=== PATIENT | male | born 1990 | race African-American/Black ===

== ENCOUNTER 2019-07-06 18:26 | Inpatient (IN) | payer MEDICARE, OTHER ==
[~2019-07-06] VITALS: Ht 180.3 cm; Wt 71.1 kg
[2019-07-06 18:30] VITALS: BP 217/120
--- NOTE | 2019-07-06 18:51 | Emergency Room Report ---
History of Present Illness General Chief Complaint: Abnormal Labs Source: Patient Present Illness HPI Patient resents with complaints of diffuse abdominal pain vomiting and diarrhea Patient is a dialysis patient who receives dialysis on Saturday and Saturdays is due tomorrow for his dialysis Denies any chest pain or shortness of breath denies any fevers denies any neck pain or photophobia Patient has not been able to take his medications also reports that his glucose level was reading high Denies any recent travel Patient still does make urine Allergies: Coded Allergies: No Known Allergies (Unverified , 07/06/19) Patient History Past Medical History: see triage record Reviewed Nursing Documentation: PMH: Agreed; PSxH: Agreed Nursing Documentation-PMH Past Medical History: No History, Except For Hx Hypertension: Yes Hx Diabetes: Yes Review of Systems All Other Systems: negative except mentioned in HPI Physical Exam Vital Signs Date Time Temp Pulse Resp B/P (MAP) Pulse Ox O2 Delivery O2 Flow Rate FiO2 07/06/19 18:22 98.4 92 18 237/137 (170) 98 Room Air Sp02 EP Interpretation: reviewed, normal General Appearance: mild distress - Appears uncomfortable and grimacing Head: normocephalic, atraumatic Eyes: bilateral eye PERRL, bilateral eye EOMI ENT: normal pharynx Neck: supple Respiratory: lungs clear, no respiratory distress, no retraction Cardiovascular #1: regular rate, rhythm Gastrointestinal: non tender - On palpation however subjectively points diffusely for the discomfort, soft Genitourinary: no CVA tenderness Musculoskeletal: normal inspection Neurologic: alert, oriented x3, responsive Psychiatric: normal inspection Skin: no rash Lymphatic: no adenopathy Procedures Critical Care Time Critical Care Time 40 minutes for multiple re-evaluations critical presentation concerning findings with concern for life-threatening pathology not including any procedural time Medical Decision Making Diagnostic Impression: Primary Impression: Hypertensive urgency, malignant Additional Impression: Renal failure ER Course Patient is a fairly complex patient with multiple differential to consideration including but not limited to cardiac cardiopulmonary and vascular emergencies Other pathology such as renal failure worsening hyperkalemia entertained Patient's blood pressure is improving with acute intervention Potassium level is appropriate glucose also improving without signs of lactic acidosis Patient requiring further inpatient care Labs Test 07/06/19 18:30 White Blood Count 3.5 K/UL (4.8-10.8) Red Blood Count 3.93 M/UL (4.70-6.10) Hemoglobin 12.2 G/DL (14.2-18.0) Hematocrit 35.7 % (42.0-52.0) Mean Corpuscular Volume 91 FL (80-99) Mean Corpuscular Hemoglobin 30.9 PG (27.0-31.0) Mean Corpuscular Hemoglobin Concent 34.0 G/DL (32.0-36.0) Red Cell Distribution Width 12.3 % (11.6-14.8) Platelet Count 183 K/UL (150-450) Mean Platelet Volume 6.1 FL (6.5-10.1) Neutrophils (%) (Auto) 62.9 % (45.0-75.0) Lymphocytes (%) (Auto) 27.6 % (20.0-45.0) Monocytes (%) (Auto) 5.1 % (1.0-10.0) Eosinophils (%) (Auto) 2.1 % (0.0-3.0) Basophils (%) (Auto) 2.3 % (0.0-2.0) Sodium Level 132 MMOL/L (136-145) Potassium Level 4.0 MMOL/L (3.5-5.1) Chloride Level 92 MMOL/L (98-107) Carbon Dioxide Level 27 MMOL/L (21-32) Anion Gap 13 mmol/L (5-15) Blood Urea Nitrogen 32 mg/dL (7-18) Creatinine 8.7 MG/DL (0.55-1.30) Estimat Glomerular Filtration Rate 7.4 mL/min (>60) Glucose Level 541 MG/DL (74-106) Calcium Level 8.7 MG/DL (8.5-10.1) Total Bilirubin 0.5 MG/DL (0.2-1.0) Aspartate Amino Transf (AST/SGOT) 79 U/L (15-37) Alanine Aminotransferase (ALT/SGPT) 69 U/L (12-78) Alkaline Phosphatase 100 U/L (46-116) Total Creatine Kinase 290 U/L (26-308) Total Protein 7.8 G/DL (6.4-8.2) Albumin 3.8 G/DL (3.4-5.0) Globulin 4.0 g/dL Albumin/Globulin Ratio 0.9 (1.0-2.7) Lipase 75 U/L (73-393) EKG Diagnostic Results Rate: normal Rhythm: NSR ST Segments: other - Nonspecific ST changes Rhythm Strip Diag. Results EP Interpretation: yes Rate: 80 Rhythm: NSR, no PVC's, no ectopy Chest X-Ray Diagnostic Results Chest X-Ray Diagnostic Results : Chest X-Ray Ordered: Yes # of Views/Limited/Complete: 1 View Indication: Chest Pain EP Interpretation: Yes Interpretation: no consolidation, no effusion, no pneumothorax Impression: No acute disease Electronically Signed by: Mehnaz Villarreal DO Last Vital Signs Date Time Temp Pulse Resp B/P (MAP) Pulse Ox O2 Delivery O2 Flow Rate FiO2 07/06/19 18:30 98.7 18 217/120 98 Room Air 07/06/19 18:22 92 Status: improved Disposition: ADMITTED INPATIENT Condition: Serious Mehnaz Villarreal DO Jul 06, 2019 18:51
[2019-07-06 18:54] LABS: BASOPHILS % (AUTO) 2.3 % (0.0-2.0); EOSINOPHILS % (AUTO) 2.1 % (0.0-3.0); HEMATOCRIT 35.7 % (42.0-52.0); HEMOGLOBIN 12.2 G/DL (14.2-18.0); LYMPHOCYTES % (AUTO) 27.6 % (20.0-45.0); MEAN CORPUSCULAR VOLUME 91 FL (80-99); MONOCYTES % (AUTO) 5.1 % (1.0-10.0); NEUTROPHILS % (AUTO) 62.9 % (45.0-75.0); PLATELET COUNT 183 K/UL (150-450); RED BLOOD COUNT 3.93 M/UL (4.70-6.10); RED CELL DISTRIBUTION WIDTH 12.3 % (11.6-14.8); WHITE BLOOD COUNT 3.5 K/UL (4.8-10.8)
[2019-07-06] MEDS ORDERED: Morphine Sulfate 4mg/ml Inj (IV USE ONLY) IVP ONE ×2 (19:00→19:45)
[2019-07-06 19:10] LABS: ALANINE AMINOTRANSFERASE 69 U/L (12-78); ALBUMIN 3.8 G/DL (3.4-5.0); ALBUMIN/GLOBULIN RATIO 0.9 (1.0-2.7); ALKALINE PHOSPHATASE 100 U/L (46-116); ANION GAP 13 mmol/L (5-15); ASPARTATE AMINO TRANSFERASE 79 U/L (15-37); BILIRUBIN,TOTAL 0.5 MG/DL (0.2-1.0); BLOOD UREA NITROGEN 32 mg/dL (7-18); CALCIUM 8.7 MG/DL (8.5-10.1); CARBON DIOXIDE 27 MMOL/L (21-32); CHLORIDE 92 MMOL/L (98-107); CREATINE KINASE 290 U/L (26-308); CREATININE 8.7 MG/DL (0.55-1.30); SODIUM 132 MMOL/L (136-145)
[2019-07-06] MEDS ORDERED: Insulin Human Regular 100units/ml 3ml IV ONE ×2 (19:15→21:00)
[2019-07-06] MEDS ORDERED: DiphenhydrAMINE 50mg/ml Inj IVP ONE (20:45)
[2019-07-06] MEDS ORDERED: Labetalol 5mg/ml 20ml vial IV ONE (21:00)
[2019-07-06] MEDS ORDERED: HYDRALAZINE HCL25 M1 ORAL (21:11)
[2019-07-06] MEDS ORDERED: LABETALOL HCL100 MG ORAL (21:11)
[2019-07-06] MEDS ORDERED: LANTUS SOL100 UNIT/1 SUBQ (21:11)
[2019-07-06] MEDS ORDERED: HUMALOG100 UNIT/4 SUBQ (21:11)
[2019-07-06] MEDS ORDERED: NIFEDIPINE ER30 M2 ORAL (21:11)
[2019-07-06] MEDS ORDERED: CATAPRES0.2 MG ORAL (21:11)
[2019-07-06 21:47] VITALS: BP 192/113
[2019-07-06] MEDS: Labetalol 5mg/ml 20ml vial IV SCH (21:55)
[2019-07-06] MEDS ORDERED: Levemir Flexpen SUBQ SCH (22:00)
[2019-07-06] MEDS ORDERED: HydrALAZINE 50mg tab ORAL SCH (22:00)
[2019-07-06] MEDS: NovoLOG Insulin Flexpen SUBQ SCH (22:13)
--- NOTE | 2019-07-06 22:45 | History and Physical Report ---
DATE OF ADMISSION: 07/06/2019 REASON FOR ADMISSION: 1. Hyperglycemia. 2. Abdominal pain. 3. Hypertension. HISTORY OF PRESENT ILLNESS: The patient is a pleasant 28-year-old gentleman, who undergoes hemodialysis every Saturday, , and Saturday, presenting to the emergency room for evaluation of current abdominal pain. The patient states has not been feeling well for the last one or two days. Started having nausea, vomiting, but no diarrhea. Noted to have extremely elevated glucose. Had not been taking his insulin therapy. Noted to also be hypertensive. The patient is resting otherwise comfortably, in no overt distress. No chest pain. No shortness of breath. ALLERGIES: No known drug allergies. PAST MEDICAL HISTORY: 1. Anemia of chronic kidney disease. 2. End-stage renal disease, on dialysis. 3. Hypertension. 4. Diabetes mellitus. 5. Secondary hyperparathyroidism PAST SURGICAL HISTORY: Right upper extremity AV fistula. FAMILY HISTORY: Positive for hypertension and diabetes. REVIEW OF SYSTEMS: NEUROLOGIC: The patient denies headache, change in vision, syncope or presyncopal episodes. CARDIOVASCULAR: No current chest pain, palpitations, angina. PULMONARY: Difficulty breathing, productive cough, sputum. GASTROINTESTINAL/GENITOURINARY: The patient having nausea and vomiting, but no diarrhea. ENDOCRINOLOGY: No night sweats, fevers, or chills. MUSCULOSKELETAL: The patient feeling weak, tired, and fatigue. LABORATORY DATA: Laboratories dated July 06, 2019, white cell count 3.5, hemoglobin 12.2, and platelet count 183. Sodium 132, creatinine 7.4, glucose 541, potassium 4.0. PHYSICAL EXAMINATION: VITAL SIGNS: Blood pressure 198/115, pulse 103, temperature 98.7. GENERAL: The patient awake, alert, not in distress. HEENT: Extraocular muscles intact. No lymphadenopathy noted. Oropharyngeal mucosa is clear and dry. CARDIOVASCULAR: S1, S2. No rubs or gallops. PULMONARY: Clear to auscultation bilaterally. No rales, rhonchi, or wheezes. ABDOMINAL: Nondistended and nontender. EXTREMITIES: No edema noted. ASSESSMENT AND PLAN: 1. End-stage renal disease, on dialysis. We will continue set hemodialysis session on Saturday, , Saturday. Orders have been placed. 2. Hypertensive urgency. We will continue home medications. Continue labetalol, Procardia, and hydralazine. 3. Hyperglycemia. We will re-initiate Levemir along with insulin sliding scale, low carbohydrate diet, and Accu-Cheks. 4. Anemia of chronic kidney disease. Hemoglobin currently 12.2. No need for Epogen. The patient is also hypertensive. 5. SCD prophylaxis for DVT prophylaxis. 6. GI prophylaxis with famotidine. 7. Gastroenterology has been consulted to further evaluate abdominal pain. Arsalan Rhodes MD DR: ALBERTO JOB#: [id number] CC:
[2019-07-06] MEDS: Morphine Sulfate 2mg/ml Inj(IV/IM USE ONLY) IVP PRN (23:57)
[2019-07-07] VITALS (7 sets, daily range): BP systolic 151–176; BP diastolic 86–110
[2019-07-07] MEDS: Labetalol 5mg/ml 20ml vial IV SCH ×2 (01:53→06:04)
[2019-07-07] MEDS: DiphenhydrAMINE 50mg/ml Inj IVP PRN ×3 (03:45→20:33)
[2019-07-07] MEDS: Morphine Sulfate 2mg/ml Inj(IV/IM USE ONLY) IVP PRN ×5 (04:09→23:22)
[2019-07-07 04:34] LABS: BASOPHILS % (AUTO) 2.7 % (0.0-2.0); EOSINOPHILS % (AUTO) 4.2 % (0.0-3.0); HEMATOCRIT 30.3 % (42.0-52.0); HEMOGLOBIN 10.6 G/DL (14.2-18.0); LYMPHOCYTES % (AUTO) 35.6 % (20.0-45.0); MEAN CORPUSCULAR VOLUME 89 FL (80-99); MONOCYTES % (AUTO) 10.6 % (1.0-10.0); NEUTROPHILS % (AUTO) 46.9 % (45.0-75.0); PLATELET COUNT 163 K/UL (150-450); RED BLOOD COUNT 3.42 M/UL (4.70-6.10); RED CELL DISTRIBUTION WIDTH 12.7 % (11.6-14.8); WHITE BLOOD COUNT 3.5 K/UL (4.8-10.8)
[2019-07-07 04:53] LABS: ANION GAP 9 mmol/L (5-15); BLOOD UREA NITROGEN 35 mg/dL (7-18); CALCIUM 8.3 MG/DL (8.5-10.1); CARBON DIOXIDE 29 MMOL/L (21-32); CHLORIDE 97 MMOL/L (98-107); CREATININE 8.9 MG/DL (0.55-1.30); POTASSIUM 3.5 MMOL/L (3.5-5.1); SODIUM 135 MMOL/L (136-145)
[2019-07-07] MEDS: NovoLOG Insulin Flexpen SUBQ SCH ×4 (06:22→21:16)
--- NOTE | 2019-07-07 08:26 | General Progress Note ---
Assessment/Plan Assessment/Plan: GI CONSULT Dictated Assessment - ill defined diffuse abd pain, recent onset - ESRD - patient appears comfortable Recommendations - check CT abd/pelvis - wean off of narcotics as tolerated - po diet ad chris Subjective Allergies: Coded Allergies: No Known Allergies (Unverified , 07/06/19) Objective Last 24 Hour Vital Signs Date Time Temp Pulse Resp B/P (MAP) Pulse Ox O2 Delivery O2 Flow Rate FiO2 07/07/19 06:04 88 166/110 07/07/19 04:00 98.4 87 20 167/108 (127) 98 07/07/19 04:00 Room Air 07/07/19 03:48 84 07/07/19 01:53 86 166/103 07/07/19 00:00 Room Air 07/07/19 00:00 98.2 86 20 176/110 (132) 100 07/06/19 23:24 84 07/06/19 22:07 Room Air 07/06/19 21:55 89 182/107 07/06/19 21:47 97.2 88 20 192/113 (139) 98 07/06/19 21:10 98.9 88 18 198/115 98 Room Air 07/06/19 20:57 103 198/115 07/06/19 20:16 98.9 07/06/19 19:37 183/102 07/06/19 19:26 98.9 07/06/19 18:30 98.7 18 217/120 98 Room Air 07/06/19 18:22 98.4 92 18 237/137 (170) 98 Room Air Intake and Output 07/06/19 07/07/19 19:00 07:00 Intake Total 720 ml Balance 720 ml Intake Oral 720 ml Laboratory Tests 07/06/19 18:30: White Blood Count 3.5L, Red Blood Count 3.93L, Hemoglobin 12.2L, Hematocrit 35.7L, Mean Corpuscular Volume 91, Mean Corpuscular Hemoglobin 30.9, Mean Corpuscular Hemoglobin Concent 34.0, Red Cell Distribution Width 12.3, Platelet Count 183, Mean Platelet Volume 6.1L, Neutrophils (%) (Auto) 62.9, Lymphocytes ( %) (Auto) 27.6, Monocytes (%) (Auto) 5.1, Eosinophils (%) (Auto) 2.1, Basophils (%) (Auto) 2.3H, Sodium Level 132L, Potassium Level 4.0, Chloride Level 92L, Carbon Dioxide Level 27, Anion Gap 13, Blood Urea Nitrogen 32H, Creatinine 8.7H , Estimat Glomerular Filtration Rate 7.4, Glucose Level 541*H, Calcium Level 8.7 , Total Bilirubin 0.5, Aspartate Amino Transf (AST/SGOT) 79H, Alanine Aminotransferase (ALT/SGPT) 69, Alkaline Phosphatase 100, Total Creatine Kinase 290, Total Protein 7.8, Albumin 3.8, Globulin 4.0, Albumin/Globulin Ratio 0.9L, Lipase 75 07/07/19 03:30: White Blood Count 3.5L, Red Blood Count 3.42L, Hemoglobin 10.6L, Hematocrit 30.3L, Mean Corpuscular Volume 89, Mean Corpuscular Hemoglobin 31.0, Mean Corpuscular Hemoglobin Concent 35.0, Red Cell Distribution Width 12.7, Platelet Count 163, Mean Platelet Volume 5.8L, Neutrophils (%) (Auto) 46.9, Lymphocytes ( %) (Auto) 35.6, Monocytes (%) (Auto) 10.6H, Eosinophils (%) (Auto) 4.2H, Basophils (%) (Auto) 2.7H, Sodium Level 135L, Potassium Level 3.5, Chloride Level 97L, Carbon Dioxide Level 29, Anion Gap 9, Blood Urea Nitrogen 35H, Creatinine 8.9H, Estimat Glomerular Filtration Rate 8.7, Glucose Level 124#H, Calcium Level 8.3L Height (Feet): 5 Height (Inches): 11.00 Weight (Pounds): 157 Alexander Curry MD Jul 07, 2019 08:26
--- NOTE | 2019-07-07 09:41 | Nephrology Progress Note ---
Assessment/Plan Assessment/Plan: A/P 1) ESRD- HD today ordered. TTS 2) DM- will adjust insulin therapy 3) HTN Urgency- can be downgraded once tolerated oral HTN pills 4) Abd Pain- per GI mgmt 5) DVT prophylaxsis with SCDs Subjective Date patient seen: Jul 07, 2019 Time patient seen: 09:36 ROS Limited/Unobtainable: Yes Allergies: Coded Allergies: No Known Allergies (Unverified , 07/06/19) Subjective Abd pain slightly better. No overt distress Objective Last 24 Hour Vital Signs Date Time Temp Pulse Resp B/P (MAP) Pulse Ox O2 Delivery O2 Flow Rate FiO2 07/07/19 08:25 84 174/103 07/07/19 08:24 174/103 07/07/19 06:04 88 166/110 07/07/19 04:00 98.4 87 20 167/108 (127) 98 07/07/19 04:00 Room Air 07/07/19 03:48 84 07/07/19 01:53 86 166/103 07/07/19 00:00 Room Air 07/07/19 00:00 98.2 86 20 176/110 (132) 100 07/06/19 23:24 84 07/06/19 22:07 Room Air 07/06/19 21:55 89 182/107 07/06/19 21:47 97.2 88 20 192/113 (139) 98 07/06/19 21:10 98.9 88 18 198/115 98 Room Air 07/06/19 20:57 103 198/115 07/06/19 20:16 98.9 07/06/19 19:37 183/102 07/06/19 19:26 98.9 07/06/19 18:30 98.7 18 217/120 98 Room Air 07/06/19 18:22 98.4 92 18 237/137 (170) 98 Room Air Intake and Output 07/06/19 07/07/19 19:00 07:00 Intake Total 720 ml Balance 720 ml Intake Oral 720 ml Laboratory Tests 07/06/19 18:30: White Blood Count 3.5L, Red Blood Count 3.93L, Hemoglobin 12.2L, Hematocrit 35.7L, Mean Corpuscular Volume 91, Mean Corpuscular Hemoglobin 30.9, Mean Corpuscular Hemoglobin Concent 34.0, Red Cell Distribution Width 12.3, Platelet Count 183, Mean Platelet Volume 6.1L, Neutrophils (%) (Auto) 62.9, Lymphocytes ( %) (Auto) 27.6, Monocytes (%) (Auto) 5.1, Eosinophils (%) (Auto) 2.1, Basophils (%) (Auto) 2.3H, Sodium Level 132L, Potassium Level 4.0, Chloride Level 92L, Carbon Dioxide Level 27, Anion Gap 13, Blood Urea Nitrogen 32H, Creatinine 8.7H , Estimat Glomerular Filtration Rate 7.4, Glucose Level 541*H, Calcium Level 8.7 , Total Bilirubin 0.5, Aspartate Amino Transf (AST/SGOT) 79H, Alanine Aminotransferase (ALT/SGPT) 69, Alkaline Phosphatase 100, Total Creatine Kinase 290, Total Protein 7.8, Albumin 3.8, Globulin 4.0, Albumin/Globulin Ratio 0.9L, Lipase 75 07/07/19 03:30: White Blood Count 3.5L, Red Blood Count 3.42L, Hemoglobin 10.6L, Hematocrit 30.3L, Mean Corpuscular Volume 89, Mean Corpuscular Hemoglobin 31.0, Mean Corpuscular Hemoglobin Concent 35.0, Red Cell Distribution Width 12.7, Platelet Count 163, Mean Platelet Volume 5.8L, Neutrophils (%) (Auto) 46.9, Lymphocytes ( %) (Auto) 35.6, Monocytes (%) (Auto) 10.6H, Eosinophils (%) (Auto) 4.2H, Basophils (%) (Auto) 2.7H, Sodium Level 135L, Potassium Level 3.5, Chloride Level 97L, Carbon Dioxide Level 29, Anion Gap 9, Blood Urea Nitrogen 35H, Creatinine 8.9H, Estimat Glomerular Filtration Rate 8.7, Glucose Level 124#H, Calcium Level 8.3L Height (Feet): 5 Height (Inches): 11.00 Weight (Pounds): 157 General Appearance: no apparent distress, alert EENT: normal ENT inspection Neck: normal alignment, supple Cardiovascular: normal rate, regular rhythm Respiratory/Chest: lungs clear, normal breath sounds Abdomen: non tender, soft Edema: no edema noted Arm (L), no edema noted Arm (R), no edema noted Leg (L), no edema noted Leg (R), no edema noted Pedal (L), no edema noted Pedal (R), no edema noted Generalized Arsalan Rhodes MD Jul 07, 2019 09:41
--- NOTE | 2019-07-07 12:02 | Diagnostic Imaging Report ---
Indication: Chest pain Technique: One view of the chest Comparison: none Findings: Lungs and pleural spaces are clear. Heart size is normal Impression: No acute process
--- NOTE | 2019-07-07 12:35 | Cardiology Report ---
APPROVED REPORT EKG Measurement Heart [id number] Normal sinus rhythm Normal ECG
--- NOTE | 2019-07-07 14:53 | Diagnostic Imaging Report ---
Indication: Abdominal pain Technique: Spiral acquisitions obtained through the abdomen and pelvis. Patient ingested oral contrast. No IV contrast utilized, per referring physician request.. Multiplanar reconstructions were generated. Total dose length product 948 mGycm. CTDIvol(s) 16 mGy. Dose reduction achieved using automated exposure control Comparison: None Findings: The patient is diffusely edematous, with edema of the subcutaneous fat mesenteric fat, and retroperitoneal fat. A small amount of fluid is also seen within the pelvis. There are trace bilateral pleural effusions and a small amount of pericardial fluid. The appendix is normal. No evidence of colonic diverticulosis or diverticulitis. No free intraperitoneal gas. No small bowel dilatation. The distal esophagus, stomach, duodenum are unremarkable. Lack of IV contrast limits assessment of the solid organs. The liver, gallbladder, pancreas, spleen, adrenals, kidneys are unremarkable. The bladder is somewhat thick walled. No pelvic mass or adenopathy. The included lung bases demonstrate atelectatic changes bilaterally and possibly some consolidation. There are trace bilateral pleural effusions, as mentioned earlier. The heart is mildly enlarged. The bones are unremarkable Impression: Evidence of anasarca, with diffuse edema of the subcutaneous, mesenteric, retroperitoneal fat, free intraperitoneal fluid, trace bilateral pleural effusions, trace pericardial effusion Thick-walled bladder, could indicate cystitis Basilar pulmonary parenchymal atelectasis and possible consolidation The CT scanner at [facility] is accredited by the [employer] and the scans are performed using protocols designed to limit radiation exposure to as low as reasonably achievable to attain images of sufficient resolution adequate for diagnostic evaluation.
[2019-07-07] MEDS ORDERED: DiphenhydrAMINE 50mg/ml Inj IVP SCH (15:00)
--- NOTE | 2019-07-07 21:15 | History and Physical Report ---
DATE OF ADMISSION: 07/06/2019 INSURANCE BILLING SPECIALIST: Arsalan Rhodes M.D. CHIEF COMPLAINT: Hyperglycemia, malignant hypertension, and renal failure, on dialysis. BRIEF HISTORY: This is a 28-year-old male, who lives at home, presents with increased elevated blood sugar. He also has malignant hypertension and ESRD. The patient was admitted to [facility] for further care. Currently, getting dialysis, eating, no complaint. REVIEW OF SYSTEMS: No chest pain. No shortness of breath. No nausea, vomiting, or diarrhea. PAST MEDICAL HISTORY: Hypertension, diabetes, and ESRD. PAST SURGICAL HISTORY: . MEDICATIONS: Famotidine, nifedipine, hydralazine, labetalol, insulin, Zofran, morphine, Tylenol, diphenhydramine, and insulin. ALLERGIES: Denies. SOCIAL HISTORY: No smoking. No alcohol. No intravenous drug abuse. FAMILY HISTORY: Noncontributory. PHYSICAL EXAMINATION: GENERAL: Calm in bed, oriented x3, no acute distress. VITAL SIGNS: Temperature is 98 degrees, pulse 86, respirations 20, and blood pressure 172/102. CARDIOVASCULAR: No murmurs. LUNGS: Distant and clear. ABDOMEN: Bowel sounds positive. Nontender. Nondistended. EXTREMITIES: No cyanosis, clubbing, or edema. NEUROLOGIC: The patient moves all extremities, slightly weak. LABORATORY AND DIAGNOSTIC DATA: Labs at this time show white count 3.5, H and H are 10 and 30, and platelets is 163,000. BMP shows sodium 135, chloride 97, BUN and are creatinine are 35 and 8.9, and glucose now is 124, initially was 541. ASSESSMENT: 1. Malignant hypertension. 2. Diabetes. 3. Hyperglycemia. 4. ESRD. 5. Anemia. PLAN: 1. Blood pressure and blood sugar control. 2. Dietary followup. 3. Nephrology followup. 4. Dialysis p.r.n. 5. Resume home medications. 6. CBC and BMP in the morning. Maikel Little D.O. DR: STEFANY JOB#: [id number] CC:
[2019-07-07] MEDS ORDERED: Levemir Flexpen SUBQ SCH ×2 (22:00)
[2019-07-08] VITALS: BP 154/99
[2019-07-08 04:00] VITALS: BP 170/112
--- NOTE | 2019-07-08 04:01 | Consultation ---
DATE OF CONSULTATION: 07/07/2019 GASTROENTEROLOGY CONSULTATION CHIEF COMPLAINT: I was asked to see this patient by Dr. Arsalan Rhodes for evaluation for abdominal pain. HISTORY OF PRESENT ILLNESS: The patient is a pleasant 28-year-old man who complains of a two-day history of nausea, vomiting, and abdominal pain. The patient is a dialysis patient and . The patient goes to dialysis on Tuesdays, , and Saturdays. He came to the emergency room with abdominal pain which is all over the abdomen. There has been some nausea and vomiting but none today. Last bowel movement was yesterday and last endoscopy was three months ago. He has not had a colonoscopy. PAST MEDICAL HISTORY: History of anemia of chronic disease, end-stage renal disease on dialysis, hypertension, diabetes mellitus, secondary hyperparathyroidism. PAST SURGICAL HISTORY: Status post AV fistula placement. FAMILY HISTORY: Positive for hypertension and diabetes. SOCIAL HISTORY: The patient is single, has no children. Does not smoke, drink alcohol, or use drugs. REVIEW OF SYSTEMS: Otherwise negative. PHYSICAL EXAMINATION: GENERAL: This is a debilitated young man, seen in his room. HEENT: Normocephalic and atraumatic. Sclerae anicteric. Dentition was fair. NECK: Supple. CHEST: Clear to auscultation. CARDIOVASCULAR: Revealed a regular rate. ABDOMEN: Soft with good bowel sounds. There is some mild tenderness to palpation but the patient was not apparently tender. He was distracted during the examination. There are no masses. EXTREMITIES: Revealed no edema. LABORATORY DATA: Noted. ASSESSMENT: This patient presents with vague complaints of abdominal pain of unclear etiology. He appears to be comfortable on examination and therefore can be treated conservatively. The patient can also have bowel regimen. I will check CT scan of the abdomen and pelvis to rule out any significant intraabdominal pathology. RECOMMENDATIONS: Per above discussion and per orders written in the chart. Thank you for asking me to participate in the care of this patient. Alexander Curry M.D. DR: Zafar JOB#: [id number] CC: FRANTZ
[2019-07-08] MEDS: DiphenhydrAMINE 50mg/ml Inj IVP PRN ×3 (05:42→23:58)
[2019-07-08] MEDS: Morphine Sulfate 2mg/ml Inj(IV/IM USE ONLY) IVP PRN ×5 (05:42→23:59)
[2019-07-08] MEDS: NovoLOG Insulin Flexpen SUBQ SCH ×4 (05:55→21:23)
[2019-07-08 07:25] LABS: EOSINOPHILS % (AUTO) 4.3 % (0.0-3.0); HEMOGLOBIN 10.8 G/DL (14.2-18.0); LYMPHOCYTES % (AUTO) 24.6 % (20.0-45.0); MEAN CORPUSCULAR VOLUME 92 FL (80-99); MONOCYTES % (AUTO) 8.1 % (1.0-10.0); NEUTROPHILS % (AUTO) 60.9 % (45.0-75.0); PLATELET COUNT 181 K/UL (150-450); RED BLOOD COUNT 3.46 M/UL (4.70-6.10); RED CELL DISTRIBUTION WIDTH 13.7 % (11.6-14.8); WHITE BLOOD COUNT 3.9 K/UL (4.8-10.8)
[2019-07-08 07:55] LABS: ANION GAP 8 mmol/L (5-15); BLOOD UREA NITROGEN 24 mg/dL (7-18); CALCIUM 8.4 MG/DL (8.5-10.1); CARBON DIOXIDE 29 MMOL/L (21-32); CHLORIDE 97 MMOL/L (98-107); CREATININE 7.7 MG/DL (0.55-1.30); SODIUM 134 MMOL/L (136-145)
[2019-07-08 07:56] LABS: POTASSIUM 4.9 MMOL/L (3.5-5.1)
[2019-07-08 08:00] VITALS: BP 162/95
--- NOTE | 2019-07-08 08:15 | Nephrology Progress Note ---
Assessment/Plan Assessment/Plan: A/P 1) ESRD- TTS - 3-4 L UF in am - anticipate DC Fri or Sat once BP under control 2) DM- insulin therapy 3) HTN Urgency- resolved. Increase labetalol 4) Abd Pain- per GI mgmt. CT results noted 5) DVT prophylaxsis with SCDs Subjective Date patient seen: Jul 08, 2019 Time patient seen: 08:13 ROS Limited/Unobtainable: No Allergies: Coded Allergies: No Known Allergies (Unverified , 07/06/19) Subjective Abd pain slightly better and now tolerating PO Objective Last 24 Hour Vital Signs Date Time Temp Pulse Resp B/P (MAP) Pulse Ox O2 Delivery O2 Flow Rate FiO2 07/08/19 05:42 91 170/112 07/08/19 04:00 98.1 91 18 170/112 (131) 98 07/08/19 04:00 Room Air 07/08/19 04:00 89 07/08/19 00:00 Room Air 07/08/19 00:00 96.0 95 20 154/99 (117) 98 07/08/19 00:00 89 07/07/19 22:00 Room Air 07/07/19 21:11 92 151/98 07/07/19 20:00 94 07/07/19 20:00 Room Air 07/07/19 20:00 97.0 92 20 151/98 (115) 99 07/07/19 17:47 Room Air 07/07/19 16:00 Room Air 07/07/19 16:00 95 07/07/19 16:00 97.8 83 20 157/86 (109) 98 07/07/19 13:27 88 07/07/19 12:33 172/102 07/07/19 12:00 98.1 86 20 172/102 (125) 99 07/07/19 12:00 Room Air 07/07/19 10:00 157/94 (115) 07/07/19 08:25 84 174/103 07/07/19 08:24 174/103 Intake and Output 07/07/19 07/08/19 19:00 07:00 Intake Total 840 ml 120 ml Balance 840 ml 120 ml Intake Oral 480 ml 120 ml Other 360 ml # Voids 1 Laboratory Tests 07/08/19 05:48: White Blood Count 3.9L, Red Blood Count 3.46L, Hemoglobin 10.8L, Hematocrit 32.0L, Mean Corpuscular Volume 92, Mean Corpuscular Hemoglobin 31.1H, Mean Corpuscular Hemoglobin Concent 33.6, Red Cell Distribution Width 13.7, Platelet Count 181, Mean Platelet Volume 5.3L, Neutrophils (%) (Auto) 60.9, Lymphocytes ( %) (Auto) 24.6, Monocytes (%) (Auto) 8.1, Eosinophils (%) (Auto) 4.3H, Basophils (%) (Auto) 2.0, Sodium Level 134L, Potassium Level 4.9, Chloride Level 97L, Carbon Dioxide Level 29, Anion Gap 8, Blood Urea Nitrogen 24H, Creatinine 7.7H, Estimat Glomerular Filtration Rate 10.4, Glucose Level 66L, Calcium Level 8.4L Height (Feet): 5 Height (Inches): 11.00 Weight (Pounds): 156 General Appearance: no apparent distress, alert EENT: normal ENT inspection Neck: normal alignment, supple Cardiovascular: normal rate, regular rhythm Respiratory/Chest: lungs clear, normal breath sounds Abdomen: non tender, soft Edema: no edema noted Arm (L), no edema noted Arm (R), no edema noted Leg (L), no edema noted Leg (R), no edema noted Pedal (L), no edema noted Pedal (R), no edema noted Generalized Arsalan Rhodes MD Jul 08, 2019 08:15
[2019-07-08 12:00] VITALS: BP 158/86
[2019-07-08] MEDS ORDERED: Labetalol 200mg tab ORAL SCH (14:00)
--- NOTE | 2019-07-08 14:41 | General Progress Note ---
Assessment/Plan Problem List: (1) Renal failure ICD Codes: N19 - Unspecified kidney failure SNOMED: 26984414, 166521845 (2) Hypertensive urgency, malignant ICD Codes: I16.0 - Hypertensive urgency SNOMED: 89560900, 784395283 (3) Hyperglycemia ICD Codes: R73.9 - Hyperglycemia, unspecified SNOMED: 12076108 (4) Abdominal pain ICD Codes: R10.9 - Unspecified abdominal pain SNOMED: 93235825 Status: unchanged Assessment/Plan: bp bs pain control dialysis prn cbc bmp am Subjective Allergies: Coded Allergies: No Known Allergies (Unverified , 07/06/19) All Systems: reviewed and negative except above Subjective sleepy calm Objective Last 24 Hour Vital Signs Date Time Temp Pulse Resp B/P (MAP) Pulse Ox O2 Delivery O2 Flow Rate FiO2 07/08/19 14:15 92 158/86 07/08/19 12:00 92 07/08/19 12:00 97.3 89 18 158/86 (110) 97 07/08/19 08:41 86 162/95 07/08/19 08:00 97.9 86 18 162/95 (117) 96 07/08/19 08:00 Room Air 07/08/19 08:00 88 07/08/19 05:42 91 170/112 07/08/19 04:00 98.1 91 18 170/112 (131) 98 07/08/19 04:00 Room Air 07/08/19 04:00 89 07/08/19 00:00 Room Air 07/08/19 00:00 96.0 95 20 154/99 (117) 98 07/08/19 00:00 89 07/07/19 22:00 Room Air 07/07/19 21:11 92 151/98 07/07/19 20:00 94 07/07/19 20:00 Room Air 07/07/19 20:00 97.0 92 20 151/98 (115) 99 07/07/19 17:47 Room Air 07/07/19 16:00 Room Air 07/07/19 16:00 95 07/07/19 16:00 97.8 83 20 157/86 (109) 98 Intake and Output 07/07/19 07/08/19 19:00 07:00 Intake Total 840 ml 120 ml Balance 840 ml 120 ml Intake Oral 480 ml 120 ml Other 360 ml # Voids 1 Laboratory Tests 07/08/19 05:48: White Blood Count 3.9L, Red Blood Count 3.46L, Hemoglobin 10.8L, Hematocrit 32.0L, Mean Corpuscular Volume 92, Mean Corpuscular Hemoglobin 31.1H, Mean Corpuscular Hemoglobin Concent 33.6, Red Cell Distribution Width 13.7, Platelet Count 181, Mean Platelet Volume 5.3L, Neutrophils (%) (Auto) 60.9, Lymphocytes ( %) (Auto) 24.6, Monocytes (%) (Auto) 8.1, Eosinophils (%) (Auto) 4.3H, Basophils (%) (Auto) 2.0, Sodium Level 134L, Potassium Level 4.9, Chloride Level 97L, Carbon Dioxide Level 29, Anion Gap 8, Blood Urea Nitrogen 24H, Creatinine 7.7H, Estimat Glomerular Filtration Rate 10.4, Glucose Level 66L, Calcium Level 8.4L Height (Feet): 5 Height (Inches): 11.00 Weight (Pounds): 156 General Appearance: lethargic EENT: normal ENT inspection Neck: normal alignment Cardiovascular: normal peripheral pulses, normal rate, regular rhythm Respiratory/Chest: chest wall non-tender, lungs clear, normal breath sounds Abdomen: normal bowel sounds, non tender, soft Extremities: normal inspection Edema: no edema noted Arm (L), no edema noted Arm (R), no edema noted Leg (L), no edema noted Leg (R), no edema noted Pedal (L), no edema noted Pedal (R), no edema noted Generalized Neurologic: responsive, motor weakness Skin: normal pigmentation, warm/dry Maikel Little DO Jul 08, 2019 14:41
[2019-07-08 16:00] VITALS: BP 163/95
[2019-07-08 20:00] VITALS: BP 185/106
[2019-07-08] MEDS: Labetalol 200mg tab ORAL SCH (21:24)
[2019-07-08] MEDS ORDERED: Levemir Flexpen SUBQ SCH (22:00)
--- NOTE | 2019-07-08 22:47 | General Progress Note ---
Assessment/Plan Status: unchanged Assessment/Plan: Assessment - ill defined diffuse abd pain, recent onset - ESRD - patient appears comfortable at encounters - mild transaminitis Recommendations - Re check LFT - laxative trial - wean off of narcotics as tolerated - po diet ad chris Subjective Allergies: Coded Allergies: No Known Allergies (Unverified , 07/06/19) Subjective feels ok still with some abd pain tolerating PO Objective Last 24 Hour Vital Signs Date Time Temp Pulse Resp B/P (MAP) Pulse Ox O2 Delivery O2 Flow Rate FiO2 07/08/19 21:24 91 185/106 07/08/19 21:23 91 185/106 07/08/19 20:37 98.4 07/08/19 20:23 Room Air 07/08/19 20:00 97.9 91 18 185/106 (132) 97 07/08/19 16:00 88 07/08/19 16:00 98.4 89 18 163/95 (117) 97 07/08/19 14:15 92 158/86 07/08/19 12:00 92 07/08/19 12:00 97.3 89 18 158/86 (110) 97 07/08/19 08:41 86 162/95 07/08/19 08:00 97.9 86 18 162/95 (117) 96 07/08/19 08:00 Room Air 07/08/19 08:00 88 07/08/19 05:42 91 170/112 07/08/19 04:00 98.1 91 18 170/112 (131) 98 07/08/19 04:00 Room Air 07/08/19 04:00 89 07/08/19 00:00 Room Air 07/08/19 00:00 96.0 95 20 154/99 (117) 98 07/08/19 00:00 89 Intake and Output 07/07/19 07/08/19 18:59 06:59 Intake Total 840 ml 120 ml Balance 840 ml 120 ml Intake Oral 480 ml 120 ml Other 360 ml # Voids 1 Laboratory Tests 07/08/19 05:48: White Blood Count 3.9L, Red Blood Count 3.46L, Hemoglobin 10.8L, Hematocrit 32.0L, Mean Corpuscular Volume 92, Mean Corpuscular Hemoglobin 31.1H, Mean Corpuscular Hemoglobin Concent 33.6, Red Cell Distribution Width 13.7, Platelet Count 181, Mean Platelet Volume 5.3L, Neutrophils (%) (Auto) 60.9, Lymphocytes ( %) (Auto) 24.6, Monocytes (%) (Auto) 8.1, Eosinophils (%) (Auto) 4.3H, Basophils (%) (Auto) 2.0, Sodium Level 134L, Potassium Level 4.9, Chloride Level 97L, Carbon Dioxide Level 29, Anion Gap 8, Blood Urea Nitrogen 24H, Creatinine 7.7H, Estimat Glomerular Filtration Rate 10.4, Glucose Level 66L, Calcium Level 8.4L Height (Feet): 5 Height (Inches): 11.00 Weight (Pounds): 156 Objective WDWN NCAT supple CTA RRR abd soft ND no edema Alexander Curry MD Jul 08, 2019 22:47
[2019-07-08] MEDS: Sorbitol Solution UD 30ml ORAL ONE (23:58)
[2019-07-09] VITALS (7 sets, daily range): BP systolic 131–199; BP diastolic 62–110
[2019-07-09] MEDS: Sorbitol Solution UD 30ml ORAL ONE ×2 (00:02→00:05)
[2019-07-09] MEDS: Morphine Sulfate 2mg/ml Inj(IV/IM USE ONLY) IVP PRN ×5 (04:32→21:25)
[2019-07-09] MEDS: Labetalol 200mg tab ORAL SCH ×3 (05:58→21:24)
[2019-07-09] MEDS: NovoLOG Insulin Flexpen SUBQ SCH ×3 (05:59→21:27)
[2019-07-09 06:26] LABS: BASOPHILS % (AUTO) 1.2 % (0.0-2.0); EOSINOPHILS % (AUTO) 4.2 % (0.0-3.0); HEMOGLOBIN 9.9 G/DL (14.2-18.0); LYMPHOCYTES % (AUTO) 24.5 % (20.0-45.0); MEAN CORPUSCULAR VOLUME 96 FL (80-99); MONOCYTES % (AUTO) 6.6 % (1.0-10.0); NEUTROPHILS % (AUTO) 63.4 % (45.0-75.0); PLATELET COUNT 169 K/UL (150-450); RED BLOOD COUNT 3.24 M/UL (4.70-6.10); RED CELL DISTRIBUTION WIDTH 14.1 % (11.6-14.8); WHITE BLOOD COUNT 4.1 K/UL (4.8-10.8)
[2019-07-09 06:52] LABS: ALANINE AMINOTRANSFERASE 42 U/L (12-78); ALBUMIN 3.4 G/DL (3.4-5.0); ALKALINE PHOSPHATASE 88 U/L (46-116); ANION GAP 7 mmol/L (5-15); ASPARTATE AMINO TRANSFERASE 42 U/L (15-37); BILIRUBIN,TOTAL 0.4 MG/DL (0.2-1.0); BLOOD UREA NITROGEN 36 mg/dL (7-18); CALCIUM 7.9 MG/DL (8.5-10.1); CARBON DIOXIDE 28 MMOL/L (21-32); CHLORIDE 92 MMOL/L (98-107); POTASSIUM 4.8 MMOL/L (3.5-5.1); SODIUM 127 MMOL/L (136-145)
--- NOTE | 2019-07-09 09:23 | Nephrology Progress Note ---
Assessment/Plan Status: unchanged Assessment/Plan: A/P 1) ESRD- TTS - 3-4 L UF today - anticipate DC Fri once BP under control 2) DM- insulin therapy 3) HTN Urgency- adjust po meds 4) Abd Pain- per GI mgmt. CT results noted - resolved and eating better 5) DVT prophylaxsis with SCDs Subjective Date patient seen: Jul 09, 2019 Time patient seen: 09:20 ROS Limited/Unobtainable: No Allergies: Coded Allergies: No Known Allergies (Unverified , 07/06/19) Subjective Abd pain improved. Eating improved Objective Last 24 Hour Vital Signs Date Time Temp Pulse Resp B/P (MAP) Pulse Ox O2 Delivery O2 Flow Rate FiO2 07/09/19 08:38 Room Air 07/09/19 05:58 91 187/102 07/09/19 05:11 98.1 07/09/19 04:06 98.1 91 19 187/102 (130) 98 07/09/19 00:18 98.0 88 18 175/98 (123) 98 07/08/19 21:24 91 185/106 07/08/19 21:23 91 185/106 07/08/19 20:23 Room Air 07/08/19 20:00 97.9 91 18 185/106 (132) 97 07/08/19 16:00 88 07/08/19 16:00 98.4 89 18 163/95 (117) 97 07/08/19 14:15 92 158/86 07/08/19 12:00 92 07/08/19 12:00 97.3 89 18 158/86 (110) 97 Intake and Output 07/08/19 07/09/19 19:00 07:00 Intake Total 1500 ml Output Total 0 ml Balance 1500 ml Other 1500 ml Output Urine Total 0 ml Laboratory Tests 07/09/19 05:10: White Blood Count 4.1L, Red Blood Count 3.24L, Hemoglobin 9.9L, Hematocrit 31.0L , Mean Corpuscular Volume 96, Mean Corpuscular Hemoglobin 30.7, Mean Corpuscular Hemoglobin Concent 32.1, Red Cell Distribution Width 14.1, Platelet Count 169, Mean Platelet Volume 6.0L, Neutrophils (%) (Auto) 63.4, Lymphocytes ( %) (Auto) 24.5, Monocytes (%) (Auto) 6.6, Eosinophils (%) (Auto) 4.2H, Basophils (%) (Auto) 1.2, Sodium Level 127L, Potassium Level 4.8, Chloride Level 92L, Carbon Dioxide Level 28, Anion Gap 7, Blood Urea Nitrogen 36H, Creatinine 10.0H, Estimat Glomerular Filtration Rate 7.6, Glucose Level 495#H, Calcium Level 7.9L, Total Bilirubin 0.4, Aspartate Amino Transf (AST/SGOT) 42H, Alanine Aminotransferase (ALT/SGPT) 42, Alkaline Phosphatase 88, Total Protein 6.8, Albumin 3.4, Globulin 3.4, Albumin/Globulin Ratio 1.0 Height (Feet): 5 Height (Inches): 11.00 Weight (Pounds): 156 General Appearance: no apparent distress, alert EENT: normal ENT inspection Neck: normal alignment, supple Cardiovascular: normal rate, regular rhythm Respiratory/Chest: lungs clear, normal breath sounds Abdomen: non tender, soft Edema: no edema noted Arm (L), no edema noted Arm (R), no edema noted Leg (L), no edema noted Leg (R), no edema noted Pedal (L), no edema noted Pedal (R), no edema noted Generalized Arsalan Rhodes MD Jul 09, 2019 09:23
[2019-07-09] MEDS: cloNIDine 0.2mg Tab ORAL SCH ×3 (09:30→21:23)
[2019-07-09] MEDS: DiphenhydrAMINE 50mg/ml Inj IVP PRN ×2 (09:50→18:12)
--- NOTE | 2019-07-09 11:56 | General Progress Note ---
Assessment/Plan Status: unchanged Assessment/Plan: Assessment - ill defined diffuse abd pain, recent onset - ESRD - patient appears comfortable at encounters - mild transaminitis Recommendations - Re check LFT - laxative trial - wean off of narcotics as tolerated - po diet ad chris Subjective Allergies: Coded Allergies: No Known Allergies (Unverified , 07/06/19) Subjective feels ok still with some abd pain tolerating PO no BM x 3-4 days Objective Last 24 Hour Vital Signs Date Time Temp Pulse Resp B/P (MAP) Pulse Ox O2 Delivery O2 Flow Rate FiO2 07/09/19 09:30 187/102 07/09/19 08:38 Room Air 07/09/19 08:00 97.6 88 18 160/99 (119) 96 07/09/19 05:58 91 187/102 07/09/19 05:11 98.1 07/09/19 04:06 98.1 91 19 187/102 (130) 98 07/09/19 00:18 98.0 88 18 175/98 (123) 98 07/08/19 21:24 91 185/106 07/08/19 21:23 91 185/106 07/08/19 20:23 Room Air 07/08/19 20:00 97.9 91 18 185/106 (132) 97 07/08/19 16:00 88 07/08/19 16:00 98.4 89 18 163/95 (117) 97 07/08/19 14:15 92 158/86 07/08/19 12:00 92 07/08/19 12:00 97.3 89 18 158/86 (110) 97 Intake and Output 07/08/19 07/09/19 19:00 07:00 Intake Total 1500 ml Output Total 0 ml Balance 1500 ml Other 1500 ml Output Urine Total 0 ml Laboratory Tests 07/09/19 05:10: White Blood Count 4.1L, Red Blood Count 3.24L, Hemoglobin 9.9L, Hematocrit 31.0L , Mean Corpuscular Volume 96, Mean Corpuscular Hemoglobin 30.7, Mean Corpuscular Hemoglobin Concent 32.1, Red Cell Distribution Width 14.1, Platelet Count 169, Mean Platelet Volume 6.0L, Neutrophils (%) (Auto) 63.4, Lymphocytes ( %) (Auto) 24.5, Monocytes (%) (Auto) 6.6, Eosinophils (%) (Auto) 4.2H, Basophils (%) (Auto) 1.2, Sodium Level 127L, Potassium Level 4.8, Chloride Level 92L, Carbon Dioxide Level 28, Anion Gap 7, Blood Urea Nitrogen 36H, Creatinine 10.0H, Estimat Glomerular Filtration Rate 7.6, Glucose Level 495#H, Calcium Level 7.9L, Total Bilirubin 0.4, Aspartate Amino Transf (AST/SGOT) 42H, Alanine Aminotransferase (ALT/SGPT) 42, Alkaline Phosphatase 88, Total Protein 6.8, Albumin 3.4, Globulin 3.4, Albumin/Globulin Ratio 1.0 Height (Feet): 5 Height (Inches): 11.00 Weight (Pounds): 156 Objective WDWN NCAT supple CTA RRR abd soft ND no edema Alexander Curry MD Jul 09, 2019 11:56
[2019-07-09] MEDS ORDERED: Sorbitol Solution UD 30ml ORAL SCH ×2 (12:00→19:00)
--- NOTE | 2019-07-09 13:33 | General Progress Note ---
Assessment/Plan Problem List: (1) Renal failure ICD Codes: N19 - Unspecified kidney failure SNOMED: 03556336, 240058114 (2) Hypertensive urgency, malignant ICD Codes: I16.0 - Hypertensive urgency SNOMED: 32717953, 331634785 (3) Hyperglycemia ICD Codes: R73.9 - Hyperglycemia, unspecified SNOMED: 14674450 (4) Abdominal pain ICD Codes: R10.9 - Unspecified abdominal pain SNOMED: 72236772 Status: unchanged Assessment/Plan: bp bs pain control dialysis prn cbc bmp am Subjective Constitutional: Reports: weakness Allergies: Coded Allergies: No Known Allergies (Unverified , 07/06/19) All Systems: reviewed and negative except above Subjective sleepy calm Objective Last 24 Hour Vital Signs Date Time Temp Pulse Resp B/P (MAP) Pulse Ox O2 Delivery O2 Flow Rate FiO2 07/09/19 12:00 98.1 83 19 134/62 (86) 98 07/09/19 09:30 187/102 07/09/19 08:38 Room Air 07/09/19 08:00 97.6 88 18 160/99 (119) 96 07/09/19 05:58 91 187/102 07/09/19 05:11 98.1 07/09/19 04:06 98.1 91 19 187/102 (130) 98 07/09/19 00:18 98.0 88 18 175/98 (123) 98 07/08/19 21:24 91 185/106 07/08/19 21:23 91 185/106 07/08/19 20:23 Room Air 07/08/19 20:00 97.9 91 18 185/106 (132) 97 07/08/19 16:00 88 07/08/19 16:00 98.4 89 18 163/95 (117) 97 07/08/19 14:15 92 158/86 Intake and Output 07/08/19 07/09/19 19:00 07:00 Intake Total 1500 ml Output Total 0 ml Balance 1500 ml Other 1500 ml Output Urine Total 0 ml Laboratory Tests 07/09/19 05:10: White Blood Count 4.1L, Red Blood Count 3.24L, Hemoglobin 9.9L, Hematocrit 31.0L , Mean Corpuscular Volume 96, Mean Corpuscular Hemoglobin 30.7, Mean Corpuscular Hemoglobin Concent 32.1, Red Cell Distribution Width 14.1, Platelet Count 169, Mean Platelet Volume 6.0L, Neutrophils (%) (Auto) 63.4, Lymphocytes ( %) (Auto) 24.5, Monocytes (%) (Auto) 6.6, Eosinophils (%) (Auto) 4.2H, Basophils (%) (Auto) 1.2, Sodium Level 127L, Potassium Level 4.8, Chloride Level 92L, Carbon Dioxide Level 28, Anion Gap 7, Blood Urea Nitrogen 36H, Creatinine 10.0H, Estimat Glomerular Filtration Rate 7.6, Glucose Level 495#H, Calcium Level 7.9L, Total Bilirubin 0.4, Aspartate Amino Transf (AST/SGOT) 42H, Alanine Aminotransferase (ALT/SGPT) 42, Alkaline Phosphatase 88, Total Protein 6.8, Albumin 3.4, Globulin 3.4, Albumin/Globulin Ratio 1.0 Height (Feet): 5 Height (Inches): 11.00 Weight (Pounds): 156 General Appearance: lethargic EENT: normal ENT inspection Neck: normal alignment Cardiovascular: normal peripheral pulses, normal rate, regular rhythm Respiratory/Chest: chest wall non-tender, lungs clear, normal breath sounds Abdomen: normal bowel sounds, non tender, soft Extremities: normal inspection Edema: no edema noted Arm (L), no edema noted Arm (R), no edema noted Leg (L), no edema noted Leg (R), no edema noted Pedal (L), no edema noted Pedal (R), no edema noted Generalized Neurologic: motor weakness Skin: normal pigmentation, warm/dry Maikel Little DO Jul 09, 2019 13:33
[2019-07-09] MEDS ORDERED: NovoLOG Insulin Flexpen SUBQ SCH (18:15)
[2019-07-09] MEDS ORDERED: Levemir Flexpen SUBQ SCH (22:00)
[2019-07-10] MEDS: HydrALAZINE 25mg tab ORAL PRN ×2 (00:15→11:44)
[2019-07-10] MEDS: DiphenhydrAMINE 50mg/ml Inj IVP PRN ×3 (02:06→19:57)
[2019-07-10 04:00] VITALS: BP 178/75
[2019-07-10] MEDS: cloNIDine 0.2mg Tab ORAL SCH (05:54)
[2019-07-10] MEDS: Labetalol 200mg tab ORAL SCH ×3 (05:54→22:27)
[2019-07-10 06:24] LABS: BASOPHILS % (AUTO) 1.5 % (0.0-2.0); EOSINOPHILS % (AUTO) 5.1 % (0.0-3.0); HEMATOCRIT 30.7 % (42.0-52.0); LYMPHOCYTES % (AUTO) 27.9 % (20.0-45.0); MEAN CORPUSCULAR VOLUME 94 FL (80-99); MONOCYTES % (AUTO) 7.2 % (1.0-10.0); NEUTROPHILS % (AUTO) 58.4 % (45.0-75.0); PLATELET COUNT 161 K/UL (150-450); RED BLOOD COUNT 3.26 M/UL (4.70-6.10); RED CELL DISTRIBUTION WIDTH 13.6 % (11.6-14.8); WHITE BLOOD COUNT 3.5 K/UL (4.8-10.8)
[2019-07-10] MEDS: NovoLOG Insulin Flexpen SUBQ SCH ×5 (06:38→22:31)
[2019-07-10] MEDS: Morphine Sulfate 2mg/ml Inj(IV/IM USE ONLY) IVP PRN ×4 (06:38→22:14)
[2019-07-10 07:22] LABS: ANION GAP 5 mmol/L (5-15); BLOOD UREA NITROGEN 34 mg/dL (7-18); CALCIUM 8.5 MG/DL (8.5-10.1); CARBON DIOXIDE 30 MMOL/L (21-32); CHLORIDE 94 MMOL/L (98-107); CREATININE 8.4 MG/DL (0.55-1.30); POTASSIUM 4.1 MMOL/L (3.5-5.1); SODIUM 129 MMOL/L (136-145)
[2019-07-10 08:00] VITALS: BP 157/91
--- NOTE | 2019-07-10 08:10 | Nephrology Progress Note ---
Assessment/Plan Status: unchanged Assessment/Plan: A/P 1) ESRD- TTS - 3-4 L UF - anticipate DC Sat once BP and glucose controlled 2) DM- insulin therapy per Endo 3) HTN Urgency- adjust po meds 4) Abd Pain- per GI mgmt. - resolved and eating better 5) DVT prophylaxsis with SCDs Subjective Date patient seen: Jul 10, 2019 Time patient seen: 08:08 ROS Limited/Unobtainable: No Allergies: Coded Allergies: No Known Allergies (Unverified , 07/06/19) Subjective Abd pain much improved and eating well Objective Last 24 Hour Vital Signs Date Time Temp Pulse Resp B/P (MAP) Pulse Ox O2 Delivery O2 Flow Rate FiO2 07/10/19 05:54 178/75 07/10/19 05:54 80 178/75 07/10/19 04:00 97.4 80 19 178/75 (109) 97 07/10/19 00:15 192/110 07/09/19 23:57 99.0 89 18 192/110 (137) 96 07/09/19 21:55 97.2 07/09/19 21:24 92 199/109 07/09/19 21:23 199/109 07/09/19 21:23 92 199/109 07/09/19 21:00 Room Air 07/09/19 20:00 98.1 92 18 199/109 (139) 97 07/09/19 16:00 97.2 86 19 131/69 (89) 98 07/09/19 14:09 134/62 07/09/19 14:09 83 134/62 07/09/19 12:00 98.1 83 19 134/62 (86) 98 07/09/19 09:30 187/102 07/09/19 08:38 Room Air Intake and Output 07/09/19 07/10/19 19:00 07:00 Intake Total 920 ml Output Total 3000 ml 600 ml Balance -2080 ml -600 ml Other 920 ml Output Urine Total 600 ml Hemodialysis UF 3000 ml Laboratory Tests 07/09/19 14:15: Stool Occult Blood [Pending] 07/09/19 17:00: Glucose Level 603#*H 07/10/19 05:35: Glucose Level 461#H, White Blood Count 3.5L, Red Blood Count 3.26L, Hemoglobin 10.0L, Hematocrit 30.7L, Mean Corpuscular Volume 94, Mean Corpuscular Hemoglobin 30.7, Mean Corpuscular Hemoglobin Concent 32.7, Red Cell Distribution Width 13.6, Platelet Count 161, Mean Platelet Volume 6.1L, Neutrophils (%) (Auto) 58.4, Lymphocytes (%) (Auto) 27.9, Monocytes (%) (Auto) 7.2, Eosinophils (%) (Auto) 5.1H, Basophils (%) (Auto) 1.5, Sodium Level 129L, Potassium Level 4.1, Chloride Level 94L, Carbon Dioxide Level 30, Anion Gap 5, Blood Urea Nitrogen 34H, Creatinine 8.4H, Estimat Glomerular Filtration Rate 9.3 , Calcium Level 8.5 Height (Feet): 5 Height (Inches): 11.00 Weight (Pounds): 156 General Appearance: no apparent distress, alert EENT: normal ENT inspection Neck: normal alignment, supple Cardiovascular: normal rate, regular rhythm Respiratory/Chest: lungs clear, normal breath sounds Abdomen: non tender, soft Edema: no edema noted Arm (L), no edema noted Arm (R), no edema noted Leg (L), no edema noted Leg (R), no edema noted Pedal (L), no edema noted Pedal (R), no edema noted Generalized Arsalan Rhodes MD Jul 10, 2019 08:09
--- NOTE | 2019-07-10 09:18 | General Progress Note ---
Assessment/Plan Problem List: (1) Renal failure ICD Codes: N19 - Unspecified kidney failure SNOMED: 07329842, 081949442 (2) Hypertensive urgency, malignant ICD Codes: I16.0 - Hypertensive urgency SNOMED: 29687845, 306227984 (3) Hyperglycemia ICD Codes: R73.9 - Hyperglycemia, unspecified SNOMED: 37208660 (4) Abdominal pain ICD Codes: R10.9 - Unspecified abdominal pain SNOMED: 62021570 Status: unchanged Assessment/Plan: bp bs pain control dialysis prn cbc bmp am Subjective Constitutional: Reports: weakness Allergies: Coded Allergies: No Known Allergies (Unverified , 07/06/19) All Systems: reviewed and negative except above Subjective sleepy calm Objective Last 24 Hour Vital Signs Date Time Temp Pulse Resp B/P (MAP) Pulse Ox O2 Delivery O2 Flow Rate FiO2 07/10/19 09:04 83 157/91 07/10/19 08:00 97.4 83 16 157/91 (113) 99 07/10/19 05:54 178/75 07/10/19 05:54 80 178/75 07/10/19 04:00 97.4 80 19 178/75 (109) 97 07/10/19 00:15 192/110 07/09/19 23:57 99.0 89 18 192/110 (137) 96 07/09/19 21:55 97.2 07/09/19 21:24 92 199/109 07/09/19 21:23 199/109 07/09/19 21:23 92 199/109 07/09/19 21:00 Room Air 07/09/19 20:00 98.1 92 18 199/109 (139) 97 07/09/19 16:00 97.2 86 19 131/69 (89) 98 07/09/19 14:09 134/62 07/09/19 14:09 83 134/62 07/09/19 12:00 98.1 83 19 134/62 (86) 98 07/09/19 09:30 187/102 Intake and Output 07/09/19 07/10/19 19:00 07:00 Intake Total 920 ml Output Total 3000 ml 600 ml Balance -2080 ml -600 ml Other 920 ml Output Urine Total 600 ml Hemodialysis UF 3000 ml Laboratory Tests 07/09/19 14:15: Stool Occult Blood [Pending] 07/09/19 17:00: Glucose Level 603#*H 07/10/19 05:35: Glucose Level 461#H, White Blood Count 3.5L, Red Blood Count 3.26L, Hemoglobin 10.0L, Hematocrit 30.7L, Mean Corpuscular Volume 94, Mean Corpuscular Hemoglobin 30.7, Mean Corpuscular Hemoglobin Concent 32.7, Red Cell Distribution Width 13.6, Platelet Count 161, Mean Platelet Volume 6.1L, Neutrophils (%) (Auto) 58.4, Lymphocytes (%) (Auto) 27.9, Monocytes (%) (Auto) 7.2, Eosinophils (%) (Auto) 5.1H, Basophils (%) (Auto) 1.5, Sodium Level 129L, Potassium Level 4.1, Chloride Level 94L, Carbon Dioxide Level 30, Anion Gap 5, Blood Urea Nitrogen 34H, Creatinine 8.4H, Estimat Glomerular Filtration Rate 9.3 , Calcium Level 8.5 Height (Feet): 5 Height (Inches): 11.00 Weight (Pounds): 156 General Appearance: lethargic EENT: normal ENT inspection Neck: normal alignment Cardiovascular: normal peripheral pulses, normal rate, regular rhythm Respiratory/Chest: chest wall non-tender, lungs clear, normal breath sounds Abdomen: normal bowel sounds, non tender, soft Extremities: normal inspection Edema: no edema noted Arm (L), no edema noted Arm (R), no edema noted Leg (L), no edema noted Leg (R), no edema noted Pedal (L), no edema noted Pedal (R), no edema noted Generalized Neurologic: motor weakness Skin: normal pigmentation, warm/dry Maikel Little DO Jul 10, 2019 09:18
[2019-07-10 12:00] VITALS: BP 185/105
[2019-07-10 14:15] VITALS: BP 155/75
[2019-07-10 16:00] VITALS: BP 111/60
[2019-07-10] MEDS: Levemir Flexpen SUBQ SCH (17:35)
[2019-07-10 20:00] VITALS: BP 189/112
[2019-07-10] MEDS ORDERED: NovoLOG Insulin Flexpen SUBQ SCH (20:15)
[2019-07-10] MEDS ORDERED: Levemir Flexpen SUBQ SCH (20:16)
--- NOTE | 2019-07-10 20:46 | Consultation ---
DATE OF CONSULTATION: 07/10/2019 ENDOCRINOLOGY CONSULTATION CONSULTING PHYSICIAN: Nino Cintron M.D. REFERRING PHYSICIAN: Arsalan Rhodes M.D. REASON FOR CONSULTATION: Diabetes management. HISTORY OF PRESENT ILLNESS: The patient is a 29-year-old male with history of type 1 diabetes for the past 16 years on insulin Lantus and Humalog as an outpatient. The patient was admitted to the hospital with nausea, vomiting, abdominal pain, has been on hemodialysis Saturday, Saturday, and Saturday. Glucose was out of range during the hospital stay. I was called to assist in management of diabetes. PAST MEDICAL HISTORY: 1. Type 1 diabetes. 2. End-stage renal disease, on hemodialysis. 3. Anemia of chronic kidney disease. 4. Hypertension. 5. Secondary hyperparathyroidism. ALLERGIES TO MEDICATIONS: None. PAST SURGICAL HISTORY: Right upper extremity AV fistula placement. FAMILY HISTORY: Diabetes and hypertension. REVIEW OF SYSTEMS: A 12-point review of systems was performed and the pertinent positives and negatives are mentioned in the history of present illness. LABORATORY DATA: Sodium 129, potassium 4.1, chloride 94, bicarbonate 30, BUN 34, creatinine 8.4, glucose of 602. PHYSICAL EXAMINATION: GENERAL: He is awake and alert. VITAL SIGNS: Blood pressure is 185/105, pulse 82, temperature 97.4, respiratory rate 16. HEENT: Pupils are equal and reactive to light. Sclerae anicteric. NECK: No JVD. HEART: Regular. LUNGS: Clear. ABDOMEN: Positive bowel sounds. DIAGNOSES: 1. Diabetes out of control type 1. 2. End-stage renal disease on hemodialysis. DISCUSSION: 1. Change Levemir to 12 units b.i.d. 2. Change NovoLog 7 units before each meal. 3. Change NovoLog sliding scale to medium dose. 4. Hypoglycemia protocol. 5. Further adjustment according to blood glucose values. Thank you, Dr. Rhodes, for the courtesy of this consultation. Nino Cintron M.D. DR: MARIELLA/dorothy JOB#: [id number] CC: FRANTZ
--- NOTE | 2019-07-10 21:22 | General Progress Note ---
Assessment/Plan Status: unchanged Assessment/Plan: Assessment - ill defined diffuse abd pain - resolved - constipation - resolved - ESRD - mild transaminitis Recommendations - laxative PRN - wean off of narcotics as tolerated - po diet ad chris - d/c planning per PMD Subjective Allergies: Coded Allergies: No Known Allergies (Unverified , 07/06/19) Subjective feels ok abd pain better tolerating PO (+) BM Objective Last 24 Hour Vital Signs Date Time Temp Pulse Resp B/P (MAP) Pulse Ox O2 Delivery O2 Flow Rate FiO2 07/10/19 20:42 Room Air 07/10/19 20:21 88 189/112 07/10/19 20:00 98.1 88 20 189/112 (137) 95 07/10/19 16:00 97.5 87 20 111/60 (77) 97 07/10/19 15:10 84 155/75 07/10/19 15:10 155/75 07/10/19 14:15 84 155/75 (101) 07/10/19 12:00 97.7 84 20 185/105 (131) 99 07/10/19 11:44 185/105 07/10/19 09:04 83 157/91 07/10/19 09:00 Room Air 07/10/19 08:00 97.4 83 16 157/91 (113) 99 07/10/19 05:54 178/75 07/10/19 05:54 80 178/75 07/10/19 04:00 97.4 80 19 178/75 (109) 97 07/10/19 00:15 192/110 07/09/19 23:57 99.0 89 18 192/110 (137) 96 07/09/19 21:55 97.2 07/09/19 21:24 92 199/109 07/09/19 21:23 199/109 07/09/19 21:23 92 199/109 Intake and Output 07/09/19 07/10/19 19:00 07:00 Intake Total 920 ml Output Total 3000 ml 600 ml Balance -2080 ml -600 ml Other 920 ml Output Urine Total 600 ml Hemodialysis UF 3000 ml Laboratory Tests 07/10/19 05:35: White Blood Count 3.5L, Red Blood Count 3.26L, Hemoglobin 10.0L, Hematocrit 30.7L, Mean Corpuscular Volume 94, Mean Corpuscular Hemoglobin 30.7, Mean Corpuscular Hemoglobin Concent 32.7, Red Cell Distribution Width 13.6, Platelet Count 161, Mean Platelet Volume 6.1L, Neutrophils (%) (Auto) 58.4, Lymphocytes ( %) (Auto) 27.9, Monocytes (%) (Auto) 7.2, Eosinophils (%) (Auto) 5.1H, Basophils (%) (Auto) 1.5, Sodium Level 129L, Potassium Level 4.1, Chloride Level 94L, Carbon Dioxide Level 30, Anion Gap 5, Blood Urea Nitrogen 34H, Creatinine 8.4H, Estimat Glomerular Filtration Rate 9.3, Glucose Level 461#H, Calcium Level 8.5 07/10/19 09:35: Glucose Level 602#*H 07/10/19 17:00: Glucose Level 693*H Height (Feet): 5 Height (Inches): 11.00 Weight (Pounds): 156 Objective WDWN NCAT supple CTA RRR abd soft ND no edema Alexander Curry MD Jul 10, 2019 21:22
[2019-07-11] VITALS (8 sets, daily range): BP systolic 102–173; BP diastolic 51–101
[2019-07-11] MEDS: HydrALAZINE 25mg tab ORAL PRN (00:48)
[2019-07-11] MEDS: Morphine Sulfate 2mg/ml Inj(IV/IM USE ONLY) IVP PRN ×3 (03:58→14:25)
[2019-07-11] MEDS: DiphenhydrAMINE 50mg/ml Inj IVP PRN ×2 (04:24→14:36)
[2019-07-11] MEDS: Labetalol 200mg tab ORAL SCH ×2 (06:19→14:00)
[2019-07-11] MEDS: NovoLOG Insulin Flexpen SUBQ SCH ×6 (06:20→17:31)
--- NOTE | 2019-07-11 06:32 | General Progress Note ---
Assessment/Plan Status: unchanged Assessment/Plan: Assessment/Plan Status: unchanged Assessment/Plan: Assessment - ill defined diffuse abd pain - resolved - constipation - resolved - ESRD - mild transaminitis -DM Recommendations - laxative PRN - wean off of narcotics as tolerated - po diet ad chris -DM control - d/c planning per PMD Subjective Allergies: Coded Allergies: No Known Allergies (Unverified , 07/06/19) Objective Last 24 Hour Vital Signs Date Time Temp Pulse Resp B/P (MAP) Pulse Ox O2 Delivery O2 Flow Rate FiO2 07/11/19 06:19 73 139/77 07/11/19 06:19 139/77 07/11/19 00:48 173/101 07/11/19 00:00 97.1 80 20 173/101 (125) 98 07/10/19 22:27 83 181/98 07/10/19 22:13 181/98 07/10/19 20:42 Room Air 07/10/19 20:21 88 189/112 07/10/19 20:00 98.1 88 20 189/112 (137) 95 07/10/19 16:00 97.5 87 20 111/60 (77) 97 07/10/19 15:10 84 155/75 07/10/19 15:10 155/75 07/10/19 14:15 84 155/75 (101) 07/10/19 12:00 97.7 84 20 185/105 (131) 99 07/10/19 11:44 185/105 07/10/19 09:04 83 157/91 07/10/19 09:00 Room Air 07/10/19 08:00 97.4 83 16 157/91 (113) 99 Intake and Output 07/10/19 07/11/19 18:59 06:59 Intake Total 600 ml Balance 600 ml Intake Oral 600 ml Laboratory Tests 07/10/19 09:35: Glucose Level 602#*H 07/10/19 17:00: Glucose Level 693*H Height (Feet): 5 Height (Inches): 11.00 Weight (Pounds): 156 General Appearance: alert EENT: normal ENT inspection Neck: supple Cardiovascular: normal rate Respiratory/Chest: lungs clear Abdomen: normal bowel sounds, non tender, soft Extremities: non-tender Alessandro Kaplan MD Jul 11, 2019 06:32
--- NOTE | 2019-07-11 07:11 | General Progress Note ---
Assessment/Plan Problem List: (1) Type 1 diabetes ICD Codes: E10.9 - Type 1 diabetes mellitus without complications SNOMED: 60956919 (2) Hypertensive urgency, malignant ICD Codes: I16.0 - Hypertensive urgency SNOMED: 96548230, 597295692 (3) Hyperglycemia ICD Codes: R73.9 - Hyperglycemia, unspecified SNOMED: 78181097 (4) Renal failure ICD Codes: N19 - Unspecified kidney failure SNOMED: 66723656, 561923422 (5) Abdominal pain ICD Codes: R10.9 - Unspecified abdominal pain SNOMED: 02291329 Status: unchanged Assessment/Plan: continue Levemir 12 units bid continue Novolog 7 units ac tid continue NISS ac / hs Subjective Allergies: Coded Allergies: No Known Allergies (Unverified , 07/06/19) All Systems: reviewed and negative except above Subjective events noted supplemental insulin was given last night for elevated glucose - RN notified me glucose on lower side this morning Item Value Date Time Bedside Blood Glucose 79 mg/dl 07/11/19 0621 Bedside Blood Glucose 84 mg/dl 07/11/19 0250 Bedside Blood Glucose 365 mg/dl H 07/10/19 2231 Bedside Blood Glucose Critically High Result 07/10/19 1737 Bedside Blood Glucose 497 mg/dl H 07/10/19 1152 Bedside Blood Glucose Critically High Result 07/10/19 0937 Bedside Blood Glucose 464 mg/dl H 07/10/19 0638 Objective Last 24 Hour Vital Signs Date Time Temp Pulse Resp B/P (MAP) Pulse Ox O2 Delivery O2 Flow Rate FiO2 07/11/19 06:19 73 139/77 07/11/19 06:19 139/77 07/11/19 04:00 97.1 80 20 151/83 (105) 98 07/11/19 00:48 173/101 07/11/19 00:00 97.1 80 20 173/101 (125) 98 07/10/19 22:27 83 181/98 07/10/19 22:13 181/98 07/10/19 20:42 Room Air 07/10/19 20:21 88 189/112 07/10/19 20:00 98.1 88 20 189/112 (137) 95 07/10/19 16:00 97.5 87 20 111/60 (77) 97 07/10/19 15:10 84 155/75 07/10/19 15:10 155/75 07/10/19 14:15 84 155/75 (101) 07/10/19 12:00 97.7 84 20 185/105 (131) 99 07/10/19 11:44 185/105 07/10/19 09:04 83 157/91 07/10/19 09:00 Room Air 07/10/19 08:00 97.4 83 16 157/91 (113) 99 Intake and Output 07/10/19 07/11/19 18:59 06:59 Intake Total 600 ml 1000 ml Balance 600 ml 1000 ml Intake Oral 600 ml 1000 ml Laboratory Tests 07/10/19 09:35: Glucose Level 602#*H 07/10/19 17:00: Glucose Level 693*H Height (Feet): 5 Height (Inches): 11.00 Weight (Pounds): 156 General Appearance: no apparent distress Neck: normal alignment Cardiovascular: normal rate Respiratory/Chest: lungs clear Abdomen: normal bowel sounds Objective Current Medications Medications (Trade) Dose Ordered Sig/Jo-Ann Route PRN Reason Start Time Stop Time Status Last Admin Dose Admin Acetaminophen (Tylenol) 650 mg Q4H PRN ORAL Mild Pain (Pain Scale 1-3) 07/08/19 18:35 08/07/19 18:34 Barium Sulfate (Readi-Cat 2) 450 ml NOW PRN ORAL Radiology Procedure 07/09/19 08:30 08/08/19 08:26 Clonidine HCl (Catapres Tab) 0.3 mg Q8HR ORAL 07/10/19 14:00 08/08/19 09:29 07/11/19 06:19 Dextrose (Dextrose 50%) 25 ml Q30M PRN IV Hypoglycemia 07/10/19 14:45 08/09/19 14:44 Dextrose (Dextrose 50%) 50 ml Q30M PRN IV Hypoglycemia 07/10/19 14:45 08/09/19 14:44 07/11/19 02:09 Diphenhydramine HCl (Benadryl) 50 mg Q8H PRN IVP Itching 07/08/19 18:35 08/07/19 18:34 07/11/19 04:24 Famotidine (Pepcid) 10 mg DAILY ORAL 07/09/19 09:00 08/06/19 08:59 07/10/19 09:04 Hydralazine HCl (Apresoline) 25 mg Q6HR PRN ORAL For High Blood Pressure 07/10/19 00:15 08/09/19 00:14 07/11/19 00:48 Insulin Aspart (NovoLOG) BEFORE MEALS AND HS SUBQ 07/10/19 16:30 08/09/19 16:29 07/10/19 22:31 Insulin Aspart (NovoLOG) 7 units NOVOTIAC SUBQ 07/10/19 16:50 08/09/19 16:49 07/10/19 17:37 Insulin Detemir (Levemir) 12 units BID SUBQ 07/10/19 17:00 08/09/19 16:59 07/10/19 17:35 Labetalol HCl (Normodyne) 800 mg Q8HR ORAL 07/10/19 14:00 08/05/19 21:59 07/11/19 06:19 Morphine Sulfate (Morphine Sulfate) 1 mg Q4H PRN IVP For Pain 07/08/19 18:36 07/15/19 18:35 07/11/19 03:58 Nifedipine (Procardia XL) 30 mg Q12HR ORAL 07/08/19 21:00 08/07/19 08:59 07/10/19 20:21 Ondansetron HCl (Zofran) 4 mg Q6H PRN IVP Nausea & Vomiting 07/08/19 18:36 08/07/19 18:35 Nino Cintron MD Jul 11, 2019 07:11
[2019-07-11 08:09] LABS: HEMATOCRIT 28.3 % (42.0-52.0); HEMOGLOBIN 9.6 G/DL (14.2-18.0); MEAN CORPUSCULAR VOLUME 91 FL (80-99); PLATELET COUNT 133 K/UL (150-450); RED BLOOD COUNT 3.13 M/UL (4.70-6.10); RED CELL DISTRIBUTION WIDTH 13.1 % (11.6-14.8); WHITE BLOOD COUNT 3.1 K/UL (4.8-10.8)
[2019-07-11 08:29] LABS: ANION GAP 7 mmol/L (5-15); BLOOD UREA NITROGEN 44 mg/dL (7-18); CALCIUM 8.8 MG/DL (8.5-10.1); CARBON DIOXIDE 28 MMOL/L (21-32); CHLORIDE 94 MMOL/L (98-107); CREATININE 9.9 MG/DL (0.55-1.30); POTASSIUM 3.4 MMOL/L (3.5-5.1); SODIUM 129 MMOL/L (136-145)
[2019-07-11] MEDS: Levemir Flexpen SUBQ SCH ×2 (08:44→17:32)
--- NOTE | 2019-07-11 09:32 | General Progress Note ---
Assessment/Plan Problem List: (1) Renal failure ICD Codes: N19 - Unspecified kidney failure SNOMED: 46624969, 015255945 (2) Hypertensive urgency, malignant ICD Codes: I16.0 - Hypertensive urgency SNOMED: 85603905, 436846994 (3) Hyperglycemia ICD Codes: R73.9 - Hyperglycemia, unspecified SNOMED: 94368595 (4) Abdominal pain ICD Codes: R10.9 - Unspecified abdominal pain SNOMED: 39701065 Status: unchanged Assessment/Plan: bp bs pain control dialysis prn cbc bmp am Subjective Constitutional: Reports: weakness Allergies: Coded Allergies: No Known Allergies (Unverified , 07/06/19) All Systems: reviewed and negative except above Subjective sleepy calm Objective Last 24 Hour Vital Signs Date Time Temp Pulse Resp B/P (MAP) Pulse Ox O2 Delivery O2 Flow Rate FiO2 07/11/19 08:45 Room Air 07/11/19 08:23 70 134/84 07/11/19 08:00 97.2 70 17 134/84 (101) 96 07/11/19 06:19 73 139/77 07/11/19 06:19 139/77 07/11/19 06:15 139/79 (99) 07/11/19 04:00 97.1 80 20 151/83 (105) 98 07/11/19 00:48 173/101 07/11/19 00:00 97.1 80 20 173/101 (125) 98 07/10/19 22:27 83 181/98 07/10/19 22:13 181/98 07/10/19 20:42 Room Air 07/10/19 20:21 88 189/112 07/10/19 20:00 98.1 88 20 189/112 (137) 95 07/10/19 16:00 97.5 87 20 111/60 (77) 97 07/10/19 15:10 84 155/75 07/10/19 15:10 155/75 07/10/19 14:15 84 155/75 (101) 07/10/19 12:00 97.7 84 20 185/105 (131) 99 07/10/19 11:44 185/105 Intake and Output 07/10/19 07/11/19 19:00 07:00 Intake Total 600 ml 1000 ml Balance 600 ml 1000 ml Intake Oral 600 ml 1000 ml Laboratory Tests 07/10/19 09:35: Glucose Level 602#*H 07/10/19 17:00: Glucose Level 693*H 07/11/19 07:29: Glucose Level 84#, White Blood Count 3.1L, Red Blood Count 3.13L, Hemoglobin 9.6L, Hematocrit 28.3L, Mean Corpuscular Volume 91, Mean Corpuscular Hemoglobin 30.7, Mean Corpuscular Hemoglobin Concent 33.9, Red Cell Distribution Width 13.1 , Platelet Count 133L, Mean Platelet Volume 5.7L, Neutrophils (%) (Auto) , Lymphocytes (%) (Auto) , Monocytes (%) (Auto) , Eosinophils (%) (Auto) , Basophils (%) (Auto) , Neutrophils % (Manual) [Pending], Lymphocytes % (Manual) [Pending], Platelet Estimate [Pending], Platelet Morphology [Pending], Sodium Level 129L, Potassium Level 3.4L, Chloride Level 94L, Carbon Dioxide Level 28, Anion Gap 7, Blood Urea Nitrogen 44H, Creatinine 9.9H, Estimat Glomerular Filtration Rate 7.8, Calcium Level 8.8 Height (Feet): 5 Height (Inches): 11.00 Weight (Pounds): 156 General Appearance: lethargic EENT: normal ENT inspection Neck: normal alignment Cardiovascular: normal peripheral pulses, normal rate, regular rhythm Respiratory/Chest: chest wall non-tender, lungs clear, normal breath sounds Abdomen: normal bowel sounds, non tender, soft Extremities: normal inspection Edema: no edema noted Arm (L), no edema noted Arm (R), no edema noted Leg (L), no edema noted Leg (R), no edema noted Pedal (L), no edema noted Pedal (R), no edema noted Generalized Neurologic: motor weakness Skin: normal pigmentation, warm/dry Maikel Little DO Jul 11, 2019 09:32
--- NOTE | 2019-07-11 13:33 | Nephrology Progress Note ---
Assessment/Plan Status: unchanged Assessment/Plan: A/P 1) ESRD- TTS - 3-4 L UF today then DC home 2) DM- insulin therapy per Endo. Much improved 3) HTN Urgency- adjusted po meds and improved 4) Abd Pain- per GI mgmt. - resolved and eating better 5) DVT prophylaxsis with SCDs Patient has declined current BP regimen for home but has accepted insulin Rx Subjective Allergies: Coded Allergies: No Known Allergies (Unverified , 07/06/19) Subjective Abd pain much improved and eating well Objective Last 24 Hour Vital Signs Date Time Temp Pulse Resp B/P (MAP) Pulse Ox O2 Delivery O2 Flow Rate FiO2 07/11/19 08:45 Room Air 07/11/19 08:23 70 134/84 07/11/19 08:00 97.2 70 17 134/84 (101) 96 07/11/19 06:19 73 139/77 07/11/19 06:19 139/77 07/11/19 06:15 139/79 (99) 07/11/19 04:00 97.1 80 20 151/83 (105) 98 07/11/19 00:48 173/101 07/11/19 00:00 97.1 80 20 173/101 (125) 98 07/10/19 22:27 83 181/98 07/10/19 22:13 181/98 07/10/19 20:42 Room Air 07/10/19 20:21 88 189/112 07/10/19 20:00 98.1 88 20 189/112 (137) 95 07/10/19 16:00 97.5 87 20 111/60 (77) 97 07/10/19 15:10 84 155/75 07/10/19 15:10 155/75 07/10/19 14:15 84 155/75 (101) Intake and Output 07/10/19 07/11/19 19:00 07:00 Intake Total 600 ml 1000 ml Balance 600 ml 1000 ml Intake Oral 600 ml 1000 ml Laboratory Tests 07/10/19 17:00: Glucose Level 693*H 07/11/19 07:29: Glucose Level 84#, White Blood Count 3.1L, Red Blood Count 3.13L, Hemoglobin 9.6L, Hematocrit 28.3L, Mean Corpuscular Volume 91, Mean Corpuscular Hemoglobin 30.7, Mean Corpuscular Hemoglobin Concent 33.9, Red Cell Distribution Width 13.1 , Platelet Count 133L, Mean Platelet Volume 5.7L, Neutrophils (%) (Auto) , Lymphocytes (%) (Auto) , Monocytes (%) (Auto) , Eosinophils (%) (Auto) , Basophils (%) (Auto) , Differential Total Cells Counted 100, Neutrophils % ( Manual) 50, Lymphocytes % (Manual) 34, Monocytes % (Manual) 10, Eosinophils % ( Manual) 5H, Basophils % (Manual) 1, Band Neutrophils 0, Platelet Estimate DecreasedL, Platelet Morphology Normal, Hypochromasia 2+, Anisocytosis 1+, Spherocytes 1+, Sodium Level 129L, Potassium Level 3.4L, Chloride Level 94L, Carbon Dioxide Level 28, Anion Gap 7, Blood Urea Nitrogen 44H, Creatinine 9.9H, Estimat Glomerular Filtration Rate 7.8, Calcium Level 8.8 Height (Feet): 5 Height (Inches): 11.00 Weight (Pounds): 156 General Appearance: no apparent distress, alert EENT: normal ENT inspection Neck: normal alignment, supple Cardiovascular: normal rate, regular rhythm Respiratory/Chest: lungs clear, normal breath sounds Abdomen: non tender, soft Edema: no edema noted Arm (L), no edema noted Arm (R), no edema noted Leg (L), no edema noted Leg (R), no edema noted Pedal (L), no edema noted Pedal (R), no edema noted Generalized Arsalan Rhodes MD Jul 11, 2019 13:33
--- NOTE | 2019-07-11 13:34 | Discharge Instructions ---
Discharge Instructions Discharge Instructions Services at Discharge: day care Diet: 2 GM sodium (low sodium), diabetic calorie control Follow Up Orders Follow up PCP 1 week For Congestive Heart Failure Reminder Report to your physician any weight gain of 5 pounds or more in one week. Arsalan Rhodes MD Jul 11, 2019 13:34
--- NOTE | 2019-07-12 20:01 | Discharge Summary ---
Discharge Summary Discharge Summary _ DATE OF ADMISSION: 07/06/2019 DATE OF DISCHARGE: 07/11/2019 DISCHARGED BY: Dr. Little REASON FOR ADMISSION: 29 years old male with past medical history of hypertension, diabetes mellitus, end-stage renal disease on hemodialysis, presented to emergency department for evaluation of abdominal pain. Patient reported not feeling well for the last few days. He reported nausea, nonbloody nonbilious vomiting, but no diarrhea. Patient reported being noncompliant with his anti-glycemic regimen. Vital signs revealed severe hypertension 237/137. Laboratory work-up revealed no leukocytosis ,hemoglobin 12.2 ,hematocrit 35.7 , platelet count 183. Sodium 132, potassium 4.0. Anion gap 13. BUN 32, creatinine 8.7. Glucose 541. Calcium 8.7. AST 79 ALT 69. Total CK 290. Lipase 75. EKG reveals sinus rhythm, no acute ischemic changes. Chest x-ray revealed no acute cardiopulmonary pathology. Patient subsequently admitted for further management. CONSULTANTS: GI specialist Dr. Curry Student Outreach Coordinator Dr.[employer] Mechanical Design Engineer Dr. Cintron [facility]RSE: Patient admitted and started on hemodialysis as per information broker orders with close monitoring of volumes, renal parameters and electrolytes. Blood pressure was managed with multiply antihypertensive medications, including labetalol, Procardia and hydralazine. Antihypertensive regimen subsequently was optimized to keep blood pressure under control. Blood pressure eventually stabilized. Patient started on long-acting Levemir along with short acting pre-meal insulin and sliding scale of insulin as needed as per compress machine operator management. Diabetic teaching provided. Patient was advised on compliance with anti-glycemic medication regimen at home. Blood sugar stabilized. DVT and GI prophylaxis provided. GI specialist followed for evaluation of abdominal pain. CT scan of abdomen and pelvis revealed evidence of anasarca, with diffuse edema of the subcutaneous, mesenteric,retroperitoneal fat, no free intraperitoneal fluid, trace bilateral pleural effusions, trace pericardial effusion. No evidence of colonic diverticulosis or diverticulitis. No free intraperitoneal gas. No small bowel dilatation. The distal esophagus, stomach, duodenum were unremarkable. The liver, gallbladder, pancreas, spleen, adrenals, kidneys were unremarkable. Thick-walled bladder, could indicate cystitis Basilar pulmonary parenchymal atelectasis . Bowel regimen instituted. Constipation resolved Abdominal exam was benign. Patient noted to have mild transaminitis. LFT were trending down. AST from 79 down to 42 and ALT remained stable. Total bilirubin remains stable. Diet provided as tolerated. Patient was able to tolerate diet. Symptomatic treatment provided. Pain management was addressed as needed. Antiemetic provided as needed. Patient clinically stabilized and was ready for discharge home. FINAL DIAGNOSES: Hypertensive urgency, malignant -resolved Hyperglycemia -resolved Diabetes mellitus type 1 End-stage renal disease, on hemodialysis Abdominal pain- resolved Constipation- resolved Mild transaminitis -improved DISCHARGE MEDICATIONS: See Medication Reconciliation list. DISCHARGE INSTRUCTIONS: Patient was discharged home. Follow-up with primary care provider in 1 week. Follow-up with outpatient hemodialysis. Reinforced compliance with medication regimen. I have been assigned to dictate discharge summary for this account. I was not involved in the patient's management. Nasima Limon NP Jul 12, 2019 20:01
== END 2019-07-11 20:40 | disposition home or self-care (01) | DRG 637 ==
LOC: EDBD 18:26 → EMR 19:29 → 2W 20:20 → EDBEDREQ 20:28 → EDBEDREQSVC 20:28 → EDBEDREQ 20:45 → 2E 07-07 14:02 → 4E 07-08 18:23
DX: E10.65 Type 1 diabetes mellitus with hyperglycemia (principal); N18.6 End stage renal disease; N25.81 Secondary hyperparathyroidism of renal origin; I12.0 Hypertensive chronic kidney disease with stage 5 chronic kidney disease or end stage renal disease; I16.0 Hypertensive urgency; D63.1 Anemia in chronic kidney disease; E10.22 Type 1 diabetes mellitus with diabetic chronic kidney disease; Z99.2 Dependence on renal dialysis; Z79.4 Long term (current) use of insulin; Z91.14 Patient's other noncompliance with medication regimen; K59.00 Constipation, unspecified; R74.0 Nonspecific elevation of levels of transaminase and lactic acid dehydrogenase [LDH]
CPT/HCPCS: 36415; 71045; 74176; 80048; 80053; 82270; 82550; 82947; 82962; 83690; 85007; 85025; 87081; 87340; 93005; 96361; 96374; 96375; 96376; 99291; J1815; J2405; S5561

== ENCOUNTER 2019-11-17 01:38 | Emergency (ER) | payer MEDICARE, OTHER ==
[~2019-11-17] VITALS: Ht 182.9 cm; Wt 77.1 kg
[~2019-11-17 01:38] MED LIST: CATAPRES0.2 MG ORAL; HUMALOG100 UNIT/4 SUBQ; HYDRALAZINE HCL25 M1 ORAL; LABETALOL HCL100 MG ORAL; LANTUS SOL100 UNIT/1 SUBQ; NIFEDIPINE ER30 M2 ORAL
[2019-11-17 01:50] VITALS: BP 96/53
--- NOTE | 2019-11-17 01:50 | NUR ---
ED Nurse Note: Pt biba from home Co hypotension d/t pt taking 2 labetolol at home as prescribed. Pt VS improved after ambulance administered 500ml NS in left EJ started in field. EJ patent intact. Blood drawn and sent to lab. ERMD at bedside. Pt has fistula on right upper arm. Pt has dialysis T/Th/Sat; pt scheduled for dialysis tomorrow.
--- NOTE | 2019-11-17 01:54 | Emergency Room Report ---
History of Present Illness General Chief Complaint: Hypertension Source: Patient, Medical Record, EMS Present Illness HPI This is a 29-year-old male with a history of diabetes, high blood pressure, and renal disease on to hemodialysis. He is hemodialysis days are Saturday, , and Saturday. He presents with chief complaint of hypotension. He said his blood pressure at home was 208/112. He took all of his blood pressure medication including extra labetalol. He became diaphoretic and unresponsive and weak. Mom called 911. Patient denies suicidal thoughts homicidal thought. He also has history of chronic pain for which he takes Vicodin. He denies taking extra Vicodin's. He has no nausea no vomiting. No fever or chills. EMS his blood pressure was systolic in the 70s. They gave him 500 mL of normal saline. Patient said he felt better now. He is asking for pain medication for his chronic back pain. Allergies: Coded Allergies: No Known Allergies (Unverified , 07/06/19) COVID-19 Screening Contact w/high risk pt: No Recent Travel to affected area: No Experienced COVID-19 symptoms?: No Patient History Past Medical History: see triage record, old chart reviewed, DM, HTN, renal disease, dialysis Past Surgical History: other Pertinent Family History: none Social History: Denies: smoking Immunizations: other Reviewed Nursing Documentation: PMH: Agreed; PSxH: Agreed Nursing Documentation-PMH Past Medical History: No History, Except For Hx Cardiac Problems: No Hx Hypertension: Yes Hx Diabetes: Yes Hx Cancer: No Hx Gastrointestinal Problems: No Hx Dialysis: Yes - TTHS Hx Neurological Problems: No Review of Systems Constitutional: Reports: weakness Eye: Denies: eye pain, blurred vision ENT: Denies: ear pain, nose congestion, throat swelling Respiratory: Denies: cough, shortness of breath Cardiovascular: Denies: chest pain, palpitations Gastrointestinal: Denies: abdominal pain, diarrhea, nausea, vomiting Musculoskeletal: Reports: back pain; Denies: joint pain Skin: Denies: rash Neurological: Denies: headache, numbness Endocrine: Denies: increased thirst, increased urine Hematologic/Lymphatic: Denies: easy bruising All Other Systems: negative except mentioned in HPI Physical Exam Vital Signs Date Time Temp Pulse Resp B/P (MAP) Pulse Ox O2 Delivery O2 Flow Rate FiO2 11/17/19 01:40 97.5 79 14 104/73 (83) 99 Room Air Vitals are normal. Repeat blood pressure however showed systolic 88. Sp02 EP Interpretation: reviewed, normal General Appearance: well appearing, no apparent distress, alert Head: normocephalic, atraumatic Eyes: bilateral eye PERRL, bilateral eye EOMI ENT: hearing grossly normal, normal pharynx Neck: full range of motion, supple, no meningismus Respiratory: chest non-tender, lungs clear, normal breath sounds Cardiovascular #1: regular rate, rhythm, no murmur Gastrointestinal: normal bowel sounds, non tender, no mass, no organomegaly, no bruit, non-distended Musculoskeletal: back normal, normal range of motion Psychiatric: mood/affect normal Medical Decision Making Diagnostic Impression: Primary Impression: Hypotension Qualified Codes: I95.9 - Hypotension, unspecified ER Course Patient presents with hypotension because he took too much of his blood pressure medication. Blood pressure improved with IV fluid and observation. No evidence of ACS, PE, dissection to name a few. He scheduled for dialysis later on today. I also suspect that he has been taking too much of his Vicodin and also because of his back pain. No evidence of cauda equina syndrome, spinal epidural abscess or neoplastic process. EKG Diagnostic Results Rate: normal Rhythm: NSR ST Segments: no acute changes Rhythm Strip Diag. Results EP Interpretation: yes Rate: 79 Rhythm: NSR, no PVC's, no ectopy Chest X-Ray Diagnostic Results Chest X-Ray Diagnostic Results : Chest X-Ray Ordered: Yes # of Views/Limited/Complete: 1 View Indication: Chest Pain EP Interpretation: Yes Interpretation: no consolidation, no effusion, no pneumothorax, no acute cardiopulmonary disease, other - Cardiomegaly Impression: Other - Cardiomegaly Electronically Signed by: Oscar Armando MD Last Vital Signs Date Time Temp Pulse Resp B/P (MAP) Pulse Ox O2 Delivery O2 Flow Rate FiO2 11/17/19 01:40 97.5 79 14 104/73 (83) 99 Room Air Status: improved Disposition: HOME, SELF-CARE Condition: Stable Additional Instructions: Go to dialysis as scheduled. Take your medication as indicated. Follow-up with your doctor in 7 days. Return if worse. Oscar Armando MD Nov 17, 2019 01:54
--- NOTE | 2019-11-17 02:00 | NUR ---
ED Nurse Note: Xray at bedside
[2019-11-17 02:16] LABS: BASOPHILS % (AUTO) 0.8 % (0.0-2.0); EOSINOPHILS % (AUTO) 1.6 % (0.0-3.0); HEMATOCRIT 26.2 % (42.0-52.0); HEMOGLOBIN 8.7 G/DL (14.2-18.0); LYMPHOCYTES % (AUTO) 15.7 % (20.0-45.0); MEAN CORPUSCULAR VOLUME 92 FL (80-99); MONOCYTES % (AUTO) 4.8 % (1.0-10.0); NEUTROPHILS % (AUTO) 77.1 % (45.0-75.0); PLATELET COUNT 157 K/UL (150-450); RED BLOOD COUNT 2.86 M/UL (4.70-6.10); RED CELL DISTRIBUTION WIDTH 15.8 % (11.6-14.8); WHITE BLOOD COUNT 5.4 K/UL (4.8-10.8)
[2019-11-17 02:20] LABS: ANION GAP 13 mmol/L (5-15); BLOOD UREA NITROGEN 31 mg/dL (7-18); CALCIUM 8.4 MG/DL (8.5-10.1); CARBON DIOXIDE 27 MMOL/L (21-32); CHLORIDE 102 MMOL/L (98-107); CREATININE 5.7 MG/DL (0.55-1.30); SODIUM 142 MMOL/L (136-145)
[2019-11-17 02:24] LABS: ALANINE AMINOTRANSFERASE 79 U/L (12-78); ALBUMIN 3.3 G/DL (3.4-5.0); ALKALINE PHOSPHATASE 250 U/L (46-116); ASPARTATE AMINO TRANSFERASE 107 U/L (15-37); BILIRUBIN,TOTAL 0.4 MG/DL (0.2-1.0)
--- NOTE | 2019-11-17 02:42 | NUR ---
ED Nurse Note: IV fluids running. NO adverse reactions noted.
[2019-11-17 03:00] VITALS: BP 102/63
[2019-11-17] MEDS ORDERED: HYDROcodone/Acetamin 5/325 tab ORAL ONE (04:15)
--- NOTE | 2019-11-17 04:15 | NUR ---
ED Nurse Note: ermd AT BEDSIDE
--- NOTE | 2019-11-17 04:31 | NUR ---
ER DISCHARGE NOTE: Patient is cleared to be discharged home per ERMD, pt is aox4, on room air, with stable vital signs. pt was given dc instructions, pt was able to verbalize understanding, pt id band and iv site removed without complications. pt is able to ambulate with steady gait. pt took all belongings.
[2019-11-17 04:32] VITALS: BP 116/66
--- NOTE | 2019-11-17 10:51 | Diagnostic Imaging Report ---
Indication: Shortness of breath and cough for one day Technique: One view of the chest Comparison: 09/05/2018 Findings: Less optimal inspiration. This results in some crowding of bronchovascular markings. The heart is borderline enlarged. No definite acute infiltrates, effusions, or congestion. Impression: No definite acute process Borderline cardiomegaly
== END 2019-11-17 04:31 | disposition home or self-care (01) ==
LOC: EDBD 01:38 → EMR 01:51
DX: I95.9 Hypotension, unspecified (principal); E11.9 Type 2 diabetes mellitus without complications; I12.9 Hypertensive chronic kidney disease with stage 1 through stage 4 chronic kidney disease, or unspecified chronic kidney disease; E11.22 Type 2 diabetes mellitus with diabetic chronic kidney disease; N18.9 Chronic kidney disease, unspecified; I51.7 Cardiomegaly
CPT/HCPCS: 36415; 71045; 80053; 84484; 85025; 93005; 99284; J7040

== ENCOUNTER 2020-02-08 08:43 | Inpatient (IN) | payer MEDICARE, OTHER ==
[~2020-02-08] VITALS: Ht 175.3 cm; Wt 66.7 kg
--- NOTE | 2020-02-08 08:49 | Emergency Room Report ---
History of Present Illness General Source: Patient, EMS Present Illness HPI Patient is a 29-year-old male brought in by EMS after increased chest and abdominal pain. Patient reportedly had increased nausea without any vomiting. Had prior history of type 1 diabetes as well as end-stage renal disease. He is currently on dialysis and normally goes Saturday. Patient's blood sugar was slightly greater than 200 by EMS.Patient is also HIV positive.Reports having pleuritic type chest discomfort for the past 3 to 4 days. Associated nausea and vomiting 5-6 times. Denies any hematemesis. States this is similar to when he has had diabetic ketoacidosis in the past. Allergies: Coded Allergies: ASPIRIN (Unverified Allergy, Unknown, 02/08/20) Patient History Past Medical History: see triage record, DM, HTN, renal disease, dialysis Reviewed Nursing Documentation: PMH: Agreed; PSxH: Agreed Review of Systems All Other Systems: negative except mentioned in HPI Physical Exam Sp02 EP Interpretation: reviewed, normal General Appearance: alert, GCS 15, Chronically Ill Head: atraumatic ENT: normal ENT inspection, hearing grossly normal, normal voice Neck: normal inspection, full range of motion, supple, no bony tend Respiratory: normal inspection, lungs clear, normal breath sounds, no respiratory distress, no retraction, no wheezing Cardiovascular #1: regular rate, rhythm, no edema Gastrointestinal: normal inspection, normal bowel sounds, non tender, soft, no guarding, no hernia Genitourinary: no CVA tenderness Musculoskeletal: normal inspection, back normal, normal range of motion Neurologic: alert, motor strength/tone normal, job training specialist III-XII nml as tested, responsive, speech normal, normal inspection Psychiatric: normal inspection, judgement/insight normal, mood/affect normal Procedures Critical Care Time Critical Care Time Patient had a critical medical condition which untreated could potentially result in life or limb threatening injury. Total critical care time excluding procedures approximately 45 minutes. Medical Decision Making Diagnostic Impression: Primary Impression: Abdominal pain Additional Impressions: Hyperglycemia Type 1 diabetes ER Course Patient presented for chest pain. Differential diagnosis include was not limited to myocardial infarction, pneumonia, coronavirus infection, diabetic ketoacidosis among others. Because of complexity of patient's case laboratory tests and imaging studies were ordered.Patient's initial blood sugar was 370. Patient reports being compliant with his insulin. Patient will likely require hospitalization due to mild insulin drip was subsequently discontinued after laboratory testing showed adequate bicarb. Diabetic ketoacidosis. Patient started on insulin drip due to hyperglycemia. He was given IV fluids due to some volume depletion. Dr. Mays was contacted for for inpatient management EKG Diagnostic Results Rate: normal Rhythm: NSR ST Segments: no acute changes Status: improved Disposition: ADMITTED INPATIENT Condition: Serious Scripts Tramadol Hcl* (ULTRAM*) 50 Mg Tablet 50 MG ORAL Q6H PRN PRN for 30 Days, #20 TAB 0 Refills Prov: Phillip,Izabela DO 02/11/20 Labetalol Hcl* (NORMODYNE*) 100 Mg Tablet 200 MG ORAL EVERY 12 HOURS for 30 Days, #120 TAB Prov: Linn Fishereka DO 02/11/20 Hydralazine Hcl* (HYDRALAZINE HCL*) 25 Mg Tablet 50 MG ORAL EVERY 8 HOURS for 30 Days, #180 TAB 0 Refills Prov: Linn Fishereka DO 02/11/20 Clonidine Hcl* (CATAPRES*) 0.2 Mg Tablet 0.2 MG ORAL Q6HR for 30 Days, #120 TAB 0 Refills Prov: Linn Fishereka DO 02/11/20 Nifedipine Er* (NIFEDIPINE ER*) 30 Mg Tab.er.24 30 MG ORAL DAILY for 30 Days, #30 TAB Prov: Linn Fishereka DO 02/11/20 Insulin Glargine (LANTUS) 100 Unit/1 Ml Insuln.pen 13 UNIT SUBQ BEDTIME for 30 Days, #1 EA 0 Refills Prov: Izabela Fisher DO 02/11/20 Insulin Lispro (HUMALOG) 100 Unit/1 Ml Cartridge 4 UNITS SUBQ TID with meals for 30 Days, #1 UNITS 0 Refills Prov: Izabela Fisher DO 02/11/20 Daniele Gotti MD Feb 08, 2020 08:48
[2020-02-08 08:54] VITALS: BP 158/95
[2020-02-08] MEDS ORDERED: Insulin Reg 100 units Premix 100 ML IV SCH (09:00)
[2020-02-08 09:18] LABS: EOSINOPHILS % (AUTO) 0.6 % (0.0-3.0); HEMATOCRIT 36.7 % (42.0-52.0); HEMOGLOBIN 11.5 G/DL (14.2-18.0); LYMPHOCYTES % (AUTO) 16.8 % (20.0-45.0); MEAN CORPUSCULAR VOLUME 97 FL (80-99); MONOCYTES % (AUTO) 7.1 % (1.0-10.0); NEUTROPHILS % (AUTO) 73.5 % (45.0-75.0); PLATELET COUNT 145 K/UL (150-450); RED CELL DISTRIBUTION WIDTH 13.8 % (11.6-14.8)
[2020-02-08] MEDS ORDERED: DiphenhydrAMINE 50mg/ml Inj IVP ONE (09:30)
[2020-02-08 09:31] LABS: ANION GAP 19 mmol/L (5-15); BLOOD UREA NITROGEN 13 mg/dL (7-18); CALCIUM 8.8 MG/DL (8.5-10.1); CARBON DIOXIDE 22 MMOL/L (21-32); CHLORIDE 90 MMOL/L (98-107); CREATININE 4.8 MG/DL (0.55-1.30); POTASSIUM 3.2 MMOL/L (3.5-5.1); SODIUM 131 MMOL/L (136-145)
[2020-02-08 09:36] LABS: ALANINE AMINOTRANSFERASE 22 U/L (12-78); ALBUMIN 3.7 G/DL (3.4-5.0); ALBUMIN/GLOBULIN RATIO 1.1 (1.0-2.7); ALKALINE PHOSPHATASE 75 U/L (46-116); ASPARTATE AMINO TRANSFERASE 32 U/L (15-37); BILIRUBIN,TOTAL 0.6 MG/DL (0.2-1.0)
[2020-02-08] MEDS ORDERED: Acetaminophen 500mg (ES) tab ORAL ONE (10:30)
[2020-02-08 10:54] VITALS: BP 159/91
--- NOTE | 2020-02-08 11:27 | Diagnostic Imaging Report ---
Procedure: XRAY Chest 1v Reason for study: Reason For Exam: SOB Comparison films: 11/17/2019. FINDINGS: A single one view chest is obtained. Vascularity is normal. The lung pineda are clear bilaterally. Cardiac and mediastinal silhouette are within normal limits. CP angles are sharp. The bony thorax appear unremarkable. IMPRESSION: NO ACUTE CARDIOPULMONARY DISEASE.
[2020-02-08] MEDS ORDERED: Morphine Sulfate 4mg/ml Inj (IV USE ONLY) IVP ONE (11:45)
[2020-02-08 13:00] VITALS: BP 148/90
--- NOTE | 2020-02-08 15:25 | History and Physical ---
History of Present Illness General Date patient seen: Feb 08, 2020 Time patient seen: 15:31 Reason for Hospitalization: mild DKA, r/o ACS Present Illness HPI 29y/o male with DM1, ESRD on HD who presents with chest pain, abd pain, nausea/ vomiting. Pt states his BG has been running high and today it was 300s prompting him to come ot ER. He c/o chest pain, abd pain, nausea/vomiting which are similar to his prior DKA symptoms but milder. Denies f/c, SOB. Sates he is complaint with diabetic diet and insulini. In ED, pt afebrile, hypertensive to 150s/90, HR 90s, O2 sat 98% on RA. Labs showed BG 389, bicarb 22, AG 19.Urine acetone level positive, small. Pt stared on insulin gtt. BG improved to 160s, bicarb 27, AG 12. Insulin gt stopped. Allergies: Coded Allergies: ASPIRIN (Unverified Allergy, Unknown, 02/08/20) COVID-19 Screening Contact w/high risk pt: No Recent Travel to affected area: No Experienced COVID-19 symptoms?: No Medication History Scheduled Clonidine Hcl* (Catapres*), 0.2 MG ORAL Q6HR, (Reported) Hydralazine Hcl* (Hydralazine Hcl*), 25 MG ORAL EVERY 8 HOURS, (Reported) Insulin Glargine (Lantus), 0 SUBQ BEDTIME, (Reported) Labetalol Hcl* (Normodyne*), 100 MG ORAL EVERY 12 HOURS, (Reported) Nifedipine Er* (Nifedipine Er*), 30 MG ORAL DAILY, (Reported) Miscellaneous Medications Insulin Lispro (Humalog), 0 SUBQ, (Reported) Patient History Healthcare decision maker Resuscitation status Advanced Directive on File Review of Systems ROS Narrative CONSTITUTIONAL: No weight loss, fever, chills, weakness or fatigue. HEENT: Eyes: No visual loss, blurred vision, double vision or yellow sclerae. Ears, Nose, Throat: No hearing loss, sneezing, congestion, runny nose or sore throat. SKIN: No rash or itching. CARDIOVASCULAR: +chest pain, chest pressure or chest discomfort. No palpitations or edema. RESPIRATORY: No shortness of breath, cough or sputum. GASTROINTESTINAL: No anorexia, +nausea, vomiting, no diarrhea. +No abdominal pain NEUROLOGICAL: No headache, dizziness, syncope, paralysis, ataxia, numbness or tingling in the extremities. No change in bowel or bladder control. MUSCULOSKELETAL: No muscle, back pain, joint pain or stiffness. HEMATOLOGIC: No anemia, bleeding or bruising. LYMPHATICS: No enlarged nodes. No history of splenectomy. PSYCHIATRIC: No history of depression or anxiety. ENDOCRINOLOGIC: No reports of sweating, cold or heat intolerance. No polyuria or polydipsia. ALLERGIES: No history of asthma, hives, eczema or rhinitis. Physical Exam Physical Exam Narrative General: alert, cooperative, no distress, appears stated age Head: normocephalic, without obvious abnormality, atraumatic Eyes: conjunctivae/corneas clear. PERRL, EOM's intact Throat: lips, mucosa, and tongue normal. MMM Neck: supple, symmetrical, trachea midline, and no JVD Lungs: clear to auscultation bilaterally Heart: regular rate and rhythm, S1, S2 normal, no murmur, click, rub or gallop Abdomen: soft, non-tender, non-distended, bowel sounds normal; no masses or organomegaly Extremities: extremities normal, atraumatic, no cyanosis or edema Pulses: 2+ and symmetric Skin: skin color, texture, turgor normal; no rashes or lesions Neurologic: grossly normal, no focal deficits Last 24 Hour Vital Signs Date Time Temp Pulse Resp B/P (MAP) Pulse Ox O2 Delivery O2 Flow Rate FiO2 02/08/20 14:24 Room Air 02/08/20 13:56 98.0 85 16 151/90 100 Room Air 02/08/20 13:00 98.2 87 18 148/90 97 Room Air 02/08/20 12:21 97.5 02/08/20 10:54 97.5 90 15 159/91 100 Room Air 02/08/20 08:54 97.5 78 16 158/95 98 Room Air 02/08/20 08:54 90 18 Room Air 02/08/20 08:44 97.5 90 18 158/95 (116) 98 Room Air Laboratory Tests Test 02/08/20 09:00 White Blood Count 4.0 K/UL (4.8-10.8) L Red Blood Count 3.80 M/UL (4.70-6.10) L Hemoglobin 11.5 G/DL (14.2-18.0) L Hematocrit 36.7 % (42.0-52.0) L Mean Corpuscular Volume 97 FL (80-99) Mean Corpuscular Hemoglobin 30.3 PG (27.0-31.0) Mean Corpuscular Hemoglobin Concent 31.3 G/DL (32.0-36.0) L Red Cell Distribution Width 13.8 % (11.6-14.8) Platelet Count 145 K/UL (150-450) L Mean Platelet Volume 7.8 FL (6.5-10.1) Neutrophils (%) (Auto) 73.5 % (45.0-75.0) Lymphocytes (%) (Auto) 16.8 % (20.0-45.0) L Monocytes (%) (Auto) 7.1 % (1.0-10.0) Eosinophils (%) (Auto) 0.6 % (0.0-3.0) Basophils (%) (Auto) 2.0 % (0.0-2.0) Sodium Level 131 MMOL/L (136-145) L Potassium Level 3.2 MMOL/L (3.5-5.1) L Chloride Level 90 MMOL/L (98-107) L Carbon Dioxide Level 22 MMOL/L (21-32) Anion Gap 19 mmol/L (5-15) H Blood Urea Nitrogen 13 mg/dL (7-18) Creatinine 4.8 MG/DL (0.55-1.30) H Estimat Glomerular Filtration Rate 17.8 mL/min (>60) Glucose Level 389 MG/DL (74-106) H Calcium Level 8.8 MG/DL (8.5-10.1) Magnesium Level 2.0 MG/DL (1.8-2.4) Total Bilirubin 0.6 MG/DL (0.2-1.0) Aspartate Amino Transf (AST/SGOT) 32 U/L (15-37) Alanine Aminotransferase (ALT/SGPT) 22 U/L (12-78) Alkaline Phosphatase 75 U/L (46-116) Total Protein 7.2 G/DL (6.4-8.2) Albumin 3.7 G/DL (3.4-5.0) Globulin 3.5 g/dL Albumin/Globulin Ratio 1.1 (1.0-2.7) Lipase 55 U/L (73-393) L Acetone Level Positive-small (NEGATIVE) Microbiology Date/Time Source Procedure Growth Status 02/08/20 12:45 Rectum Received Height (Feet): 5 Height (Inches): 9.00 Weight (Pounds): 144 Medications Current Medications Medications (Trade) Dose Ordered Sig/Jo-Ann Route PRN Reason Start Time Stop Time Status Last Admin Dose Admin Clonidine HCl (Catapres tab) 0.2 mg Q6HR ORAL 02/08/20 18:00 05/08/20 17:59 Dextrose (Dextrose 50%) 25 ml Q30M PRN IV Hypoglycemia 02/08/20 14:45 05/08/20 14:44 Dextrose (Dextrose 50%) 50 ml Q30M PRN IV Hypoglycemia 02/08/20 14:45 05/08/20 14:44 Diphenhydramine HCl (Benadryl) 25 mg Q6H PRN IVP Itching 02/08/20 15:00 03/09/20 14:59 Hydralazine HCl (Apresoline) 25 mg EVERY 8 HOURS ORAL 02/08/20 22:00 05/08/20 21:59 Insulin Aspart (NovoLOG) BEFORE MEALS AND HS SUBQ 02/08/20 16:30 05/08/20 16:29 Labetalol HCl (Normodyne) 100 mg EVERY 12 HOURS ORAL 02/08/20 21:00 03/09/20 20:59 Nifedipine (Procardia XL) 30 mg DAILY ORAL 02/09/20 09:00 03/10/20 08:59 Potassium Chloride (K-Dur) 20 meq ONCE ORAL 02/08/20 14:45 02/08/20 16:00 Assessment/Plan Status: stable Assessment/Plan: 29y/o male with DM1, ESRD on HD who presents with chest pain, abd pain, nausea/ vomiting, admitted for mild DKA and for r/o ACS. # Mild DKA- BG 380s on admi, AG 19, bicarb 22 # Anion gap metabolic acidosis # DM type 1 - s/p insulin gtt in ED w/ improvement in BG, bicarb and AG - SSI - Levemir 13 units daily - Diabetic diet - Check A1C - Consider endo eval # Atypical chest pain - Cardiology consulted - Trend trop - Check TTE # ESRD on HD - Renal consulted - HD per renal - Trend BMP # Anemia in ESRD - Trend CBC DVT Prophylaxis: SCD, HSQ Code Status: Full Hospital Classification Declaration: Based on this initial evaluation, and depending on the patient's clinical course, I anticipate that this patient will require hospitalization for 1-2 days for mild DKA, r/o ACS, and close respiratory/hemodynamic monitoring. Disposition: Once the patient is stable to leave the hospital, I anticipate the patient will likely be discharged to the following environment: home I spent 70 minutes on this patient's case, and 35 minutes were dedicated to counseling and/or care coordination. Discussed with patient/family, nursing staff, cardiology, renal regarding clinical status, treatment course, and disposition planning. Time of note may not reflect time of encounter. Myron Hudson M.D. Feb 08, 2020 15:25
[2020-02-08 16:00] VITALS: BP 158/97
[2020-02-08] MEDS ORDERED: traMADol 50mg tab ORAL PRN (16:30)
[2020-02-08] MEDS: NovoLOG Insulin Flexpen SUBQ SCH ×2 (16:30→20:54)
[2020-02-08] MEDS: DiphenhydrAMINE 50mg/ml Inj IVP PRN ×2 (16:56→23:35)
[2020-02-08 17:36] LABS: ANION GAP 12 mmol/L (5-15); BLOOD UREA NITROGEN 14 mg/dL (7-18); CALCIUM 8.8 MG/DL (8.5-10.1); CARBON DIOXIDE 27 MMOL/L (21-32); CHLORIDE 95 MMOL/L (98-107); CREATININE 5.2 MG/DL (0.55-1.30); POTASSIUM 2.8 MMOL/L (3.5-5.1); SODIUM 134 MMOL/L (136-145)
[2020-02-08] MEDS ORDERED: Hydromorphone 0.5mg/0.5ml inj IVP PRN (18:00)
[2020-02-08] MEDS: cloNIDine 0.2mg Tab ORAL SCH (18:30)
[2020-02-08] MEDS: Hydromorphone 0.5mg/0.5ml inj IVP PRN (18:31)
[2020-02-08] MEDS: Levemir Flexpen SUBQ SCH (18:32)
--- NOTE | 2020-02-08 18:44 | Consultation ---
DATE OF CONSULTATION: 02/08/2020 CONSULTING PHYSICIAN: Arsalan Rhodes MD REASON FOR CONSULTATION: 1. End-stage renal disease, on hemodialysis Saturday, , Saturday. 2. Chest pain. HISTORY OF PRESENT ILLNESS: The patient is a 29-year-old gentleman brought in by paramedics for increased chest pain and abdominal pain, noted nausea without any emesis, has type 1 diabetes mellitus. He is undergoing dialysis every Saturday, , Saturday, and he did have his dialysis on Saturday. The patient is known HIV positive. He denies any current diarrhea. ALLERGIES: Aspirin. PAST MEDICAL HISTORY: 1. Diabetes mellitus. 2. HIV 3. Anemia of chronic kidney disease. 4. End-stage renal disease, on hemodialysis. 5. Hypertension. PAST SURGICAL HISTORY: Right upper extremity AV fistula. SOCIAL HISTORY: Denies any tobacco, alcohol, or illicit drug use. REVIEW OF SYSTEMS: NEUROLOGIC: The patient denies headache, change in vision, syncope, or presyncopal episodes. CARDIOVASCULAR: Having chest pain. No palpitations. PULMONARY: No difficulty breathing, productive cough, or sputum. GASTROINTESTINAL/GENITOURINARY: Having some nausea but no emesis. ENDOCRINOLOGY: No night sweats, fevers, or chills. MUSCULOSKELETAL: The patient is feeling weak, tired, and fatigue. PHYSICAL EXAMINATION: VITAL SIGNS: Blood pressure 151/90, respiratory rate 16, pulse 85, temperature 98, and 100% oxygen saturation on room air. GENERAL: The patient is awake and alert, not otherwise in distress. HEENT: Extraocular muscles are intact. No lymphadenopathy noted. Oropharyngeal mucosa is clear and dry. CARDIOVASCULAR: S1, S2. No rubs or gallops. PULMONARY: Clear to auscultation bilaterally. No rales, rhonchi, or wheezes. ABDOMEN: Mild tenderness with fair bowel sounds. EXTREMITIES: No edema noted. LABORATORY DATA: Labs dated February 08, 2020 - white cell count 4, hemoglobin 11.5, and platelet count 145,000. Sodium 131, potassium 3.2, creatinine 4.8, BUN 13. ASSESSMENT AND PLAN: 1. End-stage renal disease, on hemodialysis. The patient undergoes hemodialysis on a Saturday, , and Saturday schedule. 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 The patient will undergo hemodialysis tomorrow. 2. Acute coronary syndrome, chest pain. Defer management to primary care physician. 3. Hypokalemia, mild. We will replace with 20 mEq by mouth. 4. Diabetes mellitus, being managed by primary care physician. 5. Anemia of chronic kidney disease. Hemoglobin currently 11.5. No need for Epogen. I appreciate the assistance of the hospitalist group in admitting the patient that I continuously follow here at [facility]. Arsalan Rhodes MD DR: JACKIE JOB#: [id number] CC:
[2020-02-08 20:00] VITALS: BP 198/119
[2020-02-08] MEDS: HydrALAZINE 25mg tab ORAL SCH (21:13)
[2020-02-09] VITALS (7 sets, daily range): BP systolic 133–187; BP diastolic 78–110
[2020-02-09] MEDS: cloNIDine 0.2mg Tab ORAL SCH ×5 (00:15→23:50)
[2020-02-09] MEDS: Hydromorphone 0.5mg/0.5ml inj IVP PRN ×4 (00:37→20:04)
[2020-02-09] MEDS: HydrALAZINE 25mg tab ORAL SCH ×3 (05:26→21:31)
[2020-02-09 05:50] LABS: HEMATOCRIT 35.7 % (42.0-52.0); HEMOGLOBIN 11.4 G/DL (14.2-18.0); MEAN CORPUSCULAR VOLUME 96 FL (80-99); PLATELET COUNT 143 K/UL (150-450); RED BLOOD COUNT 3.74 M/UL (4.70-6.10); RED CELL DISTRIBUTION WIDTH 14.1 % (11.6-14.8); WHITE BLOOD COUNT 2.7 K/UL (4.8-10.8)
[2020-02-09] MEDS: NovoLOG Insulin Flexpen SUBQ SCH ×4 (06:25→20:12)
[2020-02-09 07:38] LABS: ALANINE AMINOTRANSFERASE 23 U/L (12-78); ALBUMIN 3.4 G/DL (3.4-5.0); ALKALINE PHOSPHATASE 62 U/L (46-116); ASPARTATE AMINO TRANSFERASE 25 U/L (15-37); BILIRUBIN,DIRECT 0.1 MG/DL (0.0-0.3); BILIRUBIN,TOTAL 0.3 MG/DL (0.2-1.0)
[2020-02-09 07:47] LABS: ANION GAP 12 mmol/L (5-15); BLOOD UREA NITROGEN 17 mg/dL (7-18); CARBON DIOXIDE 27 MMOL/L (21-32); CHLORIDE 95 MMOL/L (98-107); CHOLESTEROL 271 MG/DL (< 200); CREATININE 6.4 MG/DL (0.55-1.30); HDL CHOLESTEROL 116 MG/DL (40-60); PHOSPHORUS 4.1 MG/DL (2.5-4.9); POTASSIUM 3.2 MMOL/L (3.5-5.1); SODIUM 134 MMOL/L (136-145); TRIGLYCERIDES 74 MG/DL (30-150)
[2020-02-09] MEDS: DiphenhydrAMINE 50mg/ml Inj IVP PRN ×2 (12:38→18:57)
--- NOTE | 2020-02-09 13:16 | Nephrology Progress Note ---
Assessment/Plan Status: stable Assessment/Plan: A/P 1) ESRD- tolerating current session - will arrange TTS while in patient 2) Hypokalemia- will replace po today 20 meq as well 3) ACS/Chest Pain- cardiology to evaluate 4) DM- mgmt per PCP 5) Anemia of CKD- Hgb >10, no need for EPO Subjective Date patient seen: Feb 09, 2020 Time patient seen: 13:14 ROS Limited/Unobtainable: No Allergies: Coded Allergies: ASPIRIN (Unverified Allergy, Unknown, 02/08/20) All Systems: reviewed and negative except above Subjective Patient resting and tolerating HD session Objective Last 24 Hour Vital Signs Date Time Temp Pulse Resp B/P (MAP) Pulse Ox O2 Delivery O2 Flow Rate FiO2 02/09/20 12:00 97.5 133 18 187/104 (131) 100 02/09/20 11:32 187/104 02/09/20 11:31 130 187/104 02/09/20 09:00 Room Air Room Air 02/09/20 09:00 83 180/110 02/09/20 08:00 83 02/09/20 08:00 96.8 88 18 180/110 (133) 100 02/09/20 07:16 97.7 02/09/20 05:26 176/107 02/09/20 05:26 176/107 02/09/20 04:30 97.7 82 17 176/107 (130) 92 02/09/20 04:00 83 02/09/20 00:15 150/89 02/09/20 00:00 98.2 80 19 150/89 (109) 97 02/09/20 00:00 86 02/08/20 21:13 198/119 02/08/20 21:12 89 198/119 02/08/20 21:00 Room Air 02/08/20 20:00 97.7 89 19 198/119 (145) 99 02/08/20 20:00 90 02/08/20 18:30 158/97 02/08/20 16:00 98.4 88 18 158/97 (117) 100 02/08/20 16:00 88 02/08/20 14:24 Room Air 02/08/20 13:56 98.0 85 16 151/90 100 Room Air Intake and Output 02/08/20 02/09/20 19:00 07:00 Intake Total 626 ml Balance 626 ml Intake Oral 120 ml IV Total 506 ml Laboratory Tests 02/08/20 17:00: Venous Blood pH 7.422, Venous Blood Partial Pressure CO2 38.7, Venous Blood Partial Pressure O2 87.6, Venous Blood HCO3 24.7, Venous Blood Total Carbon Dioxide 38.7, Venous Blood Base Excess 0.3, Venous Blood Carboxyhemoglobin 0.5, Methemoglobin 0.2, Sodium Level 134L, Potassium Level 2.8L, Chloride Level 95L, Carbon Dioxide Level 27, Anion Gap 12, Blood Urea Nitrogen 14, Creatinine 5.2H, Estimat Glomerular Filtration Rate 16.2, Glucose Level 146#H, Calcium Level 8.8 , Troponin I 0.018, Beta-Hydroxybutyric Acid [Pending] 02/08/20 23:20: Troponin I 0.020 02/09/20 05:33: Sodium Level 134L, Potassium Level 3.2L, Chloride Level 95L, Carbon Dioxide Level 27, Anion Gap 12, Blood Urea Nitrogen 17, Creatinine 6.4H, Estimat Glomerular Filtration Rate 12.7, Glucose Level 113H, Calcium Level 9.0, Troponin I 0.011, White Blood Count 2.7L, Red Blood Count 3.74L, Hemoglobin 11.4L, Hematocrit 35.7L, Mean Corpuscular Volume 96, Mean Corpuscular Hemoglobin 30.4, Mean Corpuscular Hemoglobin Concent 31.8L, Red Cell Distribution Width 14.1, Platelet Count 143L, Mean Platelet Volume 7.1, Neutrophils (%) (Auto) , Lymphocytes (%) (Auto) , Monocytes (%) (Auto) , Eosinophils (%) (Auto) , Basophils (%) (Auto) , Hemoglobin A1c 11.2H, Phosphorus Level 4.1, Magnesium Level 2.2, Total Bilirubin 0.3, Direct Bilirubin 0.1, Aspartate Amino Transf (AST/SGOT) 25, Alanine Aminotransferase ( ALT/SGPT) 23, Alkaline Phosphatase 62, Total Protein 6.4, Albumin 3.4, Triglycerides Level 74, Cholesterol Level 271H, LDL Cholesterol 127H, HDL Cholesterol 116H, Cholesterol/HDL Ratio 2.3L, Thyroid Stimulating Hormone (TSH) 1.925 Height (Feet): 5 Height (Inches): 9.00 Weight (Pounds): 144 General Appearance: no apparent distress EENT: normal ENT inspection Neck: normal alignment Cardiovascular: normal rate, regular rhythm Respiratory/Chest: lungs clear, normal breath sounds Abdomen: non tender, soft Edema: no edema noted Arm (L), no edema noted Arm (R), no edema noted Leg (L), no edema noted Leg (R), no edema noted Pedal (L), no edema noted Pedal (R), no edema noted Generalized Arsalan Rhodes MD Feb 09, 2020 13:16
--- NOTE | 2020-02-09 13:25 | General Progress Note ---
Assessment/Plan Status: stable Assessment/Plan: 29y/o male with DM1, ESRD on HD who presents with chest pain, abd pain, nausea/ vomiting, admitted for mild DKA and for r/o ACS. # Mild DKA- BG 380s on admi, AG 19, bicarb 22; RESOLVED # Anion gap metabolic acidosis # DM type 1 - s/p insulin gtt in ED w/ improvement in BG, bicarb and AG - SSI - Levemir 13 units daily - Diabetic diet - Check A1C - Consider endo eval # Atypical chest pain - Cardiology consulted - Trend trop: neg x 3 - Check TTE # ESRD on HD - Renal consulted - HD per renal - Trend BMP # Anemia in ESRD - Trend CBC DVT Prophylaxis: SCD, HSQ Code Status: Full Hospital Classification Declaration: Based on this initial evaluation, and depending on the patient's clinical course, I anticipate that this patient will require hospitalization for 1-2 days for mild DKA, r/o ACS, and close respiratory/hemodynamic monitoring. Disposition: Once the patient is stable to leave the hospital, I anticipate the patient will likely be discharged to the following environment: home I spent 36 minutes on this patient's case, and 20 minutes were dedicated to counseling and/or care coordination. Discussed with patient/family, nursing staff, cardiology, renal regarding clinical status, treatment course, and disposition planning. And additional 35 minutes spent on chart review Time of note may not reflect time of encounter. Subjective Date patient seen: Feb 09, 2020 Time patient seen: 11:05 Allergies: Coded Allergies: ASPIRIN (Unverified Allergy, Unknown, 02/08/20) All Systems: reviewed and negative except above Subjective continues to c/o cp, radiating "all over" constant pain no sob, abd pain, n, v HTN uncontrolled, awaiting HD Objective Last 24 Hour Vital Signs Date Time Temp Pulse Resp B/P (MAP) Pulse Ox O2 Delivery O2 Flow Rate FiO2 02/09/20 12:00 97.5 133 18 187/104 (131) 100 02/09/20 11:32 187/104 02/09/20 11:31 130 187/104 02/09/20 09:00 Room Air Room Air 02/09/20 09:00 83 180/110 02/09/20 08:00 83 02/09/20 08:00 96.8 88 18 180/110 (133) 100 02/09/20 07:16 97.7 02/09/20 05:26 176/107 02/09/20 05:26 176/107 02/09/20 04:30 97.7 82 17 176/107 (130) 92 02/09/20 04:00 83 02/09/20 00:15 150/89 02/09/20 00:00 98.2 80 19 150/89 (109) 97 02/09/20 00:00 86 02/08/20 21:13 198/119 02/08/20 21:12 89 198/119 02/08/20 21:00 Room Air 02/08/20 20:00 97.7 89 19 198/119 (145) 99 02/08/20 20:00 90 02/08/20 18:30 158/97 02/08/20 16:00 98.4 88 18 158/97 (117) 100 02/08/20 16:00 88 02/08/20 14:24 Room Air 02/08/20 13:56 98.0 85 16 151/90 100 Room Air Intake and Output 02/08/20 02/09/20 19:00 07:00 Intake Total 626 ml Balance 626 ml Intake Oral 120 ml IV Total 506 ml Laboratory Tests 02/08/20 17:00: Venous Blood pH 7.422, Venous Blood Partial Pressure CO2 38.7, Venous Blood Partial Pressure O2 87.6, Venous Blood HCO3 24.7, Venous Blood Total Carbon Dioxide 38.7, Venous Blood Base Excess 0.3, Venous Blood Carboxyhemoglobin 0.5, Methemoglobin 0.2, Sodium Level 134L, Potassium Level 2.8L, Chloride Level 95L, Carbon Dioxide Level 27, Anion Gap 12, Blood Urea Nitrogen 14, Creatinine 5.2H, Estimat Glomerular Filtration Rate 16.2, Glucose Level 146#H, Calcium Level 8.8 , Troponin I 0.018, Beta-Hydroxybutyric Acid [Pending] 02/08/20 23:20: Troponin I 0.020 02/09/20 05:33: Sodium Level 134L, Potassium Level 3.2L, Chloride Level 95L, Carbon Dioxide Level 27, Anion Gap 12, Blood Urea Nitrogen 17, Creatinine 6.4H, Estimat Glomerular Filtration Rate 12.7, Glucose Level 113H, Calcium Level 9.0, Troponin I 0.011, White Blood Count 2.7L, Red Blood Count 3.74L, Hemoglobin 11.4L, Hematocrit 35.7L, Mean Corpuscular Volume 96, Mean Corpuscular Hemoglobin 30.4, Mean Corpuscular Hemoglobin Concent 31.8L, Red Cell Distribution Width 14.1, Platelet Count 143L, Mean Platelet Volume 7.1, Neutrophils (%) (Auto) , Lymphocytes (%) (Auto) , Monocytes (%) (Auto) , Eosinophils (%) (Auto) , Basophils (%) (Auto) , Hemoglobin A1c 11.2H, Phosphorus Level 4.1, Magnesium Level 2.2, Total Bilirubin 0.3, Direct Bilirubin 0.1, Aspartate Amino Transf (AST/SGOT) 25, Alanine Aminotransferase ( ALT/SGPT) 23, Alkaline Phosphatase 62, Total Protein 6.4, Albumin 3.4, Triglycerides Level 74, Cholesterol Level 271H, LDL Cholesterol 127H, HDL Cholesterol 116H, Cholesterol/HDL Ratio 2.3L, Thyroid Stimulating Hormone (TSH) 1.925 Height (Feet): 5 Height (Inches): 9.00 Weight (Pounds): 144 General Appearance: no apparent distress, alert Neck: supple, normal inspection Cardiovascular: normal rate, regular rhythm Respiratory/Chest: no respiratory distress, no accessory muscle use Abdomen: soft, no organomegaly, no mass Extremities: non-tender, normal capillary refill Izabela Fisher DO Feb 09, 2020 13:25
[2020-02-09] MEDS: Levemir Flexpen SUBQ SCH (17:22)
[2020-02-10] VITALS: BP 159/96
[2020-02-10] MEDS: DiphenhydrAMINE 50mg/ml Inj IVP PRN ×4 (00:59→18:52)
[2020-02-10] MEDS: Hydromorphone 0.5mg/0.5ml inj IVP PRN (02:44)
[2020-02-10 04:00] VITALS: BP 166/98
[2020-02-10] MEDS: cloNIDine 0.2mg Tab ORAL SCH ×4 (06:13→23:58)
[2020-02-10] MEDS: HydrALAZINE 25mg tab ORAL SCH (06:13)
[2020-02-10] MEDS: NovoLOG Insulin Flexpen SUBQ SCH ×4 (06:24→21:18)
[2020-02-10 06:29] LABS: HEMATOCRIT 36.1 % (42.0-52.0); HEMOGLOBIN 11.3 G/DL (14.2-18.0); MEAN CORPUSCULAR VOLUME 96 FL (80-99); PLATELET COUNT 132 K/UL (150-450); RED BLOOD COUNT 3.76 M/UL (4.70-6.10); RED CELL DISTRIBUTION WIDTH 13.9 % (11.6-14.8); WHITE BLOOD COUNT 2.4 K/UL (4.8-10.8)
[2020-02-10 07:09] LABS: ANION GAP 11 mmol/L (5-15); BLOOD UREA NITROGEN 13 mg/dL (7-18); CARBON DIOXIDE 27 MMOL/L (21-32); CHLORIDE 98 MMOL/L (98-107); CREATININE 5.8 MG/DL (0.55-1.30); POTASSIUM 3.7 MMOL/L (3.5-5.1); SODIUM 136 MMOL/L (136-145)
[2020-02-10 07:49] VITALS: BP 177/101
--- NOTE | 2020-02-10 08:56 | General Progress Note ---
Assessment/Plan Status: stable Assessment/Plan: 29y/o male with DM1, ESRD on HD who presents with chest pain, abd pain, nausea/ vomiting, admitted for mild DKA and for r/o ACS. # Mild DKA- BG 380s on admi, AG 19, bicarb 22; RESOLVED # Anion gap metabolic acidosis # DM type 1 - s/p insulin gtt in ED w/ improvement in BG, bicarb and AG - SSI - Levemir 13 units daily - Diabetic diet - Check A1C - Consider endo eval # Atypical chest pain - Cardiology consulted - Trend trop: neg x 3 - Check TTE: Reviewed # ESRD on HD - Renal consulted - HD per renal - Trend BMP # Anemia in ESRD #Pancytopenia -Consult hematology oncology - Trend CBC # History of HIV -Infectious disease consult DVT Prophylaxis: SCD, HSQ Code Status: Full Hospital Classification Declaration: Based on this initial evaluation, and depending on the patient's clinical course, I anticipate that this patient will require hospitalization for 1-2 days for mild DKA, r/o ACS, and close respiratory/hemodynamic monitoring. Disposition: Once the patient is stable to leave the hospital, I anticipate the patient will likely be discharged to the following environment: home I spent 36 minutes on this patient's case, and 20 minutes were dedicated to counseling and/or care coordination. Discussed with patient/family, nursing staff, cardiology, renal regarding clinical status, treatment course, and disposition planning. Time of note may not reflect time of encounter. Subjective Date patient seen: Feb 10, 2020 Time patient seen: 12:00 Allergies: Coded Allergies: ASPIRIN (Unverified Allergy, Unknown, 02/08/20) Subjective Patient is upset about DC of IV Dilaudid; discussed with him oral options No fevers, chills, cough, shortness of breath Follow-up EKG, TTE; troponins negative x3 Still hypertensive, increase hydralazine and labetalol, continues on Norvasc and clonidine Dialysis patient Pancytopenia/history of HIV, consult hematology oncology and infectious disease Objective Last 24 Hour Vital Signs Date Time Temp Pulse Resp B/P (MAP) Pulse Ox O2 Delivery O2 Flow Rate FiO2 02/10/20 08:02 86 177/101 02/10/20 08:02 86 177/101 02/10/20 07:49 96.7 86 18 177/101 (126) 100 02/10/20 06:13 168/101 02/10/20 06:13 168/101 02/10/20 04:00 83 02/10/20 04:00 97.1 89 18 166/98 (120) 99 02/10/20 00:00 82 02/10/20 00:00 97.4 85 20 159/96 (117) 98 02/09/20 23:50 159/96 02/09/20 21:31 141/85 02/09/20 21:00 Room Air Room Air 02/09/20 20:36 96.9 02/09/20 20:03 78 180/101 02/09/20 20:00 96.4 81 18 180/101 (127) 98 02/09/20 17:20 133/78 02/09/20 16:00 81 02/09/20 15:53 96.9 85 18 133/78 (96) 100 02/09/20 15:23 80 169/97 (121) 02/09/20 14:00 137/78 02/09/20 12:00 77 02/09/20 12:00 97.5 133 18 187/104 (131) 100 02/09/20 11:32 187/104 02/09/20 11:31 130 187/104 02/09/20 09:00 Room Air Room Air 02/09/20 09:00 83 180/110 Intake and Output 02/09/20 02/10/20 19:00 07:00 Intake Total 360 ml 480 ml Output Total 54898 ml Balance -18718 ml 480 ml Intake Oral 360 ml 480 ml Output Hemodialysis UF 13100 ml # Voids 1 Laboratory Tests 02/10/20 06:05: White Blood Count 2.4L, Red Blood Count 3.76L, Hemoglobin 11.3L, Hematocrit 36.1L, Mean Corpuscular Volume 96, Mean Corpuscular Hemoglobin 30.0, Mean Corpuscular Hemoglobin Concent 31.3L, Red Cell Distribution Width 13.9, Platelet Count 132L, Mean Platelet Volume 7.3, Neutrophils (%) (Auto) , Lymphocytes (%) (Auto) , Monocytes (%) (Auto) , Eosinophils (%) (Auto) , Basophils (%) (Auto) , Neutrophils % (Manual) [Pending], Lymphocytes % (Manual) [Pending], Platelet Estimate [Pending], Platelet Morphology [Pending], Sodium Level 136, Potassium Level 3.7, Chloride Level 98, Carbon Dioxide Level 27, Anion Gap 11, Blood Urea Nitrogen 13, Creatinine 5.8H, Estimat Glomerular Filtration Rate 14.3, Glucose Level 172H, Calcium Level 9.0 Height (Feet): 5 Height (Inches): 9.00 Weight (Pounds): 139 Objective GENERAL: No acute distress, appears comfortable, alert HEENT: NCAT, non-icteric eyes, pupils PERRLA Neck: No cervical lymphadenopathy, trachea midline CV: Regular rate and rhythm, no murmurs rubs or gallops RESP: Clear to auscultation bilaterally, no wheezes/rhonchi/crackles ABD: soft, non-distended, no TTP EXT: Normal muscle tone, +5/5 muscle strength NEURO: No obvious deficits, alert and oriented x3 Izabela Fisher DO Feb 10, 2020 08:56
--- NOTE | 2020-02-10 09:03 | Consultation ---
History of Present Illness General Chief Complaint: Abdominal Pain Present Illness Allergies: Coded Allergies: ASPIRIN (Unverified Allergy, Unknown, 02/08/20) Medication History Scheduled Clonidine Hcl* (Catapres*), 0.2 MG ORAL Q6HR, (Reported) Hydralazine Hcl* (Hydralazine Hcl*), 25 MG ORAL EVERY 8 HOURS, (Reported) Insulin Glargine (Lantus), 0 SUBQ BEDTIME, (Reported) Labetalol Hcl* (Normodyne*), 100 MG ORAL EVERY 12 HOURS, (Reported) Nifedipine Er* (Nifedipine Er*), 30 MG ORAL DAILY, (Reported) Miscellaneous Medications Insulin Lispro (Humalog), 0 SUBQ, (Reported) Patient History Healthcare decision maker Resuscitation status Advanced Directive on File Physical Exam Last 24 Hour Vital Signs Date Time Temp Pulse Resp B/P (MAP) Pulse Ox O2 Delivery O2 Flow Rate FiO2 02/10/20 08:02 86 177/101 02/10/20 08:02 86 177/101 02/10/20 07:49 96.7 86 18 177/101 (126) 100 02/10/20 06:13 168/101 02/10/20 06:13 168/101 02/10/20 04:00 83 02/10/20 04:00 97.1 89 18 166/98 (120) 99 02/10/20 00:00 82 02/10/20 00:00 97.4 85 20 159/96 (117) 98 02/09/20 23:50 159/96 02/09/20 21:31 141/85 02/09/20 21:00 Room Air Room Air 02/09/20 20:36 96.9 02/09/20 20:03 78 180/101 02/09/20 20:00 96.4 81 18 180/101 (127) 98 02/09/20 17:20 133/78 02/09/20 16:00 81 02/09/20 15:53 96.9 85 18 133/78 (96) 100 02/09/20 15:23 80 169/97 (121) 02/09/20 14:00 137/78 02/09/20 12:00 77 02/09/20 12:00 97.5 133 18 187/104 (131) 100 02/09/20 11:32 187/104 02/09/20 11:31 130 187/104 Intake and Output 02/09/20 02/10/20 19:00 07:00 Intake Total 360 ml 480 ml Output Total 06590 ml Balance -00083 ml 480 ml Intake Oral 360 ml 480 ml Output Hemodialysis UF 34957 ml # Voids 1 Laboratory Tests Test 02/10/20 06:05 White Blood Count 2.4 K/UL (4.8-10.8) L Red Blood Count 3.76 M/UL (4.70-6.10) L Hemoglobin 11.3 G/DL (14.2-18.0) L Hematocrit 36.1 % (42.0-52.0) L Mean Corpuscular Volume 96 FL (80-99) Mean Corpuscular Hemoglobin 30.0 PG (27.0-31.0) Mean Corpuscular Hemoglobin Concent 31.3 G/DL (32.0-36.0) L Red Cell Distribution Width 13.9 % (11.6-14.8) Platelet Count 132 K/UL (150-450) L Mean Platelet Volume 7.3 FL (6.5-10.1) Neutrophils (%) (Auto) % (45.0-75.0) Lymphocytes (%) (Auto) % (20.0-45.0) Monocytes (%) (Auto) % (1.0-10.0) Eosinophils (%) (Auto) % (0.0-3.0) Basophils (%) (Auto) % (0.0-2.0) Neutrophils % (Manual) Pending Lymphocytes % (Manual) Pending Platelet Estimate Pending Platelet Morphology Pending Sodium Level 136 MMOL/L (136-145) Potassium Level 3.7 MMOL/L (3.5-5.1) Chloride Level 98 MMOL/L (98-107) Carbon Dioxide Level 27 MMOL/L (21-32) Anion Gap 11 mmol/L (5-15) Blood Urea Nitrogen 13 mg/dL (7-18) Creatinine 5.8 MG/DL (0.55-1.30) H Estimat Glomerular Filtration Rate 14.3 mL/min (>60) Glucose Level 172 MG/DL (74-106) H Calcium Level 9.0 MG/DL (8.5-10.1) Height (Feet): 5 Height (Inches): 9.00 Weight (Pounds): 139 Medications Current Medications Medications (Trade) Dose Ordered Sig/Jo-Ann Route PRN Reason Start Time Stop Time Status Last Admin Dose Admin Acetaminophen (Tylenol) 650 mg Q6H PRN ORAL For Headache OR fever 02/08/20 18:30 03/09/20 16:29 Acetaminophen (Tylenol) 650 mg Q6H PRN ORAL Mild Pain (Pain Scale 1-3) 02/08/20 18:30 03/09/20 18:29 Acetaminophen/ Hydrocodone Bitart ([place] 5/325) 1 tab Q6H PRN ORAL Severe Pain (Pain Scale 7-10) 02/08/20 16:30 02/15/20 16:29 Clonidine HCl (Catapres tab) 0.2 mg Q6HR ORAL 02/08/20 18:00 05/08/20 17:59 02/10/20 06:13 Dextrose (Dextrose 50%) 25 ml Q30M PRN IV Hypoglycemia 02/08/20 14:45 05/08/20 14:44 Dextrose (Dextrose 50%) 50 ml Q30M PRN IV Hypoglycemia 02/08/20 14:45 05/08/20 14:44 Diphenhydramine HCl (Benadryl) 25 mg Q6H PRN IVP Itching 02/08/20 15:00 03/09/20 14:59 02/10/20 06:59 Hydralazine HCl (Apresoline) 50 mg EVERY 8 HOURS ORAL 02/10/20 14:00 05/08/20 21:59 Insulin Aspart (NovoLOG) BEFORE MEALS AND HS SUBQ 02/08/20 16:30 05/08/20 16:29 02/10/20 06:24 Insulin Detemir (Levemir) 13 units Q24H SUBQ 02/08/20 18:00 05/08/20 17:59 02/09/20 17:22 Labetalol HCl (Normodyne) 200 mg EVERY 12 HOURS ORAL 02/10/20 21:00 03/09/20 20:59 Nifedipine (Procardia XL) 30 mg DAILY ORAL 02/09/20 09:00 03/10/20 08:59 02/10/20 08:02 Ondansetron HCl (Zofran) 4 mg Q6H PRN IVP Nausea & Vomiting 02/08/20 18:15 03/09/20 18:14 02/08/20 23:36 Tramadol HCl (Ultram) 50 mg Q6H PRN ORAL Moderate Pain (Pain Scale 4-6) 02/08/20 16:30 02/15/20 16:29 Assessment/Plan Status Narrative Hematology Consultation REQ MD: Michelle Fisher Reason for Hospitalization: mild DKA, r/o ACS RFC: Pancytopenia DOS 02/10/2020 ID 29y/o male with DM1, ESRD on HD who presents with chest pain, abd pain, nausea/ vomiting. Pt states his BG has been running high and today it was 300s prompting him to come ot ER. He c/o chest pain, abd pain, nausea/vomiting which are similar to his prior DKA symptoms but milder. Denies f/c, SOB. Sates he is complaint with diabetic diet and insulini. In ED, pt afebrile, hypertensive to 150s/90, HR 90s, O2 sat 98% on RA. Labs showed BG 389, bicarb 22, AG 19.Urine acetone level positive, small. Pt stared on insulin gtt. BG improved to 160s, bicarb 27, AG 12. Insulin gt stopped.Heme service was consulted for pancytopenia I reviewed prior labs and imaigng and ordered us abd and hep and hiv seriology Coded Allergies: ASPIRIN (Unverified Allergy, Unknown, 02/08/20) COVID-19 Screening Contact w/high risk pt: No Recent Travel to affected area: No Experienced COVID-19 symptoms?: No Medication History Scheduled Clonidine Hcl* (Catapres*), 0.2 MG ORAL Q6HR, (Reported) Hydralazine Hcl* (Hydralazine Hcl*), 25 MG ORAL EVERY 8 HOURS, (Reported) Insulin Glargine (Lantus), 0 SUBQ BEDTIME, (Reported) Labetalol Hcl* (Normodyne*), 100 MG ORAL EVERY 12 HOURS, (Reported) Nifedipine Er* (Nifedipine Er*), 30 MG ORAL DAILY, (Reported) Miscellaneous Medications Insulin Lispro (Humalog), 0 SUBQ, (Reported) ROS (review of systems): Constitutional: No fever, no chills, no night sweats, no fatigue Skin: No rashes, lumps, itchiness, dryness HEENT: No [place], ear ache, visual changes, double vision, nosebleeds Breasts: No lumps, pain, discharge Pulmonary: No cough, sputum, shortness of breath, coughing up blood Cardiovascular: ++chest pain GI: No nausea, vomiting, diarrhea, melena, hematochezia, change in appetite, : No dysuria, frequency, urgency, urinary incontinence, foamy urine Musculoskeletal: No joint swelling or muscle pain, trauma, back pain Neurologic: No dizziness, fainting, seizures, changes in smell or taste Psychiatric: No nervousness, stress, or depression, anxiety, hallucinations Endocrine: No weight change, heat or cold intolerance, tremor, insomnia Physical Exam: Vitals: reviewed General: NAD HEENT: nc, at Neck: supple Chest: clear breath sounds bilaterally Cardiovascular: RRR, no s3, s4 Abdomen: soft, nontender, nd Extremities: no cce, normal range of motion Neuro: alert and oriented Labs noted Imaging reviewed Assessment and Recs # Pancytopenia -- multiple etiologies could be related to underlying liver disease, medication-induced, infection versus viral syndrome versus underlying bone marrow cause --> peripheral smear has been ordered and does not show significant abnormalities --> Medications have been reviewed --> Continue to monitor for improvement, trend cbc --> Hep panel and HIV have been ordered --> US abd ordered to r/o cirrhosis and hepatosplenomegaly --> reverse isolation if ANC is <2000 --> Give neupogen if ANC <1000 --> Transfuse if hgb <7, with 1 unit prbc --> consider bone marrow biopsy if no other causes are found # Anemia of chronic disease due to underlying chronic medical issues, multifactorial v Gi bleed --> Anemia workup has been ordered, rule out gi bleed --> No evidence of hemolysis is noted, peripheral smear has been reviewed. --> Hgb goal >7. Transfuse prn. --> Epogen or iron at this time is not particularly indicated --> Medications have been reviewed --> low threshold for gi evaluation in case has occult + --> bone marrow biopsy is not indicated given the other more likely causes # ESRD on HD who presents with chest pain, abd pain, nausea/vomiting, admitted for mild DKA and for r/o ACS. --> as per renal care --> hd as required/prn # Mild DKA- BG 380s on admi, AG 19, bicarb 22; RESOLVED # Anion gap metabolic acidosis # DM type 1 --> endo eval, levemir, iss # Atypical chest pain --> per cards # Dvt ppx heparin sq The timing of this note does not necessarily reflect the time of the patient was seen. Greatly appreciate consultation. Jose Jernigan MD Feb 10, 2020 09:03
[2020-02-10 09:33] LABS: % IRON SATURATION 24 % (15-50); IRON 44 ug/dL (50-175); TOTAL IRON BINDING CAPACITY 184 ug/dL (250-450)
[2020-02-10 09:48] LABS: FERRITIN 590 NG/ML (8-388)
--- NOTE | 2020-02-10 10:34 | Nephrology Progress Note ---
Assessment/Plan Status: stable Assessment/Plan: A/P 1) ESRD - continue TTS while in patient - tolerated session with 3 L UF yesterday 2) Hypokalemia- corrected 3) ACS/Chest Pain- cardiology to manage 4) DM- mgmt per PCP 5) Anemia of CKD- Hgb >10, no need for EPO Subjective Date patient seen: Feb 10, 2020 Time patient seen: 10:33 ROS Limited/Unobtainable: No Allergies: Coded Allergies: ASPIRIN (Unverified Allergy, Unknown, 02/08/20) Subjective Patient feeling better in no overt distress Objective Last 24 Hour Vital Signs Date Time Temp Pulse Resp B/P (MAP) Pulse Ox O2 Delivery O2 Flow Rate FiO2 02/10/20 09:18 86 177/101 02/10/20 09:00 Room Air Room Air 02/10/20 08:02 86 177/101 02/10/20 08:02 86 177/101 02/10/20 08:00 81 02/10/20 07:49 96.7 86 18 177/101 (126) 100 02/10/20 06:13 168/101 02/10/20 06:13 168/101 02/10/20 04:00 83 02/10/20 04:00 97.1 89 18 166/98 (120) 99 02/10/20 00:00 82 02/10/20 00:00 97.4 85 20 159/96 (117) 98 02/09/20 23:50 159/96 02/09/20 21:31 141/85 02/09/20 21:00 Room Air Room Air 02/09/20 20:36 96.9 02/09/20 20:03 78 180/101 02/09/20 20:00 96.4 81 18 180/101 (127) 98 02/09/20 17:20 133/78 02/09/20 16:00 81 02/09/20 15:53 96.9 85 18 133/78 (96) 100 02/09/20 15:23 80 169/97 (121) 02/09/20 14:00 137/78 02/09/20 12:00 77 02/09/20 12:00 97.5 133 18 187/104 (131) 100 02/09/20 11:32 187/104 02/09/20 11:31 130 187/104 Intake and Output 02/09/20 02/10/20 19:00 07:00 Intake Total 360 ml 480 ml Output Total 00105 ml Balance -92174 ml 480 ml Intake Oral 360 ml 480 ml Output Hemodialysis UF 45807 ml # Voids 1 Laboratory Tests 02/10/20 00:00: HIV-1 Antibody [Pending], HIV-2 Antibody [Pending] 02/10/20 06:05: White Blood Count 2.4L, Red Blood Count 3.76L, Hemoglobin 11.3L, Hematocrit 36.1L, Mean Corpuscular Volume 96, Mean Corpuscular Hemoglobin 30.0, Mean Corpuscular Hemoglobin Concent 31.3L, Red Cell Distribution Width 13.9, Platelet Count 132L, Mean Platelet Volume 7.3, Neutrophils (%) (Auto) , Lymphocytes (%) (Auto) , Monocytes (%) (Auto) , Eosinophils (%) (Auto) , Basophils (%) (Auto) , Differential Total Cells Counted 100, Neutrophils % ( Manual) 73, Lymphocytes % (Manual) 18L, Monocytes % (Manual) 5, Eosinophils % ( Manual) 2, Basophils % (Manual) 2, Band Neutrophils 0, Platelet Estimate DecreasedL, Platelet Morphology Normal, Hypochromasia 1+, Reticulocyte Count 0.7 , Sodium Level 136, Potassium Level 3.7, Chloride Level 98, Carbon Dioxide Level 27, Anion Gap 11, Blood Urea Nitrogen 13, Creatinine 5.8H, Estimat Glomerular Filtration Rate 14.3, Glucose Level 172H, Calcium Level 9.0, Iron Level 44L, Total Iron Binding Capacity 184L, Percent Iron Saturation 24, Unsaturated Iron Binding 140, Ferritin 590H, Hepatitis A IgM Antibody [Pending] , Hepatitis B Surface Antigen [Pending], Hepatitis B Core IgM Antibody [Pending] , Hepatitis C Antibody [Pending], HIV (1&2) Antibody Rapid Preliminary positiveH Height (Feet): 5 Height (Inches): 9.00 Weight (Pounds): 139 General Appearance: no apparent distress, alert EENT: normal ENT inspection Neck: normal alignment, supple Cardiovascular: normal rate, regular rhythm Respiratory/Chest: lungs clear, normal breath sounds Abdomen: non tender, soft Edema: no edema noted Arm (L), no edema noted Arm (R), no edema noted Leg (L), no edema noted Leg (R), no edema noted Pedal (L), no edema noted Pedal (R), no edema noted Generalized Arsalan Rhodes MD Feb 10, 2020 10:34
[2020-02-10 11:53] VITALS: BP 200/113
[2020-02-10] MEDS ORDERED: HydrALAZINE 50mg tab ORAL SCH (14:00)
--- NOTE | 2020-02-10 14:19 | Consultation ---
History of Present Illness General Date patient seen: Feb 10, 2020 Time patient seen: 14:14 Chief Complaint: Abdominal Pain Present Illness HPI 29y/o male with DM1, ESRD on HD who presents with chest pain, abd pain, nausea/ vomiting. Pt states his BG has been running high and today it was 300s prompting him to come ot ER. He c/o chest pain, abd pain, nausea/vomiting which are similar to his prior DKA symptoms but milder. Denies f/c, SOB. Sates he is complaint with diabetic diet and insulin Cardiology consulted for chest pain management, no prior CO/PE/DVT/CVA/ Arrhythmias Allergies: Coded Allergies: ASPIRIN (Unverified Allergy, Unknown, 02/08/20) Medication History Scheduled Clonidine Hcl* (Catapres*), 0.2 MG ORAL Q6HR, (Reported) Hydralazine Hcl* (Hydralazine Hcl*), 25 MG ORAL EVERY 8 HOURS, (Reported) Insulin Glargine (Lantus), 0 SUBQ BEDTIME, (Reported) Labetalol Hcl* (Normodyne*), 100 MG ORAL EVERY 12 HOURS, (Reported) Nifedipine Er* (Nifedipine Er*), 30 MG ORAL DAILY, (Reported) Miscellaneous Medications Insulin Lispro (Humalog), 0 SUBQ, (Reported) Patient History Healthcare decision maker Resuscitation status Advanced Directive on File Review of Systems Constitutional: Reports: no symptoms Eye: Reports: no symptoms ENT: Reports: no symptoms Respiratory: Reports: no symptoms Cardiovascular: Reports: chest pain Gastrointestinal: Reports: abdominal pain Genitourinary: Reports: no symptoms Musculoskeletal: Reports: no symptoms Skin: Reports: no symptoms Psychiatric: Reports: no symptoms Neurological: Reports: no symptoms Endocrine: Reports: no symptoms Hematologic/Lymphatic: Reports: no symptoms Physical Exam General Appearance: no apparent distress, alert Lines, tubes and drains: peripheral HEENT: normocephalic, atraumatic Neck: non-tender, normal alignment, supple, normal inspection Respiratory/Chest: chest wall non-tender, lungs clear Cardiovascular/Chest: normal peripheral pulses, normal rate, regular rhythm Abdomen: normal bowel sounds, non tender, soft, no organomegaly Extremities: normal range of motion, non-tender, no calf tenderness Skin Exam: normal pigmentation, warm/dry, cyanotic 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, no motor/sensory deficits Last 24 Hour Vital Signs Date Time Temp Pulse Resp B/P (MAP) Pulse Ox O2 Delivery O2 Flow Rate FiO2 02/10/20 13:18 200/113 02/10/20 12:00 88 02/10/20 11:53 97.8 86 17 200/113 (142) 100 02/10/20 11:23 200/113 02/10/20 09:18 86 177/101 02/10/20 09:00 Room Air Room Air 02/10/20 08:02 86 177/101 02/10/20 08:02 86 177/101 02/10/20 08:00 81 02/10/20 07:49 96.7 86 18 177/101 (126) 100 02/10/20 06:13 168/101 02/10/20 06:13 168/101 02/10/20 04:00 83 02/10/20 04:00 97.1 89 18 166/98 (120) 99 02/10/20 00:00 82 02/10/20 00:00 97.4 85 20 159/96 (117) 98 02/09/20 23:50 159/96 02/09/20 21:31 141/85 02/09/20 21:00 Room Air Room Air 02/09/20 20:36 96.9 02/09/20 20:03 78 180/101 02/09/20 20:00 96.4 81 18 180/101 (127) 98 02/09/20 17:20 133/78 02/09/20 16:00 81 02/09/20 15:53 96.9 85 18 133/78 (96) 100 02/09/20 15:23 80 169/97 (121) Intake and Output 02/09/20 02/10/20 19:00 07:00 Intake Total 360 ml 480 ml Output Total 15972 ml Balance -84993 ml 480 ml Intake Oral 360 ml 480 ml Output Hemodialysis UF 13957 ml # Voids 1 Laboratory Tests Test 02/10/20 00:00 02/10/20 06:05 HIV-1 Antibody Pending HIV-2 Antibody Pending White Blood Count 2.4 K/UL (4.8-10.8) L Red Blood Count 3.76 M/UL (4.70-6.10) L Hemoglobin 11.3 G/DL (14.2-18.0) L Hematocrit 36.1 % (42.0-52.0) L Mean Corpuscular Volume 96 FL (80-99) Mean Corpuscular Hemoglobin 30.0 PG (27.0-31.0) Mean Corpuscular Hemoglobin Concent 31.3 G/DL (32.0-36.0) L Red Cell Distribution Width 13.9 % (11.6-14.8) Platelet Count 132 K/UL (150-450) L Mean Platelet Volume 7.3 FL (6.5-10.1) Neutrophils (%) (Auto) % (45.0-75.0) Lymphocytes (%) (Auto) % (20.0-45.0) Monocytes (%) (Auto) % (1.0-10.0) Eosinophils (%) (Auto) % (0.0-3.0) Basophils (%) (Auto) % (0.0-2.0) Differential Total Cells Counted 100 Neutrophils % (Manual) 73 % (45-75) Lymphocytes % (Manual) 18 % (20-45) L Monocytes % (Manual) 5 % (1-10) Eosinophils % (Manual) 2 % (0-3) Basophils % (Manual) 2 % (0-2) Band Neutrophils 0 % (0-8) Platelet Estimate Decreased L Platelet Morphology Normal Hypochromasia 1+ Reticulocyte Count 0.7 % (0.5-2.0) Sodium Level 136 MMOL/L (136-145) Potassium Level 3.7 MMOL/L (3.5-5.1) Chloride Level 98 MMOL/L (98-107) Carbon Dioxide Level 27 MMOL/L (21-32) Anion Gap 11 mmol/L (5-15) Blood Urea Nitrogen 13 mg/dL (7-18) Creatinine 5.8 MG/DL (0.55-1.30) H Estimat Glomerular Filtration Rate 14.3 mL/min (>60) Glucose Level 172 MG/DL (74-106) H Calcium Level 9.0 MG/DL (8.5-10.1) Iron Level 44 ug/dL (50-175) L Total Iron Binding Capacity 184 ug/dL (250-450) L Percent Iron Saturation 24 % (15-50) Unsaturated Iron Binding 140 ug/dL (112-346) Ferritin 590 NG/ML (8-388) H Hepatitis A IgM Antibody Pending Hepatitis B Surface Antigen Pending Hepatitis B Core IgM Antibody Pending Hepatitis C Antibody Pending HIV (1&2) Antibody Rapid Preliminary positive Height (Feet): 5 Height (Inches): 9.00 Weight (Pounds): 139 Medications Current Medications Medications (Trade) Dose Ordered Sig/Jo-Ann Route PRN Reason Start Time Stop Time Status Last Admin Dose Admin Acetaminophen (Tylenol) 650 mg Q6H PRN ORAL For Headache OR fever 02/08/20 18:30 03/09/20 16:29 Acetaminophen (Tylenol) 650 mg Q6H PRN ORAL Mild Pain (Pain Scale 1-3) 02/08/20 18:30 03/09/20 18:29 Acetaminophen/ Hydrocodone Bitart ([place] 5/325) 1 tab Q6H PRN ORAL Severe Pain (Pain Scale 7-10) 02/08/20 16:30 02/15/20 16:29 Clonidine HCl (Catapres tab) 0.2 mg Q6HR ORAL 02/08/20 18:00 05/08/20 17:59 02/10/20 11:23 Dextrose (Dextrose 50%) 25 ml Q30M PRN IV Hypoglycemia 02/08/20 14:45 05/08/20 14:44 Dextrose (Dextrose 50%) 50 ml Q30M PRN IV Hypoglycemia 02/08/20 14:45 05/08/20 14:44 Diphenhydramine HCl (Benadryl) 25 mg Q6H PRN IVP Itching 02/08/20 15:00 03/09/20 14:59 02/10/20 13:02 Diphenhydramine HCl (Benadryl) 50 mg ONCE PRN IVP BEFORE HD 02/11/20 06:00 02/11/20 23:59 Hydralazine HCl (Apresoline) 50 mg EVERY 8 HOURS ORAL 02/10/20 14:00 05/08/20 21:59 02/10/20 13:18 Insulin Aspart (NovoLOG) BEFORE MEALS AND HS SUBQ 02/08/20 16:30 05/08/20 16:29 02/10/20 11:24 Insulin Detemir (Levemir) 13 units Q24H SUBQ 02/08/20 18:00 05/08/20 17:59 02/09/20 17:22 Labetalol HCl (Normodyne) 200 mg EVERY 12 HOURS ORAL 02/10/20 21:00 03/09/20 20:59 Nifedipine (Procardia XL) 30 mg DAILY ORAL 02/09/20 09:00 03/10/20 08:59 02/10/20 08:02 Ondansetron HCl (Zofran) 4 mg Q6H PRN IVP Nausea & Vomiting 02/08/20 18:15 03/09/20 18:14 02/08/20 23:36 Tramadol HCl (Ultram) 50 mg Q6H PRN ORAL Moderate Pain (Pain Scale 4-6) 02/08/20 16:30 02/15/20 16:29 Assessment/Plan Status: stable Assessment/Plan: Assessment/Plan Status: stable Assessment/Plan: 29y/o male with DM1, ESRD on HD who presents with chest pain, abd pain, nausea/ vomiting, admitted for mild DKA and for r/o ACS. Plan Monitor telemetry Serial EKG/Troponin Check ESR/CRP Echocardiogram pending Increase hydralazine and nifedipine DASH diet Maintain HD NItro prn chest pain Unlikely from coronary insufficiency - defer stress testing Aggressive glucose control Shamir Stearns MD Feb 10, 2020 14:19
[2020-02-10 16:00] VITALS: BP 162/95
--- NOTE | 2020-02-10 16:29 | Diagnostic Imaging Report ---
Indication: Abdominal pain and distention Technique: Multiplanar grayscale and duplex Doppler ultrasound of the abdomen Comparison: Correlation made to CT of the abdomen and pelvis 07/07/2019 Findings: Hepatic contour appears smooth. Lung the anterior aspect of the right hepatic lobe there is a 2.7 x 1.7 cm echogenic mass. Imaged hepatic veins are patent. Main portal vein is patent with normal direction of flow. The liver is mildly enlarged with the right hepatic lobe measuring 21 cm in length. No gallstones or gallbladder sludge is identified. Gallbladder wall within normal limits for thickness. Sonographic Sabillon sign reported as negative. No intrahepatic or extra hepatic biliary ductal dilatation. Common bile duct measures 2-3 mm diameter. Kidneys demonstrate equivocal increased echogenicity. There is no hydronephrosis or sonographically appreciable renal stone. Spleen and imaged portions of the pancreas unremarkable in appearance. Spleen is normal in size. Imaged portions of the abdominal aorta are normal in caliber. Trace perihepatic and paraspinal fluid is noted. IMPRESSION: * Mild hepatomegaly with the right hepatic lobe measuring 21 cm in length. * Well-circumscribed echogenic mass in the liver measuring 2.7 cm which may represent a hemangioma. Follow-up recommended. * Equivocal increased renal echogenicity. Correlation with renal function tests recommended.
[2020-02-10] MEDS: Levemir Flexpen SUBQ SCH (17:30)
[2020-02-10 20:00] VITALS: BP 189/98
[2020-02-10] MEDS: HydrALAZINE 50mg tab ORAL SCH (21:23)
[2020-02-10] MEDS: HYDROcodone/Acetamin 5/325 tab ORAL PRN (23:59)
[2020-02-11] VITALS: BP 159/97
--- NOTE | 2020-02-11 00:06 | Infectious Diseases Prog Note ---
Assessment/Plan Assessment/Plan Full consult dictated: A) 1) hx HIV - + screen 2) pmh noted 3) allergies -asa P) 1) check cd4/viral load 2) d/w treatment 3) will f/u 4) thank you Subjective Allergies: Coded Allergies: ASPIRIN (Unverified Allergy, Unknown, 02/08/20) Objective Vital Signs Last 24 Hour Vital Signs Date Time Temp Pulse Resp B/P (MAP) Pulse Ox O2 Delivery O2 Flow Rate FiO2 02/10/20 23:58 159/97 02/10/20 21:53 97.7 02/10/20 21:23 189/98 02/10/20 21:09 88 189/98 02/10/20 21:00 Room Air Room Air 02/10/20 20:00 93 02/10/20 20:00 97.6 88 16 189/98 (128) 99 02/10/20 17:29 162/95 02/10/20 16:00 97.7 86 18 162/95 (117) 100 02/10/20 13:40 87 02/10/20 13:18 200/113 02/10/20 12:00 88 02/10/20 11:53 97.8 86 17 200/113 (142) 100 02/10/20 11:23 200/113 02/10/20 09:18 86 177/101 02/10/20 09:00 Room Air Room Air 02/10/20 08:02 86 177/101 02/10/20 08:02 86 177/101 02/10/20 08:00 81 02/10/20 07:49 96.7 86 18 177/101 (126) 100 02/10/20 06:13 168/101 02/10/20 06:13 168/101 02/10/20 04:00 83 02/10/20 04:00 97.1 89 18 166/98 (120) 99 Height (Feet): 5 Height (Inches): 9.00 Weight (Pounds): 139 Microbiology Date/Time Source Procedure Growth Status 02/08/20 12:45 Nasal Nares MRSA Culture - Final NO METHICILLIN RESISTANT STAPH AUREUS... Complete 02/08/20 12:45 Rectum VRE Culture - Final NO VANCOMYCIN RESISTANT ENTEROCOCCUS ... Complete 02/08/20 12:45 Rectum - Final NO CARBAPENEM-RESISTANT ENTEROBACTERI... Complete Laboratory Tests Test 02/10/20 06:05 White Blood Count 2.4 K/UL (4.8-10.8) L Red Blood Count 3.76 M/UL (4.70-6.10) L Hemoglobin 11.3 G/DL (14.2-18.0) L Hematocrit 36.1 % (42.0-52.0) L Mean Corpuscular Volume 96 FL (80-99) Mean Corpuscular Hemoglobin 30.0 PG (27.0-31.0) Mean Corpuscular Hemoglobin Concent 31.3 G/DL (32.0-36.0) L Red Cell Distribution Width 13.9 % (11.6-14.8) Platelet Count 132 K/UL (150-450) L Mean Platelet Volume 7.3 FL (6.5-10.1) Neutrophils (%) (Auto) % (45.0-75.0) Lymphocytes (%) (Auto) % (20.0-45.0) Monocytes (%) (Auto) % (1.0-10.0) Eosinophils (%) (Auto) % (0.0-3.0) Basophils (%) (Auto) % (0.0-2.0) Differential Total Cells Counted 100 Neutrophils % (Manual) 73 % (45-75) Lymphocytes % (Manual) 18 % (20-45) L Monocytes % (Manual) 5 % (1-10) Eosinophils % (Manual) 2 % (0-3) Basophils % (Manual) 2 % (0-2) Band Neutrophils 0 % (0-8) Platelet Estimate Decreased L Platelet Morphology Normal Hypochromasia 1+ Reticulocyte Count 0.7 % (0.5-2.0) Sodium Level 136 MMOL/L (136-145) Potassium Level 3.7 MMOL/L (3.5-5.1) Chloride Level 98 MMOL/L (98-107) Carbon Dioxide Level 27 MMOL/L (21-32) Anion Gap 11 mmol/L (5-15) Blood Urea Nitrogen 13 mg/dL (7-18) Creatinine 5.8 MG/DL (0.55-1.30) H Estimat Glomerular Filtration Rate 14.3 mL/min (>60) Glucose Level 172 MG/DL (74-106) H Calcium Level 9.0 MG/DL (8.5-10.1) Iron Level 44 ug/dL (50-175) L Total Iron Binding Capacity 184 ug/dL (250-450) L Percent Iron Saturation 24 % (15-50) Unsaturated Iron Binding 140 ug/dL (112-346) Ferritin 590 NG/ML (8-388) H Hepatitis A IgM Antibody Pending Hepatitis B Surface Antigen Pending Hepatitis B Core IgM Antibody Pending Hepatitis C Antibody Pending HIV (1&2) Antibody Rapid Preliminary positive Current Medications Medications (Trade) Dose Ordered Sig/Jo-Ann Route PRN Reason Start Time Stop Time Status Last Admin Dose Admin Acetaminophen (Tylenol) 650 mg Q6H PRN ORAL For Headache OR fever 02/08/20 18:30 03/09/20 16:29 Acetaminophen (Tylenol) 650 mg Q6H PRN ORAL Mild Pain (Pain Scale 1-3) 02/08/20 18:30 03/09/20 18:29 Acetaminophen/ Hydrocodone Bitart ([place] 5/325) 1 tab Q6H PRN ORAL Severe Pain (Pain Scale 7-10) 02/08/20 16:30 02/15/20 16:29 02/10/20 23:59 Clonidine HCl (Catapres tab) 0.2 mg Q6HR ORAL 02/08/20 18:00 05/08/20 17:59 02/10/20 23:58 Dextrose (Dextrose 50%) 25 ml Q30M PRN IV Hypoglycemia 02/08/20 14:45 05/08/20 14:44 Dextrose (Dextrose 50%) 50 ml Q30M PRN IV Hypoglycemia 02/08/20 14:45 05/08/20 14:44 Diphenhydramine HCl (Benadryl) 25 mg Q6H PRN IVP Itching 02/08/20 15:00 03/09/20 14:59 02/10/20 18:52 Diphenhydramine HCl (Benadryl) 50 mg ONCE PRN IVP BEFORE HD 02/11/20 06:00 02/11/20 23:59 Hydralazine HCl (Apresoline) 100 mg EVERY 8 HOURS ORAL 02/10/20 22:00 05/08/20 21:59 02/10/20 21:23 Insulin Aspart (NovoLOG) BEFORE MEALS AND HS SUBQ 02/08/20 16:30 05/08/20 16:29 02/10/20 21:18 Insulin Detemir (Levemir) 13 units Q24H SUBQ 02/08/20 18:00 05/08/20 17:59 02/10/20 17:30 Labetalol HCl (Normodyne) 200 mg EVERY 12 HOURS ORAL 02/10/20 21:00 03/09/20 20:59 02/10/20 21:09 Nifedipine (Procardia XL) 90 mg DAILY ORAL 02/11/20 09:00 03/10/20 08:59 Ondansetron HCl (Zofran) 4 mg Q6H PRN IVP Nausea & Vomiting 02/08/20 18:15 03/09/20 18:14 02/10/20 17:29 Tramadol HCl (Ultram) 50 mg Q6H PRN ORAL Moderate Pain (Pain Scale 4-6) 02/08/20 16:30 02/15/20 16:29 02/10/20 21:23 Jayne Mesesr MD Feb 11, 2020 00:06
[2020-02-11] MEDS: DiphenhydrAMINE 50mg/ml Inj IVP PRN (01:44)
[2020-02-11 04:00] VITALS: BP 157/93
[2020-02-11] MEDS: cloNIDine 0.2mg Tab ORAL SCH ×2 (05:50→12:00)
[2020-02-11] MEDS: HydrALAZINE 50mg tab ORAL SCH (05:51)
[2020-02-11] MEDS ORDERED: DiphenhydrAMINE 50mg/ml Inj IVP PRN (06:00)
[2020-02-11] MEDS: NovoLOG Insulin Flexpen SUBQ SCH ×2 (06:05→12:11)
--- NOTE | 2020-02-11 06:32 | Hematology/Onc Progress Note ---
Assessment/Plan Assessment/Plan Assessment and Recs # Pancytopenia -- multiple etiologies could be related to underlying liver disease, medication-induced, infection versus viral syndrome versus underlying bone marrow cause, HIV+++ may be cause --> peripheral smear has been ordered and does not show significant abnormalities --> Medications have been reviewed --> Continue to monitor for improvement, trend cbc --> Hep panel pending, HIV ++ --> US abd ordered to r/o cirrhosis and hepatosplenomegaly --> reverse isolation if ANC is <2000 --> Give neupogen if ANC <1000 --> Transfuse if hgb <7, with 1 unit prbc --> wbc 2.4 --> hgb 11 --> plt 142k --> obtain results of bone marrow biopsy from [facility] # Anemia of chronic disease due to underlying chronic medical issues, multifactorial v Gi bleed --> Anemia workup has been ordered, rule out gi bleed --> No evidence of hemolysis is noted, peripheral smear has been reviewed. --> Hgb goal >7. Transfuse prn. --> Epogen has been started --> Medications have been reviewed --> has had a bone marrow biopsy before --> bone marrow biopsy is not indicated given the other more likely causes # ESRD on HD who presents with chest pain, abd pain, nausea/vomiting, admitted for mild DKA and for r/o ACS. --> as per renal care --> hd as required/prn # Mild DKA- BG 380s on admi, AG 19, bicarb 22; RESOLVED --> as per endo eval # Anion gap metabolic acidosis # DM type 1 --> endo eval, levemir, iss # Atypical chest pain --> per cards # Dvt ppx heparin sq The timing of this note does not necessarily reflect the time of the patient was seen. Greatly appreciate consultation. Subjective HEENT: Denies: no symptoms, eye pain, blurred vision, tearing, double vision, ear pain, ear discharge, nose pain, nose congestion, throat pain, throat swelling, mouth pain, mouth swelling, other Cardiovascular: Denies: no symptoms, chest pain, edema, irregular heart rate, lightheadedness, palpitations, syncope, other Gastrointestinal/Abdominal: Denies: no symptoms, abdomen distended, abdominal pain, black stools, tarry stools, blood in stool, constipated, diarrhea, difficulty swallowing, nausea, poor appetite, poor fluid intake, rectal bleeding , vomiting, other Genitourinary: Denies: no symptoms, burning, discharge, frequency, flank pain, hematuria, incontinence, pain, urgency, other Neurologic/Psychiatric: Denies: no symptoms, anxiety, depressed, emotional problems, headache, numbness, paresthesia, pre-existing deficit, seizure, tingling, tremors, weakness, other Endocrine: Denies: no symptoms, excessive sweating, flushing, intolerance to cold, intolerance to heat, increased hunger, increased thirst, increased urine, unexplained weight gain, unexplained weight loss, other Hematologic/Lymphatic: Denies: no symptoms, anemia, easy bleeding, easy bruising, adenopathy, other Allergies: Coded Allergies: ASPIRIN (Unverified Allergy, Unknown, 02/08/20) Subjective 02/10 no major changes, labs reviewed, 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, will get bone marrow results from [facility] Objective Objective Current Medications Medications (Trade) Dose Ordered Sig/Jo-Ann Route PRN Reason Start Time Stop Time Status Last Admin Dose Admin Acetaminophen (Tylenol) 650 mg Q6H PRN ORAL For Headache OR fever 02/08/20 18:30 03/09/20 16:29 Acetaminophen (Tylenol) 650 mg Q6H PRN ORAL Mild Pain (Pain Scale 1-3) 02/08/20 18:30 03/09/20 18:29 Acetaminophen/ Hydrocodone Bitart ([place] 5/325) 1 tab Q6H PRN ORAL Severe Pain (Pain Scale 7-10) 02/08/20 16:30 02/15/20 16:29 02/10/20 23:59 Clonidine HCl (Catapres tab) 0.2 mg Q6HR ORAL 02/08/20 18:00 05/08/20 17:59 02/11/20 05:50 Dextrose (Dextrose 50%) 25 ml Q30M PRN IV Hypoglycemia 02/08/20 14:45 05/08/20 14:44 Dextrose (Dextrose 50%) 50 ml Q30M PRN IV Hypoglycemia 02/08/20 14:45 05/08/20 14:44 Diphenhydramine HCl (Benadryl) 25 mg Q6H PRN IVP Itching 02/08/20 15:00 03/09/20 14:59 02/11/20 01:44 Diphenhydramine HCl (Benadryl) 50 mg ONCE PRN IVP BEFORE HD 02/11/20 06:00 02/11/20 23:59 Hydralazine HCl (Apresoline) 100 mg EVERY 8 HOURS ORAL 02/10/20 22:00 05/08/20 21:59 02/11/20 05:51 Insulin Aspart (NovoLOG) BEFORE MEALS AND HS SUBQ 02/08/20 16:30 05/08/20 16:29 02/10/20 21:18 Insulin Detemir (Levemir) 13 units Q24H SUBQ 02/08/20 18:00 05/08/20 17:59 02/10/20 17:30 Labetalol HCl (Normodyne) 200 mg EVERY 12 HOURS ORAL 02/10/20 21:00 03/09/20 20:59 02/10/20 21:09 Nifedipine (Procardia XL) 90 mg DAILY ORAL 02/11/20 09:00 03/10/20 08:59 Ondansetron HCl (Zofran) 4 mg Q6H PRN IVP Nausea & Vomiting 02/08/20 18:15 03/09/20 18:14 02/10/20 17:29 Tramadol HCl (Ultram) 50 mg Q6H PRN ORAL Moderate Pain (Pain Scale 4-6) 02/08/20 16:30 02/15/20 16:29 02/10/20 21:23 Last 24 Hour Vital Signs Date Time Temp Pulse Resp B/P (MAP) Pulse Ox O2 Delivery O2 Flow Rate FiO2 02/11/20 05:51 170/93 02/11/20 05:50 170/93 02/11/20 04:00 92 02/11/20 04:00 97.0 88 18 157/93 (114) 99 02/11/20 00:00 86 02/11/20 00:00 98.0 85 20 159/97 (117) 100 02/10/20 23:58 159/97 02/10/20 21:53 97.7 02/10/20 21:23 189/98 02/10/20 21:09 88 189/98 02/10/20 21:00 Room Air Room Air 02/10/20 20:00 93 02/10/20 20:00 97.6 88 16 189/98 (128) 99 02/10/20 17:29 162/95 02/10/20 16:00 97.7 86 18 162/95 (117) 100 02/10/20 13:40 87 20 13:18 200/113 02/10/20 12:00 88 02/10/20 11:53 97.8 86 17 200/113 (142) 100 02/10/20 11:23 200/113 02/10/20 09:18 86 177/101 02/10/20 09:00 Room Air Room Air 02/10/20 08:02 86 177/101 02/10/20 08:02 86 177/101 02/10/20 08:00 81 02/10/20 07:49 96.7 86 18 177/101 (126) 100 02/10/20 06:13 168/101 02/10/20 06:13 168/101 02/10/20 04:00 83 02/10/20 04:00 97.1 89 18 166/98 (120) 99 02/10/20 00:00 82 02/10/20 00:00 97.4 85 20 159/96 (117) 98 02/09/20 23:50 159/96 02/09/20 21:31 141/85 02/09/20 21:00 Room Air Room Air 02/09/20 20:36 96.9 02/09/20 20:03 78 180/101 02/09/20 20:00 96.4 81 18 180/101 (127) 98 02/09/20 17:20 133/78 02/09/20 16:00 81 02/09/20 15:53 96.9 85 18 133/78 (96) 100 02/09/20 15:23 80 169/97 (121) 02/09/20 14:00 137/78 02/09/20 12:00 77 02/09/20 12:00 97.5 133 18 187/104 (131) 100 02/09/20 11:32 187/104 02/09/20 11:31 130 187/104 02/09/20 09:00 Room Air Room Air 02/09/20 09:00 83 180/110 02/09/20 08:00 83 02/09/20 08:00 96.8 88 18 180/110 (133) 100 Labs Test 02/08/20 09:00 02/08/20 17:00 02/08/20 23:20 02/09/20 05:33 White Blood Count 4.0 K/UL (4.8-10.8) 2.7 K/UL (4.8-10.8) Red Blood Count 3.80 M/UL (4.70-6.10) 3.74 M/UL (4.70-6.10) Hemoglobin 11.5 G/DL (14.2-18.0) 11.4 G/DL (14.2-18.0) Hematocrit 36.7 % (42.0-52.0) 35.7 % (42.0-52.0) Mean Corpuscular Volume 97 FL (80-99) 96 FL (80-99) Mean Corpuscular Hemoglobin 30.3 PG (27.0-31.0) 30.4 PG (27.0-31.0) Mean Corpuscular Hemoglobin Concent 31.3 G/DL (32.0-36.0) 31.8 G/DL (32.0-36.0) Red Cell Distribution Width 13.8 % (11.6-14.8) 14.1 % (11.6-14.8) Platelet Count 145 K/UL (150-450) 143 K/UL (150-450) Mean Platelet Volume 7.8 FL (6.5-10.1) 7.1 FL (6.5-10.1) Neutrophils (%) (Auto) 73.5 % (45.0-75.0) % (45.0-75.0) Lymphocytes (%) (Auto) 16.8 % (20.0-45.0) % (20.0-45.0) Monocytes (%) (Auto) 7.1 % (1.0-10.0) % (1.0-10.0) Eosinophils (%) (Auto) 0.6 % (0.0-3.0) % (0.0-3.0) Basophils (%) (Auto) 2.0 % (0.0-2.0) % (0.0-2.0) Sodium Level 131 MMOL/L (136-145) 134 MMOL/L (136-145) 134 MMOL/L (136-145) Potassium Level 3.2 MMOL/L (3.5-5.1) 2.8 MMOL/L (3.5-5.1) 3.2 MMOL/L (3.5-5.1) Chloride Level 90 MMOL/L (98-107) 95 MMOL/L (98-107) 95 MMOL/L (98-107) Carbon Dioxide Level 22 MMOL/L (21-32) 27 MMOL/L (21-32) 27 MMOL/L (21-32) Anion Gap 19 mmol/L (5-15) 12 mmol/L (5-15) 12 mmol/L (5-15) Blood Urea Nitrogen 13 mg/dL (7-18) 14 mg/dL (7-18) 17 mg/dL (7-18) Creatinine 4.8 MG/DL (0.55-1.30) 5.2 MG/DL (0.55-1.30) 6.4 MG/DL (0.55-1.30) Estimat Glomerular Filtration Rate 17.8 mL/min (>60) 16.2 mL/min (>60) 12.7 mL/min (>60) Glucose Level 389 MG/DL (74-106) 146 MG/DL (74-106) 113 MG/DL (74-106) Calcium Level 8.8 MG/DL (8.5-10.1) 8.8 MG/DL (8.5-10.1) 9.0 MG/DL (8.5-10.1) Magnesium Level 2.0 MG/DL (1.8-2.4) 2.2 MG/DL (1.8-2.4) Total Bilirubin 0.6 MG/DL (0.2-1.0) 0.3 MG/DL (0.2-1.0) Aspartate Amino Transf (AST/SGOT) 32 U/L (15-37) 25 U/L (15-37) Alanine Aminotransferase (ALT/SGPT) 22 U/L (12-78) 23 U/L (12-78) Alkaline Phosphatase 75 U/L (46-116) 62 U/L (46-116) Total Protein 7.2 G/DL (6.4-8.2) 6.4 G/DL (6.4-8.2) Albumin 3.7 G/DL (3.4-5.0) 3.4 G/DL (3.4-5.0) Globulin 3.5 g/dL Albumin/Globulin Ratio 1.1 (1.0-2.7) Lipase 55 U/L (73-393) Acetone Level Positive-small (NEGATIVE) Venous Blood pH 7.422 Venous Blood Partial Pressure CO2 38.7 Venous Blood Partial Pressure O2 87.6 Venous Blood HCO3 24.7 Venous Blood Total Carbon Dioxide 38.7 Venous Blood Base Excess 0.3 Venous Blood Carboxyhemoglobin 0.5 % (0.5-1.5) Methemoglobin 0.2 Troponin I 0.018 ng/mL (0.000-0.056) 0.020 ng/mL (0.000-0.056) 0.011 ng/mL (0.000-0.056) Hemoglobin A1c 11.2 % (4.3-6.0) Phosphorus Level 4.1 MG/DL (2.5-4.9) Direct Bilirubin 0.1 MG/DL (0.0-0.3) Triglycerides Level 74 MG/DL (30-150) Cholesterol Level 271 MG/DL (< 200) LDL Cholesterol 127 mg/dL (<100) HDL Cholesterol 116 MG/DL (40-60) Cholesterol/HDL Ratio 2.3 (3.3-4.4) Thyroid Stimulating Hormone (TSH) 1.925 uiU/mL (0.358-3.740) Test 02/10/20 00:00 02/10/20 06:05 White Blood Count 2.4 K/UL (4.8-10.8) Red Blood Count 3.76 M/UL (4.70-6.10) Hemoglobin 11.3 G/DL (14.2-18.0) Hematocrit 36.1 % (42.0-52.0) Mean Corpuscular Volume 96 FL (80-99) Mean Corpuscular Hemoglobin 30.0 PG (27.0-31.0) Mean Corpuscular Hemoglobin Concent 31.3 G/DL (32.0-36.0) Red Cell Distribution Width 13.9 % (11.6-14.8) Platelet Count 132 K/UL (150-450) Mean Platelet Volume 7.3 FL (6.5-10.1) Neutrophils (%) (Auto) % (45.0-75.0) Lymphocytes (%) (Auto) % (20.0-45.0) Monocytes (%) (Auto) % (1.0-10.0) Eosinophils (%) (Auto) % (0.0-3.0) Basophils (%) (Auto) % (0.0-2.0) Differential Total Cells Counted 100 Neutrophils % (Manual) 73 % (45-75) Lymphocytes % (Manual) 18 % (20-45) Monocytes % (Manual) 5 % (1-10) Eosinophils % (Manual) 2 % (0-3) Basophils % (Manual) 2 % (0-2) Band Neutrophils 0 % (0-8) Platelet Estimate Decreased Platelet Morphology Normal Hypochromasia 1+ Reticulocyte Count 0.7 % (0.5-2.0) Sodium Level 136 MMOL/L (136-145) Potassium Level 3.7 MMOL/L (3.5-5.1) Chloride Level 98 MMOL/L (98-107) Carbon Dioxide Level 27 MMOL/L (21-32) Anion Gap 11 mmol/L (5-15) Blood Urea Nitrogen 13 mg/dL (7-18) Creatinine 5.8 MG/DL (0.55-1.30) Estimat Glomerular Filtration Rate 14.3 mL/min (>60) Glucose Level 172 MG/DL (74-106) Calcium Level 9.0 MG/DL (8.5-10.1) Iron Level 44 ug/dL (50-175) Total Iron Binding Capacity 184 ug/dL (250-450) Percent Iron Saturation 24 % (15-50) Unsaturated Iron Binding 140 ug/dL (112-346) Ferritin 590 NG/ML (8-388) HIV (1&2) Antibody Rapid Preliminary positive Height (Feet): 5 Height (Inches): 9.00 Weight (Pounds): 139 Objective Physical Exam: Vitals: reviewed General: NAD HEENT: nc, at Neck: supple Chest: clear breath sounds bilaterally Cardiovascular: RRR, no s3, s4 Abdomen: soft, nontender, nd Extremities: no cce, normal range of motion Neuro: alert and oriented Jose Jernigan MD Feb 11, 2020 06:32
[2020-02-11 07:17] LABS: HEMATOCRIT 35.8 % (42.0-52.0); HEMOGLOBIN 11.3 G/DL (14.2-18.0); MEAN CORPUSCULAR VOLUME 96 FL (80-99); PLATELET COUNT 134 K/UL (150-450); RED BLOOD COUNT 3.74 M/UL (4.70-6.10); RED CELL DISTRIBUTION WIDTH 14.2 % (11.6-14.8); WHITE BLOOD COUNT 2.4 K/UL (4.8-10.8)
[2020-02-11 08:00] VITALS: BP 130/85
[2020-02-11] MEDS: HYDROcodone/Acetamin 5/325 tab ORAL PRN (10:30)
--- NOTE | 2020-02-11 10:49 | Nephrology Progress Note ---
Assessment/Plan Status: stable Assessment/Plan: A/P 1) ESRD - TTS - HD today. OK for DC from renal point 2) Hypokalemia- corrected 3) ACS/Chest Pain- cardiology reccs noted - ECHO pending 4) DM- mgmt per PCP 5) Anemia of CKD- Hgb >10, no need for EPO Subjective Date patient seen: Feb 11, 2020 Time patient seen: 10:43 ROS Limited/Unobtainable: No Allergies: Coded Allergies: ASPIRIN (Unverified Allergy, Unknown, 02/08/20) Subjective Patient feeling better in no overt distress. To have HD today Objective Last 24 Hour Vital Signs Date Time Temp Pulse Resp B/P (MAP) Pulse Ox O2 Delivery O2 Flow Rate FiO2 02/11/20 08:00 97.5 80 18 130/85 (100) 99 02/11/20 05:51 170/93 02/11/20 05:50 170/93 02/11/20 04:00 92 02/11/20 04:00 97.0 88 18 157/93 (114) 99 02/11/20 00:00 86 02/11/20 00:00 98.0 85 20 159/97 (117) 100 02/10/20 23:58 159/97 02/10/20 21:53 97.7 02/10/20 21:23 189/98 02/10/20 21:09 88 189/98 02/10/20 21:00 Room Air Room Air 02/10/20 20:00 93 02/10/20 20:00 97.6 88 16 189/98 (128) 99 02/10/20 17:29 162/95 02/10/20 16:00 97.7 86 18 162/95 (117) 100 02/10/20 13:40 87 02/10/20 13:18 200/113 02/10/20 12:00 88 02/10/20 11:53 97.8 86 17 200/113 (142) 100 02/10/20 11:23 200/113 Laboratory Tests 02/11/20 06:15: White Blood Count [Pending], Red Blood Count 3.74L, Hemoglobin 11.3L, Hematocrit 35.8L, Mean Corpuscular Volume 96, Mean Corpuscular Hemoglobin 30.2, Mean Corpuscular Hemoglobin Concent 31.5L, Red Cell Distribution Width 14.2, Platelet Count 134L, Mean Platelet Volume 8.5, Neutrophils (%) (Auto) , Lymphocytes (%) (Auto) , Monocytes (%) (Auto) , Eosinophils (%) (Auto) , Basophils (%) (Auto) , Differential Total Cells Counted 100, Neutrophils % ( Manual) 56, Lymphocytes % (Manual) 32, Monocytes % (Manual) 7, Eosinophils % ( Manual) 4H, Basophils % (Manual) 1, Band Neutrophils 0, Lymphocytes [Pending], Platelet Estimate DecreasedL, Platelet Morphology Normal, Hypochromasia 1+, Anisocytosis 1+, Percent CD3 Cells [Pending], Absolute CD3 Count [Pending], Percent CD4 Cells [Pending], Absolute CD4 Count [Pending], T-Lymphocyte CD4/CD8 Ratio [Pending], Percent CD8 Cells [Pending], Absolute CD8 Count [Pending], HIV- 1 RNA (PCR) log10 Value [Pending], HIV-1 RNA Ultraquantitative (PCR) [Pending] Height (Feet): 5 Height (Inches): 9.00 Weight (Pounds): 147 General Appearance: WD/WN, no apparent distress EENT: normal ENT inspection Neck: normal alignment Cardiovascular: normal rate Respiratory/Chest: lungs clear, normal breath sounds Abdomen: non tender, soft Edema: no edema noted Arm (L), no edema noted Arm (R), no edema noted Leg (L), no edema noted Leg (R), no edema noted Pedal (L), no edema noted Pedal (R), no edema noted Generalized Arsalan Rhodes MD Feb 11, 2020 10:49
--- NOTE | 2020-02-11 11:13 | Cardiology Progress Note ---
Assessment/Plan Status: stable Assessment/Plan Assessment/Plan Status: stable Assessment/Plan: 29y/o male with DM1, ESRD on HD who presents with chest pain, abd pain, nausea/ vomiting, admitted for mild DKA and for r/o ACS. Plan Monitor telemetry Serial EKG/Troponin Check ESR/CRP Echocardiogram reviewed, continue volume removal and monitor TR, no indication for tricuspid clip Increased hydralazine and nifedipine - blood pressure controlled DASH diet Maintain HD NItro prn chest pain Unlikely from coronary insufficiency - defer stress testing Aggressive glucose control Subjective Cardiovascular: Reports: no symptoms Respiratory: Reports: no symptoms Gastrointestinal/Abdominal: Reports: no symptoms Genitourinary: Reports: no symptoms Subjective No acute events, blood pressures stable Echo reviewed, normal LV function moderate TR and mild PAH Objective Last 24 Hour Vital Signs Date Time Temp Pulse Resp B/P (MAP) Pulse Ox O2 Delivery O2 Flow Rate FiO2 02/11/20 08:00 97.5 80 18 130/85 (100) 99 02/11/20 05:51 170/93 02/11/20 05:50 170/93 02/11/20 04:00 92 02/11/20 04:00 97.0 88 18 157/93 (114) 99 02/11/20 00:00 86 02/11/20 00:00 98.0 85 20 159/97 (117) 100 02/10/20 23:58 159/97 02/10/20 21:53 97.7 02/10/20 21:23 189/98 02/10/20 21:09 88 189/98 02/10/20 21:00 Room Air Room Air 02/10/20 20:00 93 02/10/20 20:00 97.6 88 16 189/98 (128) 99 02/10/20 17:29 162/95 02/10/20 16:00 97.7 86 18 162/95 (117) 100 02/10/20 13:40 87 02/10/20 13:18 200/113 02/10/20 12:00 88 02/10/20 11:53 97.8 86 17 200/113 (142) 100 02/10/20 11:23 200/113 General Appearance: no apparent distress, alert EENT: PERRL/EOMI, normal ENT inspection, TMs normal, pharynx normal Neck: non-tender, normal alignment, supple, normal inspection, no JVD Rhythm: NSR Cardiovascular: normal peripheral pulses, normal rate Respiratory/Chest: chest wall non-tender, lungs clear, normal breath sounds, no respiratory distress Abdomen: normal bowel sounds, non tender Extremities: normal range of motion, non-tender, normal inspection, no calf tenderness 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, no motor/sensory deficits Laboratory Tests Test 02/11/20 06:15 White Blood Count Pending Red Blood Count 3.74 M/UL (4.70-6.10) L Hemoglobin 11.3 G/DL (14.2-18.0) L Hematocrit 35.8 % (42.0-52.0) L Mean Corpuscular Volume 96 FL (80-99) Mean Corpuscular Hemoglobin 30.2 PG (27.0-31.0) Mean Corpuscular Hemoglobin Concent 31.5 G/DL (32.0-36.0) L Red Cell Distribution Width 14.2 % (11.6-14.8) Platelet Count 134 K/UL (150-450) L Mean Platelet Volume 8.5 FL (6.5-10.1) Neutrophils (%) (Auto) % (45.0-75.0) Lymphocytes (%) (Auto) % (20.0-45.0) Monocytes (%) (Auto) % (1.0-10.0) Eosinophils (%) (Auto) % (0.0-3.0) Basophils (%) (Auto) % (0.0-2.0) Differential Total Cells Counted 100 Neutrophils % (Manual) 56 % (45-75) Lymphocytes % (Manual) 32 % (20-45) Monocytes % (Manual) 7 % (1-10) Eosinophils % (Manual) 4 % (0-3) H Basophils % (Manual) 1 % (0-2) Band Neutrophils 0 % (0-8) Lymphocytes Pending Platelet Estimate Decreased L Platelet Morphology Normal Hypochromasia 1+ Anisocytosis 1+ Percent CD3 Cells Pending Absolute CD3 Count Pending Percent CD4 Cells Pending Absolute CD4 Count Pending T-Lymphocyte CD4/CD8 Ratio Pending Percent CD8 Cells Pending Absolute CD8 Count Pending HIV-1 RNA (PCR) log10 Value Pending HIV-1 RNA Ultraquantitative (PCR) Pending Microbiology Date/Time Source Procedure Growth Status 02/08/20 12:45 Nasal Nares MRSA Culture - Final NO METHICILLIN RESISTANT STAPH AUREUS... Complete 02/08/20 12:45 Rectum VRE Culture - Final NO VANCOMYCIN RESISTANT ENTEROCOCCUS ... Complete 02/08/20 12:45 Rectum - Final NO CARBAPENEM-RESISTANT ENTEROBACTERI... Complete Shamir Stearns MD Feb 11, 2020 11:12
[2020-02-11 12:00] VITALS: BP 143/89
--- NOTE | 2020-02-11 13:35 | Discharge Instructions ---
Discharge Instructions Discharge Instructions Follow up with: Your primary Doctor at [facility] within 1-2 weeks Diet: 2 GM sodium (low sodium), renal (80g protein, 2GM), renal diabetic Resume Normal Activity?: Yes Activity: resume normal activities For Congestive Heart Failure Reminder Report to your physician any weight gain of 5 pounds or more in one week. Izabela Fisher DO Feb 11, 2020 13:35
[2020-02-11] MEDS ORDERED: NIFEDIPINE ER30 M2 ORAL (13:48)
[2020-02-11] MEDS ORDERED: HUMALOG100 UNIT/4 SUBQ (13:48)
[2020-02-11] MEDS ORDERED: LANTUS SOL100 UNIT/1 SUBQ (13:48)
[2020-02-11] MEDS ORDERED: CATAPRES0.2 MG ORAL (13:48)
[2020-02-11] MEDS ORDERED: HYDRALAZINE HCL25 M1 ORAL (13:48)
[2020-02-11] MEDS ORDERED: LABETALOL HCL100 MG ORAL (13:48)
[2020-02-11] MEDS ORDERED: TRAMADOL HCL50 MG ORAL (13:48)
--- NOTE | 2020-02-11 16:41 | Discharge Summary ---
Discharge Summary Hospital Course Date of Admission Feb 08, 2020 at 12:11 Date of Discharge Feb 11, 2020 at 16:12 Admitting Diagnosis chest pain, dehydration, diabetes I, ESRD Reason for Hospitalization: ACS work-up, DKA HPI Yasmany Wilson is a 29 year old male who was admitted on Feb 08, 2020 at 12: 11 for Chest Pain,Dehydration,Diabetes I,End Stage Renal Consultations Cardiology, infectious disease, hematology oncology, nephrology Hospital Course 29y/o male with DM1, ESRD on HD who presents with chest pain, abd pain, nausea/ vomiting, admitted for mild DKA and for r/o ACS. On admission patient's glucose was 389, anion gap of 19, BG 36. Patient was treated with insulin with improvement in glucose. Patient was evaluated by nephrology and continued on hemodialysis while hospitalized. Cardiac work-up showed negative troponins, no significant findings on EKG, TTE with EF of 55 to 60%. Patient has been noted to be HIV positive and noncompliant with medications. He was evaluated by infectious disease, and educated to follow-up with outpatient HIV specialist as well. patient also had pancytopenia and abdominal pain, followed up with abdominal ultrasound that showed hepatic mass likely hemangioma. Patient was advised to follow-up as outpatient with repeat abdominal ultrasound in 3 months. Patient was discharged home in stable condition with medications sent to his preferred pharmacy: [facility] [address] # Mild DKA- BG 380s on admi, AG 19, bicarb 22; RESOLVED # Anion gap metabolic acidosis # DM type 1 - s/p insulin gtt in ED w/ improvement in BG, bicarb and AG - SSI - Levemir 13 units daily - Diabetic diet - Check A1C - Consider endo eval # Atypical chest pain - Cardiology consulted - Trend trop: neg x 3 - Check TTE: Reviewed # ESRD on HD - Renal consulted - HD per renal - Trend BMP # Anemia in ESRD #Pancytopenia -Consult hematology oncology - Trend CBC # History of HIV -Infectious disease consult DVT Prophylaxis: SCD, HSQ Code Status: Full Hospital Classification Declaration: Based on this initial evaluation, and depending on the patient's clinical course, I anticipate that this patient will require hospitalization for 1-2 days for mild DKA, r/o ACS, and close respiratory/hemodynamic monitoring. Disposition: Once the patient is stable to leave the hospital, I anticipate the patient will likely be discharged to the following environment: home I spent 36 minutes on this patient's case, and 20 minutes were dedicated to counseling and/or care coordination. Discussed with patient/family, nursing staff, cardiology, renal regarding clinical status, treatment course, and disposition planning. Time of note may not reflect time of encounter. Discharge Medications New Medications: Tramadol Hcl* (Ultram*) 50 Mg Tablet 50 MG ORAL Q6H PRN PRN for 30 Days, #20 TAB 0 Refills Changed Medications: Hydralazine Hcl* (Hydralazine Hcl*) 25 Mg Tablet 50 MG ORAL EVERY 8 HOURS for 30 Days, #180 TAB 0 Refills (Changed from: 25 MG) Insulin Glargine (Lantus) 100 Unit/1 Ml Insuln.pen 13 UNIT SUBQ BEDTIME for 30 Days, #1 EA 0 Refills (Changed from: 0 ) Insulin Lispro (Humalog) 100 Unit/1 Ml Cartridge 4 UNITS SUBQ TID with meals for 30 Days, #1 UNITS 0 Refills (Changed from: 0 ) Labetalol Hcl* (Normodyne*) 100 Mg Tablet 200 MG ORAL EVERY 12 HOURS for 30 Days, #120 TAB (Changed from: 100 MG) Continued Medications: Clonidine Hcl* (Catapres*) 0.2 Mg Tablet 0.2 MG ORAL Q6HR for 30 Days, #120 TAB 0 Refills (This prescription has been renewed) Nifedipine Er* (Nifedipine Er*) 30 Mg Tab.er.24 30 MG ORAL DAILY for 30 Days, #30 TAB (This prescription has been renewed) Discharge Condition Upon Discharge: stable Discharge Vital Signs Last Vital Signs Date Time Temp Pulse Resp B/P (MAP) Pulse Ox O2 Delivery O2 Flow Rate FiO2 02/11/20 12:00 98.6 83 20 143/89 (107) 98 02/11/20 09:00 Room Air Room Air Discharge Disposition Patient was discharged to Home Discharge Diagnoses: (1) Liver hemangioma (2) Pancytopenia (3) HIV (human immunodeficiency virus infection) (4) Diabetic ketoacidosis (5) Noncompliance (6) Uncontrolled hypertension (7) Type 1 diabetes (8) Abdominal pain (9) ESRD (end stage renal disease) Discharge Instructions Discharge Instructions Follow up with: Your primary Doctor at [facility] within 1-2 weeks Activity: resume normal activities Izabela Fisher DO Feb 11, 2020 16:41
[2020-02-11] MEDS ORDERED: Labetalol 200mg tab ORAL SCH (21:00)
--- NOTE | 2020-02-12 13:00 | Consultation ---
DATE OF CONSULTATION: 02/10/2020 INFECTIOUS DISEASE CONSULTATION CONSULTING PHYSICIAN: Jayne Messer M.D. REFERRING PHYSICIAN: Phillip Gurrola D.O. ATTENDING PHYSICIAN: Sushila Crooks M.D. REASON FOR CONSULTATION: History of HIV. CHIEF COMPLAINT: The patient's chief complaint coming into the hospital was chest pain and dehydration. HISTORY OF PRESENT ILLNESS: This is a very pleasant 29-year-old male, who has a history of HIV per the records. I discussed with Dr. Izabela Fisher and the patient has been noncompliant. HIV testing at [facility] was positive. Infectious Disease consultation was requested for antiviral treatment. It is unclear what the treatment modality the patient was on. As discussed, he has a history of noncompliance per discussion with Dr. Fisher. I have ordered a CD4 and viral load to see the status of HIV and then we will discuss treatment modalities. MAR was noted. Orders were noted. Notes and records were reviewed. The patient had no symptoms consistent with COVID. He had no fevers or respiratory symptoms. As discussed, he came in with dehydration and chest pain. REVIEW OF SYSTEMS: CONSTITUTIONAL: The patient has no fever, chills, or night sweats. HEAD AND NECK: No head pain or neck pain. CARDIAC: He did come in with chest pain, but currently no chest pain. GASTROINTESTINAL: No nausea, vomiting, or diarrhea. GENITOURINARY: He has renal failure. No CVA tenderness. PULMONARY: No significant congestion, shortness of breath, cough, or secretions. SKIN: No rash. EXTREMITIES: No extremity pain. NEUROLOGIC: No seizures. No dysphagia, thrush, headache, change in vision, neck stiffness, fever, chills, or night sweats. PAST MEDICAL HISTORY: Includes the following. The patient has a past medical history of diabetes, end-stage renal disease, hemodialysis, HIV positive, history of DKA in the past, history of atypical chest pain, anemia, unclear if he has history of hypertension. As discussed, history of HIV per the records. ALLERGIES: Aspirin. No antibiotic allergies. SOCIAL HISTORY: Negative for smoking, alcohol, or drug abuse. FAMILY HISTORY: Noncontributory. Negative for exposure to tuberculosis or cancer. MEDICATIONS: Upon reviewing the MAR, he has been on Epogen, labetalol, nifedipine, hydralazine, acetaminophen, Zofran, clonidine, insulin, tramadol, hydrocodone, and diphenhydramine. Outside medications were noted and reconciliated. He was not on antiviral therapy coming in, it looks like per reviewing the outside records. PHYSICAL EXAMINATION: VITAL SIGNS: Temperature when I saw him was 97.7, pulse 88, blood pressure 189/98, respiratory rate 20, and saturating 100%. GENERAL: Alert and responsive, in no acute distress. He is oriented. HEAD AND NECK: Oral exam, no thrush. Eye exam, no icterus. Normocephalic. Neck is supple. HEART: Regular. No gallop or murmur. ABDOMEN: Soft. Positive bowel sounds. Nontender. LUNGS: Clear bilaterally. No rhonchi or rales. SKIN: No rash. MUSCULOSKELETAL: No effusion. Legs are without cellulitis. PERIPHERAL VASCULAR: No cyanosis. No septic arthritis or gangrene. GENITOURINARY: No Gill. He is on hemodialysis. No CVA tenderness or Gill. NEUROLOGIC: Intact and nonfocal. Alert and oriented x3. LINE SITES: Without phlebitis. LABORATORY DATA: Laboratory data is as follows. White count 2.4, hemoglobin 11.3, and platelet count 132. Creatinine 5.8. Await CD4 and viral load which is pending and HIV preliminary test was positive. MRSA and VRE screen negative. IMAGING STUDIES: Chest x-ray showed no acute cardiopulmonary disease. ASSESSMENT AND PLAN: 1. The patient has HIV antibody test positive. Per discussion with , the patient has history of HIV. It is unclear if the patient has been on antiviral therapy. Per the discussion with Dr. Fisher, he has been noncompliant. I do not know his immune status at this time. We will check his CD4 viral load, which I ordered. The patient will eventually need antiviral therapy for improved outcome, again unclear how compliant he has been in the past and exactly what medications he has been on. In discussion with Dr. Fisher since the patient will be discharged soon, I told him to follow up with his primary HIV MD and await the CD4 and viral load results, which I ordered. Dr. Fisher agrees is to tell the patient to follow up with his primary HIV MD. 2. The patient came in with chest pain. Workup per primary care team and consultants. 3. Diabetes. 4. Blood sugar treatment per primary care team. 5. End-stage renal disease, on hemodialysis. 6. Leukopenia, anemia, and thrombocytopenia. 7. DKA. 8. Atypical chest pain. 9. Anemia. 10. Dialysis treatment per Nephrology for end-stage renal disease. 11. Allergic to aspirin. 12. Social history is negative. 13. Family history is noncontributory. 14. MAR was noted. 15. Case was discussed with RN. Jayne Messer M.D. DR: THIAGO JOB#: [id number] CC: FRANTZ
[2020-02-12] MEDS ORDERED: Epoetin Alfa-EPBX(ESRD on dialysis)3000 units/ml vial SUBQ SCH (21:00)
== END 2020-02-11 16:12 | disposition home or self-care (01) | DRG 637 ==
LOC: EDBD 08:43 → EMR 09:30 → 2E 12:11 → EDBEDREQ 12:28 → 2E 14:56
DX: E10.10 Type 1 diabetes mellitus with ketoacidosis without coma (principal); N18.6 End stage renal disease; I24.9 Acute ischemic heart disease, unspecified; D61.818 Other pancytopenia; E10.22 Type 1 diabetes mellitus with diabetic chronic kidney disease; E87.6 Hypokalemia; D63.1 Anemia in chronic kidney disease; Z79.82 Long term (current) use of aspirin; Z79.4 Long term (current) use of insulin; R07.89 Other chest pain; D18.09 Hemangioma of other sites
CPT/HCPCS: 36415; 71045; 76700; 80048; 80053; 80061; 80076; 82009; 82010; 82728; 82803; 82962; 83036; 83540; 83550; 83690; 83735; 84100; 84443; 84484; 85007; 85025; 85044; 86360; 86689; 86703; 86705; 86706; 86709; 86803; 87081; 87340; 87536; 93005; 93306; 96365; 96366; 96375; 99291; J1815; J2405; J8499; S5561

== ENCOUNTER 2020-04-24 17:41 | Inpatient (IN) | payer MEDICARE, OTHER ==
[~2020-04-24] VITALS: Ht 175.3 cm; Wt 72.2 kg
[2020-04-24] MEDS: HydrALAZINE 25mg tab ORAL SCH (01:33)
[~2020-04-24 17:41] MED LIST changes: +TRAMADOL HCL50 MG ORAL
[2020-04-24 18:00] VITALS: BP 199/109
[2020-04-24] MEDS ORDERED: Morphine Sulfate 4mg/ml Inj (IV USE ONLY) IVP ONE ×2 (18:00→20:15)
[2020-04-24] MEDS ORDERED: Nitroglycerin 2% oint pkt TOPIC ONE (18:00)
--- NOTE | 2020-04-24 18:00 | Emergency Room Report ---
History of Present Illness General Chief Complaint: Abdominal Pain Source: Patient Present Illness HPI Disclaimer: Please note that this report is being documented using [employer] technology. This can lead to erroneous entry secondary to incorrect interpretation by the dictating instrument. HPI: 29-year-old male history of hypertension, diabetes, HIV, ESRD on hemodialysis TRS presents for evaluation of abdominal pain and vomiting. Symptoms began this morning. He states he had several episodes of vomiting unable to tolerate his antihypertensive medications this morning. He reports abdominal pain is diffuse and cramping. Denies diarrhea, flank pain, fever, chills, chest pain or shortness of breath. Denies recent cough, congestion. Last hemodialysis was yesterday and received a full treatment. He has a prior history of DKA. Denies drug or alcohol use PMH: HIV, hypertension, diabetes, ESRD PSH: Fistula Allergies: Aspirin Social Hx: Denied drug or alcohol use Allergies: Coded Allergies: ASPIRIN (Unverified Allergy, Unknown, 02/08/20) COVID-19 Screening Contact w/high risk pt: No Recent Travel to affected area: No Experienced COVID-19 symptoms?: No COVID-19 Testing performed [employer]: No Nursing Documentation-PMH Past Medical History: No History, Except For Hx Cardiac Problems: No - HIV positive Hx Hypertension: Yes Hx Diabetes: Yes - type 1 Hx Cancer: No Hx Gastrointestinal Problems: No Hx Dialysis: Yes - pt on HD /// shunt on upper right arm Hx Neurological Problems: No Review of Systems All Other Systems: negative except mentioned in HPI Physical Exam Vital Signs Date Time Temp Pulse Resp B/P (MAP) Pulse Ox O2 Delivery O2 Flow Rate FiO2 04/24/20 17:33 98.2 110 20 223/122 (155) 98 Room Air General: Awake and alert, appears uncomfortable, hypertensive HEENT: NC/AT. EOMI. Cardiovascular: RRR. S1 and S2 normal. Fistula palpable thrill right upper extremity Resp: Normal work of breathing. No cough, wheezing or crackles appreciated Abdomen: Abdomen is soft, nondistended. Diffusely tender to palpation. Skin: Intact. No abrasions, laceration or rash over the exposed skin MSK: Normal tone and bulk. Moving all extremities. No obvious deformity. Neuro: Awake and alert. Mentating appropriately. Procedures Critical Care Time Critical Care Time Total critical care time: Approximately 45 minutes Due to a high probability of clinically significant, life threatening deterioration, the patient required the highest level of preparedness to intervene emergently and I personally spent this critical care time directly and personally managing the patient. This critical care time included obtaining a history, examining the patient, pulse oximetry, ordering and reviewing studies , ordering treatments, evaluating response to treatment and updating management plan as needed, frequent reassessment and discussion with other providers as well as arranging for ultimate disposition. This critical to care time was performed to assess and manage the high probability of life-threatening deterioration that could result in multiorgan failure. This critical care time is separate from the separately billable procedures and treating other patients. Medical Decision Making Diagnostic Impression: Primary Impression: Abdominal pain Additional Impressions: ESRD (end stage renal disease) Hypertensive urgency Hyperglycemia ER Course 29-year-old male presents for evaluation abdominal pain vomiting and hypertension. Differential includes is not limited to electrolyte abnormality, DKA, fluid overload, gastritis, gastritis, pancreatitis, cholecystitis, appendicitis, bowel obstruction, medication noncompliance, intoxication among others. Pressures elevated, started nitroglycerin, labetalol, hydralazine. Blood pressures improving but remain elevated. Patient continues to vomit in the ED. Continuing antiemetics. CT of the abdomen was obtained does not show evidence of acute obstruction or other major findings. Labs do not show evidence of DKA. Potassium within normal limits. Patient main symptomatic. Urinalysis shows bacteria but no inflammatory markers, few white cells. May be a contaminant. Will send for culture. Will admit for hypertensive urgency intractable vomiting to panel physician, Dr. Ibarra Laboratory Tests Test 04/24/20 18:05 04/24/20 18:11 White Blood Count 6.4 K/UL (4.8-10.8) Red Blood Count 2.90 M/UL (4.70-6.10) L Hemoglobin 9.2 G/DL (14.2-18.0) L Hematocrit 29.9 % (42.0-52.0) L Mean Corpuscular Volume 103 FL (80-99) H Mean Corpuscular Hemoglobin 31.8 PG (27.0-31.0) H Mean Corpuscular Hemoglobin Concent 30.8 G/DL (32.0-36.0) L Red Cell Distribution Width 15.4 % (11.6-14.8) H Platelet Count 188 K/UL (150-450) Mean Platelet Volume 6.9 FL (6.5-10.1) Neutrophils (%) (Auto) 66.5 % (45.0-75.0) Lymphocytes (%) (Auto) 19.4 % (20.0-45.0) L Monocytes (%) (Auto) 7.7 % (1.0-10.0) Eosinophils (%) (Auto) 3.2 % (0.0-3.0) H Basophils (%) (Auto) 3.3 % (0.0-2.0) H Prothrombin Time 11.0 SEC (9.30-11.50) Prothrombin Time INR 1.0 (0.9-1.1) Activated Partial Thromboplast Time 25 SEC (23-33) Sodium Level 137 MMOL/L (136-145) Potassium Level 4.7 MMOL/L (3.5-5.1) Chloride Level 97 MMOL/L (98-107) L Carbon Dioxide Level 27 MMOL/L (21-32) Anion Gap 13 mmol/L (5-15) Blood Urea Nitrogen 39 mg/dL (7-18) H Creatinine 7.6 MG/DL (0.55-1.30) H Estimated Glomerular Filtration Rate 10.4 mL/min (>60) Glucose Level 264 MG/DL (74-106) H Calcium Level 9.4 MG/DL (8.5-10.1) Magnesium Level 2.9 MG/DL (1.8-2.4) H Total Bilirubin 0.4 MG/DL (0.2-1.0) Aspartate Amino Transferase (AST) 39 U/L (15-37) H Alanine Aminotransferase (ALT) 67 U/L (12-78) Alkaline Phosphatase 212 U/L (46-116) H Troponin I 0.037 ng/mL (0.000-0.056) Pro-B-Type Natriuretic Peptide 02453 pg/mL (0-125) H Total Protein 8.4 G/DL (6.4-8.2) H Albumin 4.1 G/DL (3.4-5.0) Globulin 4.3 g/dL Albumin/Globulin Ratio 1.0 (1.0-2.7) Serum Alcohol < 3 mg/dL Acetone Level Negative (NEGATIVE) Urine Color Pale yellow Urine Appearance Slightly cloudy Urine pH 8 (4.5-8.0) Urine Specific [place] 1.015 (1.005-1.035) Urine Protein 4+ (NEGATIVE) H Urine Glucose (UA) 3+ (NEGATIVE) H Urine Ketones Negative (NEGATIVE) Urine Blood 3+ (NEGATIVE) H Urine Nitrite Negative (NEGATIVE) Urine Bilirubin Negative (NEGATIVE) Urine Urobilinogen Normal MG/DL (0.0-1.0) Urine Leukocyte Esterase Negative (NEGATIVE) Urine RBC 10-15 /HPF (0 - 0) H Urine WBC 2-4 /HPF (0 - 0) Urine Squamous Epithelial Cells Occasional /LPF Urine Amorphous Sediment Many /LPF (NONE) H Urine Bacteria Moderate /HPF (NONE) H Urine Opiates Screen Negative (NEGATIVE) Urine Barbiturates Screen Negative (NEGATIVE) Phencyclidine (PCP) Screen Negative (NEGATIVE) Urine Amphetamines Screen Negative (NEGATIVE) Urine Benzodiazepines Screen Negative (NEGATIVE) Urine Cocaine Screen Negative (NEGATIVE) Urine Marijuana (THC) Screen Negative (NEGATIVE) EKG Diagnostic Results EKG Time: 18:26 Rate: tachycardiac Rhythm: NSR Other Impression Sinus rhythm, normal axis, no abnormal intervals, peaked T waves in the precordial leads Rhythm Strip Diag. Results Rhythm Strip Time: 18:26 EP Interpretation: yes Rate: 110 Rhythm: NSR, no PVC's, no ectopy CT/MRI/US Diagnostic Results CT/MRI/US Diagnostic Results : Impression IMPRESSION: 1. No acute findings identified within the abdomen or pelvis to explain the patient's abdominal pain. No evidence of bowel obstruction. 2. Mild volume ascites. Small pericardial effusion, stable. Radiologist: Gail Ocampo M.D. Electronically Signed: 04/24/20 19:57 Study ready at 19:45 and initial results transmitted at 19:57 Last Vital Signs Date Time Temp Pulse Resp B/P (MAP) Pulse Ox O2 Delivery O2 Flow Rate FiO2 04/24/20 17:33 98.2 110 20 223/122 (155) 98 Room Air Disposition: ADMITTED INPATIENT Condition: Serious Rebel Pineda MD Apr 24, 2020 18:00
[2020-04-24 18:44] LABS: BASOPHILS % (AUTO) 3.3 % (0.0-2.0); EOSINOPHILS % (AUTO) 3.2 % (0.0-3.0); HEMATOCRIT 29.9 % (42.0-52.0); HEMOGLOBIN 9.2 G/DL (14.2-18.0); LYMPHOCYTES % (AUTO) 19.4 % (20.0-45.0); MEAN CORPUSCULAR VOLUME 103 FL (80-99); MONOCYTES % (AUTO) 7.7 % (1.0-10.0); NEUTROPHILS % (AUTO) 66.5 % (45.0-75.0); PLATELET COUNT 188 K/UL (150-450); RED CELL DISTRIBUTION WIDTH 15.4 % (11.6-14.8); WHITE BLOOD COUNT 6.4 K/UL (4.8-10.8)
[2020-04-24] MEDS ORDERED: DiphenhydrAMINE 50mg/ml Inj IVP ONE (18:45)
[2020-04-24 18:55] LABS: ANION GAP 13 mmol/L (5-15); BLOOD UREA NITROGEN 39 mg/dL (7-18); CALCIUM 9.4 MG/DL (8.5-10.1); CARBON DIOXIDE 27 MMOL/L (21-32); CHLORIDE 97 MMOL/L (98-107); CREATININE 7.6 MG/DL (0.55-1.30); POTASSIUM 4.7 MMOL/L (3.5-5.1); SODIUM 137 MMOL/L (136-145)
[2020-04-24 18:57] LABS: APPEARANCE,URINE SLIGHTLY CLOUDY; BILIRUBIN, URINE NEGATIVE (NEGATIVE); COLOR,URINE PALE YELLOW; GLUCOSE, URINE (UA) 3+ (NEGATIVE); KETONES,URINE NEGATIVE (NEGATIVE); LEUKOCYTE ESTERASE ,URINE NEGATIVE (NEGATIVE); NITRITE,URINE NEGATIVE (NEGATIVE); PH,URINE 8 (4.5-8.0); PROTEIN,URINE 4+ (NEGATIVE); UROBILINOGEN,URINE NORMAL MG/DL (0.0-1.0)
[2020-04-24 18:59] LABS: ALANINE AMINOTRANSFERASE 67 U/L (12-78); ALBUMIN 4.1 G/DL (3.4-5.0); ALKALINE PHOSPHATASE 212 U/L (46-116); ASPARTATE AMINO TRANSFERASE 39 U/L (15-37); BILIRUBIN,TOTAL 0.4 MG/DL (0.2-1.0)
[2020-04-24] MEDS ORDERED: Labetalol 5mg/ml 20ml vial IV ONE (19:00)
[2020-04-24 19:15] VITALS: BP 198/118
--- NOTE | 2020-04-24 19:58 | Diagnostic Imaging Report ---
EXAM: CT Abdomen and Pelvis Without Intravenous Contrast CLINICAL HISTORY: ABD PAIN Notes: 29-year-old male history of hypertension, diabetes, HIV, ESRD on hemodialysis TRS presents for evaluation of abdominal pain and vomiting TECHNIQUE: Axial computed tomography images of the abdomen and pelvis without intravenous contrast. CTDI is 4.4 mGy and DLP is 255.4 mGy-cm. One or more of the following dose reduction techniques were used: automated exposure control, adjustment of the mA and/or kV according to patient size, use of iterative reconstruction technique. COMPARISON: Comparison 07/07/2019. FINDINGS: Evaluation of the vasculature and soft tissues limited on this noncontrast exam. Lung bases: Mild bilateral lobe lower lobe atelectasis and left lower lobe streak-like scarring. No pleural effusions. Small pericardial effusion, stable. Mild cardiomegaly, stable. ABDOMEN: Liver: Unremarkable. Gallbladder and bile ducts: Unremarkable. No calcified stones. No ductal dilation. Pancreas: Unremarkable. No ductal dilation. Spleen: Unremarkable. No splenomegaly. Adrenals: Unremarkable. No mass. Kidneys and ureters: Unremarkable. No obstructing stones. No hydronephrosis. Stomach and bowel: Small hiatal hernia. Unremarkable. No obstruction. No mucosal thickening. PELVIS: Appendix: The appendix is normal (111). Bladder: The urinary bladder wall appears thickened however this may be accentuated by the lack of distention. Reproductive: Unremarkable as visualized. ABDOMEN and PELVIS: Intraperitoneal space: No free intraperitoneal air. Mild volume ascites, decreased in volume compared to the prior study. Bones/joints: Osseous structures are unremarkable. Soft tissues: Anasarca is present, decreased compared to the prior study. Vasculature: Unremarkable. No abdominal aortic aneurysm. Lymph nodes: Prominent external iliac and inguinal lymph nodes are identified, likely reactive, stable. IMPRESSION: 1. No acute findings identified within the abdomen or pelvis to explain the patient's abdominal pain. No evidence of bowel obstruction. 2. Mild volume ascites. Small pericardial effusion, stable.
[2020-04-24] MEDS ORDERED: Morphine Sulfate 4mg/ml Inj (IV USE ONLY) ONE (20:15)
[2020-04-24] MEDS ORDERED: Acetaminophen 500mg (ES) tab ORAL PRN (20:15)
--- NOTE | 2020-04-24 20:41 | Diagnostic Imaging Report ---
EXAM: XR Chest, 1 View CLINICAL HISTORY: SOB TECHNIQUE: Upright portable Frontal view of the chest. COMPARISON: 02/08/2020. FINDINGS/impression: Single frontal view demonstrates a normal cardiomediastinal silhouette. Mild perihilar vascular congestion. No focal consolidation or pneumothorax. Trace left pleural effusion. The visualized osseous structures are within normal limits.
[2020-04-24 21:15] VITALS: BP 195/112
[2020-04-24 22:10] VITALS: BP 205/113
[2020-04-25] VITALS (7 sets, daily range): BP systolic 158–231; BP diastolic 99–118
[2020-04-25] MEDS ORDERED: Insulin Human Regular 100units/ml 3ml ONE (00:42)
[2020-04-25] MEDS ORDERED: Insulin Human Regular 100units/ml 3ml IV ONE (00:45)
[2020-04-25] MEDS: NovoLOG Insulin Flexpen SUBQ SCH ×5 (01:28→20:43)
[2020-04-25] MEDS: Heparin 5000 units/ml inj SUBQ SCH ×3 (01:29→20:42)
[2020-04-25] MEDS ORDERED: DiphenhydrAMINE 50mg/ml Inj IVP PRN (02:00)
[2020-04-25] MEDS: Morphine Sulfate 2mg/ml Inj(IV/IM USE ONLY) IVP PRN ×2 (02:20→09:20)
[2020-04-25] MEDS: Levemir Flexpen SUBQ SCH ×3 (02:23→11:30)
[2020-04-25] MEDS: HydrALAZINE 25mg tab ORAL SCH (05:55)
[2020-04-25] MEDS: DiphenhydrAMINE 50mg/ml Inj IVP PRN ×3 (07:28→19:54)
[2020-04-25] MEDS ORDERED: Heparin Sod 1000 units/ml 10ml IV PRN (07:30)
[2020-04-25] MEDS ORDERED: HydrALAZINE 50mg tab ORAL SCH ×3 (08:00→22:00)
--- NOTE | 2020-04-25 09:00 | History and Physical Report ---
DATE OF ADMISSION: 04/24/2020 CHIEF COMPLAINT: Abdominal pain. HISTORY OF PRESENT ILLNESS: The patient is a 29-year-old male. He has a history of end-stage renal disease for the last three years. He has a history of diabetes and hypertension, presented with complaints of acute onset of abdominal pain that awoke him in the morning. The pain is severe and constant. He has not had prior pain before. He has had liquid stools, but denies any melena or bright red blood per rectum. He had several episodes of emesis, but did have some blood-tinged material in it. On evaluation in the emergency room, white count was normal. LFTs were also unremarkable. CT scan of the abdomen was also unremarkable, but because of the patient's severe intractable pain, he is now admitted for further evaluation and care. PAST MEDICAL HISTORY: As above. PAST SURGICAL HISTORY: Includes a fistula. CURRENT MEDICATIONS: Reconciled and reviewed. ALLERGIES: None. FAMILY HISTORY: None. SOCIAL HISTORY: Negative for tobacco, ethanol, or drugs. REVIEW OF SYSTEMS: GENERAL: No fevers or chills. HEENT: No headaches or visual changes. CARDIOPULMONARY: No chest pain or shortness of breath. GASTROINTESTINAL: Positive nausea and vomiting. Positive abdominal pain. No melena. No bright red blood per rectum. GENITOURINARY: No urgency or frequency. MUSCULOSKELETAL: No joint pain or swelling. NEUROLOGIC: No history of seizures. PHYSICAL EXAMINATION: VITAL SIGNS: Temperature 98, pulse 111, respirations 20, and blood pressure 176/114. GENERAL: The patient is well developed, in no apparent distress. HEART: Regular rate and rhythm. LUNGS: Clear. ABDOMEN: Soft. Diffusely tender. There is no rebound or guarding. EXTREMITIES: No clubbing, cyanosis, or edema. LABORATORY DATA: Sodium 137, BUN 39, creatinine 7.6. White count 6, hemoglobin 9.2. UA showed 10 to 15 rbc's. ASSESSMENT: This is a 29-year-old male with history of hypertension and diabetes, admitted with complaints of abdominal pain, unclear etiology. We will add a lipase to the morning labs as the patient may have acute pancreatitis. PLAN: 1. IV pain medications and antiemetics. 2. DVT and stress ulcer prophylaxes. 3. Continue outpatient cardiac and diabetic regimen. 4. We will follow up lipase level. Ben Ibarra M.D. DR: RICHELLE JOB#: [id number] CC:
[2020-04-25] MEDS: HYDROmorphone 1mg/ml Carpuject IVP PRN ×3 (11:28→20:48)
--- NOTE | 2020-04-25 17:03 | Cardiology Progress Note ---
Subjective DATE OF SERVICE: Apr 25, 2020 Still has SOB and some abdominal pain BP very labile No c/o CP Scheduled for HD/UF today Glucose elevated Lipase normal MONITOR: sinus tachycardia Objective Last 24 Hour Vital Signs Date Time Temp Pulse Resp B/P (MAP) Pulse Ox O2 Delivery O2 Flow Rate FiO2 04/25/20 16:45 203/113 04/25/20 15:37 214/133 04/25/20 12:41 186/115 04/25/20 12:00 98.2 105 20 186/115 (138) 100 04/25/20 12:00 106 04/25/20 11:29 186/115 04/25/20 09:00 111 176/114 04/25/20 09:00 111 176/114 04/25/20 09:00 Room Air 2.0 04/25/20 08:00 110 04/25/20 08:00 98.2 111 20 176/114 (134) 100 04/25/20 06:59 184/132 04/25/20 05:55 158/99 04/25/20 04:00 112 04/25/20 04:00 98.2 112 20 158/99 (118) 100 04/25/20 02:40 231/116 04/25/20 02:28 231/116 04/25/20 02:25 98.1 110 18 215/117 (149) 100 04/25/20 02:15 99.0 101 21 197/102 100 Nasal Cannula 2.0 04/25/20 01:41 Nasal Cannula 2.0 04/25/20 01:30 97.9 115 19 231/116 (154) 100 04/25/20 01:26 113 04/24/20 22:14 203/113 04/24/20 22:10 98.8 104 18 205/113 100 Nasal Cannula 2.0 98 04/24/20 21:15 98.5 98 18 195/112 100 Nasal Cannula 2.0 98 04/24/20 20:46 98.8 04/24/20 19:15 98.5 108 18 198/118 100 Nasal Cannula 2.0 98 04/24/20 19:12 108 198/118 04/24/20 18:47 98.2 04/24/20 18:16 212/124 04/24/20 18:15 212/123 9/6/20 18:00 98.2 105 18 199/109 98 Room Air 04/24/20 18:00 105 18 Room Air 98 04/24/20 17:33 98.2 110 20 223/122 (155) 98 Room Air ROS: unchanged from my eval of 04/24/20 HEENT: normal ENT inspection RHYTHM: ST LUNGS: lungs clear bilaterally CARDIAC: regular rhythm, normal S1 and S2, rapid rate, tachycardia ABDOMEN: normal bowel sounds, non tender, soft, no organomegaly EXTREMITIES: non-tender, no calf tenderness, no swelling, No edema - Palpable bruit over dialysis access site Laboratory Tests Test 04/24/20 18:05 04/24/20 18:11 04/25/20 04:45 04/25/20 07:17 White Blood Count 6.4 K/UL (4.8-10.8) Red Blood Count 2.90 M/UL (4.70-6.10) L Hemoglobin 9.2 G/DL (14.2-18.0) L Hematocrit 29.9 % (42.0-52.0) L Mean Corpuscular Volume 103 FL (80-99) H Mean Corpuscular Hemoglobin 31.8 PG (27.0-31.0) H Mean Corpuscular Hemoglobin Concent 30.8 G/DL (32.0-36.0) L Red Cell Distribution Width 15.4 % (11.6-14.8) H Platelet Count 188 K/UL (150-450) Mean Platelet Volume 6.9 FL (6.5-10.1) Neutrophils (%) (Auto) 66.5 % (45.0-75.0) Lymphocytes (%) (Auto) 19.4 % (20.0-45.0) L Monocytes (%) (Auto) 7.7 % (1.0-10.0) Eosinophils (%) (Auto) 3.2 % (0.0-3.0) H Basophils (%) (Auto) 3.3 % (0.0-2.0) H Prothrombin Time 11.0 SEC (9.30-11.50) Prothromb Time International Ratio 1.0 (0.9-1.1) Activated Partial Thromboplast Time 25 SEC (23-33) Sodium Level 137 MMOL/L (136-145) Potassium Level 4.7 MMOL/L (3.5-5.1) Chloride Level 97 MMOL/L (98-107) L Carbon Dioxide Level 27 MMOL/L (21-32) Anion Gap 13 mmol/L (5-15) Blood Urea Nitrogen 39 mg/dL (7-18) H Creatinine 7.6 MG/DL (0.55-1.30) H Estimat Glomerular Filtration Rate 10.4 mL/min (>60) Glucose Level 264 MG/DL (74-106) H Calcium Level 9.4 MG/DL (8.5-10.1) Magnesium Level 2.9 MG/DL (1.8-2.4) H Total Bilirubin 0.4 MG/DL (0.2-1.0) Aspartate Amino Transf (AST/SGOT) 39 U/L (15-37) H Alanine Aminotransferase (ALT/SGPT) 67 U/L (12-78) Alkaline Phosphatase 212 U/L (46-116) H Troponin I 0.037 ng/mL (0.000-0.056) 0.017 ng/mL (0.000-0.056) Pro-B-Type Natriuretic Peptide 49166 pg/mL (0-125) H Total Protein 8.4 G/DL (6.4-8.2) H Albumin 4.1 G/DL (3.4-5.0) Globulin 4.3 g/dL Albumin/Globulin Ratio 1.0 (1.0-2.7) Serum Alcohol < 3 mg/dL Acetone Level Negative (NEGATIVE) Urine Color Pale yellow Urine Appearance Slightly cloudy Urine pH 8 (4.5-8.0) Urine Specific [place] 1.015 (1.005-1.035) Urine Protein 4+ (NEGATIVE) H Urine Glucose (UA) 3+ (NEGATIVE) H Urine Ketones Negative (NEGATIVE) Urine Blood 3+ (NEGATIVE) H Urine Nitrite Negative (NEGATIVE) Urine Bilirubin Negative (NEGATIVE) Urine Urobilinogen Normal MG/DL (0.0-1.0) Urine Leukocyte Esterase Negative (NEGATIVE) Urine RBC 10-15 /HPF (0 - 0) H Urine WBC 2-4 /HPF (0 - 0) Urine Squamous Epithelial Cells Occasional /LPF Urine Amorphous Sediment Many /LPF (NONE) H Urine Bacteria Moderate /HPF (NONE) H Urine Opiates Screen Negative (NEGATIVE) Urine Barbiturates Screen Negative (NEGATIVE) Phencyclidine (PCP) Screen Negative (NEGATIVE) Urine Amphetamines Screen Negative (NEGATIVE) Urine Benzodiazepines Screen Negative (NEGATIVE) Urine Cocaine Screen Negative (NEGATIVE) Urine Marijuana (THC) Screen Negative (NEGATIVE) Hemoglobin A1c 8.7 % (4.3-6.0) H Lipase 110 U/L (73-393) Hepatitis B Surface Antigen Pending Hepatitis C Antibody Pending Microbiology Date/Time Source Procedure Growth Status 04/24/20 18:11 Urine,Clean Catch Urine Culture - Preliminary NO GROWTH Resulted 04/24/20 21:00 Rectum Received EKG INTERPRETATION: 04/24/20: sinus tachycardia Assessment/Plan Assessment/Plan Hypertensive urgency Abdominal Pain ESRD Acute and chronic diastolic CHF Anemia of CKD with macrocytosis Acute myocardial ischemia IRDM with hyperglycemia AntiHTN meds adjusted HD with UF PPI rx Insulin bySS Check vitamin parameters GI follow up if abdominal pain worsens Shamir Dunlap MD Apr 25, 2020 17:03
--- NOTE | 2020-04-25 20:00 | Consultation ---
DATE OF CONSULTATION: 04/25/2020 REFERRING PHYSICIAN: Ben Ibarra M.D. REASON FOR CONSULTATION: End-stage renal disease. HISTORY OF PRESENT ILLNESS: The patient is a 29-year-old man with diabetes since about age 15 and end-stage renal disease, on dialysis for 3 years. He had severe hypertension, presents with a markedly elevated blood pressure, nausea, vomiting, abdominal pain. There is also a history of HIV positive. There is no shortness of breath or chest pain. ALLERGIES: Aspirin. HOME MEDICATIONS: Listed and include clonidine, hydralazine, glargine, insulin, lispro, labetalol, nifedipine, tramadol. SURGERIES: AV fistula, left arm. HABITS: He denies alcohol or drugs or smoking. SYSTEM REVIEW: HEAD, EYES, EARS, NOSE, AND THROAT: Denies visual or hearing problems. ENDOCRINE: Diabetes, long-standing. No thyroid disease. PULMONARY: No asthma, TB, chronic cough. CARDIAC: No angina or IN. GASTROINTESTINAL: He has had some nausea, vomiting, and apparently one episode of blood-tinged emesis. He did have a CT of the abdomen, but it was unremarkable. GENITOURINARY: He makes little urine. No dysuria. NEUROLOGIC: No CVA or seizures. PHYSICAL EXAMINATION: GENERAL: The patient is an alert, thin male, looks his stated age. No acute distress. VITAL SIGNS: Temperature 98.2, pulse 105, respiratory 20, blood pressure 186/115. HEAD, EYES, EARS, NOSE, AND THROAT: Sclerae are nonicteric. Ocular motions intact in all directions. Oral mucosa moist. NECK: No adenopathy or thyroid enlargement. LUNGS: Clear. HEART: Regular rhythm and tachycardic. There is a 2/6 systolic ejection murmur. ABDOMEN: Nondistended. Liver and spleen not palpable. There is some mild guarding, but no focal tenderness. NEUROLOGIC: He is alert and oriented. No focal weakness. IMPRESSION: 1. End-stage renal disease. 2. Malignant hypertension. 3. Adult-onset diabetes. 4. Severe hypertension. PLAN: 1. Blood pressure medicines are adjusted. 2. Dialysis and fluid removal, which may help control blood pressure. 3. Symptomatic care of his GI problems CT scan be negative. Possible contributing factors include his uremia to his GI problems, and dialysis is being arranged. His BUN is only 39. Benito Maguire M.D. DR: EDELMIRA JOB#: [id number] CC:
[2020-04-25] MEDS: Metoprolol Tartrate 50mg tab ORAL SCH (20:42)
[2020-04-26] VITALS: BP 132/72
[2020-04-26] MEDS: DiphenhydrAMINE 50mg/ml Inj IVP PRN ×5 (00:01→21:48)
[2020-04-26] MEDS: HYDROmorphone 1mg/ml Carpuject IVP PRN ×5 (00:55→21:01)
[2020-04-26 04:00] VITALS: BP 131/70
[2020-04-26] MEDS: HydrALAZINE 50mg tab ORAL SCH ×3 (05:53→21:52)
[2020-04-26] MEDS: NovoLOG Insulin Flexpen SUBQ SCH ×4 (05:57→20:38)
[2020-04-26] MEDS: Levemir Flexpen SUBQ SCH ×2 (05:58→11:28)
[2020-04-26] MEDS ORDERED: HydrALAZINE 50mg tab ORAL SCH (06:00)
[2020-04-26 06:41] LABS: BASOPHILS % (AUTO) 3.4 % (0.0-2.0); HEMATOCRIT 29.4 % (42.0-52.0); HEMOGLOBIN 9.1 G/DL (14.2-18.0); LYMPHOCYTES % (AUTO) 13.1 % (20.0-45.0); MEAN CORPUSCULAR VOLUME 103 FL (80-99); MONOCYTES % (AUTO) 7.5 % (1.0-10.0); PLATELET COUNT 196 K/UL (150-450); RED BLOOD COUNT 2.86 M/UL (4.70-6.10); RED CELL DISTRIBUTION WIDTH 14.3 % (11.6-14.8); WHITE BLOOD COUNT 5.4 K/UL (4.8-10.8)
[2020-04-26 07:16] LABS: ANION GAP 12 mmol/L (5-15); BLOOD UREA NITROGEN 30 mg/dL (7-18); CALCIUM 8.9 MG/DL (8.5-10.1); CARBON DIOXIDE 26 MMOL/L (21-32); CHLORIDE 87 MMOL/L (98-107); CREATININE 7.3 MG/DL (0.55-1.30); POTASSIUM 5.4 MMOL/L (3.5-5.1); SODIUM 125 MMOL/L (136-145)
[2020-04-26 07:32] LABS: % IRON SATURATION 31 % (15-50); IRON 102 ug/dL (50-175); TOTAL IRON BINDING CAPACITY 328 ug/dL (250-450)
[2020-04-26 08:00] VITALS: BP 154/92
--- NOTE | 2020-04-26 08:10 | General Progress Note ---
Assessment/Plan Problem List: (1) Type 1 diabetes ICD Codes: E10.9 - Type 1 diabetes mellitus without complications SNOMED: 07308519 (2) Uncontrolled hypertension ICD Codes: I10 - Essential (primary) hypertension SNOMED: 27216296, 21874476 (3) Noncompliance ICD Codes: Z91.19 - Patient's noncompliance with other medical treatment and regimen SNOMED: 9990755 (4) Hyperglycemia ICD Codes: R73.9 - Hyperglycemia, unspecified SNOMED: 14962351 (5) ESRD (end stage renal disease) ICD Codes: N18.6 - End stage renal disease SNOMED: 79186241 (6) Abdominal pain ICD Codes: R10.9 - Unspecified abdominal pain SNOMED: 30727862 (7) Hypertensive urgency ICD Codes: I16.0 - Hypertensive urgency SNOMED: 240083706 Status: stable, progressing Assessment/Plan: cont current rx pain meds- try to wean GI and surgery eval re: pts persistent abd pain added PPI iv HD per renal cont BP rx Subjective ROS Limited/Unobtainable: No Constitutional: Reports: weakness HEENT: Reports: no symptoms Cardiovascular: Reports: no symptoms Respiratory: Reports: no symptoms Gastrointestinal/Abdominal: Reports: abdominal pain Genitourinary: Reports: no symptoms Neurologic/Psychiatric: Reports: no symptoms Endocrine: Reports: no symptoms Hematologic/Lymphatic: Reports: no symptoms Allergies: Coded Allergies: ASPIRIN (Unverified Allergy, Unknown, 02/08/20) All Systems: reviewed and negative except above Subjective still with c/o severe abd pain. lipase normal. still requiring iv pain meds. BS 500 ? this am. was hypoglycemic yesterday. was refusing oral bp meds yesterday. compliant with oral meds. BP improved Objective Last 24 Hour Vital Signs Date Time Temp Pulse Resp B/P (MAP) Pulse Ox O2 Delivery O2 Flow Rate FiO2 04/26/20 05:53 138/74 04/26/20 04:00 91 04/26/20 04:00 98.5 90 20 131/70 (90) 98 04/26/20 00:00 99.1 91 20 132/72 (92) 94 04/26/20 00:00 92 04/25/20 23:00 147/89 04/25/20 22:16 164/109 04/25/20 21:00 Room Air 2.0 04/25/20 20:44 115 181/118 04/25/20 20:42 115 181/118 04/25/20 20:41 114 181/115 04/25/20 20:00 97.9 108 23 189/118 (141) 97 04/25/20 20:00 108 04/25/20 19:09 203/113 04/25/20 16:45 203/113 04/25/20 16:00 109 04/25/20 16:00 97.5 109 20 208/115 (146) 98 04/25/20 15:37 214/133 04/25/20 12:41 186/115 04/25/20 12:00 98.2 105 20 186/115 (138) 100 04/25/20 12:00 106 04/25/20 11:29 186/115 04/25/20 09:00 111 176/114 04/25/20 09:00 111 176/114 04/25/20 09:00 Room Air 2.0 Laboratory Tests 04/25/20 16:20: Hepatitis B Surface Antigen [Pending], Hepatitis C Antibody [Pending] 04/26/20 06:00: White Blood Count 5.4, Red Blood Count 2.86L, Hemoglobin 9.1L, Hematocrit 29.4L , Mean Corpuscular Volume 103H, Mean Corpuscular Hemoglobin 31.8H, Mean Corpuscular Hemoglobin Concent 31.0L, Red Cell Distribution Width 14.3, Platelet Count 196, Mean Platelet Volume 5.9L, Neutrophils (%) (Auto) 74.0, Lymphocytes (%) (Auto) 13.1L, Monocytes (%) (Auto) 7.5, Eosinophils (%) (Auto) 2.0, Basophils (%) (Auto) 3.4H, Sodium Level 125L, Potassium Level 5.4H, Chloride Level 87L, Carbon Dioxide Level 26, Anion Gap 12, Blood Urea Nitrogen 30H, Creatinine 7.3H, Estimat Glomerular Filtration Rate 10.9, Glucose Level 661 #*H, Calcium Level 8.9, Iron Level 102, Total Iron Binding Capacity 328, Percent Iron Saturation 31, Unsaturated Iron Binding 226, Vitamin B12 Level 1127H, Folate 12.1, Thyroid Stimulating Hormone (TSH) 1.088 Height (Feet): 5 Height (Inches): 9.00 Weight (Pounds): 152 General Appearance: WD/WN, alert, thin EENT: normal ENT inspection Neck: non-tender, normal alignment, supple Cardiovascular: normal peripheral pulses, normal rate Respiratory/Chest: chest wall non-tender, lungs clear, normal breath sounds, no respiratory distress, no accessory muscle use Abdomen: normal bowel sounds, soft, no organomegaly, no mass, tender Edema: no edema noted Arm (L), no edema noted Arm (R) 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
[2020-04-26] MEDS: Pantoprazole Inj IVP SCH ×2 (09:25→20:39)
[2020-04-26] MEDS: Metoprolol Tartrate 50mg tab ORAL SCH ×2 (09:26→20:39)
[2020-04-26] MEDS: Heparin 5000 units/ml inj SUBQ SCH (09:28)
[2020-04-26 12:00] VITALS: BP 145/88
--- NOTE | 2020-04-26 12:07 | Consultation ---
History of Present Illness General Date patient seen: Apr 26, 2020 Reason for Hospitalization: Abdominal Pain Present Illness HPI 29-year-old male with history of hypertension, diabetes, HIV, ESRD on hemodialysis presents for evaluation of abdominal pain and vomiting. Symptoms began this just prior to admission. He states he had several episodes of vomiting unable to tolerate his antihypertensive medications in the morning. He reports abdominal pain is diffuse and cramping. Denies diarrhea, flank pain , fever, chills, chest pain or shortness of breath. Denies recent cough, congestion. He has a prior history of DKA. Denies drug or alcohol use. Surgery called to evaluate and assist with care. patient seen, chart reviewed, patient examined. states pain still persistent and not getting better. passing flatus. Allergies: Coded Allergies: ASPIRIN (Unverified Allergy, Unknown, 02/08/20) COVID-19 Screening Contact w/high risk pt: No Recent Travel to affected area: No Experienced COVID-19 symptoms?: No Medication History Scheduled Clonidine Hcl* (Catapres*), 0.2 MG ORAL Q6HR Hydralazine Hcl* (Hydralazine Hcl*), 50 MG ORAL EVERY 8 HOURS Insulin Glargine (Lantus), 13 UNIT SUBQ BEDTIME Insulin Lispro (Humalog), 4 UNITS SUBQ TID with meals Labetalol Hcl* (Normodyne*), 200 MG ORAL EVERY 12 HOURS Nifedipine Er* (Nifedipine Er*), 30 MG ORAL DAILY Scheduled PRN Tramadol Hcl* (Ultram*), 50 MG ORAL Q6H PRN PRN Patient History History Provided By: Patient, Medical Record, PMD Healthcare decision maker Resuscitation status Advanced Directive on File Past Medical/Surgical History Past Medical/Surgical History: (1) Diabetic ketoacidosis (2) Pancytopenia (3) HIV (human immunodeficiency virus infection) (4) Liver hemangioma (5) Uncontrolled hypertension (6) Hyperglycemia (7) ESRD (end stage renal disease) (8) Abdominal pain (9) Hypertensive urgency (10) Type 1 diabetes (11) Noncompliance Review of Systems Review of Symptoms General ROS: no weight loss or fever Psychological ROS: no depression or mood changes, no memory loss Ophthalmic ROS: no visual changes or eye irritation ENT ROS: no nasal congestion, hearing loss, dizziness Allergy and Immunology ROS: no allergic symptoms or urticaria Hematological and Lymphatic ROS: no swollen glands, unusual bleeding or bruising Endocrine ROS: no polyuria, polydipsia, weight changes, temperature intolerance Respiratory ROS: no cough, shortness of breath, or wheezing Cardiovascular ROS: no chest pain or dyspnea on exertion Gastrointestinal ROS: + abdominal pain, no bright red blood in stool. Musculoskeletal ROS: no myalgias or arthralgias Neurological ROS: no TIA or stroke symptoms Dermatological ROS: no new or changing skin lesions, rashes or pruritis Physical Exam Physical Exam General appearance: alert, cooperative, no distress, appears stated age Head: Normocephalic, without obvious abnormality, atraumatic Eyes: conjunctivae/corneas clear. PERRL, EOM's intact. Fundi benign Throat: Lips, mucosa, and tongue normal. Teeth and gums normal Neck: supple, symmetrical, trachea midline, no adenopathy, thyroid: not enlarged, symmetric, no tenderness/mass/nodules, no carotid bruit and no JVD Lungs: clear to auscultation bilaterally Heart: regular rate and rhythm, S1, S2 normal, no murmur, click, rub or gallop Abdomen: soft, non-tender. Bowel sounds normal. No masses, no organomegaly small reducible umbilical hernia Extremities: extremities normal, atraumatic, no cyanosis or edema Pulses: 2+ and symmetric Skin: Skin color, texture, turgor normal. No rashes or lesions Neurologic: Grossly normal Last 24 Hour Vital Signs Date Time Temp Pulse Resp B/P (MAP) Pulse Ox O2 Delivery O2 Flow Rate FiO2 04/26/20 09:26 93 154/92 04/26/20 09:26 93 154/92 04/26/20 09:00 Room Air 2.0 04/26/20 08:00 94 04/26/20 08:00 98.1 93 20 154/92 (112) 100 04/26/20 05:53 138/74 04/26/20 04:00 91 04/26/20 04:00 98.5 90 20 131/70 (90) 98 04/26/20 00:00 99.1 91 20 132/72 (92) 94 04/26/20 00:00 92 04/25/20 23:00 147/89 04/25/20 22:16 164/109 04/25/20 21:00 Room Air 2.0 04/25/20 20:44 115 181/118 04/25/20 20:42 115 181/118 04/25/20 20:41 114 181/115 04/25/20 20:00 97.9 108 23 189/118 (141) 97 04/25/20 20:00 108 04/25/20 19:09 203/113 04/25/20 16:45 203/113 04/25/20 16:00 109 04/25/20 16:00 97.5 109 20 208/115 (146) 98 04/25/20 15:37 214/133 04/25/20 12:41 186/115 Laboratory Tests Test 04/25/20 16:20 04/26/20 06:00 Hepatitis B Surface Antigen Pending Hepatitis C Antibody Pending White Blood Count 5.4 K/UL (4.8-10.8) Red Blood Count 2.86 M/UL (4.70-6.10) L Hemoglobin 9.1 G/DL (14.2-18.0) L Hematocrit 29.4 % (42.0-52.0) L Mean Corpuscular Volume 103 FL (80-99) H Mean Corpuscular Hemoglobin 31.8 PG (27.0-31.0) H Mean Corpuscular Hemoglobin Concent 31.0 G/DL (32.0-36.0) L Red Cell Distribution Width 14.3 % (11.6-14.8) Platelet Count 196 K/UL (150-450) Mean Platelet Volume 5.9 FL (6.5-10.1) L Neutrophils (%) (Auto) 74.0 % (45.0-75.0) Lymphocytes (%) (Auto) 13.1 % (20.0-45.0) L Monocytes (%) (Auto) 7.5 % (1.0-10.0) Eosinophils (%) (Auto) 2.0 % (0.0-3.0) Basophils (%) (Auto) 3.4 % (0.0-2.0) H Sodium Level 125 MMOL/L (136-145) L Potassium Level 5.4 MMOL/L (3.5-5.1) H Chloride Level 87 MMOL/L (98-107) L Carbon Dioxide Level 26 MMOL/L (21-32) Anion Gap 12 mmol/L (5-15) Blood Urea Nitrogen 30 mg/dL (7-18) H Creatinine 7.3 MG/DL (0.55-1.30) H Estimat Glomerular Filtration Rate 10.9 mL/min (>60) Glucose Level 661 MG/DL (74-106) #*H Calcium Level 8.9 MG/DL (8.5-10.1) Iron Level 102 ug/dL (50-175) Total Iron Binding Capacity 328 ug/dL (250-450) Percent Iron Saturation 31 % (15-50) Unsaturated Iron Binding 226 ug/dL (112-346) Vitamin B12 Level 1127 PG/ML (193-986) H Folate 12.1 NG/ML (8.6-58.9) Thyroid Stimulating Hormone (TSH) 1.088 uiU/mL (0.358-3.740) Height (Feet): 5 Height (Inches): 9.00 Weight (Pounds): 152 Medications Current Medications Medications (Trade) Dose Ordered Sig/Jo-Ann Route PRN Reason Start Time Stop Time Status Last Admin Dose Admin Acetaminophen (Tylenol) 500 mg Q4H PRN ORAL Mild Pain (Pain Scale 1-3) 04/24/20 20:15 05/24/20 20:14 Clonidine HCl (Catapres TTS-2) 1 patch QWEEK TDERMAL 04/25/20 12:00 07/24/20 11:59 04/25/20 12:41 Clonidine HCl (Catapres Tab) 0.1 mg EVERY 4 HOURS PRN ORAL For High Blood Pressure 04/24/20 20:15 07/23/20 20:14 04/25/20 16:45 Dextrose (Dextrose 50%) 25 ml Q30M PRN IV Hypoglycemia 04/24/20 20:15 07/23/20 20:14 Dextrose (Dextrose 50%) 50 ml Q30M PRN IV Hypoglycemia 04/24/20 20:15 07/23/20 20:14 Diphenhydramine HCl (Benadryl) 50 mg Q4H PRN IVP Itching 04/25/20 07:00 05/25/20 06:59 04/26/20 11:30 Heparin Sodium (Porcine) (Heparin 5000 units/ml) 5,000 units EVERY 12 HOURS SUBQ 04/24/20 21:00 06/08/20 20:59 04/26/20 09:28 Hydralazine HCl (Apresoline) 100 mg Q8HR ORAL 04/26/20 06:00 07/25/20 05:59 04/26/20 05:53 Hydromorphone HCl (Dilaudid) 1 mg Q4H PRN IVP Severe Pain (Pain Scale 7-10) 04/25/20 10:30 05/02/20 10:29 04/26/20 09:27 Insulin Aspart (NovoLOG) BEFORE MEALS AND HS SUBQ 04/24/20 21:00 07/23/20 20:59 04/26/20 08:03 Insulin Detemir (Levemir) 5 units BIDBL SUBQ 04/24/20 21:30 07/23/20 21:29 04/26/20 05:58 Metoprolol Tartrate (Lopressor) 50 mg Q12HR ORAL 04/25/20 21:00 07/24/20 20:59 04/26/20 09:26 Nifedipine (Procardia XL) 60 mg Q12HR ORAL 04/25/20 09:00 05/25/20 08:59 04/26/20 09:26 Pantoprazole (Protonix) 40 mg EVERY 12 HOURS IVP 04/26/20 09:00 05/26/20 08:59 04/26/20 09:25 Assessment/Plan Problem List: (1) Uncontrolled hypertension ICD Codes: I10 - Essential (primary) hypertension SNOMED: 32112849, 36804388 (2) Hyperglycemia ICD Codes: R73.9 - Hyperglycemia, unspecified SNOMED: 00635237 (3) ESRD (end stage renal disease) ICD Codes: N18.6 - End stage renal disease SNOMED: 39834248 (4) Abdominal pain Assessment & Plan: 29-year-old male with generalized nominal pain cramping. Afebrile, hemodynamic stable CT reviewed no acute findings Abdominal exam is fairly benign no tenderness no peritonitis small reducible umbilical hernia but does state uncomfortable on examination palpation Currently no nausea vomiting fever chills Labs noted Abdominal ultrasound ordered Okay for diet from surgical standpoint No acute surgical intervention at this time We will follow with recommendations and serial abdominal examinations Thank you for allowing me to participate in patient's care ABDOMEN: Liver: Unremarkable. Gallbladder and bile ducts: Unremarkable. No calcified stones. No ductal dilation. Pancreas: Unremarkable. No ductal dilation. Spleen: Unremarkable. No splenomegaly. Adrenals: Unremarkable. No mass. Kidneys and ureters: Unremarkable. No obstructing stones. No hydronephrosis. Stomach and bowel: Small hiatal hernia. Unremarkable. No obstruction. No mucosal thickening. PELVIS: Appendix: The appendix is normal (111). Bladder: The urinary bladder wall appears thickened however this may be accentuated by the lack of distention. Reproductive: Unremarkable as visualized. ABDOMEN and PELVIS: Intraperitoneal space: No free intraperitoneal air. Mild volume ascites, decreased in volume compared to the prior study. Bones/joints: Osseous structures are unremarkable. Soft tissues: Anasarca is present, decreased compared to the prior study. Vasculature: Unremarkable. No abdominal aortic aneurysm. Lymph nodes: Prominent external iliac and inguinal lymph nodes are identified, likely reactive, stable. IMPRESSION: 1. No acute findings identified within the abdomen or pelvis to explain the patient's abdominal pain. No evidence of bowel obstruction. 2. Mild volume ascites. Small pericardial effusion, stable. ICD Codes: R10.9 - Unspecified abdominal pain SNOMED: 93038848 (5) Hypertensive urgency ICD Codes: I16.0 - Hypertensive urgency SNOMED: 622763267 (6) Type 1 diabetes ICD Codes: E10.9 - Type 1 diabetes mellitus without complications SNOMED: 99247667 (7) Noncompliance ICD Codes: Z91.19 - Patient's noncompliance with other medical treatment and regimen SNOMED: 9704830 (8) Diabetic ketoacidosis ICD Codes: E11.10 - Type 2 diabetes mellitus with ketoacidosis without coma SNOMED: 88901701, 692553327 (9) Pancytopenia ICD Codes: D61.818 - Other pancytopenia SNOMED: 474473830 (10) HIV (human immunodeficiency virus infection) ICD Codes: B20 - Human immunodeficiency virus [HIV] disease SNOMED: 14389220 (11) Liver hemangioma ICD Codes: D18.03 - Hemangioma of intra-abdominal structures SNOMED: 54823049 Kenney Friend Apr 26, 2020 12:07
[2020-04-26 16:00] VITALS: BP 149/91
--- NOTE | 2020-04-26 16:18 | Diagnostic Imaging Report ---
Indication: Lower extremity pain Technique: Grayscale and duplex images of the bilateral lower extremity veins Comparison: None Findings: Bilaterally, grayscale and duplex images demonstrate no evidence of intraluminal thrombus. Normal phasic Doppler waveforms, demonstrating normal augmentation response and no evidence of valvular insufficiency. Greater saphenous vein(s) and tibial veins are patent. Normal compressibility. Impression: Negative for evidence of lower extremity deep venous thrombosis bilaterally
[2020-04-26 20:00] VITALS: BP 147/89
--- NOTE | 2020-04-26 21:32 | Nephrology Progress Note ---
Assessment/Plan Problem List: (1) Abdominal pain (2) ESRD (end stage renal disease) (3) Hyperglycemia (4) Hypertensive urgency (5) HIV (human immunodeficiency virus infection) Plan HD 04/26 fluid removal, titrate bp meds, insulin adjusted Subjective Constitutional: Reports: no symptoms HEENT: Reports: no symptoms Genitourinary: Reports: no symptoms Neurologic/Psychiatric: Reports: no symptoms Objective Objective Last 24 Hour Vital Signs Date Time Temp Pulse Resp B/P (MAP) Pulse Ox O2 Delivery O2 Flow Rate FiO2 04/26/20 20:39 95 147/84 04/26/20 20:39 95 147/89 04/26/20 16:00 97.8 88 20 149/91 (110) 100 04/26/20 16:00 87 04/26/20 14:09 145/88 04/26/20 12:00 97.9 84 20 145/88 (107) 100 04/26/20 12:00 86 04/26/20 09:26 93 154/92 04/26/20 09:26 93 154/92 04/26/20 09:00 Room Air 2.0 04/26/20 08:00 94 04/26/20 08:00 98.1 93 20 154/92 (112) 100 04/26/20 05:53 138/74 04/26/20 04:00 91 04/26/20 04:00 98.5 90 20 131/70 (90) 98 04/26/20 00:00 99.1 91 20 132/72 (92) 94 04/26/20 00:00 92 04/25/20 23:00 147/89 04/25/20 22:16 164/109 Laboratory Tests 04/26/20 06:00: White Blood Count 5.4, Red Blood Count 2.86L, Hemoglobin 9.1L, Hematocrit 29.4L , Mean Corpuscular Volume 103H, Mean Corpuscular Hemoglobin 31.8H, Mean Corpuscular Hemoglobin Concent 31.0L, Red Cell Distribution Width 14.3, Platelet Count 196, Mean Platelet Volume 5.9L, Neutrophils (%) (Auto) 74.0, Lymphocytes (%) (Auto) 13.1L, Monocytes (%) (Auto) 7.5, Eosinophils (%) (Auto) 2.0, Basophils (%) (Auto) 3.4H, Sodium Level 125L, Potassium Level 5.4H, Chloride Level 87L, Carbon Dioxide Level 26, Anion Gap 12, Blood Urea Nitrogen 30H, Creatinine 7.3H, Estimat Glomerular Filtration Rate 10.9, Glucose Level 661 #*H, Calcium Level 8.9, Iron Level 102, Total Iron Binding Capacity 328, Percent Iron Saturation 31, Unsaturated Iron Binding 226, Vitamin B12 Level 1127H, Folate 12.1, Thyroid Stimulating Hormone (TSH) 1.088 Height (Feet): 5 Height (Inches): 9.00 Weight (Pounds): 152 General Appearance: no apparent distress, alert EENT: normal ENT inspection Neck: normal alignment Cardiovascular: normal rate, regular rhythm Respiratory/Chest: lungs clear Abdomen: non tender, soft Extremities: no edema 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
--- NOTE | 2020-04-26 22:16 | Cardiology Progress Note ---
Subjective DATE OF SERVICE: Apr 26, 2020 No SOB. No N/V BP more stable No c/o CP Completed for HD/UF yesterday Glucose elevated Lipase normal B12/folate/TSH normal MONITOR: sinus tachycardia nad sinus rhythm Objective Last 24 Hour Vital Signs Date Time Temp Pulse Resp B/P (MAP) Pulse Ox O2 Delivery O2 Flow Rate FiO2 04/26/20 21:52 139/85 04/26/20 20:39 95 147/84 04/26/20 20:39 95 147/89 04/26/20 20:00 98.8 95 19 147/89 (108) 100 04/26/20 16:00 97.8 88 20 149/91 (110) 100 04/26/20 16:00 87 04/26/20 14:09 145/88 04/26/20 12:00 97.9 84 20 145/88 (107) 100 04/26/20 12:00 86 04/26/20 09:26 93 154/92 04/26/20 09:26 93 154/92 04/26/20 09:00 Room Air 2.0 04/26/20 08:00 94 04/26/20 08:00 98.1 93 20 154/92 (112) 100 04/26/20 05:53 138/74 04/26/20 04:00 91 04/26/20 04:00 98.5 90 20 131/70 (90) 98 04/26/20 00:00 99.1 91 20 132/72 (92) 94 04/26/20 00:00 92 04/25/20 23:00 147/89 04/25/20 22:16 164/109 ROS: unchanged from my eval of 04/24/20 HEENT: normal ENT inspection RHYTHM: ST LUNGS: lungs clear bilaterally CARDIAC: regular rhythm, normal S1 and S2, rapid rate, tachycardia ABDOMEN: normal bowel sounds, non tender, soft, no organomegaly EXTREMITIES: non-tender, no calf tenderness, no swelling, No edema - Palpable bruit over dialysis access site Laboratory Tests Test 04/26/20 06:00 White Blood Count 5.4 K/UL (4.8-10.8) Red Blood Count 2.86 M/UL (4.70-6.10) L Hemoglobin 9.1 G/DL (14.2-18.0) L Hematocrit 29.4 % (42.0-52.0) L Mean Corpuscular Volume 103 FL (80-99) H Mean Corpuscular Hemoglobin 31.8 PG (27.0-31.0) H Mean Corpuscular Hemoglobin Concent 31.0 G/DL (32.0-36.0) L Red Cell Distribution Width 14.3 % (11.6-14.8) Platelet Count 196 K/UL (150-450) Mean Platelet Volume 5.9 FL (6.5-10.1) L Neutrophils (%) (Auto) 74.0 % (45.0-75.0) Lymphocytes (%) (Auto) 13.1 % (20.0-45.0) L Monocytes (%) (Auto) 7.5 % (1.0-10.0) Eosinophils (%) (Auto) 2.0 % (0.0-3.0) Basophils (%) (Auto) 3.4 % (0.0-2.0) H Sodium Level 125 MMOL/L (136-145) L Potassium Level 5.4 MMOL/L (3.5-5.1) H Chloride Level 87 MMOL/L (98-107) L Carbon Dioxide Level 26 MMOL/L (21-32) Anion Gap 12 mmol/L (5-15) Blood Urea Nitrogen 30 mg/dL (7-18) H Creatinine 7.3 MG/DL (0.55-1.30) H Estimat Glomerular Filtration Rate 10.9 mL/min (>60) Glucose Level 661 MG/DL (74-106) #*H Calcium Level 8.9 MG/DL (8.5-10.1) Iron Level 102 ug/dL (50-175) Total Iron Binding Capacity 328 ug/dL (250-450) Percent Iron Saturation 31 % (15-50) Unsaturated Iron Binding 226 ug/dL (112-346) Vitamin B12 Level 1127 PG/ML (193-986) H Folate 12.1 NG/ML (8.6-58.9) Thyroid Stimulating Hormone (TSH) 1.088 uiU/mL (0.358-3.740) Microbiology Date/Time Source Procedure Growth Status 04/24/20 18:11 Urine,Clean Catch Urine Culture - Preliminary Mixed Gram Positive Organism Resulted 04/24/20 21:00 Rectum Received Assessment/Plan Assessment/Plan Hypertensive urgency resolved, but still with suboptimal BP range. Abdominal Pain resolving ESRD Acute and chronic diastolic CHF Anemia of CKD with macrocytosis Acute myocardial ischemia resolving IRDM with hyperglycemia Sinus tachycardia resolving AntiHTN meds adjusted HD with UF PPI rx Insulin dose adjusted DC telemetry GI follow up if abdominal pain worsens Shamir Dunlap MD Apr 26, 2020 22:16
--- NOTE | 2020-04-26 22:39 | General Progress Note ---
Assessment/Plan Status: stable, progressing Assessment/Plan: GI CONSULT Assessment - Two days of diffuse abd pain and vomiting - Unrevealing blood work and CT scan - ESRD / HD - Anemia - HTN - hyperglycemia Recommendations - follow exam closely - PPI - Check stool studies - Check lactate and repeat acetone - check MRA of abdominal vasculature Thank you Alexander Curry MD Subjective Allergies: Coded Allergies: ASPIRIN (Unverified Allergy, Unknown, 02/08/20) Objective Last 24 Hour Vital Signs Date Time Temp Pulse Resp B/P (MAP) Pulse Ox O2 Delivery O2 Flow Rate FiO2 04/26/20 21:52 139/85 04/26/20 20:39 95 147/84 04/26/20 20:39 95 147/89 04/26/20 20:00 98.8 95 19 147/89 (108) 100 04/26/20 16:00 97.8 88 20 149/91 (110) 100 04/26/20 16:00 87 04/26/20 14:09 145/88 04/26/20 12:00 97.9 84 20 145/88 (107) 100 04/26/20 12:00 86 04/26/20 09:26 93 154/92 04/26/20 09:26 93 154/92 04/26/20 09:00 Room Air 2.0 04/26/20 08:00 94 04/26/20 08:00 98.1 93 20 154/92 (112) 100 04/26/20 05:53 138/74 04/26/20 04:00 91 04/26/20 04:00 98.5 90 20 131/70 (90) 98 04/26/20 00:00 99.1 91 20 132/72 (92) 94 04/26/20 00:00 92 04/25/20 23:00 147/89 Laboratory Tests 04/26/20 06:00: White Blood Count 5.4, Red Blood Count 2.86L, Hemoglobin 9.1L, Hematocrit 29.4L , Mean Corpuscular Volume 103H, Mean Corpuscular Hemoglobin 31.8H, Mean Corpuscular Hemoglobin Concent 31.0L, Red Cell Distribution Width 14.3, Platelet Count 196, Mean Platelet Volume 5.9L, Neutrophils (%) (Auto) 74.0, Lymphocytes (%) (Auto) 13.1L, Monocytes (%) (Auto) 7.5, Eosinophils (%) (Auto) 2.0, Basophils (%) (Auto) 3.4H, Sodium Level 125L, Potassium Level 5.4H, Chloride Level 87L, Carbon Dioxide Level 26, Anion Gap 12, Blood Urea Nitrogen 30H, Creatinine 7.3H, Estimat Glomerular Filtration Rate 10.9, Glucose Level 661 #*H, Calcium Level 8.9, Iron Level 102, Total Iron Binding Capacity 328, Percent Iron Saturation 31, Unsaturated Iron Binding 226, Vitamin B12 Level 1127H, Folate 12.1, Thyroid Stimulating Hormone (TSH) 1.088 Height (Feet): 5 Height (Inches): 9.00 Weight (Pounds): 152 Alexander Curry MD Apr 26, 2020 22:39
--- NOTE | 2020-04-26 23:45 | Consultation ---
DATE OF CONSULTATION: 04/24/2020 CARDIOLOGY CONSULTATION CONSULTING PHYSICIAN: Shamir Dunlap M.D. REQUESTING PHYSICIAN: Ben Ibarra M.D. REASON: Tachycardia. HISTORY OF PRESENT ILLNESS: This is a patient with end-stage renal disease, who has been on hemodialysis for the last 3 years. He presented to the hospital complaining of abdominal pain awakening him in the morning. He describes it as severe and persistent. He has been noting some blood-tinged material from episodes of emesis. He has not had any diarrhea. He was seen in the emergency room. He has been noted to have an unremarkable CAT scan of the abdomen as well as a normal lipase level. He also was noted to have tachyarrhythmia prompting this consultation. He denies chest pain or shortness of breath. PAST MEDICAL HISTORY: Hypertension, end-stage renal disease, insulin-requiring diabetes mellitus, chronic diabetic neuropathy, history of AV fistula, anemia of chronic kidney disease. ALLERGIES: None. MEDICATIONS: Reviewed. FAMILY HISTORY: Noncontributory. SOCIAL HISTORY: Negative for smoking, alcohol, or substance abuse. REVIEW OF SYSTEMS: No history of endocarditis, cardiac arrhythmias, rheumatic heart disease, or heart failure. No history of abnormal blood clotting. No history of COPD. No history of seizure or stroke. No known history of thyroid disease. PHYSICAL EXAMINATION: VITAL SIGNS: Blood pressure 176/114, pulse 11, respirations 20, afebrile. NECK: Jugular venous pressure normal. No bruits. LUNGS: Clear. CARDIAC: Regular rhythm. Rapid rate. Normal S1, S2 with a fourth heart sound. ABDOMEN: Soft. No guarding. Diffusely tender. No rebound. EXTREMITIES: No clubbing, cyanosis, or edema. Palpable bruit over AV fistula. LABORATORY AND DIAGNOSTIC DATA: EKG with sinus tachycardia. BUN 39, creatinine 7.6, hemoglobin 9.2. IMPRESSION: 1. Hypertensive urgency. 2. Abdominal pain of unclear etiology, but no signs of acute abdomen. 3. Insulin-requiring diabetes mellitus. 4. Sinus tachycardia. PLAN: 1. Pain control. 2. Cardiac monitoring. 3. Hemodialysis with ultrafiltration. 4. Maintenance IV fluids while NPO. 5. DVT prophylaxis. 6. Metabolic profile. Shamir Dunlap M.D. DR: FABRIZIO JOB#: [id number] CC:
[2020-04-27] VITALS: BP 153/91
--- NOTE | 2020-04-27 01:00 | Consultation ---
DATE OF CONSULTATION: 04/26/2020 GASTROENTEROLOGY CONSULTATION REPORT CONSULTING PHYSICIAN: Alexander Curry MD. CHIEF COMPLAINT: I was asked to see this patient by Dr. Ben Ibarra for evaluation of abdominal pain. HISTORY OF PRESENT ILLNESS: The patient is a 29-year-old man with multiple medical problems including hypertension, diabetes, HIV, and end-stage renal disease on dialysis, who comes in to the hospital with a 2-day history of diffuse abdominal pain and vomiting. The patient states that he was in his usual state of health until above happened and he finally had come to the emergency room for further evaluation and care. He denies any hematemesis or diarrhea. He says the pain is diffuse and without any focality. He does not have any fevers or cough or shortness of breath. He has had a past history of DKA, but his acetones were negative on this admission. He has not had appendectomy or cholecystectomy. He had a CT scan of the abdomen and pelvis in the emergency room, which was unremarkable. PAST MEDICAL HISTORY: Known for history of diabetes, history of HIV, history of hypertension, end-stage renal disease, anemia. FAMILY HISTORY: Noncontributory. SOCIAL HISTORY: The patient does not have any history of smoking or drinking. ALLERGIES: None. REVIEW OF SYSTEMS: Otherwise negative. PHYSICAL EXAMINATION: GENERAL: Very pleasant young man, seen in his room, in no distress. He had eaten some of his solid diet. HEENT: Normocephalic and atraumatic. NECK: Supple. CHEST: Clear to auscultation. CARDIOVASCULAR: Revealed a regular rate. ABDOMEN: Soft and nondistended. There is diffuse tenderness to palpation throughout the stomach without any focality or masses. EXTREMITIES: Revealed no edema. LABORATORY DATA: Noted. CT scan was reviewed. ASSESSMENT: This patient presents with diffuse abdominal pain, and nausea and vomiting of unclear etiology. There are no laboratory parameters or imaging findings, which suggests a significant pathology. The differential diagnosis will include simple viral gastroenteritis versus bacterial enteritis. Ischemic bowel could potentially present with severe abdominal pain, but there are no radiographic signs of ischemic bowel and also he is somewhat young to this problem. However, his lactate level is to be checked and also MR angiogram ordered. In the meantime, his abdominal exam and his laboratory parameters should be followed very closely. Repeat acetone will be ordered for tomorrow since today's glycemic numbers are much worse than yesterday. Surgical consultation has already seen the patient and will be following closely. Proton-pump inhibitor will be advisable as well. RECOMMENDATIONS: Per above discussion and per orders written in the chart. Thank you for asking me to participate in the care of this patient. Alexander Curry M.D. DR: KENYATTA JOB#: [id number] CC:
[2020-04-27] MEDS: HYDROmorphone 1mg/ml Carpuject IVP PRN ×6 (01:19→22:21)
[2020-04-27] MEDS: DiphenhydrAMINE 50mg/ml Inj IVP PRN ×6 (02:04→22:20)
[2020-04-27 04:00] VITALS: BP 149/85
[2020-04-27] MEDS: HydrALAZINE 50mg tab ORAL SCH ×3 (06:08→22:20)
[2020-04-27] MEDS: NovoLOG Insulin Flexpen SUBQ SCH ×4 (06:22→21:00)
[2020-04-27] MEDS: Levemir Flexpen SUBQ SCH ×2 (06:30→11:54)
[2020-04-27 07:32] LABS: BASOPHILS % (AUTO) 4.6 % (0.0-2.0); EOSINOPHILS % (AUTO) 2.9 % (0.0-3.0); HEMATOCRIT 32.4 % (42.0-52.0); HEMOGLOBIN 10.3 G/DL (14.2-18.0); LYMPHOCYTES % (AUTO) 15.9 % (20.0-45.0); MEAN CORPUSCULAR VOLUME 99 FL (80-99); MONOCYTES % (AUTO) 8.1 % (1.0-10.0); NEUTROPHILS % (AUTO) 68.6 % (45.0-75.0); PLATELET COUNT 204 K/UL (150-450); RED BLOOD COUNT 3.29 M/UL (4.70-6.10); RED CELL DISTRIBUTION WIDTH 13.6 % (11.6-14.8); WHITE BLOOD COUNT 5.1 K/UL (4.8-10.8)
[2020-04-27 07:41] LABS: ALANINE AMINOTRANSFERASE 53 U/L (12-78); ALBUMIN 4.3 G/DL (3.4-5.0); ALKALINE PHOSPHATASE 159 U/L (46-116); AMYLASE 86 U/L (25-115); ANION GAP 11 mmol/L (5-15); ASPARTATE AMINO TRANSFERASE 39 U/L (15-37); BILIRUBIN,TOTAL 0.6 MG/DL (0.2-1.0); BLOOD UREA NITROGEN 22 mg/dL (7-18); CALCIUM 8.6 MG/DL (8.5-10.1); CARBON DIOXIDE 28 MMOL/L (21-32); CHLORIDE 90 MMOL/L (98-107); CREATININE 6.2 MG/DL (0.55-1.30); POTASSIUM 4.4 MMOL/L (3.5-5.1); SODIUM 129 MMOL/L (136-145)
[2020-04-27 08:00] VITALS: BP 158/99
--- NOTE | 2020-04-27 09:11 | General Progress Note ---
Assessment/Plan Problem List: (1) Type 1 diabetes ICD Codes: E10.9 - Type 1 diabetes mellitus without complications SNOMED: 75338188 (2) Uncontrolled hypertension ICD Codes: I10 - Essential (primary) hypertension SNOMED: 28599999, 59061306 (3) Noncompliance ICD Codes: Z91.19 - Patient's noncompliance with other medical treatment and regimen SNOMED: 8805818 (4) Hyperglycemia ICD Codes: R73.9 - Hyperglycemia, unspecified SNOMED: 49927066 (5) ESRD (end stage renal disease) ICD Codes: N18.6 - End stage renal disease SNOMED: 93281365 (6) Abdominal pain ICD Codes: R10.9 - Unspecified abdominal pain SNOMED: 91988501 (7) Hypertensive urgency ICD Codes: I16.0 - Hypertensive urgency SNOMED: 034128326 Status: stable, progressing Assessment/Plan: Continue current treatment. MRA and abdominal ultrasound today. Continue pain treatment. Serial abdominal exams Titrate antihypertensive regimen Increase Levemir Monitor blood sugars Hemodialysis per renal Subjective ROS Limited/Unobtainable: No Constitutional: Reports: malaise, weakness HEENT: Reports: no symptoms Cardiovascular: Reports: no symptoms Respiratory: Reports: no symptoms Gastrointestinal/Abdominal: Reports: abdominal pain Genitourinary: Reports: no symptoms Neurologic/Psychiatric: Reports: no symptoms Endocrine: Reports: no symptoms Hematologic/Lymphatic: Reports: anemia Allergies: Coded Allergies: ASPIRIN (Unverified Allergy, Unknown, 02/08/20) All Systems: reviewed and negative except above Subjective There have been no overnight events. GI surgery and cardiology consultations appreciated. Patient continues to complain of severe abdominal pain requiring IV pain medications. No fevers or chills. No chest pain or shortness of breath. Blood sugars remain labile but are mostly high. No vomiting. MRa and abdominal ultrasound are pending for today. Objective Last 24 Hour Vital Signs Date Time Temp Pulse Resp B/P (MAP) Pulse Ox O2 Delivery O2 Flow Rate FiO2 04/27/20 08:00 98.1 88 20 158/99 (118) 97 04/27/20 06:08 149/88 04/27/20 04:00 98.4 88 20 149/85 (106) 100 04/27/20 04:00 88 04/27/20 00:00 98.1 92 21 153/91 (111) 99 04/27/20 00:00 89 04/26/20 21:52 139/85 04/26/20 21:00 Room Air 2.0 04/26/20 20:39 95 147/84 04/26/20 20:39 95 147/89 04/26/20 20:00 98.8 95 19 147/89 (108) 100 04/26/20 20:00 96 04/26/20 16:00 97.8 88 20 149/91 (110) 100 04/26/20 16:00 87 04/26/20 14:09 145/88 04/26/20 12:00 97.9 84 20 145/88 (107) 100 04/26/20 12:00 86 04/26/20 09:26 93 154/92 04/26/20 09:26 93 154/92 Intake and Output 04/26/20 04/27/20 19:00 07:00 Output Total 3000 ml Balance -3000 ml Output Hemodialysis UF 3000 ml Laboratory Tests 04/27/20 06:02: White Blood Count 5.1, Red Blood Count 3.29L, Hemoglobin 10.3L, Hematocrit 32.4L , Mean Corpuscular Volume 99, Mean Corpuscular Hemoglobin 31.3H, Mean Corpuscular Hemoglobin Concent 31.7L, Red Cell Distribution Width 13.6, Platelet Count 204, Mean Platelet Volume 6.7, Neutrophils (%) (Auto) 68.6, Lymphocytes (%) (Auto) 15.9L, Monocytes (%) (Auto) 8.1, Eosinophils (%) (Auto) 2.9, Basophils (%) (Auto) 4.6H, Erythrocyte Sedimentation Rate 33H, Prothrombin Time 10.7, Prothromb Time International Ratio 1.0, Activated Partial Thromboplast Time 25, Sodium Level 129L, Potassium Level 4.4, Chloride Level 90L , Carbon Dioxide Level 28, Anion Gap 11, Blood Urea Nitrogen 22H, Creatinine 6.2H, Estimat Glomerular Filtration Rate 13.2, Glucose Level 401#H, Lactic Acid Level 0.60, Calcium Level 8.6, Total Bilirubin 0.6, Aspartate Amino Transf (AST/ SGOT) 39H, Alanine Aminotransferase (ALT/SGPT) 53, Alkaline Phosphatase 159H, C- Reactive Protein, Quantitative < 0.4, Total Protein 8.7H, Albumin 4.3, Globulin 4.4, Albumin/Globulin Ratio 1.0, Amylase Level 86, Lipase 76, Acetone Level Negative Height (Feet): 5 Height (Inches): 9.00 Weight (Pounds): 152 Objective General Appearance: WD/WN, alert, thin EENT: normal ENT inspection Neck: non-tender, normal alignment, supple Cardiovascular: normal peripheral pulses, normal rate Respiratory/Chest: chest wall non-tender, lungs clear, normal breath sounds, no respiratory distress, no accessory muscle use Abdomen: normal bowel sounds, soft, no organomegaly, no mass, tender Edema: no edema noted Arm (L), no edema noted Arm (R) 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
[2020-04-27] MEDS ORDERED: LORazepam Inj 2mg/ml 1ml IV SCH (09:30)
[2020-04-27] MEDS: Pantoprazole Inj IVP SCH ×2 (10:08→21:26)
[2020-04-27] MEDS: Metoprolol Tartrate 50mg tab ORAL SCH ×2 (10:08→21:28)
[2020-04-27 12:00] VITALS: BP 146/92
[2020-04-27] MEDS ORDERED: HUMALOG100 UNIT/4 SUBQ (13:21)
[2020-04-27] MEDS ORDERED: HYDRALAZINE HC100 MG ORAL (13:21)
[2020-04-27] MEDS ORDERED: NORMODYNE200 MG ORAL (13:22)
[2020-04-27] MEDS ORDERED: NIFEDIPINE ER90 M2 ORAL (13:24)
[2020-04-27] MEDS ORDERED: TUMS200 M1 PO (13:24)
[2020-04-27] MEDS ORDERED: TRAZODONE HCL50 MG ORAL (13:24)
[2020-04-27] MEDS ORDERED: TRAMADOL HCL50 MG ORAL (13:25)
--- NOTE | 2020-04-27 14:08 | Diagnostic Imaging Report ---
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 No masses or unusual calcifications Impression: No acute process
--- NOTE | 2020-04-27 14:22 | Diagnostic Imaging Report ---
Indication: Abdominal pain, abnormal liver function tests and renal function tests Technique: [place]-scale and duplex images of the upper abdomen were obtained Comparison: 01/21/2020 Findings: Gallbladder is unremarkable, without stones, wall thickening, nor pericholecystic fluid. Sonographic Sabillon's sign is negative. Common bile duct measures 3 mm in diameter. No intrahepatic biliary ductal dilatation. Liver demonstrates normal echogenicity, no focal abnormality. There is a prominent Ed's lobe Previously demonstrated right lobe hyperechoic focus is not evident currently. Portal vein and hepatic veins are patent. Pancreas is unremarkable. Spleen is unremarkable. Left kidney measures 9.6 cm in length. Right kidney measures 9.1 cm length. Both kidneys demonstrate slightly increased echogenicity. There is no hydronephrosis. No focal abnormality. Echogenic focus in the left lower pole probably does not represent a calcification as noted are evident on recent CT. . Non-aneurysmal abdominal aorta . Ascites demonstrated on recent CT scan is not evident Impression: Negative for gallstones or dilated bile ducts. Slightly increased renal echogenicity, also previously reported, may reflect chronic medical renal disease
--- NOTE | 2020-04-27 14:50 | Surgery Progress Note ---
Surgery Progress Note Subjective Symptoms: improved, tolerating diet, passing flatus, BM Objective Last 24 Hour Vital Signs Date Time Temp Pulse Resp B/P (MAP) Pulse Ox O2 Delivery O2 Flow Rate FiO2 04/27/20 14:11 146/92 04/27/20 12:00 98.1 89 18 146/92 (110) 98 04/27/20 12:00 89 04/27/20 10:08 88 158/99 04/27/20 10:08 88 158/99 04/27/20 09:30 88 20 158/99 97 04/27/20 09:00 Nasal Cannula 2.0 04/27/20 08:00 98.1 88 20 158/99 (118) 97 04/27/20 08:00 90 04/27/20 06:08 149/88 04/27/20 04:00 98.4 88 20 149/85 (106) 100 04/27/20 04:00 88 04/27/20 00:00 98.1 92 21 153/91 (111) 99 04/27/20 00:00 89 04/26/20 21:52 139/85 04/26/20 21:00 Room Air 2.0 04/26/20 20:39 95 147/84 04/26/20 20:39 95 147/89 04/26/20 20:00 98.8 95 19 147/89 (108) 100 04/26/20 20:00 96 04/26/20 16:00 97.8 88 20 149/91 (110) 100 04/26/20 16:00 87 I&O Intake and Output 04/26/20 04/27/20 19:00 07:00 Output Total 3000 ml Balance -3000 ml Output Hemodialysis UF 3000 ml Cardiovascular: RSR Respiratory: clear Abdomen: soft, non-tender, present bowel sounds, non-distended Extremities: no edema, no tenderness, no cyanosis Laboratory Tests Test 04/26/20 16:37 04/27/20 06:02 POC Whole Blood Glucose 96 MG/DL (74-106) White Blood Count 5.1 K/UL (4.8-10.8) Red Blood Count 3.29 M/UL (4.70-6.10) L Hemoglobin 10.3 G/DL (14.2-18.0) L Hematocrit 32.4 % (42.0-52.0) L Mean Corpuscular Volume 99 FL (80-99) Mean Corpuscular Hemoglobin 31.3 PG (27.0-31.0) H Mean Corpuscular Hemoglobin Concent 31.7 G/DL (32.0-36.0) L Red Cell Distribution Width 13.6 % (11.6-14.8) Platelet Count 204 K/UL (150-450) Mean Platelet Volume 6.7 FL (6.5-10.1) Neutrophils (%) (Auto) 68.6 % (45.0-75.0) Lymphocytes (%) (Auto) 15.9 % (20.0-45.0) L Monocytes (%) (Auto) 8.1 % (1.0-10.0) Eosinophils (%) (Auto) 2.9 % (0.0-3.0) Basophils (%) (Auto) 4.6 % (0.0-2.0) H Erythrocyte Sedimentation Rate 33 MM/HR (0-15) H Prothrombin Time 10.7 SEC (9.30-11.50) Prothromb Time International Ratio 1.0 (0.9-1.1) Activated Partial Thromboplast Time 25 SEC (23-33) Sodium Level 129 MMOL/L (136-145) L Potassium Level 4.4 MMOL/L (3.5-5.1) Chloride Level 90 MMOL/L (98-107) L Carbon Dioxide Level 28 MMOL/L (21-32) Anion Gap 11 mmol/L (5-15) Blood Urea Nitrogen 22 mg/dL (7-18) H Creatinine 6.2 MG/DL (0.55-1.30) H Estimat Glomerular Filtration Rate 13.2 mL/min (>60) Glucose Level 401 MG/DL (74-106) #H Lactic Acid Level 0.60 mmol/L (0.4-2.0) Calcium Level 8.6 MG/DL (8.5-10.1) Total Bilirubin 0.6 MG/DL (0.2-1.0) Aspartate Amino Transf (AST/SGOT) 39 U/L (15-37) H Alanine Aminotransferase (ALT/SGPT) 53 U/L (12-78) Alkaline Phosphatase 159 U/L (46-116) H C-Reactive Protein, Quantitative < 0.4 mg/dL (0.00-0.90) Total Protein 8.7 G/DL (6.4-8.2) H Albumin 4.3 G/DL (3.4-5.0) Globulin 4.4 g/dL Albumin/Globulin Ratio 1.0 (1.0-2.7) Amylase Level 86 U/L (25-115) Lipase 76 U/L (73-393) Acetone Level Negative (NEGATIVE) Plan Problems: (1) Uncontrolled hypertension (2) Hyperglycemia (3) ESRD (end stage renal disease) (4) Abdominal pain Assessment & Plan: 29-year-old male with generalized nominal pain cramping. Afebrile, hemodynamic stable CT reviewed no acute findings Abdominal exam is fairly benign no tenderness no peritonitis small reducible umbilical hernia but does state uncomfortable on examination palpation Currently no nausea vomiting fever chills Labs noted Abdominal ultrasound ordered Okay for diet from surgical standpoint No acute surgical intervention at this time We will follow with recommendations and serial abdominal examinations Thank you for allowing me to participate in patient's care improving US noted ABDOMEN: Liver: Unremarkable. Gallbladder and bile ducts: Unremarkable. No calcified stones. No ductal dilation. Pancreas: Unremarkable. No ductal dilation. Spleen: Unremarkable. No splenomegaly. Adrenals: Unremarkable. No mass. Kidneys and ureters: Unremarkable. No obstructing stones. No hydronephrosis. Stomach and bowel: Small hiatal hernia. Unremarkable. No obstruction. No mucosal thickening. PELVIS: Appendix: The appendix is normal (111). Bladder: The urinary bladder wall appears thickened however this may be accentuated by the lack of distention. Reproductive: Unremarkable as visualized. ABDOMEN and PELVIS: Intraperitoneal space: No free intraperitoneal air. Mild volume ascites, decreased in volume compared to the prior study. Bones/joints: Osseous structures are unremarkable. Soft tissues: Anasarca is present, decreased compared to the prior study. Vasculature: Unremarkable. No abdominal aortic aneurysm. Lymph nodes: Prominent external iliac and inguinal lymph nodes are identified, likely reactive, stable. IMPRESSION: 1. No acute findings identified within the abdomen or pelvis to explain the patient's abdominal pain. No evidence of bowel obstruction. 2. Mild volume ascites. Small pericardial effusion, stable. (5) Hypertensive urgency (6) Type 1 diabetes (7) Noncompliance (8) Diabetic ketoacidosis (9) Pancytopenia (10) HIV (human immunodeficiency virus infection) (11) Liver hemangioma Kenney Friend Apr 27, 2020 14:50
[2020-04-27 16:00] VITALS: BP 170/105
--- NOTE | 2020-04-27 18:25 | Nephrology Progress Note ---
Assessment/Plan Problem List: (1) Abdominal pain (2) ESRD (end stage renal disease) (3) Hyperglycemia (4) Hypertensive urgency (5) HIV (human immunodeficiency virus infection) Plan HD 04/26 fluid removal, titrate bp meds, insulin adjusted Subjective Constitutional: Reports: weakness HEENT: Reports: no symptoms Genitourinary: Reports: no symptoms Neurologic/Psychiatric: Reports: no symptoms Objective Objective Last 24 Hour Vital Signs Date Time Temp Pulse Resp B/P (MAP) Pulse Ox O2 Delivery O2 Flow Rate FiO2 04/27/20 18:14 170/105 04/27/20 16:00 98.1 93 20 170/105 (126) 97 04/27/20 16:00 92 04/27/20 14:11 146/92 04/27/20 12:00 98.1 89 18 146/92 (110) 98 04/27/20 12:00 89 04/27/20 10:08 88 158/99 04/27/20 10:08 88 158/99 04/27/20 09:30 88 20 158/99 97 04/27/20 09:00 Nasal Cannula 2.0 04/27/20 08:00 98.1 88 20 158/99 (118) 97 04/27/20 08:00 90 04/27/20 06:08 149/88 04/27/20 04:00 98.4 88 20 149/85 (106) 100 04/27/20 04:00 88 04/27/20 00:00 98.1 92 21 153/91 (111) 99 04/27/20 00:00 89 04/26/20 21:52 139/85 04/26/20 21:00 Room Air 2.0 04/26/20 20:39 95 147/84 04/26/20 20:39 95 147/89 04/26/20 20:00 98.8 95 19 147/89 (108) 100 04/26/20 20:00 96 Intake and Output 04/26/20 04/27/20 19:00 07:00 Output Total 3000 ml Balance -3000 ml Output Hemodialysis UF 3000 ml Laboratory Tests 04/27/20 06:02: White Blood Count 5.1, Red Blood Count 3.29L, Hemoglobin 10.3L, Hematocrit 32.4L , Mean Corpuscular Volume 99, Mean Corpuscular Hemoglobin 31.3H, Mean Corpuscular Hemoglobin Concent 31.7L, Red Cell Distribution Width 13.6, Platelet Count 204, Mean Platelet Volume 6.7, Neutrophils (%) (Auto) 68.6, Lymphocytes (%) (Auto) 15.9L, Monocytes (%) (Auto) 8.1, Eosinophils (%) (Auto) 2.9, Basophils (%) (Auto) 4.6H, Erythrocyte Sedimentation Rate 33H, Prothrombin Time 10.7, Prothromb Time International Ratio 1.0, Activated Partial Thromboplast Time 25, Sodium Level 129L, Potassium Level 4.4, Chloride Level 90L , Carbon Dioxide Level 28, Anion Gap 11, Blood Urea Nitrogen 22H, Creatinine 6.2H, Estimat Glomerular Filtration Rate 13.2, Glucose Level 401#H, Lactic Acid Level 0.60, Calcium Level 8.6, Total Bilirubin 0.6, Aspartate Amino Transf (AST/ SGOT) 39H, Alanine Aminotransferase (ALT/SGPT) 53, Alkaline Phosphatase 159H, C- Reactive Protein, Quantitative < 0.4, Total Protein 8.7H, Albumin 4.3, Globulin 4.4, Albumin/Globulin Ratio 1.0, Amylase Level 86, Lipase 76, Acetone Level Negative Height (Feet): 5 Height (Inches): 9.00 Weight (Pounds): 152 General Appearance: no apparent distress, alert EENT: normal ENT inspection Neck: normal alignment Cardiovascular: regular rhythm, systolic murmur Respiratory/Chest: lungs clear Abdomen: soft, no organomegaly Extremities: no edema 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
[2020-04-27 20:00] VITALS: BP 143/86
--- NOTE | 2020-04-27 23:14 | General Progress Note ---
Assessment/Plan Status: stable, progressing Assessment/Plan: Assessment - Two days of diffuse abd pain and vomiting - improving - Unrevealing blood work and CT scan and abdominal ultrasound - ESRD / HD - Anemia - HTN - hyperglycemia Recommendations - follow exam closely - PPI - Check stool studies - Check lactate and repeat acetone --> both negative - will contrast CT mesenteric angio if symptoms persist Subjective Allergies: Coded Allergies: ASPIRIN (Unverified Allergy, Unknown, 02/08/20) Subjective Feels better less pain resting comfortably unable to do contrast MRA due to renal failure Objective Last 24 Hour Vital Signs Date Time Temp Pulse Resp B/P (MAP) Pulse Ox O2 Delivery O2 Flow Rate FiO2 04/27/20 22:20 147/91 04/27/20 21:28 87 143/86 04/27/20 21:27 87 143/86 04/27/20 18:14 170/105 04/27/20 16:00 98.1 93 20 170/105 (126) 97 04/27/20 16:00 92 04/27/20 14:11 146/92 04/27/20 12:00 98.1 89 18 146/92 (110) 98 04/27/20 12:00 89 04/27/20 10:08 88 158/99 04/27/20 10:08 88 158/99 04/27/20 09:30 88 20 158/99 97 04/27/20 09:00 Nasal Cannula 2.0 04/27/20 08:00 98.1 88 20 158/99 (118) 97 04/27/20 08:00 90 04/27/20 06:08 149/88 04/27/20 04:00 98.4 88 20 149/85 (106) 100 04/27/20 04:00 88 04/27/20 00:00 98.1 92 21 153/91 (111) 99 04/27/20 00:00 89 Intake and Output 04/26/20 04/27/20 19:00 07:00 Output Total 3000 ml Balance -3000 ml Output Hemodialysis UF 3000 ml Laboratory Tests 04/27/20 06:02: White Blood Count 5.1, Red Blood Count 3.29L, Hemoglobin 10.3L, Hematocrit 32.4L , Mean Corpuscular Volume 99, Mean Corpuscular Hemoglobin 31.3H, Mean Corpuscular Hemoglobin Concent 31.7L, Red Cell Distribution Width 13.6, Platelet Count 204, Mean Platelet Volume 6.7, Neutrophils (%) (Auto) 68.6, Lymphocytes (%) (Auto) 15.9L, Monocytes (%) (Auto) 8.1, Eosinophils (%) (Auto) 2.9, Basophils (%) (Auto) 4.6H, Erythrocyte Sedimentation Rate 33H, Prothrombin Time 10.7, Prothromb Time International Ratio 1.0, Activated Partial Thromboplast Time 25, Sodium Level 129L, Potassium Level 4.4, Chloride Level 90L , Carbon Dioxide Level 28, Anion Gap 11, Blood Urea Nitrogen 22H, Creatinine 6.2H, Estimat Glomerular Filtration Rate 13.2, Glucose Level 401#H, Lactic Acid Level 0.60, Calcium Level 8.6, Total Bilirubin 0.6, Aspartate Amino Transf (AST/ SGOT) 39H, Alanine Aminotransferase (ALT/SGPT) 53, Alkaline Phosphatase 159H, C- Reactive Protein, Quantitative < 0.4, Total Protein 8.7H, Albumin 4.3, Globulin 4.4, Albumin/Globulin Ratio 1.0, Amylase Level 86, Lipase 76, Acetone Level Negative Height (Feet): 5 Height (Inches): 9.00 Weight (Pounds): 152 Objective WDWN NCAT supple CTA RRR abd soft ND, improved TTP compared to yesterday no edema Alexander Curry MD Apr 27, 2020 23:14
[2020-04-28] VITALS: BP 136/81
--- NOTE | 2020-04-28 01:54 | Cardiology Progress Note ---
Subjective DATE OF SERVICE: Apr 27, 2020 No SOB. No N/V. He continues to have abdominal pain. BP more stable No c/o CP Completed for HD/UF yesterday Glucose elevated Lipase normal B12/folate/TSH normal Objective Last 24 Hour Vital Signs Date Time Temp Pulse Resp B/P (MAP) Pulse Ox O2 Delivery O2 Flow Rate FiO2 04/28/20 00:00 86 04/28/20 00:00 98.7 85 17 136/81 (99) 99 04/27/20 22:20 147/91 04/27/20 21:28 87 143/86 04/27/20 21:27 87 143/86 04/27/20 20:00 85 04/27/20 20:00 99.1 87 20 143/86 (105) 99 04/27/20 18:14 170/105 04/27/20 16:00 98.1 93 20 170/105 (126) 97 04/27/20 16:00 92 04/27/20 14:11 146/92 04/27/20 12:00 98.1 89 18 146/92 (110) 98 04/27/20 12:00 89 04/27/20 10:08 88 158/99 04/27/20 10:08 88 158/99 04/27/20 09:30 88 20 158/99 97 04/27/20 09:00 Nasal Cannula 2.0 04/27/20 08:00 98.1 88 20 158/99 (118) 97 04/27/20 08:00 90 04/27/20 06:08 149/88 04/27/20 04:00 98.4 88 20 149/85 (106) 100 04/27/20 04:00 88 ROS: unchanged from my eval of 04/24/20 HEENT: normal ENT inspection RHYTHM: ST LUNGS: lungs clear bilaterally CARDIAC: regular rhythm, normal S1 and S2, rapid rate, tachycardia ABDOMEN: normal bowel sounds, non tender, soft, no organomegaly EXTREMITIES: non-tender, no calf tenderness, no swelling, No edema - Palpable bruit over dialysis access site Laboratory Tests Test 04/27/20 06:02 White Blood Count 5.1 K/UL (4.8-10.8) Red Blood Count 3.29 M/UL (4.70-6.10) L Hemoglobin 10.3 G/DL (14.2-18.0) L Hematocrit 32.4 % (42.0-52.0) L Mean Corpuscular Volume 99 FL (80-99) Mean Corpuscular Hemoglobin 31.3 PG (27.0-31.0) H Mean Corpuscular Hemoglobin Concent 31.7 G/DL (32.0-36.0) L Red Cell Distribution Width 13.6 % (11.6-14.8) Platelet Count 204 K/UL (150-450) Mean Platelet Volume 6.7 FL (6.5-10.1) Neutrophils (%) (Auto) 68.6 % (45.0-75.0) Lymphocytes (%) (Auto) 15.9 % (20.0-45.0) L Monocytes (%) (Auto) 8.1 % (1.0-10.0) Eosinophils (%) (Auto) 2.9 % (0.0-3.0) Basophils (%) (Auto) 4.6 % (0.0-2.0) H Erythrocyte Sedimentation Rate 33 MM/HR (0-15) H Prothrombin Time 10.7 SEC (9.30-11.50) Prothromb Time International Ratio 1.0 (0.9-1.1) Activated Partial Thromboplast Time 25 SEC (23-33) Sodium Level 129 MMOL/L (136-145) L Potassium Level 4.4 MMOL/L (3.5-5.1) Chloride Level 90 MMOL/L (98-107) L Carbon Dioxide Level 28 MMOL/L (21-32) Anion Gap 11 mmol/L (5-15) Blood Urea Nitrogen 22 mg/dL (7-18) H Creatinine 6.2 MG/DL (0.55-1.30) H Estimat Glomerular Filtration Rate 13.2 mL/min (>60) Glucose Level 401 MG/DL (74-106) #H Lactic Acid Level 0.60 mmol/L (0.4-2.0) Calcium Level 8.6 MG/DL (8.5-10.1) Total Bilirubin 0.6 MG/DL (0.2-1.0) Aspartate Amino Transf (AST/SGOT) 39 U/L (15-37) H Alanine Aminotransferase (ALT/SGPT) 53 U/L (12-78) Alkaline Phosphatase 159 U/L (46-116) H C-Reactive Protein, Quantitative < 0.4 mg/dL (0.00-0.90) Total Protein 8.7 G/DL (6.4-8.2) H Albumin 4.3 G/DL (3.4-5.0) Globulin 4.4 g/dL Albumin/Globulin Ratio 1.0 (1.0-2.7) Amylase Level 86 U/L (25-115) Lipase 76 U/L (73-393) Acetone Level Negative (NEGATIVE) Assessment/Plan Assessment/Plan Hypertensive urgency resolved, but still with suboptimal BP range. Abdominal Pain resolving ESRD Acute and chronic diastolic CHF Anemia of CKD with macrocytosis Acute myocardial ischemia resolving IRDM with hyperglycemia Sinus tachycardia resolving AntiHTN meds adjusted further HD with UF PPI rx Insulin dose adjusted GI follow up if abdominal pain worsens - for mesenteric angio Shamir Dunlap MD Apr 28, 2020 01:54
[2020-04-28] MEDS: DiphenhydrAMINE 50mg/ml Inj IVP PRN ×5 (02:29→19:53)
[2020-04-28] MEDS: HYDROmorphone 1mg/ml Carpuject IVP PRN ×5 (02:30→19:54)
[2020-04-28 04:00] VITALS: BP 142/79
[2020-04-28] MEDS: NovoLOG Insulin Flexpen SUBQ SCH ×4 (06:09→21:17)
[2020-04-28] MEDS: Levemir Flexpen SUBQ SCH ×3 (06:09→11:54)
[2020-04-28] MEDS: HydrALAZINE 50mg tab ORAL SCH ×2 (06:10→14:00)
[2020-04-28 07:33] LABS: EOSINOPHILS % (AUTO) 4.7 % (0.0-3.0); HEMATOCRIT 29.4 % (42.0-52.0); HEMOGLOBIN 9.8 G/DL (14.2-18.0); LYMPHOCYTES % (AUTO) 20.5 % (20.0-45.0); MEAN CORPUSCULAR VOLUME 97 FL (80-99); MONOCYTES % (AUTO) 8.3 % (1.0-10.0); NEUTROPHILS % (AUTO) 63.4 % (45.0-75.0); PLATELET COUNT 185 K/UL (150-450); RED BLOOD COUNT 3.04 M/UL (4.70-6.10); WHITE BLOOD COUNT 4.8 K/UL (4.8-10.8)
[2020-04-28 07:41] LABS: ANION GAP 14 mmol/L (5-15); BLOOD UREA NITROGEN 35 mg/dL (7-18); CALCIUM 8.7 MG/DL (8.5-10.1); CARBON DIOXIDE 25 MMOL/L (21-32); CHLORIDE 86 MMOL/L (98-107); CREATININE 8.9 MG/DL (0.55-1.30); POTASSIUM 5.2 MMOL/L (3.5-5.1); SODIUM 125 MMOL/L (136-145)
[2020-04-28 08:00] VITALS: BP 159/102
[2020-04-28] MEDS: Pantoprazole Inj IVP SCH ×2 (08:56→21:13)
[2020-04-28] MEDS: Metoprolol Tartrate 50mg tab ORAL SCH ×2 (09:00→21:18)
[2020-04-28] MEDS ORDERED: Heparin Sod 1000 units/ml 10ml IV PRN (09:00)
--- NOTE | 2020-04-28 10:12 | Surgery Progress Note ---
Surgery Progress Note Subjective Additional Comments abd pain improved no n/v labs noted HD as per renal okay for diet as tolerated Objective Last 24 Hour Vital Signs Date Time Temp Pulse Resp B/P (MAP) Pulse Ox O2 Delivery O2 Flow Rate FiO2 04/28/20 08:00 97.9 85 18 159/102 (121) 98 04/28/20 06:10 153/82 04/28/20 04:00 83 04/28/20 04:00 98.1 85 19 142/79 (100) 95 04/28/20 00:00 86 04/28/20 00:00 98.7 85 17 136/81 (99) 99 04/27/20 22:20 147/91 04/27/20 21:28 87 143/86 04/27/20 21:27 87 143/86 04/27/20 21:00 Nasal Cannula 2.0 04/27/20 20:00 85 04/27/20 20:00 99.1 87 20 143/86 (105) 99 04/27/20 18:14 170/105 04/27/20 16:00 98.1 93 20 170/105 (126) 97 04/27/20 16:00 92 04/27/20 14:11 146/92 04/27/20 12:00 98.1 89 18 146/92 (110) 98 04/27/20 12:00 89 I&O Intake and Output 04/27/20 04/28/20 19:00 07:00 Intake Total 240 ml Balance 240 ml Intake Oral 240 ml Cardiovascular: RSR Respiratory: clear Abdomen: soft, non-tender, present bowel sounds Extremities: no edema, no tenderness, no cyanosis Laboratory Tests Test 04/28/20 02:06 04/28/20 06:20 POC Whole Blood Glucose 195 MG/DL (74-106) H White Blood Count 4.8 K/UL (4.8-10.8) Red Blood Count 3.04 M/UL (4.70-6.10) L Hemoglobin 9.8 G/DL (14.2-18.0) L Hematocrit 29.4 % (42.0-52.0) L Mean Corpuscular Volume 97 FL (80-99) Mean Corpuscular Hemoglobin 32.2 PG (27.0-31.0) H Mean Corpuscular Hemoglobin Concent 33.2 G/DL (32.0-36.0) Red Cell Distribution Width 13.0 % (11.6-14.8) Platelet Count 185 K/UL (150-450) Mean Platelet Volume 5.8 FL (6.5-10.1) L Neutrophils (%) (Auto) 63.4 % (45.0-75.0) Lymphocytes (%) (Auto) 20.5 % (20.0-45.0) Monocytes (%) (Auto) 8.3 % (1.0-10.0) Eosinophils (%) (Auto) 4.7 % (0.0-3.0) H Basophils (%) (Auto) 3.0 % (0.0-2.0) H Sodium Level 125 MMOL/L (136-145) L Potassium Level 5.2 MMOL/L (3.5-5.1) H Chloride Level 86 MMOL/L (98-107) L Carbon Dioxide Level 25 MMOL/L (21-32) Anion Gap 14 mmol/L (5-15) Blood Urea Nitrogen 35 mg/dL (7-18) H Creatinine 8.9 MG/DL (0.55-1.30) H Estimat Glomerular Filtration Rate 8.7 mL/min (>60) Glucose Level 392 MG/DL (74-106) H Calcium Level 8.7 MG/DL (8.5-10.1) Plan Problems: (1) Uncontrolled hypertension (2) Hyperglycemia (3) ESRD (end stage renal disease) (4) Abdominal pain Assessment & Plan: 29-year-old male with generalized nominal pain cramping. Afebrile, hemodynamic stable CT reviewed no acute findings Abdominal exam is fairly benign no tenderness no peritonitis small reducible umbilical hernia but does state uncomfortable on examination palpation Currently no nausea vomiting fever chills Labs noted Abdominal ultrasound ordered Okay for diet from surgical standpoint No acute surgical intervention at this time We will follow with recommendations and serial abdominal examinations Thank you for allowing me to participate in patient's care improving US noted ABDOMEN: Liver: Unremarkable. Gallbladder and bile ducts: Unremarkable. No calcified stones. No ductal dilation. Pancreas: Unremarkable. No ductal dilation. Spleen: Unremarkable. No splenomegaly. Adrenals: Unremarkable. No mass. Kidneys and ureters: Unremarkable. No obstructing stones. No hydronephrosis. Stomach and bowel: Small hiatal hernia. Unremarkable. No obstruction. No mucosal thickening. PELVIS: Appendix: The appendix is normal (111). Bladder: The urinary bladder wall appears thickened however this may be accentuated by the lack of distention. Reproductive: Unremarkable as visualized. ABDOMEN and PELVIS: Intraperitoneal space: No free intraperitoneal air. Mild volume ascites, decreased in volume compared to the prior study. Bones/joints: Osseous structures are unremarkable. Soft tissues: Anasarca is present, decreased compared to the prior study. Vasculature: Unremarkable. No abdominal aortic aneurysm. Lymph nodes: Prominent external iliac and inguinal lymph nodes are identified, likely reactive, stable. IMPRESSION: 1. No acute findings identified within the abdomen or pelvis to explain the patient's abdominal pain. No evidence of bowel obstruction. 2. Mild volume ascites. Small pericardial effusion, stable. (5) Hypertensive urgency (6) Type 1 diabetes (7) Noncompliance (8) Diabetic ketoacidosis (9) Pancytopenia (10) HIV (human immunodeficiency virus infection) (11) Liver hemangioma Kenney Friend Apr 28, 2020 10:12
[2020-04-28 11:41] VITALS: BP 152/95
--- NOTE | 2020-04-28 11:50 | Nephrology Progress Note ---
Assessment/Plan Problem List: (1) Abdominal pain (2) ESRD (end stage renal disease) (3) Hyperglycemia (4) Hypertensive urgency (5) HIV (human immunodeficiency virus infection) Plan HD 04/26 fluid removal,HD 04/28 titrate bp meds, insulin adjusted Subjective Constitutional: Reports: weakness HEENT: Reports: no symptoms Genitourinary: Reports: no symptoms Neurologic/Psychiatric: Reports: no symptoms Objective Objective Last 24 Hour Vital Signs Date Time Temp Pulse Resp B/P (MAP) Pulse Ox O2 Delivery O2 Flow Rate FiO2 04/28/20 11:41 97.7 97 20 152/95 (114) 97 04/28/20 09:00 Nasal Cannula 2.0 04/28/20 08:00 97.9 85 18 159/102 (121) 98 04/28/20 08:00 88 04/28/20 06:10 153/82 04/28/20 04:00 83 04/28/20 04:00 98.1 85 19 142/79 (100) 95 04/28/20 00:00 86 04/28/20 00:00 98.7 85 17 136/81 (99) 99 04/27/20 22:20 147/91 04/27/20 21:28 87 143/86 04/27/20 21:27 87 143/86 04/27/20 21:00 Nasal Cannula 2.0 04/27/20 20:00 85 04/27/20 20:00 99.1 87 20 143/86 (105) 99 04/27/20 18:14 170/105 04/27/20 16:00 98.1 93 20 170/105 (126) 97 04/27/20 16:00 92 04/27/20 14:11 146/92 04/27/20 12:00 98.1 89 18 146/92 (110) 98 04/27/20 12:00 89 Intake and Output 04/27/20 04/28/20 19:00 07:00 Intake Total 240 ml Balance 240 ml Intake Oral 240 ml Laboratory Tests 04/28/20 02:06: POC Whole Blood Glucose 195H 04/28/20 06:20: White Blood Count 4.8, Red Blood Count 3.04L, Hemoglobin 9.8L, Hematocrit 29.4L , Mean Corpuscular Volume 97, Mean Corpuscular Hemoglobin 32.2H, Mean Corpuscular Hemoglobin Concent 33.2, Red Cell Distribution Width 13.0, Platelet Count 185, Mean Platelet Volume 5.8L, Neutrophils (%) (Auto) 63.4, Lymphocytes ( %) (Auto) 20.5, Monocytes (%) (Auto) 8.3, Eosinophils (%) (Auto) 4.7H, Basophils (%) (Auto) 3.0H, Sodium Level 125L, Potassium Level 5.2H, Chloride Level 86L, Carbon Dioxide Level 25, Anion Gap 14, Blood Urea Nitrogen 35H, Creatinine 8.9H, Estimat Glomerular Filtration Rate 8.7, Glucose Level 392H, Calcium Level 8.7 04/28/20 11:32: POC Whole Blood Glucose 90 Height (Feet): 5 Height (Inches): 9.00 Weight (Pounds): 152 General Appearance: no apparent distress, alert EENT: normal ENT inspection Neck: normal alignment Cardiovascular: regular rhythm Respiratory/Chest: lungs clear Abdomen: non tender, soft Extremities: no edema 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
--- NOTE | 2020-04-28 13:52 | General Progress Note ---
Assessment/Plan Problem List: (1) Type 1 diabetes ICD Codes: E10.9 - Type 1 diabetes mellitus without complications SNOMED: 20723054 (2) Uncontrolled hypertension ICD Codes: I10 - Essential (primary) hypertension SNOMED: 47219100, 89400858 (3) Noncompliance ICD Codes: Z91.19 - Patient's noncompliance with other medical treatment and regimen SNOMED: 3096189 (4) Hyperglycemia ICD Codes: R73.9 - Hyperglycemia, unspecified SNOMED: 38085712 (5) ESRD (end stage renal disease) ICD Codes: N18.6 - End stage renal disease SNOMED: 16463519 (6) Abdominal pain ICD Codes: R10.9 - Unspecified abdominal pain SNOMED: 42880080 (7) Hypertensive urgency ICD Codes: I16.0 - Hypertensive urgency SNOMED: 922833537 Status: stable, progressing Assessment/Plan: Continue current treatment. MRA abd per GI Continue pain treatment. Serial abdominal exams Titrate antihypertensive regimen Increase Levemir Monitor blood sugars Hemodialysis per renal Subjective ROS Limited/Unobtainable: No Constitutional: Reports: malaise, weakness HEENT: Reports: no symptoms Cardiovascular: Reports: no symptoms Respiratory: Reports: no symptoms Gastrointestinal/Abdominal: Reports: abdominal pain Genitourinary: Reports: no symptoms Neurologic/Psychiatric: Reports: no symptoms Endocrine: Reports: no symptoms Hematologic/Lymphatic: Reports: no symptoms Allergies: Coded Allergies: ASPIRIN (Unverified Allergy, Unknown, 02/08/20) Subjective decreased abd pain. no nausea or vomiting. still getting iv pain meds. abd US negative. MRA pending. no fever or chills. no cough. no diarrhea. no melena or brbpr. Objective Last 24 Hour Vital Signs Date Time Temp Pulse Resp B/P (MAP) Pulse Ox O2 Delivery O2 Flow Rate FiO2 04/28/20 12:00 87 04/28/20 11:41 97.7 97 20 152/95 (114) 97 04/28/20 09:00 Nasal Cannula 2.0 04/28/20 08:00 97.9 85 18 159/102 (121) 98 04/28/20 08:00 88 04/28/20 06:10 153/82 04/28/20 04:00 83 04/28/20 04:00 98.1 85 19 142/79 (100) 95 04/28/20 00:00 86 04/28/20 00:00 98.7 85 17 136/81 (99) 99 04/27/20 22:20 147/91 04/27/20 21:28 87 143/86 04/27/20 21:27 87 143/86 04/27/20 21:00 Nasal Cannula 2.0 04/27/20 20:00 85 04/27/20 20:00 99.1 87 20 143/86 (105) 99 04/27/20 18:14 170/105 04/27/20 16:00 98.1 93 20 170/105 (126) 97 04/27/20 16:00 92 04/27/20 14:11 146/92 Intake and Output 04/27/20 04/28/20 19:00 07:00 Intake Total 240 ml Balance 240 ml Intake Oral 240 ml Laboratory Tests 04/28/20 02:06: POC Whole Blood Glucose 195H 04/28/20 06:20: White Blood Count 4.8, Red Blood Count 3.04L, Hemoglobin 9.8L, Hematocrit 29.4L , Mean Corpuscular Volume 97, Mean Corpuscular Hemoglobin 32.2H, Mean Corpuscular Hemoglobin Concent 33.2, Red Cell Distribution Width 13.0, Platelet Count 185, Mean Platelet Volume 5.8L, Neutrophils (%) (Auto) 63.4, Lymphocytes ( %) (Auto) 20.5, Monocytes (%) (Auto) 8.3, Eosinophils (%) (Auto) 4.7H, Basophils (%) (Auto) 3.0H, Sodium Level 125L, Potassium Level 5.2H, Chloride Level 86L, Carbon Dioxide Level 25, Anion Gap 14, Blood Urea Nitrogen 35H, Creatinine 8.9H, Estimat Glomerular Filtration Rate 8.7, Glucose Level 392H, Calcium Level 8.7 04/28/20 11:32: POC Whole Blood Glucose 90 04/28/20 12:50: POC Whole Blood Glucose 112H Height (Feet): 5 Height (Inches): 9.00 Weight (Pounds): 152 Objective General Appearance: WD/WN, alert, thin EENT: normal ENT inspection Neck: non-tender, normal alignment, supple Cardiovascular: normal peripheral pulses, normal rate Respiratory/Chest: chest wall non-tender, lungs clear, normal breath sounds, no respiratory distress, no accessory muscle use Abdomen: normal bowel sounds, soft, no organomegaly, no mass, tender Edema: no edema noted Arm (L), no edema noted Arm (R) 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
[2020-04-28 16:00] VITALS: BP 112/69
[2020-04-28 20:00] VITALS: BP 168/114
--- NOTE | 2020-04-28 23:18 | General Progress Note ---
Assessment/Plan Status: stable, progressing Assessment/Plan: Assessment - Two days of diffuse abd pain and vomiting - resolving - Unrevealing blood work and CT scan and abdominal ultrasound - ESRD / HD - Anemia - HTN - hyperglycemia Recommendations - follow exam closely - PPI - Check stool studies - advance to solids - dc planning per PMD Subjective Allergies: Coded Allergies: ASPIRIN (Unverified Allergy, Unknown, 02/08/20) Subjective Feels better less pain resting comfortably Objective Last 24 Hour Vital Signs Date Time Temp Pulse Resp B/P (MAP) Pulse Ox O2 Delivery O2 Flow Rate FiO2 04/28/20 21:18 92 151/92 04/28/20 21:15 92 151/92 04/28/20 21:14 151/92 04/28/20 16:00 84 04/28/20 16:00 97.7 84 18 112/69 (83) 99 04/28/20 14:00 110/58 04/28/20 12:00 87 04/28/20 11:41 97.7 97 20 152/95 (114) 97 04/28/20 09:00 Nasal Cannula 2.0 04/28/20 08:00 97.9 85 18 159/102 (121) 98 04/28/20 08:00 88 04/28/20 06:10 153/82 04/28/20 04:00 83 04/28/20 04:00 98.1 85 19 142/79 (100) 95 04/28/20 00:00 86 04/28/20 00:00 98.7 85 17 136/81 (99) 99 Intake and Output 04/27/20 04/28/20 19:00 07:00 Intake Total 240 ml Balance 240 ml Intake Oral 240 ml Laboratory Tests 04/28/20 02:06: POC Whole Blood Glucose 195H 04/28/20 06:20: White Blood Count 4.8, Red Blood Count 3.04L, Hemoglobin 9.8L, Hematocrit 29.4L , Mean Corpuscular Volume 97, Mean Corpuscular Hemoglobin 32.2H, Mean Corpuscular Hemoglobin Concent 33.2, Red Cell Distribution Width 13.0, Platelet Count 185, Mean Platelet Volume 5.8L, Neutrophils (%) (Auto) 63.4, Lymphocytes ( %) (Auto) 20.5, Monocytes (%) (Auto) 8.3, Eosinophils (%) (Auto) 4.7H, Basophils (%) (Auto) 3.0H, Sodium Level 125L, Potassium Level 5.2H, Chloride Level 86L, Carbon Dioxide Level 25, Anion Gap 14, Blood Urea Nitrogen 35H, Creatinine 8.9H, Estimat Glomerular Filtration Rate 8.7, Glucose Level 392H, Calcium Level 8.7 04/28/20 11:32: POC Whole Blood Glucose 90 04/28/20 12:50: POC Whole Blood Glucose 112H Height (Feet): 5 Height (Inches): 9.00 Weight (Pounds): 152 Objective WDWN NCAT supple CTA RRR abd soft ND, improved TTP compared to yesterday no edema Alexander Curry MD Apr 28, 2020 23:18
[2020-04-29] VITALS: BP 153/97
[2020-04-29] MEDS: HydrALAZINE 50mg tab ORAL SCH ×3 (00:10→14:00)
[2020-04-29] MEDS: DiphenhydrAMINE 50mg/ml Inj IVP PRN ×4 (00:10→14:45)
[2020-04-29] MEDS: HYDROmorphone 1mg/ml Carpuject IVP PRN ×5 (00:11→17:00)
--- NOTE | 2020-04-29 01:45 | Cardiology Progress Note ---
Subjective DATE OF SERVICE: Apr 28, 2020 No SOB. No N/V. Abdominal pain is decreasing; work up negative to date. BP more stable No c/o CP Glucose elevated Lipase normal B12/folate/TSH normal Objective Last 24 Hour Vital Signs Date Time Temp Pulse Resp B/P (MAP) Pulse Ox O2 Delivery O2 Flow Rate FiO2 04/29/20 00:10 153/97 04/29/20 00:00 83 04/29/20 00:00 97.7 83 19 153/97 (115) 100 04/28/20 21:18 92 151/92 04/28/20 21:15 92 151/92 04/28/20 21:14 151/92 04/28/20 20:00 97.5 92 19 168/114 (132) 100 04/28/20 20:00 88 04/28/20 16:00 84 04/28/20 16:00 97.7 84 18 112/69 (83) 99 04/28/20 14:00 110/58 04/28/20 12:00 87 04/28/20 11:41 97.7 97 20 152/95 (114) 97 04/28/20 09:00 Nasal Cannula 2.0 04/28/20 08:00 97.9 85 18 159/102 (121) 98 04/28/20 08:00 88 04/28/20 06:10 153/82 04/28/20 04:00 83 04/28/20 04:00 98.1 85 19 142/79 (100) 95 ROS: unchanged from my eval of 04/24/20 HEENT: normal ENT inspection RHYTHM: ST LUNGS: lungs clear bilaterally CARDIAC: regular rhythm, normal S1 and S2, rapid rate, tachycardia ABDOMEN: normal bowel sounds, non tender, soft, no organomegaly EXTREMITIES: non-tender, no calf tenderness, no swelling, No edema - Palpable bruit over dialysis access site Laboratory Tests Test 04/28/20 02:06 04/28/20 06:20 04/28/20 11:32 04/28/20 12:50 POC Whole Blood Glucose 195 MG/DL (74-106) H 90 MG/DL (74-106) 112 MG/DL (74-106) H White Blood Count 4.8 K/UL (4.8-10.8) Red Blood Count 3.04 M/UL (4.70-6.10) L Hemoglobin 9.8 G/DL (14.2-18.0) L Hematocrit 29.4 % (42.0-52.0) L Mean Corpuscular Volume 97 FL (80-99) Mean Corpuscular Hemoglobin 32.2 PG (27.0-31.0) H Mean Corpuscular Hemoglobin Concent 33.2 G/DL (32.0-36.0) Red Cell Distribution Width 13.0 % (11.6-14.8) Platelet Count 185 K/UL (150-450) Mean Platelet Volume 5.8 FL (6.5-10.1) L Neutrophils (%) (Auto) 63.4 % (45.0-75.0) Lymphocytes (%) (Auto) 20.5 % (20.0-45.0) Monocytes (%) (Auto) 8.3 % (1.0-10.0) Eosinophils (%) (Auto) 4.7 % (0.0-3.0) H Basophils (%) (Auto) 3.0 % (0.0-2.0) H Sodium Level 125 MMOL/L (136-145) L Potassium Level 5.2 MMOL/L (3.5-5.1) H Chloride Level 86 MMOL/L (98-107) L Carbon Dioxide Level 25 MMOL/L (21-32) Anion Gap 14 mmol/L (5-15) Blood Urea Nitrogen 35 mg/dL (7-18) H Creatinine 8.9 MG/DL (0.55-1.30) H Estimat Glomerular Filtration Rate 8.7 mL/min (>60) Glucose Level 392 MG/DL (74-106) H Calcium Level 8.7 MG/DL (8.5-10.1) Assessment/Plan Assessment/Plan Hypertensive urgency resolved, but still with suboptimal BP range. Abdominal Pain resolving ESRD Acute and chronic diastolic CHF Anemia of CKD with macrocytosis Acute myocardial ischemia resolving IRDM with hyperglycemia Sinus tachycardia resolving Severe pulmonary hypertension AntiHTN meds adjusted HD with UF PPI rx Insulin dose adjusted GI follow up if abdominal pain worsens - for mesenteric angio Shamir Dunlap MD Apr 29, 2020 01:45
[2020-04-29 04:00] VITALS: BP 161/90
[2020-04-29] MEDS: Levemir Flexpen SUBQ SCH ×2 (06:23→11:53)
[2020-04-29] MEDS: NovoLOG Insulin Flexpen SUBQ SCH ×3 (06:24→16:30)
[2020-04-29 08:00] VITALS: BP 183/108
[2020-04-29] MEDS: Metoprolol Tartrate 50mg tab ORAL SCH (08:23)
[2020-04-29] MEDS: Pantoprazole Inj IVP SCH (08:23)
[2020-04-29 08:41] LABS: ALBUMIN 3.8 G/DL (3.4-5.0); ALBUMIN/GLOBULIN RATIO 0.9 (1.0-2.7); BILIRUBIN,TOTAL 0.4 MG/DL (0.2-1.0); CALCIUM 7.4 MG/DL (8.5-10.1); CREATININE 8.7 MG/DL (0.55-1.30); POTASSIUM 5.3 MMOL/L (3.5-5.1)
[2020-04-29 09:07] LABS: BASOPHILS % (AUTO) 0.7 % (0.0-2.0); EOSINOPHILS % (AUTO) 3.5 % (0.0-3.0); HEMATOCRIT 29.7 % (42.0-52.0); HEMOGLOBIN 9.5 G/DL (14.2-18.0); LYMPHOCYTES % (AUTO) 8.9 % (20.0-45.0); MEAN CORPUSCULAR VOLUME 100 FL (80-99); MONOCYTES % (AUTO) 5.7 % (1.0-10.0); NEUTROPHILS % (AUTO) 81.1 % (45.0-75.0); PLATELET COUNT 146 K/UL (150-450); RED BLOOD COUNT 2.97 M/UL (4.70-6.10); RED CELL DISTRIBUTION WIDTH 13.2 % (11.6-14.8); WHITE BLOOD COUNT 6.6 K/UL (4.8-10.8)
--- NOTE | 2020-04-29 10:39 | Cardiology Report ---
APPROVED REPORT EKG Measurement Heart [id number] <Conclusion> Sinus tachycardia Otherwise normal ECG
[2020-04-29] MEDS ORDERED: METOPROLOL TART50 M1 ORAL (11:31)
[2020-04-29] MEDS ORDERED: NIFEDIPINE ER60 M2 ORAL (11:34)
[2020-04-29] MEDS ORDERED: HYDRALAZINE HC100 MG ORAL (11:35)
[2020-04-29] MEDS ORDERED: PROTONIX40 MG ORAL (11:36)
[2020-04-29] MEDS ORDERED: NORCO 10-325 T1 EACH ORAL (11:37)
[2020-04-29 12:00] VITALS: BP 132/77
--- NOTE | 2020-04-29 13:28 | Nephrology Progress Note ---
Assessment/Plan Problem List: (1) Abdominal pain (2) ESRD (end stage renal disease) (3) Hyperglycemia (4) Hypertensive urgency (5) HIV (human immunodeficiency virus infection) Plan HD 04/26 fluid removal,HD 04/28 changed to 04/29 as low bp, titrate bp meds, insulin adjusted Subjective Constitutional: Reports: weakness HEENT: Reports: no symptoms Genitourinary: Reports: no symptoms Neurologic/Psychiatric: Reports: no symptoms Objective Objective Last 24 Hour Vital Signs Date Time Temp Pulse Resp B/P (MAP) Pulse Ox O2 Delivery O2 Flow Rate FiO2 04/29/20 12:00 97.7 81 22 132/77 (95) 100 04/29/20 09:00 Nasal Cannula 4.0 04/29/20 08:24 183/108 04/29/20 08:24 87 183/108 04/29/20 08:23 87 183/108 04/29/20 08:00 96.6 87 22 183/108 (133) 100 04/29/20 08:00 91 04/29/20 05:59 161/90 04/29/20 04:00 80 04/29/20 04:00 97.9 87 21 161/90 (113) 100 04/29/20 00:10 153/97 04/29/20 00:00 83 04/29/20 00:00 97.7 83 19 153/97 (115) 100 04/28/20 21:18 92 151/92 04/28/20 21:15 92 151/92 04/28/20 21:14 151/92 04/28/20 21:00 Nasal Cannula 4.0 04/28/20 20:00 97.5 92 19 168/114 (132) 100 04/28/20 20:00 88 04/28/20 16:00 84 04/28/20 16:00 97.7 84 18 112/69 (83) 99 04/28/20 14:00 110/58 Intake and Output 04/28/20 04/29/20 19:00 07:00 Intake Total 360 ml Output Total 0 ml Balance 360 ml Intake Oral 360 ml Output Hemodialysis UF 0 ml Laboratory Tests 04/28/20 16:24: POC Whole Blood Glucose 213H 04/28/20 20:29: POC Whole Blood Glucose 208H 04/29/20 06:21: POC Whole Blood Glucose [Pending] 04/29/20 06:40: White Blood Count 6.6, Red Blood Count 2.97L, Hemoglobin 9.5L, Hematocrit 29.7L , Mean Corpuscular Volume 100H, Mean Corpuscular Hemoglobin 32.1H, Mean Corpuscular Hemoglobin Concent 32.2, Red Cell Distribution Width 13.2, Platelet Count 146L, Mean Platelet Volume 6.1L, Neutrophils (%) (Auto) 81.1H, Lymphocytes (%) (Auto) 8.9L, Monocytes (%) (Auto) 5.7, Eosinophils (%) (Auto) 3.5H, Basophils (%) (Auto) 0.7, Sodium Level 127L, Potassium Level 5.3H, Chloride Level 89L, Carbon Dioxide Level 26, Anion Gap 12, Blood Urea Nitrogen 37H, Creatinine 8.7H, Estimat Glomerular Filtration Rate 9.0, Glucose Level 444H , Calcium Level 7.4L, Total Bilirubin 0.4, Aspartate Amino Transf (AST/SGOT) 29 , Alanine Aminotransferase (ALT/SGPT) 37, Alkaline Phosphatase 159H, Total Protein 7.8, Albumin 3.8, Globulin 4.0, Albumin/Globulin Ratio 0.9L 04/29/20 11:50: POC Whole Blood Glucose 119H Height (Feet): 5 Height (Inches): 9.00 Weight (Pounds): 152 General Appearance: no apparent distress, alert EENT: normal ENT inspection Neck: supple Cardiovascular: normal rate Respiratory/Chest: lungs clear Abdomen: non tender, soft Neurologic: cloud subject matter expert II-XII grossly normal Benito Maguire MD Apr 29, 2020 13:28
--- NOTE | 2020-04-29 14:24 | Surgery Progress Note ---
Surgery Progress Note Subjective Symptoms: improved, tolerating diet, passing flatus Objective Last 24 Hour Vital Signs Date Time Temp Pulse Resp B/P (MAP) Pulse Ox O2 Delivery O2 Flow Rate FiO2 04/29/20 12:00 79 04/29/20 12:00 97.7 81 22 132/77 (95) 100 04/29/20 09:00 Nasal Cannula 4.0 04/29/20 08:24 183/108 04/29/20 08:24 87 183/108 04/29/20 08:23 87 183/108 04/29/20 08:00 96.6 87 22 183/108 (133) 100 04/29/20 08:00 91 04/29/20 05:59 161/90 04/29/20 04:00 80 04/29/20 04:00 97.9 87 21 161/90 (113) 100 04/29/20 00:10 153/97 04/29/20 00:00 83 04/29/20 00:00 97.7 83 19 153/97 (115) 100 04/28/20 21:18 92 151/92 04/28/20 21:15 92 151/92 04/28/20 21:14 151/92 04/28/20 21:00 Nasal Cannula 4.0 04/28/20 20:00 97.5 92 19 168/114 (132) 100 04/28/20 20:00 88 04/28/20 16:00 84 04/28/20 16:00 97.7 84 18 112/69 (83) 99 I&O Intake and Output 04/28/20 04/29/20 19:00 07:00 Intake Total 360 ml Output Total 0 ml Balance 360 ml Intake Oral 360 ml Output Hemodialysis UF 0 ml Cardiovascular: RSR Respiratory: clear Abdomen: soft, non-tender, present bowel sounds, non-distended Extremities: no tenderness, no cyanosis Laboratory Tests Test 04/28/20 16:24 04/28/20 20:29 04/29/20 06:21 04/29/20 06:40 POC Whole Blood Glucose 213 MG/DL (74-106) H 208 MG/DL (74-106) H Pending White Blood Count 6.6 K/UL (4.8-10.8) Red Blood Count 2.97 M/UL (4.70-6.10) L Hemoglobin 9.5 G/DL (14.2-18.0) L Hematocrit 29.7 % (42.0-52.0) L Mean Corpuscular Volume 100 FL (80-99) H Mean Corpuscular Hemoglobin 32.1 PG (27.0-31.0) H Mean Corpuscular Hemoglobin Concent 32.2 G/DL (32.0-36.0) Red Cell Distribution Width 13.2 % (11.6-14.8) Platelet Count 146 K/UL (150-450) L Mean Platelet Volume 6.1 FL (6.5-10.1) L Neutrophils (%) (Auto) 81.1 % (45.0-75.0) H Lymphocytes (%) (Auto) 8.9 % (20.0-45.0) L Monocytes (%) (Auto) 5.7 % (1.0-10.0) Eosinophils (%) (Auto) 3.5 % (0.0-3.0) H Basophils (%) (Auto) 0.7 % (0.0-2.0) Sodium Level 127 MMOL/L (136-145) L Potassium Level 5.3 MMOL/L (3.5-5.1) H Chloride Level 89 MMOL/L (98-107) L Carbon Dioxide Level 26 MMOL/L (21-32) Anion Gap 12 mmol/L (5-15) Blood Urea Nitrogen 37 mg/dL (7-18) H Creatinine 8.7 MG/DL (0.55-1.30) H Estimat Glomerular Filtration Rate 9.0 mL/min (>60) Glucose Level 444 MG/DL (74-106) H Calcium Level 7.4 MG/DL (8.5-10.1) L Total Bilirubin 0.4 MG/DL (0.2-1.0) Aspartate Amino Transf (AST/SGOT) 29 U/L (15-37) Alanine Aminotransferase (ALT/SGPT) 37 U/L (12-78) Alkaline Phosphatase 159 U/L (46-116) H Total Protein 7.8 G/DL (6.4-8.2) Albumin 3.8 G/DL (3.4-5.0) Globulin 4.0 g/dL Albumin/Globulin Ratio 0.9 (1.0-2.7) L Test 04/29/20 11:50 POC Whole Blood Glucose 119 MG/DL (74-106) H Plan Problems: (1) Uncontrolled hypertension (2) Hyperglycemia (3) ESRD (end stage renal disease) (4) Abdominal pain Assessment & Plan: 29-year-old male with generalized nominal pain cramping. Afebrile, hemodynamic stable CT reviewed no acute findings Abdominal exam is fairly benign no tenderness no peritonitis small reducible umbilical hernia but does state uncomfortable on examination palpation Currently no nausea vomiting fever chills Labs noted Abdominal ultrasound ordered Okay for diet from surgical standpoint No acute surgical intervention at this time We will follow with recommendations and serial abdominal examinations Thank you for allowing me to participate in patient's care improving US noted ABDOMEN: Liver: Unremarkable. Gallbladder and bile ducts: Unremarkable. No calcified stones. No ductal dilation. Pancreas: Unremarkable. No ductal dilation. Spleen: Unremarkable. No splenomegaly. Adrenals: Unremarkable. No mass. Kidneys and ureters: Unremarkable. No obstructing stones. No hydronephrosis. Stomach and bowel: Small hiatal hernia. Unremarkable. No obstruction. No mucosal thickening. PELVIS: Appendix: The appendix is normal (111). Bladder: The urinary bladder wall appears thickened however this may be accentuated by the lack of distention. Reproductive: Unremarkable as visualized. ABDOMEN and PELVIS: Intraperitoneal space: No free intraperitoneal air. Mild volume ascites, decreased in volume compared to the prior study. Bones/joints: Osseous structures are unremarkable. Soft tissues: Anasarca is present, decreased compared to the prior study. Vasculature: Unremarkable. No abdominal aortic aneurysm. Lymph nodes: Prominent external iliac and inguinal lymph nodes are identified, likely reactive, stable. IMPRESSION: 1. No acute findings identified within the abdomen or pelvis to explain the patient's abdominal pain. No evidence of bowel obstruction. 2. Mild volume ascites. Small pericardial effusion, stable. (5) Hypertensive urgency (6) Type 1 diabetes (7) Noncompliance (8) Diabetic ketoacidosis (9) Pancytopenia (10) HIV (human immunodeficiency virus infection) (11) Liver hemangioma Kenney Friend Apr 29, 2020 14:24
[2020-04-29 16:00] VITALS: BP 128/74
--- NOTE | 2020-04-29 18:14 | Discharge Summary ---
DATE OF ADMISSION: 04/24/2020 DATE OF DISCHARGE: 04/29/2020 ADMISSION DIAGNOSES: 1. Abdominal pain. 2. End-stage renal disease. 3. Congestive heart failure. 4. Hypertension. 5. Hypertensive emergency. 6. Diabetes. DISCHARGE DIAGNOSES: 1. Hypoglycemia. 2. Diabetes. 3. Hypertension. 4. Sleep apnea. 5. Pelvic mass. HOSPITAL COURSE: The patient was admitted with complaints of abdominal pain, shortness of breath, and uncontrolled hypertension. He was admitted to a monitored bed. He required multiple adjustments in his antihypertensive regimen. He was also noncompliant at times with pills. He had gradual improvement in his blood pressure. He had severe abdominal pain requiring intravenous pain medications. His GI workup was unremarkable. His abdominal pain improved spontaneously without any change in treatment except for antacids and pain medications. On discharge, he was stable. DISCHARGE SUMMARY: He will be discharged home. He will follow up in one to two weeks in the office. DISCHARGE MEDICATIONS: Please see discharge medication list for discharge medications. DIET: Diabetic renal cardiac diet. ACTIVITY: Ad-chris. Ben Ibarra M.D. DR: ELISABETH JOB#: [id number] CC:
--- NOTE | 2020-04-29 21:39 | Cardiology Progress Note ---
Subjective DATE OF SERVICE: Apr 29, 2020 No SOB. No N/V. No c/o abdominal pain. BP more stable No c/o CP Completed HD/UF today Glucose elevated Lipase normal B12/folate/TSH normal Objective Last 24 Hour Vital Signs Date Time Temp Pulse Resp B/P (MAP) Pulse Ox O2 Delivery O2 Flow Rate FiO2 04/29/20 16:00 84 04/29/20 16:00 97.0 81 20 128/74 (92) 100 04/29/20 12:00 79 04/29/20 12:00 97.7 81 22 132/77 (95) 100 04/29/20 09:00 Nasal Cannula 4.0 04/29/20 08:24 183/108 04/29/20 08:24 87 183/108 04/29/20 08:23 87 183/108 04/29/20 08:00 96.6 87 22 183/108 (133) 100 04/29/20 08:00 91 04/29/20 05:59 161/90 04/29/20 04:00 80 04/29/20 04:00 97.9 87 21 161/90 (113) 100 04/29/20 00:10 153/97 04/29/20 00:00 83 04/29/20 00:00 97.7 83 19 153/97 (115) 100 ROS: unchanged from my eval of 04/24/20 HEENT: normal ENT inspection RHYTHM: ST LUNGS: lungs clear bilaterally CARDIAC: regular rhythm, normal S1 and S2, rapid rate, tachycardia ABDOMEN: normal bowel sounds, non tender, soft, no organomegaly EXTREMITIES: non-tender, no calf tenderness, no swelling, No edema - Palpable bruit over dialysis access site Laboratory Tests Test 04/29/20 06:21 04/29/20 06:40 04/29/20 11:50 04/29/20 17:31 POC Whole Blood Glucose Pending 119 MG/DL (74-106) H 113 MG/DL (74-106) H White Blood Count 6.6 K/UL (4.8-10.8) Red Blood Count 2.97 M/UL (4.70-6.10) L Hemoglobin 9.5 G/DL (14.2-18.0) L Hematocrit 29.7 % (42.0-52.0) L Mean Corpuscular Volume 100 FL (80-99) H Mean Corpuscular Hemoglobin 32.1 PG (27.0-31.0) H Mean Corpuscular Hemoglobin Concent 32.2 G/DL (32.0-36.0) Red Cell Distribution Width 13.2 % (11.6-14.8) Platelet Count 146 K/UL (150-450) L Mean Platelet Volume 6.1 FL (6.5-10.1) L Neutrophils (%) (Auto) 81.1 % (45.0-75.0) H Lymphocytes (%) (Auto) 8.9 % (20.0-45.0) L Monocytes (%) (Auto) 5.7 % (1.0-10.0) Eosinophils (%) (Auto) 3.5 % (0.0-3.0) H Basophils (%) (Auto) 0.7 % (0.0-2.0) Sodium Level 127 MMOL/L (136-145) L Potassium Level 5.3 MMOL/L (3.5-5.1) H Chloride Level 89 MMOL/L (98-107) L Carbon Dioxide Level 26 MMOL/L (21-32) Anion Gap 12 mmol/L (5-15) Blood Urea Nitrogen 37 mg/dL (7-18) H Creatinine 8.7 MG/DL (0.55-1.30) H Estimat Glomerular Filtration Rate 9.0 mL/min (>60) Glucose Level 444 MG/DL (74-106) H Calcium Level 7.4 MG/DL (8.5-10.1) L Total Bilirubin 0.4 MG/DL (0.2-1.0) Aspartate Amino Transf (AST/SGOT) 29 U/L (15-37) Alanine Aminotransferase (ALT/SGPT) 37 U/L (12-78) Alkaline Phosphatase 159 U/L (46-116) H Total Protein 7.8 G/DL (6.4-8.2) Albumin 3.8 G/DL (3.4-5.0) Globulin 4.0 g/dL Albumin/Globulin Ratio 0.9 (1.0-2.7) L Assessment/Plan Assessment/Plan Hypertensive urgency resolved; BP range stabilized. Abdominal Pain resolving ESRD Acute and chronic diastolic CHF Anemia of CKD with macrocytosis Acute myocardial ischemia resolving IRDM with hyperglycemia Sinus tachycardia resolving Severe pulmonary hypertension AntiHTN meds adjusted - to continue post dischg HD with UF 3x/wk PPI rx Insulin dose titration as outpatient Shamir Dunlap MD Apr 29, 2020 21:39
--- NOTE | 2020-04-29 21:50 | General Progress Note ---
Assessment/Plan Status: stable, progressing Assessment/Plan: Assessment - Two days of diffuse abd pain and vomiting - resolving - Unrevealing blood work and CT scan and abdominal ultrasound - ESRD / HD - Anemia - HTN - hyperglycemia Recommendations - follow exam closely - PPI - Check stool studies - advance to solids - dc planning per PMD Subjective Allergies: Coded Allergies: ASPIRIN (Unverified Allergy, Unknown, 02/08/20) Subjective Feels well less pain resting comfortably Objective Last 24 Hour Vital Signs Date Time Temp Pulse Resp B/P (MAP) Pulse Ox O2 Delivery O2 Flow Rate FiO2 04/29/20 16:00 84 04/29/20 16:00 97.0 81 20 128/74 (92) 100 04/29/20 12:00 79 04/29/20 12:00 97.7 81 22 132/77 (95) 100 04/29/20 09:00 Nasal Cannula 4.0 04/29/20 08:24 183/108 04/29/20 08:24 87 183/108 04/29/20 08:23 87 183/108 04/29/20 08:00 96.6 87 22 183/108 (133) 100 04/29/20 08:00 91 04/29/20 05:59 161/90 04/29/20 04:00 80 04/29/20 04:00 97.9 87 21 161/90 (113) 100 04/29/20 00:10 153/97 04/29/20 00:00 83 04/29/20 00:00 97.7 83 19 153/97 (115) 100 Intake and Output 04/28/20 04/29/20 19:00 07:00 Intake Total 360 ml Output Total 0 ml Balance 360 ml Intake Oral 360 ml Output Hemodialysis UF 0 ml Laboratory Tests 04/29/20 06:21: POC Whole Blood Glucose [Pending] 04/29/20 06:40: White Blood Count 6.6, Red Blood Count 2.97L, Hemoglobin 9.5L, Hematocrit 29.7L , Mean Corpuscular Volume 100H, Mean Corpuscular Hemoglobin 32.1H, Mean Corpuscular Hemoglobin Concent 32.2, Red Cell Distribution Width 13.2, Platelet Count 146L, Mean Platelet Volume 6.1L, Neutrophils (%) (Auto) 81.1H, Lymphocytes (%) (Auto) 8.9L, Monocytes (%) (Auto) 5.7, Eosinophils (%) (Auto) 3.5H, Basophils (%) (Auto) 0.7, Sodium Level 127L, Potassium Level 5.3H, Chloride Level 89L, Carbon Dioxide Level 26, Anion Gap 12, Blood Urea Nitrogen 37H, Creatinine 8.7H, Estimat Glomerular Filtration Rate 9.0, Glucose Level 444H , Calcium Level 7.4L, Total Bilirubin 0.4, Aspartate Amino Transf (AST/SGOT) 29 , Alanine Aminotransferase (ALT/SGPT) 37, Alkaline Phosphatase 159H, Total Protein 7.8, Albumin 3.8, Globulin 4.0, Albumin/Globulin Ratio 0.9L 04/29/20 11:50: POC Whole Blood Glucose 119H 04/29/20 17:31: POC Whole Blood Glucose 113H Height (Feet): 5 Height (Inches): 9.00 Weight (Pounds): 152 Objective WDWN NCAT supple CTA RRR abd soft ND, improved TTP compared to yesterday no edema Alexander Curry MD Apr 29, 2020 21:50
--- NOTE | 2020-05-02 13:24 | Cardiology Report ---
APPROVED REPORT EXAM: Two-dimensional and M-mode echocardiogram with Doppler and color Doppler. INDICATION Arrhythmia M-Mode DIMENSIONS IVSd1.6 (0.7-1.1cm)Left Atrium (MM)3.8 (1.6-4.0cm) LVDd4.8 (3.5-5.6cm)Aortic Root3.5 (2.0-3.7cm) PWd2.0 (0.7-1.1cm)Aortic Cusp Exc.2.3 (1.5-2.0cm) IVSs1.9 cm LVDs3.7 (2.5-4.0cm) PWs2.3 cm <Conclusion> Normal left ventricular chamber size, systolic function and wall motion . Left ventricular ejection fraction estimated to be 60-65 %. Mild left ventricular hypertrophy by 2-D. No evidence of pericardial fat or effusion. Mild left atrial enlargement. Right ventricular size at upper limits of normal. Right atrial chamber size is within normal limits. Calcification of aortic valve with adequate cusp excursion. Thickened mitral valve leaflets with normal excursion. Mitral annulus and aortic root calcification. Pulmonic valve not well visualized. Normal tricuspid valve structure. IVC at normal size with physiologic collapse. A color flow and spectral Doppler study was performed and revealed: No aortic regurgitation. Trace mitral regurgitation. Mitral inflow indicates normal left ventricular diastolic function. Moderate to severe tricuspid regurgitation. Tricuspid systolic velocities suggests peak right ventricular systolic pressure of 48 mmHg,consistent with moderate pulmonary hypertension. Pulmonic regurgitation present.
== END 2020-04-29 19:17 | disposition home or self-care (01) | DRG 291 ==
LOC: EDBD 17:41 → EMR 17:55 → 2E 18:24 → EDBEDREQ 20:33 → SDSOVERFLO 20:51 → 2E 22:50
PROC: 5A1D70Z Performance of Urinary Filtration, Intermittent, Less than 6 Hours Per Day (ICD-10-PCS; principal; 2020-04-25)
DX: I13.2 Hypertensive heart and chronic kidney disease with heart failure and with stage 5 chronic kidney disease, or end stage renal disease (principal); N18.6 End stage renal disease; I50.33 Acute on chronic diastolic (congestive) heart failure; I16.0 Hypertensive urgency; E10.65 Type 1 diabetes mellitus with hyperglycemia; Z79.82 Long term (current) use of aspirin; N18.9 Chronic kidney disease, unspecified; D63.1 Anemia in chronic kidney disease; I51.3 Intracardiac thrombosis, not elsewhere classified; Z91.19 Patient's noncompliance with other medical treatment and regimen; E10.40 Type 1 diabetes mellitus with diabetic neuropathy, unspecified; G47.30 Sleep apnea, unspecified; R19.00 Intra-abdominal and pelvic swelling, mass and lump, unspecified site
CPT/HCPCS: 36415; 71045; 74018; 74176; 76700; 80048; 80053; 80307; 81003; 82009; 82150; 82607; 82746; 82962; 83036; 83540; 83550; 83605; 83690; 83735; 83880; 84443; 84484; 85025; 85610; 85651; 85730; 86140; 86803; 87081; 87086; 87340; 93005; 93306; 93970; 96361; 96374; 96375; 96376; 99291; G0480; J1815; J2405; J7030; S5561

== ENCOUNTER 2020-05-26 10:06 | Inpatient (IN) | payer MEDICARE, OTHER ==
[~2020-05-26] VITALS: Ht 170.2 cm; Wt 59.6 kg
[2020-05-26] VITALS (7 sets, daily range): BP systolic 174–239; BP diastolic 94–142
[~2020-05-26 10:06] MED LIST changes: +CATAPRES-TTS 21 EACH TDERMAL; +HYDRALAZINE HC100 MG ORAL; +LOSARTAN POTASS50 MG ORAL; +METOPROLOL TART50 M1 ORAL; +METOPROLOL TART50 MG ORAL; +NIFEDIPINE ER60 M2 ORAL; +NIFEDIPINE ER90 M2 ORAL; +NORCO 10-325 T1 EACH ORAL; +NORMODYNE200 MG ORAL; +NOVOLOG100 UNIT/5 SUBQ; +OMEPRAZOLE20 M2 ORAL; +PANTOPRAZOLE SO40 MG ORAL; +PROCARDIA XL30 MG ORAL; +PROTONIX40 MG ORAL; +REGLAN5 MG ORAL; +TIVICAY50 MG ORAL; +TRAZODONE HCL50 MG ORAL; +TUMS200 M1 PO; +ZOFRAN 4 MG4 MG/2 ML IVP
--- NOTE | 2020-05-26 10:09 | NUR ---
ED Nurse Note: Pt BIBRubén RA29 from home c/o high blood sugar. Pt also c/o abdominal pain x1 day. Per EMS, accucheck reads "High". Pt has [facility] dialysis access. Dialysis days T Th Sat, was not able to get his dialysis today. BP at triage was 239/142. Pt AAOX4, verbally responsive. No SOB, on room air. Pt placed on secured entrance monitor. ERMD at bedside.
--- NOTE | 2020-05-26 10:10 | NUR ---
Note undone in EDM - 05/26/20 at 1318 by ANISHA ED Nurse Note: Pt NADEGE RA29 from home c/o high blood sugar. Pt also c/o abdominal pain x1 day. Per EMS, accucheck reads "High". Pt hx of ETOH. Pt has [facility] dialysis access. Dialysis days T Th Sat, was not able to get his dialysis today. BP at triage was 239/142. Pt AAOX4, verbally responsive. No SOB, on room air. Pt placed on quality assurance monitor final. ERMD at bedside.
[2020-05-26] MEDS ORDERED: Pantoprazole Inj IVP ONE (10:30)
[2020-05-26] MEDS ORDERED: Morphine Sulfate 2mg/ml Inj(IV/IM USE ONLY) IVP ONE (10:30)
[2020-05-26] MEDS ORDERED: DiphenhydrAMINE 50mg/ml Inj IVP ONE ×2 (10:30→13:30)
[2020-05-26] MEDS ORDERED: cefTRIAXone 1 GM in NS 55 ML IVPB ONE (10:30)
--- NOTE | 2020-05-26 10:33 | Emergency Room Report ---
History of Present Illness General Chief Complaint: Abdominal Pain Source: Patient Present Illness HPI 29-year-old -[place] male with past medical history of ESRD (TTHSat, last HD ), severe gastritis, diabetic gastroparesis, hypertension, diabetes, noncompliance presents by ambulance with chief complaint of abdominal pain, nausea, vomiting. States he has had blood-streaked emesis times several episodes. He has dialysis scheduled at 11 AM, however was unable to make it secondary to the symptoms. Abdominal pain is in the epigastrium, nonradiating. Started yesterday unprovoked. Denies history of EGD or colonoscopy. Denies melena, hematochezia, back pain, flank pain, CP cough or sob. Patient still makes a little urine. He has been on dialysis for the last 2 years The patient's symptoms were gradual onset, severity was moderate, duration since 1 day. Quality: Nauseated Past medical history: Diabetes, hypertension, ESRD Past surgical history: Right upper extremity AV fistula Smoking: Denies Alcohol use: Denies Drug use: Denies Review of systems: CONST: No fevers or chills, No night sweats PULMONARY: No productive cough, No shortness of breath CARDIAC: No chest pain, No palpitations GI: ++ vomiting, No diarrhea , No melena_or_BRBPR : No dysuria, No hematuria, No discharge NEURO: No new_focal_weakness_or_numbness, No confusion, No vision changes 14 point Review of Systems is otherwise negative except per HPI Physical Exam: GENERAL: Awake_alert_ nontoxic, no acute distress Spo2 100% on RA -normal; retching in bed. Bilious emesis. EYES: Extraocular muscles are intact. Conjunctivae clear. Lids without swelling ENT: External nose and ear normal_in_appearance. Oropharynx clear. Head_atraumatic, Moist_oral_mucosa NECK: No JVD. No meningismus. No thyromegaly. Supple. Trachea midline RESP: Normal respiratory effort. Symmetric rise. No stridor. Clear_to_auscultation_No_rales_No_wheezes CARDIAC: Cardiac and regular rhytm. No_significant pedal edema. ABDOMEN: Soft. Nondistended. Nontender_No_rebound_or_guarding. Voluntary guarding with deep palpation. No CVA tenderness to palpation. Negative [place]illon sign. Negative Rovsing sign MSK: Normal muscle tone, without rigidity. Extremities without asymmetric deformity or swelling. SKIN: Warm and dry. No visible cyanosis or pallor NEUROLOGIC: Alert, oriented x3. Motor_and_sensation_grossly_intact. No truncal ataxia. Gait_normal Psych: Normal mood and affect, normal judgment and insight - COORDINATION OF CARE Case was discussed with: Patient , Patient's Physician Any labs and imaging that were ordered were interpreted as part of the medical decision making: Medical Decision Making/Plan: Differential diagnosis includes cholecystitis, choledocholithiasis, hepatitis, small bowel obstruction, volvulus, AAA, pancreatitis, atypical appendicitis, gastroparesis, gastritis, peptic ulcer disease, among others. Patient is well appearing with stable vital signs. Abdominal exam is non peritoneal with no guarding or rebound. I reviewed previous records. EGD done within the last month showed severe gastritis. No varices. Labs show mild DKA. He is acidotic with hyperglycemia. Will close gap with regular insulin. Unlikely to need insulin drip. EKG shows sinus tachycardia. Peaked T waves in lead V2 through V4. Potassium is within normal limits. The intervention included regular insulin for mild DKA. Held off on fluids as pt is ESRD. Also received Protonix, rocephin, zofran for PUD // labetalol for BP control.. Dialysis will likely be more successful in getting control of his BP. Nephro consulted for dialysis. The patient denies any bloody stool and has no pain out of proportion to exam, and no significant risk factors for mesenteric ischemia such as atrial fibrillation or severe PAD/PVD (peripheral arterial / vascular disease), thus definitive workup to rule out mesenteric ischemia was not pursued. Patient is afebrile, without any significant tenderness in the RUQ, and a negative [place] sign. The patients presentation does not appear to be consistent with acute cholecystitis and thus definitive imaging to rule it out was not pursued. The patient has no significant risk factors for AAA (abdominal aortic aneurysm) such as age over 50 with history of hypertension, connective tissue disorder, or 1st degree relative with AAA. the patient has normal dorsalis pedis pulses, no radiation of pain to the back, and no pulsatile mass felt on exam. The patients profile was overall low risk for AAA and definitive workup was not pursued. The patients symptoms are not consistent with ACS (acute coronary syndrome), symptoms are not exertional, EKG without obvious ischemic change. I spoke with Dr. Ibarra, and reviewed the patients presentation, workup, results, and treatment. They will admit the patient for further care and evaluation, and assume care of the patient at this time. Allergies: Coded Allergies: ASPIRIN (Unverified Allergy, Unknown, 02/08/20) COVID-19 Screening Contact w/high risk pt: No Recent Travel to affected area: No Experienced COVID-19 symptoms?: No COVID-19 Testing performed [employer]: No Nursing Documentation-PMH Past Medical History: No History, Except For Hx Cardiac Problems: No - HIV positive Hx Hypertension: Yes Hx Diabetes: Yes - type 1 Hx Cancer: No Hx Gastrointestinal Problems: No Hx Dialysis: Yes - T, Th, Sat Hx Neurological Problems: No Physical Exam Vital Signs Date Time Temp Pulse Resp B/P (MAP) Pulse Ox O2 Delivery O2 Flow Rate FiO2 05/26/20 10:06 97.9 101 16 239/142 (174) 99 Room Air Sp02 EP Interpretation: reviewed, normal Procedures Critical Care Time Critical Care Time Critical Care Statement Organ systems at risk include: Neuro, cardiac, circulatory, renal Critical care performed for 45 minutes. Time is exclusive of separately billable procedures. Time includes: direct patient care, continuous monitoring and multiple patient reassessment, coordination of patient care, review of patient's medical records, medical consultation, family consultation regarding treatment decisions and documentation of patient care. Medical Decision Making Diagnostic Impression: Primary Impression: Abdominal pain Additional Impressions: ESRD on dialysis Hypertensive emergency Diabetic ketoacidosis ESRD (end stage renal disease) HIV (human immunodeficiency virus infection) Hyperglycemia Liver hemangioma Nausea & vomiting Noncompliance Pancytopenia EKG Diagnostic Results Troponin ordered: Yes When was troponin ordered?: May 26, 2020 EKG Time: 10:20 EP Interpretation: Sinus tachycardia Rate: tachycardiac ST Segments: no acute changes ASA given to the pt in ED: No - Allergic PA Scribe Text 12-lead EKG (interpreted by me) Time: 1020 Indication: Rhythm analysis Tracing visualized and Interpreted by me. Rhythm: Tachycardia Rate: 109 bpm QTc: 482 Morphology: No_significant_ST_elevations_or_depressions, No STEMI Impression: Tachycardia, peak T waves in lead V2 through V4 Rhythm Strip Diag. Results Rhythm Strip Time: 10:30 EP Interpretation: yes Rate: 102 Rhythm: no PVC's, no ectopy - Sinus tachycardia Chest X-Ray Diagnostic Results Chest X-Ray Diagnostic Results : ANGELA Maciel Chest X-Ray: Views: [ 1 ] view(s) Indication: Vomiting Findings: Normal heart size. Mediastinum normal. No infiltrate. Impression: No acute disease The X-ray(s) were independently viewed and interpreted contemporaneously Electronically signed by Bibi rodriguez DO Reevaluation Time: 10:33 Last Vital Signs Date Time Temp Pulse Resp B/P (MAP) Pulse Ox O2 Delivery O2 Flow Rate FiO2 05/26/20 10:06 97.9 101 16 239/142 (174) 99 Room Air Status: improved Disposition: ADMITTED INPATIENT Admit Decision Time: 10:33 Condition: Stable Bibi Veras D.O. May 26, 2020 10:33
--- NOTE | 2020-05-26 10:40 | NUR ---
ED Nurse Note: IV line estbalished. Blood and Covid swab sent to lab.
[2020-05-26] MEDS ORDERED: Calcium Gluconate 1gm/50ml 50 ML IVPB ONE (10:45)
[2020-05-26 11:02] LABS: BASOPHILS % (AUTO) 2.4 % (0.0-2.0); EOSINOPHILS % (AUTO) 1.7 % (0.0-3.0); HEMATOCRIT 34.4 % (42.0-52.0); HEMOGLOBIN 11.6 G/DL (14.2-18.0); LYMPHOCYTES % (AUTO) 24.1 % (20.0-45.0); MEAN CORPUSCULAR VOLUME 96 FL (80-99); MONOCYTES % (AUTO) 5.7 % (1.0-10.0); NEUTROPHILS % (AUTO) 66.1 % (45.0-75.0); PLATELET COUNT 231 K/UL (150-450); RED CELL DISTRIBUTION WIDTH 13.3 % (11.6-14.8)
[2020-05-26 11:29] LABS: CALCIUM 9.2 MG/DL (8.5-10.1); POTASSIUM 4.3 MMOL/L (3.5-5.1)
[2020-05-26 11:32] LABS: ALBUMIN 4.1 G/DL (3.4-5.0); ALBUMIN/GLOBULIN RATIO 0.9 (1.0-2.7); BILIRUBIN,TOTAL 0.5 MG/DL (0.2-1.0)
[2020-05-26] MEDS ORDERED: Insulin Human Regular 100units/ml 3ml ONE (11:38)
[2020-05-26] MEDS ORDERED: Insulin Human Regular 100units/ml 3ml IV ONE (11:45)
[2020-05-26] MEDS ORDERED: Labetalol 5mg/ml 20ml vial IV ONE ×2 (11:45→12:15)
[2020-05-26] MEDS ORDERED: Morphine Sulfate 4mg/ml Inj (IV USE ONLY) IVP ONE (12:15)
--- NOTE | 2020-05-26 12:29 | Diagnostic Imaging Report ---
Indication: Chest pain Technique: One view of the chest Comparison: 05/10/2020 Findings: Lungs and pleural spaces are clear. Heart size is normal. No significant change Impression: No acute process
--- NOTE | 2020-05-26 13:46 | NUR ---
ED Nurse Note: Pt refused CRE/ VRE swab. MRSA swab collected and sent to lab.
--- NOTE | 2020-05-26 14:10 | NUR ---
ED Nurse Note: Report given to Renetta WLOFF.
--- NOTE | 2020-05-26 14:12 | NUR ---
TRANSFER TO FLOOR: Patient transferred to Telemetry, accompanied by 1 RN darren hardy via [facility]. Pt AAOx4, verbally responisve. No SOB, on room air. IV line on NIKOLAY 20g patent and intact. No skin issues. All belongings sent with the patient.
--- NOTE | 2020-05-26 14:20 | NUR ---
Received pt from ER nurse via mine. Pt is A/O x4 and verbally responsive. No SOB or acute distress. Pt states he has pain on his lower back and stomach and wants pain medications. Contacted Dr. Ibarra regarding pain medications and admission orders. Pt is scheduled for dialysis later on and consent signed. Contacted dialysis which is set up for 1600.
[2020-05-26] MEDS: DiphenhydrAMINE 50mg/ml Inj IVP PRN ×2 (16:00→20:55)
[2020-05-26] MEDS: NovoLOG Insulin Flexpen SUBQ SCH ×2 (16:30→21:14)
[2020-05-26] MEDS: Metoprolol Tartrate 50mg tab ORAL SCH ×2 (16:48→20:56)
[2020-05-26] MEDS: Losartan 50mg tab ORAL SCH (16:49)
--- NOTE | 2020-05-26 19:32 | NUR ---
NURSE HAND-OFF REPORT: Important Events on Shift: New Admit received dailysis with 3L out. Patient Status: Stable Diet: Renal Pending Orders: Pending Results/Labs: Pending MD notification: Latest Vital Signs: Temperature 97.8 , Pulse 97 , B/P 188 /96 , Respiratory Rate 20 , O2 SAT 98 , Room Air, O2 Flow Rate . Vital Sign Comment: EKG Rhythm: Sinus Rhythm Rhythm change?: N MD Notified?: - MD Response: Latest Durán Fall Score: 30 Fall Risk: Medium Risk Safety Measures: Call light Within Reach, Bed Alarm Zone 2, Side Rails Side Rails x2, Bed position Low and Locked. Fall Precautions: Yellow Socks Yellow Gown Patient Fall Education Report given to Bettina.
--- NOTE | 2020-05-26 19:40 | NUR ---
NURSE NOTES: Patient received from MARIELLA Jackson. Patient is awake, alert and oriented x 4. Patient is asking for pain medication and Benadryl at the moment, will provide medication. Patient is on room air. Patient has a 20 gauge left upper arm saline lock, patent and flushed. Patient has a right upper arm shunt. Patient wants the lights turned off. Bed is in lowest position, call light within reach. Will continue to monitor.
[2020-05-27] VITALS (7 sets, daily range): BP systolic 135–275; BP diastolic 81–156
[2020-05-27] MEDS: DiphenhydrAMINE 50mg/ml Inj IVP PRN ×6 (01:29→21:43)
--- NOTE | 2020-05-27 03:15 | Consultation ---
DATE OF CONSULTATION: 05/26/2020 CARDIOLOGY CONSULTATION CONSULTING PHYSICIAN: Shamir Dunlap M.D. REQUESTING PHYSICIAN: Ben Ibarra M.D. REASON FOR CONSULTATION: Congestive heart failure. HISTORY OF PRESENT ILLNESS: This is a 29-year-old male with end-stage renal disease and hypertensive heart disease. He presented to the emergency room with abdominal pain and episodes of blood-streaked emesis causing him to miss his usual dialysis session today. The patient had a recent endoscopy revealing mild gastritis just about a month ago. The patient has had some abdominal pain. He has known history of gastroparesis due to diabetes but has not missed any dialysis sessions up until today this morning. PAST MEDICAL HISTORY: End-stage renal disease, right upper extremity AV fistula, hypertensive heart disease, insulin-requiring diabetes mellitus, diabetic gastroparesis, history of gastritis, history of GI bleeding, dyslipidemia. SOCIAL HISTORY: Denies smoking, alcohol, or substance abuse. FAMILY HISTORY: Noncontributory. ALLERGIES: Include aspirin. MEDICATIONS: Prior to admission reviewed and reconciled. REVIEW OF SYSTEMS: No known COVID-19 exposures. No fevers or chills. No cough. No sputum production. No history of seizures or stroke. No dysuria. He does not produce much urine. No history of myocardial infarction, endocarditis, rheumatic heart disease, or irregular heart beats. Recent echocardiogram revealed normal ejection fraction. PHYSICAL EXAMINATION: GENERAL: Nontoxic but frequently retching bilious emesis. VITAL SIGNS: Initial blood pressure 239/142, heart rate 101, respiratory rate 16, afebrile. Subsequent blood pressure 188/96 with heart rate 97, respiratory rate 20. HEENT: Conjunctivae pink. Oropharynx clear. NECK: Supple. LUNGS: Clear. Palpable bruit right upper extremity. CARDIAC: Regular rhythm and rate. Normal S1, S2 with a fourth heart sound. ABDOMEN: Slightly distended and tender but no guarding or rebound, and soft. EXTREMITIES: No edema. LABORATORY AND DIAGNOSTIC DATA: White count 4, hemoglobin 11.6. Lactic acid 1.6. Troponin 0.028. Sodium 133, potassium 4.3, bicarb 24, BUN 39, creatinine , glucose 496. Electrocardiogram reveals sinus tachycardia, nonspecific ST-T wave changes with some T-wave peaking. Chest x-ray with no acute process. IMPRESSION: Hypertensive urgency, vomiting, GI bleeding, history of gastritis, insulin-requiring diabetes with complications, end-stage renal disease, acute diastolic congestive heart failure, acute myocardial ischemia. PLAN: 1. Cardiac monitoring. 2. IV antihypertensive therapy. 3. Antiemetics. 4. Serial hemoglobin. 5. Proton pump inhibitor. 6. Hemodialysis with ultrafiltration. 7. No anti-platelet or anticoagulant therapy at this time. 8. Insulin coverage by sliding scale. 9. Followup troponin level. Shamir Dunlap M.D. DR: Raúl JOB#: [id number] CC:
[2020-05-27] MEDS: NovoLOG Insulin Flexpen SUBQ SCH ×4 (05:43→21:55)
[2020-05-27] MEDS: Metoprolol Tartrate 50mg tab ORAL SCH ×2 (07:44→21:43)
[2020-05-27] MEDS: Losartan 50mg tab ORAL SCH (07:45)
[2020-05-27] MEDS: Morphine Sulfate 2mg/ml Inj(IV/IM USE ONLY) IVP PRN ×4 (07:46→21:45)
--- NOTE | 2020-05-27 07:55 | NUR ---
NURSE NOTES: Received report from Bettina/RN. Pt in bed, BP running high 275/156, BP medications given. Pt awake, alert and oriented X4, in stable condition. On room air, no distress or SOB noted. IV on left upper arm, patent and clean, SL. Bed in lowest position and locked, call light within reach, side rails up X2. Will continue plan of care.
--- NOTE | 2020-05-27 08:06 | NUR ---
NURSE HAND-OFF REPORT: Important Events on Shift:[Dr. Ibarra aware of patient's blood pressure] Patient Status: [] Diet: [renal diet] Pending Orders: [] Pending Results/Labs:[] Pending MD notification:[] Latest Vital Signs: Temperature 97.5 , Pulse 99 , B/P 248 /116 , Respiratory Rate 16 , O2 SAT 99 , Room Air, O2 Flow Rate . Vital Sign Comment: [] EKG Rhythm: Sinus Rhythm Rhythm change?: N MD Notified?: - MD Response: Latest Durán Fall Score: 30 Fall Risk: Medium Risk Safety Measures: Call light Within Reach, Bed Alarm Zone 1, Side Rails Side Rails x2, Bed position Low and Locked. Fall Precautions: Yellow Socks Report given to [MARIELLA Sutherland].
[2020-05-27] MEDS ORDERED: Dolutegravir Sodium 50mg tab ORAL SCH (09:00)
[2020-05-27] MEDS ORDERED: Heparin Sod 1000 units/ml 10ml IV PRN (09:00)
[2020-05-27] MEDS ORDERED: Losartan 50mg tab ORAL SCH (09:08)
[2020-05-27] MEDS: Pantoprazole Inj IVP SCH ×2 (09:30→21:43)
--- NOTE | 2020-05-27 10:00 | Consultation ---
DATE OF CONSULTATION: 05/27/2020 NEPHROLOGY CONSULTATION CONSULTING PHYSICIAN: Benito Maguire MD. REFERRING PHYSICIAN: Ben Ibarra MD. REASON FOR CONSULTATION: End-stage renal disease, uncontrolled hypertension, nausea, and vomiting. HISTORY OF PRESENT ILLNESS: The patient is a 29-year-old male with end-stage renal disease, insulin-dependent diabetes, recurrent hospitalizations who presents with uncontrolled nausea, vomiting, and states he had hematemesis at home, unable to hold on his blood pressure medications. His blood pressure was very high over 200 systolic. He is unable to hold down his medications and came to the emergency room. He was hospitalized several times in the last few months at [facility], had endoscopy showing some gastritis and there was evidence of gastroparesis. ALLERGIES: He is intolerant of aspirin, gets rash. HOME MEDICATIONS: Listed include calcium carbonate, clonidine patch, Tivicay, hydralazine, [place], losartan, metoclopramide, metoprolol, nifedipine, omeprazole, Zofran, Protonix, short-acting insulin well as long-acting insulin. He cannot give doses and confirm his medication list at this time. PAST SURGICAL HISTORY: AV fistula in the left arm. HABITS: He denies alcohol, smoking, and drugs. SYSTEM REVIEW: HEAD, EYES, EARS, NOSE, AND THROAT,: He has had diabetic retinopathy and prior eye procedures. Stable vision. Hearing is good. ENDOCRINE: Long-standing diabetes. No thyroid disease. PULMONARY: No asthma or TB. CARDIAC: History of severe hypertension. He has normal ejection fraction on echocardiogram. GASTROINTESTINAL: See history of present illness. GENITOURINARY: He makes little urine. He gets dialysis four times a week. NEUROLOGIC: He has had some mild paresthesias in his toes. No strokes or seizures. PHYSICAL EXAMINATION: GENERAL: The patient is a thin man, alert, lying in bed, looking uncomfortable. VITAL SIGNS: Temperature 97.5, pulse 99, respiratory rate 21, blood pressure 275/156. HEAD EYES, EARS, NOSE, AND THROAT: Sclerae are nonicteric. Ocular motions intact in all directions. Oral mucosa moist. NECK: No adenopathy. LUNGS: Clear. HEART: Rhythm is regular. A 1 to 2/6 systolic ejection murmur. ABDOMEN: Nondistended. I am unable to feel liver or spleen. There is mild guarding but no focal tenderness. EXTREMITIES: No edema, cyanosis, or clubbing. There is an AV fistula in his right arm. PERTINENT LABORATORY DATA: White count of 4000, hemoglobin 11.6. Sodium 133, potassium 4.3, chloride 91, CO2 24, BUN 39, creatinine is 10, glucose was 496. On arrival troponin 0.028. Albumin 4.1. AST 51, ALT 45, calcium 9.2. IMPRESSION: 1. End-stage renal disease. 2. Hypertensive urgency and malignant hypertension promoted by nausea and vomiting, unable to take his oral medications. 3. History of diabetic gastroparesis. 4. Diabetes with hyperglycemia. 5. Diabetic neuropathy. 6. Diabetic retinopathy. 7. History of taking opiates for pain which may exacerbate his underlying nausea and vomiting. PLAN: The patient is getting serial dialysis contribution to his gastritis, fluid overload. To better control his blood pressure, blood pressure regimen has been ordered. We will watch him closely in view of comorbidities. Benito Maguire M.D. : Syed JOB#: [id number] CC:
--- NOTE | 2020-05-27 10:14 | NUR ---
NURSE NOTES: Called Dr hendricks to let him Know Pt BP still high 234/115 after all BP meds given, pt is getting dialysis at this moment. Waiting for call back.
[2020-05-27] MEDS: Minoxidil 10mg tab ORAL SCH ×3 (10:39→17:34)
--- NOTE | 2020-05-27 15:54 | NUR ---
CASE MANAGEMENT:REVIEW 29 YR OLD MALE BIBA FROM HOME CC: ABDOMINAL PAIN PMH: ESRD ON HD SI: HYPERTENSIVE EMERGENCY 97.8 101 16 239/142 99% ON RA WBC-4.0 NA-133 BUN+39 CR+10.0 IS: IV ZOFRAN IV PROTONIX IV ROCEPHIN IV MORPHINE IV BENADRYL IV CA GLUCONATE IV INSULIN IV LABETALOL X2 BLOOD CX CXR : TO TELEMETRY UNIT DCP: HOME
--- NOTE | 2020-05-27 16:23 | Cardiology Report ---
APPROVED REPORT EKG Measurement Heart [id number] <Conclusion> Sinus tachycardia Otherwise normal ECG
--- NOTE | 2020-05-27 18:00 | History and Physical Report ---
DATE OF ADMISSION: 05/26/2020 CHIEF COMPLAINT: Abdominal pain. HISTORY OF PRESENT ILLNESS: The patient is a 29-year-old male well known to me. He has a history of end-stage renal disease, hypertension, diabetes, diabetic gastroparesis who presented with complaints of one to two days of intractable nausea, vomiting, abdominal pain. He has had similar presentations in the past, pain was felt to be likely due to gastroparesis. He had an extensive workup included endoscopy that was unremarkable. Pain was unable to be controlled and he had continued nausea and vomiting in the emergency room and is therefore admitted for further evaluation and care. PAST MEDICAL HISTORY: As above. PAST SURGICAL HISTORY: AV fistula. CURRENT MEDICATIONS: Reconciled and reviewed. ALLERGIES: Include aspirin. FAMILY HISTORY: Noncontributory. SOCIAL HISTORY: Negative for tobacco, ethanol, or drugs. REVIEW OF SYSTEMS: GENERAL: No fevers or chills. HEENT: No headaches or visual changes. CARDIOPULMONARY: No chest pain or shortness of breath. GASTROINTESTINAL: Positive for nausea and vomiting. Positive abdominal pain. No melena. No bright red blood per rectum. Some hematemesis is noted. No dysuria. EXTREMITIES: No joint pain or swelling. PHYSICAL EXAMINATION: VITAL SIGNS: Temperature 98.1, pulse 81, respirations 20, and blood pressure was . GENERAL: The patient is a well-developed thin male, in no apparent distress. HEART: Regular rate and rhythm. LUNGS: Clear. ABDOMEN: Soft, nontender, nondistended. EXTREMITIES: No clubbing, cyanosis, or edema. LABORATORY AND DIAGNOSTIC DATA: Coags normal. White count 4, hemoglobin 11, platelets 231. A1c was 9. Sodium 133, potassium 4.3, BUN of 39, creatinine was 10. Lipase is 114. Troponin was negative. ASSESSMENT: This is a 29-year-old male with history of end-stage renal disease, hypertension, diabetes, admitted with complaints of abdominal pain suspect secondary to gastroparesis. The patient does have some hematemesis, I suspect that this is secondary to local trauma from vomiting. PLAN: 1. IV pain medications, antiemetics. 2. Titrate antihypertensive regimen. 3. Renal consultation for hemodialysis. 4. Monitor blood sugars. 5. GI evaluation to follow the patient's hematemesis. Ben Ibarra M.D. DR: Jerson JOB#: [id number] CC:
--- NOTE | 2020-05-27 19:27 | NUR ---
NURSE HAND-OFF REPORT: Important Events on Shift:Blood pressure under control, last one at 1600 135/81. Patient Status: Stable Diet: Renal Pending Orders: Pending Results/Labs:BMP, CBC, Phos Pending MD notification: Latest Vital Signs: Temperature 98.8 , Pulse 90 , B/P 135 /81 , Respiratory Rate 18 , O2 SAT 99 , Room Air, O2 Flow Rate . Vital Sign Comment: Stable EKG Rhythm: Sinus Rhythm Rhythm change?: N MD Notified?: - MD Response: Latest Durán Fall Score: 30 Fall Risk: Medium Risk Safety Measures: Call light Within Reach, Bed Alarm Zone 1, Side Rails Side Rails x2, Bed position Low and Locked. Fall Precautions: Yellow Socks Report given to Bettina/RN.
--- NOTE | 2020-05-27 19:30 | NUR ---
NURSE NOTES: Patient received from MARIELLA Sutherland. Patient awake, alert and oriented x 4. Patient asking for apple juice, will provide. No complaints at this moment. Patient has a 20 gauge IV on left upper arm, patent and flushed. Bed in lowest position, call light within reach. Will continue to monitor.
[2020-05-27] MEDS ORDERED: LABETALOL HCL300 MG ORAL (19:39)
[2020-05-27] MEDS ORDERED: ZOFRAN ODT8 MG ORAL (19:39)
[2020-05-27] MEDS ORDERED: LANTUS SOL100 UNIT/1 SUBQ (19:39)
[2020-05-27] MEDS ORDERED: PREZCOBIX 8001 EACH PO (19:39)
[2020-05-27] MEDS ORDERED: INSULIN AS100 UNIT/3 SQ (19:39)
[2020-05-27] MEDS ORDERED: RENA-VITE RX T1 EAC1 PO (19:42)
--- NOTE | 2020-05-27 21:42 | General Progress Note ---
Subjective Allergies: Coded Allergies: ASPIRIN (Unverified Allergy, Unknown, 02/08/20) Objective Last 24 Hour Vital Signs Date Time Temp Pulse Resp B/P (MAP) Pulse Ox O2 Delivery O2 Flow Rate FiO2 05/27/20 17:34 135/81 05/27/20 17:33 90 135/81 05/27/20 16:00 90 05/27/20 16:00 98.8 86 18 135/81 (99) 99 05/27/20 13:24 167/86 05/27/20 12:00 84 05/27/20 12:00 98.1 81 20 167/86 (113) 99 05/27/20 11:48 186/100 05/27/20 10:39 188/101 05/27/20 09:30 198/114 05/27/20 09:00 Room Air 05/27/20 08:00 91 05/27/20 08:00 97.5 99 21 275/156 (195) 100 05/27/20 07:46 99 275/156 05/27/20 07:45 275/156 05/27/20 07:44 99 275/156 05/27/20 04:00 86 05/27/20 04:00 97.5 85 16 248/116 (160) 99 05/27/20 00:55 90 05/27/20 00:00 98.1 89 18 207/108 (141) 99 Intake and Output 05/26/20 05/27/20 19:00 07:00 Intake Total 285 ml Output Total 3000 ml Balance 285 ml -3000 ml Intake Oral 180 ml IV Total 105 ml Output Hemodialysis UF 3000 ml # Voids 1 Laboratory Tests 05/27/20 05:37: POC Whole Blood Glucose 258H 05/27/20 11:34: POC Whole Blood Glucose 230H 05/27/20 16:37: POC Whole Blood Glucose 271H Height (Feet): 5 Height (Inches): 7.00 Weight (Pounds): 163 Assessment/Plan Assessment/Plan: Assessment - recurrent N/V and abd pain - DM wiht presumed DM gastroparesis - ESRD / HD - DM - HTN - Gastritis Recommendations BID PPI Elevate HOB po as tolerated anti emetics will consider gastric emptying study Thank you MD Antoinette Curry Payman MD May 27, 2020 21:42
--- NOTE | 2020-05-27 23:33 | Cardiology Progress Note ---
Subjective DATE OF SERVICE: May 27, 2020 No new bleeding episodes. Nauseated, with some vomiting. BP parameters tenuous, but improving. 2D Echo: normal LVEF, Mild TR and pulm HTN (38mm Hg) Objective Last 24 Hour Vital Signs Date Time Temp Pulse Resp B/P (MAP) Pulse Ox O2 Delivery O2 Flow Rate FiO2 05/27/20 21:43 91 143/89 05/27/20 21:00 Room Air 05/27/20 20:00 97.9 91 18 143/89 (107) 95 05/27/20 20:00 89 05/27/20 17:34 135/81 05/27/20 17:33 90 135/81 05/27/20 16:00 90 05/27/20 16:00 98.8 86 18 135/81 (99) 99 05/27/20 13:24 167/86 05/27/20 12:00 84 05/27/20 12:00 98.1 81 20 167/86 (113) 99 05/27/20 11:48 186/100 05/27/20 10:39 188/101 05/27/20 09:30 198/114 05/27/20 09:00 Room Air 05/27/20 08:00 91 05/27/20 08:00 97.5 99 21 275/156 (195) 100 05/27/20 07:46 99 275/156 05/27/20 07:45 275/156 05/27/20 07:44 99 275/156 05/27/20 04:00 86 05/27/20 04:00 97.5 85 16 248/116 (160) 99 05/27/20 00:55 90 05/27/20 00:00 98.1 89 18 207/108 (141) 99 ROS: no change from my evaluation of 05/26/20. HEENT: normal ENT inspection RHYTHM: NSR, PACs LUNGS: lungs clear bilaterally CARDIAC: normal rate, regular rhythm, normal S1 and S2, gallop/S4 ABDOMEN: normal bowel sounds, non tender, soft, no organomegaly EXTREMITIES: No edema, other - AV fistula with bruit on right Laboratory Tests Test 05/27/20 05:37 05/27/20 11:34 05/27/20 16:37 POC Whole Blood Glucose 258 MG/DL (74-106) H 230 MG/DL (74-106) H 271 MG/DL (74-106) H Microbiology Date/Time Source Procedure Growth Status 05/26/20 10:35 Nasopharynx SARS-CoV-2 RdRp Gene Assay - Final Complete Assessment/Plan Assessment/Plan Nausea/vomiting Hx gastritis with GI bleeding ESRD Hypertensive urgency - improved Pulmonary hypertension Ac/chronic diastolic CHF Monitor hemoglobin Titrate antiHTN regimen Cardiac monitoring HD with UF Shamir Dunlap MD May 27, 2020 23:33
[2020-05-28] VITALS: BP 121/81
--- NOTE | 2020-05-28 00:34 | NUR ---
NURSE NOTES: Patient wants an increase of morphine from 2 mg to 4 mg. Called and left a message to Dr. Dunlap. Awaiting for call back.
[2020-05-28] MEDS: DiphenhydrAMINE 50mg/ml Inj IVP PRN ×5 (01:48→18:38)
[2020-05-28] MEDS: Morphine Sulfate 2mg/ml Inj(IV/IM USE ONLY) IVP PRN ×5 (01:49→20:33)
[2020-05-28 04:00] VITALS: BP 136/84
--- NOTE | 2020-05-28 04:15 | Consultation ---
DATE OF CONSULTATION: 05/27/2020 GASTROENTEROLOGY CONSULTATION CONSULTING PHYSICIAN: Alexander Curry MD CHIEF COMPLAINT: I was asked to see this patient by Dr. Ben Ibarra for evaluation of abdominal pain and vomiting. HISTORY OF PRESENT ILLNESS: The patient is a 29-year-old man who comes into the hospital due to epigastric abdominal pain and nausea and vomiting for the past 2 to 3 days. The patient has had a history of end-stage renal disease and was seen previously with the same diagnosis. He underwent an endoscopy on his last admission about a few weeks ago showing gastritis. He stated he does not drink alcohol. His bowel movements are brown and normal and his emesis is dark green. He has had some nausea and also is diabetic and presumably has been suspected as having diabetic gastroparesis. PAST MEDICAL HISTORY: History of end-stage renal disease, on dialysis; hypertension; diabetes; diabetic gastroparesis; recurrent nausea and vomiting. FAMILY HISTORY: Noncontributory. SOCIAL HISTORY: Patient does not smoke or drink alcohol or use drugs. ALLERGIES: Include aspirin. REVIEW OF SYSTEMS: Otherwise negative. PHYSICAL EXAMINATION: GENERAL: A thin man, seen in his room. HEENT: Normocephalic, atraumatic. Sclerae are anicteric. NECK: Supple. CHEST: Clear to auscultation. CARDIOVASCULAR: Revealed a regular rate. ABDOMEN: Soft. Mild diffuse tenderness to palpation without guarding. EXTREMITIES: Revealed no edema. LABORATORY DATA: Noted. ASSESSMENT: This patient presents with a bout of nausea, vomiting, and abdominal pain. The patient should be treated supportively with IV fluids, proton pump inhibitor, and follow up of labs. The patient had a recent endoscopy. Therefore gastric emptying study to be done to evaluate emptying. In the meantime, his diet can be slowly advanced as tolerated. RECOMMENDATIONS: Per above discussion and per orders written in the chart. Thank you for asking me to participate in the care of this patient. Alexander Curry M.D. DR: KENYATTA JOB#: [id number] CC: FRANTZ
[2020-05-28] MEDS ORDERED: Heparin Sod 1000 units/ml 10ml IV PRN (06:00)
[2020-05-28] MEDS: NovoLOG Insulin Flexpen SUBQ SCH ×4 (06:24→20:53)
--- NOTE | 2020-05-28 07:15 | NUR ---
NURSE HAND-OFF REPORT: Important Events on Shift:[Patient kept requesting morphine dose to be increased] Patient Status: [] Diet: [Renal diet] Pending Orders: [] Pending Results/Labs:[] Pending MD notification:[] Latest Vital Signs: Temperature 98.1 , Pulse 88 , B/P 136 /84 , Respiratory Rate 18 , O2 SAT 97 , Room Air, O2 Flow Rate . Vital Sign Comment: [] EKG Rhythm: Sinus Rhythm Rhythm change?: N MD Notified?: - MD Response: Latest Durán Fall Score: 30 Fall Risk: Medium Risk Safety Measures: Call light Within Reach, Bed Alarm Zone 1, Side Rails Side Rails x2, Bed position Low and Locked. Fall Precautions: Yellow Socks Report given to [MARIELLA Sutherland].
--- NOTE | 2020-05-28 07:17 | NUR ---
NURSE NOTES: Received report from Bettina/RN. Pt in bed, awake, alert and oriented X4, in stable condition. On room air, no distress or SOB noted. IV on left upper arm, patent and clean, SL. Right upper arm shunt for dialysis. Bed in lowest position and locked, call light within reach, side rails up X2. Will continue plan of care.
[2020-05-28 07:18] LABS: EOSINOPHILS % (AUTO) 2.2 % (0.0-3.0); HEMATOCRIT 34.2 % (42.0-52.0); HEMOGLOBIN 11.3 G/DL (14.2-18.0); LYMPHOCYTES % (AUTO) 27.4 % (20.0-45.0); MEAN CORPUSCULAR VOLUME 97 FL (80-99); MONOCYTES % (AUTO) 8.2 % (1.0-10.0); NEUTROPHILS % (AUTO) 60.2 % (45.0-75.0); PLATELET COUNT 209 K/UL (150-450); RED BLOOD COUNT 3.51 M/UL (4.70-6.10); RED CELL DISTRIBUTION WIDTH 13.9 % (11.6-14.8); WHITE BLOOD COUNT 4.5 K/UL (4.8-10.8)
[2020-05-28 07:30] LABS: CALCIUM 9.1 MG/DL (8.5-10.1); CREATININE 7.6 MG/DL (0.55-1.30); PHOSPHORUS 5.4 MG/DL (2.5-4.9); POTASSIUM 4.3 MMOL/L (3.5-5.1)
[2020-05-28 08:00] VITALS: BP 141/64
[2020-05-28] MEDS ORDERED: Losartan 50mg tab ORAL SCH (09:00)
[2020-05-28] MEDS: Losartan 50mg tab ORAL SCH (09:05)
[2020-05-28] MEDS: Pantoprazole Inj IVP SCH ×2 (09:05→20:33)
[2020-05-28] MEDS: Metoprolol Tartrate 50mg tab ORAL SCH ×2 (09:07→20:52)
[2020-05-28] MEDS: Minoxidil 10mg tab ORAL SCH ×3 (09:07→16:54)
--- NOTE | 2020-05-28 10:03 | Nephrology Progress Note ---
Assessment/Plan Problem List: (1) Gastroparesis diabeticorum (2) Malignant hypertension (arteriolar nephrosclerosis) (3) Abdominal pain (4) Uncontrolled hypertension (5) ESRD (end stage renal disease) (6) HIV (human immunodeficiency virus infection) (7) Nausea & vomiting (8) Type 1 diabetes Plan HD 05/28, ppi, avoid opiates, GI evaluating Subjective Constitutional: Reports: weakness HEENT: Reports: no symptoms Genitourinary: Reports: no symptoms Neurologic/Psychiatric: Reports: no symptoms Subjective still nausea emesis Objective Objective Last 24 Hour Vital Signs Date Time Temp Pulse Resp B/P (MAP) Pulse Ox O2 Delivery O2 Flow Rate FiO2 05/28/20 09:19 Room Air 05/28/20 09:07 141/64 05/28/20 09:07 87 141/64 05/28/20 09:07 87 141/64 05/28/20 09:05 141/64 05/28/20 08:00 97.5 87 20 141/64 (89) 100 05/28/20 04:00 98.1 88 18 136/84 (101) 97 05/28/20 04:00 81 05/28/20 00:00 91 05/28/20 00:00 98.0 92 18 121/81 (94) 95 05/27/20 21:43 91 143/89 05/27/20 21:00 Room Air 05/27/20 20:00 97.9 91 18 143/89 (107) 95 05/27/20 20:00 89 05/27/20 17:34 135/81 05/27/20 17:33 90 135/81 05/27/20 16:00 90 05/27/20 16:00 98.8 86 18 135/81 (99) 99 05/27/20 13:24 167/86 05/27/20 12:00 84 05/27/20 12:00 98.1 81 20 167/86 (113) 99 05/27/20 11:48 186/100 05/27/20 10:39 188/101 Intake and Output 05/27/20 05/28/20 19:00 07:00 Intake Total 1200 ml 240 ml Output Total 3000 ml Balance -1800 ml 240 ml Intake Oral 240 ml Other 1200 ml Output Hemodialysis UF 3000 ml # Voids 2 Laboratory Tests 05/27/20 11:34: POC Whole Blood Glucose 230H 05/27/20 16:37: POC Whole Blood Glucose 271H 05/28/20 05:00: White Blood Count 4.5L, Red Blood Count 3.51L, Hemoglobin 11.3L, Hematocrit 34.2L, Mean Corpuscular Volume 97, Mean Corpuscular Hemoglobin 32.3H, Mean Corpuscular Hemoglobin Concent 33.1, Red Cell Distribution Width 13.9, Platelet Count 209, Mean Platelet Volume 5.8L, Neutrophils (%) (Auto) 60.2, Lymphocytes (%) (Auto) 27.4, Monocytes (%) (Auto) 8.2, Eosinophils (%) (Auto) 2.2, Basophils (%) (Auto) 2.0, Sodium Level 133L, Potassium Level 4.3, Chloride Level 92L, Carbon Dioxide Level 27, Anion Gap 14, Blood Urea Nitrogen 23H, Creatinine 7.6H, Estimat Glomerular Filtration Rate 10.4, Glucose Level 428H, Calcium Level 9.1, Phosphorus Level 5.4H Height (Feet): 5 Height (Inches): 7.00 Weight (Pounds): 163 General Appearance: no apparent distress, alert EENT: normal ENT inspection Neck: normal alignment Cardiovascular: regular rhythm Respiratory/Chest: lungs clear Abdomen: non tender, no organomegaly Extremities: no edema 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
--- NOTE | 2020-05-28 11:39 | General Progress Note ---
Subjective ROS Limited/Unobtainable: No Constitutional: Reports: no symptoms HEENT: Reports: no symptoms Cardiovascular: Reports: no symptoms Respiratory: Reports: no symptoms Gastrointestinal/Abdominal: Reports: abdominal pain, nausea Genitourinary: Reports: no symptoms Neurologic/Psychiatric: Reports: no symptoms Endocrine: Reports: no symptoms Hematologic/Lymphatic: Reports: no symptoms Allergies: Coded Allergies: ASPIRIN (Unverified Allergy, Unknown, 02/08/20) All Systems: reviewed and negative except above Subjective Continues to complain of abdominal pain. States he had vomiting yesterday. Not Observed by staff. Requesting increase in pain medication dose. I input noted. Extensive work-up just a month ago unremarkable Objective Last 24 Hour Vital Signs Date Time Temp Pulse Resp B/P (MAP) Pulse Ox O2 Delivery O2 Flow Rate FiO2 05/28/20 09:19 Room Air 05/28/20 09:07 141/64 05/28/20 09:07 87 141/64 05/28/20 09:07 87 141/64 05/28/20 09:05 141/64 05/28/20 08:00 85 05/28/20 08:00 97.5 87 20 141/64 (89) 100 05/28/20 04:00 98.1 88 18 136/84 (101) 97 05/28/20 04:00 81 05/28/20 00:00 91 05/28/20 00:00 98.0 92 18 121/81 (94) 95 05/27/20 21:43 91 143/89 05/27/20 21:00 Room Air 05/27/20 20:00 97.9 91 18 143/89 (107) 95 05/27/20 20:00 89 05/27/20 17:34 135/81 05/27/20 17:33 90 135/81 05/27/20 16:00 90 05/27/20 16:00 98.8 86 18 135/81 (99) 99 05/27/20 13:24 167/86 05/27/20 12:00 84 05/27/20 12:00 98.1 81 20 167/86 (113) 99 05/27/20 11:48 186/100 Intake and Output 0 05/27/20 05/28/20 19:00 07:00 Intake Total 1200 ml 240 ml Output Total 3000 ml Balance -1800 ml 240 ml Intake Oral 240 ml Other 1200 ml Output Hemodialysis UF 3000 ml # Voids 2 Laboratory Tests 05/27/20 16:37: POC Whole Blood Glucose 271H 05/28/20 05:00: White Blood Count 4.5L, Red Blood Count 3.51L, Hemoglobin 11.3L, Hematocrit 34.2L, Mean Corpuscular Volume 97, Mean Corpuscular Hemoglobin 32.3H, Mean Corpuscular Hemoglobin Concent 33.1, Red Cell Distribution Width 13.9, Platelet Count 209, Mean Platelet Volume 5.8L, Neutrophils (%) (Auto) 60.2, Lymphocytes (%) (Auto) 27.4, Monocytes (%) (Auto) 8.2, Eosinophils (%) (Auto) 2.2, Basophils (%) (Auto) 2.0, Sodium Level 133L, Potassium Level 4.3, Chloride Level 92L, Carbon Dioxide Level 27, Anion Gap 14, Blood Urea Nitrogen 23H, Creatinine 7.6H, Estimat Glomerular Filtration Rate 10.4, Glucose Level 428H, Calcium Level 9.1, Phosphorus Level 5.4H 05/28/20 06:18: POC Whole Blood Glucose [Pending] Height (Feet): 5 Height (Inches): 7.00 Weight (Pounds): 163 General Appearance: WD/WN, no apparent distress, alert EENT: normal ENT inspection Neck: non-tender, normal alignment, supple Cardiovascular: normal peripheral pulses, normal rate, regularly irregular Respiratory/Chest: chest wall non-tender, lungs clear, normal breath sounds, no respiratory distress, no accessory muscle use Abdomen: normal bowel sounds, non tender, soft, no organomegaly Edema: no edema noted Arm (L), no edema noted Arm (R) 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, alert, oriented x 3, responsive Lymphatic: normal anterior cervical (L), normal anterior cervical (R) Assessment/Plan Problem List: (1) Uncontrolled hypertension ICD Codes: I10 - Essential (primary) hypertension SNOMED: 17999015, 22425996 (2) Type 1 diabetes ICD Codes: E10.9 - Type 1 diabetes mellitus without complications SNOMED: 17804223 (3) Malignant hypertension (arteriolar nephrosclerosis) ICD Codes: I12.9 - Hypertensive chronic kidney disease with stage 1 through stage 4 chronic kidney disease, or unspecified chronic kidney disease SNOMED: 58609313 (4) Gastroparesis diabeticorum ICD Codes: E11.43 - Type 2 diabetes mellitus with diabetic autonomic ( poly)neuropathy; K31.84 - Gastroparesis SNOMED: 62451241, 064748780 (5) Abdominal pain ICD Codes: R10.9 - Unspecified abdominal pain SNOMED: 47970421 Status: stable Assessment/Plan: Continue current pain regimen Add oral pain meds Limits set We will discontinue IV pain meds tomorrow Monitor for vomiting. IV Zofran as needed. Continue Reglan Monitor BP and titrate BP meds as needed PPI treatment HD per renal Ben Ibarra MD May 28, 2020 11:39
[2020-05-28 12:00] VITALS: BP 96/51
[2020-05-28 16:00] VITALS: BP 123/61
--- NOTE | 2020-05-28 16:18 | Cardiology Progress Note ---
Subjective DATE OF SERVICE: May 28, 2020 C/O abdominal pain; wants more pain meds. No new bleeding episodes. Nauseated, with some vomiting. BP parameters tenuous; dropped below 100 systolic this afternoon, otherwise high. 2D Echo: normal LVEF, Mild TR and pulm HTN (38mm Hg) Objective Last 24 Hour Vital Signs Date Time Temp Pulse Resp B/P (MAP) Pulse Ox O2 Delivery O2 Flow Rate FiO2 05/28/20 12:40 96/51 05/28/20 12:00 98.6 81 20 96/51 (66) 100 05/28/20 12:00 78 05/28/20 09:19 Room Air 05/28/20 09:07 141/64 05/28/20 09:07 87 141/64 05/28/20 09:07 87 141/64 05/28/20 09:05 141/64 05/28/20 08:00 85 05/28/20 08:00 97.5 87 20 141/64 (89) 100 05/28/20 04:00 98.1 88 18 136/84 (101) 97 05/28/20 04:00 81 05/28/20 00:00 91 05/28/20 00:00 98.0 92 18 121/81 (94) 95 05/27/20 21:43 91 143/89 05/27/20 21:00 Room Air 05/27/20 20:00 97.9 91 18 143/89 (107) 95 05/27/20 20:00 89 05/27/20 17:34 135/81 05/27/20 17:33 90 135/81 ROS: no change from my evaluation of 05/26/20. HEENT: normal ENT inspection RHYTHM: NSR, PACs LUNGS: lungs clear bilaterally CARDIAC: normal rate, regular rhythm, normal S1 and S2, gallop/S4 ABDOMEN: normal bowel sounds, non tender, soft, no organomegaly EXTREMITIES: No edema, other - AV fistula with bruit on right Laboratory Tests Test 05/27/20 16:37 05/28/20 05:00 05/28/20 06:18 POC Whole Blood Glucose 271 MG/DL (74-106) H Pending White Blood Count 4.5 K/UL (4.8-10.8) L Red Blood Count 3.51 M/UL (4.70-6.10) L Hemoglobin 11.3 G/DL (14.2-18.0) L Hematocrit 34.2 % (42.0-52.0) L Mean Corpuscular Volume 97 FL (80-99) Mean Corpuscular Hemoglobin 32.3 PG (27.0-31.0) H Mean Corpuscular Hemoglobin Concent 33.1 G/DL (32.0-36.0) Red Cell Distribution Width 13.9 % (11.6-14.8) Platelet Count 209 K/UL (150-450) Mean Platelet Volume 5.8 FL (6.5-10.1) L Neutrophils (%) (Auto) 60.2 % (45.0-75.0) Lymphocytes (%) (Auto) 27.4 % (20.0-45.0) Monocytes (%) (Auto) 8.2 % (1.0-10.0) Eosinophils (%) (Auto) 2.2 % (0.0-3.0) Basophils (%) (Auto) 2.0 % (0.0-2.0) Sodium Level 133 MMOL/L (136-145) L Potassium Level 4.3 MMOL/L (3.5-5.1) Chloride Level 92 MMOL/L (98-107) L Carbon Dioxide Level 27 MMOL/L (21-32) Anion Gap 14 mmol/L (5-15) Blood Urea Nitrogen 23 mg/dL (7-18) H Creatinine 7.6 MG/DL (0.55-1.30) H Estimat Glomerular Filtration Rate 10.4 mL/min (>60) Glucose Level 428 MG/DL (74-106) H Calcium Level 9.1 MG/DL (8.5-10.1) Phosphorus Level 5.4 MG/DL (2.5-4.9) H Microbiology Date/Time Source Procedure Growth Status 05/26/20 13:45 Nasal Nares MRSA Culture - Final Staphylococcus Aureus - Mrsa Complete 05/26/20 10:40 Blood Blood Culture - Preliminary NO GROWTH AFTER 24 HOURS Resulted 05/26/20 10:40 Blood Blood Culture - Preliminary NO GROWTH AFTER 24 HOURS Resulted 05/26/20 10:35 Nasopharynx SARS-CoV-2 RdRp Gene Assay - Final Complete Assessment/Plan Assessment/Plan Nausea/vomiting Gastroparesis Hx gastritis with GI bleeding ESRD Hypertensive urgency - improved Pulmonary hypertension Ac/chronic diastolic CHF Possible component of "med-seeking" behaviour Monitor hemoglobin Titrate antiHTN regimen DC cardiac monitoring once BP parameters more consistently controlled. HD with UF Agree with limits on IV pain meds Shamir Dunlap MD May 28, 2020 16:18
--- NOTE | 2020-05-28 18:22 | General Progress Note ---
Subjective Allergies: Coded Allergies: ASPIRIN (Unverified Allergy, Unknown, 02/08/20) Subjective above noted appears comfortable on my arrival Objective Last 24 Hour Vital Signs Date Time Temp Pulse Resp B/P (MAP) Pulse Ox O2 Delivery O2 Flow Rate FiO2 05/28/20 17:12 73 123/61 05/28/20 17:10 123/61 05/28/20 16:54 123/61 05/28/20 16:00 73 05/28/20 16:00 98.4 75 20 123/61 (81) 100 05/28/20 12:40 96/51 05/28/20 12:00 98.6 81 20 96/51 (66) 100 05/28/20 12:00 78 05/28/20 09:19 Room Air 05/28/20 09:07 141/64 05/28/20 09:07 87 141/64 05/28/20 09:07 87 141/64 05/28/20 09:05 141/64 05/28/20 08:00 85 05/28/20 08:00 97.5 87 20 141/64 (89) 100 05/28/20 04:00 98.1 88 18 136/84 (101) 97 05/28/20 04:00 81 05/28/20 00:00 91 05/28/20 00:00 98.0 92 18 121/81 (94) 95 05/27/20 21:43 91 143/89 05/27/20 21:00 Room Air 05/27/20 20:00 97.9 91 18 143/89 (107) 95 05/27/20 20:00 89 Intake and Output 05/27/20 05/28/20 19:00 07:00 Intake Total 1200 ml 240 ml Output Total 3000 ml Balance -1800 ml 240 ml Intake Oral 240 ml Other 1200 ml Output Hemodialysis UF 3000 ml # Voids 2 Laboratory Tests 05/28/20 05:00: White Blood Count 4.5L, Red Blood Count 3.51L, Hemoglobin 11.3L, Hematocrit 34.2L, Mean Corpuscular Volume 97, Mean Corpuscular Hemoglobin 32.3H, Mean Corpuscular Hemoglobin Concent 33.1, Red Cell Distribution Width 13.9, Platelet Count 209, Mean Platelet Volume 5.8L, Neutrophils (%) (Auto) 60.2, Lymphocytes (%) (Auto) 27.4, Monocytes (%) (Auto) 8.2, Eosinophils (%) (Auto) 2.2, Basophils (%) (Auto) 2.0, Sodium Level 133L, Potassium Level 4.3, Chloride Level 92L, Carbon Dioxide Level 27, Anion Gap 14, Blood Urea Nitrogen 23H, Creatinine 7.6H, Estimat Glomerular Filtration Rate 10.4, Glucose Level 428H, Calcium Level 9.1, Phosphorus Level 5.4H 05/28/20 06:18: POC Whole Blood Glucose [Pending] Height (Feet): 5 Height (Inches): 7.00 Weight (Pounds): 163 Objective Thin man NCAT supple CTA RR abd soft ND, Diffuse TTP, but not when distracted no edema Assessment/Plan Status: stable Assessment/Plan: Assessment - recurrent N/V and abd pain - DM wiht presumed DM gastroparesis - ESRD / HD - DM - HTN - Gastritis Recommendations BID PPI Elevate HOB po as tolerated anti emetics agree with taper off of pain Alexander Torres MD May 28, 2020 18:22
--- NOTE | 2020-05-28 19:13 | NUR ---
NURSE HAND-OFF REPORT: Important Events on Shift: dialysis (2L output) Patient Status: Full code, stable Diet: Renal Pending Orders: n/a Pending Results/Labs:n/a Pending MD notification:[] Latest Vital Signs: Temperature 98.4 , Pulse 73 , B/P 123 /61 , Respiratory Rate 20 , O2 SAT 100 , Room Air, O2 Flow Rate . Vital Sign Comment: [] EKG Rhythm: Sinus Rhythm Rhythm change?: N MD Notified?: - MD Response: Latest Durán Fall Score: 30 Fall Risk: Medium Risk Safety Measures: Call light Within Reach, Bed Alarm Zone 1, Side Rails Side Rails x2, Bed position Low and Locked. Fall Precautions: Yellow Socks Report given to MARIELLA Astudillo
--- NOTE | 2020-05-28 19:20 | NUR ---
NURSE NOTES: Pt received from MARIELLA Hernandez. Pt is resting comfortably in bed and c/o pain; will implement pain interventions and administer medication as ordered. Pt is ambulatory and A/Ox4; Pt is fatigued. Pt is on cardiac monitoring SR and asymptomatic. Pt is breathing unlabored on RA and asymptomatic. Pt has STEFANIE shunt for dialysis on Saturday, and Saturday. Pt has LUpper Arm 20G SL patent with skin dry and intact. Bed is locked in lowest position with call light within reach. Will continue to monitor.
[2020-05-28 20:00] VITALS: BP 109/68
[2020-05-29] VITALS: BP 147/82
[2020-05-29] MEDS: DiphenhydrAMINE 50mg/ml Inj IVP PRN ×6 (00:34→21:22)
[2020-05-29] MEDS: Morphine Sulfate 2mg/ml Inj(IV/IM USE ONLY) IVP PRN ×6 (01:05→21:22)
[2020-05-29 04:00] VITALS: BP 112/55
[2020-05-29] MEDS: NovoLOG Insulin Flexpen SUBQ SCH ×5 (06:30→20:11)
--- NOTE | 2020-05-29 07:12 | NUR ---
NURSE NOTES: Received report from Baudilio Chris RN. Patient sitting up in bed, awake and alert, bed in lowest position, call light within reach, on room air, aspirations at 16 breaths per minute, in no apparent distress.
--- NOTE | 2020-05-29 07:20 | NUR ---
NURSE HAND-OFF REPORT: Important Events on Shift:Pt had BG of 465 and received 10 units of novolog. MD aware. Patient Status: stable Diet: Renal Diet Pending Results/Labs:AM Labs Latest Vital Signs: Temperature 98.5 , Pulse 85 , B/P 112 /55 , Respiratory Rate 18 , O2 SAT 100 , Room Air, O2 Flow Rate . Vital Sign Comment: VSS EKG Rhythm: Sinus Rhythm Rhythm change?: N MD Notified?: - MD Response: Latest Durán Fall Score: 30 Fall Risk: Medium Risk Safety Measures: Call light Within Reach, Bed Alarm Zone 1, Side Rails Side Rails x2, Bed position Low and Locked. Fall Precautions: Yellow Socks Report given to MARIELLA Fitzgerald.
[2020-05-29 08:00] VITALS: BP 129/67
[2020-05-29] MEDS: Pantoprazole Inj IVP SCH ×2 (08:55→20:05)
[2020-05-29] MEDS: Losartan 50mg tab ORAL SCH (08:56)
[2020-05-29] MEDS: Minoxidil 10mg tab ORAL SCH ×3 (08:57→18:00)
[2020-05-29] MEDS: Metoprolol Tartrate 50mg tab ORAL SCH ×3 (08:59→20:17)
--- NOTE | 2020-05-29 10:24 | Nephrology Progress Note ---
Assessment/Plan Problem List: (1) Gastroparesis diabeticorum (2) Malignant hypertension (arteriolar nephrosclerosis) (3) Abdominal pain (4) Uncontrolled hypertension (5) ESRD (end stage renal disease) (6) HIV (human immunodeficiency virus infection) (7) Nausea & vomiting (8) Type 1 diabetes Plan HD 05/28, 05/30 ppi, avoid opiates, GI evaluating bp improved with minoxidil Subjective Constitutional: Reports: weakness Genitourinary: Reports: no symptoms Neurologic/Psychiatric: Reports: no symptoms Subjective less nausea emesis Objective Objective Last 24 Hour Vital Signs Date Time Temp Pulse Resp B/P (MAP) Pulse Ox O2 Delivery O2 Flow Rate FiO2 05/29/20 08:59 88 129/67 05/29/20 08:59 88 129/67 05/29/20 08:57 129/67 05/29/20 08:56 129/67 05/29/20 08:00 89 05/29/20 08:00 97.9 88 16 129/67 (87) 100 05/29/20 05:16 98.5 05/29/20 04:00 98.5 92 18 112/55 (74) 100 05/29/20 04:00 85 05/29/20 01:35 98.4 05/29/20 00:00 97.5 88 16 147/82 (103) 95 05/29/20 00:00 88 05/28/20 21:03 98.4 05/28/20 21:00 Room Air 05/28/20 20:52 83 105/72 05/28/20 20:00 82 05/28/20 20:00 98.7 82 20 109/68 (82) 99 05/28/20 17:12 73 123/61 05/28/20 17:10 123/61 05/28/20 16:54 123/61 05/28/20 16:00 73 05/28/20 16:00 98.4 75 20 123/61 (81) 100 05/28/20 12:40 96/51 05/28/20 12:00 98.6 81 20 96/51 (66) 100 05/28/20 12:00 78 Intake and Output 05/28/20 05/29/20 19:00 07:00 Intake Total 480 ml Output Total 2000 ml 2000 ml Balance -2000 ml -1520 ml Intake Oral 480 ml Output Hemodialysis UF 2000 ml 2000 ml # Voids 2 Laboratory Tests 05/29/20 04:09: POC Whole Blood Glucose [Pending] Height (Feet): 5 Height (Inches): 7.00 Weight (Pounds): 163 General Appearance: alert EENT: normal ENT inspection Neck: normal alignment Cardiovascular: regular rhythm Respiratory/Chest: lungs clear Abdomen: non tender, soft Extremities: no edema 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
--- NOTE | 2020-05-29 10:33 | NUR ---
NURSE NOTES: Scheduled hemodialysis with Sharla at [facility] for 05/30/20.
[2020-05-29 12:00] VITALS: BP 139/70
--- NOTE | 2020-05-29 15:17 | General Progress Note ---
Subjective ROS Limited/Unobtainable: No Constitutional: Reports: malaise, weakness HEENT: Reports: no symptoms Cardiovascular: Reports: no symptoms Respiratory: Reports: no symptoms Gastrointestinal/Abdominal: Reports: nausea Genitourinary: Reports: no symptoms Neurologic/Psychiatric: Reports: no symptoms Endocrine: Reports: no symptoms Hematologic/Lymphatic: Reports: anemia Allergies: Coded Allergies: ASPIRIN (Unverified Allergy, Unknown, 02/08/20) All Systems: reviewed and negative except above Subjective no new complaints. no vomiting but persistent nausea, not asking for zofran. no fever or chills. no sob. still c/o pain. Objective Last 24 Hour Vital Signs Date Time Temp Pulse Resp B/P (MAP) Pulse Ox O2 Delivery O2 Flow Rate FiO2 05/29/20 13:51 97.9 05/29/20 13:00 115/69 05/29/20 12:06 88 129/67 05/29/20 12:00 97.9 87 18 139/70 (93) 100 05/29/20 09:24 97.9 05/29/20 09:00 82 05/29/20 09:00 Room Air 05/29/20 08:59 88 129/67 05/29/20 08:57 129/67 05/29/20 08:56 129/67 05/29/20 08:00 89 05/29/20 08:00 97.9 88 16 129/67 (87) 100 05/29/20 05:16 98.5 05/29/20 04:00 98.5 92 18 112/55 (74) 100 05/29/20 04:00 85 05/29/20 01:35 98.4 05/29/20 00:00 97.5 88 16 147/82 (103) 95 05/29/20 00:00 88 05/28/20 21:03 98.4 05/28/20 21:00 Room Air 05/28/20 20:52 83 105/72 05/28/20 20:00 82 05/28/20 20:00 98.7 82 20 109/68 (82) 99 05/28/20 17:12 73 123/61 05/28/20 17:10 123/61 05/28/20 16:54 123/61 05/28/20 16:00 73 10/10/20 16:00 98.4 75 20 123/61 (81) 100 Intake and Output 05/28/20 05/29/20 19:00 07:00 Intake Total 480 ml Output Total 2000 ml 2000 ml Balance -2000 ml -1520 ml Intake Oral 480 ml Output Hemodialysis UF 2000 ml 2000 ml # Voids 2 Laboratory Tests 05/29/20 04:09: POC Whole Blood Glucose [Pending] 05/29/20 11:53: POC Whole Blood Glucose [Pending] Height (Feet): 5 Height (Inches): 7.00 Weight (Pounds): 163 Objective General Appearance: WD/WN, no apparent distress, alert EENT: normal ENT inspection Neck: non-tender, normal alignment, supple Cardiovascular: normal peripheral pulses, normal rate, regularly irregular Respiratory/Chest: chest wall non-tender, lungs clear, normal breath sounds, no respiratory distress, no accessory muscle use Abdomen: normal bowel sounds, non tender, soft, no organomegaly Edema: no edema noted Arm (L), no edema noted Arm (R) Neurologic: emt paramedic II-XII grossly normal, alert, oriented x 3, responsive Lymphatic: normal anterior cervical (L), normal anterior cervical (R) Assessment/Plan Problem List: (1) Uncontrolled hypertension ICD Codes: I10 - Essential (primary) hypertension SNOMED: 10319794, 72379637 (2) Type 1 diabetes ICD Codes: E10.9 - Type 1 diabetes mellitus without complications SNOMED: 47049379 (3) Malignant hypertension (arteriolar nephrosclerosis) ICD Codes: I12.9 - Hypertensive chronic kidney disease with stage 1 through stage 4 chronic kidney disease, or unspecified chronic kidney disease SNOMED: 46348312 (4) Gastroparesis diabeticorum ICD Codes: E11.43 - Type 2 diabetes mellitus with diabetic autonomic (poly)neuropathy; K31.84 - Gastroparesis SNOMED: 76808926, 708449566 (5) Abdominal pain ICD Codes: R10.9 - Unspecified abdominal pain SNOMED: 74299543 Status: stable Assessment/Plan: Continue current pain regimen Add oral pain meds Limits set We will discontinue IV pain Monitor for vomiting. IV Zofran atc. Continue Reglan Monitor BP and titrate BP meds as needed PPI treatment HD per renal Ben Ibarra MD May 29, 2020 15:17
[2020-05-29 16:00] VITALS: BP 134/72
--- NOTE | 2020-05-29 19:01 | General Progress Note ---
Subjective Allergies: Coded Allergies: ASPIRIN (Unverified Allergy, Unknown, 02/08/20) Subjective above noted calm appears comfortable Objective Last 24 Hour Vital Signs Date Time Temp Pulse Resp B/P (MAP) Pulse Ox O2 Delivery O2 Flow Rate FiO2 05/29/20 18:00 134/72 05/29/20 18:00 75 118/60 05/29/20 17:56 97.9 05/29/20 16:00 78 05/29/20 16:00 97.9 79 20 134/72 (92) 100 05/29/20 13:51 97.9 05/29/20 13:00 115/69 05/29/20 12:06 88 129/67 05/29/20 12:00 97.9 87 18 139/70 (93) 100 05/29/20 09:24 97.9 05/29/20 09:00 82 05/29/20 09:00 Room Air 05/29/20 08:59 88 129/67 05/29/20 08:57 129/67 05/29/20 08:56 129/67 05/29/20 08:00 89 05/29/20 08:00 97.9 88 16 129/67 (87) 100 05/29/20 05:16 98.5 05/29/20 04:00 98.5 92 18 112/55 (74) 100 05/29/20 04:00 85 05/29/20 01:35 98.4 05/29/20 00:00 97.5 88 16 147/82 (103) 95 05/29/20 00:00 88 05/28/20 21:03 98.4 05/28/20 21:00 Room Air 05/28/20 20:52 83 105/72 05/28/20 20:00 82 05/28/20 20:00 98.7 82 20 109/68 (82) 99 Intake and Output 05/28/20 05/29/20 19:00 07:00 Intake Total 480 ml Output Total 2000 ml 2000 ml Balance -2000 ml -1520 ml Intake Oral 480 ml Output Hemodialysis UF 2000 ml 2000 ml # Voids 2 Laboratory Tests 05/29/20 04:09: POC Whole Blood Glucose [Pending] 05/29/20 11:53: POC Whole Blood Glucose [Pending] 05/29/20 16:33: POC Whole Blood Glucose [Pending] Height (Feet): 5 Height (Inches): 7.00 Weight (Pounds): 163 Objective Thin man NCAT supple CTA RR abd soft ND, Diffuse TTP, but not when distracted no edema Assessment/Plan Status: stable Assessment/Plan: Assessment - recurrent N/V and abd pain - DM wiht presumed DM gastroparesis - ESRD / HD - DM - HTN - Gastritis Recommendations BID PPI Elevate HOB po as tolerated anti emetics taper off of pain meds Alexander Curry MD May 29, 2020 19:01
--- NOTE | 2020-05-29 19:06 | NUR ---
NURSE NOTES: Pt received from MARIELLA Fitzgerald. Pt is resting comfortably in bed and c/o pain 02/25; will implement pain interventions and administer medication as ordered. Pt is ambulatory and A/Ox4; Pt is fatigued. Pt is on cardiac monitoring SR and asymptomatic. Pt is breathing unlabored on RA and asymptomatic. Pt has STEFANIE shunt for dialysis on Saturday, and Saturday. Pt has LUpper Arm 20G SL patent with skin dry and intact. Bed is locked in lowest position with call light within reach. Will continue to monitor.
--- NOTE | 2020-05-29 19:40 | NUR ---
NURSE HAND-OFF REPORT: Important Events on Shift:Hemodialysis scheduled for tomorrow. Patient Status: Stable Diet: Renal Pending Orders: Hemodialysis with VIP 05/30/20. Pending Results/Labs:am labs. Pending MD notification:N/A Latest Vital Signs: Temperature 97.9 , Pulse 75 , B/P 118 /60 , Respiratory Rate 20 , O2 SAT 100 , Room Air, O2 Flow Rate . Vital Sign Comment: Stable EKG Rhythm: Sinus Rhythm Rhythm change?: N MD Notified?: - MD Response: Latest Durán Fall Score: 30 Fall Risk: Medium Risk Safety Measures: Call light Within Reach, Bed Alarm Zone 1, Side Rails Side Rails x2, Bed position Low and Locked. Fall Precautions: Yellow Socks Report given to Baudilio Chris RN.
[2020-05-29 20:00] VITALS: BP 129/72
[2020-05-30] VITALS: BP 130/79
[2020-05-30] MEDS: Morphine Sulfate 2mg/ml Inj(IV/IM USE ONLY) IVP PRN ×2 (01:31→05:06)
[2020-05-30] MEDS: DiphenhydrAMINE 50mg/ml Inj IVP PRN ×5 (01:31→18:21)
--- NOTE | 2020-05-30 02:59 | Cardiology Progress Note ---
Subjective DATE OF SERVICE: May 29, 2020 Less abdominal pain; transitioning to oral pain meds. Still with nausea, but no vomiting. No new bleeding episodes. BP parameters tenuous; dropped below 100 systolic this afternoon, otherwise high. 2D Echo: normal LVEF, Mild TR and pulm HTN (38mm Hg) Objective Last 24 Hour Vital Signs Date Time Temp Pulse Resp B/P (MAP) Pulse Ox O2 Delivery O2 Flow Rate FiO2 05/30/20 00:00 97.7 79 18 130/79 (96) 100 05/30/20 00:00 77 05/29/20 21:52 97.9 05/29/20 21:00 Room Air 05/29/20 20:17 58 109/68 05/29/20 20:00 79 05/29/20 20:00 97.5 75 18 129/72 (91) 99 05/29/20 18:00 134/72 05/29/20 18:00 75 118/60 05/29/20 17:56 97.9 05/29/20 16:00 78 05/29/20 16:00 97.9 79 20 134/72 (92) 100 05/29/20 13:51 97.9 05/29/20 13:00 115/69 05/29/20 12:06 88 129/67 05/29/20 12:00 97.9 87 18 139/70 (93) 100 05/29/20 09:24 97.9 05/29/20 09:00 82 05/29/20 09:00 Room Air 05/29/20 08:59 88 129/67 05/29/20 08:57 129/67 05/29/20 08:56 129/67 05/29/20 08:00 89 05/29/20 08:00 97.9 88 16 129/67 (87) 100 05/29/20 05:16 98.5 05/29/20 04:00 98.5 92 18 112/55 (74) 100 05/29/20 04:00 85 ROS: no change from my evaluation of 05/26/20. HEENT: normal ENT inspection RHYTHM: NSR, PACs LUNGS: lungs clear bilaterally CARDIAC: normal rate, regular rhythm, normal S1 and S2, gallop/S4 ABDOMEN: normal bowel sounds, non tender, soft, no organomegaly EXTREMITIES: No edema, other - AV fistula with bruit on right Laboratory Tests Test 05/29/20 04:09 05/29/20 11:53 05/29/20 16:33 POC Whole Blood Glucose Pending Pending Pending Assessment/Plan Assessment/Plan Nausea/vomiting Gastroparesis Hx gastritis with GI bleeding ESRD Hypertensive urgency - resolved Hypertension/HHD Pulmonary hypertension Ac/chronic diastolic CHF Possible component of "med-seeking" behaviour Monitor hemoglobin Titrate antiHTN regimen DC cardiac monitoring. HD with UF Antiemetics Agree with limits on IV pain meds Shamir Dunlap MD May 30, 2020 02:59
[2020-05-30 04:00] VITALS: BP 149/90
[2020-05-30] MEDS: NovoLOG Insulin Flexpen SUBQ SCH ×3 (06:51→16:30)
[2020-05-30] MEDS ORDERED: Morphine Sulfate 2mg/ml Inj(IV/IM USE ONLY) IVP PRN (07:30)
--- NOTE | 2020-05-30 07:32 | General Progress Note ---
Subjective ROS Limited/Unobtainable: No Constitutional: Reports: malaise, weakness HEENT: Reports: no symptoms Cardiovascular: Reports: no symptoms Respiratory: Reports: no symptoms Gastrointestinal/Abdominal: Reports: no symptoms Genitourinary: Reports: no symptoms Neurologic/Psychiatric: Reports: no symptoms Endocrine: Reports: no symptoms Hematologic/Lymphatic: Reports: no symptoms Allergies: Coded Allergies: ASPIRIN (Unverified Allergy, Unknown, 02/08/20) All Systems: reviewed and negative except above Subjective c/o generalized pain. BS 500 this am. had single juice last night but no other snacks. still requiring iv pain meds. no fever or chills. +nausea but no vomiting Objective Last 24 Hour Vital Signs Date Time Temp Pulse Resp B/P (MAP) Pulse Ox O2 Delivery O2 Flow Rate FiO2 05/30/20 05:36 98.1 05/30/20 04:00 98.1 85 18 149/90 (109) 98 05/30/20 04:00 87 05/30/20 02:01 97.7 05/30/20 00:00 97.7 79 18 130/79 (96) 100 05/30/20 00:00 77 05/29/20 21:52 97.9 05/29/20 21:00 Room Air 05/29/20 20:17 58 109/68 05/29/20 20:00 79 05/29/20 20:00 97.5 75 18 129/72 (91) 99 05/29/20 18:00 134/72 05/29/20 18:00 75 118/60 05/29/20 17:56 97.9 05/29/20 16:00 78 05/29/20 16:00 97.9 79 20 134/72 (92) 100 05/29/20 13:51 97.9 05/29/20 13:00 115/69 05/29/20 12:06 88 129/67 05/29/20 12:00 97.9 87 18 139/70 (93) 100 05/29/20 09:24 97.9 05/29/20 09:00 82 05/29/20 09:00 Room Air 05/29/20 08:59 88 129/67 05/29/20 08:57 129/67 05/29/20 08:56 129/67 05/29/20 08:00 89 05/29/20 08:00 97.9 88 16 129/67 (87) 100 Intake and Output 05/29/20 05/30/20 19:00 07:00 Intake Total 720 ml Balance 720 ml Intake Oral 720 ml # Voids 2 Laboratory Tests 05/29/20 11:53: POC Whole Blood Glucose [Pending] 05/29/20 16:33: POC Whole Blood Glucose [Pending] Height (Feet): 5 Height (Inches): 7.00 Weight (Pounds): 163 Objective General Appearance: WD/WN, no apparent distress, alert EENT: normal ENT inspection Neck: non-tender, normal alignment, supple Cardiovascular: normal peripheral pulses, normal rate, regularly irregular Respiratory/Chest: chest wall non-tender, lungs clear, normal breath sounds, no respiratory distress, no accessory muscle use Abdomen: normal bowel sounds, non tender, soft, no organomegaly Edema: no edema noted Arm (L), no edema noted Arm (R) Neurologic: pear picker II-XII grossly normal, alert, oriented x 3, responsive Lymphatic: normal anterior cervical (L), normal anterior cervical (R) Assessment/Plan Problem List: (1) Uncontrolled hypertension ICD Codes: I10 - Essential (primary) hypertension SNOMED: 83587345, 62519390 (2) Type 1 diabetes ICD Codes: E10.9 - Type 1 diabetes mellitus without complications SNOMED: 11481465 (3) Malignant hypertension (arteriolar nephrosclerosis) ICD Codes: I12.9 - Hypertensive chronic kidney disease with stage 1 through stage 4 chronic kidney disease, or unspecified chronic kidney disease SNOMED: 17102004 (4) Gastroparesis diabeticorum ICD Codes: E11.43 - Type 2 diabetes mellitus with diabetic autonomic (poly)neuropathy; K31.84 - Gastroparesis SNOMED: 40098853, 129522897 (5) Abdominal pain ICD Codes: R10.9 - Unspecified abdominal pain SNOMED: 13125972 Status: stable Assessment/Plan: Continue current pain regimen Add oral pain meds Limits set decrease IV pain rx Monitor for vomiting. IV Zofran atc. Continue Reglan Monitor BP and titrate BP meds as needed PPI treatment HD per renal resume levemir monitor for hypo/hyperglycemia Ben Ibarra MD May 30, 2020 07:32
[2020-05-30 08:00] VITALS: BP 139/90
--- NOTE | 2020-05-30 08:07 | Nephrology Progress Note ---
Assessment/Plan Problem List: (1) Gastroparesis diabeticorum (2) Malignant hypertension (arteriolar nephrosclerosis) (3) Abdominal pain (4) Uncontrolled hypertension (5) ESRD (end stage renal disease) (6) HIV (human immunodeficiency virus infection) (7) Nausea & vomiting (8) Type 1 diabetes Plan HD 05/28, 05/30 ppi, avoid opiates, GI evaluating bp improved with minoxidil, d/w dr fisher Subjective Constitutional: Reports: weakness HEENT: Reports: no symptoms Genitourinary: Reports: no symptoms Neurologic/Psychiatric: Reports: no symptoms Subjective less nausea emesis Objective Objective Last 24 Hour Vital Signs Date Time Temp Pulse Resp B/P (MAP) Pulse Ox O2 Delivery O2 Flow Rate FiO2 05/30/20 05:36 98.1 05/30/20 04:00 98.1 85 18 149/90 (109) 98 05/30/20 04:00 87 05/30/20 02:01 97.7 05/30/20 00:00 97.7 79 18 130/79 (96) 100 05/30/20 00:00 77 05/29/20 21:52 97.9 05/29/20 21:00 Room Air 05/29/20 20:17 58 109/68 05/29/20 20:00 79 05/29/20 20:00 97.5 75 18 129/72 (91) 99 05/29/20 18:00 134/72 05/29/20 18:00 75 118/60 05/29/20 17:56 97.9 05/29/20 16:00 78 05/29/20 16:00 97.9 79 20 134/72 (92) 100 05/29/20 13:51 97.9 05/29/20 13:00 115/69 05/29/20 12:06 88 129/67 05/29/20 12:00 97.9 87 18 139/70 (93) 100 05/29/20 09:24 97.9 05/29/20 09:00 82 05/29/20 09:00 Room Air 05/29/20 08:59 88 129/67 05/29/20 08:57 129/67 05/29/20 08:56 129/67 Intake and Output 05/29/20 05/30/20 19:00 07:00 Intake Total 720 ml Balance 720 ml Intake Oral 720 ml # Voids 2 Laboratory Tests 05/29/20 11:53: POC Whole Blood Glucose [Pending] 05/29/20 16:33: POC Whole Blood Glucose [Pending] Height (Feet): 5 Height (Inches): 7.00 Weight (Pounds): 163 General Appearance: no apparent distress, alert EENT: normal ENT inspection Neck: normal alignment Cardiovascular: regular rhythm Respiratory/Chest: lungs clear Abdomen: non tender, soft Extremities: no edema Neurologic: graphotype operator II-XII grossly normal Benito Maguire MD May 30, 2020 08:07
--- NOTE | 2020-05-30 08:10 | NUR ---
NURSE HAND-OFF REPORT: Important Events on Shift:Pt transferred to [facility] Patient Status: Stable Diet: Renal Diet Pending Orders: Hemodialysis Latest Vital Signs: Temperature 98.1 , Pulse 87 , B/P 149 /90 , Respiratory Rate 18 , O2 SAT 98 , Room Air, O2 Flow Rate . Vital Sign Comment: VSS EKG Rhythm: Sinus Rhythm Rhythm change?: N MD Notified?: - MD Response: Latest Durán Fall Score: 30 Fall Risk: Medium Risk Safety Measures: Call light Within Reach, Bed Alarm Zone 1, Side Rails Side Rails x2, Bed position Low and Locked. Fall Precautions: Yellow Socks Report given to MARIELLA Gerber.
--- NOTE | 2020-05-30 08:10 | NUR ---
NURSE NOTES: Received report from MARIELLA Astudillo. Patient transferred from [facility] in stable condition, AAOX4, able to make needs known. Patient is ambulatory but chooses to stay in bed and use urinal. belongings checked and signed with transferring RN. Skin is intact. Rn instructed patient to use call light before ambulating if felt weak or dizzy. patient is on room air, breathing is even and unlabored with no SOB noted at this time. Patient for Hemodialysis today, RN will contact [facility] dialysis nurse to confirm scheduled dialysis. Bed is locked and placed in lowest position. Call light within reach. Will continue to monitor
--- NOTE | 2020-05-30 08:49 | Cardiology Report ---
APPROVED REPORT EXAM: Two-dimensional and M-mode echocardiogram with Doppler and color Doppler. INDICATION Congestive Heart Failure M-Mode DIMENSIONS IVSd1.5 (0.7-1.1cm)Left Atrium (MM)3.2 (1.6-4.0cm) LVDd5.0 (3.5-5.6cm)Aortic Root3.5 (2.0-3.7cm) PWd1.7 (0.7-1.1cm)Aortic Cusp Exc.2.2 (1.5-2.0cm) IVSs2.2 cmEPSS0.4 (>1.0cm) LVDs3.0 (2.5-4.0cm) PWs2.3 cm <Conclusion> Normal left ventricular chamber size, systolic function and wall motion. Left ventricular ejection fraction estimated to be 65 %. Moderate left ventricular hypertrophy. No evidence of pericardial effusion. Left atrial size at upper limits of normal. Mild right atrial and right ventricular enlargement. Focal aortic valve sclerosis with adequate cusp excursion. Thickened mitral valve leaflets with normal excursion. Mild mitral annulus and aortic root calcification. Normal pulmonic valve structure. Normal tricuspid valve structure. IVC is normal in size with physiological collapse. A color flow and spectral Doppler study was performed and revealed: No aortic regurgitation. Trace mitral regurgitation. Mitral inflow velocities indicates possible pseudo normalization pattern implying significant left ventricular diastolic dysfunction (Grade II). Trace tricuspid regurgitation. Tricuspid systolic velocities suggests peak right ventricular systolic pressure of 38 mmHg, consistent with mild pulmonary hypertension. No pulmonic regurgitation present.
[2020-05-30] MEDS: Losartan 50mg tab ORAL SCH (09:00)
[2020-05-30] MEDS: Metoprolol Tartrate 50mg tab ORAL SCH (09:00)
[2020-05-30] MEDS: Minoxidil 10mg tab ORAL SCH ×3 (09:00→18:00)
[2020-05-30] MEDS: Levemir Flexpen SUBQ SCH ×3 (09:00→18:00)
[2020-05-30] MEDS: Pantoprazole Inj IVP SCH (09:03)
--- NOTE | 2020-05-30 09:16 | NUR ---
NURSE NOTES: Rn confirmed dialysis schedule with [facility]. Per [facility], hold BP medications
--- NOTE | 2020-05-30 09:34 | NUR ---
NURSE NOTES: RN spoke to pharmacy regarding levemir pen, pharmacy said theyll bring it up.
--- NOTE | 2020-05-30 09:55 | NUR ---
NURSE NOTES: Spoke to Dionisio from pharmacy and followed up on the levemir pen
[2020-05-30] MEDS ORDERED: Heparin Sod 1000 units/ml 10ml IV PRN (10:30)
--- NOTE | 2020-05-30 11:09 | NUR ---
NURSE NOTES: Previous nurse who transferred patient from [facility] to administered patient am insulin at 11:30 instead of 06:30. RN made charge nurse aware of patients high sugar level and was instructed to administer 11:30 insulin now under UNSCHEDULED
--- NOTE | 2020-05-30 11:33 | NUR ---
NURSE NOTES: Dr. Ibarra made aware that patients blood sugar was still at 590 after giving coverage of 10 units and patient initially denied any symptoms of hyperglycemia. RN then asked patient again after 10 minutes and patient complained of blurry vision, dizziness, increased thirst, and stomach pain. Dr. Ibarra gave Rn order of 12 units coverage and recheck sugar level after 2 hours
[2020-05-30] MEDS ORDERED: NovoLOG Insulin Flexpen SUBQ ONE ×2 (11:45→14:15)
[2020-05-30 12:00] VITALS: BP 140/81
--- NOTE | 2020-05-30 13:33 | NUR ---
NURSE NOTES: RN rechecked sugar level and was at 362. RN called Dr. Ibarra and made aware. DR. Ibarra ordered 10units coverage now and recheck blood sugar in 2 hours
--- NOTE | 2020-05-30 14:11 | NUR ---
CASE MANAGEMENT:REVIEW 05/30/20 SI: HYPERTENSIVE EMERGENCY C/O NAUSEA. ESRD ON HD 98.0 92 18 140/81 98% ON RA GLUCOSE+595 IS: NOVOLOG 10U SQ X1 LEVEMIR 8U SQ BID IV MORPHINE Q6HRS PRN REGLAN PO TID CLONIDINE PATCH QWEEK COZAAR PO QD MINOXIDIL PO TID IV PROTONIX Q12 PROCARDIA PO BID LOPRESSOR PO Q12 : MED/SURG STATUS 4 EAST DCP: FROM HOME
[2020-05-30 16:00] VITALS: BP 148/86
--- NOTE | 2020-05-30 16:20 | NUR ---
NURSE NOTES: Blood sugar was rechecked, result was 110. Dr. Ibarra made aware, no new orders. patient starting dialysis
[2020-05-30 18:00] VITALS: BP 120/65
--- NOTE | 2020-05-30 19:35 | NUR ---
NURSE HAND-OFF: Important Events on Shift: D/c after hemodialysis, Hyperglecemic events Patient Status: stable Diet: renal Pending Orders: n/a Pending Results/Labs:n/a Pending MD notification:n/a Latest Vital Signs: Temperature 97.8 , Pulse 86 , B/P 120 /65 , Respiratory Rate 18 , O2 SAT 98 , Room Air, O2 Flow Rate . Vital Sign Comment: stable Latest Durán Fall Score: 30 Fall Risk: Medium Risk Safety Measures: Call light Within Reach, Bed Alarm Zone 1, Side Rails Side Rails x2, Bed position Low and Locked. Fall Precautions: Yellow Socks Report given to MARIELLA Ortega.
--- NOTE | 2020-05-30 20:02 | NUR ---
NURSE NOTES: Patient discharged via wheelchair to Car service "[employer]". IV access discontinued, belongings accounted for. Patient sstable, no s/s of acute distress. Patient finished dialysis prior to discharge, 1L out per dialysis nurse. patient left unit with no incident.
--- NOTE | 2020-05-30 21:09 | Cardiology Progress Note ---
Subjective DATE OF SERVICE: May 30, 2020 Controlled abdominal pain; transitioned to oral pain meds. Occasional nausea, but no vomiting. No new bleeding episodes. BP parameters have stabilized. 2D Echo: normal LVEF, Mild TR and pulm HTN (38mm Hg) Objective Last 24 Hour Vital Signs Date Time Temp Pulse Resp B/P (MAP) Pulse Ox O2 Delivery O2 Flow Rate FiO2 05/30/20 18:00 120/65 05/30/20 18:00 86 120/65 05/30/20 16:00 97.8 86 18 148/86 (106) 98 05/30/20 12:18 140/81 05/30/20 12:00 98.0 92 18 140/81 (100) 98 05/30/20 09:00 139/90 05/30/20 09:00 139/90 05/30/20 09:00 90 139/90 05/30/20 09:00 90 139/90 05/30/20 09:00 Room Air 05/30/20 08:00 97.9 90 19 139/90 (106) 98 05/30/20 05:36 98.1 05/30/20 04:00 98.1 85 18 149/90 (109) 98 05/30/20 04:00 87 05/30/20 02:01 97.7 05/30/20 00:00 97.7 79 18 130/79 (96) 100 05/30/20 00:00 77 05/29/20 21:52 97.9 ROS: no change from my evaluation of 05/26/20. HEENT: normal ENT inspection RHYTHM: NSR, PACs LUNGS: lungs clear bilaterally CARDIAC: normal rate, regular rhythm, normal S1 and S2, gallop/S4 ABDOMEN: normal bowel sounds, non tender, soft, no organomegaly EXTREMITIES: No edema, other - AV fistula with bruit on right Assessment/Plan Assessment/Plan Nausea/vomiting contolled/resolved Gastroparesis Hx gastritis with GI bleeding ESRD Hypertensive urgency - resolved Hypertension/HHD Pulmonary hypertension Ac/chronic diastolic CHF Possible component of "med-seeking" behaviour Titrate antiHTN regimen further, if needed, as outpatient. HD with UF per usual schedule Antiemetics prn. Continue with limits on pain meds Shamir Dunlap MD May 30, 2020 21:09
--- NOTE | 2020-05-30 22:31 | General Progress Note ---
Subjective Allergies: Coded Allergies: ASPIRIN (Unverified Allergy, Unknown, 02/08/20) Subjective above noted calm appears comfortable for discharge today Objective Last 24 Hour Vital Signs Date Time Temp Pulse Resp B/P (MAP) Pulse Ox O2 Delivery O2 Flow Rate FiO2 05/30/20 18:00 120/65 05/30/20 18:00 86 120/65 05/30/20 16:00 97.8 86 18 148/86 (106) 98 05/30/20 12:18 140/81 05/30/20 12:00 98.0 92 18 140/81 (100) 98 05/30/20 09:00 139/90 05/30/20 09:00 139/90 05/30/20 09:00 90 139/90 05/30/20 09:00 90 139/90 05/30/20 09:00 Room Air 05/30/20 08:00 97.9 90 19 139/90 (106) 98 05/30/20 05:36 98.1 05/30/20 04:00 98.1 85 18 149/90 (109) 98 05/30/20 04:00 87 05/30/20 02:01 97.7 05/30/20 00:00 97.7 79 18 130/79 (96) 100 05/30/20 00:00 77 Intake and Output 05/29/20 05/30/20 19:00 07:00 Intake Total 720 ml Balance 720 ml Intake Oral 720 ml # Voids 2 Height (Feet): 5 Height (Inches): 7.00 Weight (Pounds): 163 Objective Thin man NCAT supple CTA RR abd soft ND, Diffuse TTP, but not when distracted no edema Assessment/Plan Status: stable Assessment/Plan: Assessment - recurrent N/V and abd pain - DM wiht presumed DM gastroparesis - ESRD / HD - DM - HTN - Gastritis Recommendations BID PPI Elevate HOB po as tolerated anti emetics taper off of pain Alexander Torres MD May 30, 2020 22:31
--- NOTE | 2020-05-31 01:15 | Discharge Summary ---
DATE OF ADMISSION: 05/26/2020 DATE OF DISCHARGE: 05/30/2020 ADMISSION DIAGNOSES: 1. Intractable nausea and vomiting. 2. Hypertensive emergency. 3. Abdominal pain. 4. End-stage renal disease. 5. Diabetes. DISCHARGE DIAGNOSES: 1. Intractable nausea and vomiting. 2. Hypertensive emergency. 3. Abdominal pain. 4. End-stage renal disease. 5. Diabetes. HOSPITAL COURSE: Mr. Wilson is a 29-year-old male with a history of end-stage renal disease with complaints of hypertensive emergency. He has had some nausea and vomiting with bleed. He was unable to tolerate his blood pressure medications. He was admitted. He was resumed back on IV and oral pain medications. He received antiemetics. He was resumed on Reglan. Antihypertensive regimen was adjusted. He was continued on hemodialysis. Cardiology, Renal, and GI consultations were obtained. On discharge, the patient was stable. He was tolerating p.o. He will be discharged home. It was recommended he avoid taking any opiates as it may worsen his gastroparesis. DISCHARGE MEDICATIONS: Please see discharge medication list for discharge medications. DIET: Renal and cardiac diabetic diet. ACTIVITY: Ad chris. Ben Ibarra M.D. DR: Ignacia JOB#: [id number] CC:
[2020-05-31] MEDS ORDERED: Heparin Sod 1000 units/ml 10ml IV PRN (08:15)
== END 2020-05-30 19:52 | disposition home or self-care (01) | DRG 73 ==
LOC: EDBD 10:06 → EMR 10:50 → 2E 10:53 → EDBEDREQ 13:16 → 4E 05-30 08:34
DX: E11.43 Type 2 diabetes mellitus with diabetic autonomic (poly)neuropathy (principal); N18.6 End stage renal disease; I50.33 Acute on chronic diastolic (congestive) heart failure; I16.1 Hypertensive emergency; I12.0 Hypertensive chronic kidney disease with stage 5 chronic kidney disease or end stage renal disease; E11.65 Type 2 diabetes mellitus with hyperglycemia; E11.22 Type 2 diabetes mellitus with diabetic chronic kidney disease; E11.311 Type 2 diabetes mellitus with unspecified diabetic retinopathy with macular edema; K31.84 Gastroparesis; K29.70 Gastritis, unspecified, without bleeding; Z88.6 Allergy status to analgesic agent; Z79.4 Long term (current) use of insulin; E11.319 Type 2 diabetes mellitus with unspecified diabetic retinopathy without macular edema
CPT/HCPCS: 36415; 71045; 80048; 80053; 82010; 82962; 83036; 83605; 83690; 84100; 84484; 85025; 85610; 85730; 86706; 87040; 87081; 93005; 93306; 96365; 96368; 96375; 96376; 99291; J1815; J2405; S5561; U0002

== ENCOUNTER 2020-06-06 18:50 | Inpatient (IN) | payer MEDICARE, OTHER ==
[~2020-06-06] VITALS: Ht 172.7 cm; Wt 62.0 kg
[~2020-06-06 18:50] MED LIST changes: +INSULIN AS100 UNIT/3 SQ; +LABETALOL HCL300 MG ORAL; +PREZCOBIX 8001 EACH PO; +RENA-VITE RX T1 EAC1 PO; +ZOFRAN ODT8 MG ORAL
--- NOTE | 2020-06-06 18:56 | Emergency Room Report ---
History of Present Illness Present Illness HPI 29-year-old male with history of end-stage renal disease on dialysis Saturday and occasionally on Saturday for "his extra day" here with chest pain. Patient says that his chest pain started today. He underwent dialysis for 2 hours today successfully. Patient said that he was vomiting earlier today and began to have severe chest pain. Has never had this before. Denies fevers, chills, palpitations, back pain, abdominal pain, nausea vomiting, diarrhea. Pain is sharp in nature, located in the substernal region. Has not take a nything for the pain today. Allergies: Coded Allergies: ASPIRIN (Unverified Allergy, Unknown, 02/08/20) COVID-19 Screening Contact w/high risk pt: No Recent Travel to affected area: No Experienced COVID-19 symptoms?: No Nursing Documentation-H Hx Cardiac Problems: No - HIV positive Hx Hypertension: Yes Hx Diabetes: Yes Hx Cancer: No Hx Gastrointestinal Problems: No Hx Dialysis: Yes - , , Sat Hx Neurological Problems: No Medical Decision Making Diagnostic Impression: Primary Impression: Hypertensive urgency Additional Impressions: Uncontrolled hypertension Hyperglycemia ER Course Laboratory Tests Test 06/06/20 19:22 White Blood Count 4.2 K/UL (4.8-10.8) L Red Blood Count 3.59 M/UL (4.70-6.10) L Hemoglobin 11.7 G/DL (14.2-18.0) L Hematocrit 35.9 % (42.0-52.0) L Mean Corpuscular Volume 100 FL (80-99) H Mean Corpuscular Hemoglobin 32.5 PG (27.0-31.0) H Mean Corpuscular Hemoglobin Concent 32.5 G/DL (32.0-36.0) Red Cell Distribution Width 14.1 % (11.6-14.8) Platelet Count 198 K/UL (150-450) Mean Platelet Volume 6.3 FL (6.5-10.1) L Neutrophils (%) (Auto) 65.6 % (45.0-75.0) Lymphocytes (%) (Auto) 24.1 % (20.0-45.0) Monocytes (%) (Auto) 6.3 % (1.0-10.0) Eosinophils (%) (Auto) 1.5 % (0.0-3.0) Basophils (%) (Auto) 2.5 % (0.0-2.0) H Sodium Level 129 MMOL/L (136-145) L Potassium Level 5.3 MMOL/L (3.5-5.1) H Chloride Level 94 MMOL/L (98-107) L Carbon Dioxide Level 30 MMOL/L (21-32) Anion Gap 5 mmol/L (5-15) Blood Urea Nitrogen 26 mg/dL (7-18) H Creatinine 7.2 MG/DL (0.55-1.30) H Estimated Glomerular Filtration Rate 11.2 mL/min (>60) Glucose Level 424 MG/DL (74-106) H Calcium Level 8.9 MG/DL (8.5-10.1) Total Bilirubin 0.4 MG/DL (0.2-1.0) Aspartate Amino Transferase (AST) 78 U/L (15-37) H Alanine Aminotransferase (ALT) 46 U/L (12-78) Alkaline Phosphatase 129 U/L (46-116) H Troponin I 0.019 ng/mL (0.000-0.056) Total Protein 8.4 G/DL (6.4-8.2) H Albumin 3.9 G/DL (3.4-5.0) Globulin 4.5 g/dL Albumin/Globulin Ratio 0.9 (1.0-2.7) L Lipase 138 U/L (73-393) Serum Alcohol < 3 mg/dL Chest x-ray: No infiltrate/effusion. Mediastinum within normal limits 29-year-old male with end-stage renal disease on dialysis Saturday and occasionally on Saturday, here with hypertension hyperglycemia. Patient was hyperglycemic at 430 on arrival to the emergency department. He was given 10 units of insulin IV. Patient is noncompliant with his insulin at home. He was also hypertensive on arrival with initial blood pressure of 235/140. He was given multiple doses of IV antihypertensive medication with eventual resol ution of his hypertension. He is complaining of abdominal pain, but CBC, CMP, lipase all unremarkable. Alcohol negative. EKG showed normal sinus rhythm with questionably peaked T waves in V2 and V3, however patient's potassium was 5.3. No indication for potassium lowering medication at this time. Patient admitted to telemetry. EKG: NSR, no ischemia, intervals WNL. No ectopy. Mildly peaked T waves in V2 and V3 Rhythm strip: patient monitored for arrhythmias - no malignant dysrhythmias, runs of PVCs, nor pauses noted Immanuel Bell M.D. Jun 06, 2020 18:56
[2020-06-06 19:00] VITALS: BP 218/135
[2020-06-06] MEDS ORDERED: Labetalol 5mg/ml 20ml vial IV ONE ×2 (19:00→19:45)
[2020-06-06] MEDS ORDERED: Insulin Human Regular 100units/ml 3ml IV ONE (19:00)
--- NOTE | 2020-06-06 19:00 | NUR ---
ED Nurse Note: brought in by lafd from home c/o chest pain accompanied by nvd onset today. pt is dm type 1. per ems, bs on scene was 442. pt presents with elevated bp but otherwise vss, nad, aaox4, on threat monitoring analyst, ermd at bedside.
[2020-06-06] MEDS ORDERED: Morphine Sulfate 4mg/ml Inj (IV USE ONLY) IVP ONE ×2 (19:30→21:45)
[2020-06-06 19:41] LABS: BASOPHILS % (AUTO) 2.5 % (0.0-2.0); EOSINOPHILS % (AUTO) 1.5 % (0.0-3.0); HEMATOCRIT 35.9 % (42.0-52.0); HEMOGLOBIN 11.7 G/DL (14.2-18.0); LYMPHOCYTES % (AUTO) 24.1 % (20.0-45.0); MEAN CORPUSCULAR VOLUME 100 FL (80-99); MONOCYTES % (AUTO) 6.3 % (1.0-10.0); NEUTROPHILS % (AUTO) 65.6 % (45.0-75.0); PLATELET COUNT 198 K/UL (150-450); RED BLOOD COUNT 3.59 M/UL (4.70-6.10); RED CELL DISTRIBUTION WIDTH 14.1 % (11.6-14.8); WHITE BLOOD COUNT 4.2 K/UL (4.8-10.8)
--- NOTE | 2020-06-06 19:45 | NUR ---
ED Nurse Note: PER ermd, hold second dose of labetalol.
[2020-06-06 19:48] LABS: ANION GAP 5 mmol/L (5-15); BLOOD UREA NITROGEN 26 mg/dL (7-18); CALCIUM 8.9 MG/DL (8.5-10.1); CARBON DIOXIDE 30 MMOL/L (21-32); CHLORIDE 94 MMOL/L (98-107); CREATININE 7.2 MG/DL (0.55-1.30); POTASSIUM 5.3 MMOL/L (3.5-5.1); SODIUM 129 MMOL/L (136-145)
[2020-06-06 19:52] LABS: ALANINE AMINOTRANSFERASE 46 U/L (12-78); ALBUMIN 3.9 G/DL (3.4-5.0); ALBUMIN/GLOBULIN RATIO 0.9 (1.0-2.7); ALKALINE PHOSPHATASE 129 U/L (46-116); ASPARTATE AMINO TRANSFERASE 78 U/L (15-37); BILIRUBIN,TOTAL 0.4 MG/DL (0.2-1.0)
[2020-06-06 20:00] VITALS: BP 217/125
--- NOTE | 2020-06-06 20:00 | NUR ---
ED Nurse Note: unable to obtain urine at this time. will attempt at a later time
[2020-06-06] MEDS ORDERED: DiphenhydrAMINE 50mg/ml Inj IVP ONE (20:45)
[2020-06-06 22:36] VITALS: BP 159/94
--- NOTE | 2020-06-06 22:42 | NUR ---
ED Nurse Note: gave report to Rc WOLFF
--- NOTE | 2020-06-06 22:50 | NUR ---
TRANSFER TO FLOOR: Patient transferred to [facility] via gurney in stable condition as ordered, per dr. Ibarra. Report given to Matthew WOLFF. Belongings sent with patient
[2020-06-06 23:14] VITALS: BP 206/122
--- NOTE | 2020-06-06 23:20 | NUR ---
NURSE NOTES: Latest Vs upon arrival at unit: BP: 206/122; HR: 86; RR: 18; T: 97.9; SpO2: 98%. Admission orders noted and will carry out. Will administer stat medications per MD. Will continue to monitor.
[2020-06-06] MEDS: DiphenhydrAMINE 50mg/ml Inj IVP PRN (23:23)
[2020-06-06] MEDS: Metoprolol Tartrate 50mg tab ORAL SCH (23:23)
[2020-06-06] MEDS: Morphine Sulfate 2mg/ml Inj(IV/IM USE ONLY) IVP PRN (23:24)
--- NOTE | 2020-06-06 23:37 | NUR ---
NURSE NOTES: Received patient from MARIELLA Garcia. Patient transferred via gurney with 2 ED personnel. AAOx4, able to verbalize needs. On room air, saturating well. Breathing unlabored and even. Skin assessment done; skin is intact with noted STEFANIE av shunt for HD. Patient verbalized having dialysis today on his "extra day", where they took out 1.5L. Complaining of 9/10 pain, nonradiating, and unrelieved by rest. And generalized itching. Primary MD has put in orders. Will note and carry out. Bed in lowest position, brakes engaged and bed alarm on. Bed rails raised x2. Call light placed within reach. Will continue to monitor.
[2020-06-07] VITALS: BP 183/111
--- NOTE | 2020-06-07 00:26 | NUR ---
NURSE NOTES: Called and left a message with MD power generation equipment repairer regarding patient's current blood pressure. Latest BP: 183/111. No complaints of headache or double vision. Addendum: 06/07/20 at 0027 by Rc Mcqueen RN HR: 88 per secured entrance monitor. Will continue to monitor.
[2020-06-07] MEDS ORDERED: HydrALAZINE 50mg tab ORAL PRN (00:45)
--- NOTE | 2020-06-07 02:37 | NUR ---
NURSE NOTES: Pt's latest BP: 159/80; HR: 91. Called pipeline regarding re-timing patient's clonidine patch for 09:00am. Checked and noted that patch isn't available in the facility. Will let AM nurse know.
--- NOTE | 2020-06-07 03:30 | Consultation ---
DATE OF CONSULTATION: 06/06/2020 CARDIOLOGY CONSULTATION CONSULTING PHYSICIAN: Shamir Dunlap MD. REQUESTING PHYSICIAN: Ben Ibarra MD. REASON FOR CONSULTATION: Hypertensive urgency and chest pain. HISTORY OF PRESENT ILLNESS: This is a 29-year-old male with end-stage renal disease and history of malignant hypertension. He is on hemodialysis 3 times a week and on occasion a fourth time a week. This is performed as well based on his symptoms. His last dialysis was actually 2 days ago and his next 1 is scheduled for tomorrow. He did have an extra dialysis session today, but subsequently came to this emergency room with chest pain. The patient notes episodes of vomiting earlier that occurred prior to his chest pain episode. He denied any bloody emesis or back pain. He denied fevers or chills. The patient's pain was described as sharp and unprovoked. Upon arrival in the emergency room, he was noted to have a blood pressure of 235/140. He was given multiple doses of IV antihypertensives with slow, but significant improvement in his blood pressure parameters. His EKG revealed sinus rhythm with slight peaking of the T-waves in leads V2 and V3. His potassium level was 5.3 and all other laboratory studies were unremarkable including a troponin level of 0.019. I have been asked to assist with further cardiovascular care. PAST MEDICAL HISTORY: 1. HIV AIDS. 2. End-stage renal disease. 3. Right upper extremity AV fistula. 4. Hypertensive heart disease with history of malignant hypertension. 5. Insulin-requiring diabetes mellitus. 6. Diabetic gastroparesis and neuropathy. 7. Dyslipidemia. 8. History of gastritis and gastrointestinal bleeding. ALLERGIES: Include aspirin. MEDICATIONS: Reviewed and reconciled. FAMILY HISTORY: Noncontributory. SOCIAL HISTORY: Negative for smoking, alcohol, or substance abuse. REVIEW OF SYSTEMS: He was last hospitalized here 10 days ago with congestive heart failure. Approximately 2 months ago, he was hospitalized here with abdominal pain and was noted to have mild gastritis on an EGD. Two months prior, he was admitted here with malignant hypertension and treated accordingly. Prior hospitalizations have included an echocardiogram that revealed normal ejection fraction, concentric hypertrophy, and no pericardial effusion or significant valvular disease. The patient has not had any known exposures to COVID-19 or any symptoms to suggest so at this time. PHYSICAL EXAMINATION: VITAL SIGNS: Blood pressure is still elevated at 206/122, heart rate 86, respiratory rate 20. LUNGS: Clear. Jugular venous pressure is slightly elevated. CARDIAC: Regular rhythm rate. Normal S1, S2 with a fourth heart sound. Palpable bruit over right upper extremity AV fistula. Fundi poorly visualized. ABDOMEN: Nontender with no bruits. EXTREMITIES: Reveal trace edema. IMPRESSION: 1. Hypertensive urgency. 2. Acute myocardial ischemia precipitated by above. 3. End-stage renal disease. 4. Mild hyperkalemia. 5. Insulin-requiring diabetes mellitus. 6. HIV AIDS. 7. Acute on chronic diastolic congestive heart failure. PLAN: 1. Cardiac monitoring. 2. Stepwise titration of antihypertensives with as needed dosing for blood pressure elevations. 3. Hemodialysis with ultrafiltration. 4. Monitor potassium levels. 5. Check urine toxicology screen. Shamir Dunlap M.D. DR: DAVID JOB#: [id number] CC:
[2020-06-07] MEDS: Morphine Sulfate 2mg/ml Inj(IV/IM USE ONLY) IVP PRN ×2 (03:36→07:43)
[2020-06-07] MEDS: DiphenhydrAMINE 50mg/ml Inj IVP PRN ×5 (03:37→20:06)
[2020-06-07 04:00] VITALS: BP 156/102
[2020-06-07] MEDS: NovoLOG Insulin Flexpen SUBQ SCH ×4 (06:33→21:13)
--- NOTE | 2020-06-07 06:45 | NUR ---
NURSE NOTES: Latest BP was 176/102. Patient refused PRN hydralazine medication, stating, "my blood pressure is okay." Dr. Stacey dominguez.
--- NOTE | 2020-06-07 07:27 | NUR ---
NURSE HAND-OFF REPORT: Important Events on Shift:[New admit. Still with hypertension; SBP >170. Patient refused second PRN hydralazine for sbp >160. Dr. Ibarra aware.] Patient Status: [FC] Diet: [Renal diet] Pending Orders: [na] Pending Results/Labs:[acetone urine -- to collect urine sample] Pending MD notification:[na] Latest Vital Signs: Temperature 97.5 , Pulse 89 , B/P 156 /102 , Respiratory Rate 19 , O2 SAT 99 , Room Air, O2 Flow Rate . Vital Sign Comment: [with PRN hydralazine for sbp >160. Refused second PRN hydralazine] EKG Rhythm: Sinus Rhythm Rhythm change?: N MD Notified?: - MD Response: Latest Durán Fall Score: 35 Fall Risk: Medium Risk Safety Measures: Call light Within Reach, Bed Alarm Zone 1, Side Rails Side Rails x2, Bed position Low and Locked. Fall Precautions: Yellow Socks Yellow Gown Door Sign Patient Fall Education Report given to [MARIELLA Perez].
[2020-06-07] MEDS: HydrALAZINE 50mg tab ORAL PRN ×2 (07:49→13:34)
[2020-06-07 08:00] VITALS: BP 166/96
--- NOTE | 2020-06-07 08:02 | NUR ---
NURSE NOTES: Received report from Rc WOLFF. Pt is stable on RA and sitting up eationg breakfast in bed. Pt complaining of chest and stomach pain, requesting pain medication after breakfast. At this time BP is 222/115, Hydralazine to be given at this time. Pt IV LFA 20g SL, asymptomatic and intact. Bed low and locked,c all light in reach and bed alarm on. Pt verbalized understanding to call for help.
[2020-06-07] MEDS: Metoprolol Tartrate 50mg tab ORAL SCH ×2 (08:45→21:10)
[2020-06-07] MEDS: Heparin 5000 units/ml inj SUBQ SCH ×2 (08:47→21:12)
[2020-06-07] MEDS: Losartan 50mg tab ORAL SCH (08:48)
--- NOTE | 2020-06-07 08:59 | NUR ---
NURSE NOTES: Dr Ibarra notified of Pt refusal of medications, desire for increase of pain medication and add ensure to meals. awaiting xcall back
--- NOTE | 2020-06-07 10:00 | History and Physical Report ---
DATE OF ADMISSION: 06/06/2020 CHIEF COMPLAINT: Abdominal pain, nausea, vomiting, hypertensive emergency. HISTORY OF PRESENT ILLNESS: The patient is a 29-year-old male well known to me. He has a history of end-stage renal disease, hypertension, diabetes, HIV. He presented with complaints of two days of intractable abdominal pain, nausea, and vomiting. The patient has had similar presentations in the past. According to the patient, because of his nausea and vomiting, he was unable to take any of his oral blood pressure medications. On evaluation in the emergency room, the patient required IV blood pressure medications for blood pressure control. His pressure was as high as 224/142. He received IV pain medication and is now admitted for further evaluation and care. He denies any fevers or chills. He has had no cough. Denies any chest pain. PAST MEDICAL HISTORY: As above. PAST SURGICAL HISTORY: Includes right upper extremity AV fistula. CURRENT MEDICATIONS: Reconciled and reviewed. ALLERGIES: Include aspirin. FAMILY HISTORY: Noncontributory. SOCIAL HISTORY: There is no known history of tobacco, ethanol, or drugs. REVIEW OF SYSTEMS: GENERAL: No fevers or chills. HEENT: No headaches or visual changes. CARDIOPULMONARY: No chest pain. No shortness of breath. GASTROINTESTINAL: Positive nausea and vomiting, mild diarrhea. GENITOURINARY: No urgency or frequency. MUSCULOSKELETAL: No joint pain or swelling. NEUROLOGIC: No evidence of seizures. PHYSICAL EXAMINATION: VITAL SIGNS: Temperature was 97.4, pulse 90, respirations 18, and blood pressure 124/42. GENERAL: The patient is well-developed, no apparent distress. HEART: Regular rate and rhythm. LUNGS: Clear. ABDOMEN: Soft, nontender, nondistended. EXTREMITIES: Without clubbing, cyanosis, or edema. LABORATORY AND DIAGNOSTIC DATA: White count 4, hemoglobin 11, hematocrit 35, platelets of 198. Sodium 129, potassium 5.3, glucose 424. Tox screen for alcohol was negative. ASSESSMENT: This is a 29-year-old male with history of end-stage renal disease, hypertension, diabetes, now complains of hypertensive emergency secondary to inability to take his blood pressure medications due to nausea and vomiting. PLAN: Titrate antihypertensive regimen, antiemetics and pain medications as needed. Consider starting tricyclic antidepressant for cyclic vomiting. The patient has already had extensive GI workup. If symptoms do not improve, we will ask GI to re-evaluate the patient. Cardiology and Renal consultations have been obtained. Ben Ibarra M.D. DR: Jerson JOB#: [id number] CC:
[2020-06-07] MEDS: Morphine Sulfate 4mg/ml Inj (IV USE ONLY) IVP PRN ×3 (11:44→20:06)
[2020-06-07 12:00] VITALS: BP 146/89
--- NOTE | 2020-06-07 12:07 | Cardiology Report ---
APPROVED REPORT EKG Measurement Heart [id number] FL [id number] <Conclusion> Normal sinus rhythm Nonspecific ST and T wave abnormality Abnormal ECG
--- NOTE | 2020-06-07 12:30 | NUR ---
NURSE NOTES: Dr Maguire during rounds said "ok with me" to add ensure to pts diet. Order acknowledged and carried out.
[2020-06-07] MEDS ORDERED: Heparin Sod 1000 units/ml 10ml IV PRN (13:01)
--- NOTE | 2020-06-07 13:28 | Diagnostic Imaging Report ---
Indication: Reason For Exam: CP Technique: Single AP view of the chest. Comparison: Chest radiograph dated 05/26/2020 Findings: The cardiomediastinal silhouette is within normal limits. There is no focal consolidation, pneumothorax or pleural effusion. Osseous structures demonstrate no acute abnormality. IMPRESSION: No radiographic evidence of acute cardiopulmonary process.
--- NOTE | 2020-06-07 13:30 | NUR ---
NURSE NOTES: Dialysis with Young RN. BP was 225/100 at this time. Hydralazine given.
[2020-06-07] MEDS: Imipramine 10mg tab ORAL SCH (13:33)
--- NOTE | 2020-06-07 13:35 | NUR ---
CASE MANAGEMENT:REVIEW 29 YR OLD MALE BIBA FROM HOME CC: CHEST PAIN,NAUSEA AND VOMITING. GLUCOSE+442 AT SCENE PMH: ESRD/HD SI: HYPERTENSIVE URGENCY. HYPERGLYCEMIA 97.4 96 18 224/142 98% ON RA H/H-11.7/35.9 NA-129 K+5.3 BUN+26 CR+7.2 GLUCOSE+424 IS: IV LABETALOL X2 IV INSULIN IV MORPHINE X2 IV BENADRYL CHEST XRAY : TO TELEMETRY DCP: FROM HOME
[2020-06-07 16:00] VITALS: BP 154/61
--- NOTE | 2020-06-07 16:00 | Consultation ---
DATE OF CONSULTATION: 06/07/2020 NEPHROLOGY CONSULTATION CONSULTING PHYSICIAN: Benito Maguire MD REASON FOR CONSULTATION: End-stage renal disease, recurrent nausea, vomiting, abdominal pain, hypertensive urgency. HISTORY OF PRESENT ILLNESS: The patient is a 29-year-old man with end-stage renal disease due to insulin-dependent diabetes and history of severe hypertension. He has been hospitalized multiple times in the past few months with recurrent nausea and vomiting. He said he developed worsening epigastric pain radiating into the chest associated with nausea and vomiting. He states his sugars have been in the range of 180 at home recently. He is unable to hold down his blood pressure medicines. His blood pressure was markedly elevated in the emergency room as high as 224/142. ALLERGIES: Aspirin. HOME MEDICATIONS: Include clonidine patches, darunavir-cobicistat, Tivicay, hydralazine, [place], insulin combination of aspirate and glargine, labetalol, losartan, metoclopramide, metoprolol, nifedipine, omeprazole, vitamin B complex, Protonix. It is not clear that he is actually taking all of these medicines at home and misses medicines when he has episodes of vomiting. PAST SURGERIES: Dialysis AV fistula, biopsy of a lesion on the back that was benign. SYSTEM REVIEW: HEAD, EYES, EARS, NOSE, AND THROAT: Vision and hearing is good. ENDOCRINE: Diabetes as above. Recent hyperglycemia on prior admissions. PULMONARY: No asthma or TB. CARDIAC: He has had atypical chest pains associated with the above problems. No SC. He has had difficult to control hypertension. GASTROINTESTINAL: See history of present illness. GENITOURINARY: No dysuria or hematuria. NEUROLOGIC: No CVA or seizures. PHYSICAL EXAMINATION: GENERAL: The patient is alert, thin man chronically ill-appearing. VITAL SIGNS: Temperature 97.5, pulse 86, blood pressure 166/96. HEAD, EYES, EARS, NOSE, AND THROAT: Sclerae are nonicteric. Ocular motions intact in all directions. Mucosa moist. NECK: No adenopathy. LUNGS: Clear. HEART: Regular rhythm with a 2/6 systolic ejection murmur. ABDOMEN: Soft. I am unable to feel liver or spleen. There is no focal tenderness. EXTREMITIES: No edema. No cyanosis or clubbing. He has an AV fistula in the right arm. NEUROLOGIC: He is alert and oriented. Cranial nerves are intact. PERTINENT LABORATORY DATA: Sodium 129, potassium 5.3, BUN 26, creatinine 7.2, glucose 424. Albumin 3.9. IMPRESSION: 1. End-stage renal disease. 2. Hypertensive urgency related to unable to tolerate oral medications. 3. Insulin-dependent diabetes with likely diabetic neuropathy. 4. Gastritis. 5. Recurrent nausea and vomiting. 6. HIV positive. PLAN: Continue aggressive dialysis uremic component of his nausea and vomiting. We will try to get him back on oral regimen of blood pressure medicines and simplify the regimen as able. Benito Maguire M.D. DR: BROCK JOB#: [id number] CC:
--- NOTE | 2020-06-07 19:20 | NUR ---
NURSE NOTES: Received report from MARIELLA Perez. Pt in bed awake, alert/oriented x4, able to make needs known. No resp distress noted. lunchroom monitor in place. C/O of N/V. Bed in low position & locked, side rails up x2. Call light with in reach. Continue plan of Care.
--- NOTE | 2020-06-07 19:20 | NUR ---
NURSE HAND-OFF REPORT: Important Events on Shift: dialysis remove 3L, pain medication increased to 3mg for one day only Patient Status: fc, stable Diet: renal diet Pending Orders: Pending Results/Labs: Pending MD notification: Latest Vital Signs: Temperature 97.9 , Pulse 87 , B/P 183 /93 , Respiratory Rate 20 , O2 SAT 100 , Room Air, O2 Flow Rate . Vital Sign Comment: EKG Rhythm: Sinus Rhythm Rhythm change?: N MD Notified?: - MD Response: Latest Durán Fall Score: 35 Fall Risk: Medium Risk Safety Measures: Call light Within Reach, Bed Alarm Zone 2, Side Rails Side Rails x2, Bed position Low and Locked. Fall Precautions: Yellow Socks Yellow Gown Door Sign Patient Fall Education Report given to Hedy WOLFF.
[2020-06-07 21:00] VITALS: BP 161/100
--- NOTE | 2020-06-07 22:57 | Cardiology Progress Note ---
Subjective DATE OF SERVICE: Jun 07, 2020 Remains with nausea and vomiting. Refusing oral meds at times S/P hemodialysis today BP parameters remain significantly elevated Objective Last 24 Hour Vital Signs Date Time Temp Pulse Resp B/P (MAP) Pulse Ox O2 Delivery O2 Flow Rate FiO2 06/07/20 21:10 88 157/100 06/07/20 18:18 87 183/93 06/07/20 16:09 97.9 06/07/20 16:00 97.9 78 20 154/61 (92) 100 06/07/20 16:00 79 06/07/20 13:34 252/111 06/07/20 12:10 97.9 06/07/20 12:00 97.9 87 20 146/89 (108) 100 06/07/20 12:00 87 06/07/20 09:00 Room Air 06/07/20 08:48 86 166/96 06/07/20 08:48 166/96 06/07/20 08:46 166/96 06/07/20 08:45 86 166/96 06/07/20 08:10 97.5 06/07/20 08:00 90 06/07/20 08:00 97.5 86 20 166/96 (119) 99 06/07/20 07:49 222/115 06/07/20 04:06 97.5 06/07/20 04:00 89 06/07/20 04:00 97.2 84 19 156/102 (120) 99 06/07/20 00:45 183/111 06/07/20 00:10 Room Air 06/07/20 00:00 97.5 88 19 183/111 (135) 98 06/07/20 00:00 91 06/06/20 23:54 97.9 06/06/20 23:23 86 206/122 06/06/20 23:23 86 206/122 06/06/20 23:19 87 06/06/20 23:14 97.9 86 18 206/122 (150) 98 06/06/20 22:50 97.8 89 18 159/94 98 Room Air 99 ROS: unchanged from my evaluation of 06/06/20 HEENT: normal ENT inspection RHYTHM: NSR, ST LUNGS: lungs clear bilaterally CARDIAC: normal rate, regular rhythm, normal S1 and S2, gallop/S4 ABDOMEN: normal bowel sounds, non tender, soft, no organomegaly EXTREMITIES: normal range of motion, non-tender, No edema, other - AV fistula with bruit Laboratory Tests Test 06/07/20 05:05 06/07/20 11:27 06/07/20 15:15 06/07/20 16:11 POC Whole Blood Glucose 434 MG/DL (74-106) H 318 MG/DL (74-106) H 172 MG/DL (74-106) H Hepatitis B Surface Antigen Pending Test 06/07/20 21:08 POC Whole Blood Glucose 297 MG/DL (74-106) H Assessment/Plan Assessment/Plan Hypertensive urgency Hypertension/HHD Acute/chronic diastolic CHF Uremia Nausea and vomiting HIV+ IRDM Anti-emetics IV antiHTN meds until able to tolerate oral therapy Cardiac monitoring HD with UF Insulin cov'g by SS DVT prophyl; no heparin until BP parameters stabilize Shamir Dunlap MD Jun 07, 2020 22:57
[2020-06-08] VITALS: BP 159/97
[2020-06-08] MEDS: DiphenhydrAMINE 50mg/ml Inj IVP PRN ×6 (00:19→21:09)
[2020-06-08] MEDS: Morphine Sulfate 2mg/ml Inj(IV/IM USE ONLY) IVP PRN ×6 (00:20→21:09)
[2020-06-08 04:00] VITALS: BP 141/88
[2020-06-08] MEDS: NovoLOG Insulin Flexpen SUBQ SCH ×4 (05:51→20:54)
--- NOTE | 2020-06-08 06:45 | NUR ---
NURSE NOTES: NOTIFIED DR AG REGARDING PTS BLOOD SUGAR OF 432, INSULIN GIVE ORDERED RECHECKED AFTER 30 MIN BLOOD SUGAR 368. DR. AG AWARE.
--- NOTE | 2020-06-08 07:10 | NUR ---
NURSE HAND-OFF REPORT: Important Events on Shift:BLOOD SUGAR OF 432,INSULAIN GIVEN ORDERED, RECHECKED BLOOD SUGAR 368 Patient Status: STABLE Diet: RENAL Pending Orders: [] Pending Results/Labs:[] Pending MD notification:[] Latest Vital Signs: Temperature 97.9 , Pulse 83 , B/P 141 /88 , Respiratory Rate 18 , O2 SAT 97 , Room Air, O2 Flow Rate . Vital Sign Comment: [] EKG Rhythm: Sinus Rhythm Rhythm change?: N MD Notified?: - MD Response: Latest Durán Fall Score: 35 Fall Risk: Medium Risk Safety Measures: Call light Within Reach, Bed Alarm Zone 2, Side Rails Side Rails x2, Bed position Low and Locked. Fall Precautions: Yellow Socks Yellow Gown Door Sign Patient Fall Education Report given to MP.
--- NOTE | 2020-06-08 07:16 | NUR ---
NURSE NOTES: Received Pt report update from MARIELLA Knott. Pt is sitting up in bed eating breakfast independently. Stable. no s/s or complaint of distress on RA. Pt inquiring about pain medication, medication due in 2hr. Pt IV on L Hand 22g, SL asymptomatic and intact. Pt has a R side AV fistula, limb alert band on. Pt bed low and locked, call light in reach and bed alarm on. Pt verbalized understanding to call for help. Pt is able to make needs known.
[2020-06-08 08:00] VITALS: BP 147/90
[2020-06-08] MEDS: Losartan 50mg tab ORAL SCH ×2 (08:29→09:00)
[2020-06-08] MEDS: Imipramine 10mg tab ORAL SCH (08:29)
[2020-06-08] MEDS: Metoprolol Tartrate 50mg tab ORAL SCH ×2 (08:30→20:56)
[2020-06-08] MEDS: Heparin 5000 units/ml inj SUBQ SCH ×2 (08:32→20:55)
--- NOTE | 2020-06-08 09:02 | NUR ---
NURSE NOTES: Pt refused Losartan and Nifedipine this morning. Risks and benefits explained. Pt said "147/90 isnt high for hypertension" in regards to Losartan. Pt had episode of N/V with Nifedipine yesterday. Reported to Dr Ibarra this morning during rounds and Dr said he would d/c medication for Pt.
--- NOTE | 2020-06-08 09:57 | NUR ---
RD ASSESSMENT & RECOMMENDATIONS SEE CARE ACTIVITY FOR COMPLETE ASSESSMENT DAILY ESTIMATED NEEDS: Needs based on ESRD, on HD, DM, HIV/ 61kg 30-35 kcals/kg 8260-1183 total kcals 1.2-1.8 g protein/kg 73-110 g total protein Fluid per MD NUTRITION DIAGNOSIS: *Increased kcal and pro needs r/t renal dysfunction AEB pt w/ ESRD, on HD. *Altered nutrition related lab values r/t DM and ESRD as evidenced by elev BGs and POC glu ([phone]), elev K (5.3), elev creat (7.2), low Na (129) CURRENT DIET:RENAL PO DIET RECOMMENDATIONS: RENAL+ CCHO MEDIUM ADDITIONAL RECOMMENDATIONS: 1) Obtain post- HD wts; standing preferred 2) Nepro BID w/ meals -> DC Ensure Enlive (not indicated for ESRD and DM dx) 3) Long acting insulin for improved BG control 4) Nephrovite x 1 5) Check phos level monitor lytes (low Na + elev K)
[2020-06-08] MEDS: HydrALAZINE 50mg tab ORAL PRN ×2 (11:05→16:27)
[2020-06-08 12:00] VITALS: BP 162/95
--- NOTE | 2020-06-08 12:19 | General Progress Note ---
Subjective ROS Limited/Unobtainable: No Constitutional: Reports: malaise, weakness HEENT: Reports: no symptoms Cardiovascular: Reports: no symptoms Respiratory: Reports: no symptoms Gastrointestinal/Abdominal: Reports: abdominal pain, vomiting Genitourinary: Reports: no symptoms Neurologic/Psychiatric: Reports: no symptoms Endocrine: Reports: no symptoms Hematologic/Lymphatic: Reports: no symptoms Allergies: Coded Allergies: ASPIRIN (Unverified Allergy, Unknown, 02/08/20) All Systems: reviewed and negative except above Subjective vomited x 1 yesterday. none today. still c/o abd pain. no fever or chills. no sob. Objective Last 24 Hour Vital Signs Date Time Temp Pulse Resp B/P (MAP) Pulse Ox O2 Delivery O2 Flow Rate FiO2 06/08/20 11:05 162/95 06/08/20 09:00 83 147/90 06/08/20 09:00 147/90 06/08/20 09:00 Room Air 06/08/20 08:30 83 147/90 06/08/20 08:00 84 06/08/20 08:00 97.7 83 18 147/90 (109) 99 06/08/20 04:00 83 06/08/20 04:00 97.9 83 18 141/88 (105) 97 06/08/20 00:00 98.1 85 20 159/97 (117) 97 06/08/20 00:00 83 06/07/20 21:10 88 157/100 06/07/20 21:00 97.7 86 18 161/100 (120) 99 06/07/20 21:00 Room Air 06/07/20 20:00 88 06/07/20 18:18 87 183/93 06/07/20 16:09 97.9 06/07/20 16:00 97.9 78 20 154/61 (92) 100 06/07/20 16:00 79 06/07/20 13:34 252/111 Intake and Output 06/07/20 06/08/20 19:00 07:00 Intake Total 250 ml Output Total 3000 ml 100 ml Balance -3000 ml 150 ml Intake Oral 250 ml Output Urine Total 100 ml Hemodialysis UF 3000 ml Laboratory Tests 06/07/20 15:15: Hepatitis B Surface Antigen Negative 06/07/20 16:11: POC Whole Blood Glucose 172H 06/07/20 21:08: POC Whole Blood Glucose 297H 06/08/20 04:17: POC Whole Blood Glucose 388H 06/08/20 05:46: POC Whole Blood Glucose 432H 06/08/20 06:27: POC Whole Blood Glucose 368H 06/08/20 10:57: POC Whole Blood Glucose [Pending] Height (Feet): 5 Height (Inches): 8.00 Weight (Pounds): 135 General Appearance: WD/WN, alert EENT: PERRL/EOMI, normal ENT inspection Neck: non-tender, normal alignment, supple Cardiovascular: normal peripheral pulses, normal rate Respiratory/Chest: chest wall non-tender, lungs clear, normal breath sounds, no respiratory distress Abdomen: normal bowel sounds, non tender, soft, no organomegaly Edema: trace edema Neurologic: grocery cashier II-XII grossly normal, alert, oriented x 3 Assessment/Plan Problem List: (1) Hypertensive urgency ICD Codes: I16.0 - Hypertensive urgency SNOMED: 317453610 (2) Uncontrolled hypertension ICD Codes: I10 - Essential (primary) hypertension SNOMED: 75409546, 13337061 (3) Type 1 diabetes ICD Codes: E10.9 - Type 1 diabetes mellitus without complications SNOMED: 14770246 (4) Malignant hypertension (arteriolar nephrosclerosis) ICD Codes: I12.9 - Hypertensive chronic kidney disease with stage 1 through stage 4 chronic kidney disease, or unspecified chronic kidney disease SNOMED: 03327385 (5) Gastroparesis diabeticorum ICD Codes: E11.43 - Type 2 diabetes mellitus with diabetic autonomic (po ly)neuropathy; K31.84 - Gastroparesis SNOMED: 19786177, 114862172 (6) Abdominal pain ICD Codes: R10.9 - Unspecified abdominal pain SNOMED: 10739879 (7) Hypertensive emergency ICD Codes: I16.1 - Hypertensive emergency SNOMED: 971593943609478 (8) ESRD on dialysis ICD Codes: N18.6 - End stage renal disease; Z99.2 - Dependence on renal dialysis SNOMED: 883695612 (9) Nausea & vomiting ICD Codes: R11.2 - Nausea with vomiting, unspecified SNOMED: 41251359 (10) HIV (human immunodeficiency virus infection) ICD Codes: B20 - Human immunodeficiency virus [HIV] disease SNOMED: 46013814 Status: stable, progressing Assessment/Plan: wean pain meds added impiramine for cyclic vomiting cont zofran as needed HD monitor BP cont hiv meds bowel regime titrate insulin - blood sugar still high 389. dc tomorrow if no vomiting, bp controlled and BS controlled. Ben Ibarra MD Jun 08, 2020 12:19
--- NOTE | 2020-06-08 12:40 | NUR ---
CASE MANAGEMENT:REVIEW 06/08/20 SI: HTN URGENCY. AC/CHR CHF. HIV ESRD ON HD. REFUSING ORAL ANALGESICS 97.3 77 18 162/95 99% ON RA GLUCOSE+368 IS: TOFRANIL PO QD CLONIDINE PATCH QWEEK HEPARIN SQ Q12 COZAAR PO QD LOPRESSOR PO Q12 IV MORPHINE 2MG Q4HRS PRN : TELEMETRY STATUS DCP: FROM HOME
--- NOTE | 2020-06-08 12:50 | NUR ---
NURSE NOTES: Dr Ibarra made aware of Pt BP 209/107 on hour after Hydralazine and mild nausea. No new orders. Recheck glucose 222 at this time.
[2020-06-08 16:00] VITALS: BP 194/120
--- NOTE | 2020-06-08 17:17 | Nephrology Progress Note ---
Assessment/Plan Problem List: (1) Hypertensive emergency (2) ESRD (end stage renal disease) (3) Abdominal pain (4) Hyperglycemia (5) HIV (human immunodeficiency virus infection) (6) Gastroparesis diabeticorum (7) Malignant hypertension (arteriolar nephrosclerosis) (8) Nausea & vomiting (9) Type 1 diabetes Plan asks for morphine and benadryl,bp still high, titrate meds, hd 06/09 Subjective Constitutional: Reports: weakness HEENT: Reports: no symptoms Genitourinary: Reports: no symptoms Neurologic/Psychiatric: Reports: no symptoms Objective Objective Last 24 Hour Vital Signs Date Time Temp Pulse Resp B/P (MAP) Pulse Ox O2 Delivery O2 Flow Rate FiO2 06/08/20 16:27 194/120 06/08/20 16:00 97.7 81 18 194/120 (144) 97 06/08/20 12:00 82 06/08/20 12:00 97.3 77 18 162/95 (117) 99 06/08/20 11:05 162/95 06/08/20 09:00 83 147/90 06/08/20 09:00 147/90 06/08/20 09:00 Room Air 06/08/20 08:30 83 147/90 06/08/20 08:00 84 06/08/20 08:00 97.7 83 18 147/90 (109) 99 06/08/20 04:00 83 06/08/20 04:00 97.9 83 18 141/88 (105) 97 06/08/20 00:00 98.1 85 20 159/97 (117) 97 06/08/20 00:00 83 06/07/20 21:10 88 157/100 06/07/20 21:00 97.7 86 18 161/100 (120) 99 06/07/20 21:00 Room Air 06/07/20 20:00 88 06/07/20 18:18 87 183/93 Intake and Output 06/07/20 06/08/20 19:00 07:00 Intake Total 250 ml Output Total 3000 ml 100 ml Balance -3000 ml 150 ml Intake Oral 250 ml Output Urine Total 100 ml Hemodialysis UF 3000 ml Laboratory Tests 06/07/20 21:08: POC Whole Blood Glucose 297H 06/08/20 04:17: POC Whole Blood Glucose 388H 06/08/20 05:46: POC Whole Blood Glucose 432H 06/08/20 06:27: POC Whole Blood Glucose 368H 06/08/20 10:57: POC Whole Blood Glucose [Pending] 06/08/20 12:38: POC Whole Blood Glucose [Pending] 06/08/20 16:26: POC Whole Blood Glucose 274H Height (Feet): 5 Height (Inches): 8.00 Weight (Pounds): 135 General Appearance: no apparent distress, alert EENT: normal ENT inspection Neck: non-tender, normal alignment, supple Cardiovascular: regular rhythm Respiratory/Chest: lungs clear Abdomen: soft, no organomegaly Extremities: no edema Neurologic: order dispatcher II-XII grossly normal Benito Maguire MD Jun 08, 2020 17:17
[2020-06-08] MEDS: HydrALAZINE 50mg tab ORAL SCH (17:59)
--- NOTE | 2020-06-08 19:30 | NUR ---
NURSE NOTES: Received pt and report from MARIELLA Perez. Observed pt resting in bed with both eyes open. Pt is A/Ox4. health occupations teacher is in placed; pt is NSR. IV site intact, asymptomatic, and patent. Bed is in the lowest position and locked. Call light and bedside table is within reach. No signs/symptoms of acute distress noted. Will continue plan of care.
--- NOTE | 2020-06-08 19:36 | NUR ---
NURSE HAND-OFF REPORT: Important Events on Shift: BP 225/109- md aware Patient Status: fc, stable Diet: ccho med, renal Pending Orders: Pending Results/Labs: Pending MD notification: Latest Vital Signs: Temperature 97.7 , Pulse 79 , B/P 225 /125 , Respiratory Rate 18 , O2 SAT 97 , Room Air, O2 Flow Rate . Vital Sign Comment: EKG Rhythm: Sinus Rhythm Rhythm change?: N MD Notified?: - MD Response: Latest Durán Fall Score: 35 Fall Risk: Medium Risk Safety Measures: Call light Within Reach, Bed Alarm Zone 2, Side Rails Side Rails x2, Bed position Low and Locked. Fall Precautions: Yellow Socks Yellow Gown Door Sign Patient Fall Education Report given to Haylie WOLFF.
--- NOTE | 2020-06-08 19:48 | NUR ---
NURSE NOTES: Contacted [facility] and spoke to Christine regarding scheduled HD (06/09/20) per Dr. Maguire. Per Christine, she will inform on-call dialysis nurse.
[2020-06-08 20:00] VITALS: BP 159/98
[2020-06-09] VITALS (7 sets, daily range): BP systolic 128–182; BP diastolic 71–109
[2020-06-09] MEDS: Morphine Sulfate 2mg/ml Inj(IV/IM USE ONLY) IVP PRN ×3 (01:15→18:45)
[2020-06-09] MEDS: DiphenhydrAMINE 50mg/ml Inj IVP PRN ×6 (01:15→22:45)
--- NOTE | 2020-06-09 01:19 | Cardiology Progress Note ---
Subjective DATE OF SERVICE: Jun 08, 2020 Remains with nauseam but less frequent vomiting. S/P hemodialysis yesterday BP parameters remain significantly elevated at times Objective Last 24 Hour Vital Signs Date Time Temp Pulse Resp B/P (MAP) Pulse Ox O2 Delivery O2 Flow Rate FiO2 06/09/20 00:00 81 06/08/20 21:00 Room Air 06/08/20 20:56 83 159/98 06/08/20 20:52 159/98 06/08/20 20:00 97.9 83 17 159/98 (118) 98 06/08/20 20:00 83 06/08/20 17:59 225/125 06/08/20 16:50 97.7 06/08/20 16:27 194/120 06/08/20 16:00 79 06/08/20 16:00 97.7 81 18 194/120 (144) 97 06/08/20 12:00 82 06/08/20 12:00 97.3 77 18 162/95 (117) 99 06/08/20 11:05 162/95 06/08/20 09:00 83 147/90 06/08/20 09:00 147/90 06/08/20 09:00 Room Air 06/08/20 08:30 83 147/90 06/08/20 08:00 84 06/08/20 08:00 97.7 83 18 147/90 (109) 99 06/08/20 04:00 83 06/08/20 04:00 97.9 83 18 141/88 (105) 97 ROS: unchanged from my evaluation of 06/06/20 HEENT: normal ENT inspection RHYTHM: NSR, ST LUNGS: lungs clear bilaterally CARDIAC: normal rate, regular rhythm, normal S1 and S2, gallop/S4 ABDOMEN: normal bowel sounds, non tender, soft, no organomegaly EXTREMITIES: normal range of motion, non-tender, No edema, other - AV fistula with bruit Laboratory Tests Test 06/08/20 04:17 06/08/20 05:46 06/08/20 06:27 06/08/20 10:57 POC Whole Blood Glucose 388 MG/DL (74-106) H 432 MG/DL (74-106) H 368 MG/DL (74-106) H Pending Test 06/08/20 12:38 06/08/20 16:26 06/08/20 20:17 POC Whole Blood Glucose Pending 274 MG/DL (74-106) H 196 MG/DL (74-106) H Assessment/Plan Assessment/Plan Hypertensive urgency Hypertension/HHD Acute/chronic diastolic CHF Uremia Nausea and vomiting HIV+ IRDM with uncontrolled glucose Anti-emetics Continue to uptitrate antiHTN regimen Cardiac monitoring HD with UF Insulin cov'g by SS; optimize long acting insulin dose. DVT prophyl; no heparin until BP parameters stabilize Shamir Dunlap MD Jun 09, 2020 01:19
[2020-06-09] MEDS: cloNIDine 0.2mg Tab ORAL PRN (01:24)
--- NOTE | 2020-06-09 01:29 | NUR ---
NURSE NOTES: Contacted Dr. Dunlap regarding pt's elevated BP of 170/107. Dr. Dunlap ordered Clonidine HCL 0.2mg PO Q4H PRN for BP 160/95. Will note and carry out.
[2020-06-09] MEDS: NovoLOG Insulin Flexpen SUBQ SCH ×4 (05:46→21:04)
[2020-06-09] MEDS ORDERED: Heparin Sod 1000 units/ml 10ml IV PRN (06:00)
--- NOTE | 2020-06-09 07:35 | NUR ---
NURSE HAND-OFF REPORT: Important Events on Shift: Pt still reports of abdominal pain. Dr. Ibarra made aware. Pt continues to have elevated BP. Clonidine PRN ordered per Dr. Dunlap Patient Status: Stable Diet: Renal Diet & CCHO (M) Pending Orders: N Pending Results/Labs: AM Labs Pending MD notification: N Latest Vital Signs: Temperature 97.2 , Pulse 77 , B/P 160 /97 , Respiratory Rate 19 , O2 SAT 94 , Room Air, O2 Flow Rate . EKG Rhythm: Sinus Rhythm Rhythm change?: N Latest Durán Fall Score: 35 Fall Risk: Medium Risk Safety Measures: Call light Within Reach, Bed Alarm Zone 2, Side Rails Side Rails x2, Bed position Low and Locked. Fall Precautions: Yellow Socks Patient Fall Education Report given to MARIELLA Dunaway.
--- NOTE | 2020-06-09 07:40 | NUR ---
NURSE NOTES: Pt. received from MARIELLA Doe. Pt. AAOx4, on room air, breathing even and unlabored, no indications of respiratory distress, active complaints of pain, will follow up with pain interventions as ordered. AV fistula noted right upper arm. IV access left forearm 20g saline locked. Pt. scheduled for hemodialysis today 06/09 as endorsed by nurse advisor nurse. Bed low and locked, side rails x2 up, bed alarm active, and call light in reach.
--- NOTE | 2020-06-09 07:46 | Nephrology Progress Note ---
Assessment/Plan Problem List: (1) Hypertensive emergency (2) ESRD (end stage renal disease) (3) Abdominal pain (4) Hyperglycemia (5) HIV (human immunodeficiency virus infection) (6) Gastroparesis diabeticorum (7) Malignant hypertension (arteriolar nephrosclerosis) (8) Nausea & vomiting (9) Type 1 diabetes Plan asks for morphine and benadryl,bp still high, titrate meds, hd 06/09, watch bp with fluid removal on hd Subjective Constitutional: Reports: weakness HEENT: Reports: no symptoms Genitourinary: Reports: no symptoms Neurologic/Psychiatric: Reports: no symptoms Objective Objective Last 24 Hour Vital Signs Date Time Temp Pulse Resp B/P (MAP) Pulse Ox O2 Delivery O2 Flow Rate FiO2 06/09/20 04:00 77 06/09/20 04:00 97.2 77 19 160/97 (118) 94 06/09/20 01:24 167/103 06/09/20 00:00 97.0 82 19 167/103 (124) 97 06/09/20 00:00 81 06/08/20 21:00 Room Air 06/08/20 20:56 83 159/98 06/08/20 20:52 159/98 06/08/20 20:00 97.9 83 17 159/98 (118) 98 06/08/20 20:00 83 06/08/20 17:59 225/125 06/08/20 16:50 97.7 06/08/20 16:27 194/120 06/08/20 16:00 79 06/08/20 16:00 97.7 81 18 194/120 (144) 97 06/08/20 12:00 82 06/08/20 12:00 97.3 77 18 162/95 (117) 99 06/08/20 11:05 162/95 06/08/20 09:00 83 147/90 06/08/20 09:00 147/90 06/08/20 09:00 Room Air 06/08/20 08:30 83 147/90 06/08/20 08:00 84 06/08/20 08:00 97.7 83 18 147/90 (109) 99 Intake and Output 06/08/20 06/09/20 19:00 07:00 Intake Total 360 ml 210 ml Output Total 0 ml Balance 360 ml 210 ml Intake Oral 360 ml 210 ml Output Urine Total 0 ml Laboratory Tests 06/08/20 10:57: POC Whole Blood Glucose [Pending] 06/08/20 12:38: POC Whole Blood Glucose [Pending] 06/08/20 16:26: POC Whole Blood Glucose 274H 06/08/20 20:17: POC Whole Blood Glucose 196H 06/09/20 05:41: POC Whole Blood Glucose [Pending] Height (Feet): 5 Height (Inches): 8.00 Weight (Pounds): 135 General Appearance: no apparent distress, alert EENT: normal ENT inspection Neck: normal alignment Cardiovascular: regular rhythm Respiratory/Chest: lungs clear Abdomen: non tender, soft Extremities: no edema Neurologic: senior clinical research scientist II-XII grossly normal Benito Maguire MD Jun 09, 2020 07:46
--- NOTE | 2020-06-09 08:00 | NUR ---
NURSE NOTES: Pt. with ST elevation reported by property assessment monitor, Dr. Ibarra called and notified, orders received for 12 lead EKG, and one dose 0.4 NTG sublingual. Pt. blood pressure 168/104 and pt reporting chest pain radiating to epigastric area, no shortness of breath noted.
[2020-06-09] MEDS ORDERED: Nitroglycerin Subl 0.4mg tab SL SCH (08:15)
--- NOTE | 2020-06-09 08:30 | NUR ---
NURSE NOTES: Dr. Ibarra was notified of pt's 12 lead egf, normal sinus rhythm, no new orders received.
--- NOTE | 2020-06-09 08:40 | General Progress Note ---
Subjective ROS Limited/Unobtainable: No Constitutional: Reports: malaise, weakness HEENT: Reports: no symptoms Cardiovascular: Reports: chest pain Respiratory: Reports: no symptoms Gastrointestinal/Abdominal: Reports: abdominal pain Genitourinary: Reports: no symptoms Neurologic/Psychiatric: Reports: no symptoms Endocrine: Reports: no symptoms Hematologic/Lymphatic: Reports: no symptoms Allergies: Coded Allergies: ASPIRIN (Unverified Allergy, Unknown, 02/08/20) All Systems: reviewed and negative except above Subjective no vomiting. c/o CP this am. no fever or chills. no cough. BS elevated. Objective Last 24 Hour Vital Signs Date Time Temp Pulse Resp B/P (MAP) Pulse Ox O2 Delivery O2 Flow Rate FiO2 06/09/20 04:00 77 06/09/20 04:00 97.2 77 19 160/97 (118) 94 06/09/20 01:24 167/103 06/09/20 00:00 97.0 82 19 167/103 (124) 97 06/09/20 00:00 81 06/08/20 21:00 Room Air 06/08/20 20:56 83 159/98 06/08/20 20:52 159/98 06/08/20 20:00 97.9 83 17 159/98 (118) 98 06/08/20 20:00 83 06/08/20 17:59 225/125 06/08/20 16:50 97.7 06/08/20 16:27 194/120 06/08/20 16:00 79 06/08/20 16:00 97.7 81 18 194/120 (144) 97 06/08/20 12:00 82 06/08/20 12:00 97.3 77 18 162/95 (117) 99 06/08/20 11:05 162/95 06/08/20 09:00 83 147/90 06/08/20 09:00 147/90 06/08/20 09:00 Room Air Intake and Output 06/08/20 06/09/20 19:00 07:00 Intake Total 360 ml 210 ml Output Total 0 ml Balance 360 ml 210 ml Intake Oral 360 ml 210 ml Output Urine Total 0 ml Laboratory Tests 06/08/20 10:57: POC Whole Blood Glucose [Pending] 06/08/20 12:38: POC Whole Blood Glucose [Pending] 06/08/20 16:26: POC Whole Blood Glucose 274H 06/08/20 20:17: POC Whole Blood Glucose 196H 06/09/20 05:41: POC Whole Blood Glucose [Pending] Height (Feet): 5 Height (Inches): 8.00 Weight (Pounds): 135 Objective General Appearance: WD/WN, alert EENT: PERRL/EOMI, normal ENT inspection Neck: non-tender, normal alignment, supple Cardiovascular: normal peripheral pulses, normal rate Respiratory/Chest: chest wall non-tender, lungs clear, normal breath sounds, no respiratory distress Abdomen: normal bowel sounds, non tender, soft, no organomegaly Edema: trace edema 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 grossly normal, alert, oriented x 3 Assessment/Plan Problem List: (1) Hypertensive urgency ICD Codes: I16.0 - Hypertensive urgency SNOMED: 796479276 (2) Uncontrolled hypertension ICD Codes: I10 - Essential (primary) hypertension SNOMED: 99272078, 57323032 (3) Type 1 diabetes ICD Codes: E10.9 - Type 1 diabetes mellitus without complications SNOMED: 86260600 (4) Malignant hypertension (arteriolar nephrosclerosis) ICD Codes: I12.9 - Hypertensive chronic kidney disease with stage 1 through stage 4 chronic kidney disease, or unspecified chronic kidney disease SNOMED: 73586430 (5) Gastroparesis diabeticorum ICD Codes: E11.43 - Type 2 diabetes mellitus with diabetic autonomic (poly)neuropathy; K31.84 - Gastroparesis SNOMED: 75852495, 532535318 (6) Abdominal pain ICD Codes: R10.9 - Unspecified abdominal pain SNOMED: 10450903 (7) Hypertensive emergency ICD Codes: I16.1 - Hypertensive emergency SNOMED: 537831160166262 (8) ESRD on dialysis ICD Codes: N18.6 - End stage renal disease; Z99.2 - Dependence on renal dialysis SNOMED: 329070185 (9) Nausea & vomiting ICD Codes: R11.2 - Nausea with vomiting, unspecified SNOMED: 49992016 (10) HIV (human immunodeficiency virus infection) ICD Codes: B20 - Human immunodeficiency virus [HIV] disease SNOMED: 70173579 Status: stable, progressing Assessment/Plan: wean pain meds added impiramine for cyclic vomiting cont zofran as needed HD monitor BP cont hiv meds bowel regime titrate insulin check ekg and trop SL nitro vq scan Ben Ibarra MD Jun 09, 2020 08:40
[2020-06-09] MEDS: Heparin 5000 units/ml inj SUBQ SCH ×2 (09:00→21:03)
[2020-06-09] MEDS: Losartan 50mg tab ORAL SCH (09:00)
[2020-06-09] MEDS: Metoprolol Tartrate 50mg tab ORAL SCH ×2 (09:00→21:04)
[2020-06-09] MEDS: HydrALAZINE 50mg tab ORAL SCH ×2 (09:00→17:36)
[2020-06-09] MEDS: Imipramine 10mg tab ORAL SCH (09:02)
[2020-06-09] MEDS ORDERED: Morphine Sulfate 2mg/ml Inj(IV/IM USE ONLY) IVP SCH (10:00)
--- NOTE | 2020-06-09 10:38 | NUR ---
NURSE NOTES: Notified by Stevan in nuclear medicine that pt. will be unable to received ventilation portion of exam as pt does not have a documented covid result; will be able to received perfusion portion of exam as ordered. Dr. Ibarra notified, no new orders received.
[2020-06-09] MEDS ORDERED: HYDROcodone/Acetamin 10/325 tab ORAL PRN (10:45)
--- NOTE | 2020-06-09 10:47 | NUR ---
RADIOLOGY DEPT., CHEST X-RAY DONE.-P.DYE
--- NOTE | 2020-06-09 12:31 | Diagnostic Imaging Report ---
EXAM: NUCLEAR MEDICINE VENTILATION/PERFUSION SCAN. CLINICAL HISTORY: Chest pain. Shortness of breath.. COMPARISON: Nuclear medicine VQ scan dated 05/12/2020 TECHNIQUE: Ventilation not performed. 5 mCi technetium 99 MAA was used for the perfusion portion. SPECT images are obtained in multiple planes. FINDINGS: There is homogeneous uptake in both lungs on perfusion images. No perfusion defect. Perfusion appears unchanged from comparison examination. IMPRESSION: Limited examination due to lack of ventilation scanning. BY MODIFIED PIOPED CRITERIA, STUDY IS OF LOW PROBABILITY FOR PULMONARY EMBOLISM.
[2020-06-09] MEDS: Levemir Flexpen SUBQ SCH ×2 (12:44→17:38)
--- NOTE | 2020-06-09 14:39 | Diagnostic Imaging Report ---
Indication: Reason For Exam: CP Technique: Single AP view of the chest. Comparison: Chest radiograph dated 06/06/2020 Findings: The cardiomediastinal silhouette is within normal limits. There is no focal consolidation, pneumothorax or pleural effusion. Osseous structures demonstrate no acute abnormality. IMPRESSION: No radiographic evidence of acute cardiopulmonary process.
--- NOTE | 2020-06-09 19:03 | NUR ---
NURSE HAND-OFF REPORT: Important Events on Shift:[HD dialysis, 3L out. Pt. hypertensive upon completion, controlled with scheduled hydralazine, x1 BM Patient Status: stable Diet: renal, CCHO medium Pending Orders: na Pending Results/Labs:na Pending MD notification:na Latest Vital Signs: Temperature 97.5 , Pulse 75 , B/P 128 /71 , Respiratory Rate 18 , O2 SAT 97 , Room Air, O2 Flow Rate . Vital Sign Comment: stable EKG Rhythm: Sinus Rhythm Rhythm change?: N MD Notified?: - MD Response: Latest Durán Fall Score: 35 Fall Risk: Medium Risk Safety Measures: Call light Within Reach, Bed Alarm Zone 2, Side Rails Side Rails x2, Bed position Low and Locked. Fall Precautions: Yellow Socks Patient Fall Education Report given to [].
--- NOTE | 2020-06-09 19:24 | NUR ---
HAND-OFF: Report given to MARIELLA Stallings.
--- NOTE | 2020-06-09 19:30 | NUR ---
NURSE NOTES: Received pt and report from MARIELLA Dunaway. Observed pt resting in bed with both eyes open. Pt is A/Ox4. teletypesetter monitor is in placed; pt is NSR. IV site intact, asymptomatic, and patent. Bed is in the lowest position and locked. Call light and bedside table is within reach. No complaint of chest pain or signs/symptoms or acute distress noted. Will continue plan of care.
[2020-06-10] VITALS (7 sets, daily range): BP systolic 137–187; BP diastolic 82–114
--- NOTE | 2020-06-10 00:46 | Cardiology Progress Note ---
Subjective DATE OF SERVICE: Jun 09, 2020 Remains with nausea but no frequent vomiting. Episode of chest pain today: troponin was negative and V/Q scan was negative for pulmonary embolus S/P hemodialysis today BP parameters remain significantly elevated at times Objective Last 24 Hour Vital Signs Date Time Temp Pulse Resp B/P (MAP) Pulse Ox O2 Delivery O2 Flow Rate FiO2 06/10/20 00:00 97.9 77 17 139/87 (104) 97 06/10/20 00:00 76 06/09/20 21:04 76 142/86 06/09/20 21:00 Room Air 06/09/20 20:00 76 06/09/20 20:00 97.5 78 17 142/86 (104) 96 06/09/20 18:30 128/71 (90) 06/09/20 17:36 182/109 06/09/20 16:00 97.5 75 18 182/109 (133) 97 06/09/20 16:00 75 06/09/20 12:00 74 06/09/20 12:00 97.7 80 20 163/103 (123) 98 06/09/20 09:04 168/104 06/09/20 09:00 Room Air 06/09/20 09:00 81 168/104 06/09/20 08:00 80 06/09/20 08:00 97.9 74 18 164/104 (124) 97 06/09/20 04:00 77 06/09/20 04:00 97.2 77 19 160/97 (118) 94 06/09/20 01:24 167/103 ROS: unchanged from my evaluation of 06/06/20 HEENT: normal ENT inspection RHYTHM: NSR, ST LUNGS: lungs clear bilaterally CARDIAC: normal rate, regular rhythm, normal S1 and S2, gallop/S4 ABDOMEN: normal bowel sounds, non tender, soft, no organomegaly EXTREMITIES: normal range of motion, non-tender, No edema, other - AV fistula with bruit Laboratory Tests Test 06/09/20 05:41 06/09/20 09:15 06/09/20 12:01 06/09/20 14:26 POC Whole Blood Glucose Pending 195 MG/DL (74-106) H 119 MG/DL (74-106) H Troponin I 0.000 ng/mL (0.000-0.056) Test 06/09/20 17:08 10/22/20 20:55 POC Whole Blood Glucose Pending 167 MG/DL (74-106) H Assessment/Plan Assessment/Plan Hypertensive urgency improving No signs of unstable coronary flow at present Hypertension/HHD Acute/chronic diastolic CHF Uremia Nausea and vomiting HIV+ IRDM with uncontrolled glucose Anti-emetics Continue to uptitrate antiHTN regimen Cardiac monitoring HD with UF Insulin cov'g by SS; optimize long acting insulin dose. DVT prophyl with SQ heparin Shamir Dunlap MD Jun 10, 2020 00:46
[2020-06-10] MEDS: DiphenhydrAMINE 50mg/ml Inj IVP PRN ×6 (02:45→22:50)
[2020-06-10] MEDS: Morphine Sulfate 2mg/ml Inj(IV/IM USE ONLY) IVP PRN ×3 (02:46→18:51)
[2020-06-10] MEDS: NovoLOG Insulin Flexpen SUBQ SCH ×4 (06:22→21:19)
--- NOTE | 2020-06-10 07:30 | NUR ---
NURSE HAND-OFF REPORT: Important Events on Shift: No significant changes during fast food shift lead. Patient Status: Stable Diet: Renal/CCHO (M) Pending Orders: N Pending Results/Labs: N Pending MD notification: N Latest Vital Signs: Temperature 97.9 , Pulse 78 , B/P 150 /89 , Respiratory Rate 19 , O2 SAT 96 , Room Air, O2 Flow Rate . EKG Rhythm: Sinus Rhythm Rhythm change?: N Latest Durán Fall Score: 35 Fall Risk: Medium Risk Safety Measures: Call light Within Reach, Bed Alarm Zone 2, Side Rails Side Rails x2, Bed position Low and Locked. Fall Precautions: Yellow Socks Patient Fall Education Report given to MARIELLA Chan.
--- NOTE | 2020-06-10 07:30 | NUR ---
NURSE NOTES: Received patient in bed. Awake, A/O x4. On room air, respirations unlabored. IV in the Left FA, site itnact. Heart monitor on. Bed low and locked, side rails up x2. Calll light within reach with retuirn demonstration.
[2020-06-10] MEDS ORDERED: IMIPRAMINE HCL10 MG ORAL (08:25)
[2020-06-10] MEDS: Imipramine 10mg tab ORAL SCH (08:37)
[2020-06-10] MEDS: Heparin 5000 units/ml inj SUBQ SCH ×2 (08:41→21:02)
[2020-06-10] MEDS: Levemir Flexpen SUBQ SCH ×2 (08:46→17:15)
--- NOTE | 2020-06-10 08:52 | NUR ---
NURSE NOTES: Patient refusing PO anti-hypertensive medications. Patient states "my blood pressure is not high. I will take it when it is high." RN informed patient of hsi diagnosis and use for medications. Informed of risks and benefits. Patient states "I do not need it. My blood pressure will go too low if I take the medications."
[2020-06-10] MEDS: HydrALAZINE 50mg tab ORAL SCH ×2 (09:00→17:10)
[2020-06-10] MEDS: Losartan 50mg tab ORAL SCH (09:00)
[2020-06-10] MEDS: Metoprolol Tartrate 50mg tab ORAL SCH ×2 (09:00→21:05)
--- NOTE | 2020-06-10 09:27 | Nephrology Progress Note ---
Assessment/Plan Problem List: (1) Hypertensive emergency (2) ESRD (end stage renal disease) (3) Abdominal pain (4) Hyperglycemia (5) HIV (human immunodeficiency virus infection) (6) Gastroparesis diabeticorum (7) Malignant hypertension (arteriolar nephrosclerosis) (8) Nausea & vomiting (9) Type 1 diabetes Plan still c/o abd pain, lido patch ordered, bp better, titrate meds, hd 06/09, +06/11 watch bp with fluid removal on hd Subjective Constitutional: Reports: weakness HEENT: Reports: no symptoms Genitourinary: Reports: no symptoms Neurologic/Psychiatric: Reports: no symptoms Objective Objective Last 24 Hour Vital Signs Date Time Temp Pulse Resp B/P (MAP) Pulse Ox O2 Delivery O2 Flow Rate FiO2 06/10/20 08:00 97.9 80 17 137/90 (106) 99 06/10/20 04:00 78 06/10/20 04:00 97.9 78 19 150/89 (109) 96 06/10/20 00:00 97.9 77 17 139/87 (104) 97 06/10/20 00:00 76 06/09/20 21:04 76 142/86 06/09/20 21:00 Room Air 06/09/20 20:00 76 06/09/20 20:00 97.5 78 17 142/86 (104) 96 06/09/20 18:30 128/71 (90) 06/09/20 17:36 182/109 06/09/20 16:00 97.5 75 18 182/109 (133) 97 06/09/20 16:00 75 06/09/20 12:00 74 06/09/20 12:00 97.7 80 20 163/103 (123) 98 Intake and Output 06/09/20 06/10/20 19:00 07:00 Intake Total 360 ml 310 ml Balance 360 ml 310 ml Intake Oral 360 ml 310 ml # Bowel Movements 2 Laboratory Tests 06/09/20 12:01: POC Whole Blood Glucose 195H 06/09/20 14:26: POC Whole Blood Glucose 119H 06/09/20 17:08: POC Whole Blood Glucose [Pending] 06/09/20 20:55: POC Whole Blood Glucose 167H 06/10/20 06:14: POC Whole Blood Glucose [Pending] Height (Feet): 5 Height (Inches): 8.00 Weight (Pounds): 135 General Appearance: alert, thin EENT: normal ENT inspection Neck: supple Cardiovascular: regular rhythm Respiratory/Chest: lungs clear Abdomen: soft, no organomegaly Extremities: no edema Neurologic: acid maker II-XII grossly normal Benito Maguire MD Jun 10, 2020 09:27
--- NOTE | 2020-06-10 11:09 | NUR ---
NURSE NOTES: [facility] nephrology called for HD scheduled 06/11/2020. Spoke to Michael.
--- NOTE | 2020-06-10 14:46 | NUR ---
NURSE NOTES: Patietn states he feels blood sugar low and a headache. Blood glucose checked with 45 level. Patient is A/O x4, sitting in semi-fowlers, able to make his needs known. Cranberry juice 590 mL given, tolerating well. Patient informed of recheck for blood sugar in 15 mins.
--- NOTE | 2020-06-10 15:10 | NUR ---
NURSE NOTES: Blood sugar rechecked with level of 48. 472 mL cranberry given, tolerating well. Patient states he feels better, headache is relieved. Patient informed of rechecking in 15 minsutes.
--- NOTE | 2020-06-10 15:13 | NUR ---
CASE MANAGEMENT:REVIEW 06/10/20 SI: HTN URGENCY. AC/CHR CHF. HIV ESRD ON HD. REFUSING ORAL ANALGESICS 97.9 80 17 137/90 99% ON RA IS: LIDOCAINE PATCH Q24 IV MORPHINE 2MG Q8HRS PRN LEVEMIR SQ BID CLONIDINE PATCH QWEEK HYDRALAZINE PO BID TOFRANIL PO QD HEPARIN SQ Q12 COZAAR PO QD LOPRESSOR PO Q12 : TELEMETRY STATUS DCP: FROM HOME PLAN: PAIN MANAGEMENT ~ WEANING
[2020-06-10] MEDS: cloNIDine 0.2mg Tab ORAL PRN (15:16)
--- NOTE | 2020-06-10 15:50 | NUR ---
NURSE NOTES: Blood sugar rechecked with result of 167. Patient states "i feel better. I feel my blood sugar fine now."
--- NOTE | 2020-06-10 19:04 | NUR ---
NURSE HAND-OFF REPORT: Important Events on Shift:[IV pain meds, IV benadryl, high BP event, hypoglycemia event] Patient Status: [FULL CODE] Diet: [renal, CCHO] Pending Orders: [] Pending Results/Labs:[] Pending MD notification:[] Latest Vital Signs: Temperature 97.6 , Pulse 85 , B/P 151 /82 , Respiratory Rate 17 , O2 SAT 98 , Room Air, O2 Flow Rate . Vital Sign Comment: [] EKG Rhythm: Sinus Rhythm Rhythm change?: N MD Notified?: - MD Response: Latest Durán Fall Score: 35 Fall Risk: Medium Risk Safety Measures: Call light Within Reach, Bed Alarm Zone 2, Side Rails Side Rails x2, Bed position Low and Locked. Fall Precautions: Yellow Socks Patient Fall Education Report given to [].
--- NOTE | 2020-06-10 19:15 | NUR ---
NURSE NOTES: Report received from MARIELLA Atkins. Awake alert and makes needs known with no SOB or acute distress. Call light in reach with bedside table. traffic monitor specialist intact. Bed at lowest position locked with side rails up and bed alarm activated. Will continue with plan of care.
--- NOTE | 2020-06-10 19:45 | Discharge Summary ---
DATE OF ADMISSION: 06/06/2020 DATE OF DISCHARGE: 06/10/2020 ADMISSION DIAGNOSES: 1. Uncontrolled hypertension. 2. Diabetes, out of control. 3. Intractable abdominal pain, nausea, and vomiting ____ possible cyclic vomiting. 4. End-stage renal disease. 5. Human immunodeficiency virus. DISCHARGE DIAGNOSES: 1. Uncontrolled hypertension. 2. Diabetes, out of control. 3. Intractable abdominal pain, nausea, and vomiting ____ possible cyclic vomiting. 4. End-stage renal disease. 5. Human immunodeficiency virus. HOSPITAL COURSE: Mr. Wilson was admitted with complaints of uncontrolled hypertension secondary to nausea and vomiting who was admitted. He has had several episodes in the past. He required IV pain medications, antiemetics. He was started on ____ possible cyclic vomiting. His hospital course was complicated by chest pain. He had negative enzymes and a V/Q scan showed no evidence of PE. On discharge, he was stable to be discharged home with outpatient followup and continue hemodialysis. DISCHARGE MEDICATIONS: Please see discharge list for discharge medications. DIET: Renal, cardiac, diabetic diet. ACTIVITY: Ad chris. Ben Ibarra M.D. DR: RONALDO JOB#: [id number] CC:
[2020-06-11] VITALS (7 sets, daily range): BP systolic 138–187; BP diastolic 70–105
[2020-06-11] MEDS: DiphenhydrAMINE 50mg/ml Inj IVP PRN ×5 (03:26→22:17)
--- NOTE | 2020-06-11 03:26 | Cardiology Progress Note ---
Subjective DATE OF SERVICE: Jun 10, 2020 BP remains significantly elevated at times. I was not informed by staff until now, that patient has been frequently refusing his BP meds in the day. And he is using benadryl and pain meds instead ATC. Episode of chest pain today: troponin was negative and V/Q scan was negative for pulmonary embolus S/P hemodialysis today BP parameters remain significantly elevated at times Objective Last 24 Hour Vital Signs Date Time Temp Pulse Resp B/P (MAP) Pulse Ox O2 Delivery O2 Flow Rate FiO2 06/11/20 00:00 97.6 75 17 149/80 (103) 99 06/11/20 00:00 72 06/10/20 21:05 79 162/80 06/10/20 21:00 Room Air 06/10/20 20:00 97.6 78 17 162/85 (110) 97 06/10/20 20:00 78 06/10/20 17:10 151/82 06/10/20 16:00 78 06/10/20 16:00 97.6 85 17 151/82 (105) 98 06/10/20 15:17 187/114 (138) 06/10/20 15:16 187/114 06/10/20 12:00 75 06/10/20 12:00 98.5 74 17 142/93 (109) 96 06/10/20 09:00 Room Air 06/10/20 08:00 79 06/10/20 08:00 97.9 80 17 137/90 (106) 99 06/10/20 04:00 78 06/10/20 04:00 97.9 78 19 150/89 (109) 96 ROS: unchanged from my evaluation of 06/06/20 HEENT: normal ENT inspection RHYTHM: NSR, ST LUNGS: lungs clear bilaterally CARDIAC: normal rate, regular rhythm, normal S1 and S2, gallop/S4 ABDOMEN: normal bowel sounds, non tender, soft, no organomegaly EXTREMITIES: normal range of motion, non-tender, No edema, other - AV fistula with bruit Laboratory Tests Test 06/10/20 06:14 06/10/20 10:50 06/10/20 14:36 06/10/20 15:11 POC Whole Blood Glucose Pending Pending Pending Pending Test 06/10/20 15:50 06/10/20 21:08 POC Whole Blood Glucose Pending Pending Assessment/Plan Assessment/Plan Hypertensive urgency improving No signs of unstable coronary flow at present Hypertension/HHD Acute/chronic diastolic CHF Uremia Nausea and vomiting HIV+ IRDM with uncontrolled glucose Taper benadryl dosing. Limits set on narcotic analgesics. Continue to encourage compliance with antiHTN regimen Cardiac monitoring HD with UF Insulin cov'g by SS; optimize long acting insulin dose. DVT prophyl with SQ heparin Shamir Dunlap MD Jun 11, 2020 03:26
[2020-06-11] MEDS ORDERED: Heparin Sod 1000 units/ml 10ml IV PRN (06:00)
--- NOTE | 2020-06-11 06:00 | NUR ---
NURSE NOTES: Dr. Ibarra made aware that patient's Morphine 2mg IVP order last night at 2300. Offered [place] as ordered but patient refused stating that he would rather take morphine. Dr. Ibarra replied at this time, NOT to renew Morphine. Patient made aware.
[2020-06-11] MEDS: NovoLOG Insulin Flexpen SUBQ SCH ×4 (06:18→20:30)
--- NOTE | 2020-06-11 07:48 | NUR ---
NURSE HAND-OFF REPORT: Important Events on Shift:[Morphine order , Dr. Ibarra aware. Order NOT to renew Morphine. BP stable at this time. ] Patient Status: [Stable alert and oriented] Diet: [Renal CCHO MED] Pending Orders: [] Pending Results/Labs:[] Pending MD notification:[] Latest Vital Signs: Temperature 97.8 , Pulse 77 , B/P 138 /74 , Respiratory Rate 18 , O2 SAT 98 , Room Air, O2 Flow Rate . Vital Sign Comment: [] EKG Rhythm: Sinus Rhythm Rhythm change?: N MD Notified?: - MD Response: Latest Durán Fall Score: 35 Fall Risk: Medium Risk Safety Measures: Call light Within Reach, Bed Alarm Zone 2, Side Rails Side Rails x2, Bed position Low and Locked. Fall Precautions: Yellow Socks Patient Fall Education Report given to [MARIELLA Jenkins].
--- NOTE | 2020-06-11 07:49 | NUR ---
NURSE NOTES: Received hand-off report from MARIELLA Beltran. Patient in high fowlers, resting in bed and eating well. Denies chest pain at this time. Breathing even and unlabored, alert and oriented x4. ekg monitor in place, patient aware of dialysis procedure today, AV fistula on right arm intact, bruit present and thrill, no bleeding or bruising noted anywhere. Call light within reach, bed in lowest and locked position, IV 20g site on left forearm intact, flushing, no signs of infiltration, no redness, no leaking noted.
[2020-06-11] MEDS: Imipramine 10mg tab ORAL SCH (08:38)
--- NOTE | 2020-06-11 08:49 | NUR ---
NURSE NOTES: Notified [facility] and Clay stated that she will be here to dialyze patient at 11:00.
[2020-06-11] MEDS: Levemir Flexpen SUBQ SCH ×2 (08:51→18:07)
[2020-06-11] MEDS: Heparin 5000 units/ml inj SUBQ SCH ×2 (09:00→20:29)
[2020-06-11] MEDS: Losartan 50mg tab ORAL SCH ×2 (09:00→18:35)
--- NOTE | 2020-06-11 09:27 | Nephrology Progress Note ---
Assessment/Plan Problem List: (1) Hypertensive emergency (2) ESRD (end stage renal disease) (3) Abdominal pain (4) Hyperglycemia (5) HIV (human immunodeficiency virus infection) (6) Gastroparesis diabeticorum (7) Malignant hypertension (arteriolar nephrosclerosis) (8) Nausea & vomiting (9) Type 1 diabetes Plan still c/o abd pain, lido patch ordered, bp better, titrate meds, hd 06/09, +06/11 watch bp with fluid removal on hd Subjective Constitutional: Reports: weakness HEENT: Reports: no symptoms Genitourinary: Reports: no symptoms Neurologic/Psychiatric: Reports: no symptoms Objective Objective Last 24 Hour Vital Signs Date Time Temp Pulse Resp B/P (MAP) Pulse Ox O2 Delivery O2 Flow Rate FiO2 06/11/20 04:00 77 06/11/20 04:00 97.8 72 18 138/74 (95) 98 06/11/20 00:00 97.6 75 17 149/80 (103) 99 06/11/20 00:00 72 06/10/20 21:05 79 162/80 06/10/20 21:00 Room Air 06/10/20 20:00 97.6 78 17 162/85 (110) 97 06/10/20 20:00 78 06/10/20 17:10 151/82 06/10/20 16:00 78 06/10/20 16:00 97.6 85 17 151/82 (105) 98 06/10/20 15:17 187/114 (138) 06/10/20 15:16 187/114 06/10/20 12:00 75 06/10/20 12:00 98.5 74 17 142/93 (109) 96 Intake and Output 06/10/20 06/11/20 19:00 07:00 Intake Total 1000 ml 300 ml Balance 1000 ml 300 ml Intake Oral 1000 ml 300 ml # Voids 2 Laboratory Tests 06/10/20 10:50: POC Whole Blood Glucose [Pending] 06/10/20 14:36: POC Whole Blood Glucose [Pending] 06/10/20 15:11: POC Whole Blood Glucose [Pending] 06/10/20 15:50: POC Whole Blood Glucose [Pending] 06/10/20 21:08: POC Whole Blood Glucose [Pending] Height (Feet): 5 Height (Inches): 8.00 Weight (Pounds): 135 General Appearance: thin EENT: normal ENT inspection Neck: normal alignment Cardiovascular: regular rhythm Respiratory/Chest: lungs clear Abdomen: non tender Extremities: non-tender, no edema Neurologic: manager medicare II-XII grossly normal Benito Maguire MD Jun 11, 2020 09:27
--- NOTE | 2020-06-11 09:30 | NUR ---
NURSE NOTES: Per charge nurse Cesia, blood pressure medications were held due to scheduled hemodialysis today.
--- NOTE | 2020-06-11 10:18 | General Progress Note ---
Subjective Constitutional: Reports: malaise, weakness HEENT: Reports: no symptoms Cardiovascular: Reports: no symptoms Respiratory: Reports: cough Gastrointestinal/Abdominal: Reports: abdominal pain Genitourinary: Reports: no symptoms Neurologic/Psychiatric: Reports: no symptoms Endocrine: Reports: no symptoms Hematologic/Lymphatic: Reports: no symptoms Allergies: Coded Allergies: ASPIRIN (Unverified Allergy, Unknown, 02/08/20) All Systems: reviewed and negative except above Subjective no vomiting. c/o CP this am. no fever or chills. no cough. BS elevated. continues to request iv pain meds. extensive w/u negative. appears comfortable. eating breakfast. no distress Objective Last 24 Hour Vital Signs Date Time Temp Pulse Resp B/P (MAP) Pulse Ox O2 Delivery O2 Flow Rate FiO2 06/11/20 04:00 77 06/11/20 04:00 97.8 72 18 138/74 (95) 98 06/11/20 00:00 97.6 75 17 149/80 (103) 99 06/11/20 00:00 72 06/10/20 21:05 79 162/80 06/10/20 21:00 Room Air 06/10/20 20:00 97.6 78 17 162/85 (110) 97 06/10/20 20:00 78 06/10/20 17:10 151/82 06/10/20 16:00 78 06/10/20 16:00 97.6 85 17 151/82 (105) 98 06/10/20 15:17 187/114 (138) 06/10/20 15:16 187/114 06/10/20 12:00 75 06/10/20 12:00 98.5 74 17 142/93 (109) 96 Intake and Output 06/10/20 06/11/20 19:00 07:00 Intake Total 1000 ml 300 ml Balance 1000 ml 300 ml Intake Oral 1000 ml 300 ml # Voids 2 Laboratory Tests 06/10/20 10:50: POC Whole Blood Glucose [Pending] 06/10/20 14:36: POC Whole Blood Glucose [Pending] 06/10/20 15:11: POC Whole Blood Glucose [Pending] 06/10/20 15:50: POC Whole Blood Glucose [Pending] 06/10/20 21:08: POC Whole Blood Glucose [Pending] Height (Feet): 5 Height (Inches): 8.00 Weight (Pounds): 135 Objective General Appearance: WD/WN, alert EENT: PERRL/EOMI, normal ENT inspection Neck: non-tender, normal alignment, supple Cardiovascular: normal peripheral pulses, normal rate Respiratory/Chest: chest wall non-tender, lungs clear, normal breath sounds, no respiratory distress Abdomen: normal bowel sounds, non tender, soft, no organomegaly Edema: trace edema Neurologic: train starter II-XII grossly normal, alert, oriented x 3 Assessment/Plan Problem List: (1) Hypertensive urgency ICD Codes: I16.0 - Hypertensive urgency SNOMED: 644823840 (2) Uncontrolled hypertension ICD Codes: I10 - Essential (primary) hypertension SNOMED: 99822191, 75832526 (3) Type 1 diabetes ICD Codes: E10.9 - Type 1 diabetes mellitus without complications SNOMED: 08504608 (4) Malignant hypertension (arteriolar nephrosclerosis) ICD Codes: I12.9 - Hypertensive chronic kidney disease with stage 1 through stage 4 chronic kidney disease, or unspecified chronic kidney disease SNOMED: 34823437 (5) Gastroparesis diabeticorum ICD Codes: E11.43 - Type 2 diabetes mellitus with diabetic autonomic (poly)neuropathy; K31.84 - Gastroparesis SNOMED: 87678703, 675659253 (6) Abdominal pain ICD Codes: R10.9 - Unspecified abdominal pain SNOMED: 73672298 (7) Hypertensive emergency ICD Codes: I16.1 - Hypertensive emergency SNOMED: 807432835945965 (8) ESRD on dialysis ICD Codes: N18.6 - End stage renal disease; Z99.2 - Dependence on renal dialysis SNOMED: 903595662 (9) Nausea & vomiting ICD Codes: R11.2 - Nausea with vomiting, unspecified SNOMED: 12437124 (10) HIV (human immunodeficiency virus infection) ICD Codes: B20 - Human immunodeficiency virus [HIV] disease SNOMED: 69117845 Status: stable, progressing Assessment/Plan: wean pain meds added impiramine for cyclic vomiting cont zofran as needed HD monitor BP cont hiv meds bowel regime titrate insulin SL nitro vq scan negative- reviewed with pt dc after HD today Ben Ibarra MD Jun 11, 2020 10:18
--- NOTE | 2020-06-11 11:00 | NUR ---
NURSE NOTES: Dr. Ibarra was notified and stated that creatinine 7.2, sodium 129 and potassium 129 will be resolved with dialysis and to wait until next lab draw to determine which labs needs correcting then. No new orders at this time.
[2020-06-11] MEDS: Metoprolol Tartrate 50mg tab ORAL SCH ×2 (11:23→20:28)
--- NOTE | 2020-06-11 13:10 | NUR ---
NURSE NOTES: All blood pressures today was taken on the left arm.
--- NOTE | 2020-06-11 13:43 | Cardiology Progress Note ---
Subjective DATE OF SERVICE: Jun 11, 2020 BP better today with patient taking meds. Outpatient compliance discussed. Episode of chest pain yesterday: troponin was negative and V/Q scan was negative for pulmonary embolus Scheduled for hemodialysis today Objective Last 24 Hour Vital Signs Date Time Temp Pulse Resp B/P (MAP) Pulse Ox O2 Delivery O2 Flow Rate FiO2 06/11/20 12:45 85 158/94 (115) 06/11/20 12:00 97.6 80 18 187/105 (132) 100 06/11/20 12:00 80 06/11/20 11:23 84 187/109 06/11/20 08:00 97.5 72 16 159/82 (107) 100 06/11/20 08:00 80 06/11/20 04:00 77 06/11/20 04:00 97.8 72 18 138/74 (95) 98 06/11/20 00:00 97.6 75 17 149/80 (103) 99 06/11/20 00:00 72 06/10/20 21:05 79 162/80 06/10/20 21:00 Room Air 06/10/20 20:00 97.6 78 17 162/85 (110) 97 06/10/20 20:00 78 06/10/20 17:10 151/82 06/10/20 16:00 78 06/10/20 16:00 97.6 85 17 151/82 (105) 98 06/10/20 15:17 187/114 (138) 06/10/20 15:16 187/114 ROS: unchanged from my evaluation of 06/06/20 HEENT: normal ENT inspection RHYTHM: NSR, ST LUNGS: lungs clear bilaterally CARDIAC: normal rate, regular rhythm, normal S1 and S2, gallop/S4 ABDOMEN: normal bowel sounds, non tender, soft, no organomegaly EXTREMITIES: normal range of motion, non-tender, No edema, other - AV fistula with bruit Laboratory Tests Test 06/10/20 14:36 06/10/20 15:11 06/10/20 15:50 06/10/20 21:08 POC Whole Blood Glucose Pending Pending Pending Pending Assessment/Plan Assessment/Plan Hypertensive urgency improving No signs of unstable coronary flow at present Hypertension/HHD Acute/chronic diastolic CHF Uremia Nausea and vomiting HIV+ IRDM with uncontrolled glucose Limits set on narcotic analgesics and benadryl use. Continue to encourage compliance with antiHTN regimen HD with UF per usual outpatient schedule. Insulin cov'g by SS; optimize long acting insulin dose based on outpatient diet. Outpatient appointments again arranged. Shamir Dunlap MD Jun 11, 2020 13:43
[2020-06-11] MEDS: HydrALAZINE 50mg tab ORAL SCH (18:00)
--- NOTE | 2020-06-11 18:39 | NUR ---
NURSE NOTES: Patient is refusing to be discharged.
--- NOTE | 2020-06-11 19:25 | NUR ---
NURSE HAND-OFF REPORT: Important Events on Shift: Discharge order in place, Dr. Ibarra notified regarding refusal to discharge, patient concerned about having a hyperglycemic and hypertensive episode; patient exhibited attempting to pocket medication; dialysis today Patient Status: full code, stable condition Diet: CCHO medium Pending Orders: [] Pending Results/Labs:[] Pending MD notification:[] Latest Vital Signs: Temperature 98.0 , Pulse 74 , B/P 142 /86 , Respiratory Rate 18 , O2 SAT 100 , Room Air, O2 Flow Rate . Vital Sign Comment: WNL, bruit and thrill present EKG Rhythm: Sinus Rhythm Rhythm change?: N MD Notified?: - MD Response: Latest Durán Fall Score: 15 Fall Risk: Low Risk Safety Measures: Call light Within Reach, Bed Alarm Zone 2, Side Rails Side Rails x2, Bed position Low and Locked. Fall Precautions: Yellow Socks Yellow Gown Patient Fall Education Report given to Kanika Busch RN.
--- NOTE | 2020-06-11 19:30 | NUR ---
NURSE NOTES: Received hand-off report from MARIELLA Hill. Patient in semi fowlers, resting in bed at this time. Denies chest pain at this time. Breathing even and unlabored on room air, alert and oriented x4. stonework tracer in place, patient had dialysis earlier with 2 L out. AV fistula on right arm intact, bruit auscultated and thrill palpated. Call light within reach, bed in lowest and locked position, IV 20g site on left forearm intact, flushing, no signs of infiltration, no redness, no leaking noted.
[2020-06-12 00:09] VITALS: BP 151/95
[2020-06-12] MEDS: DiphenhydrAMINE 50mg/ml Inj IVP PRN (02:55)
[2020-06-12] MEDS: cloNIDine 0.2mg Tab ORAL PRN (03:04)
[2020-06-12 03:05] VITALS: BP 173/100
[2020-06-12 05:43] VITALS: BP 188/107
[2020-06-12] MEDS: NovoLOG Insulin Flexpen SUBQ SCH (06:21)
--- NOTE | 2020-06-12 07:42 | NUR ---
NURSE HAND-OFF REPORT: Important Events on Shift: Discharge order in place, pt refused to be discharged, concerned re hyperglycemic and hypertensive episodes, HTN meds failed to bring BP down terrance was 188/100, clonidine 0.2 mg given twice, asked to show to make sure no pocketing, no pocketing observed Patient Status: full code, hypertensive throughout the night Pending Orders: [] Pending Results/Labs:[] Pending MD notification:HTN episodes Latest Vital Signs: Temperature 98.0 , Pulse 74 , B/P 142 /86 , Respiratory Rate 18 , O2 SAT 100 , Room Air, O2 Flow Rate . Vital Sign Comment: hypertensive bruit and thrill present EKG Rhythm: Sinus Rhythm Rhythm change?: N MD Notified?: - MD Response: Latest Durán Fall Score: 15 Fall Risk: Low Risk Safety Measures: Call light Within Reach, Bed Alarm Zone 2, Side Rails Side Rails x2, Bed position Low and Locked. Fall Precautions: Yellow Socks Yellow Gown Patient Fall Education Report given to MARIELLA Hill
--- NOTE | 2020-06-12 07:43 | NUR ---
NURSE NOTES: Received hand-off report from Kanika Busch RN. Patient resting in bed, high-fowlers, patient alert and oriented x4, able to follow commands, pleasant demeanor, notified him he is to be discharged today per Dr. Ibarra. Patient on room air, breathing unlabored and even, spO2 100%, breath sounds clear, no signs of respiratory distress at this time. Left forearm IV 20g saline locked, no leaking, no redness, no infiltration, no bruising noted, skin is clean dry and intact. Right upper arm AV fistula is clean, dry and intact, no bleeding, no bruising, thrill and bruit present. Call light within reach, yellow socks on, patient is eating, no aspiration noted. child monitor in place.
[2020-06-12 08:00] VITALS: BP 157/99
[2020-06-12] MEDS: Imipramine 10mg tab ORAL SCH (08:11)
[2020-06-12] MEDS: Losartan 50mg tab ORAL SCH (08:12)
[2020-06-12] MEDS: HydrALAZINE 50mg tab ORAL SCH (08:12)
[2020-06-12] MEDS: Metoprolol Tartrate 50mg tab ORAL SCH (08:13)
[2020-06-12] MEDS: Heparin 5000 units/ml inj SUBQ SCH (08:14)
[2020-06-12] MEDS: Levemir Flexpen SUBQ SCH (08:25)
[2020-06-12 08:53] VITALS: BP 146/88
--- NOTE | 2020-06-12 10:02 | General Progress Note ---
Subjective ROS Limited/Unobtainable: No Constitutional: Reports: malaise, weakness HEENT: Reports: no symptoms Cardiovascular: Reports: no symptoms Respiratory: Reports: no symptoms Gastrointestinal/Abdominal: Reports: no symptoms Genitourinary: Reports: no symptoms Neurologic/Psychiatric: Reports: no symptoms Endocrine: Reports: no symptoms Hematologic/Lymphatic: Reports: no symptoms Allergies: Coded Allergies: ASPIRIN (Unverified Allergy, Unknown, 02/08/20) All Systems: reviewed and negative except above Subjective refused to be discharged. no specific reason why. pt lives with his mother. agrees to dc today. no nausea or vomiting. BS stable. Objective Last 24 Hour Vital Signs Date Time Temp Pulse Resp B/P (MAP) Pulse Ox O2 Delivery O2 Flow Rate FiO2 06/12/20 09:00 Room Air 06/12/20 08:53 74 146/88 (107) 06/12/20 08:13 77 185/108 06/12/20 08:12 185/108 06/12/20 08:12 185/108 06/12/20 08:00 157/99 (118) 06/12/20 08:00 81 06/12/20 05:43 97.6 78 19 188/107 (134) 98 06/12/20 04:00 76 06/12/20 03:05 97.8 78 19 173/100 (124) 98 06/12/20 03:04 173/100 06/12/20 00:09 98.8 80 18 151/95 (113) 98 06/12/20 00:00 82 06/11/20 21:01 Room Air 06/11/20 20:28 80 168/100 06/11/20 20:00 77 06/11/20 20:00 98.0 76 18 168/100 (122) 99 06/11/20 18:35 142/86 06/11/20 18:00 144/70 06/11/20 18:00 144/70 06/11/20 16:00 74 06/11/20 16:00 98.0 74 18 144/70 (94) 100 06/11/20 12:45 85 158/94 (115) 06/11/20 12:00 97.6 80 18 187/105 (132) 100 06/11/20 12:00 80 06/11/20 11:23 84 187/109 Intake and Output 06/11/20 06/12/20 19:00 07:00 Intake Total 300 ml 240 ml Output Total 5000 ml Balance -4700 ml 240 ml Intake Oral 300 ml 240 ml Output Urine Total 0 ml Hemodialysis UF 5000 ml # Voids 2 1 # Bowel Movements 1 Laboratory Tests 06/11/20 14:24: POC Whole Blood Glucose [Pending] 06/12/20 05:38: POC Whole Blood Glucose 271H 06/12/20 08:22: POC Whole Blood Glucose 200H Height (Feet): 5 Height (Inches): 8.00 Weight (Pounds): 135 Objective General Appearance: WD/WN, alert EENT: PERRL/EOMI, normal ENT inspection Neck: non-tender, normal alignment, supple Cardiovascular: normal peripheral pulses, normal rate Respiratory/Chest: chest wall non-tender, lungs clear, normal breath sounds, no respiratory distress Abdomen: normal bowel sounds, non tender, soft, no organomegaly Edema: trace edema Neurologic: cavity pump operator II-XII grossly normal, alert, oriented x 3 Assessment/Plan Problem List: (1) Hypertensive urgency ICD Codes: I16.0 - Hypertensive urgency SNOMED: 449714781 (2) Uncontrolled hypertension ICD Codes: I10 - Essential (primary) hypertension SNOMED: 70441080, 15575682 (3) Type 1 diabetes ICD Codes: E10.9 - Type 1 diabetes mellitus without complications SNOMED: 19933249 (4) Malignant hypertension (arteriolar nephrosclerosis) ICD Codes: I12.9 - Hypertensive chronic kidney disease with stage 1 through stage 4 chronic kidney disease, or unspecified chronic kidney disease SNOMED: 39813937 (5) Gastroparesis diabeticorum ICD Codes: E11.43 - Type 2 diabetes mellitus with diabetic autonomic (poly)neuropathy; K31.84 - Gastroparesis SNOMED: 65322553, 936285822 (6) Abdominal pain ICD Codes: R10.9 - Unspecified abdominal pain SNOMED: 23095701 (7) Hypertensive emergency ICD Codes: I16.1 - Hypertensive emergency SNOMED: 782729354911271 (8) ESRD on dialysis ICD Codes: N18.6 - End stage renal disease; Z99.2 - Dependence on renal dialysis SNOMED: 958279286 (9) Nausea & vomiting ICD Codes: R11.2 - Nausea with vomiting, unspecified SNOMED: 75167473 (10) HIV (human immunodeficiency virus infection) ICD Codes: B20 - Human immunodeficiency virus [HIV] disease SNOMED: 95189717 Status: stable, progressing Assessment/Plan: off pain meds and benadryl monitor for vomiting HD per renal dc today- pt agrees. Ben Ibarra MD Jun 12, 2020 10:02
--- NOTE | 2020-06-12 10:11 | NUR ---
NURSE NOTES: Patient was discharged out from the hospital at 10:10. We waited 10 minutes for the Lyft car to arrive when the discharge time was initially planned for 10:00. finished yarn examiner removed and given to ammonia technician, IV on left forearm 20g removed, skin is intact, dry, clean, no bleeding, no bruising. Discharge instructions and patient education provided, patient verbalized understanding. Vital signs WNL, patient alert and orientedx4, in no acute distress, breathing even and unlabored, patient belonging all accounted for and counted in front of patient and patient signed belongings list. Patient was wheeled out of the hospital via [facility] wheelchair into the Lyft ride safely with all personal belongings and medications.
--- NOTE | 2020-06-12 12:50 | Cardiology Progress Note ---
Subjective DATE OF SERVICE: Jun 12, 2020 Patient did not want to go home after dialysis yesterday. He had some BP elevations again early this morning. Outpatient compliance with meds diet, and HD sessions discussed. Objective Last 24 Hour Vital Signs Date Time Temp Pulse Resp B/P (MAP) Pulse Ox O2 Delivery O2 Flow Rate FiO2 06/12/20 09:00 Room Air 06/12/20 08:53 74 146/88 (107) 06/12/20 08:13 77 185/108 06/12/20 08:12 185/108 06/12/20 08:12 185/108 06/12/20 08:00 157/99 (118) 06/12/20 08:00 81 06/12/20 05:43 97.6 78 19 188/107 (134) 98 06/12/20 04:00 76 06/12/20 03:05 97.8 78 19 173/100 (124) 98 06/12/20 03:04 173/100 06/12/20 00:09 98.8 80 18 151/95 (113) 98 06/12/20 00:00 82 06/11/20 21:01 Room Air 06/11/20 20:28 80 168/100 06/11/20 20:00 77 06/11/20 20:00 98.0 76 18 168/100 (122) 99 06/11/20 18:35 142/86 06/11/20 18:00 144/70 06/11/20 18:00 144/70 06/11/20 16:00 74 06/11/20 16:00 98.0 74 18 144/70 (94) 100 ROS: unchanged from my evaluation of 06/06/20 HEENT: normal ENT inspection RHYTHM: NSR, ST LUNGS: lungs clear bilaterally CARDIAC: normal rate, regular rhythm, normal S1 and S2, gallop/S4 ABDOMEN: normal bowel sounds, non tender, soft, no organomegaly EXTREMITIES: normal range of motion, non-tender, No edema, other - AV fistula with bruit Laboratory Tests Test 06/11/20 14:24 06/12/20 05:38 06/12/20 08:22 POC Whole Blood Glucose Pending 271 MG/DL (74-106) H 200 MG/DL (74-106) H Assessment/Plan Assessment/Plan Hypertensive urgency improving No signs of unstable coronary flow at present Hypertension/HHD Acute/chronic diastolic CHF Uremia Nausea and vomiting HIV+ IRDM with uncontrolled glucose MEDs discussed, including prn dosing for BP spikes as outpatient. Continue to encourage compliance with all facets of care plan. HD with UF per usual outpatient schedule. Insulin cov'g by SS; optimize long acting insulin dose based on outpatient diet. Outpatient appointments again arranged. Shamir Dunlap MD Jun 12, 2020 12:50
== END 2020-06-12 10:10 | disposition home or self-care (01) | DRG 304 ==
LOC: EDUNIT# 18:50 → EDBD 18:50 → EMR 19:53 → 2E 20:50 → EDBEDREQ 22:13 → 2E 23:26
PROC: 5A1D70Z Performance of Urinary Filtration, Intermittent, Less than 6 Hours Per Day (ICD-10-PCS; principal; 2020-06-07)
DX: I16.0 Hypertensive urgency (principal); N18.6 End stage renal disease; I50.33 Acute on chronic diastolic (congestive) heart failure; I13.2 Hypertensive heart and chronic kidney disease with heart failure and with stage 5 chronic kidney disease, or end stage renal disease; R11.15 Cyclical vomiting syndrome unrelated to migraine; I51.3 Intracardiac thrombosis, not elsewhere classified; Z88.6 Allergy status to analgesic agent; E11.65 Type 2 diabetes mellitus with hyperglycemia; E11.43 Type 2 diabetes mellitus with diabetic autonomic (poly)neuropathy; K31.84 Gastroparesis; G62.9 Polyneuropathy, unspecified; E78.5 Hyperlipidemia, unspecified; Z79.4 Long term (current) use of insulin; K29.70 Gastritis, unspecified, without bleeding; Z99.2 Dependence on renal dialysis; Z91.14 Patient's other noncompliance with medication regimen
CPT/HCPCS: 36415; 71045; 78580; 80053; 82962; 83690; 84484; 85025; 86706; 87081; 93005; 96374; 96375; 96376; 99285; G0480; J1815; J2405; S5561

== ENCOUNTER 2020-06-25 15:40 | Inpatient (IN) | payer MEDICARE, OTHER ==
[~2020-06-25] VITALS: Ht 175.3 cm; Wt 73.5 kg
[~2020-06-25 15:40] MED LIST changes: +IMIPRAMINE HCL10 MG ORAL
[2020-06-25 15:43] VITALS: BP 207/118
[2020-06-25] MEDS ORDERED: LABETALOL HCL100 MG ORAL (15:49)
[2020-06-25] MEDS ORDERED: CATAPRES0.1 MG ORAL (15:49)
[2020-06-25] MEDS ORDERED: NIFEDIPINE10 MG ORAL (15:49)
[2020-06-25] MEDS ORDERED: FUROSEMIDE20 M1 ORAL (15:49)
[2020-06-25] MEDS ORDERED: HYDRALAZINE HCL10 MG ORAL (15:49)
[2020-06-25] MEDS ORDERED: ATORVASTATIN CA10 MG ORAL (15:49)
[2020-06-25] MEDS ORDERED: KEPPRA500 M4 ORAL (15:49)
[2020-06-25] MEDS ORDERED: BENAZEPRIL HCL10 MG ORAL (15:49)
[2020-06-25] MEDS ORDERED: Morphine Sulfate 4mg/ml Inj (IV USE ONLY) IVP ONE ×2 (16:00→18:30)
--- NOTE | 2020-06-25 16:14 | Emergency Room Report ---
History of Present Illness General Chief Complaint: Chest Pain Source: Patient Present Illness HPI Disclaimer: Please note that this report is being documented using [employer] technology. This can lead to erroneous entry secondary to incorrect interpretation by the dictating instrument. HPI: 29-year-old male with history of end-stage renal disease, on dialysis Saturday, history of hypertension, diabetes, chronic abdominal pain, presents for chest pain, shortness of breath hypertension. He states he did go to dialysis yesterday and was supposed to go today but was not feeling well so did not go. Picked up by EMS from home. He was hypertensive on arrival. Complaining of chest pain and abdominal pain with nausea and vomiting and unable to tolerate oral intake. Patient was admitted here for similar presentation approximately 2 weeks ago. He denies any fevers. No diarrhea. He states "I feel overloaded" transport corps officer is Dr. Kulkarni. Allergies: Coded Allergies: ASPIRIN (Unverified Allergy, Unknown, 02/08/20) COVID-19 Screening Contact w/high risk pt: No Recent Travel to affected area: No Experienced COVID-19 symptoms?: No COVID-19 Testing performed RETAIL BUSINESS MANAGER: No Patient History Reviewed Nursing Documentation: PMH: Agreed; PSxH: Agreed Nursing Documentation-PMH Hx Hypertension: Yes Hx Diabetes: Yes Hx Cancer: No Hx Gastrointestinal Problems: No Hx Dialysis: Yes - dialysis T TH Sat, CKD Hx Neurological Problems: No Hx Seizures: Yes Review of Systems All Other Systems: negative except mentioned in HPI Physical Exam Vital Signs Date Time Temp Pulse Resp B/P (MAP) Pulse Ox O2 Delivery O2 Flow Rate FiO2 06/25/20 15:33 98.6 107 19 214/131 (158) 99 Room Air Sp02 EP Interpretation: reviewed, normal General Appearance: no apparent distress, Chronically Ill Head: normocephalic, atraumatic, other - Facial edema noted Eyes: bilateral eye PERRL, bilateral eye EOMI ENT: hearing grossly normal, moist mucus membranes Neck: full range of motion, supple Respiratory: lungs clear, normal breath sounds, no rhonchi, no respiratory distress, no retraction, no wheezing Cardiovascular #1: normal peripheral pulses, no murmur, tachycardia Gastrointestinal: non tender, soft, non-distended, no guarding Musculoskeletal: other - Dialysis access right upper extremity with thrill Neurologic: alert, oriented x3, no focal defects Skin: normal color, warm/dry Medical Decision Making Diagnostic Impression: Primary Impression: Hypertensive urgency Additional Impression: Nausea & vomiting ER Course MDM: Differential diagnosis included but not limited to medication noncomplia nce, fluid overload, hypertensive urgency, uncontrolled diabetes, gastroparesis, to name a few Clinical course-IV inserted hydralazine given nitroglycerin given. Patient received additional nitro and aspirin by EMS prior to arrival. By EMS prior to arrival. Aspirin was not given due to her reported history of aspirin allergy. Patient's troponin was negative. However due to his shortness of breath chest pain multiple cardiac risk factors with inability to tolerate oral medications and poor compliance with medications and possible need for dialysis patient will be admitted to the telemetry floor. Patient accepted by Dr. Ibarra Labs - Laboratory Tests Test 06/25/20 16:10 White Blood Count 7.1 K/UL (4.8-10.8) Red Blood Count 2.90 M/UL (4.70-6.10) L Hemoglobin 9.5 G/DL (14.2-18.0) L Hematocrit 29.7 % (42.0-52.0) L Mean Corpuscular Volume 102 FL (80-99) H Mean Corpuscular Hemoglobin 32.8 PG (27.0-31.0) H Mean Corpuscular Hemoglobin Concent 32.0 G/DL (32.0-36.0) Red Cell Distribution Width 15.4 % (11.6-14.8) H Platelet Count 229 K/UL (150-450) Mean Platelet Volume 6.4 FL (6.5-10.1) L Neutrophils (%) (Auto) 72.1 % (45.0-75.0) Lymphocytes (%) (Auto) 16.3 % (20.0-45.0) L Monocytes (%) (Auto) 7.2 % (1.0-10.0) Eosinophils (%) (Auto) 3.2 % (0.0-3.0) H Basophils (%) (Auto) 1.3 % (0.0-2.0) Prothrombin Time 10.6 SEC (9.30-11.50) Prothrombin Time INR 1.0 (0.9-1.1) Activated Partial Thromboplast Time 24 SEC (23-33) Sodium Level 140 MMOL/L (136-145) Potassium Level 4.8 MMOL/L (3.5-5.1) Chloride Level 101 MMOL/L (98-107) Carbon Dioxide Level 29 MMOL/L (21-32) Anion Gap 10 mmol/L (5-15) Blood Urea Nitrogen 38 mg/dL (7-18) H Creatinine 7.0 MG/DL (0.55-1.30) H Estimated Glomerular Filtration Rate 11.5 mL/min (>60) Glucose Level 183 MG/DL (74-106) H Calcium Level 8.5 MG/DL (8.5-10.1) Magnesium Level 2.5 MG/DL (1.8-2.4) H Total Bilirubin 0.3 MG/DL (0.2-1.0) Aspartate Amino Transferase (AST) 64 U/L (15-37) H Alanine Aminotransferase (ALT) 69 U/L (12-78) Alkaline Phosphatase 126 U/L (46-116) H Troponin I 0.014 ng/mL (0.000-0.056) Pro-B-Type Natriuretic Peptide 64952 pg/mL (0-125) H Total Protein 7.5 G/DL (6.4-8.2) Albumin 3.5 G/DL (3.4-5.0) Globulin 4.0 g/dL Albumin/Globulin Ratio 0.9 (1.0-2.7) L EKG Diagnostic Results Rate: tachycardiac Rhythm: other - Sinus tachycardia Other Impression Left atrial enlargement Chest X-Ray Diagnostic Results Chest X-Ray Diagnostic Results : Chest X-Ray Ordered: Yes # of Views/Limited/Complete: 1 View Indication: Chest Pain Interpretation: no consolidation, no effusion, no pneumothorax Impression: No acute disease Electronically Signed by: Carlitos Barrientos MD Last Vital Signs Date Time Temp Pulse Resp B/P (MAP) Pulse Ox O2 Delivery O2 Flow Rate FiO2 06/25/20 15:33 98.6 107 19 214/131 (158) 99 Room Air Disposition: ADMITTED INPATIENT Condition: Serious Carlitos aBrrientos M.D. Jun 25, 2020 16:14
[2020-06-25] MEDS ORDERED: DiphenhydrAMINE 50mg/ml Inj IVP ONE ×2 (16:15)
[2020-06-25 16:28] LABS: BASOPHILS % (AUTO) 1.3 % (0.0-2.0); EOSINOPHILS % (AUTO) 3.2 % (0.0-3.0); HEMATOCRIT 29.7 % (42.0-52.0); HEMOGLOBIN 9.5 G/DL (14.2-18.0); LYMPHOCYTES % (AUTO) 16.3 % (20.0-45.0); MEAN CORPUSCULAR VOLUME 102 FL (80-99); MONOCYTES % (AUTO) 7.2 % (1.0-10.0); NEUTROPHILS % (AUTO) 72.1 % (45.0-75.0); PLATELET COUNT 229 K/UL (150-450); RED CELL DISTRIBUTION WIDTH 15.4 % (11.6-14.8); WHITE BLOOD COUNT 7.1 K/UL (4.8-10.8)
[2020-06-25 16:36] LABS: CALCIUM 8.5 MG/DL (8.5-10.1); POTASSIUM 4.8 MMOL/L (3.5-5.1)
[2020-06-25] MEDS ORDERED: Nitroglycerin 2% oint pkt TOPIC ONE (16:45)
[2020-06-25 16:49] LABS: ALBUMIN 3.5 G/DL (3.4-5.0); ALBUMIN/GLOBULIN RATIO 0.9 (1.0-2.7); BILIRUBIN,TOTAL 0.3 MG/DL (0.2-1.0)
--- NOTE | 2020-06-25 17:58 | Diagnostic Imaging Report ---
EXAM: XR Chest, 1 View CLINICAL HISTORY: SOB TECHNIQUE: Frontal view of the chest. COMPARISON: No relevant prior studies available. FINDINGS: Lungs: Unremarkable. No consolidation. Pleural space: Unremarkable. No pneumothorax. Heart: Unremarkable. No cardiomegaly. Mediastinum: Unremarkable. Bones/joints: Unremarkable. IMPRESSION: No acute cardiopulmonary disease.
[2020-06-25 18:00] VITALS: BP 168/98
[2020-06-25] MEDS: Morphine Sulfate 2mg/ml Inj(IV/IM USE ONLY) IVP PRN (21:36)
[2020-06-25] MEDS: DiphenhydrAMINE 50mg/ml Inj IVP PRN (21:36)
[2020-06-25] MEDS: Levemir Flexpen SUBQ SCH (21:37)
--- NOTE | 2020-06-25 22:02 | History & Physical ---
History and Physical History & Physicial Full dictation to follow Rohith Vela MD Jun 25, 2020 22:02
--- NOTE | 2020-06-25 23:30 | History and Physical Report ---
DATE OF ADMISSION: 06/25/2020 NOTE: INCOMPLETE DICTATION NEPHROLOGY CONSULT REFERRING PHYSICIAN: Ben Ibarra MD REASON FOR CONSULT: Patient with end-stage renal disease, has presented with significant hypertension. HISTORY OF PRESENT ILLNESS: This is one of the many admissions for this somewhat noncompliant 29-year-old male, who has type 1 diabetes mellitus with multiple complications including end-stage renal disease, being on hemodialysis. Apparently got dialyzed yesterday and he has been having some fluid overload, was supposed to be dialyzed again today as an outpatient. He missed his dialysis and he started to have some nausea and vomiting, presented to the emergency room of [facility]. His blood pressure was in the range of 200/100 and has had some increasing shortness of breath, for which he has been admitted. I have been asked to see him and assess him for his hemodialysis needs. PAST MEDICAL HISTORY: Significant for type 1 diabetes mellitus since age of 14. He has had diabetic retinopathy. He has had previous laser treatment and also diabetic nephropathy and end-stage renal disease, as well as some degree of diabetic neuropathy. He also has gastroparesis causing him to have frequent nausea and vomiting. He has had also significant noncompliance with dialysis treatment and hypertension. PAST SURGICAL HISTORY: Status post AV fistula creation in the left arm. SOCIAL HISTORY: He does not smoke. Does not drink alcohol. No drugs. He lives in . He has been on hemodialysis for the past 3 years. MEDICATIONS: 1. Lipitor 10 mg p.o. 2. Clonidine 0.1 mg p.o. q.6h. 3. Clonidine TTS patch 0.2 mg weekly. 4. Benadryl 25 mg IV once. 5. Tivicay 50 mg a day. 6. Furosemide 20 mg p.o. daily. 7. Heparin 2000 units. 8. Hydralazine 20 mg IV once. 9. [place] 10/325 mg q.6h. p.r.n. 10. Imipramine 50 mg p.o. daily. 11. NovoLog insulin 3 units t.i.d. before each meal. 12. Labetalol 100 mg p.o. q.12h. 13. Levemir 16 units subcu at bedtime. 14. Losartan 50 mg p.o. daily. 15. Reglan 5 mg oral q.6h. p.r.n. Nausea, vomiting. 16. Morphine sulfate 2 mg IV 1 time. 17. Nephro-Chaz 1 tablet p.o. daily. 18. Nitroglycerin ointment . 19. Zofran 4 mg IV q.6h. p.r.n. 20. Pantoprazole 40 mg q.12h. daily. Rohith Vela M.D. DR: MARYANA JOB#: [id number] CC:
--- NOTE | 2020-06-25 23:45 | Consultation ---
DATE OF CONSULTATION: 06/26/2020 ADDENDUM REVIEW OF SYSTEMS: GENERAL: He has not had any significant weight change. Appetite has been somewhat poor. CARDIOVASCULAR: Denies any chest pain. He has some degree of dyspnea with exertion, some facial edema. NEUROLOGICAL: Denies any muscle weakness. He has some paresthesia in the lower extremities. GASTROINTESTINAL: He has been having some intermittent nausea and vomiting. HEMATOLOGICAL: Denies easy bruising or easy bleeding. Blood sugars have been somewhat erratic between 150 and 300. RESPIRATORY: Denies any cough, sputum production, hemoptysis, or wheezing. SKIN: Denies any rash or photosensitivity. MUSCULOSKELETAL: Denies any arthralgia or myalgia. The remainder of the review of the systems has been essentially negative. PHYSICAL EXAMINATION: GENERAL: He does not seem to be in much acute distress. VITAL SIGNS: Blood pressure right now is about 191/111, pulse of 101, respirations 15, temperature 98 degrees Fahrenheit. HEENT: Head is atraumatic. Eyes, pupils reactive to light. No evidence of papilledema. Ears, canals are clear. Tympanic membranes are intact. Nose, nares are patent. Denies any nasal discharge. Throat without inflammation or exudate. NECK: Supple. Jugular venous distention is somewhat increased. No cervical adenopathy. No thyromegaly. HEART: Regular rhythm. No gallop. LUNGS: Clear to auscultation. ABDOMEN: Supple. Bowel sounds positive. No hepatosplenomegaly. EXTREMITIES: Lower extremity shows trace pedal edema. NEUROLOGICAL: Cranial nerves are intact. Deep tendon reflexes are symmetrically decreased in both lower extremities. IMPRESSION: 1. End-stage renal disease. 2. Hypertension, out of control. 3. Some degree of fluid overload. 4. Gastroparesis. PLAN: We are going to arrange for hemodialysis tomorrow and some fluid removal. I discussed with him also the possibility of hemodialysis for about 6 to 8 hours 3 days a week in order to make him more compliant and for him to have a better quality of life. He is considering that option. Rohith Vela M.D. DR: MARYANA JOB#: [id number] CC:
[2020-06-26] VITALS (7 sets, daily range): BP systolic 160–245; BP diastolic 89–111
[2020-06-26] MEDS: HYDROcodone/Acetamin 10/325 tab ORAL PRN (00:03)
[2020-06-26] MEDS: HydrALAZINE 10mg Tab ORAL SCH ×2 (00:04→05:22)
[2020-06-26] MEDS: Morphine Sulfate 2mg/ml Inj(IV/IM USE ONLY) IVP PRN ×4 (01:32→19:43)
[2020-06-26] MEDS: NovoLOG Insulin Flexpen SUBQ SCH ×3 (02:08→17:12)
--- NOTE | 2020-06-26 02:44 | Consultation ---
DATE OF CONSULTATION: 06/25/2020 CARDIOLOGY CONSULTATION CONSULTING PHYSICIAN: Shamir Dunlap MD REQUESTING PHYSICIAN: Ben Ibarra MD REASON FOR CONSULTATION: Malignant hypertension. HISTORY OF PRESENT ILLNESS: This is a 29-year-old male with history of end-stage renal disease, on hemodialysis, who presented to the emergency room with nausea, vomiting, and shortness of breath. He got dialyzed yesterday and was apparently going to receive a second dialysis session today due to a previous missed one, but his nausea and vomiting ensued prompting him to come to the emergency room instead. His blood pressure reading was 200/100 systolic. The patient has had previous such episodes in the past and has a history of noncompliance with his dialysis on a regular basis. PAST MEDICAL HISTORY: Includes type 1 diabetes mellitus with retinopathy, nephropathy, and neuropathy with gastroparesis; history of GI bleeding with recent endoscopies revealing mild gastritis only; hypertension; hypertensive heart disease and malignant-range blood pressure; history of left upper extremity AV fistula; HIV/AIDS; diastolic congestive heart failure; and hyperlipidemia. SOCIAL HISTORY: No alcohol. Denies substance abuse. Denies smoking. ALLERGIES: Aspirin. MEDICATIONS: Medications prior to admission, reviewed and reconciled. FAMILY HISTORY: Notable for diabetes. REVIEW OF SYSTEMS: No known COVID-19 exposures. No fevers or chills. No history of seizures or strokes. His prior echocardiograms here have revealed normal ejection fraction with concentric hypertrophy and no significant pulmonary hypertension. There is no history of asthma or abnormal blood clotting. There is no history of thyroid impairment. He is on anti-lipid drugs. He is on insulin. He has had endoscopy as described above due to GI bleeding. He has gastroparesis due to neuropathy and has recurring episodes of nausea and vomiting. He is on HIV therapy and has reportedly undetectable viral load. PHYSICAL EXAMINATION: VITAL SIGNS: Blood pressure 191/111, heart rate 100, respiratory rate 15, afebrile. GENERAL: No apparent distress, but notes abdominal discomfort. HEENT: Normocephalic and atraumatic. Conjunctivae pink. Oropharynx is clear. Fundi benign. NECK: Supple. No bruits. LUNGS: Clear. Jugular venous pressure elevated. CARDIAC: Regular rhythm and rate. Normal S1, S2 with a fourth heart sound. Palpable bruit over AV fistula. EXTREMITIES: With no edema. ABDOMEN: Benign. DIAGNOSTIC DATA: EKG with sinus tachycardia, no acute abnormalities, and left atrial enlargement noted. Chest x-ray with no acute process. IMPRESSION: Hypertensive urgency, malignant-range hypertension, end-stage renal disease, insulin-requiring diabetes mellitus with multiple complications as outlined above, acute on chronic diastolic congestive heart failure, acute myocardial ischemia, and probable component of uremia. PLAN: Cardiac monitoring. Antiemetics. Stepwise up-titration of antihypertensive regimen, which will also include topical therapy. Hemodialysis with ultrafiltration per senior technical recruiter. Continue statin drug. See orders and updated. Shamir Dunlap M.D. DR: Aldair JOB#: [id number] CC:
[2020-06-26] MEDS: DiphenhydrAMINE 50mg/ml Inj IVP PRN ×3 (03:43→17:10)
[2020-06-26] MEDS ORDERED: Dolutegravir Sodium 50mg tab ORAL SCH (09:00)
[2020-06-26] MEDS: Nephrovite tab (Rena-Vite) ORAL SCH (09:15)
[2020-06-26] MEDS: Imipramine 10mg tab ORAL SCH (09:15)
[2020-06-26] MEDS: Losartan 50mg tab ORAL SCH (10:40)
--- NOTE | 2020-06-26 10:45 | History and Physical Report ---
DATE OF ADMISSION: 06/25/2020 CHIEF COMPLAINT: Uncontrolled hypertension and hypertensive emergency. HISTORY OF PRESENT ILLNESS: The patient is a 29-year-old male. He has a history of end-stage renal disease, HIV, hypertension, diabetic gastroparesis, cyclic vomiting who presented with complaints of intractable nausea and vomiting, elevated high blood pressure. Over the last day, the patient has been unable to tolerate any orals. He has been vomiting his oral antihypertensives. In the emergency room, his systolic blood pressure was 200. He received multiple doses of oral and IV blood pressure medicines with minimal improvement. He is now admitted for further evaluation and care. PAST MEDICAL HISTORY: As above. PAST SURGICAL HISTORY: Includes an AV fistula. CURRENT MEDICATIONS: Reconciled and reviewed. ALLERGIES: Include aspirin. FAMILY HISTORY: Noncontributory. SOCIAL HISTORY: Negative for tobacco, ethanol, or drugs. REVIEW OF SYSTEMS: GENERAL: No fevers or chills. HEENT: No headaches or visual changes. CARDIOPULMONARY: No chest pain. Mild shortness of breath. GASTROINTESTINAL: Positive nausea and vomiting. No diarrhea. No melena. Questionable hematemesis. GENITOURINARY: No urgency or frequency. MUSCULOSKELETAL: No joint pain or swelling. NEUROLOGIC: No history of seizures. PHYSICAL EXAMINATION: VITAL SIGNS: Temperature 98.6, pulse of 102, blood pressure 207/118. GENERAL: The patient is well-developed, thin male, in no apparent distress. HEART: Regular rate and rhythm. LUNGS: Clear. ABDOMEN: Soft, nontender, and nondistended. EXTREMITIES: Without clubbing, cyanosis, or edema. There is a left upper extremity AV fistula with a good bruit. LABORATORY DATA: White count 7, hemoglobin 9, platelets of 229. Sodium 140, creatinine was 7. Natriuretic peptide was 2500. Coags were normal. ASSESSMENT: This is a 29-year-old male with a history of end-stage renal disease, HIV, hypertension, diabetes, diabetic gastroparesis admitted with complaints of intractable nausea and vomiting, and uncontrolled hypertension/hypertensive emergency due to inability to tolerate p.o. medications. PLAN: Admit to monitored bed. IV and oral blood pressure medications as tolerated. Cardiology and Renal consultation will be obtained. We will continue hemodialysis. GI consultation regarding intractable nausea and vomiting, mild hematemesis, suspect [place] tear. The patient will be given antiemetics as needed and PPI. Ben Ibarra M.D. DR: Jerson JOB#: [id number] CC:
[2020-06-26] MEDS: HydrALAZINE 50mg tab ORAL SCH ×3 (11:43→21:15)
--- NOTE | 2020-06-26 17:11 | Nephrology Progress Note ---
Assessment/Plan Assessment 1) ESRD 2) Still fluid overload 3) DM I Plan: Will do Dry UF tomorrow with fluid removal Subjective Subjective He had HD today with 4 L removal , still some sob Objective Objective Last 24 Hour Vital Signs Date Time Temp Pulse Resp B/P (MAP) Pulse Ox O2 Delivery O2 Flow Rate FiO2 06/26/20 16:00 97.7 89 20 160/89 (112) 99 06/26/20 16:00 89 06/26/20 14:44 166/97 06/26/20 14:00 166/97 (120) 06/26/20 13:00 174/102 (126) 06/26/20 12:01 225/112 06/26/20 12:00 97.7 99 20 245/110 (155) 96 06/26/20 12:00 94 06/26/20 11:43 207/103 06/26/20 10:40 200/110 06/26/20 09:16 94 179/107 06/26/20 09:00 Room Air 06/26/20 08:00 95 06/26/20 08:00 97.6 95 20 179/107 (131) 96 06/26/20 07:00 Room Air 06/26/20 06:16 97.5 06/26/20 05:22 200/110 06/26/20 05:22 200/110 06/26/20 04:00 97.5 102 20 200/110 (140) 96 06/26/20 04:00 102 06/26/20 02:02 98.0 06/26/20 00:54 Room Air 06/26/20 00:33 98.0 06/26/20 00:04 207/118 06/26/20 00:00 102 06/25/20 23:53 207/118 06/25/20 22:06 98.0 06/25/20 21:35 101 191/111 06/25/20 21:35 191/111 06/25/20 21:34 191/111 06/25/20 20:00 103 06/25/20 18:37 98.0 103 15 145/87 99 Room Air 06/25/20 18:00 98.6 102 16 168/98 98 Room Air Intake and Output 06/25/20 06/26/20 19:00 07:00 Intake Total 0 ml 500 ml Balance 0 ml 500 ml Intake Oral 0 ml 500 ml # Voids 1 Laboratory Tests 06/25/20 21:07: POC Whole Blood Glucose 227H 06/26/20 01:35: POC Whole Blood Glucose 341H 06/26/20 05:45: POC Whole Blood Glucose 137H 06/26/20 12:00: Hepatitis B Surface Antigen [Pending] 06/26/20 12:05: POC Whole Blood Glucose 214H 06/26/20 17:03: POC Whole Blood Glucose 236H Height (Feet): 5 Height (Inches): 9.00 Weight (Pounds): 162 General Appearance: WD/WN EENT: PERRL/EOMI Neck: non-tender Cardiovascular: normal rate, regular rhythm Respiratory/Chest: chest wall non-tender, lungs clear Abdomen: normal bowel sounds, non tender Extremities: normal range of motion, non-tender 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
--- NOTE | 2020-06-26 20:45 | Consultation ---
DATE OF CONSULTATION: 06/26/2020 GASTROENTEROLOGY CONSULTATION CONSULTING PHYSICIAN: Alexander Curry MD REFERRING PHYSICIAN: Ben Ibarra MD CHIEF COMPLAINT: I was asked to see this patient by Dr. Ben Ibarra for evaluation of vomiting. HISTORY OF PRESENT ILLNESS: The patient is a 29-year-old male with history of end-stage renal disease and HIV, who comes into the hospital due to nausea, vomiting, and hypertensive crisis. The patient has been seen before for several complaints over the past few months and his workup included an endoscopy in April, which showed some gastritis which was Helicobacter pylori-negative . He also had a CT scan, which did not show any major pathology. The ultrasound of the abdomen was likewise without any major pathology identified. The patient states that he has periods of nausea and periodic vomiting at home. The vomiting is 2 to 3 times a week and on this admission, vomiting have made him unable to tolerate his oral medications. He was then admitted to the hospital with hypertensive crisis. His vomitus is mainly clear and bilious. There were some streaks of blood noted. He denies any melena. He does have anemia and this has been attributed to his end-stage renal disease. His admission medications include twice-a-day Protonix. He was diagnosed with likely diabetic gastroparesis given his diabetes. He states that his sugar usually runs in the low 200 at home. His care was recently given as an outpatient by the [facility] team of doctors, but he comes to [facility] for admissions because of proximity to his house. PAST MEDICAL HISTORY: History of HIV positivity, type 1 diabetes since age 14, diabetic retinopathy, diabetic nephropathy and end-stage renal disease, diabetic neuropathy, presumed diabetic gastroparesis, gastritis, anemia, and status post AV fistula placement. FAMILY HISTORY: Noncontributory. SOCIAL HISTORY: The patient denies smoking or drinking. ALLERGIES: Aspirin. REVIEW OF SYSTEMS: Otherwise negative. PHYSICAL EXAMINATION: GENERAL: Well-developed, well-nourished man seen in his room undergoing dialysis. HEENT: Normocephalic and atraumatic. Oropharynx is clear. NECK: Supple. CHEST: Clear to auscultation. CARDIOVASCULAR: Revealed regular rate. ABDOMEN: Soft and mildly tender diffusely (which is the baseline for this patient). There is no guarding or rebound. EXTREMITIES: Revealed no edema. LABORATORY DATA: Noted. ASSESSMENT: This patient presents with periodic nausea and periodic vomiting. Based on the severity and duration of his diabetic gastroparesis and other major diabetic injuries including __ very likely has diabetic gastroparesis. Nuclear gastric emptying study can be done tomorrow to assess for this. Tight diabetic control to be given. In addition, proton pump inhibitor should be given long-term. He usually improves as an inpatient with management and he has already had an endoscopy recently. A repeat examination is not likely to alter management unless should his symptoms get worse. RECOMMENDATIONS: 1. Continue proton pump inhibitor. 2. P.O. Diet as tolerated. 3. gastric emptying study in the morning. 4. Check hemoglobin A1c tomorrow. Thank you for asking me to participate in the care of this patient. Alexander Curry M.D. DR: Zafar JOB#: [id number] CC: FRANTZ
[2020-06-26] MEDS: Levemir Flexpen SUBQ SCH (21:16)
[2020-06-26] MEDS ORDERED: Heparin Sod 1000 units/ml 10ml IV SCH (22:00)
[2020-06-27] VITALS: BP 203/103
[2020-06-27] MEDS: Morphine Sulfate 2mg/ml Inj(IV/IM USE ONLY) IVP PRN ×5 (00:13→20:57)
[2020-06-27] MEDS: DiphenhydrAMINE 50mg/ml Inj IVP PRN ×4 (00:13→18:45)
--- NOTE | 2020-06-27 03:04 | Cardiology Progress Note ---
Subjective DATE OF SERVICE: Jun 26, 2020 s/p HD with 4 liter UF today BP parameters remain significantly elevated yet improved Still with nausea and vomiting. Requesting IV pain meds. Objective Last 24 Hour Vital Signs Date Time Temp Pulse Resp B/P (MAP) Pulse Ox O2 Delivery O2 Flow Rate FiO2 06/27/20 00:43 97.7 06/27/20 00:13 207/103 06/27/20 00:00 92 06/27/20 00:00 96.5 95 20 203/103 (136) 99 06/26/20 21:15 188/111 06/26/20 21:15 92 188/111 06/26/20 21:00 Room Air 06/26/20 20:13 97.7 06/26/20 20:00 97.7 92 20 188/111 (136) 98 06/26/20 20:00 92 06/26/20 17:10 160/89 06/26/20 16:00 97.7 89 20 160/89 (112) 99 06/26/20 16:00 89 06/26/20 14:44 166/97 06/26/20 14:00 166/97 (120) 06/26/20 13:00 174/102 (126) 06/26/20 12:01 225/112 06/26/20 12:00 97.7 99 20 245/110 (155) 96 06/26/20 12:00 94 06/26/20 11:43 207/103 06/26/20 10:40 200/110 06/26/20 09:16 94 179/107 06/26/20 09:00 Room Air 06/26/20 08:00 95 06/26/20 08:00 97.6 95 20 179/107 (131) 96 06/26/20 07:00 Room Air 06/26/20 06:16 97.5 06/26/20 05:22 200/110 06/26/20 05:22 200/110 06/26/20 04:00 97.5 102 20 200/110 (140) 96 06/26/20 04:00 102 ROS: unchanged from my dictatiion of 06/25/20 HEENT: normal ENT inspection RHYTHM: NSR LUNGS: normal breath sounds, other - few rales CARDIAC: normal rate, regular rhythm, normal S1 and S2, gallop/S4 ABDOMEN: normal bowel sounds, non tender, soft, no organomegaly, no mass EXTREMITIES: normal range of motion, non-tender, trace edema Laboratory Tests Test 06/26/20 05:45 06/26/20 12:00 06/26/20 12:05 06/26/20 17:03 POC Whole Blood Glucose 137 MG/DL (74-106) H 214 MG/DL (74-106) H 236 MG/DL (74-106) H Hepatitis B Surface Antigen Pending Test 06/26/20 20:57 POC Whole Blood Glucose 176 MG/DL (74-106) H Microbiology Date/Time Source Procedure Growth Status 06/25/20 17:00 Rectum Received Assessment/Plan Assessment/Plan Uremia Hypertensive urgency Anginal syndrome Ac/chronic diastolic CHF Acute myocardial ischemia ESRD HIV + Titrate cardiovascular regimen Limits set on IV pain meds HD/UF for volume management Meds reviewed Outpatient compliance failures to be addressed. Shamir Dunlap MD Jun 27, 2020 03:04
[2020-06-27 04:00] VITALS: BP 191/108
[2020-06-27] MEDS: HydrALAZINE 50mg tab ORAL SCH ×3 (06:16→18:00)
[2020-06-27] MEDS: NovoLOG Insulin Flexpen SUBQ SCH ×3 (06:17→17:04)
[2020-06-27 07:24] LABS: BASOPHILS % (AUTO) 2.6 % (0.0-2.0); EOSINOPHILS % (AUTO) 4.1 % (0.0-3.0); HEMATOCRIT 30.2 % (42.0-52.0); HEMOGLOBIN 9.4 G/DL (14.2-18.0); LYMPHOCYTES % (AUTO) 17.2 % (20.0-45.0); MEAN CORPUSCULAR VOLUME 105 FL (80-99); MONOCYTES % (AUTO) 7.9 % (1.0-10.0); NEUTROPHILS % (AUTO) 68.3 % (45.0-75.0); PLATELET COUNT 183 K/UL (150-450); RED BLOOD COUNT 2.88 M/UL (4.70-6.10); RED CELL DISTRIBUTION WIDTH 15.2 % (11.6-14.8)
[2020-06-27 07:38] LABS: CREATININE 7.3 MG/DL (0.55-1.30)
[2020-06-27 08:00] VITALS: BP 180/108
[2020-06-27] MEDS: Imipramine 10mg tab ORAL SCH (08:44)
[2020-06-27] MEDS: Losartan 50mg tab ORAL SCH (08:44)
[2020-06-27] MEDS: Nephrovite tab (Rena-Vite) ORAL SCH (08:44)
[2020-06-27 12:00] VITALS: BP 164/92
--- NOTE | 2020-06-27 14:41 | General Progress Note ---
Subjective ROS Limited/Unobtainable: No Constitutional: Reports: malaise, weakness HEENT: Reports: no symptoms Cardiovascular: Reports: no symptoms Respiratory: Reports: no symptoms Gastrointestinal/Abdominal: Reports: nausea, vomiting Genitourinary: Reports: no symptoms Neurologic/Psychiatric: Reports: no symptoms Endocrine: Reports: no symptoms Hematologic/Lymphatic: Reports: no symptoms Allergies: Coded Allergies: ASPIRIN (Unverified Allergy, Unknown, 02/08/20) All Systems: reviewed and negative except above Subjective no events. no new complaints. same abd pain and nausea. BP trending up. no fevers or chills. no sob. difficult to control BP Objective Last 24 Hour Vital Signs Date Time Temp Pulse Resp B/P (MAP) Pulse Ox O2 Delivery O2 Flow Rate FiO2 06/27/20 12:57 164/92 06/27/20 12:00 83 06/27/20 12:00 164/92 06/27/20 12:00 97.2 84 20 164/92 (116) 98 06/27/20 09:00 Room Air 06/27/20 08:44 180/108 06/27/20 08:44 87 180/108 06/27/20 08:00 92 06/27/20 08:00 97.5 87 18 180/108 (132) 98 06/27/20 06:16 191/108 06/27/20 06:14 191/108 06/27/20 05:32 97.9 06/27/20 04:00 87 06/27/20 04:00 97.9 94 18 191/108 (135) 98 06/27/20 00:43 97.7 06/27/20 00:13 207/103 06/27/20 00:00 92 06/27/20 00:00 96.5 95 20 203/103 (136) 99 06/26/20 21:15 188/111 06/26/20 21:15 92 188/111 06/26/20 21:00 Room Air 06/26/20 20:13 97.7 06/26/20 20:00 97.7 92 20 188/111 (136) 98 06/26/20 20:00 92 06/26/20 17:10 160/89 06/26/20 16:00 97.7 89 20 160/89 (112) 99 06/26/20 16:00 89 06/26/20 14:44 166/97 Intake and Output 06/26/20 06/27/20 19:00 07:00 Intake Total 718 ml 500 ml Output Total 4000 ml Balance -3282 ml 500 ml Intake Oral 718 ml 500 ml Output Hemodialysis UF 4000 ml # Voids 1 Laboratory Tests 06/26/20 17:03: POC Whole Blood Glucose 236H 06/26/20 20:57: POC Whole Blood Glucose 176H 06/27/20 05:40: White Blood Count 5.0, Red Blood Count 2.88L, Hemoglobin 9.4L, Hematocrit 30.2L, Mean Corpuscular Volume 105H, Mean Corpuscular Hemoglobin 32.8H, Mean Corpuscular Hemoglobin Concent 31.3L, Red Cell Distribution Width 15.2H, Platelet Count 183, Mean Platelet Volume 6.4L, Neutrophils (%) (Auto) 68.3, Lymphocytes (%) (Auto) 17.2L, Monocytes (%) (Auto) 7.9, Eosinophils (%) (Auto) 4.1H, Basophils (%) (Auto) 2.6H, Creatinine 7.3H, Estimat Glomerular Filtration Rate 10.9, Hemoglobin A1c 8.5H, Hepatitis A IgM Antibody [Pending], Hepatitis B Surface Antigen [Pending], Hepatitis B Core IgM Antibody [Pending], Hepatitis C Antibody [Pending] 06/27/20 05:49: POC Whole Blood Glucose 222H 06/27/20 11:41: POC Whole Blood Glucose 138H Height (Feet): 5 Height (Inches): 9.00 Weight (Pounds): 162 General Appearance: WD/WN, alert EENT: normal ENT inspection Neck: non-tender, normal alignment Cardiovascular: normal peripheral pulses, normal rate, regular rhythm Respiratory/Chest: chest wall non-tender, lungs clear, normal breath sounds Abdomen: normal bowel sounds, non tender, soft, no organomegaly Edema: no edema noted Arm (L), no edema noted Arm (R) 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, alert, oriented x 3, responsive Assessment/Plan Problem List: (1) Renal failure ICD Codes: N19 - Unspecified kidney failure SNOMED: 30125134 (2) Hyperglycemia ICD Codes: R73.9 - Hyperglycemia, unspecified SNOMED: 52230570 (3) Uncontrolled hypertension ICD Codes: I10 - Essential (primary) hypertension SNOMED: 04264310, 60137961 (4) Abdominal pain ICD Codes: R10.9 - Unspecified abdominal pain SNOMED: 40396856 (5) Gastroparesis diabeticorum ICD Codes: E11.43 - Type 2 diabetes mellitus with diabetic autonomic (poly)neuropathy; K31.84 - Gastroparesis SNOMED: 80839936, 520372116 (6) Malignant hypertension (arteriolar nephrosclerosis) ICD Codes: I12.9 - Hypertensive chronic kidney disease with stage 1 through stage 4 chronic kidney disease, or unspecified chronic kidney disease SNOMED: 01435612 (7) Type 1 diabetes ICD Codes: E10.9 - Type 1 diabetes mellitus without complications SNOMED: 53357702 (8) ESRD on dialysis ICD Codes: N18.6 - End stage renal disease; Z99.2 - Dependence on renal dialysis SNOMED: 296602747 (9) Hypertensive emergency ICD Codes: I16.1 - Hypertensive emergency SNOMED: 534933270782991 Status: stable, progressing Assessment/Plan: BP rx up titrated Po pain rx HD per renal monitor bs bowel regime antiemetics cards and renal appreciated. Ben Ibarra MD Jun 27, 2020 14:41
--- NOTE | 2020-06-27 15:49 | Diagnostic Imaging Report ---
Indication: Vomiting, history of diabetic gastroparesis Technique: Patient ingested 1 mCi 99m technetium sulfur colloid in cooked egg with toast and water. Serial imaging obtained over the abdomen. Time activity curves were generated Comparison: none Findings: Slow gastric emptying is observed on the images. Time activity curves demonstrate that time to one half activity is visualized at the termination exam. Extrapolation calculates T 1/2 to be 271 minutes, well in excess of the upper limits of normal of 120 minutes. Impression: Evidence of delayed gastric emptying.
--- NOTE | 2020-06-27 15:52 | Nephrology Progress Note ---
Assessment/Plan Problem List: (1) HIV (human immunodeficiency virus infection) (2) ESRD (end stage renal disease) (3) Abdominal pain (4) Hypertensive emergency (5) Nausea & vomiting (6) Malignant hypertension (arteriolar nephrosclerosis) (7) Type 1 diabetes Plan up titrating hydralazine, clonidine, labetalo, fluid removal on dialysis Subjective Constitutional: Reports: weakness HEENT: Reports: no symptoms Genitourinary: Reports: no symptoms Neurologic/Psychiatric: Reports: no symptoms Objective Objective Last 24 Hour Vital Signs Date Time Temp Pulse Resp B/P (MAP) Pulse Ox O2 Delivery O2 Flow Rate FiO2 06/27/20 15:17 195/111 06/27/20 15:17 195/111 06/27/20 12:57 164/92 06/27/20 12:00 83 06/27/20 12:00 164/92 06/27/20 12:00 97.2 84 20 164/92 (116) 98 06/27/20 09:00 Room Air 06/27/20 08:44 180/108 06/27/20 08:44 87 180/108 06/27/20 08:00 92 06/27/20 08:00 97.5 87 18 180/108 (132) 98 06/27/20 06:16 191/108 06/27/20 06:14 191/108 06/27/20 05:32 97.9 06/27/20 04:00 87 06/27/20 04:00 97.9 94 18 191/108 (135) 98 06/27/20 00:43 97.7 06/27/20 00:13 207/103 06/27/20 00:00 92 06/27/20 00:00 96.5 95 20 203/103 (136) 99 06/26/20 21:15 188/111 06/26/20 21:15 92 188/111 06/26/20 21:00 Room Air 06/26/20 20:13 97.7 06/26/20 20:00 97.7 92 20 188/111 (136) 98 06/26/20 20:00 92 06/26/20 17:10 160/89 06/26/20 16:00 97.7 89 20 160/89 (112) 99 06/26/20 16:00 89 Intake and Output 06/26/20 06/27/20 19:00 07:00 Intake Total 718 ml 500 ml Output Total 4000 ml Balance -3282 ml 500 ml Intake Oral 718 ml 500 ml Output Hemodialysis UF 4000 ml # Voids 1 Laboratory Tests 06/26/20 17:03: POC Whole Blood Glucose 236H 06/26/20 20:57: POC Whole Blood Glucose 176H 06/27/20 05:40: White Blood Count 5.0, Red Blood Count 2.88L, Hemoglobin 9.4L, Hematocrit 30.2L, Mean Corpuscular Volume 105H, Mean Corpuscular Hemoglobin 32.8H, Mean Corpuscular Hemoglobin Concent 31.3L, Red Cell Distribution Width 15.2H, Plat elet Count 183, Mean Platelet Volume 6.4L, Neutrophils (%) (Auto) 68.3, Lymphocytes (%) (Auto) 17.2L, Monocytes (%) (Auto) 7.9, Eosinophils (%) (Auto) 4.1H, Basophils (%) (Auto) 2.6H, Creatinine 7.3H, Estimat Glomerular Filtration Rate 10.9, Hemoglobin A1c 8.5H, Hepatitis A IgM Antibody [Pending], Hepatitis B Surface Antigen [Pending], Hepatitis B Core IgM Antibody [Pending], Hepatitis C Antibody [Pending] 06/27/20 05:49: POC Whole Blood Glucose 222H 06/27/20 11:41: POC Whole Blood Glucose 138H Height (Feet): 5 Height (Inches): 9.00 Weight (Pounds): 162 General Appearance: no apparent distress, alert EENT: normal ENT inspection Neck: normal alignment Cardiovascular: normal rate, regular rhythm Respiratory/Chest: lungs clear Abdomen: non tender Extremities: non-tender, no edema 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
[2020-06-27 16:00] VITALS: BP 195/115
[2020-06-27 20:00] VITALS: BP 147/85
[2020-06-27] MEDS: Levemir Flexpen SUBQ SCH (20:58)
--- NOTE | 2020-06-27 21:02 | General Progress Note ---
Subjective Allergies: Coded Allergies: ASPIRIN (Unverified Allergy, Unknown, 02/08/20) Subjective feels better tolerating PO no vomiting less pain Gastric emptying study --> Gastroparesis Objective Last 24 Hour Vital Signs Date Time Temp Pulse Resp B/P (MAP) Pulse Ox O2 Delivery O2 Flow Rate FiO2 06/27/20 20:53 91 147/85 06/27/20 18:00 195/115 06/27/20 18:00 195/115 06/27/20 16:00 97.3 83 18 195/115 (141) 97 06/27/20 16:00 87 06/27/20 15:17 195/111 06/27/20 15:17 195/111 06/27/20 12:57 164/92 06/27/20 12:00 83 06/27/20 12:00 164/92 06/27/20 12:00 97.2 84 20 164/92 (116) 98 06/27/20 09:00 Room Air 06/27/20 08:44 180/108 06/27/20 08:44 87 180/108 06/27/20 08:00 92 06/27/20 08:00 97.5 87 18 180/108 (132) 98 06/27/20 06:16 191/108 06/27/20 06:14 191/108 06/27/20 05:32 97.9 06/27/20 04:00 87 06/27/20 04:00 97.9 94 18 191/108 (135) 98 06/27/20 00:43 97.7 06/27/20 00:13 207/103 06/27/20 00:00 92 06/27/20 00:00 96.5 95 20 203/103 (136) 99 06/26/20 21:15 188/111 06/26/20 21:15 92 188/111 06/26/20 21:00 Room Air Intake and Output 06/26/20 06/27/20 19:00 07:00 Intake Total 718 ml 500 ml Output Total 4000 ml Balance -3282 ml 500 ml Intake Oral 718 ml 500 ml Output Hemodialysis UF 4000 ml # Voids 1 Laboratory Tests 06/27/20 05:40: White Blood Count 5.0, Red Blood Count 2.88L, Hemoglobin 9.4L, Hematocrit 30.2L, Mean Corpuscular Volume 105H, Mean Corpuscular Hemoglobin 32.8H, Mean Corpuscular Hemoglobin Concent 31.3L, Red Cell Distribution Width 15.2H, Platelet Count 183, Mean Platelet Volume 6.4L, Neutrophils (%) (Auto) 68.3, Lymphocytes (%) (Auto) 17.2L, Monocytes (%) (Auto) 7.9, Eosinophils (%) (Auto) 4.1H, Basophils (%) (Auto) 2.6H, Creatinine 7.3H, Estimat Glomerular Filtration Rate 10.9, Hemoglobin A1c 8.5H, Hepatitis A IgM Antibody [Pending], Hepatitis B Surface Antigen [Pending], Hepatitis B Core IgM Antibody [Pending], Hepatitis C Antibody [Pending] 06/27/20 05:49: POC Whole Blood Glucose 222H 06/27/20 11:41: POC Whole Blood Glucose 138H 06/27/20 16:38: POC Whole Blood Glucose 312H Height (Feet): 5 Height (Inches): 9.00 Weight (Pounds): 162 Objective WDWN NCAT supple CTA RR Abd Soft ND no edema Assessment/Plan Status: stable, progressing Assessment/Plan: Assessment - Renal failure - DM - Gastroparesis - resolved N/V Recommendations - po as tolerated - PRN antiemetics - 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
[2020-06-28] VITALS: BP 203/110
[2020-06-28] MEDS: Morphine Sulfate 2mg/ml Inj(IV/IM USE ONLY) IVP PRN ×3 (00:52→09:29)
[2020-06-28] MEDS: DiphenhydrAMINE 50mg/ml Inj IVP PRN ×4 (00:52→19:05)
--- NOTE | 2020-06-28 01:36 | Cardiology Progress Note ---
Subjective DATE OF SERVICE: Jun 27, 2020 s/p HD with 4 liter UF yesterday. BP parameters remain significantly elevated at times still; overall trend better. Still with nausea and vomiting. Requesting IV pain meds. Objective Last 24 Hour Vital Signs Date Time Temp Pulse Resp B/P (MAP) Pulse Ox O2 Delivery O2 Flow Rate FiO2 06/28/20 01:22 97.3 06/28/20 00:51 203/110 06/28/20 00:00 98.1 91 20 203/110 (141) 99 06/28/20 00:00 91 06/27/20 21:27 97.3 06/27/20 21:00 Room Air 06/27/20 20:53 91 147/85 06/27/20 20:00 97.7 91 20 147/85 (105) 99 06/27/20 20:00 92 06/27/20 18:00 195/115 06/27/20 18:00 195/115 06/27/20 16:00 97.3 83 18 195/115 (141) 97 06/27/20 16:00 87 06/27/20 15:17 195/111 06/27/20 15:17 195/111 06/27/20 12:57 164/92 06/27/20 12:00 83 06/27/20 12:00 164/92 06/27/20 12:00 97.2 84 20 164/92 (116) 98 06/27/20 09:00 Room Air 06/27/20 08:44 180/108 06/27/20 08:44 87 180/108 06/27/20 08:00 92 06/27/20 08:00 97.5 87 18 180/108 (132) 98 06/27/20 06:16 191/108 06/27/20 06:14 191/108 06/27/20 05:32 97.9 06/27/20 04:00 87 06/27/20 04:00 97.9 94 18 191/108 (135) 98 ROS: unchanged from my dictatiion of 06/25/20 HEENT: normal ENT inspection RHYTHM: NSR LUNGS: normal breath sounds, other - few rales CARDIAC: normal rate, regular rhythm, normal S1 and S2, gallop/S4 ABDOMEN: normal bowel sounds, non tender, soft, no organomegaly, no mass EXTREMITIES: normal range of motion, non-tender, trace edema Laboratory Tests Test 06/27/20 05:40 06/27/20 05:49 06/27/20 11:41 06/27/20 16:38 White Blood Count 5.0 K/UL (4.8-10.8) Red Blood Count 2.88 M/UL (4.70-6.10) L Hemoglobin 9.4 G/DL (14.2-18.0) L Hematocrit 30.2 % (42.0-52.0) L Mean Corpuscular Volume 105 FL (80-99) H Mean Corpuscular Hemoglobin 32.8 PG (27.0-31.0) H Mean Corpuscular Hemoglobin Concent 31.3 G/DL (32.0-36.0) L Red Cell Distribution Width 15.2 % (11.6-14.8) H Platelet Count 183 K/UL (150-450) Mean Platelet Volume 6.4 FL (6.5-10.1) L Neutrophils (%) (Auto) 68.3 % (45.0-75.0) Lymphocytes (%) (Auto) 17.2 % (20.0-45.0) L Monocytes (%) (Auto) 7.9 % (1.0-10.0) Eosinophils (%) (Auto) 4.1 % (0.0-3.0) H Basophils (%) (Auto) 2.6 % (0.0-2.0) H Creatinine 7.3 MG/DL (0.55-1.30) H Estimat Glomerular Filtration Rate 10.9 mL/min (>60) Hemoglobin A1c 8.5 % (4.3-6.0) H Hepatitis A IgM Antibody Pending Hepatitis B Surface Antigen Pending Hepatitis B Core IgM Antibody Pending Hepatitis C Antibody Pending POC Whole Blood Glucose 222 MG/DL (74-106) H 138 MG/DL (74-106) H 312 MG/DL (74-106) H Test 06/27/20 20:55 POC Whole Blood Glucose Pending Microbiology Date/Time Source Procedure Growth Status 06/25/20 17:00 Rectum Received Assessment/Plan Assessment/Plan Uremia Hypertensive urgency Anginal syndrome Ac/chronic diastolic CHF Acute myocardial ischemia ESRD HIV + Titrate cardiovascular regimen Limits set on IV pain meds HD/UF for volume management Meds reviewed Outpatient compliance failures addressed. Shamir Dunlap MD Jun 28, 2020 01:36
[2020-06-28 04:00] VITALS: BP 190/111
[2020-06-28] MEDS: NovoLOG Insulin Flexpen SUBQ SCH ×3 (06:09→14:25)
[2020-06-28 07:42] LABS: BASOPHILS % (AUTO) 1.2 % (0.0-2.0); EOSINOPHILS % (AUTO) 2.5 % (0.0-3.0); HEMATOCRIT 30.9 % (42.0-52.0); HEMOGLOBIN 9.9 G/DL (14.2-18.0); LYMPHOCYTES % (AUTO) 12.5 % (20.0-45.0); MEAN CORPUSCULAR VOLUME 103 FL (80-99); MONOCYTES % (AUTO) 5.6 % (1.0-10.0); NEUTROPHILS % (AUTO) 78.3 % (45.0-75.0); PLATELET COUNT 179 K/UL (150-450); RED BLOOD COUNT 2.99 M/UL (4.70-6.10); WHITE BLOOD COUNT 6.5 K/UL (4.8-10.8)
[2020-06-28 07:46] LABS: CALCIUM 8.9 MG/DL (8.5-10.1); CREATININE 7.3 MG/DL (0.55-1.30)
[2020-06-28 08:00] VITALS: BP 173/97
[2020-06-28] MEDS ORDERED: Heparin Sod 1000 units/ml 10ml IV PRN (08:00)
[2020-06-28] MEDS: Nephrovite tab (Rena-Vite) ORAL SCH (08:55)
[2020-06-28] MEDS: Losartan 50mg tab ORAL SCH (08:55)
[2020-06-28] MEDS: Imipramine 10mg tab ORAL SCH (08:55)
[2020-06-28] MEDS: HydrALAZINE 50mg tab ORAL SCH ×2 (09:00→17:44)
[2020-06-28 12:00] VITALS: BP 194/98
--- NOTE | 2020-06-28 13:38 | Nephrology Progress Note ---
Assessment/Plan Problem List: (1) HIV (human immunodeficiency virus infection) (2) ESRD (end stage renal disease) (3) Abdominal pain (4) Hypertensive emergency (5) Nausea & vomiting (6) Malignant hypertension (arteriolar nephrosclerosis) (7) Type 1 diabetes Plan up titrating hydralazine, clonidine, labetalol, watch orthostatitic bp , fluid removal, seen on on dialysis Subjective HEENT: Reports: no symptoms Genitourinary: Reports: no symptoms Neurologic/Psychiatric: Reports: no symptoms Objective Objective Last 24 Hour Vital Signs Date Time Temp Pulse Resp B/P (MAP) Pulse Ox O2 Delivery O2 Flow Rate FiO2 06/28/20 11:30 173/97 06/28/20 09:00 173/97 06/28/20 08:55 173/97 06/28/20 08:53 87 173/97 06/28/20 08:25 Room Air 06/28/20 08:00 97.2 87 16 173/97 (122) 100 06/28/20 06:08 190/111 06/28/20 05:44 97.8 06/28/20 04:00 86 06/28/20 04:00 97.8 97 20 190/111 (137) 98 06/28/20 01:22 97.3 06/28/20 00:51 203/110 06/28/20 00:00 98.1 91 20 203/110 (141) 99 06/28/20 00:00 91 06/27/20 21:27 97.3 06/27/20 21:00 Room Air 06/27/20 20:53 91 147/85 06/27/20 20:00 97.7 91 20 147/85 (105) 99 06/27/20 20:00 92 06/27/20 18:00 195/115 06/27/20 18:00 195/115 06/27/20 16:00 97.3 83 18 195/115 (141) 97 06/27/20 16:00 87 06/27/20 15:17 195/111 06/27/20 15:17 195/111 l Intake and Output 06/27/20 06/28/20 19:00 07:00 Intake Total 700 ml Output Total 6500 ml Balance -5800 ml Intake Oral 700 ml Output Hemodialysis UF 6500 ml # Voids 1 Laboratory Tests 06/27/20 16:38: POC Whole Blood Glucose 312H 06/27/20 20:55: POC Whole Blood Glucose [Pending] 06/28/20 05:43: POC Whole Blood Glucose 400H 06/28/20 06:30: White Blood Count 6.5, Red Blood Count 2.99L, Hemoglobin 9.9L, Hematocrit 30.9L, Mean Corpuscular Volume 103H, Mean Corpuscular Hemoglobin 33.0H, Mean Corpuscular Hemoglobin Concent 31.9L, Red Cell Distribution Width 15.0H, Platelet Count 179, Mean Platelet Volume 7.0, Neutrophils (%) (Auto) 78.3H, Lymphocytes (%) (Auto) 12.5L, Monocytes (%) (Auto) 5.6, Eosinophils (%) (Auto) 2.5, Basophils (%) (Auto) 1.2, Sodium Level 126L, Potassium Level 6.0*H, Chloride Level 90L, Carbon Dioxide Level 26, Anion Gap 10, Blood Urea Nitrogen 48H, Creatinine 7.3H, Estimat Glomerular Filtration Rate 10.9, Glucose Level 469H, Calcium Level 8.9 06/28/20 11:09: POC Whole Blood Glucose 314H Height (Feet): 5 Height (Inches): 9.00 Weight (Pounds): 162 General Appearance: alert EENT: normal ENT inspection Cardiovascular: normal rate, regular rhythm 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
--- NOTE | 2020-06-28 14:28 | General Progress Note ---
Subjective ROS Limited/Unobtainable: No Constitutional: Reports: malaise, weakness HEENT: Reports: no symptoms Cardiovascular: Reports: no symptoms Respiratory: Reports: no symptoms Gastrointestinal/Abdominal: Reports: abdominal pain, nausea Genitourinary: Reports: no symptoms Neurologic/Psychiatric: Reports: no symptoms Endocrine: Reports: no symptoms Hematologic/Lymphatic: Reports: anemia Allergies: Coded Allergies: ASPIRIN (Unverified Allergy, Unknown, 02/08/20) All Systems: reviewed and negative except above Subjective still with elevated bp. d/w staff. pt compliant with meds. BS still high. still with abd pain. requiring iv pain meds around the clock. no nausea or vomiting. no fevers Objective Last 24 Hour Vital Signs Date Time Temp Pulse Resp B/P (MAP) Pulse Ox O2 Delivery O2 Flow Rate FiO2 06/28/20 11:30 173/97 06/28/20 09:00 173/97 06/28/20 08:55 173/97 06/28/20 08:53 87 173/97 06/28/20 08:25 Room Air 06/28/20 08:00 97.2 87 16 173/97 (122) 100 06/28/20 06:08 190/111 06/28/20 05:44 97.8 06/28/20 04:00 86 06/28/20 04:00 97.8 97 20 190/111 (137) 98 06/28/20 01:22 97.3 06/28/20 00:51 203/110 06/28/20 00:00 98.1 91 20 203/110 (141) 99 06/28/20 00:00 91 06/27/20 21:27 97.3 06/27/20 21:00 Room Air 06/27/20 20:53 91 147/85 06/27/20 20:00 97.7 91 20 147/85 (105) 99 06/27/20 20:00 92 06/27/20 18:00 195/115 06/27/20 18:00 195/115 06/27/20 16:00 97.3 83 18 195/115 (141) 97 06/27/20 16:00 87 06/27/20 15:17 195/111 06/27/20 15:17 195/111 Intake and Output 06/27/20 06/28/20 19:00 07:00 Intake Total 700 ml Output Total 6500 ml Balance -5800 ml Intake Oral 700 ml Output Hemodialysis UF 6500 ml # Voids 1 Laboratory Tests 06/27/20 16:38: POC Whole Blood Glucose 312H 06/27/20 20:55: POC Whole Blood Glucose [Pending] 06/28/20 05:43: POC Whole Blood Glucose 400H 06/28/20 06:30: White Blood Count 6.5, Red Blood Count 2.99L, Hemoglobin 9.9L, Hematocrit 30.9L, Mean Corpuscular Volume 103H, Mean Corpuscular Hemoglobin 33.0H, Mean Corpuscular Hemoglobin Concent 31.9L, Red Cell Distribution Width 15.0H, Platelet Count 179, Mean Platelet Volume 7.0, Neutrophils (%) (Auto) 78.3H, Lymphocytes (%) (Auto) 12.5L, Monocytes (%) (Auto) 5.6, Eosinophils (%) (Auto) 2.5, Basophils (%) (Auto) 1.2, Sodium Level 126L, Potassium Level 6.0*H, Chloride Level 90L, Carbon Dioxide Level 26, Anion Gap 10, Blood Urea Nitrogen 48H, Creatinine 7.3H, Estimat Glomerular Filtration Rate 10.9, Glucose Level 469H, Calcium Level 8.9 06/28/20 11:09: POC Whole Blood Glucose 314H Height (Feet): 5 Height (Inches): 9.00 Weight (Pounds): 162 Objective General Appearance: WD/WN, alert EENT: normal ENT inspection Neck: non-tender, normal alignment Cardiovascular: normal peripheral pulses, normal rate, regular rhythm Respiratory/Chest: chest wall non-tender, lungs clear, normal breath sounds Abdomen: normal bowel sounds, non tender, soft, no organomegaly Edema: no edema noted Arm (L), no edema noted Arm (R) 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 grossly normal, alert, oriented x 3, responsive Assessment/Plan Problem List: (1) Renal failure ICD Codes: N19 - Unspecified kidney failure SNOMED: 26357681 (2) Hyperglycemia ICD Codes: R73.9 - Hyperglycemia, unspecified SNOMED: 72242277 (3) Uncontrolled hypertension ICD Codes: I10 - Essential (primary) hypertension SNOMED: 79884386, 73936060 (4) Abdominal pain ICD Codes: R10.9 - Unspecified abdominal pain SNOMED: 38489663 (5) Gastroparesis diabeticorum ICD Codes: E11.43 - Type 2 diabetes mellitus with diabetic autonomic (poly)neuropathy; K31.84 - Gastroparesis SNOMED: 94470102, 100960591 (6) Malignant hypertension (arteriolar nephrosclerosis) ICD Codes: I12.9 - Hypertensive chronic kidney disease with stage 1 through stage 4 chronic kidney disease, or unspecified chronic kidney disease SNOMED: 28802083 (7) Type 1 diabetes ICD Codes: E10.9 - Type 1 diabetes mellitus without complications SNOMED: 26596407 (8) ESRD on dialysis ICD Codes: N18.6 - End stage renal disease; Z99.2 - Dependence on renal di alysis SNOMED: 499702260 (9) Hypertensive emergency ICD Codes: I16.1 - Hypertensive emergency SNOMED: 294808275765087 Status: stable, progressing Assessment/Plan: BP rx up titrated dc iv pain meds Po pain rx HD per renal monitor bs bowel regime antiemetics cards and renal appreciated. gastric emptying study reviewed Ben Ibarra MD Jun 28, 2020 14:28
[2020-06-28] MEDS ORDERED: Miralax 17gm pkt ORAL PRN (14:30)
[2020-06-28 16:00] VITALS: BP 185/106
[2020-06-28] MEDS: MS Contin 15mg tab ORAL SCH ×2 (16:23→21:38)
[2020-06-28 20:00] VITALS: BP 140/85
[2020-06-28] MEDS: Levemir Flexpen SUBQ SCH (21:00)
--- NOTE | 2020-06-28 21:45 | General Progress Note ---
Subjective Allergies: Coded Allergies: ASPIRIN (Unverified Allergy, Unknown, 02/08/20) Subjective feels better tolerating PO no vomiting less pain Gastric emptying study --> Gastroparesis Objective Last 24 Hour Vital Signs Date Time Temp Pulse Resp B/P (MAP) Pulse Ox O2 Delivery O2 Flow Rate FiO2 06/28/20 21:38 84 140/85 06/28/20 17:44 173/97 06/28/20 17:44 173/97 06/28/20 16:00 97.3 95 18 185/106 (132) 99 06/28/20 16:00 94 06/28/20 12:00 85 06/28/20 12:00 97.8 102 20 194/98 (130) 98 06/28/20 11:30 173/97 06/28/20 09:00 173/97 06/28/20 08:55 173/97 06/28/20 08:53 87 173/97 06/28/20 08:25 Room Air 06/28/20 08:00 87 06/28/20 08:00 97.2 87 16 173/97 (122) 100 06/28/20 06:08 190/111 06/28/20 05:44 97.8 06/28/20 04:00 86 06/28/20 04:00 97.8 97 20 190/111 (137) 98 06/28/20 01:22 97.3 06/28/20 00:51 203/110 06/28/20 00:00 98.1 91 20 203/110 (141) 99 06/28/20 00:00 91 Intake and Output 06/27/20 06/28/20 19:00 07:00 Intake Total 700 ml Output Total 6500 ml Balance -5800 ml Intake Oral 700 ml Output Hemodialysis UF 6500 ml # Voids 1 Laboratory Tests 06/28/20 05:43: POC Whole Blood Glucose 400H 06/28/20 06:30: White Blood Count 6.5, Red Blood Count 2.99L, Hemoglobin 9.9L, Hematocrit 30.9L, Mean Corpuscular Volume 103H, Mean Corpuscular Hemoglobin 33.0H, Mean Corpuscular Hemoglobin Concent 31.9L, Red Cell Distribution Width 15.0H, Platelet Count 179, Mean Platelet Volume 7.0, Neutrophils (%) (Auto) 78.3H, Lymphocytes (%) (Auto) 12.5L, Monocytes (%) (Auto) 5.6, Eosinophils (%) (Auto) 2.5, Basophils (%) (Auto) 1.2, Sodium Level 126L, Potassium Level 6.0*H, Chloride Level 90L, Carbon Dioxide Level 26, Anion Gap 10, Blood Urea Nitrogen 48H, Creatinine 7.3H, Estimat Glomerular Filtration Rate 10.9, Glucose Level 469H, Calcium Level 8.9 06/28/20 11:09: POC Whole Blood Glucose 314H 06/28/20 16:10: POC Whole Blood Glucose 215H Height (Feet): 5 Height (Inches): 9.00 Weight (Pounds): 162 Objective WDWN NCAT supple CTA RR Abd Soft ND no edema Assessment/Plan Status: stable, progressing Assessment/Plan: Assessment - Renal failure - DM - Gastroparesis - resolved N/V Recommendations - po as tolerated - PRN antiemetics - may need prison prokinetics - minimize narcotics Alexander Curry MD Jun 28, 2020 21:45
[2020-06-29] VITALS: BP 156/92
[2020-06-29] MEDS: DiphenhydrAMINE 50mg/ml Inj IVP PRN ×3 (00:56→13:29)
--- NOTE | 2020-06-29 01:08 | Cardiology Progress Note ---
Subjective DATE OF SERVICE: Jun 28, 2020 s/p HD today. BP parameters remain significantly elevated at times still; overall trend better. Compliant with BP meds. Still with nausea and vomiting. Requesting IV pain meds. Objective Last 24 Hour Vital Signs Date Time Temp Pulse Resp B/P (MAP) Pulse Ox O2 Delivery O2 Flow Rate FiO2 06/29/20 00:56 156/92 06/28/20 22:09 97.2 06/28/20 21:38 84 140/85 06/28/20 21:00 Room Air 06/28/20 20:00 97.7 84 18 140/85 (103) 97 06/28/20 17:44 173/97 06/28/20 17:44 173/97 06/28/20 16:00 97.3 95 18 185/106 (132) 99 06/28/20 16:00 94 06/28/20 12:00 85 06/28/20 12:00 97.8 102 20 194/98 (130) 98 06/28/20 11:30 173/97 06/28/20 09:00 173/97 06/28/20 08:55 173/97 06/28/20 08:53 87 173/97 06/28/20 08:25 Room Air 06/28/20 08:00 87 06/28/20 08:00 97.2 87 16 173/97 (122) 100 06/28/20 06:08 190/111 06/28/20 05:44 97.8 06/28/20 04:00 86 06/28/20 04:00 97.8 97 20 190/111 (137) 98 06/28/20 01:22 97.3 ROS: unchanged from my dictatiion of 06/25/20 HEENT: normal ENT inspection RHYTHM: NSR LUNGS: normal breath sounds, other - few rales CARDIAC: normal rate, regular rhythm, normal S1 and S2, gallop/S4 ABDOMEN: normal bowel sounds, non tender, soft, no organomegaly, no mass EXTREMITIES: normal range of motion, non-tender, trace edema Laboratory Tests Test 06/28/20 05:43 06/28/20 06:30 06/28/20 11:09 06/28/20 16:10 POC Whole Blood Glucose 400 MG/DL (74-106) H 314 MG/DL (74-106) H 215 MG/DL (74-106) H White Blood Count 6.5 K/UL (4.8-10.8) Red Blood Count 2.99 M/UL (4.70-6.10) L Hemoglobin 9.9 G/DL (14.2-18.0) L Hematocrit 30.9 % (42.0-52.0) L Mean Corpuscular Volume 103 FL (80-99) H Mean Corpuscular Hemoglobin 33.0 PG (27.0-31.0) H Mean Corpuscular Hemoglobin Concent 31.9 G/DL (32.0-36.0) L Red Cell Distribution Width 15.0 % (11.6-14.8) H Platelet Count 179 K/UL (150-450) Mean Platelet Volume 7.0 FL (6.5-10.1) Neutrophils (%) (Auto) 78.3 % (45.0-75.0) H Lymphocytes (%) (Auto) 12.5 % (20.0-45.0) L Monocytes (%) (Auto) 5.6 % (1.0-10.0) Eosinophils (%) (Auto) 2.5 % (0.0-3.0) Basophils (%) (Auto) 1.2 % (0.0-2.0) Sodium Level 126 MMOL/L (136-145) L Potassium Level 6.0 MMOL/L (3.5-5.1) *H Chloride Level 90 MMOL/L (98-107) L Carbon Dioxide Level 26 MMOL/L (21-32) Anion Gap 10 mmol/L (5-15) Blood Urea Nitrogen 48 mg/dL (7-18) H Creatinine 7.3 MG/DL (0.55-1.30) H Estimat Glomerular Filtration Rate 10.9 mL/min (>60) Glucose Level 469 MG/DL (74-106) H Calcium Level 8.9 MG/DL (8.5-10.1) Assessment/Plan Assessment/Plan Uremia Hypertensive urgency - with improved, but still suboptimal BP control. Anginal syndrome Ac/chronic diastolic CHF Acute myocardial ischemia ESRD HIV + Titrate cardiovascular regimen further Limits set on IV pain meds HD/UF for volume management Meds reviewed Outpatient compliance failures previously addressed. Shamir Dunlap MD Jun 29, 2020 01:08
[2020-06-29 04:00] VITALS: BP 137/76
[2020-06-29] MEDS: HYDROcodone/Acetamin 10/325 tab ORAL PRN (04:14)
[2020-06-29] MEDS: NovoLOG Insulin Flexpen SUBQ SCH ×2 (06:30→11:30)
[2020-06-29 08:00] VITALS: BP 130/80
[2020-06-29] MEDS: HydrALAZINE 50mg tab ORAL SCH (09:00)
[2020-06-29] MEDS: Imipramine 10mg tab ORAL SCH ×2 (09:00→10:25)
[2020-06-29] MEDS: Nephrovite tab (Rena-Vite) ORAL SCH ×2 (09:00→10:24)
[2020-06-29] MEDS: Losartan 50mg tab ORAL SCH ×2 (09:00→10:24)
[2020-06-29] MEDS: MS Contin 15mg tab ORAL SCH (09:00)
[2020-06-29 11:30] VITALS: BP 144/76
[2020-06-29 12:00] VITALS: BP 144/76
--- NOTE | 2020-06-29 14:21 | Nephrology Progress Note ---
Assessment/Plan Problem List: (1) HIV (human immunodeficiency virus infection) (2) ESRD (end stage renal disease) (3) Abdominal pain (4) Hypertensive emergency (5) Nausea & vomiting (6) Malignant hypertension (arteriolar nephrosclerosis) (7) Type 1 diabetes Plan up titrating hydralazine, clonidine, labetalol, watch orthostatitic bp , fluid removal, dialysis tts Subjective Constitutional: Reports: weakness HEENT: Reports: no symptoms Genitourinary: Reports: no symptoms Neurologic/Psychiatric: Reports: no symptoms Objective Objective Last 24 Hour Vital Signs Date Time Temp Pulse Resp B/P (MAP) Pulse Ox O2 Delivery O2 Flow Rate FiO2 06/29/20 12:00 97.8 79 20 144/76 (98) 97 06/29/20 12:00 79 06/29/20 11:35 144/76 06/29/20 11:30 144/76 (98) 06/29/20 10:24 130/80 06/29/20 09:00 87 142/92 06/29/20 09:00 142/92 06/29/20 08:00 97.5 81 20 130/80 (97) 98 06/29/20 08:00 86 06/29/20 06:26 137/76 06/29/20 04:44 97.5 06/29/20 04:00 97.0 83 18 137/76 (96) 100 06/29/20 04:00 80 06/29/20 00:56 156/92 06/29/20 00:00 83 06/29/20 00:00 97.5 82 18 156/92 (113) 96 06/28/20 22:09 97.2 06/28/20 21:38 84 140/85 06/28/20 21:00 Room Air 06/28/20 20:00 97.7 84 18 140/85 (103) 97 06/28/20 17:44 173/97 06/28/20 17:44 173/97 06/28/20 16:00 97.3 95 18 185/106 (132) 99 06/28/20 16:00 94 Intake and Output 06/28/20 06/29/20 19:00 07:00 Intake Total 320 ml Output Total 2500 ml Balance -2180 ml Intake Oral 320 ml Output Hemodialysis UF 2500 ml Laboratory Tests 06/28/20 16:10: POC Whole Blood Glucose 215H 06/29/20 11:36: POC Whole Blood Glucose 116H Height (Feet): 5 Height (Inches): 9.00 Weight (Pounds): 162 General Appearance: no apparent distress, alert EENT: normal ENT inspection Neck: normal alignment Cardiovascular: normal rate Respiratory/Chest: lungs clear Abdomen: non tender, soft Extremities: no edema 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
[2020-06-29 16:00] VITALS: BP 139/82
[2020-06-29] MEDS ORDERED: LABETALOL HCL200 MG ORAL (16:34)
[2020-06-29] MEDS ORDERED: MORPHINE IR15 MG ORAL (16:37)
[2020-06-29] MEDS ORDERED: CLONIDINE HCL0.3 MG PO (16:39)
--- NOTE | 2020-06-29 18:57 | Cardiology Progress Note ---
Subjective DATE OF SERVICE: Jun 29, 2020 Tolerating HD/UF sessions well. BP parameters now predominantly well controlled. Compliant with BP meds now. Nausea and vomiting resolved. Objective Last 24 Hour Vital Signs Date Time Temp Pulse Resp B/P (MAP) Pulse Ox O2 Delivery O2 Flow Rate FiO2 06/29/20 16:00 97.6 78 16 139/82 (101) 100 06/29/20 16:00 78 06/29/20 12:00 97.8 79 20 144/76 (98) 97 06/29/20 12:00 79 06/29/20 11:35 144/76 06/29/20 11:30 144/76 (98) 06/29/20 10:24 130/80 06/29/20 09:00 Room Air 06/29/20 09:00 87 142/92 06/29/20 09:00 142/92 06/29/20 08:00 97.5 81 20 130/80 (97) 98 06/29/20 08:00 86 06/29/20 06:26 137/76 06/29/20 04:44 97.5 06/29/20 04:00 97.0 83 18 137/76 (96) 100 06/29/20 04:00 80 06/29/20 00:56 156/92 06/29/20 00:00 83 06/29/20 00:00 97.5 82 18 156/92 (113) 96 06/28/20 22:09 97.2 06/28/20 21:38 84 140/85 06/28/20 21:00 Room Air 06/28/20 20:00 97.7 84 18 140/85 (103) 97 ROS: unchanged from my dictatiion of 06/25/20 HEENT: normal ENT inspection RHYTHM: NSR LUNGS: normal breath sounds, other - few rales CARDIAC: normal rate, regular rhythm, normal S1 and S2, gallop/S4 ABDOMEN: normal bowel sounds, non tender, soft, no organomegaly, no mass EXTREMITIES: normal range of motion, non-tender, trace edema Laboratory Tests Test 06/29/20 11:36 06/29/20 16:43 POC Whole Blood Glucose 116 MG/DL (74-106) H 126 MG/DL (74-106) H Assessment/Plan Assessment/Plan Uremia Hypertensive urgency - with improved BP control. Anginal syndrome precipitated by uncontrolled HTN. Ac/chronic diastolic CHF Acute myocardial ischemia resolved ESRD HIV + Maintain current cardiovascular regimen Limits set on outpatient pain meds HD/UF for volume management - 3x/wk; compliance stressed. Meds reviewed for discharge. Shamir Dunlap MD Jun 29, 2020 18:57
--- NOTE | 2020-06-29 19:45 | Discharge Summary ---
DATE OF ADMISSION: 06/25/2020 DATE OF DISCHARGE: 06/29/2020 ADMISSION DIAGNOSES: 1. Hypertensive emergency. 2. Diabetes out of control. 3. End-stage renal disease. 4. Intractable nausea and vomiting. 5. Gastroparesis. 6. Diabetes. DISCHARGE DIAGNOSES: 1. Hypertensive emergency. 2. Diabetes out of control. 3. End-stage renal disease. 4. Intractable nausea and vomiting. 5. Gastroparesis. 6. Diabetes. HOSPITAL COURSE: Patient was admitted with complaints of uncontrolled hypertension, intractable nausea and vomiting. He was admitted. He required IV blood pressure medications for blood pressure control. He also required IV pain medications for pain management. His nausea and vomiting gradually improved. Antihypertensive regimen was adjusted by the tire fabric inspector. On discharge, patient was tolerating PO's. Blood pressure is much better controlled. Blood sugars are stable. Patient will be discharged home with follow up in 1 to 2 weeks. DISCHARGE MEDICATIONS: Please see discharge medication list for discharge medications. DIET: Cardiac renal diabetic diet. ACTIVITIES: Ad-chris. Bne Ibarra M.D. DR: SAMINA JOB#: [id number] CC:
--- NOTE | 2020-06-29 21:43 | General Progress Note ---
Subjective Allergies: Coded Allergies: ASPIRIN (Unverified Allergy, Unknown, 02/08/20) Subjective feels better tolerating PO no vomiting Objective Last 24 Hour Vital Signs Date Time Temp Pulse Resp B/P (MAP) Pulse Ox O2 Delivery O2 Flow Rate FiO2 06/29/20 16:00 97.6 78 16 139/82 (101) 100 06/29/20 16:00 78 06/29/20 12:00 97.8 79 20 144/76 (98) 97 06/29/20 12:00 79 06/29/20 11:35 144/76 06/29/20 11:30 144/76 (98) 06/29/20 10:24 130/80 06/29/20 09:00 Room Air 06/29/20 09:00 87 142/92 06/29/20 09:00 142/92 06/29/20 08:00 97.5 81 20 130/80 (97) 98 06/29/20 08:00 86 06/29/20 06:26 137/76 06/29/20 04:44 97.5 06/29/20 04:00 97.0 83 18 137/76 (96) 100 06/29/20 04:00 80 06/29/20 00:56 156/92 06/29/20 00:00 83 06/29/20 00:00 97.5 82 18 156/92 (113) 96 06/28/20 22:09 97.2 Intake and Output 06/28/20 06/29/20 19:00 07:00 Intake Total 320 ml Output Total 2500 ml Balance -2180 ml Intake Oral 320 ml Output Hemodialysis UF 2500 ml Laboratory Tests 06/29/20 11:36: POC Whole Blood Glucose 116H 06/29/20 16:43: POC Whole Blood Glucose 126H Height (Feet): 5 Height (Inches): 9.00 Weight (Pounds): 162 Objective WDWN NCAT supple CTA RR Abd Soft ND no edema Assessment/Plan Status: stable, progressing Assessment/Plan: Assessment - Renal failure - DM - Gastroparesis - resolved N/V Recommendations - po as tolerated - PRN antiemetics - may need fpc prokinetics - minimize narcotics Alexander Curry MD Jun 29, 2020 21:43
== END 2020-06-29 17:03 | disposition home or self-care (01) | DRG 304 ==
LOC: EDBD 15:40 → EDBEDREQ 18:15 → EMR 18:32 → 2E 18:39
PROC: 5A1D70Z Performance of Urinary Filtration, Intermittent, Less than 6 Hours Per Day (ICD-10-PCS; principal; 2020-06-26)
DX: I16.0 Hypertensive urgency (principal); N18.6 End stage renal disease; I50.33 Acute on chronic diastolic (congestive) heart failure; E10.65 Type 1 diabetes mellitus with hyperglycemia; I13.2 Hypertensive heart and chronic kidney disease with heart failure and with stage 5 chronic kidney disease, or end stage renal disease; K31.84 Gastroparesis; E10.22 Type 1 diabetes mellitus with diabetic chronic kidney disease; E10.43 Type 1 diabetes mellitus with diabetic autonomic (poly)neuropathy; I51.3 Intracardiac thrombosis, not elsewhere classified; Z88.6 Allergy status to analgesic agent; Z79.4 Long term (current) use of insulin; E87.79 Other fluid overload; Z91.15 Patient's noncompliance with renal dialysis; E10.319 Type 1 diabetes mellitus with unspecified diabetic retinopathy without macular edema; E78.5 Hyperlipidemia, unspecified; D64.9 Anemia, unspecified; I20.9 Angina pectoris, unspecified; Z99.2 Dependence on renal dialysis
CPT/HCPCS: 36415; 71045; 78264; 80048; 80053; 82565; 82962; 83036; 83735; 83880; 84484; 85025; 85610; 85730; 86705; 86706; 86709; 86803; 87081; 87340; 93005; 96374; 96375; 96376; 99285; J1815; J2405; S5561

== ENCOUNTER 2020-08-01 13:01 | Inpatient (IN) | payer MEDICARE, OTHER ==
[~2020-08-01] VITALS: Ht 165.1 cm; Wt 63.5 kg
[~2020-08-01 13:01] MED LIST changes: +ATORVASTATIN CA10 MG ORAL; +BENAZEPRIL HCL10 MG ORAL; +CATAPRES0.1 MG ORAL; +CLONIDINE HCL0.3 MG PO; +FUROSEMIDE20 M1 ORAL; +HYDRALAZINE HCL10 MG ORAL; +KEPPRA500 M4 ORAL; +LABETALOL HCL200 MG ORAL; +MORPHINE IR15 MG ORAL; +NIFEDIPINE10 MG ORAL
[2020-08-01 13:05] VITALS: BP 197/129
[2020-08-01] MEDS ORDERED: Nitroglycerin 2% oint pkt TOPIC ONE (13:15)
[2020-08-01] MEDS ORDERED: Morphine Sulfate 4mg/ml Inj (IV USE ONLY) IVP ONE (13:15)
--- NOTE | 2020-08-01 13:15 | Emergency Room Report ---
History of Present Illness General Chief Complaint: Chest Pain Source: Patient (Rebel Pineda MD) Present Illness HPI Disclaimer: Please note that this report is being documented using DRAGON technology. This can lead to erroneous entry secondary to incorrect interpretat ion by the dictating instrument. HPI: 30-year-old male history of ESRD hemodialysis MTRS, gastroparesis, insulin- dependent diabetes, hypertension presents for evaluation of chest pain and vomiting. Patient states he has been feeling unwell for several days. Reports generalized chest pain most concentrated over the sternum does not radiate. Feels like a pressure. Unable take his hypertension medications over the past 2 days due to persistent emesis. He has a history of gastroparesis. Pain exacerbated by bending and twisting motions as well as deep inspiration. Denies cough or congestion. Denies fever or chills. Tested negative for COVID-19 on 07/28 according to patient. Recent stress test 2 weeks ago at [facility] reportedly unremarkable. He reports bright red blood in his vomitus. Denies diarrhea or hematochezia. Full course of dialysis prior to arrival. T akes morphine and Dilaudid at home for chronic pain. PMH: ESRD, hypertension, gastroparesis, diabetes PSH: Fistula Allergies: Aspirin Social Hx: Reviewed (Rebel Pineda MD) Allergies: Coded Allergies: ASPIRIN (Unverified Allergy, Unknown, 02/08/20) COVID-19 Screening Contact w/high risk pt: No Recent Travel to affected area: No Experienced COVID-19 symptoms?: No COVID-19 Testing performed STRUCTURAL IRONWORKER: No (Rebel Pineda MD) Nursing Documentation-PMH Hx Cardiac Problems: Yes Hx Hypertension: Yes Hx Diabetes: Yes Hx Cancer: No Hx Gastrointestinal Problems: No Hx Dialysis: Yes - dialysis T TH Sat, CKD Hx Neurological Problems: No Hx Seizures: Yes (Rebel Pineda MD) Review of Systems All Other Systems: negative except mentioned in HPI (Rebel Pineda MD) Physical Exam Vital Signs Date Time Temp Pulse Resp B/P (MAP) Pulse Ox O2 Delivery O2 Flow Rate FiO2 08/01/20 13:01 98.8 110 18 197/129 (151) 98 Room Air General: Awake and alert, appears uncomfortable HEENT: NC/AT. EOMI. moist mucous membranes Cardiovascular: Tachycardic, no murmur appreciated. Fistula palpable thrill right upper extremity Resp: Normal work of breathing. No cough, wheezing or crackles appreciated Abdomen: Abdomen is soft, nondistended. Tender to palpation in the epigastrium. Skin: Intact. No abrasions, laceration or rash over the exposed skin MSK: Normal tone and bulk. Moving all extremities. No obvious deformity. Neuro: Awake and alert. Mentating appropriately. (Rebel Pineda MD) Procedures Critical Care Time Critical Care Time Total critical care time: Approximately 45 minutes Due to a high probability of clinically significant, life threatening deterioration, the patient required the highest level of preparedness to intervene emergently and I personally spent this critical care time directly and personally managing the patient. This critical care time included obtaining a history, examining the patient, pulse oximetry, ordering and reviewing studies, ordering treatments, evaluating response to treatment and updating management plan as needed, frequent reassessment and discussion with other providers as well as arranging for ultimate disposition. This critical to care time was performed to assess and manage the high probability of life-threatening deterioration that could result in multiorgan failure. This critical care time is separate from the separately billable procedures and treating other patients. (Rebel Pineda MD) Medical Decision Making Diagnostic Impression: Primary Impression: Malignant hypertension (arteriolar nephrosclerosis) Additional Impressions: Abdominal pain Chest pain ER Course 30-year-old male history of ESRD on hemodialysis presents for evaluation of chest pain and vomiting. Differential includes found this to ACS, arrhythmia, hypertensive urgency, hypertensive emergency, gastritis, gastroenteritis, pancreatitis, cholecystitis, bowel obstruction, gastroparesis among others. EKG shows some hyperacute T waves. Labs are pending. Chest x-ray shows no infiltrate. Abdominal x-ray does not show obvious obstruction. (Rebel Pineda MD) ER Course Patient was endorsed to Dr. Ibarra who agreed admit the patient due to hypertensive crisis. Patient was given additional dose of pain medications. Blood pressure noted to be improved. Labs Test 08/01/20 13:30 White Blood Count 5.5 K/UL (4.8-10.8) Red Blood Count 3.54 M/UL (4.70-6.10) Hemoglobin 11.6 G/DL (14.2-18.0) Hematocrit 35.2 % (42.0-52.0) Mean Corpuscular Volume 99 FL (80-99) Mean Corpuscular Hemoglobin 32.8 PG (27.0-31.0) Mean Corpuscular Hemoglobin Concent 33.0 G/DL (32.0-36.0) Red Cell Distribution Width 15.4 % (11.6-14.8) Platelet Count 198 K/UL (150-450) Mean Platelet Volume 7.0 FL (6.5-10.1) Neutrophils (%) (Auto) 82.8 % (45.0-75.0) Lymphocytes (%) (Auto) 12.7 % (20.0-45.0) Monocytes (%) (Auto) 3.1 % (1.0-10.0) Eosinophils (%) (Auto) 0.2 % (0.0-3.0) Basophils (%) (Auto) 1.3 % (0.0-2.0) Prothrombin Time 10.7 SEC (9.30-11.50) Prothromb Time International Ratio 1.0 (0.9-1.1) Activated Partial Thromboplast Time 19 SEC (23-33) Sodium Level 135 MMOL/L (136-145) Potassium Level 4.6 MMOL/L (3.5-5.1) Chloride Level 94 MMOL/L (98-107) Carbon Dioxide Level 25 MMOL/L (21-32) Anion Gap 16 mmol/L (5-15) Blood Urea Nitrogen 15 mg/dL (7-18) Creatinine 6.8 MG/DL (0.55-1.30) Estimat Glomerular Filtration Rate 11.8 mL/min (>60) Glucose Level 386 MG/DL (74-106) Calcium Level 10.1 MG/DL (8.5-10.1) Total Bilirubin 0.4 MG/DL (0.2-1.0) Aspartate Amino Transf (AST/SGOT) 33 U/L (15-37) Alanine Aminotransferase (ALT/SGPT) 25 U/L (12-78) Alkaline Phosphatase 111 U/L (46-116) Troponin I 0.042 ng/mL (0.000-0.056) Total Protein 9.1 G/DL (6.4-8.2) Albumin 4.5 G/DL (3.4-5.0) Globulin 4.6 g/dL Albumin/Globulin Ratio 1.0 (1.0-2.7) (Daniele Gotti MD) ER Course 08/02 - Glucose 410. 3 units of Novolog had been given. 7 units more ordered for sliding scale. 1146 (Shamir Muse MD) EKG Diagnostic Results Troponin ordered: Yes When was troponin ordered?: Aug 01, 2020 EKG Time: 13:14 EP Interpretation: Sinus rhythm, normal axis, prolonged QTC 492 ms, hyperacute T waves Rate: tachycardiac Rhythm: NSR ST Segments: no acute changes (Rebel Pineda MD) Rhythm Strip Diag. Results Rhythm Strip Time: 13:14 EP Interpretation: yes Rate: 110 Rhythm: NSR, no PVC's, no ectopy (Rebel Pineda MD) Chest X-Ray Diagnostic Results Chest X-Ray Diagnostic Results : Chest X-Ray Ordered: Yes # of Views/Limited/Complete: 1 View Indication: Chest Pain Interpretation: no consolidation, no effusion, no pneumothorax, no acute cardiopulmonary disease Impression: No acute disease Electronically Signed by: Electronically signed by Dr. Rebel Pineda MD (Rebel Pineda MD) Other X-Ray Diagnostic Results Other X-Ray Diagnostic Results : X-Ray ordered: Abdomen # of Views/Limited Vs Complete: 1 View Indication: Pain EP Interpretation: Yes Interpretation: nonspecific bowel gas, no sbo Impression: No acute disease Electronically Signed by: Electronically signed by Dr. Rebel Pineda MD (Rebel Pineda MD) Last Vital Signs Date Time Temp Pulse Resp B/P (MAP) Pulse Ox O2 Delivery O2 Flow Rate FiO2 08/01/20 13:01 98.8 110 18 197/129 (151) 98 Room Air (Rebel Pineda MD) Status: unchanged (Daniele Gotti MD) Last Vital Signs Date Time Temp Pulse Resp B/P (MAP) Pulse Ox O2 Delivery O2 Flow Rate FiO2 08/02/20 17:46 97.3 08/02/20 17:16 175/115 08/02/20 16:10 Nasal Cannula 2.0 08/02/20 16:09 110 20 100 Status: improved (Shamir Muse MD) Disposition: ADMITTED INPATIENT Condition: Serious Rebel Pineda MD Aug 01, 2020 13:15 Daniele Gotti MD Aug 01, 2020 16:21 Shamir Muse MD Aug 02, 2020 11:46
[2020-08-01 13:51] LABS: BASOPHILS % (AUTO) 1.3 % (0.0-2.0); EOSINOPHILS % (AUTO) 0.2 % (0.0-3.0); HEMATOCRIT 35.2 % (42.0-52.0); HEMOGLOBIN 11.6 G/DL (14.2-18.0); LYMPHOCYTES % (AUTO) 12.7 % (20.0-45.0); MEAN CORPUSCULAR VOLUME 99 FL (80-99); MONOCYTES % (AUTO) 3.1 % (1.0-10.0); NEUTROPHILS % (AUTO) 82.8 % (45.0-75.0); PLATELET COUNT 198 K/UL (150-450); RED BLOOD COUNT 3.54 M/UL (4.70-6.10); RED CELL DISTRIBUTION WIDTH 15.4 % (11.6-14.8); WHITE BLOOD COUNT 5.5 K/UL (4.8-10.8)
[2020-08-01 14:14] LABS: CALCIUM 10.1 MG/DL (8.5-10.1); CREATININE 6.8 MG/DL (0.55-1.30); POTASSIUM 4.6 MMOL/L (3.5-5.1)
[2020-08-01] MEDS ORDERED: Labetalol 5mg/ml 20ml vial IV ONE (14:15)
[2020-08-01] MEDS ORDERED: DiphenhydrAMINE 50mg/ml Inj IVP ONE (14:15)
[2020-08-01 14:18] LABS: ALBUMIN 4.5 G/DL (3.4-5.0); BILIRUBIN,TOTAL 0.4 MG/DL (0.2-1.0)
[2020-08-01 15:12] VITALS: BP 166/96
[2020-08-01] MEDS ORDERED: Morphine Sulfate 2mg/ml Inj(IV/IM USE ONLY) IVP ONE (16:00)
[2020-08-01 17:15] VITALS: BP 162/91
--- NOTE | 2020-08-01 17:22 | Diagnostic Imaging Report ---
Indication: Chest pain Technique: One view of the chest Comparison: 06/25/2020 Findings: Lungs and pleural spaces are clear. Heart size is normal. Impression: No acute process
--- NOTE | 2020-08-01 17:23 | Diagnostic Imaging Report ---
Indication: Abdominal pain Technique: Supine view of the abdomen Comparison: 04/27/2020 Findings: Bowel gas pattern is unremarkable. No unusual masses or calcifications. No significant change Impression: No acute process
[2020-08-01 20:25] VITALS: BP 179/98
[2020-08-01] MEDS ORDERED: Insulin Human Regular 100units/ml 3ml IV ONE (21:30)
[2020-08-01] MEDS ORDERED: HYDROcodone/Acetamin 10/325 tab ORAL PRN ×2 (21:45)
[2020-08-01] MEDS: Levemir Flexpen SUBQ SCH (22:32)
[2020-08-01] MEDS ORDERED: cloNIDine 0.2mg Tab ORAL ONE (22:45)
[2020-08-01 22:46] VITALS: BP 171/101
[2020-08-01] MEDS: Morphine Sulfate 2mg/ml Inj(IV/IM USE ONLY) IVP PRN (23:57)
[2020-08-02] VITALS (11 sets, daily range): BP systolic 130–175; BP diastolic 56–115
[2020-08-02] MEDS: NovoLOG Insulin Flexpen SUBQ SCH ×6 (00:03→21:46)
[2020-08-02] MEDS ORDERED: Insulin Human Regular 100units/ml 3ml IV ONE ×3 (00:15→02:00)
[2020-08-02] MEDS: Morphine Sulfate 2mg/ml Inj(IV/IM USE ONLY) IVP PRN ×4 (06:35→21:37)
[2020-08-02] MEDS: Dolutegravir Sodium 50mg tab ORAL SCH (08:36)
[2020-08-02] MEDS: Benazepril 10mg tab ORAL SCH (08:37)
[2020-08-02] MEDS: Imipramine 10mg tab ORAL SCH (09:05)
[2020-08-02] MEDS: Losartan 50mg tab ORAL SCH (09:05)
[2020-08-02] MEDS: Levemir Flexpen SUBQ SCH ×2 (09:20→17:25)
[2020-08-02] MEDS ORDERED: Pantoprazole Inj IVP SCH (09:45)
[2020-08-02 11:30] LABS: BASOPHILS % (AUTO) 2.1 % (0.0-2.0); EOSINOPHILS % (AUTO) 0.5 % (0.0-3.0); HEMATOCRIT 31.6 % (42.0-52.0); HEMOGLOBIN 10.4 G/DL (14.2-18.0); LYMPHOCYTES % (AUTO) 13.3 % (20.0-45.0); MEAN CORPUSCULAR VOLUME 100 FL (80-99); NEUTROPHILS % (AUTO) 77.1 % (45.0-75.0); PLATELET COUNT 221 K/UL (150-450); RED BLOOD COUNT 3.17 M/UL (4.70-6.10); RED CELL DISTRIBUTION WIDTH 16.1 % (11.6-14.8); WHITE BLOOD COUNT 5.7 K/UL (4.8-10.8)
[2020-08-02] MEDS ORDERED: NovoLOG Insulin Flexpen SUBQ STA (11:44)
--- NOTE | 2020-08-02 13:21 | Consultation ---
History of Present Illness General Date patient seen: Aug 02, 2020 Reason for Hospitalization: Chest Pain Present Illness HPI This is a 30-year-old male well known to me from prior care plan with history of ESRD hemodialysis, gastroparesis, insulin-dependent diabetes, hypertension, p rior abd pain presents for evaluation of chest pain radiating to abdomen and vomiting. Patient states he has been feeling unwell for several days beginning saturday last week Reports generalized chest pain most concentrated over the sternum does not radiate. Feels like a pressure. Unable take his hypertension medications over the past 2 days due to persistent emesis. He has a history of gastroparesis. Pain exacerbated by bending and twisting motions as well as deep inspiration. Denies cough or congestion. Denies fever or chills. Tested negative for COVID-19 on 07/28 according to patient. Recent stress test 2 weeks ago at [facility] reportedly unremarkable. He reports bright red blood in his vomitus. Denies diarrhea or hematochezia. Full course of dialysis prior to arrival. Takes morphine and Dilaudid at home for chronic pain. surgery called toe valuate and assist with care. Allergies: Coded Allergies: ASPIRIN (Unverified Allergy, Unknown, 02/08/20) COVID-19 Screening Contact w/high risk pt: No Recent Travel to affected area: No Experienced COVID-19 symptoms?: No Medication History Scheduled Atorvastatin Calcium* (Lipitor*), 10 MG ORAL BEDTIME, (Reported) Benazepril Hcl* (Benazepril Hcl*), 10 MG ORAL DAILY, (Reported) Clonidine Hcl (Clonidine Hcl), 0.3 MG PO TID, (Reported) Clonidine Hcl* (Catapres*), 0.1 MG ORAL EVERY 6 HOURS, (Reported) Imjcaqzcv-Gpe-2* (Ijznklpo-Bov-8*), 1 PATCH TDERMAL QWEEK, (Reported) Darunavir/Cobicistat (Prezcobix 800 mg-150 mg Tablet), 1 EACH PO DAILY, (Reported) Dolutegravir Sodium (Tivicay), 50 MG ORAL DAILY, (Reported) Furosemide* (Lasix*), 20 MG ORAL DAILY, (Reported) Hydralazine Hcl* (Hydralazine Hcl*), 10 MG ORAL EVERY 6 HOURS, (Reported) Imipramine Hcl (Imipramine Hcl), 50 MG ORAL DAILY Insulin Aspart (Insulin Aspart Flexpen), 3 UNIT SQ TID AC, (Reported) Insulin Glargine (Lantus), 8 SUBQ BEDTIME, (Reported) Labetalol Hcl* (Normodyne*), 100 MG ORAL EVERY 12 HOURS, (Reported) Labetalol Hcl* (Normodyne*), 200 MG ORAL EVERY 12 HOURS, (Reported) Levetiracetam (Keppra), 500 MG ORAL EVERY 12 HOURS, (Reported) Losartan Potassium* (Losartan Potassium*), 50 MG ORAL DAILY, (Reported) Metoprolol Tartrate* (Metoprolol Tartrate*), 50 MG ORAL EVERY 12 HOURS Nifedipine* (Nifedipine*), 10 MG ORAL EVERY 6 HOURS, (Reported) Omeprazole (Omeprazole), 20 MG ORAL DAILY, (Reported) Pantoprazole* (Pantoprazole*), 40 MG ORAL EVERY 12 HOURS Vit B Cmplx 3/Fa/Vit C/Biotin (Teresita-Chaz Rx Tablet), 1 EACH PO DAILY, (Reported) Scheduled PRN Hydrocodone Bit/Acetaminophen 10-325* ([place] 10-325*), 1 TAB ORAL TID PRN for For Pain, (Reported) Metoclopramide Hcl* (Reglan*), 5 MG ORAL QID PRN for Nausea & Vomiting, (Reported) Morphine HCl (Morphine Sulfate ER), 15 MG ORAL DAILY PRN for For Pain, (Reported) Ondansetron Odt* (Zofran Odt*), 8 MG ORAL TID PRN for Nausea & Vomiting, (Reported) Patient History History Provided By: Patient Healthcare decision maker Resuscitation status Advanced Directive on File Past Medical/Surgical History Past Medical/Surgical History: (1) Diabetic ketoacidosis (2) Pancytopenia (3) Liver hemangioma (4) Noncompliance (5) Nausea & vomiting (6) Hyperglycemia (7) Renal failure (8) Abdominal pain (9) Gastroparesis diabeticorum (10) Type 1 diabetes (11) ESRD on dialysis (12) Uncontrolled hypertension (13) Hypertensive emergency (14) ESRD (end stage renal disease) (15) HIV (human immunodeficiency virus infection) (16) Hypertensive emergency (17) Chest pain (18) Abdominal pain (19) Malignant hypertension (arteriolar nephrosclerosis) (20) Hypertensive urgency Review of Systems Review of Symptoms General ROS: no weight loss or fever Psychological ROS: no depression or mood changes, no memory loss Ophthalmic ROS: no visual changes or eye irritation ENT ROS: no nasal congestion, hearing loss, dizziness Allergy and Immunology ROS: no allergic symptoms or urticaria Hematological and Lymphatic ROS: no swollen glands, unusual bleeding or bruising Endocrine ROS: no polyuria, polydipsia, weight changes, temperature intolerance Respiratory ROS: no cough, shortness of breath, or wheezing Cardiovascular ROS: no chest pain or dyspnea on exertion Gastrointestinal ROS: denies abdominal pain, bright red blood in stool. Musculoskeletal ROS: no myalgias or arthralgias Neurological ROS: no TIA or stroke symptoms Dermatological ROS: no new or changing skin lesions, rashes or pruritis Physical Exam Physical Exam General appearance: alert, cooperative, no distress, appears stated age Head: Normocephalic, without obvious abnormality, atraumatic Eyes: conjunctivae/corneas clear. PERRL, EOM's intact. Fundi benign Throat: Lips, mucosa, and tongue normal. Teeth and gums normal Neck: supple, symmetrical, trachea midline, no adenopathy, thyroid: not enlarged, symmetric, no tenderness/mass/nodules, no carotid bruit and no JVD Lungs: clear to auscultation bilaterally Heart: regular rate and rhythm, S1, S2 normal, no murmur, click, rub or gallop Abdomen: soft, non-tender. Bowel sounds normal. No masses, no organomegaly Extremities: extremities normal, atraumatic, no cyanosis or edema Pulses: 2+ and symmetric Skin: Skin color, texture, turgor normal. No rashes or lesions Neurologic: Grossly normal Last 24 Hour Vital Signs Date Time Temp Pulse Resp B/P (MAP) Pulse Ox O2 Delivery O2 Flow Rate FiO2 08/02/20 13:10 98.9 111 13 145/93 100 Room Air 08/02/20 12:56 98.9 110 12 145/93 100 Room Air 08/02/20 11:30 98.6 104 12 169/101 100 Room Air 08/02/20 10:19 98.6 08/02/20 09:05 178/105 08/02/20 09:00 100 178/105 08/02/20 09:00 178/105 08/02/20 09:00 98.6 102 12 166/104 97 Room Air 08/02/20 08:37 167/106 08/02/20 07:05 98.6 100 12 146/86 100 Room Air 08/02/20 06:51 98.8 08/02/20 05:55 98.8 65 16 153/82 100 Room Air 08/02/20 03:19 98.4 105 16 145/72 100 Room Air 08/02/20 01:08 98.7 112 16 130/69 100 Room Air 08/02/20 00:25 98.7 08/01/20 22:50 98.8 08/01/20 22:46 98.8 110 16 171/101 100 Room Air 08/01/20 22:43 171/101 08/01/20 22:20 120 173/98 08/01/20 20:25 98.8 118 16 179/98 99 Room Air 08/01/20 17:15 98.8 110 16 162/91 99 Room Air 08/01/20 16:32 98.8 08/01/20 15:12 98.8 112 19 166/96 99 Room Air 08/01/20 14:17 115 175/103 08/01/20 14:16 98.8 08/01/20 13:46 203/117 08/01/20 13:45 203/107 Laboratory Tests Test 08/01/20 13:30 08/02/20 11:20 White Blood Count 5.5 K/UL (4.8-10.8) 5.7 K/UL (4.8-10.8) Red Blood Count 3.54 M/UL (4.70-6.10) L 3.17 M/UL (4.70-6.10) L Hemoglobin 11.6 G/DL (14.2-18.0) L 10.4 G/DL (14.2-18.0) L Hematocrit 35.2 % (42.0-52.0) L 31.6 % (42.0-52.0) L Mean Corpuscular Volume 99 FL (80-99) 100 FL (80-99) H Mean Corpuscular Hemoglobin 32.8 PG (27.0-31.0) H 32.7 PG (27.0-31.0) H Mean Corpuscular Hemoglobin Concent 33.0 G/DL (32.0-36.0) 32.8 G/DL (32.0-36.0) Red Cell Distribution Width 15.4 % (11.6-14.8) H 16.1 % (11.6-14.8) H Platelet Count 198 K/UL (150-450) 221 K/UL (150-450) Mean Platelet Volume 7.0 FL (6.5-10.1) 6.8 FL (6.5-10.1) Neutrophils (%) (Auto) 82.8 % (45.0-75.0) H 77.1 % (45.0-75.0) H Lymphocytes (%) (Auto) 12.7 % (20.0-45.0) L 13.3 % (20.0-45.0) L Monocytes (%) (Auto) 3.1 % (1.0-10.0) 7.0 % (1.0-10.0) Eosinophils (%) (Auto) 0.2 % (0.0-3.0) 0.5 % (0.0-3.0) Basophils (%) (Auto) 1.3 % (0.0-2.0) 2.1 % (0.0-2.0) H Prothrombin Time 10.7 SEC (9.30-11.50) Prothromb Time International Ratio 1.0 (0.9-1.1) Activated Partial Thromboplast Time 19 SEC (23-33) L Sodium Level 135 MMOL/L (136-145) L Potassium Level 4.6 MMOL/L (3.5-5.1) Chloride Level 94 MMOL/L (98-107) L Carbon Dioxide Level 25 MMOL/L (21-32) Anion Gap 16 mmol/L (5-15) H Blood Urea Nitrogen 15 mg/dL (7-18) Creatinine 6.8 MG/DL (0.55-1.30) H Estimat Glomerular Filtration Rate 11.8 mL/min (>60) Glucose Level 386 MG/DL (74-106) H Calcium Level 10.1 MG/DL (8.5-10.1) Total Bilirubin 0.4 MG/DL (0.2-1.0) Aspartate Amino Transf (AST/SGOT) 33 U/L (15-37) Alanine Aminotransferase (ALT/SGPT) 25 U/L (12-78) Alkaline Phosphatase 111 U/L (46-116) Troponin I 0.042 ng/mL (0.000-0.056) Pro-B-Type Natriuretic Peptide 48448 pg/mL (0-125) H Total Protein 9.1 G/DL (6.4-8.2) H Albumin 4.5 G/DL (3.4-5.0) Globulin 4.6 g/dL Albumin/Globulin Ratio 1.0 (1.0-2.7) Microbiology Date/Time Source Procedure Growth Status 08/01/20 19:10 Rectum Received Height (Feet): 5 Height (Inches): 10.00 Weight (Pounds): 140 Medications Current Medications Medications (Trade) Dose Ordered Sig/Jo-Ann Route PRN Reason Start Time Stop Time Status Last Admin Dose Admin Acetaminophen/ Hydrocodone Bitart ([place] 10/325) 1 tab Q4H PRN ORAL Severe Pain (Pain Scale 7-10) 08/01/20 21:45 08/08/20 21:44 Acetaminophen/ Hydrocodone Bitart ([place] 10/325) 1 tab TID PRN ORAL For Pain 08/01/20 21:45 08/08/20 21:44 08/01/20 22:20 Atorvastatin Calcium (Lipitor) 10 mg BEDTIME ORAL 08/02/20 21:00 10/31/20 20:59 Benazepril HCl (Lotensin) 10 mg DAILY ORAL 08/02/20 09:00 09/01/20 08:59 08/02/20 08:37 Clonidine HCl (Catapres TTS-2) 1 patch QWEEK TDERMAL 08/02/20 09:00 10/31/20 08:59 Dextrose (Dextrose 50%) 25 ml Q30M PRN IV Hypoglycemia 08/02/20 11:45 10/31/20 11:44 Dextrose (Dextrose 50%) 50 ml Q30M PRN IV Hypoglycemia 08/02/20 11:45 10/31/20 11:44 Dolutegravir Sodium (Tivicay) 50 mg DAILY ORAL 08/02/20 09:00 10/31/20 08:59 08/02/20 08:36 Furosemide (Lasix) 20 mg DAILY ORAL 08/02/20 09:00 09/01/20 08:59 08/02/20 08:36 Hydralazine HCl (Apresoline) 10 mg Q4H PRN IV For High Blood Pressure 08/01/20 21:45 10/30/20 21:44 Imipramine HCl (Tofranil) 50 mg DAILY ORAL 08/02/20 09:00 09/01/20 08:59 08/02/20 09:05 Insulin Aspart (NovoLOG) BEFORE MEALS AND HS SUBQ 08/02/20 16:30 10/31/20 16:29 Insulin Aspart (NovoLOG) 3 units TIWM SUBQ 08/01/20 22:00 10/30/20 21:59 08/02/20 11:28 Insulin Detemir (Levemir) 6 units BID SUBQ 08/01/20 22:00 10/30/20 21:59 08/02/20 09:20 Labetalol HCl (Normodyne) 100 mg EVERY 12 HOURS ORAL 08/01/20 22:30 08/31/20 22:29 08/01/20 22:20 Levetiracetam (Keppra) 500 mg EVERY 12 HOURS ORAL 08/02/20 09:00 09/01/20 08:59 08/02/20 08:36 Losartan Potassium (Cozaar) 50 mg DAILY ORAL 08/02/20 09:00 09/01/20 08:59 08/02/20 09:05 Morphine Sulfate (Morphine Sulfate) 2 mg Q4H PRN IVP Severe Pain (Pain Scale 7-10) 08/01/20 21:45 08/08/20 21:44 08/02/20 09:49 Ondansetron HCl (Zofran) 4 mg Q6H PRN IVP Nausea & Vomiting 08/01/20 21:45 08/31/20 21:44 08/02/20 09:49 Pantoprazole (Protonix) 40 mg DAILY IVP 08/03/20 09:00 09/02/20 08:59 Assessment/Plan Problem List: (1) Chest pain ICD Codes: R07.9 - Chest pain, unspecified SNOMED: 52191387 (2) Abdominal pain Assessment & Plan: This is a 22-year-old male presenting with chest pain radiating to the abdomen. States initially abdominal pain was cramping but now it sharp. States began on Saturday of last week and has been persistent since. States the radiation of the pain from the chest to the abdomen is more recent. Has had history of chronic abdominal pain in the past but states that this episode is different. When asked about compared to last episode when he was admitted states is very different. States he has been having nausea and emesis. States now he is hungry and wants food. No nausea vomiting fever chills at this moment. Labs noted. Imaging reviewed. No obstructive symptoms. Exam fairly benign. No acute surgical intervention planned. Okay for diet. Trend labs. IV fluids potential dehydration. Will follow with serial exams and recommendations. Thank you for let me participate in patient's care ICD Codes: R10.9 - Unspecified abdominal pain SNOMED: 10043481 (3) Malignant hypertension (arteriolar nephrosclerosis) ICD Codes: I12.9 - Hypertensive chronic kidney disease with stage 1 through stage 4 chronic kidney disease, or unspecified chronic kidney disease SNOMED: 25085231 (4) Diabetic ketoacidosis ICD Codes: E11.10 - Type 2 diabetes mellitus with ketoacidosis without coma SNOMED: 09425885, 128533361 (5) Hyperglycemia ICD Codes: R73.9 - Hyperglycemia, unspecified SNOMED: 67861422 (6) Pancytopenia ICD Codes: D61.818 - Other pancytopenia SNOMED: 961831204 (7) Renal failure ICD Codes: N19 - Unspecified kidney failure SNOMED: 67204123 (8) ESRD (end stage renal disease) ICD Codes: N18.6 - End stage renal disease SNOMED: 28100333 (9) Abdominal pain ICD Codes: R10.9 - Unspecified abdominal pain SNOMED: 65992570 (10) HIV (human immunodeficiency virus infection) ICD Codes: B20 - Human immunodeficiency virus [HIV] disease SNOMED: 84964889 (11) Gastroparesis diabeticorum ICD Codes: E11.43 - Type 2 diabetes mellitus with diabetic autonomic (poly)neuropathy; K31.84 - Gastroparesis SNOMED: 89360029, 805829593 (12) Nausea & vomiting ICD Codes: R11.2 - Nausea with vomiting, unspecified SNOMED: 29715430 (13) Type 1 diabetes ICD Codes: E10.9 - Type 1 diabetes mellitus without complications SNOMED: 18107937 (14) ESRD on dialysis ICD Codes: N18.6 - End stage renal disease; Z99.2 - Dependence on renal dialysis SNOMED: 539396940 (15) Liver hemangioma ICD Codes: D18.03 - Hemangioma of intra-abdominal structures SNOMED: 17258455 (16) Hypertensive urgency ICD Codes: I16.0 - Hypertensive urgency SNOMED: 074625300 (17) Noncompliance ICD Codes: Z91.19 - Patient's noncompliance with other medical treatment and regimen SNOMED: 8624672 (18) Uncontrolled hypertension ICD Codes: I10 - Essential (primary) hypertension SNOMED: 81588905, 00027651 (19) Hypertensive emergency ICD Codes: I16.1 - Hypertensive emergency SNOMED: 698289606047943 (20) Hypertensive emergency ICD Codes: I16.1 - Hypertensive emergency SNOMED: 186005173001755 Kenney Friend Aug 02, 2020 13:21
--- NOTE | 2020-08-02 15:30 | History and Physical Report ---
DATE OF ADMISSION: 08/01/2020 CHIEF COMPLAINT: Uncontrolled hypertension, abdominal pain, possible GI bleed. HISTORY OF PRESENT ILLNESS: The patient is a 30-year-old male, well known to me. He has history of diabetes, diabetic gastroparesis, end-stage renal disease, HIV, and hypertension. He presented with complaints of abdominal pain, nausea, vomiting, and uncontrolled hypertension. According to the patient, he was well until the day of admission when he noted several episodes of dark coffee-ground emesis. He also notes that his stools have been dark and black-appearing. On evaluation in the emergency room, the patient was noted to be markedly hypertensive. Because of his vomiting, he has been unable to tolerate any of his medications. Initially, his blood pressure was 197/129 and currently, it is down to 178/105. There have been no episodes of bleeding noted. In light of his uncontrolled hypertension and vomiting, he is now admitted for further evaluation and care. PAST MEDICAL HISTORY: As above. PAST SURGICAL HISTORY: None. CURRENT MEDICATIONS: Reconciled and reviewed. ALLERGIES: Include aspirin. FAMILY HISTORY: Noncontributory. SOCIAL HISTORY: There is no known history of tobacco, ethanol, or drugs. REVIEW OF SYSTEMS: GENERAL: No fevers or chills. HEENT: No headaches or visual changes. CARDIOPULMONARY: No chest pain or shortness of breath. GASTROINTESTINAL: Positive nausea and vomiting. Questionable melena. Questionable coffee-ground emesis. GENITOURINARY: No urgency or frequency. MUSCULOSKELETAL: No joint pain or swelling. NEUROLOGIC: No evidence of seizures. PHYSICAL EXAMINATION: VITAL SIGNS: Temperature 98.6, pulse 100, respirations 12, blood pressure 178/105. GENERAL: The patient is well developed, in no apparent distress. HEART: Regular rate and rhythm. LUNGS: Clear. ABDOMEN: Soft, nontender, nondistended. EXTREMITIES: Without clubbing, cyanosis, or edema. NEUROLOGIC: Motor strength is 5/5 bilaterally. GENERAL: The patient is alert and oriented x4. LABORATORY DATA: Sodium 135, potassium 4.6, BUN 15, creatinine 6.8. White count 5, hemoglobin 11, hematocrit 35, platelets 198,000. Coags are normal. ASSESSMENT: This is a 30-year-old male with history of end-stage renal disease, hypertension, HIV, diabetic gastroparesis, admitted with uncontrolled hypertension, questionable GI bleed. PLAN: Admit to telemetry bed. Titrate antihypertensive regimen. Renal, Cardiology, and GI consultations will be obtained. We will continue the patient on IV proton-pump inhibitor. We will monitor serial CBCs. Dialysis was deferred to the bath steward/stewardess. Plan of care was discussed at the bedside with the patient. Ben Ibarra M.D. DR: Zahida JOB#: [id number] CC:
--- NOTE | 2020-08-02 21:31 | Consultation ---
DATE OF CONSULTATION: 08/02/2020 CONSULTING PHYSICIAN: Benito Maguire MD REFERRING PHYSICIAN: Ben Ibarra MD REASON FOR CONSULTATION: End-stage renal disease, malignant hypertension. HISTORY OF PRESENT ILLNESS: The patient is a 30-year-old male with end-stage renal disease, malignant hypertension, insulin-dependent diabetes, HIV positive. He had multiple hospitalizations and returns to the hospital with uncontrolled vomiting and some hematemesis. He says he has also had some chest discomfort associated with the vomiting. No shortness of breath. No history of exposure to COVID. The patient has had GI evaluations from prior admissions and has likely either cyclic vomiting or diabetic enteropathy. ALLERGIES: None known. MEDICATIONS: Reviewed on the computer. He has not been able to hold down his home medications. PAST SURGERIES: AV fistula, biopsy of lesion on the back was benign. SYSTEM REVIEW: HEAD, EYES, EARS, NOSE, AND THROAT: No known retinopathy. Vision and hearing is good. ENDOCRINE: Labile diabetes with recurrent hyperglycemia. No thyroid disease. PULMONARY: No asthma or TB. CARDIAC: He has had atypical chest pains. No ND. He has [id number] hypertension. GASTROINTESTINAL: Recurrent nausea and vomiting as above. GENITOURINARY: No dysuria or hematuria. NEUROLOGIC: No CVA or seizures. PHYSICAL EXAMINATION: GENERAL: The patient is alert, thin man, lying in bed, in no acute distress. VITAL SIGNS: Blood pressure has been between 149/97 and 175/115 today, higher yesterday, temperature 97.3, pulse 110, O2 saturation 100%. HEAD, EYES, EARS, NOSE, AND THROAT: Sclerae are nonicteric. Ocular motions intact in all directions. Oral mucosa moist. NECK: No adenopathy. LUNGS: Clear. HEART: The rhythm is regular with a 1 to 2/6 systolic ejection murmur. ABDOMEN: Soft. I am unable to feel liver or spleen. EXTREMITIES: No edema, cyanosis, or clubbing. There is an AV fistula in the right arm with good thrill. NEUROLOGIC: He is alert and oriented. No focal weakness. PERTINENT LABORATORY DATA: Show sodium 135, potassium 4.6, BUN 15, creatinine 6.8, calcium is 10.1 with an albumin [place] 4[place] [address]. White count 5.7, hemoglobin is 10.4. Chest x-ray shows no acute process. IMPRESSION: 1. Malignant hypertension. 2. History of recurrent nausea and vomiting. 3. End-stage renal disease. 4. Likely diabetic gastroparesis. 5. Insulin-dependent diabetes with labile glucose. PLAN: We will arrange dialysis. All orders are reviewed for end-stage renal disease. His antihypertensive regimen is updated. Thank you so much for allowing me to participate in the care of this patient. Benito Maguire M.D. DR: BROCK JOB#: [id number] CC:
[2020-08-02] MEDS: HydrALAZINE 50mg tab ORAL SCH (21:39)
[2020-08-03] VITALS: BP 106/61
[2020-08-03 03:50] VITALS: BP 132/74
[2020-08-03] MEDS: Morphine Sulfate 2mg/ml Inj(IV/IM USE ONLY) IVP PRN ×4 (03:51→18:03)
[2020-08-03] MEDS: DiphenhydrAMINE 50mg/ml Inj IVP PRN ×3 (04:54→17:13)
[2020-08-03] MEDS: HydrALAZINE 50mg tab ORAL SCH ×3 (06:00→22:48)
[2020-08-03] MEDS ORDERED: Heparin Sod 1000 units/ml 10ml IV PRN (06:00)
[2020-08-03] MEDS: NovoLOG Insulin Flexpen SUBQ SCH ×7 (06:45→22:51)
[2020-08-03 08:00] VITALS: BP 135/72
[2020-08-03] MEDS: Benazepril 10mg tab ORAL SCH (08:16)
[2020-08-03] MEDS: Imipramine 10mg tab ORAL SCH (08:17)
[2020-08-03] MEDS: Losartan 50mg tab ORAL SCH (08:18)
[2020-08-03 08:59] LABS: EOSINOPHILS % (AUTO) 1.2 % (0.0-3.0); HEMATOCRIT 33.5 % (42.0-52.0); HEMOGLOBIN 11.2 G/DL (14.2-18.0); LYMPHOCYTES % (AUTO) 16.2 % (20.0-45.0); MEAN CORPUSCULAR VOLUME 100 FL (80-99); MONOCYTES % (AUTO) 3.6 % (1.0-10.0); PLATELET COUNT 222 K/UL (150-450); RED BLOOD COUNT 3.36 M/UL (4.70-6.10); RED CELL DISTRIBUTION WIDTH 15.1 % (11.6-14.8); WHITE BLOOD COUNT 5.1 K/UL (4.8-10.8)
[2020-08-03] MEDS ORDERED: Pantoprazole Inj IVP SCH (09:00)
--- NOTE | 2020-08-03 09:01 | General Progress Note ---
Subjective ROS Limited/Unobtainable: No Constitutional: Reports: malaise, weakness HEENT: Reports: no symptoms Cardiovascular: Reports: no symptoms Respiratory: Reports: no symptoms Gastrointestinal/Abdominal: Reports: abdominal pain, black stools, vomiting Genitourinary: Reports: no symptoms Neurologic/Psychiatric: Reports: no symptoms Endocrine: Reports: no symptoms Hematologic/Lymphatic: Reports: anemia Allergies: Coded Allergies: ASPIRIN (Unverified Allergy, Unknown, 02/08/20) All Systems: reviewed and negative except above Subjective no events. c/o abd pain. per pt coffee ground emesis and black stools at home. bp better controlled. Objective Last 24 Hour Vital Signs Date Time Temp Pulse Resp B/P (MAP) Pulse Ox O2 Delivery O2 Flow Rate FiO2 08/03/20 08:18 132/74 08/03/20 08:17 114 132/74 08/03/20 08:16 132/74 08/03/20 04:00 97 08/03/20 03:50 97.7 101 16 132/74 (93) 99 08/03/20 00:00 105 08/03/20 00:00 98.1 95 16 106/61 (76) 99 08/02/20 21:39 145/96 08/02/20 21:38 110 145/96 08/02/20 21:00 Room Air 08/02/20 20:00 108 08/02/20 20:00 97.6 110 16 145/96 (112) 98 08/02/20 17:46 97.3 08/02/20 17:16 175/115 08/02/20 16:10 Nasal Cannula 2.0 08/02/20 16:09 97.3 110 20 149/97 (114) 100 08/02/20 16:00 102 08/02/20 16:00 97.7 112 17 175/115 (135) 100 08/02/20 13:10 98.9 111 13 145/93 100 Room Air 08/02/20 12:56 98.9 110 12 145/93 100 Room Air 08/02/20 11:30 98.6 104 12 169/101 100 Room Air 08/02/20 10:19 98.6 08/02/20 09:05 178/105 08/02/20 09:00 100 178/105 08/02/20 09:00 178/105 08/02/20 09:00 98.6 102 12 166/104 97 Room Air Intake and Output 08/02/20 08/03/20 19:00 07:00 Output Total 0 ml Balance 0 ml Output Urine Total 0 ml Laboratory Tests 08/02/20 11:20: White Blood Count 5.7, Red Blood Count 3.17L, Hemoglobin 10.4L, Hematocrit 31.6L , Mean Corpuscular Volume 100H, Mean Corpuscular Hemoglobin 32.7H, Mean Corpuscular Hemoglobin Concent 32.8, Red Cell Distribution Width 16.1H, Platelet Count 221, Mean Platelet Volume 6.8, Neutrophils (%) (Auto) 77.1H, Lymphocytes (%) (Auto) 13.3L, Monocytes (%) (Auto) 7.0, Eosinophils (%) (Auto) 0.5, Basophils (%) (Auto) 2.1H 08/02/20 17:01: POC Whole Blood Glucose 304H 08/03/20 07:35: White Blood Count [Pending], Red Blood Count [Pending], Hemoglobin [Pending], Hematocrit [Pending], Mean Corpuscular Volume [Pending], Mean Corpuscular Hemoglobin [Pending], Mean Corpuscular Hemoglobin Concent [Pending], Red Cell Distribution Width [Pending], Platelet Count [Pending], Mean Platelet Volume [Pending], Neutrophils (%) (Auto) [Pending], Lymphocytes (%) (Auto) [Pending], Monocytes (%) (Auto) [Pending], Eosinophils (%) (Auto) [Pending], Basophils (%) (Auto) [Pending], Erythrocyte Sedimentation Rate [Pending], Sodium Level [Pending], Potassium Level [Pending], Chloride Level [Pending], Carbon Dioxide Level [Pending], Blood Urea Nitrogen [Pending], Creatinine [Pending], Estimat Glomerular Filtration Rate [Pending], Glucose Level [Pending], Lactic Acid Level [Pending], Calcium Level [Pending], Total Bilirubin [Pending], Aspartate Amino Transf (AST/SGOT) [Pending], Alanine Aminotransferase (ALT/SGPT) [Pending], Alkaline Phosphatase [Pending], C-Reactive Protein, Quantitative [Pending], Total Protein [Pending], Albumin [Pending], Globulin [Pending], Amylase Level [Pending], Lipase [Pending] Height (Feet): 5 Height (Inches): 10.00 Weight (Pounds): 140 General Appearance: WD/WN, alert Neck: supple Cardiovascular: regular rhythm Respiratory/Chest: lungs clear, normal breath sounds Abdomen: normal bowel sounds, non tender, soft, no organomegaly Edema: no edema noted Arm (L), no edema noted Arm (R) 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, alert, oriented x 3 Assessment/Plan Problem List: (1) GIB (gastrointestinal bleeding) ICD Codes: K92.2 - Gastrointestinal hemorrhage, unspecified SNOMED: 04676841 (2) Hypertensive emergency ICD Codes: I16.1 - Hypertensive emergency SNOMED: 555946956867709 (3) ESRD on dialysis ICD Codes: N18.6 - End stage renal disease; Z99.2 - Dependence on renal dialysis SNOMED: 153120975 (4) Type 1 diabetes ICD Codes: E10.9 - Type 1 diabetes mellitus without complications SNOMED: 15964149 (5) Nausea & vomiting ICD Codes: R11.2 - Nausea with vomiting, unspecified SNOMED: 12442224 (6) Gastroparesis diabeticorum ICD Codes: E11.43 - Type 2 diabetes mellitus with diabetic autonomic (poly)neuropathy; K31.84 - Gastroparesis SNOMED: 89515178, 015642029 (7) HIV (human immunodeficiency virus infection) ICD Codes: B20 - Human immunodeficiency virus [HIV] disease SNOMED: 15620098 Status: stable, progressing Assessment/Plan: cont current rx follow up cbc PPI rx GI eval pending pain rx antiemetics Ben Ibarra MD Aug 03, 2020 09:01
[2020-08-03 09:12] LABS: ALANINE AMINOTRANSFERASE 21 U/L (12-78); ALBUMIN 4.3 G/DL (3.4-5.0); ALKALINE PHOSPHATASE 88 U/L (46-116); AMYLASE 69 U/L (25-115); ANION GAP 11 mmol/L (5-15); ASPARTATE AMINO TRANSFERASE 21 U/L (15-37); BILIRUBIN,TOTAL 0.4 MG/DL (0.2-1.0); BLOOD UREA NITROGEN 21 mg/dL (7-18); CALCIUM 9.2 MG/DL (8.5-10.1); CARBON DIOXIDE 31 MMOL/L (21-32); CHLORIDE 98 MMOL/L (98-107); CREATININE 6.3 MG/DL (0.55-1.30); POTASSIUM 3.8 MMOL/L (3.5-5.1); SODIUM 140 MMOL/L (136-145)
[2020-08-03] MEDS: Dolutegravir Sodium 50mg tab ORAL SCH (09:21)
[2020-08-03] MEDS: Levemir Flexpen SUBQ SCH ×2 (09:22→16:48)
[2020-08-03 12:00] VITALS: BP 145/76
--- NOTE | 2020-08-03 15:10 | Surgery Progress Note ---
Surgery Progress Note Subjective Additional Comments No acute bleeding H&H stable abdominal pain same states he does not want he does not like the renal diet states he does not have enough flavor taste wants better food. No nausea vomiting fever chills Objective Last 24 Hour Vital Signs Date Time Temp Pulse Resp B/P (MAP) Pulse Ox O2 Delivery O2 Flow Rate FiO2 08/03/20 14:08 145/76 08/03/20 12:00 98.2 108 18 145/76 (99) 100 08/03/20 09:00 Room Air 08/03/20 08:18 132/74 08/03/20 08:17 114 132/74 08/03/20 08:16 132/74 08/03/20 08:00 107 08/03/20 08:00 97.5 114 16 135/72 (93) 98 08/03/20 04:00 97 08/03/20 03:50 97.7 101 16 132/74 (93) 99 08/03/20 00:00 105 08/03/20 00:00 98.1 95 16 106/61 (76) 99 08/02/20 21:39 145/96 08/02/20 21:38 110 145/96 08/02/20 21:00 Room Air 08/02/20 20:00 108 08/02/20 20:00 97.6 110 16 145/96 (112) 98 08/02/20 17:46 97.3 08/02/20 17:16 175/115 08/02/20 16:10 Nasal Cannula 2.0 08/02/20 16:09 97.3 110 20 149/97 (114) 100 08/02/20 16:00 102 08/02/20 16:00 97.7 112 17 175/115 (135) 100 I&O Intake and Output 08/02/20 08/03/20 19:00 07:00 Output Total 0 ml Balance 0 ml Output Urine Total 0 ml Cardiovascular: RSR Respiratory: clear Abdomen: soft, non-tender, present bowel sounds Extremities: no edema, no tenderness, no cyanosis Laboratory Tests Test 08/02/20 17:01 08/03/20 07:35 08/03/20 14:52 POC Whole Blood Glucose 304 MG/DL (74-106) H 48 MG/DL (74-106) L White Blood Count 5.1 K/UL (4.8-10.8) Red Blood Count 3.36 M/UL (4.70-6.10) L Hemoglobin 11.2 G/DL (14.2-18.0) L Hematocrit 33.5 % (42.0-52.0) L Mean Corpuscular Volume 100 FL (80-99) H Mean Corpuscular Hemoglobin 33.3 PG (27.0-31.0) H Mean Corpuscular Hemoglobin Concent 33.5 G/DL (32.0-36.0) Red Cell Distribution Width 15.1 % (11.6-14.8) H Platelet Count 222 K/UL (150-450) Mean Platelet Volume 7.1 FL (6.5-10.1) Neutrophils (%) (Auto) 77.0 % (45.0-75.0) H Lymphocytes (%) (Auto) 16.2 % (20.0-45.0) L Monocytes (%) (Auto) 3.6 % (1.0-10.0) Eosinophils (%) (Auto) 1.2 % (0.0-3.0) Basophils (%) (Auto) 2.0 % (0.0-2.0) Erythrocyte Sedimentation Rate 42 MM/HR (0-15) H Sodium Level 140 MMOL/L (136-145) Potassium Level 3.8 MMOL/L (3.5-5.1) Chloride Level 98 MMOL/L (98-107) Carbon Dioxide Level 31 MMOL/L (21-32) Anion Gap 11 mmol/L (5-15) Blood Urea Nitrogen 21 mg/dL (7-18) H Creatinine 6.3 MG/DL (0.55-1.30) H Estimat Glomerular Filtration Rate 12.8 mL/min (>60) Glucose Level 290 MG/DL (74-106) H Lactic Acid Level 1.80 mmol/L (0.4-2.0) Calcium Level 9.2 MG/DL (8.5-10.1) Total Bilirubin 0.4 MG/DL (0.2-1.0) Aspartate Amino Transf (AST/SGOT) 21 U/L (15-37) Alanine Aminotransferase (ALT/SGPT) 21 U/L (12-78) Alkaline Phosphatase 88 U/L (46-116) C-Reactive Protein, Quantitative < 0.4 mg/dL (0.00-0.90) Total Protein 8.5 G/DL (6.4-8.2) H Albumin 4.3 G/DL (3.4-5.0) Globulin 4.2 g/dL Albumin/Globulin Ratio 1.0 (1.0-2.7) Amylase Level 69 U/L (25-115) Lipase 57 U/L (73-393) L Plan Problems: (1) Chest pain (2) Abdominal pain Assessment & Plan: This is a 22-year-old male presenting with chest pain radiating to the abdomen. States initially abdominal pain was cramping but now it sharp. States began on Saturday of last week and has been persistent since. States the radiation of the pain from the chest to the abdomen is more recent. Has had history of chronic abdominal pain in the past but states that this episode is different. When asked about compared to last episode when he was admitted states is very different. States he has been having nausea and emesis. States now he is hungry and wants food. No nausea vomiting fever chills at this moment. Labs noted. Imaging reviewed. No obstructive symptoms. Exam fairly benign. No acute surgical intervention planned. Okay for diet. Trend labs. IV fluids potential dehydration. Will follow with serial exams and recommendations. Thank you for let me participate in patient's care (3) Malignant hypertension (arteriolar nephrosclerosis) (4) Diabetic ketoacidosis (5) Hyperglycemia (6) Pancytopenia (7) Renal failure (8) ESRD (end stage renal disease) (9) Abdominal pain (10) HIV (human immunodeficiency virus infection) (11) Gastroparesis diabeticorum (12) Nausea & vomiting (13) Type 1 diabetes (14) ESRD on dialysis (15) Liver hemangioma (16) Hypertensive urgency (17) Noncompliance (18) Uncontrolled hypertension (19) Hypertensive emergency (20) Hypertensive emergency Kenney Friend Aug 03, 2020 15:09
[2020-08-03 16:00] VITALS: BP 148/86
--- NOTE | 2020-08-03 19:49 | Nephrology Progress Note ---
Assessment/Plan Problem List: (1) Hyperglycemia (2) ESRD (end stage renal disease) (3) HIV (human immunodeficiency virus infection) (4) Gastroparesis diabeticorum (5) Hypertensive emergency (6) GIB (gastrointestinal bleeding) (7) Type 1 diabetes Plan bp better, stable on dialysis Subjective Constitutional: Reports: weakness HEENT: Reports: no symptoms Genitourinary: Reports: no symptoms Neurologic/Psychiatric: Reports: no symptoms Subjective less nausea Objective Objective Last 24 Hour Vital Signs Date Time Temp Pulse Resp B/P (MAP) Pulse Ox O2 Delivery O2 Flow Rate FiO2 08/03/20 16:00 98.1 106 18 148/86 (106) 98 08/03/20 16:00 106 08/03/20 14:08 145/76 08/03/20 12:00 106 08/03/20 12:00 98.2 108 18 145/76 (99) 100 08/03/20 09:00 Room Air 08/03/20 08:18 132/74 08/03/20 08:17 114 132/74 08/03/20 08:16 132/74 08/03/20 08:00 107 08/03/20 08:00 97.5 114 16 135/72 (93) 98 08/03/20 04:00 97 08/03/20 03:50 97.7 101 16 132/74 (93) 99 08/03/20 00:00 105 08/03/20 00:00 98.1 95 16 106/61 (76) 99 08/02/20 21:39 145/96 08/02/20 21:38 110 145/96 08/02/20 21:00 Room Air 08/02/20 20:00 108 08/02/20 20:00 97.6 110 16 145/96 (112) 98 Intake and Output 08/02/20 08/03/20 19:00 07:00 Output Total 0 ml Balance 0 ml Output Urine Total 0 ml Laboratory Tests 08/03/20 07:35: White Blood Count 5.1, Red Blood Count 3.36L, Hemoglobin 11.2L, Hematocrit 33.5L , Mean Corpuscular Volume 100H, Mean Corpuscular Hemoglobin 33.3H, Mean Corpuscular Hemoglobin Concent 33.5, Red Cell Distribution Width 15.1H, Platelet Count 222, Mean Platelet Volume 7.1, Neutrophils (%) (Auto) 77.0H, Lymphocytes (%) (Auto) 16.2L, Monocytes (%) (Auto) 3.6, Eosinophils (%) (Auto) 1.2, Basophils (%) (Auto) 2.0, Erythrocyte Sedimentation Rate 42H, Sodium Level 140, Potassium Level 3.8, Chloride Level 98, Carbon Dioxide Level 31, Anion Gap 11, Blood Urea Nitrogen 21H, Creatinine 6.3H, Estimat Glomerular Filtration Rate 12.8, Glucose Level 290H, Lactic Acid Level 1.80, Calcium Level 9.2, Total B ilirubin 0.4, Aspartate Amino Transf (AST/SGOT) 21, Alanine Aminotransferase (ALT/SGPT) 21, Alkaline Phosphatase 88, C-Reactive Protein, Quantitative < 0.4, Total Protein 8.5H, Albumin 4.3, Globulin 4.2, Albumin/Globulin Ratio 1.0, Angeli lase Level 69, Lipase 57L 08/03/20 14:52: POC Whole Blood Glucose 48L Height (Feet): 5 Height (Inches): 10.00 Weight (Pounds): 140 General Appearance: no apparent distress, alert EENT: normal ENT inspection Neck: normal alignment, supple Cardiovascular: regular rhythm Respiratory/Chest: lungs clear Abdomen: non tender Extremities: no edema 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
[2020-08-03 20:00] VITALS: BP 150/80
--- NOTE | 2020-08-03 22:44 | General Progress Note ---
Subjective Allergies: Coded Allergies: ASPIRIN (Unverified Allergy, Unknown, 02/08/20) Objective Last 24 Hour Vital Signs Date Time Temp Pulse Resp B/P (MAP) Pulse Ox O2 Delivery O2 Flow Rate FiO2 08/03/20 16:00 98.1 106 18 148/86 (106) 98 08/03/20 16:00 106 08/03/20 14:08 145/76 08/03/20 12:00 106 08/03/20 12:00 98.2 108 18 145/76 (99) 100 08/03/20 09:00 Room Air 08/03/20 08:18 132/74 08/03/20 08:17 114 132/74 08/03/20 08:16 132/74 08/03/20 08:00 107 08/03/20 08:00 97.5 114 16 135/72 (93) 98 08/03/20 04:00 97 08/03/20 03:50 97.7 101 16 132/74 (93) 99 08/03/20 00:00 105 08/03/20 00:00 98.1 95 16 106/61 (76) 99 Intake and Output 08/02/20 08/03/20 19:00 07:00 Output Total 0 ml Balance 0 ml Output Urine Total 0 ml Laboratory Tests 08/03/20 07:35: White Blood Count 5.1, Red Blood Count 3.36L, Hemoglobin 11.2L, Hematocrit 33.5L , Mean Corpuscular Volume 100H, Mean Corpuscular Hemoglobin 33.3H, Mean Corpuscular Hemoglobin Concent 33.5, Red Cell Distribution Width 15.1H, Platelet Count 222, Mean Platelet Volume 7.1, Neutrophils (%) (Auto) 77.0H, Lymphocytes (%) (Auto) 16.2L, Monocytes (%) (Auto) 3.6, Eosinophils (%) (Auto) 1.2, Basophils (%) (Auto) 2.0, Erythrocyte Sedimentation Rate 42H, Sodium Level 140, Potassium Level 3.8, Chloride Level 98, Carbon Dioxide Level 31, Anion Gap 11, Blood Urea Nitrogen 21H, Creatinine 6.3H, Estimat Glomerular Filtration Rate 12.8, Glucose Level 290H, Lactic Acid Level 1.80, Calcium Level 9.2, Total Bilirubin 0.4, Aspartate Amino Transf (AST/SGOT) 21, Alanine Aminotransferase (ALT/SGPT) 21, Alkaline Phosphatase 88, C-Reactive Protein, Quantitative < 0.4, Total Protein 8.5H, Albumin 4.3, Globulin 4.2, Albumin/Globulin Ratio 1.0, Amylase Level 69, Lipase 57L 08/03/20 14:52: POC Whole Blood Glucose 48L Height (Feet): 5 Height (Inches): 10.00 Weight (Pounds): 140 Assessment/Plan Status: stable, progressing Assessment/Plan: GI CONSULT Assessment - possible UGI bleed - h/o gastritis per endoscopy - DM with presumed DM gastroparesis - ESRD / HD - HTN Recommendations BID PPI Elevate HOB monitor H&H po as tolerated anti emetics minimize narcotics UGI series in am Thank you P MD Antoinette Curry Payman MD Aug 03, 2020 22:44
[2020-08-03] MEDS ORDERED: Barium EZ HD MC PRN (23:00)
[2020-08-03] MEDS ORDERED: Varibar Thin Liquid powder 148gm MC PRN (23:00)
[2020-08-03] MEDS ORDERED: Barium EZ Gas II granules MC PRN (23:00)
[2020-08-04] VITALS (7 sets, daily range): BP systolic 139–192; BP diastolic 84–110
[2020-08-04] MEDS: Pantoprazole Inj IVP SCH ×3 (00:01→21:01)
[2020-08-04] MEDS: Morphine Sulfate 2mg/ml Inj(IV/IM USE ONLY) IVP PRN ×5 (00:02→22:01)
--- NOTE | 2020-08-04 01:05 | Cardiology Progress Note ---
Subjective DATE OF SERVICE: Aug 02, 2020 Late entry Still with labile BP readings up to 175/110 with associated tachycardia. Monitor: sinus tachycardia He has continued nausea, with some vomiting. He c/o chest pain with vomiting. Objective Last 24 Hour Vital Signs 175/110 111 20 Afebrile ROS: unchanged from my evaluation of 08/01/20. HEENT: normal ENT inspection RHYTHM: NSR, ST LUNGS: lungs clear bilaterally CARDIAC: normal rate, regular rhythm, normal S1 and S2, tachycardia, gallop/S4 ABDOMEN: normal bowel sounds, soft, tender - diffusely, slightly distended EXTREMITIES: normal range of motion, No edema, other - RUE AV fistula with thrill palpable Laboratory Tests reviewed Microbiology Date/Time Source Procedure Growth Status 08/01/20 19:10 Rectum Received Assessment/Plan Assessment/Plan Cyclic vomiting IRDM with Gastroparesis Hx gastritis and GI bleed Hypertensive urgency ESRD Secondary sinus tachycardia HIV + Topical and IV antiHTN meds until fully tolerating orals COntinuous cardiac monitoring HD with UF per renal Bowel regimen Insulin titration Shamir Dunlap MD Aug 04, 2020 01:05
--- NOTE | 2020-08-04 01:09 | Cardiology Progress Note ---
Subjective DATE OF SERVICE: Aug 03, 2020 Some improvement in abdominal pain. Monitor: sinus/sinus tachycardia He has continued nausea, but no vomiting or CP. Objective Last 24 Hour Vital Signs Date Time Temp Pulse Resp B/P (MAP) Pulse Ox O2 Delivery O2 Flow Rate FiO2 08/03/20 22:48 159/99 08/03/20 22:47 107 159/99 08/03/20 16:00 98.1 106 18 148/86 (106) 98 08/03/20 16:00 106 08/03/20 14:08 145/76 08/03/20 12:00 106 08/03/20 12:00 98.2 108 18 145/76 (99) 100 08/03/20 09:00 Room Air 08/03/20 08:18 132/74 08/03/20 08:17 114 132/74 08/03/20 08:16 132/74 08/03/20 08:00 107 08/03/20 08:00 97.5 114 16 135/72 (93) 98 08/03/20 04:00 97 08/03/20 03:50 97.7 101 16 132/74 (93) 99 ROS: unchanged from my evaluation of 08/01/20. HEENT: normal ENT inspection RHYTHM: NSR, ST LUNGS: lungs clear bilaterally CARDIAC: normal rate, regular rhythm, normal S1 and S2, tachycardia, gallop/S4 ABDOMEN: normal bowel sounds, soft, tender - diffusely, slightly distended EXTREMITIES: normal range of motion, No edema, other - RUE AV fistula with thrill palpable Laboratory Tests Test 08/03/20 07:35 08/03/20 14:52 08/03/20 22:50 White Blood Count 5.1 K/UL (4.8-10.8) Red Blood Count 3.36 M/UL (4.70-6.10) L Hemoglobin 11.2 G/DL (14.2-18.0) L Hematocrit 33.5 % (42.0-52.0) L Mean Corpuscular Volume 100 FL (80-99) H Mean Corpuscular Hemoglobin 33.3 PG (27.0-31.0) H Mean Corpuscular Hemoglobin Concent 33.5 G/DL (32.0-36.0) Red Cell Distribution Width 15.1 % (11.6-14.8) H Platelet Count 222 K/UL (150-450) Mean Platelet Volume 7.1 FL (6.5-10.1) Neutrophils (%) (Auto) 77.0 % (45.0-75.0) H Lymphocytes (%) (Auto) 16.2 % (20.0-45.0) L Monocytes (%) (Auto) 3.6 % (1.0-10.0) Eosinophils (%) (Auto) 1.2 % (0.0-3.0) Basophils (%) (Auto) 2.0 % (0.0-2.0) Erythrocyte Sedimentation Rate 42 MM/HR (0-15) H Sodium Level 140 MMOL/L (136-145) Potassium Level 3.8 MMOL/L (3.5-5.1) Chloride Level 98 MMOL/L (98-107) Carbon Dioxide Level 31 MMOL/L (21-32) Anion Gap 11 mmol/L (5-15) Blood Urea Nitrogen 21 mg/dL (7-18) H Creatinine 6.3 MG/DL (0.55-1.30) H Estimat Glomerular Filtration Rate 12.8 mL/min (>60) Glucose Level 290 MG/DL (74-106) H Lactic Acid Level 1.80 mmol/L (0.4-2.0) Calcium Level 9.2 MG/DL (8.5-10.1) Total Bilirubin 0.4 MG/DL (0.2-1.0) Aspartate Amino Transf (AST/SGOT) 21 U/L (15-37) Alanine Aminotransferase (ALT/SGPT) 21 U/L (12-78) Alkaline Phosphatase 88 U/L (46-116) C-Reactive Protein, Quantitative < 0.4 mg/dL (0.00-0.90) Total Protein 8.5 G/DL (6.4-8.2) H Albumin 4.3 G/DL (3.4-5.0) Globulin 4.2 g/dL Albumin/Globulin Ratio 1.0 (1.0-2.7) Amylase Level 69 U/L (25-115) Lipase 57 U/L (73-393) L POC Whole Blood Glucose 48 MG/DL (74-106) L 279 MG/DL (74-106) H Microbiology Date/Time Source Procedure Growth Status 08/01/20 19:10 Rectum Received Assessment/Plan Assessment/Plan Cyclic vomiting IRDM with Gastroparesis Hx gastritis and GI bleed Hypertensive urgency resolving ESRD Secondary sinus tachycardia HIV + Transition to, and titrate oral antiHTN regimen COntinuous cardiac monitoring HD with UF per renal Bowel regimen Insulin titration Shamir Dunlap MD Aug 04, 2020 01:09
--- NOTE | 2020-08-04 01:30 | Consultation ---
DATE OF CONSULTATION: 08/04/2020 GASTROENTEROLOGY CONSULTATION CONSULTING PHYSICIAN: Alexander Curry MD CHIEF COMPLAINT: I was asked to see this patient for evaluation of dark emesis. HISTORY OF PRESENT ILLNESS: Patient is a 30-year-old man with multiple admissions to the hospital with similar symptoms. He complains of 5 days of red and black emesis, although none have been seen here in the hospital. Patient has had an endoscopy for similar symptoms earlier this year showing only mild gastritis. He does have a longstanding history of diabetes and diabetic gastroparesis. PAST MEDICAL HISTORY: History of end-stage renal disease, dialysis, hypertension, diabetes, diabetic gastroparesis, recurrent nausea and vomiting. FAMILY HISTORY: Noncontributory. SOCIAL HISTORY: Patient does not smoke or drink. ALLERGIES: None except aspirin. REVIEW OF SYSTEMS: Otherwise negative. PHYSICAL EXAMINATION: GENERAL: Thin, man, in no distress. HEENT: Normocephalic and atraumatic. CHEST: Revealed clear breath sounds. CARDIOVASCULAR: Revealed a regular rate. ABDOMEN: Soft and nondistended. EXTREMITIES: Revealed no edema. LABORATORY DATA: Noted. ASSESSMENT: This patient has history of dark emesis, which he has had on previous admissions well. However, he does not show a clinical evidence of vomiting disorder. I would therefore observe the patient conservatively for now. An upper GI series can be done both to evaluate the upper GI tract for ulcers, but also to look at his upper GI tract function and contractility. RECOMMENDATIONS: Per above discussion and per orders written in the chart. Thank you for asking me to participate in the care of this patient. Alexander Curry M.D. DR: KENYATTA JOB#: [id number] CC:
--- NOTE | 2020-08-04 02:15 | Consultation ---
DATE OF CONSULTATION: 08/01/2020 CARDIOLOGY CONSULTATION CONSULTING PHYSICIAN: Shamir Dunlap MD. REQUESTING PHYSICIAN: Ben Ibarra MD. REASON FOR CONSULTATION: Hypertensive urgency. HISTORY OF PRESENT ILLNESS: This is a 30-year-old male, known to this medical team from prior frequent hospitalizations. He has a history of end-stage renal disease on hemodialysis and presents with another episode of uncontrolled nausea and vomiting that has resulted in inadequate ingestion of his oral medications. As a result, his blood pressure is severely elevated. In the emergency room, it was up to 197/129 with a mean of 151, heart rate was 110, respiratory rate was 18 and he was afebrile with adequate oxygen saturation on room air of 98%. The patient notes some recurring vomiting, but no hematemesis. He did have some coffee-ground and black stools. He has had abdominal pain. He has persisting nausea. He has not had any fevers or chills. He also notes chest pain in the sternum and mid epigastric region associated with his vomiting episodes. The patient was unable to take oral antihypertensives for up to two days prior to his presentation because of these symptoms. There was a COVID-19 swab on July 28 that was negative. The patient also apparently had a recent stress test at [facility], that was reportedly normal. PAST MEDICAL HISTORY: Hypertension, insulin-requiring diabetes mellitus, gastroparesis, diabetic neuropathy, hypertension with hypertensive heart disease, end-stage renal disease, HIV positive, right upper extremity AV fistula. ALLERGIES: Include aspirin. MEDICATIONS: Prior to admission and prescribed during prior hospitalizations are reviewed and reconciled. FAMILY HISTORY: Noncontributory. SOCIAL HISTORY: Negative for smoking, alcohol, or substance abuse. PHYSICAL EXAMINATION: VITAL SIGNS: As noted. HEENT: Conjunctivae are pink. Oropharynx clear. NECK: Supple. Jugular venous pressure normal. Eye grounds are not visualized. LUNGS: Clear. CARDIAC: Regular rhythm rate. Normal S1, S2 with a fourth heart sound and a sustained point of maximum impulse. Palpable bruit over right upper extremity AV fistula site. ABDOMEN: Soft, mildly distended. It is tender in the midepigastric region mostly, but also diffusely. There is no rebound. EXTREMITIES: Without clubbing, cyanosis or edema. NEUROLOGIC: Limited neurologic exam is nonfocal. EKG reveals sinus rhythm. With some peaking in the T-waves and QT interval corrected of 0.492. Heart rate that should be sinus tachycardia. Troponin is 0.042. Potassium 4.6, hemoglobin 11.6 and abdominal x-ray with nonspecific bowel gas pattern. IMPRESSION: 1. Cyclic vomiting. Likely due to gastroparesis. 2. Insulin-requiring diabetes with neuropathy. 3. Malignant range blood pressure and hypertensive urgency. 4. End-stage renal disease on hemodialysis. 5. Abnormal electrocardiogram, likely due to GI symptomatology. 6. Metabolic derangements. PLAN: 1. Cardiac monitoring, antiemetics, and cautious hydration, IV and topical antihypertensives. Continue cardiac monitoring. Insulin coverage by sliding scale. 2. Hemodialysis with limited ultrafiltration based on clinical parameters per bottling line operator. Shamir Dunlap M.D. DR: ASIM JOB#: [id number] CC:
[2020-08-04] MEDS: HydrALAZINE 50mg tab ORAL SCH ×3 (05:26→21:57)
[2020-08-04] MEDS: NovoLOG Insulin Flexpen SUBQ SCH ×7 (05:53→21:00)
--- NOTE | 2020-08-04 07:46 | General Progress Note ---
Subjective ROS Limited/Unobtainable: No Constitutional: Reports: malaise, weakness HEENT: Reports: no symptoms Cardiovascular: Reports: no symptoms Respiratory: Reports: no symptoms Gastrointestinal/Abdominal: Reports: abdominal pain Genitourinary: Reports: no symptoms Neurologic/Psychiatric: Reports: no symptoms Endocrine: Reports: no symptoms Hematologic/Lymphatic: Reports: no symptoms Allergies: Coded Allergies: ASPIRIN (Unverified Allergy, Unknown, 02/08/20) All Systems: reviewed and negative except above Subjective no events. c/o abd pain. per pt coffee ground emesis and black stools at home. no signs of bleeding. GI appreciated. Objective Last 24 Hour Vital Signs Date Time Temp Pulse Resp B/P (MAP) Pulse Ox O2 Delivery O2 Flow Rate FiO2 08/04/20 04:00 97.3 99 18 139/93 (108) 100 08/04/20 00:00 96.8 106 18 156/99 (118) 100 97 08/04/20 00:00 105 08/03/20 22:48 159/99 08/03/20 22:47 107 159/99 08/03/20 21:00 Nasal Cannula 2.0 08/03/20 20:00 102 08/03/20 20:00 99.0 106 20 150/80 (103) 98 107 08/03/20 16:00 98.1 106 18 148/86 (106) 98 08/03/20 16:00 106 08/03/20 14:08 145/76 08/03/20 12:00 106 08/03/20 12:00 98.2 108 18 145/76 (99) 100 08/03/20 09:00 Room Air 08/03/20 08:18 132/74 08/03/20 08:17 114 132/74 08/03/20 08:16 132/74 08/03/20 08:00 107 08/03/20 08:00 97.5 114 16 135/72 (93) 98 Intake and Output 08/03/20 08/04/20 19:00 07:00 Intake Total 420 ml 360 ml Output Total 3000 ml Balance -2580 ml 360 ml Intake Oral 420 ml 360 ml Hemodialysis UF 3000 ml Laboratory Tests 08/03/20 14:52: POC Whole Blood Glucose 48L 08/03/20 22:50: POC Whole Blood Glucose 279H Height (Feet): 5 Height (Inches): 10.00 Weight (Pounds): 140 General Appearance: WD/WN, alert EENT: normal ENT inspection Neck: normal alignment Cardiovascular: normal rate, regular rhythm Respiratory/Chest: chest wall non-tender, lungs clear, normal breath sounds Abdomen: normal bowel sounds, non tender, soft, no organomegaly Edema: no edema noted Leg (L), no edema noted Leg (R) 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, no motor/sensory deficits, abnormal gait, alert, oriented x 3 Assessment/Plan Problem List: (1) GIB (gastrointestinal bleeding) ICD Codes: K92.2 - Gastrointestinal hemorrhage, unspecified SNOMED: 50858411 (2) Hypertensive emergency ICD Codes: I16.1 - Hypertensive emergency SNOMED: 436947649444670 (3) ESRD on dialysis ICD Codes: N18.6 - End stage renal disease; Z99.2 - Dependence on renal dialysis SNOMED: 389045044 (4) Type 1 diabetes ICD Codes: E10.9 - Type 1 diabetes mellitus without complications SNOMED: 16420797 (5) Nausea & vomiting ICD Codes: R11.2 - Nausea with vomiting, unspecified SNOMED: 66085007 (6) Gastroparesis diabeticorum ICD Codes: E11.43 - Type 2 diabetes mellitus with diabetic autonomic (poly)neuropathy; K31.84 - Gastroparesis SNOMED: 15614286, 804082451 (7) HIV (human immunodeficiency virus infection) ICD Codes: B20 - Human immunodeficiency virus [HIV] disease SNOMED: 16020892 Status: stable, progressing Assessment/Plan: cont current rx monitor cbc PPI rx GI eval appreciated pain rx antiemetics upper GI dc planning pending upper GI Ben Ibarra MD Aug 04, 2020 07:46
[2020-08-04 08:17] LABS: BASOPHILS % (AUTO) 2.3 % (0.0-2.0); HEMATOCRIT 30.7 % (42.0-52.0); HEMOGLOBIN 10.5 G/DL (14.2-18.0); LYMPHOCYTES % (AUTO) 25.1 % (20.0-45.0); MEAN CORPUSCULAR VOLUME 97 FL (80-99); MONOCYTES % (AUTO) 8.7 % (1.0-10.0); NEUTROPHILS % (AUTO) 60.9 % (45.0-75.0); PLATELET COUNT 185 K/UL (150-450); RED BLOOD COUNT 3.17 M/UL (4.70-6.10); RED CELL DISTRIBUTION WIDTH 15.8 % (11.6-14.8)
[2020-08-04 08:35] LABS: CALCIUM 8.7 MG/DL (8.5-10.1); CREATININE 9.6 MG/DL (0.55-1.30); POTASSIUM 3.9 MMOL/L (3.5-5.1)
[2020-08-04] MEDS: Benazepril 10mg tab ORAL SCH (08:42)
[2020-08-04] MEDS: Imipramine 10mg tab ORAL SCH (08:42)
[2020-08-04] MEDS: Losartan 50mg tab ORAL SCH (08:42)
[2020-08-04] MEDS: Dolutegravir Sodium 50mg tab ORAL SCH (08:44)
[2020-08-04] MEDS: Levemir Flexpen SUBQ SCH ×2 (09:03→17:31)
[2020-08-04] MEDS: DiphenhydrAMINE 50mg/ml Inj IVP PRN ×2 (13:38→19:40)
--- NOTE | 2020-08-04 14:37 | Surgery Progress Note ---
Surgery Progress Note Subjective Symptoms: improved, tolerating diet, passing flatus, BM, pain decreased Objective Last 24 Hour Vital Signs Date Time Temp Pulse Resp B/P (MAP) Pulse Ox O2 Delivery O2 Flow Rate FiO2 08/04/20 13:07 149/96 08/04/20 12:00 98.6 102 18 149/96 (113) 100 08/04/20 09:00 Nasal Cannula 1.0 08/04/20 08:42 141/84 08/04/20 08:42 106 141/84 08/04/20 08:42 141/84 08/04/20 08:00 98.1 106 18 141/84 (103) 100 08/04/20 04:00 97.3 99 18 139/93 (108) 100 08/04/20 00:00 96.8 106 18 156/99 (118) 100 97 08/04/20 00:00 105 08/03/20 22:48 159/99 08/03/20 22:47 107 159/99 08/03/20 21:00 Nasal Cannula 2.0 08/03/20 20:00 102 08/03/20 20:00 99.0 106 20 150/80 (103) 98 107 08/03/20 16:00 98.1 106 18 148/86 (106) 98 08/03/20 16:00 106 I&O Intake and Output 08/03/20 08/04/20 19:00 07:00 Intake Total 420 ml 360 ml Output Total 3000 ml Balance -2580 ml 360 ml Intake Oral 420 ml 360 ml Hemodialysis UF 3000 ml Cardiovascular: RSR Respiratory: decreased breath sounds Abdomen: non-tender, present bowel sounds Extremities: no edema, no tenderness, no cyanosis Laboratory Tests Test 08/03/20 14:52 08/03/20 22:50 08/04/20 07:30 POC Whole Blood Glucose 48 MG/DL (74-106) L 279 MG/DL (74-106) H White Blood Count 4.0 K/UL (4.8-10.8) L Red Blood Count 3.17 M/UL (4.70-6.10) L Hemoglobin 10.5 G/DL (14.2-18.0) L Hematocrit 30.7 % (42.0-52.0) L Mean Corpuscular Volume 97 FL (80-99) Mean Corpuscular Hemoglobin 33.0 PG (27.0-31.0) H Mean Corpuscular Hemoglobin Concent 34.0 G/DL (32.0-36.0) Red Cell Distribution Width 15.8 % (11.6-14.8) H Platelet Count 185 K/UL (150-450) Mean Platelet Volume 6.8 FL (6.5-10.1) Neutrophils (%) (Auto) 60.9 % (45.0-75.0) Lymphocytes (%) (Auto) 25.1 % (20.0-45.0) Monocytes (%) (Auto) 8.7 % (1.0-10.0) Eosinophils (%) (Auto) 3.0 % (0.0-3.0) Basophils (%) (Auto) 2.3 % (0.0-2.0) H Sodium Level 132 MMOL/L (136-145) L Potassium Level 3.9 MMOL/L (3.5-5.1) Chloride Level 92 MMOL/L (98-107) L Carbon Dioxide Level 29 MMOL/L (21-32) Anion Gap 12 mmol/L (5-15) Blood Urea Nitrogen 30 mg/dL (7-18) H Creatinine 9.6 MG/DL (0.55-1.30) #H Estimat Glomerular Filtration Rate 7.9 mL/min (>60) Glucose Level 311 MG/DL (74-106) H Calcium Level 8.7 MG/DL (8.5-10.1) Plan Problems: (1) Chest pain (2) Abdominal pain Assessment & Plan: This is a 22-year-old male presenting with chest pain radiating to the abdomen. States initially abdominal pain was cramping but now it sharp. States began on Saturday of last week and has been persistent since. States the radiation of the pain from the chest to the abdomen is more recent. Has had history of chronic abdominal pain in the past but states that this episode is different. When asked about compared to last episode when he was admitted states is very different. States he has been having nausea and emesis. States now he is hungry and wants food. No nausea vomiting fever chills at this moment. Labs noted. Imaging reviewed. No obstructive symptoms. Exam fairly benign. No acute surgical intervention planned. Okay for diet. Trend labs. IV fluids potential dehydration. Will follow with serial exams and recommendations. Thank you for let me participate in patient's care (3) Malignant hypertension (arteriolar nephrosclerosis) (4) Diabetic ketoacidosis (5) Hyperglycemia (6) Pancytopenia (7) Renal failure (8) ESRD (end stage renal disease) (9) Abdominal pain (10) HIV (human immunodeficiency virus infection) (11) Gastroparesis diabeticorum (12) Nausea & vomiting (13) Type 1 diabetes (14) ESRD on dialysis (15) Liver hemangioma (16) Hypertensive urgency (17) Noncompliance (18) Uncontrolled hypertension (19) Hypertensive emergency (20) Hypertensive emergency Kenney Friend Aug 04, 2020 14:37
[2020-08-04] MEDS ORDERED: Heparin Sod 1000 units/ml 10ml IV PRN (16:41)
--- NOTE | 2020-08-04 16:42 | Nephrology Progress Note ---
Assessment/Plan Problem List: (1) Hyperglycemia (2) ESRD (end stage renal disease) (3) HIV (human immunodeficiency virus infection) (4) Gastroparesis diabeticorum (5) Hypertensive emergency (6) GIB (gastrointestinal bleeding) (7) Type 1 diabetes Plan bp better, stable on dialysis, still c/o abd pain Subjective Constitutional: Reports: weakness HEENT: Reports: no symptoms Genitourinary: Reports: no symptoms Neurologic/Psychiatric: Reports: no symptoms Subjective less nausea Objective Objective Last 24 Hour Vital Signs Date Time Temp Pulse Resp B/P (MAP) Pulse Ox O2 Delivery O2 Flow Rate FiO2 08/04/20 13:07 149/96 08/04/20 12:00 98.6 102 18 149/96 (113) 100 08/04/20 09:00 Nasal Cannula 1.0 08/04/20 08:42 141/84 08/04/20 08:42 106 141/84 08/04/20 08:42 141/84 08/04/20 08:00 98.1 106 18 141/84 (103) 100 08/04/20 04:00 97.3 99 18 139/93 (108) 100 08/04/20 00:00 96.8 106 18 156/99 (118) 100 97 08/04/20 00:00 105 08/03/20 22:48 159/99 08/03/20 22:47 107 159/99 08/03/20 21:00 Nasal Cannula 2.0 08/03/20 20:00 102 08/03/20 20:00 99.0 106 20 150/80 (103) 98 107 Intake and Output 08/03/20 08/04/20 19:00 07:00 Intake Total 420 ml 360 ml Output Total 3000 ml Balance -2580 ml 360 ml Intake Oral 420 ml 360 ml Hemodialysis UF 3000 ml Laboratory Tests 08/03/20 22:50: POC Whole Blood Glucose 279H 08/04/20 07:30: White Blood Count 4.0L, Red Blood Count 3.17L, Hemoglobin 10.5L, Hematocrit 30.7L, Mean Corpuscular Volume 97, Mean Corpuscular Hemoglobin 33.0H, Mean Corpuscular Hemoglobin Concent 34.0, Red Cell Distribution Width 15.8H, Platelet Count 185, Mean Platelet Volume 6.8, Neutrophils (%) (Auto) 60.9, Lymphocytes (%) (Auto) 25.1, Monocytes (%) (Auto) 8.7, Eosinophils (%) (Auto) 3.0, Basophils (%) (Auto) 2.3H, Sodium Level 132L, Potassium Level 3.9, Chloride Level 92L, Carbon Dioxide Level 29, Anion Gap 12, Blood Urea Nitrogen 30H, Creatinine 9.6#H , Estimat Glomerular Filtration Rate 7.9, Glucose Level 311H, Calcium Level 8.7 Height (Feet): 5 Height (Inches): 10.00 Weight (Pounds): 140 General Appearance: no apparent distress, alert EENT: normal ENT inspection Neck: normal alignment Cardiovascular: normal rate Respiratory/Chest: lungs clear Abdomen: non tender Extremities: no edema 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
--- NOTE | 2020-08-04 22:32 | Cardiology Progress Note ---
Subjective DATE OF SERVICE: Aug 04, 2020 Still c/o abdominal pain. Monitor: sinus/sinus tachycardia He has continued nausea, but no vomiting or CP. BP parameters have improved, but remain quite elevated. Objective Last 24 Hour Vital Signs Date Time Temp Pulse Resp B/P (MAP) Pulse Ox O2 Delivery O2 Flow Rate FiO2 08/04/20 21:57 173/109 08/04/20 21:00 114 173/109 08/04/20 21:00 Nasal Cannula 1.0 08/04/20 20:00 96.9 114 19 173/109 (130) 100 08/04/20 17:26 152/96 (114) 08/04/20 17:24 192/110 08/04/20 16:00 98.2 105 18 192/110 (137) 100 08/04/20 13:07 149/96 08/04/20 12:00 98.6 102 18 149/96 (113) 100 08/04/20 09:00 Nasal Cannula 1.0 08/04/20 08:42 141/84 08/04/20 08:42 106 141/84 08/04/20 08:42 141/84 08/04/20 08:00 98.1 106 18 141/84 (103) 100 08/04/20 04:00 97.3 99 18 139/93 (108) 100 08/04/20 00:00 96.8 106 18 156/99 (118) 100 97 08/04/20 00:00 105 08/03/20 22:48 159/99 08/03/20 22:47 107 159/99 ROS: unchanged from my evaluation of 08/01/20. HEENT: normal ENT inspection RHYTHM: NSR, ST LUNGS: lungs clear bilaterally CARDIAC: normal rate, regular rhythm, normal S1 and S2, tachycardia, gallop/S4 ABDOMEN: normal bowel sounds, soft, tender - diffusely, slightly distended EXTREMITIES: normal range of motion, No edema, other - RUE AV fistula with thrill palpable Laboratory Tests Test 08/03/20 22:50 08/04/20 07:30 08/04/20 20:24 POC Whole Blood Glucose 279 MG/DL (74-106) H 101 MG/DL (74-106) White Blood Count 4.0 K/UL (4.8-10.8) L Red Blood Count 3.17 M/UL (4.70-6.10) L Hemoglobin 10.5 G/DL (14.2-18.0) L Hematocrit 30.7 % (42.0-52.0) L Mean Corpuscular Volume 97 FL (80-99) Mean Corpuscular Hemoglobin 33.0 PG (27.0-31.0) H Mean Corpuscular Hemoglobin Concent 34.0 G/DL (32.0-36.0) Red Cell Distribution Width 15.8 % (11.6-14.8) H Platelet Count 185 K/UL (150-450) Mean Platelet Volume 6.8 FL (6.5-10.1) Neutrophils (%) (Auto) 60.9 % (45.0-75.0) Lymphocytes (%) (Auto) 25.1 % (20.0-45.0) Monocytes (%) (Auto) 8.7 % (1.0-10.0) Eosinophils (%) (Auto) 3.0 % (0.0-3.0) Basophils (%) (Auto) 2.3 % (0.0-2.0) H Sodium Level 132 MMOL/L (136-145) L Potassium Level 3.9 MMOL/L (3.5-5.1) Chloride Level 92 MMOL/L (98-107) L Carbon Dioxide Level 29 MMOL/L (21-32) Anion Gap 12 mmol/L (5-15) Blood Urea Nitrogen 30 mg/dL (7-18) H Creatinine 9.6 MG/DL (0.55-1.30) #H Estimat Glomerular Filtration Rate 7.9 mL/min (>60) Glucose Level 311 MG/DL (74-106) H Calcium Level 8.7 MG/DL (8.5-10.1) Assessment/Plan Assessment/Plan Cyclic vomiting IRDM with Gastroparesis Hx gastritis and GI bleed Hypertensive urgency resolving ESRD Secondary sinus tachycardia HIV + Titrate oral antiHTN regimen further Continuous cardiac monitoring HD with UF per renal Bowel regimen Insulin titration Shamir Dunlap MD Aug 04, 2020 22:32
[2020-08-05] VITALS (7 sets, daily range): BP systolic 135–165; BP diastolic 85–109
[2020-08-05] MEDS: DiphenhydrAMINE 50mg/ml Inj IVP PRN ×3 (03:08→17:07)
[2020-08-05] MEDS: HydrALAZINE 50mg tab ORAL SCH ×3 (05:19→21:08)
[2020-08-05] MEDS: Morphine Sulfate 2mg/ml Inj(IV/IM USE ONLY) IVP PRN ×3 (05:20→21:07)
[2020-08-05] MEDS: NovoLOG Insulin Flexpen SUBQ SCH ×7 (05:43→21:00)
[2020-08-05 06:52] LABS: CALCIUM 9.2 MG/DL (8.5-10.1); CREATININE 11.6 MG/DL (0.55-1.30); POTASSIUM 4.5 MMOL/L (3.5-5.1)
[2020-08-05] MEDS: Benazepril 10mg tab ORAL SCH (09:17)
[2020-08-05] MEDS: Losartan 50mg tab ORAL SCH (09:17)
[2020-08-05] MEDS: Pantoprazole Inj IVP SCH ×2 (09:18→21:09)
[2020-08-05] MEDS: Imipramine 10mg tab ORAL SCH (09:18)
[2020-08-05] MEDS: Levemir Flexpen SUBQ SCH ×2 (09:22→18:00)
[2020-08-05 09:23] LABS: BASOPHILS % (AUTO) 2.4 % (0.0-2.0); EOSINOPHILS % (AUTO) 1.7 % (0.0-3.0); HEMATOCRIT 34.2 % (42.0-52.0); HEMOGLOBIN 11.8 G/DL (14.2-18.0); MEAN CORPUSCULAR VOLUME 95 FL (80-99); MONOCYTES % (AUTO) 11.1 % (1.0-10.0); NEUTROPHILS % (AUTO) 62.8 % (45.0-75.0); PLATELET COUNT 208 K/UL (150-450); RED CELL DISTRIBUTION WIDTH 15.1 % (11.6-14.8); WHITE BLOOD COUNT 3.7 K/UL (4.8-10.8)
--- NOTE | 2020-08-05 09:26 | Nephrology Progress Note ---
Assessment/Plan Problem List: (1) Hyperglycemia (2) ESRD (end stage renal disease) (3) HIV (human immunodeficiency virus infection) (4) Gastroparesis diabeticorum (5) Hypertensive emergency (6) GIB (gastrointestinal bleeding) (7) Type 1 diabetes Plan bp better, stable on dialysis, still c/o abd pain Subjective Constitutional: Reports: weakness HEENT: Reports: no symptoms Genitourinary: Reports: no symptoms Neurologic/Psychiatric: Reports: no symptoms Subjective still nausea Objective Objective Last 24 Hour Vital Signs Date Time Temp Pulse Resp B/P (MAP) Pulse Ox O2 Delivery O2 Flow Rate FiO2 08/05/20 09:17 154/97 08/05/20 09:17 154/97 08/05/20 09:16 115 154/97 08/05/20 05:19 162/104 08/05/20 04:00 98.4 112 18 162/104 (123) 100 08/05/20 01:00 97.7 123 18 165/109 (127) 100 08/05/20 00:00 98.1 119 18 148/100 (116) 96 08/04/20 22:31 96.9 08/04/20 21:57 173/109 08/04/20 21:00 114 173/109 08/04/20 21:00 Nasal Cannula 1.0 08/04/20 20:00 96.9 114 19 173/109 (130) 100 08/04/20 17:26 152/96 (114) 08/04/20 17:24 192/110 08/04/20 16:00 98.2 105 18 192/110 (137) 100 08/04/20 13:07 149/96 08/04/20 12:00 98.6 102 18 149/96 (113) 100 Intake and Output 08/04/20 08/05/20 19:00 07:00 Intake Total 600 ml 50 ml Output Total 50 ml Balance 550 ml 50 ml Intake Oral 600 ml 50 ml Emesis 50 ml # Voids 3 Laboratory Tests 08/04/20 20:24: POC Whole Blood Glucose 101 08/05/20 05:00: Sodium Level 129L, Potassium Level 4.5, Chloride Level 92L, Carbon Dioxide Level 23, Anion Gap 14, Blood Urea Nitrogen 33H, Creatinine 11.6H, Estimat Glomerular Filtration Rate 6.4, Glucose Level 199#H, Calcium Level 9.2 12/18/20 05:36: POC Whole Blood Glucose 211H 08/05/20 09:00: White Blood Count [Pending], Red Blood Count [Pending], Hemoglobin [Pending], Hematocrit [Pending], Mean Corpuscular Volume [Pending], Mean Corpuscular Hemoglobin [Pending], Mean Corpuscular Hemoglobin Concent [Pending], Red Cell Distribution Width [Pending], Platelet Count [Pending], Mean Platelet Volume [Pending], Neutrophils (%) (Auto) [Pending], Lymphocytes (%) (Auto) [Pending], Monocytes (%) (Auto) [Pending], Eosinophils (%) (Auto) [Pending], Basophils (%) (Auto) [Pending] Height (Feet): 5 Height (Inches): 10.00 Weight (Pounds): 140 General Appearance: no apparent distress, alert EENT: normal ENT inspection Neck: normal alignment Cardiovascular: normal rate, regular rhythm Respiratory/Chest: lungs clear Abdomen: non tender Extremities: no edema 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
[2020-08-05] MEDS: Dolutegravir Sodium 50mg tab ORAL SCH (10:34)
--- NOTE | 2020-08-05 12:54 | Surgery Progress Note ---
Surgery Progress Note Subjective Symptoms: improved, tolerating diet, passing flatus, BM, pain decreased Objective Last 24 Hour Vital Signs Date Time Temp Pulse Resp B/P (MAP) Pulse Ox O2 Delivery O2 Flow Rate FiO2 08/05/20 09:17 154/97 08/05/20 09:17 154/97 08/05/20 09:16 115 154/97 08/05/20 09:00 Nasal Cannula 2.0 08/05/20 08:00 98.4 115 18 154/97 (116) 100 08/05/20 05:19 162/104 08/05/20 04:00 98.4 112 18 162/104 (123) 100 08/05/20 01:00 97.7 123 18 165/109 (127) 100 08/05/20 00:00 98.1 119 18 148/100 (116) 96 08/04/20 22:31 96.9 08/04/20 21:57 173/109 08/04/20 21:00 114 173/109 08/04/20 21:00 Nasal Cannula 1.0 08/04/20 20:00 96.9 114 19 173/109 (130) 100 08/04/20 17:26 152/96 (114) 08/04/20 17:24 192/110 08/04/20 16:00 98.2 105 18 192/110 (137) 100 08/04/20 13:07 149/96 I&O Intake and Output 08/04/20 08/05/20 19:00 07:00 Intake Total 600 ml 50 ml Output Total 50 ml Balance 550 ml 50 ml Intake Oral 600 ml 50 ml Emesis 50 ml # Voids 3 Dressing: saturated Cardiovascular: RSR Respiratory: decreased breath sounds Abdomen: non-tender, present bowel sounds Extremities: no edema, no tenderness, no cyanosis Laboratory Tests Test 08/04/20 20:24 08/05/20 05:00 08/05/20 05:36 08/05/20 09:00 POC Whole Blood Glucose 101 MG/DL (74-106) 211 MG/DL (74-106) H Sodium Level 129 MMOL/L (136-145) L Potassium Level 4.5 MMOL/L (3.5-5.1) Chloride Level 92 MMOL/L (98-107) L Carbon Dioxide Level 23 MMOL/L (21-32) Anion Gap 14 mmol/L (5-15) Blood Urea Nitrogen 33 mg/dL (7-18) H Creatinine 11.6 MG/DL (0.55-1.30) H Estimat Glomerular Filtration Rate 6.4 mL/min (>60) Glucose Level 199 MG/DL (74-106) #H Calcium Level 9.2 MG/DL (8.5-10.1) White Blood Count 3.7 K/UL (4.8-10.8) L Red Blood Count 3.60 M/UL (4.70-6.10) L Hemoglobin 11.8 G/DL (14.2-18.0) L Hematocrit 34.2 % (42.0-52.0) L Mean Corpuscular Volume 95 FL (80-99) Mean Corpuscular Hemoglobin 32.6 PG (27.0-31.0) H Mean Corpuscular Hemoglobin Concent 34.4 G/DL (32.0-36.0) Red Cell Distribution Width 15.1 % (11.6-14.8) H Platelet Count 208 K/UL (150-450) Mean Platelet Volume 6.4 FL (6.5-10.1) L Neutrophils (%) (Auto) 62.8 % (45.0-75.0) Lymphocytes (%) (Auto) 22.0 % (20.0-45.0) Monocytes (%) (Auto) 11.1 % (1.0-10.0) H Eosinophils (%) (Auto) 1.7 % (0.0-3.0) Basophils (%) (Auto) 2.4 % (0.0-2.0) H Test 08/05/20 12:26 POC Whole Blood Glucose 178 MG/DL (74-106) H Plan Problems: (1) Chest pain (2) Abdominal pain Assessment & Plan: This is a 22-year-old male presenting with chest pain radiating to the abdomen. States initially abdominal pain was cramping but now it sharp. States began on Saturday of last week and has been persistent since. States the radiation of the pain from the chest to the abdomen is more recent. Has had history of chronic abdominal pain in the past but states that this episode is different. When asked about compared to last episode when he was admitted states is very different. States he has been having nausea and emesis. States now he is hungry and wants food. No nausea vomiting fever chills at this moment. Labs noted. Imaging reviewed. No obstructive symptoms. Exam fa irly benign. No acute surgical intervention planned. Okay for diet. Trend labs. IV fluids potential dehydration. Will follow with serial exams and recommendations. Thank you for let me participate in patient's care (3) Malignant hypertension (arteriolar nephrosclerosis) (4) Diabetic ketoacidosis (5) Hyperglycemia (6) Pancytopenia (7) Renal failure (8) ESRD (end stage renal disease) (9) Abdominal pain (10) HIV (human immunodeficiency virus infection) (11) Gastroparesis diabeticorum (12) Nausea & vomiting (13) Type 1 diabetes (14) ESRD on dialysis (15) Liver hemangioma (16) Hypertensive urgency (17) Noncompliance (18) Uncontrolled hypertension (19) Hypertensive emergency (20) Hypertensive emergency Kenney Friend Aug 05, 2020 12:54
--- NOTE | 2020-08-05 14:02 | General Progress Note ---
Subjective ROS Limited/Unobtainable: No Constitutional: Reports: malaise, weakness HEENT: Reports: no symptoms Cardiovascular: Reports: chest pain Respiratory: Reports: no symptoms Gastrointestinal/Abdominal: Reports: abdominal pain, tarry stools, nausea, vomiting Genitourinary: Reports: no symptoms Neurologic/Psychiatric: Reports: no symptoms Endocrine: Reports: no symptoms Hematologic/Lymphatic: Reports: no symptoms Allergies: Coded Allergies: ASPIRIN (Unverified Allergy, Unknown, 02/08/20) All Systems: reviewed and negative except above Subjective no events. c/o abd pain. +nausea and vomiting(last episode last night.) npo for upper gi. Objective Last 24 Hour Vital Signs Date Time Temp Pulse Resp B/P (MAP) Pulse Ox O2 Delivery O2 Flow Rate FiO2 08/05/20 09:17 154/97 08/05/20 09:17 154/97 08/05/20 09:16 115 154/97 08/05/20 09:00 Nasal Cannula 2.0 08/05/20 08:00 98.4 115 18 154/97 (116) 100 08/05/20 05:19 162/104 08/05/20 04:00 98.4 112 18 162/104 (123) 100 08/05/20 01:00 97.7 123 18 165/109 (127) 100 08/05/20 00:00 98.1 119 18 148/100 (116) 96 08/04/20 22:31 96.9 08/04/20 21:57 173/109 08/04/20 21:00 114 173/109 08/04/20 21:00 Nasal Cannula 1.0 08/04/20 20:00 96.9 114 19 173/109 (130) 100 08/04/20 17:26 152/96 (114) 08/04/20 17:24 192/110 08/04/20 16:00 98.2 105 18 192/110 (137) 100 Intake and Output 08/04/20 08/05/20 19:00 07:00 Intake Total 600 ml 50 ml Output Total 50 ml Balance 550 ml 50 ml Intake Oral 600 ml 50 ml Emesis 50 ml # Voids 3 Laboratory Tests 08/04/20 20:24: POC Whole Blood Glucose 101 08/05/20 05:00: Sodium Level 129L, Potassium Level 4.5, Chloride Level 92L, Carbon Dioxide Level 23, Anion Gap 14, Blood Urea Nitrogen 33H, Creatinine 11.6H, Estimat Glomerular Filtration Rate 6.4, Glucose Level 199#H, Calcium Level 9.2 08/05/20 05:36: POC Whole Blood Glucose 211H 08/05/20 09:00: White Blood Count 3.7L, Red Blood Count 3.60L, Hemoglobin 11.8L, Hematocrit 34.2L, Mean Corpuscular Volume 95, Mean Corpuscular Hemoglobin 32.6H, Mean Corpuscular Hemoglobin Concent 34.4, Red Cell Distribution Width 15.1H, Platelet Count 208, Mean Platelet Volume 6.4L, Neutrophils (%) (Auto) 62.8, Lymphocytes (%) (Auto) 22.0, Monocytes (%) (Auto) 11.1H, Eosinophils (%) (Auto) 1.7, Basophils (%) (Auto) 2.4H 08/05/20 12:26: POC Whole Blood Glucose 178H Height (Feet): 5 Height (Inches): 10.00 Weight (Pounds): 140 Objective General Appearance: WD/WN, alert EENT: normal ENT inspection Neck: normal alignment Cardiovascular: normal rate, regular rhythm Respiratory/Chest: chest wall non-tender, lungs clear, normal breath sounds Abdomen: normal bowel sounds, non tender, soft, no organomegaly Edema: no edema noted Leg (L), no edema noted Leg (R) 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, no motor/sensory deficits, abnormal gait, alert, oriented x 3 Assessment/Plan Problem List: (1) GIB (gastrointestinal bleeding) ICD Codes: K92.2 - Gastrointestinal hemorrhage, unspecified SNOMED: 61333189 (2) Hypertensive emergency ICD Codes: I16.1 - Hypertensive emergency SNOMED: 479419549904069 (3) ESRD on dialysis ICD Codes: N18.6 - End stage renal disease; Z99.2 - Dependence on renal dialysis SNOMED: 898267511 (4) Type 1 diabetes ICD Codes: E10.9 - Type 1 diabetes mellitus without complications SNOMED: 44520846 (5) Nausea & vomiting ICD Codes: R11.2 - Nausea with vomiting, unspecified SNOMED: 37553556 (6) Gastroparesis diabeticorum ICD Codes: E11.43 - Type 2 diabetes mellitus with diabetic autonomic (poly)neuropathy; K31.84 - Gastroparesis SNOMED: 24882499, 023808356 (7) HIV (human immunodeficiency virus infection) ICD Codes: B20 - Human immunodeficiency virus [HIV] disease SNOMED: 08191227 Status: stable, progressing Assessment/Plan: cont current rx monitor cbc PPI rx GI eval appreciated await upper gi pain rx antiemetics upper GI dc planning pending upper GI Ben Ibarra MD Aug 05, 2020 14:02
--- NOTE | 2020-08-05 22:06 | General Progress Note ---
Subjective Allergies: Coded Allergies: ASPIRIN (Unverified Allergy, Unknown, 02/08/20) Subjective above noted c/o abd pain c/o hematemesis (Not witnessed by RN) requesting frequent doses of narcotics refused UGI today Objective Last 24 Hour Vital Signs Date Time Temp Pulse Resp B/P (MAP) Pulse Ox O2 Delivery O2 Flow Rate FiO2 08/05/20 21:09 119 135/85 08/05/20 21:08 135/85 08/05/20 16:00 98.2 118 18 156/104 (121) 100 08/05/20 15:00 138/95 08/05/20 12:00 98.2 118 18 138/95 (109) 100 08/05/20 09:17 154/97 08/05/20 09:17 154/97 08/05/20 09:16 115 154/97 08/05/20 09:00 Nasal Cannula 2.0 08/05/20 08:00 98.4 115 18 154/97 (116) 100 08/05/20 05:19 162/104 08/05/20 04:00 98.4 112 18 162/104 (123) 100 08/05/20 01:00 97.7 123 18 165/109 (127) 100 08/05/20 00:00 98.1 119 18 148/100 (116) 96 08/04/20 22:31 96.9 Intake and Output 08/04/20 08/05/20 19:00 07:00 Intake Total 600 ml 50 ml Output Total 50 ml Balance 550 ml 50 ml Intake Oral 600 ml 50 ml Emesis 50 ml # Voids 3 Laboratory Tests 08/05/20 05:00: Sodium Level 129L, Potassium Level 4.5, Chloride Level 92L, Carbon Dioxide Level 23, Anion Gap 14, Blood Urea Nitrogen 33H, Creatinine 11.6H, Estimat Glomerular Filtration Rate 6.4, Glucose Level 199#H, Calcium Level 9.2 08/05/20 05:36: POC Whole Blood Glucose 211H 08/05/20 09:00: White Blood Count 3.7L, Red Blood Count 3.60L, Hemoglobin 11.8L, Hematocrit 34.2L, Mean Corpuscular Volume 95, Mean Corpuscular Hemoglobin 32.6H, Mean Corpuscular Hemoglobin Concent 34.4, Red Cell Distribution Width 15.1H, Platelet Count 208, Mean Platelet Volume 6.4L, Neutrophils (%) (Auto) 62.8, Lymphocytes (%) (Auto) 22.0, Monocytes (%) (Auto) 11.1H, Eosinophils (%) (Auto) 1.7, Basophils (%) (Auto) 2.4H 08/05/20 12:26: POC Whole Blood Glucose 178H 08/05/20 17:36: POC Whole Blood Glucose 176H 08/05/20 20:59: POC Whole Blood Glucose 94 Height (Feet): 5 Height (Inches): 10.00 Weight (Pounds): 140 Objective WDWN NCAT supple CTA RRR abd soft ND no edema Assessment/Plan Status: stable, progressing Assessment/Plan: Assessment - ? UGI bleed - h/o gastritis per endoscopy - DM with presumed DM gastroparesis - ESRD / HD - HTN Recommendations BID PPI Elevate HOB monitor H&H po as tolerated anti emetics wean off of narcotics Alexander Curry MD Aug 05, 2020 22:06
[2020-08-06] VITALS (7 sets, daily range): BP systolic 109–164; BP diastolic 63–108
[2020-08-06] MEDS: DiphenhydrAMINE 50mg/ml Inj IVP PRN ×4 (01:05→21:30)
--- NOTE | 2020-08-06 01:35 | Cardiology Progress Note ---
Subjective DATE OF SERVICE: Aug 05, 2020 No CP or SOB. Monitor: sinus/sinus tachycardia He has continued nausea, but no vomiting or CP. BP parameters have improved, but remain slightly elevated at times. Objective Last 24 Hour Vital Signs Date Time Temp Pulse Resp B/P (MAP) Pulse Ox O2 Delivery O2 Flow Rate FiO2 08/05/20 21:09 119 135/85 08/05/20 21:08 135/85 08/05/20 20:00 97.3 119 16 135/85 (102) 99 08/05/20 16:00 98.2 118 18 156/104 (121) 100 08/05/20 15:00 138/95 08/05/20 12:00 98.2 118 18 138/95 (109) 100 08/05/20 09:17 154/97 08/05/20 09:17 154/97 08/05/20 09:16 115 154/97 08/05/20 09:00 Nasal Cannula 2.0 08/05/20 08:00 98.4 115 18 154/97 (116) 100 08/05/20 05:19 162/104 08/05/20 04:00 98.4 112 18 162/104 (123) 100 ROS: unchanged from my evaluation of 08/01/20. HEENT: normal ENT inspection RHYTHM: NSR, ST LUNGS: lungs clear bilaterally CARDIAC: normal rate, regular rhythm, normal S1 and S2, tachycardia, gallop/S4 ABDOMEN: normal bowel sounds, soft, tender - diffusely, slightly distended EXTREMITIES: normal range of motion, No edema, other - RUE AV fistula with thrill palpable Laboratory Tests Test 08/05/20 05:00 08/05/20 05:36 08/05/20 09:00 08/05/20 12:26 Sodium Level 129 MMOL/L (136-145) L Potassium Level 4.5 MMOL/L (3.5-5.1) Chloride Level 92 MMOL/L (98-107) L Carbon Dioxide Level 23 MMOL/L (21-32) Anion Gap 14 mmol/L (5-15) Blood Urea Nitrogen 33 mg/dL (7-18) H Creatinine 11.6 MG/DL (0.55-1.30) H Estimat Glomerular Filtration Rate 6.4 mL/min (>60) Glucose Level 199 MG/DL (74-106) #H Calcium Level 9.2 MG/DL (8.5-10.1) POC Whole Blood Glucose 211 MG/DL (74-106) H 178 MG/DL (74-106) H White Blood Count 3.7 K/UL (4.8-10.8) L Red Blood Count 3.60 M/UL (4.70-6.10) L Hemoglobin 11.8 G/DL (14.2-18.0) L Hematocrit 34.2 % (42.0-52.0) L Mean Corpuscular Volume 95 FL (80-99) Mean Corpuscular Hemoglobin 32.6 PG (27.0-31.0) H Mean Corpuscular Hemoglobin Concent 34.4 G/DL (32.0-36.0) Red Cell Distribution Width 15.1 % (11.6-14.8) H Platelet Count 208 K/UL (150-450) Mean Platelet Volume 6.4 FL (6.5-10.1) L Neutrophils (%) (Auto) 62.8 % (45.0-75.0) Lymphocytes (%) (Auto) 22.0 % (20.0-45.0) Monocytes (%) (Auto) 11.1 % (1.0-10.0) H Eosinophils (%) (Auto) 1.7 % (0.0-3.0) Basophils (%) (Auto) 2.4 % (0.0-2.0) H Test 08/05/20 17:36 08/05/20 20:59 POC Whole Blood Glucose 176 MG/DL (74-106) H 94 MG/DL (74-106) Assessment/Plan Assessment/Plan Cyclic vomiting IRDM with Gastroparesis Hx gastritis and GI bleed Hypertensive urgency resolving ESRD Secondary sinus tachycardia HIV + Titrate oral antiHTN regimen further - advance beta mango further and DC furosemide. Discontinue cardiac monitoring HD with UF per renal Bowel regimen Insulin titration Shamir Dunlap MD Aug 06, 2020 01:35
[2020-08-06] MEDS: Morphine Sulfate 2mg/ml Inj(IV/IM USE ONLY) IVP PRN (05:12)
[2020-08-06] MEDS: HydrALAZINE 50mg tab ORAL SCH ×3 (05:12→21:30)
[2020-08-06] MEDS: NovoLOG Insulin Flexpen SUBQ SCH ×7 (06:59→21:00)
[2020-08-06] MEDS: Pantoprazole Inj IVP SCH ×2 (08:44→21:30)
[2020-08-06] MEDS: Imipramine 10mg tab ORAL SCH (08:44)
[2020-08-06] MEDS: Losartan 50mg tab ORAL SCH ×2 (08:45→09:00)
[2020-08-06] MEDS: Benazepril 10mg tab ORAL SCH ×2 (08:45→09:00)
[2020-08-06] MEDS: Dolutegravir Sodium 50mg tab ORAL SCH (08:49)
[2020-08-06] MEDS: Levemir Flexpen SUBQ SCH ×2 (08:49→18:26)
--- NOTE | 2020-08-06 08:59 | General Progress Note ---
Subjective ROS Limited/Unobtainable: No Constitutional: Reports: no symptoms HEENT: Reports: no symptoms Cardiovascular: Reports: no symptoms Respiratory: Reports: no symptoms Gastrointestinal/Abdominal: Reports: nausea Genitourinary: Reports: no symptoms Neurologic/Psychiatric: Reports: no symptoms Endocrine: Reports: no symptoms Hematologic/Lymphatic: Reports: no symptoms Allergies: Coded Allergies: ASPIRIN (Unverified Allergy, Unknown, 02/08/20) All Systems: reviewed and negative except above Subjective no events. c/o abd pain. +nausea. states he vomiting but not observed. upper gi not done yet Objective Last 24 Hour Vital Signs Date Time Temp Pulse Resp B/P (MAP) Pulse Ox O2 Delivery O2 Flow Rate FiO2 08/06/20 08:45 113 164/108 08/06/20 08:45 164/108 08/06/20 08:45 164/108 08/06/20 05:12 164/108 08/06/20 04:00 97.7 113 20 164/108 (126) 100 08/06/20 00:00 98.4 115 20 142/91 (108) 99 08/05/20 21:09 119 135/85 08/05/20 21:08 135/85 08/05/20 21:00 Nasal Cannula 2.0 08/05/20 20:00 97.3 119 16 135/85 (102) 99 08/05/20 16:00 98.2 118 18 156/104 (121) 100 08/05/20 15:00 138/95 08/05/20 12:00 98.2 118 18 138/95 (109) 100 08/05/20 09:17 154/97 08/05/20 09:17 154/97 08/05/20 09:16 115 154/97 08/05/20 09:00 Nasal Cannula 2.0 Intake and Output 08/05/20 08/06/20 19:00 07:00 Intake Total 360 ml Output Total 2000 ml Balance -2000 ml 360 ml Other 360 ml Hemodialysis UF 2000 ml Laboratory Tests 08/05/20 09:00: White Blood Count 3.7L, Red Blood Count 3.60L, Hemoglobin 11.8L, Hematocrit 34.2L, Mean Corpuscular Volume 95, Mean Corpuscular Hemoglobin 32.6H, Mean Corpuscular Hemoglobin Concent 34.4, Red Cell Distribution Width 15.1H, Platelet Count 208, Mean Platelet Volume 6.4L, Neutrophils (%) (Auto) 62.8, Lymphocytes (%) (Auto) 22.0, Monocytes (%) (Auto) 11.1H, Eosinophils (%) (Auto) 1.7, Basophils (%) (Auto) 2.4H 08/05/20 12:26: POC Whole Blood Glucose 178H 08/05/20 17:36: POC Whole Blood Glucose 176H 08/05/20 20:59: POC Whole Blood Glucose 94 08/06/20 06:56: POC Whole Blood Glucose 283H Height (Feet): 5 Height (Inches): 10.00 Weight (Pounds): 140 Objective General Appearance: WD/WN, alert EENT: normal ENT inspection Neck: normal alignment Cardiovascular: normal rate, regular rhythm Respiratory/Chest: chest wall non-tender, lungs clear, normal breath sounds Abdomen: normal bowel sounds, non tender, soft, no organomegaly Edema: no edema noted Leg (L), no edema noted Leg (R) 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, no motor/sensory deficits, abnormal gait, alert, oriented x 3 Assessment/Plan Problem List: (1) GIB (gastrointestinal bleeding) ICD Codes: K92.2 - Gastrointestinal hemorrhage, unspecified SNOMED: 69758123 (2) Hypertensive emergency ICD Codes: I16.1 - Hypertensive emergency SNOMED: 495442870448063 (3) ESRD on dialysis ICD Codes: N18.6 - End stage renal disease; Z99.2 - Dependence on renal dialysis SNOMED: 599908373 (4) Type 1 diabetes ICD Codes: E10.9 - Type 1 diabetes mellitus without complications SNOMED: 52526557 (5) Nausea & vomiting ICD Codes: R11.2 - Nausea with vomiting, unspecified SNOMED: 06151403 (6) Gastroparesis diabeticorum ICD Codes: E11.43 - Type 2 diabetes mellitus with diabetic autonomic (poly)neuropathy; K31.84 - Gastroparesis SNOMED: 07460941, 325395616 (7) HIV (human immunodeficiency virus infection) ICD Codes: B20 - Human immunodeficiency virus [HIV] disease SNOMED: 83509253 Status: stable, progressing Assessment/Plan: cont current rx monitor cbc PPI rx GI eval appreciated await upper gi pain rx antiemetics upper GI CT abd dc planning pending upper GI Ben Ibarra MD Aug 06, 2020 08:59
[2020-08-06] MEDS ORDERED: Heparin Sod 1000 units/ml 10ml IV PRN (09:30)
--- NOTE | 2020-08-06 13:10 | Nephrology Progress Note ---
Assessment/Plan Problem List: (1) Hyperglycemia (2) ESRD (end stage renal disease) (3) HIV (human immunodeficiency virus infection) (4) Gastroparesis diabeticorum (5) Hypertensive emergency (6) GIB (gastrointestinal bleeding) (7) Type 1 diabetes Plan bp better, stable on dialysis, HD 08/06 still c/o abd pain, minimize opiates Subjective Constitutional: Reports: weakness HEENT: Reports: no symptoms Genitourinary: Reports: no symptoms Neurologic/Psychiatric: Reports: no symptoms Subjective still nausea+abdominal pain Objective Objective Last 24 Hour Vital Signs Date Time Temp Pulse Resp B/P (MAP) Pulse Ox O2 Delivery O2 Flow Rate FiO2 08/06/20 12:00 98.3 80 21 137/70 (92) 95 08/06/20 09:00 76 109/63 08/06/20 09:00 109/63 08/06/20 09:00 109/63 08/06/20 09:00 Nasal Cannula 2.0 08/06/20 08:00 97.1 76 20 109/63 (78) 97 08/06/20 05:12 164/108 08/06/20 04:00 97.7 113 20 164/108 (126) 100 08/06/20 00:00 98.4 115 20 142/91 (108) 99 08/05/20 21:09 119 135/85 08/05/20 21:08 135/85 08/05/20 21:00 Nasal Cannula 2.0 08/05/20 20:00 97.3 119 16 135/85 (102) 99 08/05/20 16:00 98.2 118 18 156/104 (121) 100 08/05/20 15:00 138/95 Intake and Output 08/05/20 08/06/20 19:00 07:00 Intake Total 360 ml Output Total 2000 ml Balance -2000 ml 360 ml Other 360 ml Hemodialysis UF 2000 ml Laboratory Tests 08/05/20 17:36: POC Whole Blood Glucose 176H 08/05/20 20:59: POC Whole Blood Glucose 94 08/06/20 06:56: POC Whole Blood Glucose 283H 08/06/20 12:16: POC Whole Blood Glucose 212H Height (Feet): 5 Height (Inches): 10.00 Weight (Pounds): 140 General Appearance: no apparent distress, alert EENT: normal ENT inspection Neck: normal alignment Cardiovascular: normal rate, regular rhythm Respiratory/Chest: lungs clear Abdomen: soft, no organomegaly Extremities: no edema 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
--- NOTE | 2020-08-06 18:31 | Surgery Progress Note ---
Surgery Progress Note Subjective Additional Comments had HD today no n/v tolerating well Objective Last 24 Hour Vital Signs Date Time Temp Pulse Resp B/P (MAP) Pulse Ox O2 Delivery O2 Flow Rate FiO2 08/06/20 16:00 97.1 70 19 116/70 (85) 97 08/06/20 13:32 137/70 08/06/20 12:00 98.3 80 21 137/70 (92) 95 08/06/20 09:00 76 109/63 08/06/20 09:00 109/63 08/06/20 09:00 109/63 08/06/20 09:00 Nasal Cannula 2.0 08/06/20 08:00 97.1 76 20 109/63 (78) 97 08/06/20 05:12 164/108 08/06/20 04:00 97.7 113 20 164/108 (126) 100 08/06/20 00:00 98.4 115 20 142/91 (108) 99 08/05/20 21:09 119 135/85 08/05/20 21:08 135/85 08/05/20 21:00 Nasal Cannula 2.0 08/05/20 20:00 97.3 119 16 135/85 (102) 99 I&O Intake and Output 08/05/20 08/06/20 19:00 07:00 Intake Total 360 ml Output Total 2000 ml Balance -2000 ml 360 ml Other 360 ml Hemodialysis UF 2000 ml Cardiovascular: RSR Respiratory: decreased breath sounds Abdomen: non-tender, present bowel sounds, non-distended Extremities: no tenderness, no cyanosis Laboratory Tests Test 08/05/20 20:59 08/06/20 06:56 08/06/20 12:16 08/06/20 17:02 POC Whole Blood Glucose 94 MG/DL (74-106) 283 MG/DL (74-106) H 212 MG/DL (74-106) H 124 MG/DL (74-106) H Plan Problems: (1) Chest pain (2) Abdominal pain Assessment & Plan: This is a 22-year-old male presenting with chest pain radiating to the abdomen. States initially abdominal pain was cramping but now it sharp. States began on Saturday of last week and has been persistent since. States the radiation of the pain from the chest to the abdomen is more recent. Has had history of chronic abdominal pain in the past but states that this episode is different. When asked about compared to last episode when he was admitted states is very different. States he has been having nausea and emesis. States now he is hungry and wants food. No nausea vomiting fever chills at this moment. Labs noted. Imaging reviewed. No obstructive symptoms. Exam fairly benign. No acute surgical intervention planned. Okay for diet. Trend labs. IV fluids potential dehydration. Will follow with serial exams and recommendations. Thank you for let me participate in patient's care (3) Malignant hypertension (arteriolar nephrosclerosis) (4) Diabetic ketoacidosis (5) Hyperglycemia (6) Pancytopenia (7) Renal failure (8) ESRD (end stage renal disease) (9) Abdominal pain (10) HIV (human immunodeficiency virus infection) (11) Gastroparesis diabeticorum (12) Nausea & vomiting (13) Type 1 diabetes (14) ESRD on dialysis (15) Liver hemangioma (16) Hypertensive urgency (17) Noncompliance (18) Uncontrolled hypertension (19) Hypertensive emergency (20) Hypertensive emergency Kenney Friend Aug 06, 2020 18:31
--- NOTE | 2020-08-06 21:37 | General Progress Note ---
Subjective Allergies: Coded Allergies: ASPIRIN (Unverified Allergy, Unknown, 02/08/20) Subjective above noted comfortable tolerating PO getting narcotics states had N/V Objective Last 24 Hour Vital Signs Date Time Temp Pulse Resp B/P (MAP) Pulse Ox O2 Delivery O2 Flow Rate FiO2 08/06/20 21:30 152/97 08/06/20 21:29 105 152/97 08/06/20 21:27 99.1 105 21 152/97 (115) 97 08/06/20 16:00 97.1 70 19 116/70 (85) 97 08/06/20 13:32 137/70 08/06/20 12:00 98.3 80 21 137/70 (92) 95 08/06/20 09:00 76 109/63 08/06/20 09:00 109/63 08/06/20 09:00 109/63 08/06/20 09:00 Nasal Cannula 2.0 08/06/20 08:00 97.1 76 20 109/63 (78) 97 08/06/20 05:12 164/108 08/06/20 04:00 97.7 113 20 164/108 (126) 100 08/06/20 00:00 98.4 115 20 142/91 (108) 99 Intake and Output 08/05/20 08/06/20 19:00 07:00 Intake Total 360 ml Output Total 2000 ml Balance -2000 ml 360 ml Other 360 ml Hemodialysis UF 2000 ml Laboratory Tests 08/06/20 06:56: POC Whole Blood Glucose 283H 08/06/20 12:16: POC Whole Blood Glucose 212H 08/06/20 17:02: POC Whole Blood Glucose 124H 08/06/20 21:12: POC Whole Blood Glucose 122H Height (Feet): 5 Height (Inches): 10.00 Weight (Pounds): 140 Objective WDWN NCAT supple CTA RRR abd soft ND no edema Assessment/Plan Status: stable, progressing Assessment/Plan: Assessment - N/V, ? partly due to Narcotics - h/o gastritis per endoscopy - DM with presumed DM gastroparesis - ESRD / HD - HTN Recommendations BID PPI Elevate HOB monitor H&H po as tolerated anti emetics wean off of narcotics Alexander Curry MD Aug 06, 2020 21:37
[2020-08-07] VITALS (7 sets, daily range): BP systolic 128–151; BP diastolic 63–91
--- NOTE | 2020-08-07 01:16 | Cardiology Progress Note ---
Subjective DATE OF SERVICE: Aug 06, 2020 No CP or SOB. Monitor: sinus/sinus tachycardia He has continued nausea, but no vomiting or CP. BP parameters have improved, but remain elevated at times. Objective Last 24 Hour Vital Signs Date Time Temp Pulse Resp B/P (MAP) Pulse Ox O2 Delivery O2 Flow Rate FiO2 08/06/20 21:30 152/97 08/06/20 21:29 105 152/97 08/06/20 21:27 99.1 105 21 152/97 (115) 97 08/06/20 21:00 Nasal Cannula 2.0 08/06/20 20:00 99.1 105 21 152/97 (115) 97 08/06/20 16:00 97.1 70 19 116/70 (85) 97 08/06/20 13:32 137/70 08/06/20 12:00 98.3 80 21 137/70 (92) 95 08/06/20 09:00 76 109/63 08/06/20 09:00 109/63 08/06/20 09:00 109/63 08/06/20 09:00 Nasal Cannula 2.0 08/06/20 08:00 97.1 76 20 109/63 (78) 97 08/06/20 05:12 164/108 08/06/20 04:00 97.7 113 20 164/108 (126) 100 ROS: unchanged from my evaluation of 08/01/20. HEENT: normal ENT inspection RHYTHM: NSR, ST LUNGS: lungs clear bilaterally CARDIAC: normal rate, regular rhythm, normal S1 and S2, tachycardia, gallop/S4 ABDOMEN: normal bowel sounds, soft, tender - diffusely, slightly distended EXTREMITIES: normal range of motion, No edema, other - RUE AV fistula with thrill palpable Laboratory Tests Test 08/06/20 06:56 08/06/20 12:16 08/06/20 17:02 08/06/20 21:12 POC Whole Blood Glucose 283 MG/DL (74-106) H 212 MG/DL (74-106) H 124 MG/DL (74-106) H 122 MG/DL (74-106) H Assessment/Plan Assessment/Plan Cyclic vomiting IRDM with Gastroparesis Hx gastritis and GI bleed Hypertensive urgency resolving ESRD Secondary sinus tachycardia HIV + Titrate oral antiHTN regimen further - including beta mango. Discontinue cardiac monitoring HD with UF per renal Bowel regimen Insulin titration Shamir Dunlap MD Aug 07, 2020 01:16
[2020-08-07] MEDS: DiphenhydrAMINE 50mg/ml Inj IVP PRN ×3 (06:10→20:54)
[2020-08-07] MEDS: HydrALAZINE 50mg tab ORAL SCH ×3 (06:11→22:00)
[2020-08-07] MEDS: NovoLOG Insulin Flexpen SUBQ SCH ×7 (07:02→21:00)
[2020-08-07] MEDS: Losartan 50mg tab ORAL SCH (08:22)
[2020-08-07] MEDS: Benazepril 10mg tab ORAL SCH (08:22)
[2020-08-07] MEDS: Pantoprazole Inj IVP SCH ×2 (08:22→20:54)
[2020-08-07] MEDS: Imipramine 10mg tab ORAL SCH (08:23)
[2020-08-07] MEDS: Levemir Flexpen SUBQ SCH ×2 (08:24→17:47)
[2020-08-07] MEDS: Dolutegravir Sodium 50mg tab ORAL SCH (08:26)
--- NOTE | 2020-08-07 11:22 | Diagnostic Imaging Report ---
EXAM: CT Abdomen and Pelvis Without Intravenous Contrast CLINICAL HISTORY: ABD PAIN TECHNIQUE: Axial computed tomography images of the abdomen and pelvis without intravenous contrast. Sagittal and coronal reformatted images were created and reviewed. CTDI is 3.30 mGy and DLP is 177 mGy-cm. One or more of the following dose reduction techniques were used: automated exposure control, adjustment of the mA and/or kV according to patient size, use of iterative reconstruction technique. COMPARISON: No relevant prior studies available. FINDINGS: Lung bases: Linear atelectasis in the left lung base. ABDOMEN: Liver: Unremarkable. Gallbladder and bile ducts: Unremarkable. No calcified stones. No ductal dilation. Pancreas: Unremarkable. No ductal dilation. Spleen: Unremarkable. No splenomegaly. Adrenals: Unremarkable. No mass. Kidneys and ureters: Bilateral punctate nonobstructing nephrolithiasis, with a 1-2 mm stones in both kidneys. No hydronephrosis or hydroureter. Stomach and bowel: Mild wall thickening throughout the descending colon and proximal sigmoid colon. Remainder of the colon appears unremarkable. No abnormally distended loops of small bowel. GE junction and stomach appear unremarkable. PELVIS: Appendix: No findings to suggest acute appendicitis. Bladder: Unremarkable. No stones. Reproductive: The prostate gland and seminal vesicles appear unremarkable. ABDOMEN and PELVIS: Intraperitoneal space: Unremarkable. No free air. No significant fluid collection. Bones/joints: No acute fracture. No dislocation. Soft tissues: Unremarkable. Vasculature: Unremarkable. No abdominal aortic aneurysm. Lymph nodes: Unremarkable. No enlarged lymph nodes. IMPRESSION: 1. Mild wall thickening throughout the descending colon and proximal sigmoid colon. This may be related to underdistention versus a mild colitis. No adjacent inflammatory changes, free air, or fluid collections. 2. Bilateral punctate nonobstructing nephrolithiasis, with a 1-2 mm stones in both kidneys. No hydronephrosis or hydroureter.
--- NOTE | 2020-08-07 12:18 | Surgery Progress Note ---
Surgery Progress Note Subjective Symptoms: improved, tolerating diet - not much , passing flatus Additional Comments pending Ct - noted. no acute findings ? colitis vs underdistention still does not want to eat much no n/v Objective Last 24 Hour Vital Signs Date Time Temp Pulse Resp B/P (MAP) Pulse Ox O2 Delivery O2 Flow Rate FiO2 08/07/20 12:00 97.1 76 20 139/63 (88) 97 08/07/20 09:00 Nasal Cannula 2.0 08/07/20 08:23 94 137/71 08/07/20 08:22 137/71 08/07/20 08:22 137/71 08/07/20 08:00 98.6 94 18 137/71 (93) 96 08/07/20 06:11 151/90 08/07/20 04:00 98.4 92 19 151/90 (110) 96 08/07/20 00:00 98.2 106 23 132/87 (102) 96 08/06/20 21:30 152/97 08/06/20 21:29 105 152/97 08/06/20 21:27 99.1 105 21 152/97 (115) 97 08/06/20 21:00 Nasal Cannula 2.0 08/06/20 20:00 99.1 105 21 152/97 (115) 97 08/06/20 16:00 97.1 70 19 116/70 (85) 97 08/06/20 13:32 137/70 I&O Intake and Output 08/06/20 08/07/20 19:00 07:00 Intake Total 720 ml 210 ml Output Total 2000 ml Balance -1280 ml 210 ml Intake Oral 720 ml 210 ml Hemodialysis UF 2000 ml Cardiovascular: RSR Respiratory: clear Abdomen: soft, non-tender, present bowel sounds Extremities: no tenderness, no cyanosis Laboratory Tests Test 08/06/20 17:02 08/06/20 21:12 08/07/20 06:54 08/07/20 11:26 POC Whole Blood Glucose 124 MG/DL (74-106) H 122 MG/DL (74-106) H 309 MG/DL (74-106) H 299 MG/DL (74-106) H Plan Problems: (1) Chest pain (2) Abdominal pain Assessment & Plan: This is a 22-year-old male presenting with chest pain radiating to the abdomen. States initially abdominal pain was cramping but now it sharp. States began on Saturday of last week and has been persistent since. States the radiation of the pain from the chest to the abdomen is more recent. Has had history of chronic abdominal pain in the past but states that this episode is different. When asked about compared to last episode when he was admitted states is very different. States he has been having nausea and emesis. States now he is hungry and wants food. No nausea vomiting fever chills at this moment. Labs noted. Imaging reviewed. No obstructive symptoms. Exam fairly benign. No acute surgical intervention planned. Okay for diet. Trend labs. IV fluids potential dehydration. Will follow with serial exams and recommendations. Thank you for let me participate in patient's care ABDOMEN: Liver: Unremarkable. Gallbladder and bile ducts: Unremarkable. No calcified stones. No ductal dilation. Pancreas: Unremarkable. No ductal dilation. Spleen: Unremarkable. No splenomegaly. Adrenals: Unremarkable. No mass. Kidneys and ureters: Bilateral punctate nonobstructing nephrolithiasis, with a 1-2 mm stones in both kidneys. No hydronephrosis or hydroureter. Stomach and bowel: Mild wall thickening throughout the descending colon and proximal sigmoid colon. Remainder of the colon appears unremarkable. No abnormally distended loops of small bowel. GE junction and stomach appear unremarkable. PELVIS: Appendix: No findings to suggest acute appendicitis. Bladder: Unremarkable. No stones. Reproductive: The prostate gland and seminal vesicles appear unremarkable. ABDOMEN and PELVIS: Intraperitoneal space: Unremarkable. No free air. No significant fluid collection. Bones/joints: No acute fracture. No dislocation. Soft tissues: Unremarkable. Vasculature: Unremarkable. No abdominal aortic aneurysm. Lymph nodes: Unremarkable. No enlarged lymph nodes. IMPRESSION: 1. Mild wall thickening throughout the descending colon and proximal sigmoid colon. This may be related to underdistention versus a mild colitis. No adjacent inflammatory changes, free air, or fluid collections. 2. Bilateral punctate nonobstructing nephrolithiasis, with a 1-2 mm stones in both kidneys. No hydronephrosis or hydroureter. (3) Malignant hypertension (arteriolar nephrosclerosis) (4) Diabetic ketoacidosis (5) Hyperglycemia (6) Pancytopenia (7) Renal failure (8) ESRD (end stage renal disease) (9) Abdominal pain (10) HIV (human immunodeficiency virus infection) (11) Gastroparesis diabeticorum (12) Nausea & vomiting (13) Type 1 diabetes (14) ESRD on dialysis (15) Liver hemangioma (16) Hypertensive urgency (17) Noncompliance (18) Uncontrolled hypertension (19) Hypertensive emergency (20) Hypertensive emergency Kenney Friend Aug 07, 2020 12:18
--- NOTE | 2020-08-07 13:00 | General Progress Note ---
Subjective Allergies: Coded Allergies: ASPIRIN (Unverified Allergy, Unknown, 02/08/20) Subjective no events. c/o abd pain. +nausea. states he vomiting but not observed. ct abd noted. on norco for pain. per staff minimal po intake Objective Last 24 Hour Vital Signs Date Time Temp Pulse Resp B/P (MAP) Pulse Ox O2 Delivery O2 Flow Rate FiO2 08/07/20 12:00 97.1 76 20 139/63 (88) 97 08/07/20 09:00 Nasal Cannula 2.0 08/07/20 08:23 94 137/71 08/07/20 08:22 137/71 08/07/20 08:22 137/71 08/07/20 08:00 98.6 94 18 137/71 (93) 96 08/07/20 06:11 151/90 08/07/20 04:00 98.4 92 19 151/90 (110) 96 08/07/20 00:00 98.2 106 23 132/87 (102) 96 08/06/20 21:30 152/97 08/06/20 21:29 105 152/97 08/06/20 21:27 99.1 105 21 152/97 (115) 97 08/06/20 21:00 Nasal Cannula 2.0 08/06/20 20:00 99.1 105 21 152/97 (115) 97 08/06/20 16:00 97.1 70 19 116/70 (85) 97 08/06/20 13:32 137/70 Intake and Output 08/06/20 08/07/20 19:00 07:00 Intake Total 720 ml 210 ml Output Total 2000 ml Balance -1280 ml 210 ml Intake Oral 720 ml 210 ml Hemodialysis UF 2000 ml Laboratory Tests 08/06/20 17:02: POC Whole Blood Glucose 124H 08/06/20 21:12: POC Whole Blood Glucose 122H 08/07/20 06:54: POC Whole Blood Glucose 309H 08/07/20 11:26: POC Whole Blood Glucose 299H Height (Feet): 5 Height (Inches): 10.00 Weight (Pounds): 140 Objective General Appearance: WD/WN, alert EENT: normal ENT inspection Neck: normal alignment Cardiovascular: normal rate, regular rhythm Respiratory/Chest: chest wall non-tender, lungs clear, normal breath sounds Abdomen: normal bowel sounds, non tender, soft, no organomegaly Edema: no edema noted Leg (L), no edema noted Leg (R) 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 grossly normal, no motor/sensory deficits, abnormal gait, alert, oriented x 3 Assessment/Plan Problem List: (1) GIB (gastrointestinal bleeding) ICD Codes: K92.2 - Gastrointestinal hemorrhage, unspecified SNOMED: 39856368 (2) Hypertensive emergency ICD Codes: I16.1 - Hypertensive emergency SNOMED: 294924185050597 (3) ESRD on dialysis ICD Codes: N18.6 - End stage renal disease; Z99.2 - Dependence on renal dialysis SNOMED: 385723487 (4) Type 1 diabetes ICD Codes: E10.9 - Type 1 diabetes mellitus without complications SNOMED: 36889265 (5) Nausea & vomiting ICD Codes: R11.2 - Nausea with vomiting, unspecified SNOMED: 38489508 (6) Gastroparesis diabeticorum ICD Codes: E11.43 - Type 2 diabetes mellitus with diabetic autonomic (poly)neuropathy; K31.84 - Gastroparesis SNOMED: 84346003, 374874255 (7) HIV (human immunodeficiency virus infection) ICD Codes: B20 - Human immunodeficiency virus [HIV] disease SNOMED: 23999119 Status: stable, progressing Assessment/Plan: cont current rx monitor cbc PPI rx GI eval appreciated await upper gi pain rx antiemetics upper GI gi follow re: ct ?significance monitor po intake dc planning if tolerating po without vomiting Ben Ibarra MD Aug 07, 2020 13:00
--- NOTE | 2020-08-07 16:59 | General Progress Note ---
Subjective Allergies: Coded Allergies: ASPIRIN (Unverified Allergy, Unknown, 02/08/20) Subjective above noted comfortable, sleeping no N/V since yesterday still with lower abd pain asking for antiemetics today d/w patient re CT results says unable to drink golytely for colonoscopy, but agreed to EGD/flex sig Objective Last 24 Hour Vital Signs Date Time Temp Pulse Resp B/P (MAP) Pulse Ox O2 Delivery O2 Flow Rate FiO2 08/07/20 16:00 97.7 94 20 144/91 (108) 100 08/07/20 13:16 144/97 08/07/20 12:00 97.1 76 20 139/63 (88) 97 08/07/20 09:00 Nasal Cannula 2.0 08/07/20 08:23 94 137/71 08/07/20 08:22 137/71 08/07/20 08:22 137/71 08/07/20 08:00 98.6 94 18 137/71 (93) 96 08/07/20 06:11 151/90 08/07/20 04:00 98.4 92 19 151/90 (110) 96 08/07/20 00:00 98.2 106 23 132/87 (102) 96 08/06/20 21:30 152/97 08/06/20 21:29 105 152/97 08/06/20 21:27 99.1 105 21 152/97 (115) 97 08/06/20 21:00 Nasal Cannula 2.0 08/06/20 20:00 99.1 105 21 152/97 (115) 97 Intake and Output 08/06/20 08/07/20 19:00 07:00 Intake Total 720 ml 210 ml Output Total 2000 ml Balance -1280 ml 210 ml Intake Oral 720 ml 210 ml Hemodialysis UF 2000 ml Laboratory Tests 08/06/20 17:02: POC Whole Blood Glucose 124H 08/06/20 21:12: POC Whole Blood Glucose 122H 08/07/20 06:54: POC Whole Blood Glucose 309H 08/07/20 11:26: POC Whole Blood Glucose 299H 08/07/20 16:33: POC Whole Blood Glucose 191H Height (Feet): 5 Height (Inches): 10.00 Weight (Pounds): 140 Objective WDWN NCAT supple CTA RRR abd soft ND , (+) TTP no edema Assessment/Plan Status: stable, progressing Assessment/Plan: Assessment - N/V - gastroparesis - h/o gastritis per prior endoscopy - DM - (L) sided colonic wall thickening on CT - ? significance - ESRD / HD - HTN Recommendations BID PPI Elevate HOB monitor H&H po as tolerated anti emetics Will consider EGD and Flexible sigmoidoscopy in am (if able to get rapid covid test tonight) Alexander Curry MD Aug 07, 2020 16:59
[2020-08-07] MEDS ORDERED: Sorbitol Solution UD 30ml ORAL SCH (17:30)
--- NOTE | 2020-08-07 17:49 | Nephrology Progress Note ---
Assessment/Plan Problem List: (1) Hyperglycemia (2) ESRD (end stage renal disease) (3) HIV (human immunodeficiency virus infection) (4) Gastroparesis diabeticorum (5) Hypertensive emergency (6) GIB (gastrointestinal bleeding) (7) Type 1 diabetes Plan bp better, stable on dialysis, HD 08/06 still c/o abd pain, minimize opiates, GI eval ongoing Subjective Constitutional: Reports: weakness HEENT: Reports: no symptoms Genitourinary: Reports: no symptoms Neurologic/Psychiatric: Reports: no symptoms Subjective still nausea+abdominal pain Objective Objective Last 24 Hour Vital Signs Date Time Temp Pulse Resp B/P (MAP) Pulse Ox O2 Delivery O2 Flow Rate FiO2 08/07/20 16:00 97.7 94 20 144/91 (108) 100 08/07/20 13:16 144/97 08/07/20 12:00 97.1 76 20 139/63 (88) 97 08/07/20 09:00 Nasal Cannula 2.0 08/07/20 08:23 94 137/71 08/07/20 08:22 137/71 08/07/20 08:22 137/71 08/07/20 08:00 98.6 94 18 137/71 (93) 96 08/07/20 06:11 151/90 08/07/20 04:00 98.4 92 19 151/90 (110) 96 08/07/20 00:00 98.2 106 23 132/87 (102) 96 08/06/20 21:30 152/97 08/06/20 21:29 105 152/97 08/06/20 21:27 99.1 105 21 152/97 (115) 97 08/06/20 21:00 Nasal Cannula 2.0 08/06/20 20:00 99.1 105 21 152/97 (115) 97 Intake and Output 08/06/20 08/07/20 19:00 07:00 Intake Total 720 ml 210 ml Output Total 2000 ml Balance -1280 ml 210 ml Intake Oral 720 ml 210 ml Hemodialysis UF 2000 ml Laboratory Tests 08/06/20 21:12: POC Whole Blood Glucose 122H 08/07/20 06:54: POC Whole Blood Glucose 309H 08/07/20 11:26: POC Whole Blood Glucose 299H 08/07/20 16:33: POC Whole Blood Glucose 191H Height (Feet): 5 Height (Inches): 10.00 Weight (Pounds): 140 General Appearance: no apparent distress, alert EENT: normal ENT inspection Neck: normal alignment Cardiovascular: regular rhythm Respiratory/Chest: lungs clear Abdomen: soft, no organomegaly Extremities: no edema 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
--- NOTE | 2020-08-07 23:03 | Cardiology Progress Note ---
Subjective DATE OF SERVICE: Aug 07, 2020 No CP or SOB. Monitor: sinus/sinus tachycardia He has continued nausea, but no vomiting seen by staff. BP parameters have improved, with no elevations noted today. Objective Last 24 Hour Vital Signs Date Time Temp Pulse Resp B/P (MAP) Pulse Ox O2 Delivery O2 Flow Rate FiO2 08/07/20 22:55 97.7 99 20 128/67 (87) 98 08/07/20 22:00 128/67 08/07/20 20:55 100 131/80 08/07/20 20:00 97.3 100 20 131/80 (97) 98 08/07/20 16:00 97.7 94 20 144/91 (108) 100 08/07/20 13:16 144/97 08/07/20 12:00 97.1 76 20 139/63 (88) 97 08/07/20 09:00 Nasal Cannula 2.0 08/07/20 08:23 94 137/71 08/07/20 08:22 137/71 08/07/20 08:22 137/71 08/07/20 08:00 98.6 94 18 137/71 (93) 96 08/07/20 06:11 151/90 08/07/20 04:00 98.4 92 19 151/90 (110) 96 08/07/20 00:00 98.2 106 23 132/87 (102) 96 ROS: unchanged from my evaluation of 08/01/20. HEENT: normal ENT inspection RHYTHM: NSR, ST LUNGS: lungs clear bilaterally CARDIAC: normal rate, regular rhythm, normal S1 and S2, tachycardia, gallop/S4 ABDOMEN: normal bowel sounds, soft, tender - diffusely, slightly distended EXTREMITIES: normal range of motion, No edema, other - RUE AV fistula with thrill palpable Laboratory Tests Test 08/07/20 06:54 08/07/20 11:26 08/07/20 16:33 08/07/20 21:56 POC Whole Blood Glucose 309 MG/DL (74-106) H 299 MG/DL (74-106) H 191 MG/DL (74-106) H 117 MG/DL (74-106) H Microbiology Date/Time Source Procedure Growth Status 08/07/20 17:20 Nasopharynx SARS-CoV-2 RdRp Gene Assay - Final Complete Assessment/Plan Assessment/Plan Cyclic vomiting seems controlled IRDM with Gastroparesis Hx gastritis and GI bleed Hypertensive urgency resolved ESRD Secondary sinus tachycardia HIV + Maintain current oral antiHTN regimen - including beta mango. HD with UF per renal Bowel regimen Insulin titration DC plan post HD if stable Shamir Dunlap MD Aug 07, 2020 23:03
[2020-08-08] VITALS (11 sets, daily range): BP systolic 113–159; BP diastolic 65–101
[2020-08-08] MEDS: DiphenhydrAMINE 50mg/ml Inj IVP PRN ×4 (03:10→22:54)
[2020-08-08] MEDS ORDERED: Fleet's Mineral Oil Enema RECTAL SCH ×2 (05:00→06:30)
[2020-08-08] MEDS: HydrALAZINE 50mg tab ORAL SCH ×3 (06:23→22:00)
[2020-08-08] MEDS: NovoLOG Insulin Flexpen SUBQ SCH ×7 (06:27→20:57)
--- NOTE | 2020-08-08 07:53 | Nephrology Progress Note ---
Assessment/Plan Problem List: (1) Hyperglycemia (2) ESRD (end stage renal disease) (3) HIV (human immunodeficiency virus infection) (4) Gastroparesis diabeticorum (5) Hypertensive emergency (6) GIB (gastrointestinal bleeding) (7) Type 1 diabetes Plan bp better, stable on dialysis, HD 08/08 still c/o abd pain, minimize opiates, GI eval ongoing possible egd and flex sig Subjective Constitutional: Reports: weakness HEENT: Reports: no symptoms Genitourinary: Reports: no symptoms Neurologic/Psychiatric: Reports: no symptoms Subjective still nausea+abdominal pain Objective Objective Last 24 Hour Vital Signs Date Time Temp Pulse Resp B/P (MAP) Pulse Ox O2 Delivery O2 Flow Rate FiO2 08/08/20 06:23 142/88 08/08/20 04:00 99.0 99 20 137/67 (90) 99 08/08/20 00:00 97.7 99 20 128/67 (87) 98 08/07/20 22:55 97.7 99 20 128/67 (87) 98 08/07/20 22:00 128/67 08/07/20 21:00 Nasal Cannula 2.0 08/07/20 20:55 100 131/80 08/07/20 20:00 97.3 100 20 131/80 (97) 98 08/07/20 16:00 97.7 94 20 144/91 (108) 100 08/07/20 13:16 144/97 08/07/20 12:00 97.1 76 20 139/63 (88) 97 08/07/20 09:00 Nasal Cannula 2.0 08/07/20 08:23 94 137/71 08/07/20 08:22 137/71 08/07/20 08:22 137/71 08/07/20 08:00 98.6 94 18 137/71 (93) 96 Laboratory Tests 08/07/20 11:26: POC Whole Blood Glucose 299H 08/07/20 16:33: POC Whole Blood Glucose 191H 08/07/20 21:56: POC Whole Blood Glucose 117H 08/08/20 06:24: POC Whole Blood Glucose 170H Height (Feet): 5 Height (Inches): 5.00 Weight (Pounds): 140 General Appearance: alert EENT: normal ENT inspection Neck: normal alignment Cardiovascular: normal rate, regular rhythm Respiratory/Chest: lungs clear Abdomen: soft, no organomegaly Extremities: no edema Neurologic: science consultant II-XII grossly normal Benito Maguire MD Aug 08, 2020 07:53
[2020-08-08] MEDS ORDERED: DiphenhydrAMINE 50mg/ml Inj IVP PRN (08:00)
[2020-08-08] MEDS ORDERED: fentaNYL 100 mcg/2 mL IV PRN (08:00)
[2020-08-08] MEDS ORDERED: Atropine Inj 1mg/10ml Syr IVP PRN (08:00)
[2020-08-08] MEDS ORDERED: Midazolam 2mg/2ml Inj IVP PRN (08:00)
[2020-08-08 08:14] LABS: BASOPHILS % (AUTO) 2.6 % (0.0-2.0); EOSINOPHILS % (AUTO) 5.7 % (0.0-3.0); HEMATOCRIT 29.8 % (42.0-52.0); HEMOGLOBIN 10.1 G/DL (14.2-18.0); MEAN CORPUSCULAR VOLUME 98 FL (80-99); NEUTROPHILS % (AUTO) 59.8 % (45.0-75.0); PLATELET COUNT 151 K/UL (150-450); RED BLOOD COUNT 3.04 M/UL (4.70-6.10); RED CELL DISTRIBUTION WIDTH 14.7 % (11.6-14.8)
[2020-08-08 08:25] LABS: CALCIUM 8.9 MG/DL (8.5-10.1); CREATININE 11.5 MG/DL (0.55-1.30); POTASSIUM 4.8 MMOL/L (3.5-5.1)
--- NOTE | 2020-08-08 08:28 | Anethesia Preoperative Eval ---
Anesthesia Pre-op PMH/ROS General Date of Evaluation: Aug 08, 2020 Time of Evaluation: 08:24 Anesthesiologist: susu ASA Score: ASA 4 Mallampati Score Class I : Soft palate, uvula, fauces, pillars visible Class II: Soft palate, uvula, fauces visible Class III: Soft palate, base of uvula visible Class IV: Only hard plate visible Mallampati Classification: Class II Surgeon: rhiannon Diagnosis: abdominal pain, gi bleed Surgical Procedure: egd, flexible sigmoidoscopy Anesthesia History: none Social History: smoking - nonsmoker Family History: no anesthesia problems Allergies: Coded Allergies: ASPIRIN (Unverified Allergy, Unknown, 02/08/20) Medications: see eMAR Patient NPO?: Yes Past Medical History Cardiovascular: Reports: HTN - malignant, other - chest pain Gastrointestinal/Genitourinary: Reports: ESRD, other - liver hemangioma, gastroparesis, nausea/vomiting, gi bleed Neurologic/Psychiatric: Reports: other - noncompliance Endocrine: Reports: DM - type 1 Hematology/Immune: Reports: other - pancytopenia, hiv+, Anesthesia Pre-op Phys. Exam Physician Exam Last Vital Signs Date Time Temp Pulse Resp B/P (MAP) Pulse Ox O2 Delivery O2 Flow Rate FiO2 08/08/20 06:23 142/88 08/08/20 04:00 99.0 99 20 99 08/07/20 21:00 Nasal Cannula 2.0 Constitutional: NAD Neurologic: CN 2-12 intact Cardiovascular: RRR Respiratory: CTA Gastrointestinal: S/NT/ND Airway Exam Mallampati Score: Class II MO: limited Neck: flexible TMD: 2fb ROM: limited Anesthesia Pre-op A/P Labs Microbiology Date/Time Source Procedure Growth Status 08/07/20 17:20 Nasopharynx SARS-CoV-2 RdRp Gene Assay - Final Complete 08/01/20 19:10 Rectum - Final NO CARBAPENEM-RESISTANT ENTEROBACTERI... Complete Hematology Test 08/08/20 07:55 White Blood Count 4.0 K/UL (4.8-10.8) L Red Blood Count 3.04 M/UL (4.70-6.10) L Hemoglobin 10.1 G/DL (14.2-18.0) L Hematocrit 29.8 % (42.0-52.0) L Mean Corpuscular Volume 98 FL (80-99) Mean Corpuscular Hemoglobin 33.3 PG (27.0-31.0) H Mean Corpuscular Hemoglobin Concent 34.0 G/DL (32.0-36.0) Red Cell Distribution Width 14.7 % (11.6-14.8) Platelet Count 151 K/UL (150-450) Mean Platelet Volume 7.1 FL (6.5-10.1) Neutrophils (%) (Auto) 59.8 % (45.0-75.0) Lymphocytes (%) (Auto) 22.0 % (20.0-45.0) Monocytes (%) (Auto) 10.0 % (1.0-10.0) Eosinophils (%) (Auto) 5.7 % (0.0-3.0) H Basophils (%) (Auto) 2.6 % (0.0-2.0) H Chemistry Test 08/07/20 11:26 08/07/20 16:33 08/07/20 21:56 08/08/20 06:24 POC Whole Blood Glucose 299 MG/DL (74-106) H 191 MG/DL (74-106) H 117 MG/DL (74-106) H 170 MG/DL (74-106) H Test 08/08/20 07:55 Sodium Level Pending Potassium Level Pending Chloride Level Pending Carbon Dioxide Level Pending Blood Urea Nitrogen Pending Creatinine Pending Estimat Glomerular Filtration Rate Pending Glucose Level Pending Calcium Level Pending Risk Assessment & Plan Assessment: asa4 Plan: mac Status Change Before Surgery: No Pre-Antibiotics Drug: Dai Paredes MD Aug 08, 2020 08:28
[2020-08-08] MEDS ORDERED: Lidocaine 1% MPF 10mg/ml 5ml ONE (08:30)
--- NOTE | 2020-08-08 08:34 | General Progress Note ---
Subjective ROS Limited/Unobtainable: No Constitutional: Reports: malaise, weakness HEENT: Reports: no symptoms Cardiovascular: Reports: no symptoms Respiratory: Reports: no symptoms Gastrointestinal/Abdominal: Reports: abdominal pain, nausea Genitourinary: Reports: no symptoms Neurologic/Psychiatric: Reports: no symptoms Endocrine: Reports: no symptoms Hematologic/Lymphatic: Reports: no symptoms Allergies: Coded Allergies: ASPIRIN (Unverified Allergy, Unknown, 02/08/20) All Systems: reviewed and negative except above Subjective no events. c/o abd pain and nausea. taking prep for endoscopy. asking for iv pain meds. getting benadryl for itching Objective Last 24 Hour Vital Signs Date Time Temp Pulse Resp B/P (MAP) Pulse Ox O2 Delivery O2 Flow Rate FiO2 08/08/20 06:23 142/88 08/08/20 04:00 99.0 99 20 137/67 (90) 99 08/08/20 00:00 97.7 99 20 128/67 (87) 98 08/07/20 22:55 97.7 99 20 128/67 (87) 98 08/07/20 22:00 128/67 08/07/20 21:00 Nasal Cannula 2.0 08/07/20 20:55 100 131/80 08/07/20 20:00 97.3 100 20 131/80 (97) 98 08/07/20 16:00 97.7 94 20 144/91 (108) 100 08/07/20 13:16 144/97 08/07/20 12:00 97.1 76 20 139/63 (88) 97 08/07/20 09:00 Nasal Cannula 2.0 Laboratory Tests 08/07/20 11:26: POC Whole Blood Glucose 299H 08/07/20 16:33: POC Whole Blood Glucose 191H 08/07/20 21:56: POC Whole Blood Glucose 117H 08/08/20 06:24: POC Whole Blood Glucose 170H 08/08/20 07:55: White Blood Count 4.0L, Red Blood Count 3.04L, Hemoglobin 10.1L, Hematocrit 29.8L, Mean Corpuscular Volume 98, Mean Corpuscular Hemoglobin 33.3H, Mean Corpuscular Hemoglobin Concent 34.0, Red Cell Distribution Width 14.7, Platelet Count 151, Mean Platelet Volume 7.1, Neutrophils (%) (Auto) 59.8, Lymphocytes (%) (Auto) 22.0, Monocytes (%) (Auto) 10.0, Eosinophils (%) (Auto) 5.7H, Basophils (%) (Auto) 2.6H, Sodium Level 132L, Potassium Level 4.8, Chloride Level 96L, Carbon Dioxide Level 25, Anion Gap 11, Blood Urea Nitrogen 31H, Creatinine 11.5H, Estimat Glomerular Filtration Rate 6.4, Glucose Level 205H, Calcium Level 8.9 Height (Feet): 5 Height (Inches): 5.00 Weight (Pounds): 140 Objective General Appearance: WD/WN, alert EENT: normal ENT inspection Neck: normal alignment Cardiovascular: normal rate, regular rhythm Respiratory/Chest: chest wall non-tender, lungs clear, normal breath sounds Abdomen: normal bowel sounds, non tender, soft, no organomegaly Edema: no edema noted Leg (L), no edema noted Leg (R) 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 normal, no motor/sensory deficits, abnormal gait , alert, oriented x 3 Assessment/Plan Problem List: (1) GIB (gastrointestinal bleeding) ICD Codes: K92.2 - Gastrointestinal hemorrhage, unspecified SNOMED: 01012793 (2) Hypertensive emergency ICD Codes: I16.1 - Hypertensive emergency SNOMED: 369974710106513 (3) ESRD on dialysis ICD Codes: N18.6 - End stage renal disease; Z99.2 - Dependence on renal dialysis SNOMED: 929432858 (4) Type 1 diabetes ICD Codes: E10.9 - Type 1 diabetes mellitus without complications SNOMED: 21745724 (5) Nausea & vomiting ICD Codes: R11.2 - Nausea with vomiting, unspecified SNOMED: 70245160 (6) Gastroparesis diabeticorum ICD Codes: E11.43 - Type 2 diabetes mellitus with diabetic autonomic (poly)neuropathy; K31.84 - Gastroparesis SNOMED: 59631094, 807110989 (7) HIV (human immunodeficiency virus infection) ICD Codes: B20 - Human immunodeficiency virus [HIV] disease SNOMED: 19664908 Status: stable, progressing Assessment/Plan: cont current rx bowel prep endoscopy antiemetics PPI oral pain rx HD per renal Ben Ibarra MD Aug 08, 2020 08:34
[2020-08-08] MEDS ORDERED: NS 500ML IVPB ONE (08:54)
--- NOTE | 2020-08-08 08:57 | General Progress Note ---
Subjective Allergies: Coded Allergies: ASPIRIN (Unverified Allergy, Unknown, 02/08/20) Subjective above noted NPO for EGD/Flex Objective Last 24 Hour Vital Signs Date Time Temp Pulse Resp B/P (MAP) Pulse Ox O2 Delivery O2 Flow Rate FiO2 08/08/20 06:23 142/88 08/08/20 04:00 99.0 99 20 137/67 (90) 99 08/08/20 00:00 97.7 99 20 128/67 (87) 98 08/07/20 22:55 97.7 99 20 128/67 (87) 98 08/07/20 22:00 128/67 08/07/20 21:00 Nasal Cannula 2.0 08/07/20 20:55 100 131/80 08/07/20 20:00 97.3 100 20 131/80 (97) 98 08/07/20 16:00 97.7 94 20 144/91 (108) 100 08/07/20 13:16 144/97 08/07/20 12:00 97.1 76 20 139/63 (88) 97 08/07/20 09:00 Nasal Cannula 2.0 Laboratory Tests 08/07/20 11:26: POC Whole Blood Glucose 299H 08/07/20 16:33: POC Whole Blood Glucose 191H 08/07/20 21:56: POC Whole Blood Glucose 117H 08/08/20 06:24: POC Whole Blood Glucose 170H 08/08/20 07:55: White Blood Count 4.0L, Red Blood Count 3.04L, Hemoglobin 10.1L, Hematocrit 29.8L, Mean Corpuscular Volume 98, Mean Corpuscular Hemoglobin 33.3H, Mean Corpuscular Hemoglobin Concent 34.0, Red Cell Distribution Width 14.7, Platelet Count 151, Mean Platelet Volume 7.1, Neutrophils (%) (Auto) 59.8, Lymphocytes (%) (Auto) 22.0, Monocytes (%) (Auto) 10.0, Eosinophils (%) (Auto) 5.7H, Basophils (%) (Auto) 2.6H, Sodium Level 132L, Potassium Level 4.8, Chloride Level 96L, Carbon Dioxide Level 25, Anion Gap 11, Blood Urea Nitrogen 31H, Creatinine 11.5H, Estimat Glomerular Filtration Rate 6.4, Glucose Level 205H, Calcium Level 8.9 Height (Feet): 5 Height (Inches): 5.00 Weight (Pounds): 140 Objective WDWN NCAT supple CTA RRR abd soft ND NT no edema Assessment/Plan Status: stable, progressing Assessment/Plan: Assessment - N/V - gastroparesis - h/o gastritis per prior endoscopy - DM - (L) sided colonic wall thickening on CT - ? significance - ESRD / HD - HTN Recommendations BID PPI will add bethanecol ac for cholinergic support consider d/c tofranil since anti cholinergic Elevate HOB monitor H&H po as tolerated anti emetics EGD and Flexible sigmoidoscopy Alexander Curry MD Aug 08, 2020 08:57
--- NOTE | 2020-08-08 08:57 | Pre-Procedure Note/Attestation ---
Pre-Procedure Note/Attestation Complete Prior to Procedure Planned Procedure: not applicable Procedure Narrative: esophagogastroduodenoscopy flex sig Indications for Procedure Pre-Operative Diagnosis: abd pain N/V abnl CT Attestation I attest that I discussed the nature of the procedure; its benefits; risks and complications; and alternatives (and the risks and benefits of such alte rnatives), prior to the procedure, with the patient (or the patient's legal territory account representative). I attest that, if there was a reasonable possibility of needing a blood transfusion, the patient (or the patient's legal territory account representative) was given the [facility] standardized written summary, pursuant to the Bridger Miky Blood Safety Act ([place] Health and Safety Code # 1645, as amended). I attest that I re-evaluated the patient just prior to the surgery and that there has been no change in the patient's H&P, except as documented below: Alexander Curry MD Aug 08, 2020 08:57
[2020-08-08] MEDS: Levemir Flexpen SUBQ SCH ×2 (09:00→17:59)
[2020-08-08] MEDS: Losartan 50mg tab ORAL SCH (09:00)
[2020-08-08] MEDS: Pantoprazole Inj IVP SCH ×2 (09:00→20:40)
[2020-08-08] MEDS: Benazepril 10mg tab ORAL SCH (09:00)
[2020-08-08] MEDS: Imipramine 10mg tab ORAL SCH (09:00)
--- NOTE | 2020-08-08 09:32 | Endoscopy Procedure Note ---
Endoscopy Procedure Note General Indication for Procedure: abd pain, abnormal CT Procedures Performed: flexible sigmoidoscopy, EGD Operative Findings/Diagnosis: proxuimal gastritis, normal flex to 40 Specimen: yes Pt Tolerated Procedure Well: Yes Estimated Blood Loss: none Anesthesia Anesthesiologist: Erik Jim Anesthesia: MAC Medications Medication Given: see anesthesia record Inserted Devices Implant(s) used?: No GI Core Measures 50 yrs or older w/o bx or poly: Not Applicable 10yrs. F/U recommended: Not Applicable Alexander Curry MD Aug 08, 2020 09:32
--- NOTE | 2020-08-08 09:33 | Brief Operative Note ---
Immediate Post Operative Note Operative Note Chief Complaint: abd pain, abnormalCT Pre-op Diagnosis: abd pain N/V abnl CT Procedure: esophagogastroduodenoscopy flex Surgeon: rhiannon Anesthesiologist: elizabeth ramirez Anesthesia: MAC Specimen: yes Complications: none Condition: stable Fluids: per anesthesia Estimated Blood Loss: none Implant(s) used?: No Alexander Curry MD Aug 08, 2020 09:33
--- NOTE | 2020-08-08 09:47 | Immediate Post-Op Evaluation ---
Immediate Post-Op Evalulation Immediate Post-Op Evalulation Procedure: egd/flexible sigmoidoscopy w/ bx Date of Evaluation: Aug 08, 2020 Time of Evaluation: 09:44 IV Fluids: 250ml 0.9ns Blood Products: none Estimated Blood Loss: negligible Blood Pressure Systolic: 114 Blood Pressure Diastolic: 68 Pulse Rate: 91 Respiratory Rate: 18 O2 Sat by Pulse Oximetry: 100 Temperature (Fahrenheit): 97.6 Pain Score (1-10): 0 Nausea: No Vomiting: No Complications none Patient Status: awake, reacts, patent Hydration Status: adequate Drug: Dai Paredes MD Aug 08, 2020 09:47
--- NOTE | 2020-08-08 09:47 | 48 Hour Post Anesthesia Eval ---
Post Anesthesia Evaluation Procedure: egd/flexible sigmoidoscopy w/ bx Date of Evaluation: Aug 08, 2020 Time of Evaluation: 09:47 Blood Pressure Systolic: 121 0: 77 Pulse Rate: 92 Respiratory Rate: 18 Temperature (Fahrenheit): 97.8 O2 Sat by Pulse Oximetry: 100 Airway: patent Nausea: No Vomiting: No Pain Intensity: 0 Hydration Status: adequate Cardiopulmonary Status: stable Mental Status/LOC: patient returned to baseline Post-Anesthesia Complications: none Follow-up care needed: N/A Dai Jasmine MD Aug 08, 2020 09:47
[2020-08-08] MEDS: Dolutegravir Sodium 50mg tab ORAL SCH (10:50)
--- NOTE | 2020-08-08 17:38 | Surgery Progress Note ---
Surgery Progress Note Subjective Additional Comments taking in liquids but not eating well no n/v +flatus abd stable Objective Last 24 Hour Vital Signs Date Time Temp Pulse Resp B/P (MAP) Pulse Ox O2 Delivery O2 Flow Rate FiO2 08/08/20 17:08 149/87 08/08/20 16:00 99.1 100 19 149/87 (107) 98 08/08/20 12:11 92 18 100 08/08/20 12:00 98.1 65 20 118/65 (82) 97 08/08/20 10:00 97.8 91 22 127/84 100 Nasal Cannula 2 08/08/20 09:50 92 22 121/77 100 Nasal Cannula 2 08/08/20 09:47 91 18 100 08/08/20 09:40 91 15 119/74 100 Nasal Cannula 2 08/08/20 09:35 91 18 113/70 100 Nasal Cannula 2 08/08/20 09:32 97.8 91 24 114/68 100 Nasal Cannula 2 08/08/20 09:00 Nasal Cannula 2.0 08/08/20 08:00 98.8 100 20 124/69 (87) 99 08/08/20 06:23 142/88 08/08/20 04:00 99.0 99 20 137/67 (90) 99 08/08/20 00:00 97.7 99 20 128/67 (87) 98 08/07/20 22:55 97.7 99 20 128/67 (87) 98 08/07/20 22:00 128/67 08/07/20 21:00 Nasal Cannula 2.0 08/07/20 20:55 100 131/80 08/07/20 20:00 97.3 100 20 131/80 (97) 98 Cardiovascular: RSR Respiratory: clear Abdomen: soft, non-tender, present bowel sounds, non-distended Extremities: no edema, no tenderness, no cyanosis Laboratory Tests Test 08/07/20 21:56 08/08/20 06:24 08/08/20 07:55 08/08/20 13:09 POC Whole Blood Glucose 117 MG/DL (74-106) H 170 MG/DL (74-106) H 363 MG/DL (74-106) H White Blood Count 4.0 K/UL (4.8-10.8) L Red Blood Count 3.04 M/UL (4.70-6.10) L Hemoglobin 10.1 G/DL (14.2-18.0) L Hematocrit 29.8 % (42.0-52.0) L Mean Corpuscular Volume 98 FL (80-99) Mean Corpuscular Hemoglobin 33.3 PG (27.0-31.0) H Mean Corpuscular Hemoglobin Concent 34.0 G/DL (32.0-36.0) Red Cell Distribution Width 14.7 % (11.6-14.8) Platelet Count 151 K/UL (150-450) Mean Platelet Volume 7.1 FL (6.5-10.1) Neutrophils (%) (Auto) 59.8 % (45.0-75.0) Lymphocytes (%) (Auto) 22.0 % (20.0-45.0) Monocytes (%) (Auto) 10.0 % (1.0-10.0) Eosinophils (%) (Auto) 5.7 % (0.0-3.0) H Basophils (%) (Auto) 2.6 % (0.0-2.0) H Sodium Level 132 MMOL/L (136-145) L Potassium Level 4.8 MMOL/L (3.5-5.1) Chloride Level 96 MMOL/L (98-107) L Carbon Dioxide Level 25 MMOL/L (21-32) Anion Gap 11 mmol/L (5-15) Blood Urea Nitrogen 31 mg/dL (7-18) H Creatinine 11.5 MG/DL (0.55-1.30) H Estimat Glomerular Filtration Rate 6.4 mL/min (>60) Glucose Level 205 MG/DL (74-106) H Calcium Level 8.9 MG/DL (8.5-10.1) Plan Problems: (1) Chest pain (2) Abdominal pain Assessment & Plan: This is a 22-year-old male presenting with chest pain radiating to the abdomen. States initially abdominal pain was cramping but now it sharp. States began on Saturday of last week and has been persistent since. States the radiation of the pain from the chest to the abdomen is more recent. Has had history of chronic abdominal pain in the past but states that this episode is different. When asked about compared to last episode when he was admitted states is very different. States he has been having nausea and emesis. States now he is hungry and wants food. No nausea vomiting fever chills at th is moment. Labs noted. Imaging reviewed. No obstructive symptoms. Exam fairly benign. No acute surgical intervention planned. Okay for diet. Trend labs. IV fluids potential dehydration. Will follow with serial exams and recommendations. Thank you for let me participate in patient's care ABDOMEN: Liver: Unremarkable. Gallbladder and bile ducts: Unremarkable. No calcified stones. No ductal dilation. Pancreas: Unremarkable. No ductal dilation. Spleen: Unremarkable. No splenomegaly. Adrenals: Unremarkable. No mass. Kidneys and ureters: Bilateral punctate nonobstructing nephrolithiasis, with a 1-2 mm stones in both kidneys. No hydronephrosis or hydroureter. Stomach and bowel: Mild wall thickening throughout the descending colon and proximal sigmoid colon. Remainder of the colon appears unremarkable. No abnormally distended loops of small bowel. GE junction and stomach appear unremarkable. PELVIS: Appendix: No findings to suggest acute appendicitis. Bladder: Unremarkable. No stones. Reproductive: The prostate gland and seminal vesicles appear unremarkable. ABDOMEN and PELVIS: Intraperitoneal space: Unremarkable. No free air. No significant fluid collection. Bones/joints: No acute fracture. No dislocation. Soft tissues: Unremarkable. Vasculature: Unremarkable. No abdominal aortic aneurysm. Lymph nodes: Unremarkable. No enlarged lymph nodes. IMPRESSION: 1. Mild wall thickening throughout the descending colon and proximal sigmoid colon. This may be related to underdistention versus a mild colitis. No adjacent inflammatory changes, free air, or fluid collections. 2. Bilateral punctate nonobstructing nephrolithiasis, with a 1-2 mm stones in both kidneys. No hydronephrosis or hydroureter. (3) Malignant hypertension (arteriolar nephrosclerosis) (4) Diabetic ketoacidosis (5) Hyperglycemia (6) Pancytopenia (7) Renal failure (8) ESRD (end stage renal disease) (9) Abdominal pain (10) HIV (human immunodeficiency virus infection) (11) Gastroparesis diabeticorum (12) Nausea & vomiting (13) Type 1 diabetes (14) ESRD on dialysis (15) Liver hemangioma (16) Hypertensive urgency (17) Noncompliance (18) Uncontrolled hypertension (19) Hypertensive emergency (20) Hypertensive emergency Kenney Friend Aug 08, 2020 17:38
[2020-08-08] MEDS ORDERED: Heparin Sod 1000 units/ml 10ml IV ONE (18:00)
--- NOTE | 2020-08-08 19:00 | Procedure Note ---
DATE OF PROCEDURE: 08/08/2020 PROCEDURE: Upper gastrointestinal endoscopy with biopsy as well as flexible sigmoidoscopy with biopsy. SURGEON: Alexander Curry M.D. ANESTHESIA: Please see the separate anesthesiologist notes for details. PRE-ENDOSCOPIC DIAGNOSES: 1. Upper gastroesophageal bleeding. 2. Abnormal CT scan. POST-ENDOSCOPIC DIAGNOSES: 1. Nonerosive gastritis. 2. Normal sigmoidoscopy. DESCRIPTION OF PROCEDURE: The procedure, its risks, indications, alternatives, and possible complications were explained to the patient and informed consent was obtained. The patient was then sedated in the left lateral decubitus position. A diagnostic upper endoscope was introduced through the oropharynx and advanced to the duodenum. The endoscope was then gradually withdrawn. The mucosa was examined carefully. Examination of the upper gastrointestinal mucosa revealed proximal non-erosive gastritis. There was also a small amount of white plaque material in the lower esophagus, which may have been some fungal organism. Biopsies of the duodenum and stomach and distal esophagus were sent to Pathology for review. The endoscope was removed. The colonoscope was introduced into the rectum and advanced to about 40 cm. The colonoscope was then gradually withdrawn and mucosa examined carefully. No abnormalities were identified. Biopsies of the sigmoid colon were sent to Pathology for review. The colonoscope was removed. The patient was sent to recovery in good condition. COMPLICATIONS: None. ASSESSMENT: There was no abnormality seen to explain either the patient's self-reported history of hematemesis or the abnormality seen on CT scan. The CT scan abnormalities may have just been due to a nondistended colon and the self-reported hematemesis may have been just a perception of the color of emesis by the patient. At this point, the biopsies should be evaluated and the patient will be followed conservatively. Diet will be restarted and proton-pump inhibitor should be continued. RECOMMENDATIONS: Per above discussion and per orders written in the chart. Thank you for asking me to participate in the care of this patient. Alexander Curry M.D. DR: ADELFO JOB#: [id number] CC: FRANTZ
[2020-08-08] MEDS: Bethanechol 10mg Tab ORAL SCH (20:50)
[2020-08-09] VITALS (7 sets, daily range): BP systolic 104–167; BP diastolic 57–108
--- NOTE | 2020-08-09 00:01 | Cardiology Progress Note ---
Subjective DATE OF SERVICE: Aug 08, 2020 S/P panendoscopy; findings notable only for non-erosive gastritis. Monitor: sinus/sinus tachycardia He has continued nausea, but no vomiting seen by staff. BP parameters have improved, with no elevations noted today. Objective Last 24 Hour Vital Signs Date Time Temp Pulse Resp B/P (MAP) Pulse Ox O2 Delivery O2 Flow Rate FiO2 08/08/20 17:08 149/87 08/08/20 16:00 99.1 100 19 149/87 (107) 98 08/08/20 12:11 92 18 100 08/08/20 12:00 98.1 65 20 118/65 (82) 97 08/08/20 10:00 97.8 91 22 127/84 100 Nasal Cannula 2 08/08/20 09:50 92 22 121/77 100 Nasal Cannula 2 08/08/20 09:47 91 18 100 08/08/20 09:40 91 15 119/74 100 Nasal Cannula 2 08/08/20 09:35 91 18 113/70 100 Nasal Cannula 2 08/08/20 09:32 97.8 91 24 114/68 100 Nasal Cannula 2 08/08/20 09:00 Nasal Cannula 2.0 08/08/20 08:00 98.8 100 20 124/69 (87) 99 08/08/20 06:23 142/88 08/08/20 04:00 99.0 99 20 137/67 (90) 99 08/08/20 00:00 97.7 99 20 128/67 (87) 98 ROS: unchanged from my evaluation of 08/01/20. HEENT: normal ENT inspection RHYTHM: NSR, ST LUNGS: lungs clear bilaterally CARDIAC: normal rate, regular rhythm, normal S1 and S2, tachycardia, gallop/S4 ABDOMEN: normal bowel sounds, soft, tender - diffusely, slightly distended EXTREMITIES: normal range of motion, No edema, other - RUE AV fistula with thrill palpable Laboratory Tests Test 08/08/20 06:24 08/08/20 07:55 08/08/20 13:09 POC Whole Blood Glucose 170 MG/DL (74-106) H 363 MG/DL (74-106) H White Blood Count 4.0 K/UL (4.8-10.8) L Red Blood Count 3.04 M/UL (4.70-6.10) L Hemoglobin 10.1 G/DL (14.2-18.0) L Hematocrit 29.8 % (42.0-52.0) L Mean Corpuscular Volume 98 FL (80-99) Mean Corpuscular Hemoglobin 33.3 PG (27.0-31.0) H Mean Corpuscular Hemoglobin Concent 34.0 G/DL (32.0-36.0) Red Cell Distribution Width 14.7 % (11.6-14.8) Platelet Count 151 K/UL (150-450) Mean Platelet Volume 7.1 FL (6.5-10.1) Neutrophils (%) (Auto) 59.8 % (45.0-75.0) Lymphocytes (%) (Auto) 22.0 % (20.0-45.0) Monocytes (%) (Auto) 10.0 % (1.0-10.0) Eosinophils (%) (Auto) 5.7 % (0.0-3.0) H Basophils (%) (Auto) 2.6 % (0.0-2.0) H Sodium Level 132 MMOL/L (136-145) L Potassium Level 4.8 MMOL/L (3.5-5.1) Chloride Level 96 MMOL/L (98-107) L Carbon Dioxide Level 25 MMOL/L (21-32) Anion Gap 11 mmol/L (5-15) Blood Urea Nitrogen 31 mg/dL (7-18) H Creatinine 11.5 MG/DL (0.55-1.30) H Estimat Glomerular Filtration Rate 6.4 mL/min (>60) Glucose Level 205 MG/DL (74-106) H Calcium Level 8.9 MG/DL (8.5-10.1) Microbiology Date/Time Source Procedure Growth Status 08/07/20 17:20 Nasopharynx SARS-CoV-2 RdRp Gene Assay - Final Complete Assessment/Plan Assessment/Plan Cyclic vomiting seems controlled IRDM with Gastroparesis Gastritis and hx GI bleed Hypertensive urgency resolved ESRD Secondary sinus tachycardia recovered HIV + Maintain current oral antiHTN regimen - including beta mango. HD with UF per renal Bowel regimen per GI Insulin titration DC planning Shamir Dunlap MD Aug 09, 2020 00:01
[2020-08-09] MEDS: DiphenhydrAMINE 50mg/ml Inj IVP PRN ×3 (04:56→20:16)
[2020-08-09] MEDS: NovoLOG Insulin Flexpen SUBQ SCH ×7 (05:05→20:24)
[2020-08-09] MEDS: HydrALAZINE 50mg tab ORAL SCH ×3 (06:32→22:00)
[2020-08-09] MEDS: Bethanechol 10mg Tab ORAL SCH ×3 (06:32→17:32)
[2020-08-09 08:28] LABS: CALCIUM 9.4 MG/DL (8.5-10.1); CREATININE 9.3 MG/DL (0.55-1.30); POTASSIUM 4.5 MMOL/L (3.5-5.1)
[2020-08-09] MEDS: Imipramine 10mg tab ORAL SCH (08:50)
[2020-08-09] MEDS: Benazepril 10mg tab ORAL SCH (08:50)
[2020-08-09] MEDS: Losartan 50mg tab ORAL SCH (08:50)
[2020-08-09] MEDS: Pantoprazole Inj IVP SCH (08:51)
[2020-08-09] MEDS: Levemir Flexpen SUBQ SCH ×2 (08:53→17:37)
[2020-08-09] MEDS: Dolutegravir Sodium 50mg tab ORAL SCH (08:56)
--- NOTE | 2020-08-09 09:45 | General Progress Note ---
Subjective ROS Limited/Unobtainable: No Constitutional: Reports: weakness HEENT: Reports: no symptoms Cardiovascular: Reports: no symptoms Respiratory: Reports: no symptoms Gastrointestinal/Abdominal: Reports: nausea Genitourinary: Reports: no symptoms Neurologic/Psychiatric: Reports: no symptoms Endocrine: Reports: no symptoms Hematologic/Lymphatic: Reports: no symptoms Allergies: Coded Allergies: ASPIRIN (Unverified Allergy, Unknown, 02/08/20) All Systems: reviewed and negative except above Subjective neg endoscopy nausea but no vomiting. no fever or chills. no chest pain or sob. Objective Last 24 Hour Vital Signs Date Time Temp Pulse Resp B/P (MAP) Pulse Ox O2 Delivery O2 Flow Rate FiO2 08/09/20 08:52 167/108 08/09/20 08:51 115 167/108 08/09/20 08:50 167/108 08/09/20 08:50 167/108 08/09/20 08:00 98.6 115 18 167/108 (127) 100 08/09/20 06:32 158/100 08/09/20 04:00 97.4 89 18 158/100 (119) 94 08/09/20 00:00 97.9 109 19 129/94 (106) 99 08/08/20 21:00 Nasal Cannula 2.0 08/08/20 20:00 98.0 103 20 159/101 (120) 100 08/08/20 17:08 149/87 08/08/20 16:00 99.1 100 19 149/87 (107) 98 08/08/20 12:11 92 18 100 08/08/20 12:00 98.1 65 20 118/65 (82) 97 08/08/20 10:00 97.8 91 22 127/84 100 Nasal Cannula 2 08/08/20 09:50 92 22 121/77 100 Nasal Cannula 2 08/08/20 09:47 91 18 100 Intake and Output 08/08/20 08/09/20 19:00 07:00 Intake Total 580 ml 360 ml Balance 580 ml 360 ml Intake Oral 300 ml IV Total 280 ml Other 360 ml # Voids 3 Laboratory Tests 08/08/20 13:09: POC Whole Blood Glucose 363H 08/09/20 05:01: POC Whole Blood Glucose 446H 08/09/20 07:13: Sodium Level 133L, Potassium Level 4.5, Chloride Level 94L, Carbon Dioxide Level 25, Anion Gap 14, Blood Urea Nitrogen 26H, Creatinine 9.3H, Estimat Glomerular Filtration Rate 8.2, Glucose Level 396#H, Calcium Level 9.4 08/09/20 08:48: POC Whole Blood Glucose 317H Height (Feet): 5 Height (Inches): 5.00 Weight (Pounds): 140 Objective General Appearance: WD/WN, alert EENT: normal ENT inspection Neck: normal alignment Cardiovascular: normal rate, regular rhythm Respiratory/Chest: chest wall non-tender, lungs clear, normal breath sounds Abdomen: normal bowel sounds, non tender, soft, no organomegaly Edema: no edema noted Leg (L), no edema noted 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 (R) 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, no motor/sensory deficits, abnormal gait, alert, oriented x 3 Assessment/Plan Problem List: (1) GIB (gastrointestinal bleeding) ICD Codes: K92.2 - Gastrointestinal hemorrhage, unspecified SNOMED: 87687281 (2) Hypertensive emergency ICD Codes: I16.1 - Hypertensive emergency SNOMED: 923727650978440 (3) ESRD on dialysis ICD Codes: N18.6 - End stage renal disease; Z99.2 - Dependence on renal dialysis SNOMED: 926913353 (4) Type 1 diabetes ICD Codes: E10.9 - Type 1 diabetes mellitus without complications SNOMED: 90271356 (5) Nausea & vomiting ICD Codes: R11.2 - Nausea with vomiting, unspecified SNOMED: 40029715 (6) Gastroparesis diabeticorum ICD Codes: E11.43 - Type 2 diabetes mellitus with diabetic autonomic (poly)neuropathy; K31.84 - Gastroparesis SNOMED: 17721733, 225143698 (7) HIV (human immunodeficiency virus infection) ICD Codes: B20 - Human immunodeficiency virus [HIV] disease SNOMED: 80974291 Status: stable, progressing Assessment/Plan: cont current rx dc planning antiemetics PPI oral pain rx HD per renal Ben Ibarra MD Aug 09, 2020 09:45
--- NOTE | 2020-08-09 12:09 | Surgery Progress Note ---
Surgery Progress Note Subjective Additional Comments scope results noted no emesis abd discomfort but improving wants to eat more normal food Objective Last 24 Hour Vital Signs Date Time Temp Pulse Resp B/P (MAP) Pulse Ox O2 Delivery O2 Flow Rate FiO2 08/09/20 11:00 98.2 103 18 104/66 (79) 98 08/09/20 09:00 Nasal Cannula 2.0 08/09/20 08:52 167/108 08/09/20 08:51 115 167/108 08/09/20 08:50 167/108 08/09/20 08:50 167/108 08/09/20 08:00 98.6 115 18 167/108 (127) 100 08/09/20 06:32 158/100 08/09/20 04:00 97.4 89 18 158/100 (119) 94 08/09/20 00:00 97.9 109 19 129/94 (106) 99 08/08/20 21:00 Nasal Cannula 2.0 08/08/20 20:00 98.0 103 20 159/101 (120) 100 08/08/20 17:08 149/87 08/08/20 16:00 99.1 100 19 149/87 (107) 98 08/08/20 12:11 92 18 100 I&O Intake and Output 08/08/20 08/09/20 19:00 07:00 Intake Total 580 ml 360 ml Output Total 2500 ml Balance 580 ml -2140 ml Intake Oral 300 ml IV Total 280 ml Other 360 ml Hemodialysis UF 2500 ml # Voids 3 Cardiovascular: RSR Respiratory: clear Abdomen: soft, non-tender, present bowel sounds, non-distended Extremities: no edema, no tenderness, no cyanosis Laboratory Tests Test 08/08/20 13:09 08/09/20 05:01 08/09/20 07:13 08/09/20 08:48 POC Whole Blood Glucose 363 MG/DL (74-106) H 446 MG/DL (74-106) H 317 MG/DL (74-106) H Sodium Level 133 MMOL/L (136-145) L Potassium Level 4.5 MMOL/L (3.5-5.1) Chloride Level 94 MMOL/L (98-107) L Carbon Dioxide Level 25 MMOL/L (21-32) Anion Gap 14 mmol/L (5-15) Blood Urea Nitrogen 26 mg/dL (7-18) H Creatinine 9.3 MG/DL (0.55-1.30) H Estimat Glomerular Filtration Rate 8.2 mL/min (>60) Glucose Level 396 MG/DL (74-106) #H Calcium Level 9.4 MG/DL (8.5-10.1) Test 08/09/20 11:56 POC Whole Blood Glucose 355 MG/DL (74-106) H Plan Problems: (1) Chest pain (2) Abdominal pain Assessment & Plan: This is a 22-year-old male presenting with chest pain radiating to the abdomen. States initially abdominal pain was cramping but now it sharp. States began on Saturday of last week and has been persistent since. States the radiation of the pain from the chest to the abdomen is more recent. Has had history of chronic abdominal pain in the past but states that this episode is different. When asked about compared to last episode when he was admitted states is very different. States he has been having nausea and emesis. States now he is hungry and wants food. No nausea vomiting fever chills at this moment. Labs noted. Imaging reviewed. No obstructive symptoms. Exam fairly benign. No acute surgical intervention planned. Okay for diet. Trend labs. IV fluids potential dehydration. Will follow with serial exams and recommendations. Thank you for let me participate in patient's care d/c planning feels better wants more normal food but understands renal diet ABDOMEN: Liver: Unremarkable. Gallbladder and bile ducts: Unremarkable. No calcified stones. No ductal dilation. Pancreas: Unremarkable. No ductal dilation. Spleen: Unremarkable. No splenomegaly. Adrenals: Unremarkable. No mass. Kidneys and ureters: Bilateral punctate nonobstructing nephrolithiasis, with a 1-2 mm stones in both kidneys. No hydronephrosis or hydroureter. Stomach and bowel: Mild wall thickening throughout the descending colon and proximal sigmoid colon. Remainder of the colon appears unremarkable. No abnormally distended loops of small bowel. GE junction and stomach appear unremarkable. PELVIS: Appendix: No findings to suggest acute appendicitis. Bladder: Unremarkable. No stones. Reproductive: The prostate gland and seminal vesicles appear unremarkable. ABDOMEN and PELVIS: Intraperitoneal space: Unremarkable. No free air. No significant fluid collection. Bones/joints: No acute fracture. No dislocation. Soft tissues: Unremarkable. Vasculature: Unremarkable. No abdominal aortic aneurysm. Lymph nodes: Unremarkable. No enlarged lymph nodes. IMPRESSION: 1. Mild wall thickening throughout the descending colon and proximal sigmoid colon. This may be related to underdistention versus a mild colitis. No adjacent inflammatory changes, free air, or fluid collections. 2. Bilateral punctate nonobstructing nephrolithiasis, with a 1-2 mm stones in both kidneys. No hydronephrosis or hydroureter. (3) Malignant hypertension (arteriolar nephrosclerosis) (4) Diabetic ketoacidosis (5) Hyperglycemia (6) Pancytopenia (7) Renal failure (8) ESRD (end stage renal disease) (9) Abdominal pain (10) HIV (human immunodeficiency virus infection) (11) Gastroparesis diabeticorum (12) Nausea & vomiting (13) Type 1 diabetes (14) ESRD on dialysis (15) Liver hemangioma (16) Hypertensive urgency (17) Noncompliance (18) Uncontrolled hypertension (19) Hypertensive emergency (20) Hypertensive emergency Kenney Friend Aug 09, 2020 12:09
--- NOTE | 2020-08-09 12:53 | General Progress Note ---
Subjective ROS Limited/Unobtainable: Yes Allergies: Coded Allergies: ASPIRIN (Unverified Allergy, Unknown, 02/08/20) Objective Last 24 Hour Vital Signs Date Time Temp Pulse Resp B/P (MAP) Pulse Ox O2 Delivery O2 Flow Rate FiO2 08/09/20 11:00 98.2 103 18 104/66 (79) 98 08/09/20 09:00 Nasal Cannula 2.0 08/09/20 08:52 167/108 08/09/20 08:51 115 167/108 08/09/20 08:50 167/108 08/09/20 08:50 167/108 08/09/20 08:00 98.6 115 18 167/108 (127) 100 08/09/20 06:32 158/100 08/09/20 04:00 97.4 89 18 158/100 (119) 94 08/09/20 00:00 97.9 109 19 129/94 (106) 99 08/08/20 21:00 Nasal Cannula 2.0 08/08/20 20:00 98.0 103 20 159/101 (120) 100 08/08/20 17:08 149/87 08/08/20 16:00 99.1 100 19 149/87 (107) 98 Intake and Output 08/08/20 08/09/20 19:00 07:00 Intake Total 580 ml 360 ml Output Total 2500 ml Balance 580 ml -2140 ml Intake Oral 300 ml IV Total 280 ml Other 360 ml Hemodialysis UF 2500 ml # Voids 3 Laboratory Tests 08/08/20 13:09: POC Whole Blood Glucose 363H 08/09/20 05:01: POC Whole Blood Glucose 446H 08/09/20 07:13: Sodium Level 133L, Potassium Level 4.5, Chloride Level 94L, Carbon Dioxide Level 25, Anion Gap 14, Blood Urea Nitrogen 26H, Creatinine 9.3H, Estimat Glomerular Filtration Rate 8.2, Glucose Level 396#H, Calcium Level 9.4 08/09/20 08:48: POC Whole Blood Glucose 317H 08/09/20 11:56: POC Whole Blood Glucose 355H Height (Feet): 5 Height (Inches): 5.00 Weight (Pounds): 140 General Appearance: no apparent distress EENT: normal ENT inspection Neck: supple Cardiovascular: normal rate Respiratory/Chest: decreased breath sounds Abdomen: normal bowel sounds, non tender, soft Extremities: non-tender Assessment/Plan Status: stable, progressing Assessment/Plan: Assessment - N/V - gastroparesis - h/o gastritis per prior endoscopy - DM - (L) sided colonic wall thickening on CT - ? significance - ESRD / HD - HTN Recommendations BID PPI>>> will change to po bethanecol ac for cholinergic support consider d/c tofranil since anti cholinergic Elevate HOB monitor H&H po as tolerated anti emetics s/p EGD and Flexible sigmoidoscopy Alessandro Kaplan MD Aug 09, 2020 12:53
--- NOTE | 2020-08-09 12:57 | Nephrology Progress Note ---
Assessment/Plan Problem List: (1) Hyperglycemia (2) ESRD (end stage renal disease) (3) HIV (human immunodeficiency virus infection) (4) Gastroparesis diabeticorum (5) Hypertensive emergency (6) GIB (gastrointestinal bleeding) (7) Type 1 diabetes Plan bp better, stable on dialysis, HD 08/08 still c/o abd pain, minimize opiates, GI eval ongoing had egd and flex sig Subjective Constitutional: Reports: weakness Neurologic/Psychiatric: Reports: no symptoms Subjective still nausea+abdominal pain Objective Objective Last 24 Hour Vital Signs Date Time Temp Pulse Resp B/P (MAP) Pulse Ox O2 Delivery O2 Flow Rate FiO2 08/09/20 11:00 98.2 103 18 104/66 (79) 98 08/09/20 09:00 Nasal Cannula 2.0 08/09/20 08:52 167/108 08/09/20 08:51 115 167/108 08/09/20 08:50 167/108 08/09/20 08:50 167/108 08/09/20 08:00 98.6 115 18 167/108 (127) 100 08/09/20 06:32 158/100 08/09/20 04:00 97.4 89 18 158/100 (119) 94 08/09/20 00:00 97.9 109 19 129/94 (106) 99 08/08/20 21:00 Nasal Cannula 2.0 08/08/20 20:00 98.0 103 20 159/101 (120) 100 08/08/20 17:08 149/87 08/08/20 16:00 99.1 100 19 149/87 (107) 98 Intake and Output 08/08/20 08/09/20 19:00 07:00 Intake Total 580 ml 360 ml Output Total 2500 ml Balance 580 ml -2140 ml Intake Oral 300 ml IV Total 280 ml Other 360 ml Hemodialysis UF 2500 ml # Voids 3 Laboratory Tests 08/08/20 13:09: POC Whole Blood Glucose 363H 08/09/20 05:01: POC Whole Blood Glucose 446H 08/09/20 07:13: Sodium Level 133L, Potassium Level 4.5, Chloride Level 94L, Carbon Dioxide Level 25, Anion Gap 14, Blood Urea Nitrogen 26H, Creatinine 9.3H, Estimat Glomerular Filtration Rate 8.2, Glucose Level 396#H, Calcium Level 9.4 08/09/20 08:48: POC Whole Blood Glucose 317H 08/09/20 11:56: POC Whole Blood Glucose 355H Height (Feet): 5 Height (Inches): 5.00 Weight (Pounds): 140 General Appearance: no apparent distress, alert EENT: normal ENT inspection Neck: normal alignment, supple Cardiovascular: regular rhythm Respiratory/Chest: lungs clear Abdomen: non tender 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
[2020-08-10] VITALS: BP 140/90
[2020-08-10] MEDS: DiphenhydrAMINE 50mg/ml Inj IVP PRN ×4 (02:41→23:41)
--- NOTE | 2020-08-10 02:42 | Cardiology Progress Note ---
Subjective DATE OF SERVICE: Aug 09, 2020 S/P panendoscopy 08/08/20; findings notable only for non-erosive gastritis. Monitor: sinus/sinus tachycardia He has continued nausea, but no vomiting seen by staff. BP parameters have improved, with no elevations noted today. However, BP plummeted after multiple meds given this morning Objective Last 24 Hour Vital Signs Date Time Temp Pulse Resp B/P (MAP) Pulse Ox O2 Delivery O2 Flow Rate FiO2 08/10/20 00:00 97.3 99 16 140/90 (107) 99 08/09/20 22:00 139/79 08/09/20 21:00 98 130/77 08/09/20 20:47 Nasal Cannula 2.0 08/09/20 20:00 96.8 98 16 130/77 (94) 100 08/09/20 16:15 103 08/09/20 16:10 61 08/09/20 16:10 98.2 61 18 107/68 (81) 99 08/09/20 15:41 98.2 101 18 114/57 (76) 99 08/09/20 14:00 109/74 08/09/20 11:00 98.2 103 18 104/66 (79) 98 08/09/20 09:00 Nasal Cannula 2.0 08/09/20 08:52 167/108 08/09/20 08:51 115 167/108 08/09/20 08:50 167/108 08/09/20 08:50 167/108 08/09/20 08:00 98.6 115 18 167/108 (127) 100 08/09/20 06:32 158/100 08/09/20 04:00 97.4 89 18 158/100 (119) 94 ROS: unchanged from my evaluation of 08/01/20. HEENT: normal ENT inspection RHYTHM: NSR, ST LUNGS: lungs clear bilaterally CARDIAC: normal rate, regular rhythm, normal S1 and S2, tachycardia, gallop/S4 ABDOMEN: normal bowel sounds, soft, tender - diffusely, slightly distended EXTREMITIES: normal range of motion, No edema, other - RUE AV fistula with thrill palpable Laboratory Tests Test 08/09/20 05:01 08/09/20 07:13 08/09/20 08:48 08/09/20 11:56 POC Whole Blood Glucose 446 MG/DL (74-106) H 317 MG/DL (74-106) H 355 MG/DL (74-106) H Sodium Level 133 MMOL/L (136-145) L Potassium Level 4.5 MMOL/L (3.5-5.1) Chloride Level 94 MMOL/L (98-107) L Carbon Dioxide Level 25 MMOL/L (21-32) Anion Gap 14 mmol/L (5-15) Blood Urea Nitrogen 26 mg/dL (7-18) H Creatinine 9.3 MG/DL (0.55-1.30) H Estimat Glomerular Filtration Rate 8.2 mL/min (>60) Glucose Level 396 MG/DL (74-106) #H Calcium Level 9.4 MG/DL (8.5-10.1) Test 08/09/20 17:10 08/09/20 20:19 POC Whole Blood Glucose 165 MG/DL (74-106) H 140 MG/DL (74-106) H Microbiology Date/Time Source Procedure Growth Status 08/07/20 17:20 Nasopharynx SARS-CoV-2 RdRp Gene Assay - Final Complete Assessment/Plan Assessment/Plan Cyclic vomiting seems controlled IRDM with Gastroparesis Gastritis and hx GI bleed Hypertensive urgency resolved ESRD Secondary sinus tachycardia recovered HIV + Adjust current oral antiHTN regimen - with hold parameter. HD with UF per renal Bowel regimen per GI Insulin titration DC planning Shamir Dunlap MD Aug 10, 2020 02:42
[2020-08-10 04:00] VITALS: BP 155/73
[2020-08-10] MEDS: Bethanechol 10mg Tab ORAL SCH ×3 (05:37→17:08)
[2020-08-10] MEDS: HydrALAZINE 50mg tab ORAL SCH ×3 (05:37→21:20)
[2020-08-10] MEDS: NovoLOG Insulin Flexpen SUBQ SCH ×7 (05:46→20:28)
--- NOTE | 2020-08-10 07:37 | General Progress Note ---
Subjective ROS Limited/Unobtainable: Yes Allergies: Coded Allergies: ASPIRIN (Unverified Allergy, Unknown, 02/08/20) Objective Last 24 Hour Vital Signs Date Time Temp Pulse Resp B/P (MAP) Pulse Ox O2 Delivery O2 Flow Rate FiO2 08/10/20 05:37 155/73 08/10/20 04:00 97.3 99 16 155/73 (100) 100 08/10/20 00:00 97.3 99 16 140/90 (107) 99 08/09/20 22:00 139/79 08/09/20 21:00 98 130/77 08/09/20 20:47 Nasal Cannula 2.0 08/09/20 20:00 99 103 08/09/20 20:00 96.8 98 16 130/77 (94) 100 08/09/20 16:15 103 08/09/20 16:10 61 08/09/20 16:10 98.2 61 18 107/68 (81) 99 08/09/20 15:41 98.2 101 18 114/57 (76) 99 08/09/20 14:00 109/74 08/09/20 11:00 98.2 103 18 104/66 (79) 98 08/09/20 09:00 Nasal Cannula 2.0 08/09/20 08:52 167/108 08/09/20 08:51 115 167/108 08/09/20 08:50 167/108 08/09/20 08:50 167/108 08/09/20 08:00 98.6 115 18 167/108 (127) 100 Intake and Output 08/09/20 08/10/20 19:00 07:00 Intake Total 200 ml Balance 200 ml Intake Oral 200 ml # Voids 2 Laboratory Tests 08/09/20 08:48: POC Whole Blood Glucose 317H 08/09/20 11:56: POC Whole Blood Glucose 355H 08/09/20 17:10: POC Whole Blood Glucose 165H 08/09/20 20:19: POC Whole Blood Glucose 140H 08/10/20 05:43: POC Whole Blood Glucose 223H Height (Feet): 5 Height (Inches): 5.00 Weight (Pounds): 140 General Appearance: alert EENT: PERRL/EOMI Neck: supple Cardiovascular: normal rate Respiratory/Chest: decreased breath sounds Abdomen: hypoactive bowel sounds Extremities: non-tender Assessment/Plan Status: stable, progressing Assessment/Plan: Assessment - N/V - gastroparesis - h/o gastritis per prior endoscopy - DM - (L) sided colonic wall thickening on CT - ? significance - ESRD / HD - HTN Recommendations BID PPI>>> will change to po bethanecol ac for cholinergic support consider d/c tofranil since anti cholinergic Elevate HOB monitor H&H po as tolerated anti emetics s/p EGD and Flexible sigmoidoscopy Alessandro Kaplan MD Aug 10, 2020 07:36
[2020-08-10 08:00] VITALS: BP 139/89
[2020-08-10] MEDS: Dolutegravir Sodium 50mg tab ORAL SCH (08:34)
[2020-08-10] MEDS: Losartan 50mg tab ORAL SCH (08:36)
[2020-08-10] MEDS: Imipramine 10mg tab ORAL SCH (08:36)
[2020-08-10] MEDS: Levemir Flexpen SUBQ SCH ×2 (08:57→17:09)
[2020-08-10 12:00] VITALS: BP 121/72
--- NOTE | 2020-08-10 12:25 | Surgery Progress Note ---
Surgery Progress Note Subjective Additional Comments dizzy with physical therapy no n/v gi input noted and appreciated bp noted Objective Last 24 Hour Vital Signs Date Time Temp Pulse Resp B/P (MAP) Pulse Ox O2 Delivery O2 Flow Rate FiO2 08/10/20 09:00 Nasal Cannula 2.0 08/10/20 08:00 97.9 100 16 139/89 (106) 100 08/10/20 05:37 155/73 08/10/20 04:00 97.3 99 16 155/73 (100) 100 08/10/20 00:00 97.3 99 16 140/90 (107) 99 08/09/20 22:00 139/79 08/09/20 21:00 98 130/77 08/09/20 20:47 Nasal Cannula 2.0 08/09/20 20:00 99 103 08/09/20 20:00 96.8 98 16 130/77 (94) 100 08/09/20 16:15 103 08/09/20 16:10 61 08/09/20 16:10 98.2 61 18 107/68 (81) 99 08/09/20 15:41 98.2 101 18 114/57 (76) 99 08/09/20 14:00 109/74 I&O Intake and Output 08/09/20 08/10/20 19:00 07:00 Intake Total 200 ml Balance 200 ml Intake Oral 200 ml # Voids 2 Cardiovascular: RSR Respiratory: decreased breath sounds Abdomen: soft, non-tender, present bowel sounds, non-distended Extremities: no edema, no tenderness, no cyanosis Laboratory Tests Test 08/09/20 17:10 08/09/20 20:19 08/10/20 05:43 POC Whole Blood Glucose 165 MG/DL (74-106) H 140 MG/DL (74-106) H 223 MG/DL (74-106) H Plan Problems: (1) Chest pain (2) Abdominal pain Assessment & Plan: This is a 22-year-old male presenting with chest pain radiating to the abdomen. States initially abdominal pain was cramping but now it sharp. States began on Saturday of last week and has been persistent since. States the radiation of the pain from the chest to the abdomen is more recent. Has had history of chronic abdominal pain in the past but states that this episode is different. When asked about compared to last episode when he was admitted states is very different. States he has been having nausea and emesis. States now he is hungry and wants food. No nausea vomiting fever chills at this moment. Labs noted. Imaging reviewed. No obstructive symptoms. Exam fairly benign. No acute surgical intervention planned. Okay for diet. Trend labs. IV fluids potential dehydration. Will follow with serial exams and recommendations. Thank you for let me participate in patient's care d/c planning feels better wants more normal food but understands renal diet ABDOMEN: Liver: Unremarkable. Gallbladder and bile ducts: Unremarkable. No calcified stones. No ductal dilation. Pancreas: Unremarkable. No ductal dilation. Spleen: Unremarkable. No splenomegaly. Adrenals: Unremarkable. No mass. Kidneys and ureters: Bilateral punctate nonobstructing nephrolithiasis, with a 1-2 mm stones in both kidneys. No hydronephrosis or hydroureter. Stomach and bowel: Mild wall thickening throughout the descending colon and proximal sigmoid colon. Remainder of the colon appears unremarkable. No abnormally distended loops of small bowel. GE junction and stomach appear unremarkable. PELVIS: Appendix: No findings to suggest acute appendicitis. Bladder: Unremarkable. No stones. Reproductive: The prostate gland and seminal vesicles appear unremarkable. ABDOMEN and PELVIS: Intraperitoneal space: Unremarkable. No free air. No significant fluid collection. Bones/joints: No acute fracture. No dislocation. Soft tissues: Unremarkable. Vasculature: Unremarkable. No abdominal aortic aneurysm. Lymph nodes: Unremarkable. No enlarged lymph nodes. IMPRESSION: 1. Mild wall thickening throughout the descending colon and proximal sigmoid colon. This may be related to underdistention versus a mild colitis. No adjacent inflammatory changes, free air, or fluid collections. 2. Bilateral punctate nonobstructing nephrolithiasis, with a 1-2 mm stones in both kidneys. No hydronephrosis or hydroureter. (3) Malignant hypertension (arteriolar nephrosclerosis) (4) Diabetic ketoacidosis (5) Hyperglycemia (6) Pancytopenia (7) Renal failure (8) ESRD (end stage renal disease) (9) Abdominal pain (10) HIV (human immunodeficiency virus infection) (11) Gastroparesis diabeticorum (12) Nausea & vomiting (13) Type 1 diabetes (14) ESRD on dialysis (15) Liver hemangioma (16) Hypertensive urgency (17) Noncompliance (18) Uncontrolled hypertension (19) Hypertensive emergency (20) Hypertensive emergency Benyamini,Kenney Aug 10, 2020 12:25
[2020-08-10 16:00] VITALS: BP 112/82
--- NOTE | 2020-08-10 17:00 | General Progress Note ---
Subjective ROS Limited/Unobtainable: No Constitutional: Reports: malaise, weakness HEENT: Reports: no symptoms Cardiovascular: Reports: no symptoms Respiratory: Reports: no symptoms Gastrointestinal/Abdominal: Reports: no symptoms Genitourinary: Reports: no symptoms Neurologic/Psychiatric: Reports: weakness Endocrine: Reports: no symptoms Hematologic/Lymphatic: Reports: no symptoms Allergies: Coded Allergies: ASPIRIN (Unverified Allergy, Unknown, 02/08/20) All Systems: reviewed and negative except above Subjective dizzy with significant orthostatic hypotension. unable to walk with therapy. intermittent abd pain and nausea. no vomiting Objective Last 24 Hour Vital Signs Date Time Temp Pulse Resp B/P (MAP) Pulse Ox O2 Delivery O2 Flow Rate FiO2 08/10/20 16:00 98.0 100 16 112/82 (92) 100 08/10/20 12:00 97.3 96 16 121/72 (88) 100 08/10/20 09:00 Nasal Cannula 2.0 08/10/20 08:00 97.9 100 16 139/89 (106) 100 08/10/20 05:37 155/73 08/10/20 04:00 97.3 99 16 155/73 (100) 100 08/10/20 00:00 97.3 99 16 140/90 (107) 99 08/09/20 22:00 139/79 08/09/20 21:00 98 130/77 08/09/20 20:47 Nasal Cannula 2.0 08/09/20 20:00 99 103 08/09/20 20:00 96.8 98 16 130/77 (94) 100 Intake and Output 08/09/20 08/10/20 19:00 07:00 Intake Total 200 ml Balance 200 ml Intake Oral 200 ml # Voids 2 Laboratory Tests 08/09/20 17:10: POC Whole Blood Glucose 165H 08/09/20 20:19: POC Whole Blood Glucose 140H 08/10/20 05:43: POC Whole Blood Glucose 223H Height (Feet): 5 Height (Inches): 5.00 Weight (Pounds): 140 Objective General Appearance: WD/WN, alert EENT: normal ENT inspection Neck: normal alignment Cardiovascular: normal rate, regular rhythm Respiratory/Chest: chest wall non-tender, lungs clear, normal breath sounds Abdomen: normal bowel sounds, non tender, soft, no organomegaly Edema: no edema noted Leg (L), no edema noted 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) 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, no motor/sensory deficits, abnormal gait, alert, oriented x 3 Assessment/Plan Problem List: (1) GIB (gastrointestinal bleeding) ICD Codes: K92.2 - Gastrointestinal hemorrhage, unspecified SNOMED: 95517747 (2) Hypertensive emergency ICD Codes: I16.1 - Hypertensive emergency SNOMED: 366404832266307 (3) ESRD on dialysis ICD Codes: N18.6 - End stage renal disease; Z99.2 - Dependence on renal dialysis SNOMED: 208461618 (4) Type 1 diabetes ICD Codes: E10.9 - Type 1 diabetes mellitus without complications SNOMED: 13812306 (5) Nausea & vomiting ICD Codes: R11.2 - Nausea with vomiting, unspecified SNOMED: 11961968 (6) Gastroparesis diabeticorum ICD Codes: E11.43 - Type 2 diabetes mellitus with diabetic autonomic (poly)neuropathy; K31.84 - Gastroparesis SNOMED: 06494250, 561501998 (7) HIV (human immunodeficiency virus infection) ICD Codes: B20 - Human immunodeficiency virus [HIV] disease SNOMED: 20550781 Status: stable, progressing Assessment/Plan: add midodrine january hose check cortisol level consider florinef HD ?snf Ben Ibarra MD Aug 10, 2020 17:00
--- NOTE | 2020-08-10 19:16 | Nephrology Progress Note ---
Assessment/Plan Problem List: (1) Hyperglycemia (2) ESRD (end stage renal disease) (3) HIV (human immunodeficiency virus infection) (4) Gastroparesis diabeticorum (5) Hypertensive emergency (6) GIB (gastrointestinal bleeding) (7) Type 1 diabetes Plan bp better, stable on dialysis, HD 08/08 still c/o abd pain, minimize opiates, GI eval ongoing had egd and flex sig, +gastritis, orthostatic earlier today likely from meds and prolonged bedrest, hold parameters, try to mobilize Subjective Constitutional: Reports: weakness HEENT: Reports: no symptoms Genitourinary: Reports: no symptoms Neurologic/Psychiatric: Reports: no symptoms Subjective still nausea+abdominal pain Objective Objective Last 24 Hour Vital Signs Date Time Temp Pulse Resp B/P (MAP) Pulse Ox O2 Delivery O2 Flow Rate FiO2 08/10/20 16:00 98.0 100 16 112/82 (92) 100 08/10/20 12:00 97.3 96 16 121/72 (88) 100 08/10/20 09:00 Nasal Cannula 2.0 08/10/20 08:00 97.9 100 16 139/89 (106) 100 08/10/20 05:37 155/73 08/10/20 04:00 97.3 99 16 155/73 (100) 100 08/10/20 00:00 97.3 99 16 140/90 (107) 99 08/09/20 22:00 139/79 08/09/20 21:00 98 130/77 08/09/20 20:47 Nasal Cannula 2.0 08/09/20 20:00 99 103 08/09/20 20:00 96.8 98 16 130/77 (94) 100 Intake and Output 08/09/20 08/10/20 19:00 07:00 Intake Total 200 ml Balance 200 ml Intake Oral 200 ml # Voids 2 Laboratory Tests 08/09/20 20:19: POC Whole Blood Glucose 140H 08/10/20 05:43: POC Whole Blood Glucose 223H Height (Feet): 5 Height (Inches): 5.00 Weight (Pounds): 140 General Appearance: no apparent distress, alert EENT: normal ENT inspection Neck: normal alignment Cardiovascular: regular rhythm Respiratory/Chest: lungs clear Extremities: no edema 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
[2020-08-10 20:00] VITALS: BP 104/42
[2020-08-11] VITALS: BP 117/59
--- NOTE | 2020-08-11 01:05 | Cardiology Progress Note ---
Subjective DATE OF SERVICE: Aug 10, 2020 S/P panendoscopy 08/08/20; findings notable only for non-erosive gastritis. Very lightheaded and dizzy; cannot ambulate safely. He has continued nausea, but no vomiting seen by staff. Objective Last 24 Hour Vital Signs Date Time Temp Pulse Resp B/P (MAP) Pulse Ox O2 Delivery O2 Flow Rate FiO2 08/11/20 00:00 98.4 103 18 117/59 (78) 95 08/10/20 21:20 104/42 08/10/20 21:00 Room Air 08/10/20 20:27 106 109/42 08/10/20 20:00 97.5 106 18 104/42 (62) 98 08/10/20 16:00 98.0 100 16 112/82 (92) 100 08/10/20 12:00 97.3 96 16 121/72 (88) 100 08/10/20 09:00 Nasal Cannula 2.0 08/10/20 08:00 97.9 100 16 139/89 (106) 100 08/10/20 05:37 155/73 08/10/20 04:00 97.3 99 16 155/73 (100) 100 ROS: unchanged from my evaluation of 08/01/20. HEENT: normal ENT inspection RHYTHM: NSR, ST LUNGS: lungs clear bilaterally CARDIAC: normal rate, regular rhythm, normal S1 and S2, tachycardia, gallop/S4 ABDOMEN: normal bowel sounds, soft, tender - diffusely, slightly distended EXTREMITIES: normal range of motion, No edema, other - RUE AV fistula with thrill palpable Laboratory Tests Test 08/10/20 05:43 08/10/20 20:25 POC Whole Blood Glucose 223 MG/DL (74-106) H Pending Assessment/Plan Assessment/Plan Cyclic vomiting seems controlled IRDM with Gastroparesis Gastritis and hx GI bleed Hypertensive urgency resolved ESRD Secondary sinus tachycardia recovered HIV + Orthostatic hypotension due to meds. Adjust current oral antiHTN regimen - with hold parameters. HD with UF per renal Bowel regimen per GI Insulin titration Shamir Dunlap MD Aug 11, 2020 01:05
[2020-08-11 04:00] VITALS: BP 135/81
[2020-08-11] MEDS: DiphenhydrAMINE 50mg/ml Inj IVP PRN ×2 (05:41→12:27)
[2020-08-11] MEDS: HydrALAZINE 50mg tab ORAL SCH ×2 (06:00→14:00)
[2020-08-11] MEDS: NovoLOG Insulin Flexpen SUBQ SCH ×6 (06:08→17:18)
[2020-08-11] MEDS: Bethanechol 10mg Tab ORAL SCH ×3 (06:10→17:19)
[2020-08-11 07:32] LABS: CALCIUM 9.6 MG/DL (8.5-10.1); CREATININE 9.6 MG/DL (0.55-1.30); POTASSIUM 4.8 MMOL/L (3.5-5.1)
[2020-08-11 08:00] VITALS: BP 97/59
--- NOTE | 2020-08-11 08:13 | General Progress Note ---
Subjective ROS Limited/Unobtainable: No Constitutional: Reports: malaise, weakness HEENT: Reports: no symptoms Cardiovascular: Reports: no symptoms Respiratory: Reports: no symptoms Gastrointestinal/Abdominal: Reports: no symptoms Genitourinary: Reports: no symptoms Neurologic/Psychiatric: Reports: no symptoms Endocrine: Reports: no symptoms Hematologic/Lymphatic: Reports: no symptoms Allergies: Coded Allergies: ASPIRIN (Unverified Allergy, Unknown, 02/08/20) All Systems: reviewed and negative except above Subjective less dizzy. orthostatics neg. feels well enough to go home Objective Last 24 Hour Vital Signs Date Time Temp Pulse Resp B/P (MAP) Pulse Ox O2 Delivery O2 Flow Rate FiO2 08/11/20 06:00 111/71 08/11/20 04:00 98.1 106 18 135/81 (99) 95 08/11/20 00:00 98.4 103 18 117/59 (78) 95 08/10/20 21:20 104/42 08/10/20 21:00 Room Air 08/10/20 20:27 106 109/42 08/10/20 20:00 97.5 106 18 104/42 (62) 98 08/10/20 16:00 98.0 100 16 112/82 (92) 100 08/10/20 12:00 97.3 96 16 121/72 (88) 100 08/10/20 09:00 Nasal Cannula 2.0 Intake and Output 08/10/20 08/11/20 19:00 07:00 Intake Total 480 ml Balance 480 ml Intake Oral 480 ml Laboratory Tests 08/10/20 20:25: POC Whole Blood Glucose [Pending] 08/11/20 05:45: White Blood Count [Pending], Red Blood Count [Pending], Hemoglobin [Pending], Hematocrit [Pending], Mean Corpuscular Volume [Pending], Mean Corpuscular Hemoglobin [Pending], Mean Corpuscular Hemoglobin Concent [Pending], Red Cell Distribution Width [Pending], Platelet Count [Pending], Mean Platelet Volume [Pending], Neutrophils (%) (Auto) [Pending], Lymphocytes (%) (Auto) [Pending], Monocytes (%) (Auto) [Pending], Eosinophils (%) (Auto) [Pending], Basophils (%) (Auto) [Pending], Sodium Level 134L, Potassium Level 4.8, Chloride Level 95L, Carbon Dioxide Level 23, Anion Gap 16H, Blood Urea Nitrogen 23H, Creatinine 9.6H , Estimat Glomerular Filtration Rate 7.9, Glucose Level 161H, Calcium Level 9.6, Cortisol AM Sample [Pending] Height (Feet): 5 Height (Inches): 5.00 Weight (Pounds): 140 Objective General Appearance: WD/WN, alert EENT: normal ENT inspection Neck: normal alignment Cardiovascular: normal rate, regular rhythm Respiratory/Chest: chest wall non-tender, lungs clear, normal breath sounds Abdomen: normal bowel sounds, non tender, soft, no organomegaly Edema: no edema noted Leg (L), no edema noted 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, no motor/sensory deficits, abnormal ga it, alert, oriented x 3 Assessment/Plan Problem List: (1) GIB (gastrointestinal bleeding) ICD Codes: K92.2 - Gastrointestinal hemorrhage, unspecified SNOMED: 98606278 (2) Hypertensive emergency ICD Codes: I16.1 - Hypertensive emergency SNOMED: 429274819536957 (3) ESRD on dialysis ICD Codes: N18.6 - End stage renal disease; Z99.2 - Dependence on renal dialysis SNOMED: 853969028 (4) Type 1 diabetes ICD Codes: E10.9 - Type 1 diabetes mellitus without complications SNOMED: 11919827 (5) Nausea & vomiting ICD Codes: R11.2 - Nausea with vomiting, unspecified SNOMED: 61683878 (6) Gastroparesis diabeticorum ICD Codes: E11.43 - Type 2 diabetes mellitus with diabetic autonomic (poly)neuropathy; K31.84 - Gastroparesis SNOMED: 65927702, 591038137 (7) HIV (human immunodeficiency virus infection) ICD Codes: B20 - Human immunodeficiency virus [HIV] disease SNOMED: 91668546 Status: stable, progressing Assessment/Plan: dc planning on midodrine HD today dc after Ben Ibarra MD Aug 11, 2020 08:13
[2020-08-11 08:30] LABS: HEMATOCRIT 35.1 % (42.0-52.0); HEMOGLOBIN 11.9 G/DL (14.2-18.0); MEAN CORPUSCULAR VOLUME 98 FL (80-99); PLATELET COUNT 131 K/UL (150-450); WHITE BLOOD COUNT 3.4 K/UL (4.8-10.8)
[2020-08-11] MEDS: Losartan 50mg tab ORAL SCH ×2 (08:51→09:00)
[2020-08-11] MEDS ORDERED: Heparin Sod 1000 units/ml 10ml IV PRN (09:00)
[2020-08-11] MEDS: Imipramine 10mg tab ORAL SCH (09:13)
[2020-08-11] MEDS: Dolutegravir Sodium 50mg tab ORAL SCH (09:13)
--- NOTE | 2020-08-11 09:15 | Nephrology Progress Note ---
Assessment/Plan Problem List: (1) Hyperglycemia (2) ESRD (end stage renal disease) (3) HIV (human immunodeficiency virus infection) (4) Gastroparesis diabeticorum (5) Hypertensive emergency (6) GIB (gastrointestinal bleeding) (7) Type 1 diabetes Plan stable on dialysis, HD 08/08 still c/o abd pain, minimize opiates, GI eval ongoing had egd and flex sig, +gastritis, orthostatic earlier likely from meds and prolonged bedrest, hold parameters, try to mobilize, usual dialysis and saturday Subjective Constitutional: Reports: weakness HEENT: Reports: no symptoms Neurologic/Psychiatric: Reports: no symptoms Subjective still nausea+abdominal pain Objective Objective Last 24 Hour Vital Signs Date Time Temp Pulse Resp B/P (MAP) Pulse Ox O2 Delivery O2 Flow Rate FiO2 08/11/20 08:56 113 97/59 08/11/20 08:51 97/59 08/11/20 08:00 97.7 113 18 97/59 (72) 97 08/11/20 06:00 111/71 08/11/20 04:00 98.1 106 18 135/81 (99) 95 08/11/20 00:00 98.4 103 18 117/59 (78) 95 08/10/20 21:20 104/42 08/10/20 21:00 Room Air 08/10/20 20:27 106 109/42 08/10/20 20:00 97.5 106 18 104/42 (62) 98 08/10/20 16:00 98.0 100 16 112/82 (92) 100 08/10/20 12:00 97.3 96 16 121/72 (88) 100 Intake and Output 08/10/20 08/11/20 19:00 07:00 Intake Total 480 ml Balance 480 ml Intake Oral 480 ml Laboratory Tests 08/10/20 20:25: POC Whole Blood Glucose [Pending] 08/11/20 05:45: White Blood Count 3.4L, Red Blood Count 3.60L, Hemoglobin 11.9L, Hematocrit 35.1L, Mean Corpuscular Volume 98, Mean Corpuscular Hemoglobin 33.1H, Mean Corpuscular Hemoglobin Concent 34.0, Red Cell Distribution Width 14.0, Platelet Count 131L, Mean Platelet Volume 7.4, Neutrophils (%) (Auto) , Lymphocytes (%) (Auto) , Monocytes (%) (Auto) , Eosinophils (%) (Auto) , Basophils (%) (Auto) , Neutrophils % (Manual) [Pending], Lymphocytes % (Manual) [Pending], Platelet Estimate [Pending], Platelet Morphology [Pending], Sodium Level 134L, Potassium Level 4.8, Chloride Level 95L, Carbon Dioxide Level 23, Anion Gap 16H, Blood Urea Nitrogen 23H, Creatinine 9.6H, Estimat Glomerular Filtration Rate 7.9, Glucose Level 161H, Calcium Level 9.6, Cortisol AM Sample [Pending] 08/11/20 09:10: POC Whole Blood Glucose 113H Height (Feet): 5 Height (Inches): 5.00 Weight (Pounds): 140 General Appearance: no apparent distress EENT: normal ENT inspection Neck: normal alignment Cardiovascular: regular rhythm Respiratory/Chest: lungs clear Abdomen: soft Extremities: no edema 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
[2020-08-11] MEDS: Levemir Flexpen SUBQ SCH ×2 (09:20→17:19)
[2020-08-11 12:00] VITALS: BP 124/85
--- NOTE | 2020-08-11 14:21 | Surgery Progress Note ---
Surgery Progress Note Subjective Symptoms: improved, pain absent, tolerating diet, passing flatus, BM Objective Last 24 Hour Vital Signs Date Time Temp Pulse Resp B/P (MAP) Pulse Ox O2 Delivery O2 Flow Rate FiO2 08/11/20 12:00 98.1 106 18 124/85 (98) 100 08/11/20 08:00 97.7 113 18 97/59 (72) 97 08/11/20 06:00 111/71 08/11/20 04:00 98.1 106 18 135/81 (99) 95 08/11/20 00:00 98.4 103 18 117/59 (78) 95 08/10/20 21:20 104/42 08/10/20 21:00 Room Air 08/10/20 20:27 106 109/42 08/10/20 20:00 97.5 106 18 104/42 (62) 98 08/10/20 16:00 98.0 100 16 112/82 (92) 100 I&O Intake and Output 08/10/20 08/11/20 19:00 07:00 Intake Total 480 ml Balance 480 ml Intake Oral 480 ml Cardiovascular: RSR Respiratory: clear Abdomen: soft, non-tender, present bowel sounds Extremities: no tenderness, no cyanosis Laboratory Tests Test 08/10/20 20:25 08/11/20 05:45 08/11/20 09:10 08/11/20 12:17 POC Whole Blood Glucose Pending 113 MG/DL (74-106) H 268 MG/DL (74-106) H White Blood Count 3.4 K/UL (4.8-10.8) L Red Blood Count 3.60 M/UL (4.70-6.10) L Hemoglobin 11.9 G/DL (14.2-18.0) L Hematocrit 35.1 % (42.0-52.0) L Mean Corpuscular Volume 98 FL (80-99) Mean Corpuscular Hemoglobin 33.1 PG (27.0-31.0) H Mean Corpuscular Hemoglobin Concent 34.0 G/DL (32.0-36.0) Red Cell Distribution Width 14.0 % (11.6-14.8) Platelet Count 131 K/UL (150-450) L Mean Platelet Volume 7.4 FL (6.5-10.1) Neutrophils (%) (Auto) % (45.0-75.0) Lymphocytes (%) (Auto) % (20.0-45.0) Monocytes (%) (Auto) % (1.0-10.0) Eosinophils (%) (Auto) % (0.0-3.0) Basophils (%) (Auto) % (0.0-2.0) Differential Total Cells Counted 100 Neutrophils % (Manual) 52 % (45-75) Lymphocytes % (Manual) 35 % (20-45) Monocytes % (Manual) 11 % (1-10) H Eosinophils % (Manual) 2 % (0-3) Basophils % (Manual) 0 % (0-2) Band Neutrophils 0 % (0-8) Platelet Estimate Decreased L Platelet Morphology Normal Hypochromasia 1+ Sodium Level 134 MMOL/L (136-145) L Potassium Level 4.8 MMOL/L (3.5-5.1) Chloride Level 95 MMOL/L (98-107) L Carbon Dioxide Level 23 MMOL/L (21-32) Anion Gap 16 mmol/L (5-15) H Blood Urea Nitrogen 23 mg/dL (7-18) H Creatinine 9.6 MG/DL (0.55-1.30) H Estimat Glomerular Filtration Rate 7.9 mL/min (>60) Glucose Level 161 MG/DL (74-106) H Calcium Level 9.6 MG/DL (8.5-10.1) Cortisol AM Sample Pending Plan Problems: (1) Chest pain (2) Abdominal pain Assessment & Plan: This is a 22-year-old male presenting with chest pain radiating to the abdomen. States initially abdominal pain was cramping but now it sharp. States began on Saturday of last week and has been persistent since. States the radiation of the pain from the chest to the abdomen is more recent. Has had history of chronic abdominal pain in the past but states that this episode is different. When asked about compared to last episode when he was admitted states is very different. States he has been having nausea and emesis. States now he is hungry and wants food. No nausea vomiting fever chills at this moment. Labs noted. Imaging reviewed. No obstructive symptoms. Exam fairly benign. No acute surgical intervention planned. Okay for diet. Trend labs. IV fluids potential dehydration. Will follow with serial exams and recommendations. Thank you for let me participate in patient's care d/c planning feels better wants more normal food but understands renal diet ABDOMEN: Liver: Unremarkable. Gallbladder and bile ducts: Unremarkable. No calcified stones. No ductal dilation. Pancreas: Unremarkable. No ductal dilation. Spleen: Unremarkable. No splenomegaly. Adrenals: Unremarkable. No mass. Kidneys and ureters: Bilateral punctate nonobstructing nephrolithiasis, with a 1-2 mm stones in both kidneys. No hydronephrosis or hydroureter. Stomach and bowel: Mild wall thickening throughout the descending colon and proximal sigmoid colon. Remainder of the colon appears unremarkable. No abnormally distended loops of small bowel. GE junction and stomach appear unremarkable. PELVIS: Appendix: No findings to suggest acute appendicitis. Bladder: Unremarkable. No stones. Reproductive: The prostate gland and seminal vesicles appear unremarkable. ABDOMEN and PELVIS: Intraperitoneal space: Unremarkable. No free air. No significant fluid collection. Bones/joints: No acute fracture. No dislocation. Soft tissues: Unremarkable. Vasculature: Unremarkable. No abdominal aortic aneurysm. Lymph nodes: Unremarkable. No enlarged lymph nodes. IMPRESSION: 1. Mild wall thickening throughout the descending colon and proximal sigmoid colon. This may be related to underdistention versus a mild colitis. No adjacent inflammatory changes, free air, or fluid collections. 2. Bilateral punctate nonobstructing nephrolithiasis, with a 1-2 mm stones in both kidneys. No hydronephrosis or hydroureter. (3) Malignant hypertension (arteriolar nephrosclerosis) (4) Diabetic ketoacidosis (5) Hyperglycemia (6) Pancytopenia (7) Renal failure (8) ESRD (end stage renal disease) (9) Abdominal pain (10) HIV (human immunodeficiency virus infection) (11) Gastroparesis diabeticorum (12) Nausea & vomiting (13) Type 1 diabetes (14) ESRD on dialysis (15) Liver hemangioma (16) Hypertensive urgency (17) Noncompliance (18) Uncontrolled hypertension (19) Hypertensive emergency (20) Hypertensive emergency Kenney Friend Aug 11, 2020 14:21
[2020-08-11 16:00] VITALS: BP 143/88
--- NOTE | 2020-08-11 17:41 | Cardiology Progress Note ---
Subjective DATE OF SERVICE: Aug 11, 2020 Still feels dizzy. Low BP noted this morning of 96 systolic. AntiHTN regimen decreased last nite. S/P panendoscopy 08/08/20; findings notable only for non-erosive gastritis. He has continued nausea, but no vomiting seen by staff. Objective Last 24 Hour Vital Signs Date Time Temp Pulse Resp B/P (MAP) Pulse Ox O2 Delivery O2 Flow Rate FiO2 08/11/20 16:00 97.9 104 18 143/88 (106) 100 08/11/20 12:00 98.1 106 18 124/85 (98) 100 08/11/20 09:00 Room Air 08/11/20 09:00 104 109 111 08/11/20 08:00 97.7 113 18 97/59 (72) 97 08/11/20 06:00 111/71 08/11/20 04:00 98.1 106 18 135/81 (99) 95 08/11/20 00:00 98.4 103 18 117/59 (78) 95 08/10/20 21:20 104/42 08/10/20 21:00 Room Air 08/10/20 20:27 106 109/42 08/10/20 20:00 97.5 106 18 104/42 (62) 98 ROS: unchanged from my evaluation of 08/01/20. HEENT: normal ENT inspection RHYTHM: NSR, ST LUNGS: lungs clear bilaterally CARDIAC: normal rate, regular rhythm, normal S1 and S2, tachycardia, gallop/S4 ABDOMEN: normal bowel sounds, soft, tender - diffusely, slightly distended EXTREMITIES: normal range of motion, No edema, other - RUE AV fistula with thrill palpable Laboratory Tests Test 08/10/20 20:25 08/11/20 05:45 08/11/20 09:10 08/11/20 12:17 POC Whole Blood Glucose Pending 113 MG/DL (74-106) H 268 MG/DL (74-106) H White Blood Count 3.4 K/UL (4.8-10.8) L Red Blood Count 3.60 M/UL (4.70-6.10) L Hemoglobin 11.9 G/DL (14.2-18.0) L Hematocrit 35.1 % (42.0-52.0) L Mean Corpuscular Volume 98 FL (80-99) Mean Corpuscular Hemoglobin 33.1 PG (27.0-31.0) H Mean Corpuscular Hemoglobin Concent 34.0 G/DL (32.0-36.0) Red Cell Distribution Width 14.0 % (11.6-14.8) Platelet Count 131 K/UL (150-450) L Mean Platelet Volume 7.4 FL (6.5-10.1) Neutrophils (%) (Auto) % (45.0-75.0) Lymphocytes (%) (Auto) % (20.0-45.0) Monocytes (%) (Auto) % (1.0-10.0) Eosinophils (%) (Auto) % (0.0-3.0) Basophils (%) (Auto) % (0.0-2.0) Differential Total Cells Counted 100 Neutrophils % (Manual) 52 % (45-75) Lymphocytes % (Manual) 35 % (20-45) Monocytes % (Manual) 11 % (1-10) H Eosinophils % (Manual) 2 % (0-3) Basophils % (Manual) 0 % (0-2) Band Neutrophils 0 % (0-8) Platelet Estimate Decreased L Platelet Morphology Normal Hypochromasia 1+ Sodium Level 134 MMOL/L (136-145) L Potassium Level 4.8 MMOL/L (3.5-5.1) Chloride Level 95 MMOL/L (98-107) L Carbon Dioxide Level 23 MMOL/L (21-32) Anion Gap 16 mmol/L (5-15) H Blood Urea Nitrogen 23 mg/dL (7-18) H Creatinine 9.6 MG/DL (0.55-1.30) H Estimat Glomerular Filtration Rate 7.9 mL/min (>60) Glucose Level 161 MG/DL (74-106) H Calcium Level 9.6 MG/DL (8.5-10.1) Cortisol AM Sample Pending Assessment/Plan Assessment/Plan Cyclic vomiting seems controlled IRDM with Gastroparesis Gastritis and hx GI bleed Hypertensive urgency resolved ESRD Secondary sinus tachycardia recovered HIV + Orthostatic hypotension due to meds. Adjust current oral antiHTN regimen - with hold parameters. HD with UF per renal Bowel regimen per GI Insulin titration Mobilize and observe for orthostatic symptoms Shamir Dunlap MD Aug 11, 2020 17:41
--- NOTE | 2020-08-11 19:46 | General Progress Note ---
Subjective Allergies: Coded Allergies: ASPIRIN (Unverified Allergy, Unknown, 02/08/20) Subjective above noted feels better tolerating PO Objective Last 24 Hour Vital Signs Date Time Temp Pulse Resp B/P (MAP) Pulse Ox O2 Delivery O2 Flow Rate FiO2 08/11/20 16:00 97.9 104 18 143/88 (106) 100 08/11/20 12:00 98.1 106 18 124/85 (98) 100 08/11/20 09:00 Room Air 08/11/20 09:00 104 109 111 08/11/20 08:00 97.7 113 18 97/59 (72) 97 08/11/20 06:00 111/71 08/11/20 04:00 98.1 106 18 135/81 (99) 95 08/11/20 00:00 98.4 103 18 117/59 (78) 95 08/10/20 21:20 104/42 08/10/20 21:00 Room Air 08/10/20 20:27 106 109/42 08/10/20 20:00 97.5 106 18 104/42 (62) 98 Intake and Output0 08/10/20 08/11/20 19:00 07:00 Intake Total 480 ml Balance 480 ml Intake Oral 480 ml Laboratory Tests 08/10/20 20:25: POC Whole Blood Glucose [Pending] 08/11/20 05:45: White Blood Count 3.4L, Red Blood Count 3.60L, Hemoglobin 11.9L, Hematocrit 35.1L, Mean Corpuscular Volume 98, Mean Corpuscular Hemoglobin 33.1H, Mean Corpuscular Hemoglobin Concent 34.0, Red Cell Distribution Width 14.0, Platelet Count 131L, Mean Platelet Volume 7.4, Neutrophils (%) (Auto) , Lymphocytes (%) (Auto) , Monocytes (%) (Auto) , Eosinophils (%) (Auto) , Basophils (%) (Auto) , Differential Total Cells Counted 100, Neutrophils % (Manual) 52, Lymphocytes % (Manual) 35, Monocytes % (Manual) 11H, Eosinophils % (Manual) 2, Basophils % (Manual) 0, Band Neutrophils 0, Platelet Estimate DecreasedL, Platelet Morphology Normal, Hypochromasia 1+, Sodium Level 134L, Potassium Level 4.8, Chloride Level 95L, Carbon Dioxide Level 23, Anion Gap 16H, Blood Urea Nitrogen 23H, Creatinine 9.6H, Estimat Glomerular Filtration Rate 7.9, Glucose Level 161H , Calcium Level 9.6, Cortisol AM Sample [Pending] 08/11/20 09:10: POC Whole Blood Glucose 113H 08/11/20 12:17: POC Whole Blood Glucose 268H Height (Feet): 5 Height (Inches): 5.00 Weight (Pounds): 140 Objective WDWN NCAT supple CTA RRR abd soft ND NT no edema Assessment/Plan Status: stable, progressing Assessment/Plan: Assessment - N/V - gastroparesis, improved - h/o gastritis per prior endoscopy - DM - (L) sided colonic wall thickening on CT - ? significance - ESRD / HD - HTN Recommendations BID PPI Bethanecol Elevate HOB monitor H&H po as tolerated anti emetics Alexander Curry MD Aug 11, 2020 19:46
--- NOTE | 2020-08-12 12:12 | Discharge Summary ---
Discharge Summary Discharge Summary _ DATE OF ADMISSION: 08/01/2020 DATE OF DISCHARGE: 08/11/2020 DISCHARGED BY: Dr. Ibarra REASON FOR ADMISSION: 30 years old male with past medical history of diabetes, diabetic gastroparesis, end-stage renal disease, on hemodialysis, hypertension, HIV disease, presented with complaint of abdominal pain with associated nausea and vomiting as well as uncontrolled hypertension. Patient reported several episodes of dark coffee-ground emesis. His stool became dark , appeared black color. He denied diarrhea. On evaluation in emergency department patient was markedly hypertensive with blood pressure 197/129. Patient was tachycardic. No fevers. Patient was unable to take oral medications and oral fluids. Laboratory work-up revealed hemoglobin 11.6, hematocrit 35.2, no leukocytosis. BUN 15, creatinine 6.8, consistent with known history of end-stage renal disease. Glucose 386. Anion gap 16. Troponin 0.042 . EKG revealed sinus rhythm . Chest x-ray revealed no acute cardiopulmonary pathology. Patient was tested negative for COVID-19 . Patient reported 2 weeks ago negative stress test at the outside hospital. Patient subsequently admitted for further management. CONSULTANTS: linen manager Dr. Dunlap GI specialist Dr. Curry rosin barrel filler Dr. Maguire [facility] COURSE: Patient admitted initially to telemetry floor. Antihypertensive regimen was titrated as per linen manager. Blood pressure improved. Hemodialysis provided as per rosin barrel filler recommendations with close monitoring of volumes , renal parameters and electrolytes. Echocardiogram revealed preserved ejection fraction 55 to 60% with moderate concentric left ventricular hypertrophy. No evidence of wall motion abnormality. Supplemental oxygen was on board as needed to keep blood oximetry above 92%. Orthostatic vital signs revealed evidence of orthostatic changes, likely due to medication and prolonged bedrest Patient was ambulated. Antihypertensive regimen was further optimized; blood pressure stabilized. CT scan of the abdomen and pelvis revealed possible mild colitis. No adjacent inflammatory changes. GI specialist followed. Patient subsequently undergone upper endoscopy with biopsy and a flexible sigmoidoscopy with a biopsy, which revealed normal sigmoidoscopy and nonerosive gastritis. Pathology results were unremarkable. Stomach biopsy revealed mild to moderate chronic gastritis, no evidence of Helicobacter infection. Otherwise no intestinal metaplasia or malignancy. Surgeon followed. Abdominal exams remained fairly benign . All imaging reviewed. No acute surgical intervention was planned at this time. Surgeon cleared patient to start a diet along with the GI specialist. Diet was resumed . Antiemetic were on board as needed. Patient was on PPI twice a day. Patient was able to tolerate diet. Gastroparesis improved. Strict aspiration and reflux precaution maintained. Hemoglobin and hematocrit were closely monitored with goal to keep hemoglobin a juliana 7. No need for transfusion: hemoglobin and hematocrit remained at baseline; prior to discharge hemoglobin 11.9, hematocrit 35.1. Home medication continued Blood sugar was managed with long-acting Levemir , short acting insulin premeal and sliding scale of insulin as needed . diabetic diet and diabetic teaching provided. Blood sugar improved. Patient clinically stabilized and was ready for discharge home. FINAL DIAGNOSES: Hypertensive emergency GI bleeding , status post upper endoscopy and flexible sigmoidoscopy with biopsy Nonerosive gastritis End-stage renal disease, on hemodialysis Diabetes mellitus with hyperglycemia Gastroparesis diabeticorum History of GI bleeding HIV disease DISCHARGE MEDICATIONS: See Medication Reconciliation list. DISCHARGE INSTRUCTIONS: Patient was discharged home. Follow up with a primary medical doctor in a week. Follow-up with outpatient hemodialysis as scheduled. I have been assigned to dictate discharge summary for this account. I was not involved in the patient's management. Nasima Limon NP Aug 12, 2020 12:12
== END 2020-08-11 18:20 | disposition home or self-care (01) | DRG 377 ==
LOC: EDBD 13:01 → EDUNIT# 13:01 → EMR 13:59 → 2E 14:35 → EDBEDREQ 08-02 12:34 → 4E 08-04 23:55
PROC: 0DB98ZX Excision of Duodenum, Via Natural or Artificial Opening Endoscopic, Diagnostic (ICD-10-PCS; principal; 2020-08-08 09:00)
PROC: 0DB68ZX Excision of Stomach, Via Natural or Artificial Opening Endoscopic, Diagnostic (ICD-10-PCS; principal; 2020-08-08 09:00)
PROC: 0DBN8ZX Excision of Sigmoid Colon, Via Natural or Artificial Opening Endoscopic, Diagnostic (ICD-10-PCS; principal; 2020-08-08 09:00)
PROC: 0DB38ZX Excision of Lower Esophagus, Via Natural or Artificial Opening Endoscopic, Diagnostic (ICD-10-PCS; principal; 2020-08-08 09:00)
DX: K29.71 Gastritis, unspecified, with bleeding (principal); N18.6 End stage renal disease; I16.1 Hypertensive emergency; I12.0 Hypertensive chronic kidney disease with stage 5 chronic kidney disease or end stage renal disease; E10.43 Type 1 diabetes mellitus with diabetic autonomic (poly)neuropathy; K31.84 Gastroparesis; E10.65 Type 1 diabetes mellitus with hyperglycemia; Z88.6 Allergy status to analgesic agent; Z79.4 Long term (current) use of insulin; R11.15 Cyclical vomiting syndrome unrelated to migraine; R00.0 Tachycardia, unspecified; I95.1 Orthostatic hypotension
CPT/HCPCS: 36415; 71045; 74018; 74176; 80048; 80053; 82150; 82533; 82962; 83605; 83690; 83880; 84484; 85007; 85025; 85610; 85651; 85730; 86140; 86850; 86900; 86901; 87081; 93005; 93306; 94003; 94150; 96374; 96375; 96376; 99291; J1815; J2405; S5561; U0002